=== PATIENT | male | born 1950 ===

== ENCOUNTER 2020-06-26 08:46 | Outpatient (REF) | payer MEDICARE, SELFPAY ==
[2020-06-26 10:31] LABS: Cholesterol 175 mg/dL; HDL Cholesterol 52 mg/dL; LDL Cholesterol Calculated 85 mg/dl; Triglycerides 193 mg/dL
== END 2020-06-26 08:47 | disposition home or self-care (01) ==
LOC: HO.LAB 08:46
PROVIDERS: PCP Family Medicine; Visit Provider Internal Medicine Cardiovascular Disease
DX: I25.10 Atherosclerotic heart disease of native coronary artery without angina pectoris (principal); I10 Essential (primary) hypertension; Z95.1 Presence of aortocoronary bypass graft
CPT/HCPCS: 36415; 80061

== ENCOUNTER 2020-07-20 09:29 | Outpatient (REF) | payer MEDICARE, SELFPAY ==
[2020-07-20 10:54] LABS: MANUAL DIFF FLAG NO
[2020-07-20 10:59] LABS: Basophils Percent Auto 0.5 % (0-2); Eosinophils Absolute Auto 0.3 X10*3/uL (0.0-0.4); Eosinophils Percent Auto 3.9 % (0-4); Hematocrit 46.9 % (42-52); Hemoglobin 15.7 g/dl (14.0-18.0); Imm Gran Abs Auto 0.02 X10*3/uL (0.00-0.03); Imm Gran Pct Auto 0.2 % (0.0-0.4); Lymphocytes Absolute Auto 1.2 X10*3/uL (1.2-4.9); Lymphocytes Percent Auto 14.1 % (20-40); Mean Corpuscular HGB Conc 33.5 g/dl (31.0-36.0); Mean Corpuscular Hemoglobin 29.3 pg (27.0-33.0); Mean Corpuscular Volume 87.7 fL (80-98); Monocytes Absolute Auto 0.6 X10*3/uL (0.1-1.2); Monocytes Percent Auto 7.2 % (2-11); Neutrophils Absolute Auto 6.3 X10*3/uL (2.0-8.3); Neutrophils Percent Auto 74.1 % (45-73); Platelet Count 206 X10*3/uL (160-400); Red Blood Count 5.35 X10*6/uL (4.60-5.80); Red Cell Distribution Width 12.5 % (11.0-16.0); White Blood Count 8.5 X10*3/uL (4.8-10.8)
[2020-07-20 11:03] LABS: Appearance Urine CLEAR; Color Urine YELLOW; Glucose Urine UA >=1000 MG/DL (NEG); Leukocyte Esterase Urine NEG (NEG); Nitrite Urine NEG (NEG); Specific Gravity - Urine 1.025 (1.005-1.025); Urine Blood NEG (NEG); Urine Ketones NEG (NEG); Urine Protein 1+ MG/DL (NEG-TRACE)
[2020-07-20 11:23] LABS: Anion Gap 16 (12-20); Blood Urea Nitrogen 31 mg/dL (9-16); Calcium 9.1 mg/dL (8.4-10.2); Carbon Dioxide 23 mmol/L (22-29); Chloride 104 mmol/L (96-108); Estimated Glomerular Filt Rate 57; Potassium 4.8 mmol/L (3.3-5.1); Sodium 138 mmol/L (135-145)
[2020-07-20 11:25] LABS: Alanine Aminotransferase 17 U/L (0-40); Albumin Level 4.1 g/dL (3.5-5.0); Alkaline Phosphatase 89 U/L (39-117); Anion Gap 13 (12-20); Aspartate Amino Transferase 18 U/L (5-37); Bilirubin Total 0.4 mg/dL (0.0-1.0); Blood Urea Nitrogen 30 mg/dL (9-16); Calcium 8.8 mg/dL (8.4-10.2); Carbon Dioxide 25 mmol/L (22-29); Chloride 104 mmol/L (96-108); Estimated Glomerular Filt Rate 53; Glucose Fasting 169 mg/dL (60-99); Iron 57 mcg/dL (45-160); Percent Iron Saturation 19 % (15-50); Potassium 4.8 mmol/L (3.3-5.1); Sodium 137 mmol/L (135-145); Total Iron Binding Capacity 298 mcg/dL (228-428); Total Protein 7.3 g/dL (6.5-8.0); Unsaturated Iron Binding 241 ug/dL
[2020-07-20 11:30] LABS: Cholesterol 82 mg/dL; HDL Cholesterol 43 mg/dL; LDL Cholesterol Calculated 12 mg/dl; Triglycerides 135 mg/dL
[2020-07-20 11:40] LABS: Mucus Urine TRACE /LPF; RBC Urine 0 /HPF (0); Squamous Epithelial Cell Urine TRACE /LPF; WBC Urine 0 /HPF (0-4)
[2020-07-20 11:42] LABS: Creatinine Urine 158.94 mg/dL; Microalbum/Creatinine Ratio Ur 251.4 ug/mg cr; Protein/Creatinine Ratio, Ur 0.45 (<0.2); Total Protein Urine Random 71 mg/dL (<12)
[2020-07-20 11:48] LABS: Estimated Average Glucose 197 mg/dL; Hemoglobin A1c % 8.5 %
[2020-07-20 11:53] LABS: Ferritin 86 ng/mL (20-250)
[2020-07-20 11:59] LABS: Folate 13.7 ng/mL (> or = 4.0); Vitamin B12 548 pg/mL (200-900)
== END 2020-07-20 09:30 | disposition home or self-care (01) ==
LOC: HO.LAB 09:29
PROVIDERS: Absent Provider Internal Medicine Cardiovascular Disease; PCP Family Medicine; Visit Provider Internal Medicine Nephrology
DX: E11.65 Type 2 diabetes mellitus with hyperglycemia (principal); E78.5 Hyperlipidemia, unspecified; R80.9 Proteinuria, unspecified; I13.0 Hypertensive heart and chronic kidney disease with heart failure and stage 1 through stage 4 chronic kidney disease, or unspecified chronic kidney disease; E11.22 Type 2 diabetes mellitus with diabetic chronic kidney disease; N18.31 Chronic kidney disease, stage 3a; I50.22 Chronic systolic (congestive) heart failure
CPT/HCPCS: 36415; 80051; 80053; 80061; 81001; 81003; 82043; 82306; 82310; 82565; 82607; 82728; 82746; 83036; 83540; 84156; 84520; 85025

== ENCOUNTER 2020-07-24 08:25 | Outpatient (REF) | payer MEDICARE, SELFPAY | END 2020-07-24 08:26 | disposition home or self-care (01) | LOC: HO.LAB 08:25 | PROVIDERS: Visit Provider Internal Medicine | DX: Z20.822 Contact with and (suspected) exposure to COVID-19 (principal) | CPT/HCPCS: 36415; C9803; U0003; U0005 ==

== ENCOUNTER 2020-09-25 11:03 | Outpatient (REF) | payer MEDICARE, SELFPAY | END 2020-09-25 11:04 | disposition home or self-care (01) | LOC: HO.LAB 11:03 | PROVIDERS: Visit Provider Internal Medicine | DX: Z20.822 Contact with and (suspected) exposure to COVID-19 (principal) | CPT/HCPCS: C9803; U0003; U0005 ==

== ENCOUNTER 2020-10-16 09:27 | Outpatient (REF) | payer MEDICARE, SELFPAY | END 2020-10-16 09:28 | disposition home or self-care (01) | LOC: HO.LAB 09:27 | PROVIDERS: Visit Provider Internal Medicine | DX: Z20.822 Contact with and (suspected) exposure to COVID-19 (principal) | CPT/HCPCS: C9803; U0003; U0005 ==

== ENCOUNTER 2020-11-14 09:03 | Emergency (ER) | payer MEDICARE, SELFPAY ==
--- NOTE | ~2020-11-14 | XR_ITS ---
EXAMINATION: XR LUMBOSACRAL SPINE CLINICAL INFORMATION: Fall. Rule out fracture COMPARISON: None TECHNIQUE: Three views of the lumbosacral spine. FINDINGS: Mild straightening of lumbar lordosis. The vertebral heights, alignment and disc heights are normal. There is no visible acute fracture, dislocation or lytic process. The paravertebral soft tissues are normal. XR/XR lumbar spine 2-3V IMPRESSION: Mild straightening of lumbar lordosis likely spasm. No visible acute fracture, dislocation or lytic process seen.
[2020-11-14 09:34] VITALS: BP 186/101; PULSE 78; RESP 18; TEMP 36.6; O2SAT 96; BMI 21.8
--- NOTE | 2020-11-14 11:50 | ED.BACK ---
HPI - Back Pain/Injury General Chief Complaint: Back Pain/Injury Stated Complaint: back pain Time Seen by Provider: 11/14/20 11:20 History of Present Illness HPI Narrative: Patient complains of low back pain after a slip and fall where he hit his back last night, no numbness weakness or tingling no head injury no neck pain no other injury no change to bowel or bladder no incontinence Related Data Previous Rx's Medication Instructions Recorded alirocumab 75 mg/mL subcutaneous 75 mg SUBCUT Q2W 90 Days #7 ml 09/27/20 pen injector atorvastatin 80 mg tablet 80 mg PO BEDTIME #90 tab 09/27/20 acetaminophen 1,000 mg PO Q6H PRN #30 tab 11/14/20 lidocaine 1 patch TOPICAL DAILY #15 ea 11/14/20 oxycodone 5 mg PO Q6H PRN #10 tab 11/14/20 Allergies Allergy/AdvReac Type Severity Reaction Status Date / Time No Known Allergies Allergy Verified 11/15/20 14:47 Review of Systems Review of Systems: Positive for back pain negatives are no fever no chills no dizziness no weakness no numbness weakness or tingling no changes to bowel or bladder no dysuria no frequency no incontinence no radiation of pain no chest pain no neck pain no abdominal pain no rash Yes all other systems are reviewed and are negative PMFSH Past Medical History Source: nursing notes reviewed Social History Social History (System 11/15/20 @ 14:47 by Leslee Gaxiola) Advance Directives: No Advance Directives Information Provided: No Physical Exam Vital Signs: Vital Signs: Last Vital Signs Temp 97.9 F 11/14/20 12:44 Pulse 74 11/14/20 12:44 Resp 16 11/14/20 12:44 BP 167/96 H 11/14/20 12:44 Pulse Ox 99 11/14/20 12:44 Body Mass Index 21.8 General appearance no acute distress Head is normocephalic atraumatic Neck is supple and nontender The chest wall is nontender, lungs are clear to auscultation bilateral The heart no murmur The abdomen is soft nontender The back has lower lumbar tenderness, there is no bruising there was no skin rash the skin is normal there are no wounds, there is diffuse lower lumbar tenderness no focal bony tenderness, no CVA tenderness Extremities full range of motion x4 Neuro no gross motor or sensory deficit Course Course Course Narrative: For patient who sips and fell and developed pain in his back right after the fall did not show any lytic process, no fracture Patient responded well to analgesics and was discharged home feeling better Discharge Plan Discharge Clinical Impression: Strain of lumbar region Patient Disposition: Home, Self-Care Additional Instructions: Use Tylenol as needed You can use lidocaine patch as well If pain is not controlled and if needed you can use oxycodone narcotic Oxycodone nor cottage can cause constipation so use stool softener Colace Follow with primary doctor for physical therapy and further evaluation Return to ER any time for severe pain, fever, changes to bowel and bladder, inability to move her legs normally any worse condition or any concerns Prescriptions: New oxycodone 5 mg tablet 5 mg PO Q6H PRN (Reason: pain) Qty: 10 RF: 0 lidocaine 5 % adhesive patch,medicated 1 patch topical DAILY Qty: 15 RF: 0 acetaminophen 500 mg tablet 1,000 mg PO Q6H PRN (Reason: pain) Qty: 30 RF: 0 No Action atorvastatin 80 mg tablet 80 mg PO BEDTIME Qty: 90 RF: 3 Praluent Pen 75 mg/mL pen injector 75 mg subcut Q2W 90 Days Qty: 7 RF: 3 Interventions: ED Discharge Assessment Last Done: 11/14/20 14:08 Discharge Date/Time: 11/14/20 14:09
[2020-11-14 12:44] VITALS: BP 167/96; PULSE 74; RESP 16; TEMP 36.6; O2SAT 99
--- NOTE | 2020-11-14 12:46 | PC.NURSE ---
ambulatory to bathroom slow/steady
[2020-11-14] MEDS: oxyCODONE HCl Immed Release 5 MG TABLET PO (13:02)
== END 2020-11-14 14:09 | disposition home or self-care (01) ==
PROVIDERS: Emergency Provider Emergency Medicine; PCP Family Medicine
DX: S39.012A Strain of muscle, fascia and tendon of lower back, initial encounter (principal); W18.30XA Fall on same level, unspecified, initial encounter; Y93.9 Activity, unspecified; Y92.9 Unspecified place or not applicable; Y99.9 Unspecified external cause status; Z79.899 Other long term (current) drug therapy
CPT/HCPCS: 72100; 99284

== ENCOUNTER 2021-01-15 00:29 | Emergency (ER) | payer MEDICARE, SELFPAY ==
--- NOTE | 2021-01-15 | ECG_ITS ---
Test Reason : LOWER BACK PAIN Blood Pressure : / mmHG Vent. Rate : 073 BPM Atrial Rate : 073 BPM P-R Int : 178 ms QRS Dur : 108 ms QT Int : 398 ms P-R-T Axes : 036 -03 064 degrees QTc Int : 438 ms Normal sinus rhythm Possible Left atrial enlargement Left ventricular hypertrophy Abnormal ECG When compared with ECG of 03-FEB-2020 21:04, No significant change was found Referred By: Generic ED Physician Electronically Signed By:Javier Lira
--- NOTE | ~2021-01-15 | XR_ITS ---
EXAMINATION: XR CHEST CLINICAL INFORMATION: Cough. Pain. COMPARISON: 06/18/2019 TECHNIQUE: 2 views of the chest were obtained. FINDINGS: Normal symmetric lung volumes. No parenchymal consolidation. No pleural effusion. No pneumothorax. Cardiomediastinal silhouette and pulmonary vascularity are within normal limits. 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 No acute osseous abnormalities. XR/XR chest 2V IMPRESSION: No acute findings.
[2021-01-15 00:42] VITALS: BP 184/108; PULSE 72; RESP 16; TEMP 36.6; O2SAT 97; BMI 22.4
[2021-01-15 01:23] LABS: Basophils Percent Auto 0.3 % (0-2); Eosinophils Absolute Auto 0.3 X10*3/uL (0.0-0.4); Hematocrit 46.2 % (42-52); Hemoglobin 15.5 g/dl (14.0-18.0); Imm Gran Abs Auto 0.03 X10*3/uL (0.00-0.03); Imm Gran Pct Auto 0.3 % (0.0-0.4); Lymphocytes Absolute Auto 1.2 X10*3/uL (1.2-4.9); Lymphocytes Percent Auto 12.7 % (20-40); Mean Corpuscular HGB Conc 33.5 g/dl (31.0-36.0); Mean Corpuscular Hemoglobin 29.2 pg (27.0-33.0); Mean Platelet Volume 10.2 fL (9.4-12.4); Monocytes Absolute Auto 0.8 X10*3/uL (0.1-1.2); Monocytes Percent Auto 7.8 % (2-11); Neutrophils Absolute Auto 7.4 X10*3/uL (2.0-8.3); Neutrophils Percent Auto 75.9 % (45-73); Platelet Count 192 X10*3/uL (160-400); Red Blood Count 5.31 X10*6/uL (4.60-5.80); Red Cell Distribution Width 12.4 % (11.0-16.0); White Blood Count 9.8 X10*3/uL (4.8-10.8)
[2021-01-15 01:24] LABS: MANUAL DIFF FLAG NO
[2021-01-15 01:46] LABS: Troponin-I High Sensitivity 6.2 ng/L (<3.5-35.0)
[2021-01-15 01:48] LABS: Alanine Aminotransferase 11 U/L (0-40); Albumin Level 3.9 g/dL (3.5-5.0); Alkaline Phosphatase 87 U/L (39-117); Anion Gap 15 (12-20); Aspartate Amino Transferase 13 U/L (5-37); Bilirubin Total 0.4 mg/dL (0.0-1.0); Blood Urea Nitrogen 26 mg/dL (9-16); Calcium 9.8 mg/dL (8.4-10.2); Carbon Dioxide 24 mmol/L (22-29); Chloride 102 mmol/L (96-108); Creatinine Clr Calc Pharmacy 45.2; Estimated Glomerular Filt Rate 48; Glucose Random 182 mg/dL (60-115); Potassium 3.8 mmol/L (3.3-5.1); Sodium 137 mmol/L (135-145); Total Protein 7.3 g/dL (6.5-8.0)
[2021-01-15 02:57] VITALS: BP 158/88; PULSE 63; RESP 16; TEMP 36.4; O2SAT 96
[2021-01-15 03:16] LABS: Glucose Urine UA >=1000 MG/DL (NEG); Leukocyte Esterase Urine NEG (NEG); Nitrite Urine NEG (NEG); UACC Culture Trigger NO; Urine Blood NEG (NEG); Urine Ketones NEG (NEG); Urine Protein 2+ MG/DL (NEG-TRACE)
[2021-01-15 03:17] LABS: Appearance Urine CLEAR; Color Urine YELLOW
[2021-01-15 03:25] LABS: Hyaline Casts Urine 0-2 /LPF; RBC Urine 0 /HPF (0); Squamous Epithelial Cell Urine 2+ /LPF; WBC Urine 0-2 /HPF (0-4)
[2021-01-15 03:51] VITALS: BP 133/84; PULSE 63; RESP 15; O2SAT 96
--- NOTE | 2021-01-15 04:41 | ED_ITS ---
HPI - Back Pain/Injury General Chief Complaint: Back Pain/Injury Stated Complaint: lower back pain Time Seen by Provider: 01/15/21 04:30 Source: patient Mode of arrival: ambulatory History of Present Illness HPI Narrative: 70-year-old male who presents with acute onset of right lower back/chest wall pain that started while he was watching television and was not associated with any new cough, shortness of breath although the pain did worsen with deep inspiration as well as movement. In addition, patient denied any dizziness, radiation of the pain, nausea/vomiting and denies symptoms. Related Data Previous Rx's Medication Instructions Recorded alirocumab 75 mg/mL subcutaneous 75 mg SUBCUT Q2W 90 Days #7 ml 09/27/20 pen injector (Praluent Pen) atorvastatin 80 mg tablet 80 mg PO BEDTIME #90 tab 09/27/20 acetaminophen 500 mg tablet 1,000 mg PO Q6H PRN #30 tab 11/14/20 lidocaine 5 % topical patch 1 patch TOPICAL DAILY #15 ea 11/14/20 oxycodone 5 mg tablet 5 mg PO Q6H PRN #10 tab 11/14/20 Allergies Allergy/AdvReac Type Severity Reaction Status Date / Time No Known Allergies Allergy Verified 11/15/20 14:47 Review of Systems Review of Systems: Pertinent positives and negatives as stated in HPI 10 point review of systems is otherwise negative. [facility] Social History Social History (System 11/15/20 @ 14:47 by Leslee Gaxiola) Advance Directives: No Advance Directives Information Provided: No Physical Exam Vital Signs: Vital Signs: Last Vital Signs Temp 97.6 F 01/15/21 02:57 Pulse 63 01/15/21 03:51 Resp 15 01/15/21 03:51 BP 133/84 01/15/21 03:51 Pulse Ox 96 01/15/21 03:51 Body Mass Index 22.4 VITAL SIGNS: Reviewed. GENERAL: Well developed, well nourished, in no acute distress. HEAD: Normocephalic/atraumatic EYES: PERRLA, EOMI OROPHARYNX: no oral lesions noted, posterior pharynx clear LUNGS: Normal breath sounds. No adventitious sounds or accessory muscle use. SpO2<96>, posterior right, lower rib pain CARDIOVASCULAR: Regular rate and rhythm without noted murmurs, no JVD or lower extremity edema. ABDOMEN: Soft, non-tender, non-distended with bowel sounds, no CVA tenderness SKIN: Inspection of the skin reveals no rashes NEUROLOGIC: Alert and oriented x 4. Strength and sensation to light touch were grossly intact x 4. Course Course Course Narrative: 70-year-old male with history and clinical presentation most consistent with musculoskeletal pain in nature and review of all investigations without acute findings. Serial troponins were flat and EKG changes are without acute changes from prior. Low clinical suspicion for pneumonia or PE. All results were discussed with the patient and his at bedside, they were reassured and encouraged to follow up with their primary care provider in the next 2-3 days for re-evaluation. MDM - Back Pain/Injury Lab Data Result diagrams: 01/15/21 01:15 01/15/21 01:15 Labs: Lab Results 01/15/21 01/15/21 01/15/21 Range/Units 01:15 01:15 01:15 WBC 9.8 (4.8-10.8) X10*3/uL RBC 5.31 (4.60-5.80) X10*6/uL Hgb 15.5 (14.0-18.0) g/dl Hct 46.2 (42-52) % MCV 87.0 (80-98) fL MCH 29.2 (27.0-33.0) pg MCHC 33.5 (31.0-36.0) g/dl RDW 12.4 (11.0-16.0) % Plt Count 192 (160-400) X10*3/uL MPV 10.2 (9.4-12.4) fL Immature Gran % (Auto) 0.3 (0.0-0.4) % Neut % (Auto) 75.9 H (45-73) % Lymph % (Auto) 12.7 L (20-40) % [place] % (Auto) 7.8 (2-11) % Eos % (Auto) 3.0 (0-4) % Baso % (Auto) 0.3 (0-2) % Lymph # (Auto) 1.2 (1.2-4.9) X10*3/uL [place] # (Auto) 0.8 (0.1-1.2) X10*3/uL Eos # (Auto) 0.3 (0.0-0.4) X10*3/uL Baso # (Auto) 0.0 (0.0-0.2) X10*3/uL Abs Immat Gran (auto) 0.03 (0.00-0.03) X10*3/uL Absolute Neuts (auto) 7.4 (2.0-8.3) X10*3/uL Absolute Nucleated RBC 0.000 (0.0-0.012) X10*3/uL Nucleated RBC % (auto) 0.0 (0.0-0.2) /100WBC Sodium 137 (135-145) mmol/L Potassium 3.8 D (3.3-5.1) mmol/L Chloride 102 (96-108) mmol/L Carbon Dioxide 24 (22-29) mmol/L Anion Gap 15 (12-20) BUN 26 H (9-16) mg/dL Creatinine 1.46 H (0.5-1.4) mg/dL Estim Creat Clear Calc 45.2 Estimated GFR 48 Random Glucose 182 H (60-115) mg/dL Calcium 9.8 D (8.4-10.2) mg/dL Total Bilirubin 0.4 (0.0-1.0) mg/dL AST 13 (5-37) U/L ALT 11 (0-40) U/L Alkaline Phosphatase 87 (39-117) U/L Troponin I High Sens 6.2 (<3.5-35.0) ng/L Total Protein 7.3 (6.5-8.0) g/dL Albumin 3.9 (3.5-5.0) g/dL Urine Color Urine Appearance Urine pH (5.0-8.0) Ur Specific [place] (1.005-1.025) Urine Protein (NEG-TRACE) MG/DL Urine Glucose (UA) (NEG) MG/DL Urine Ketones (NEG) MG/DL Urine Blood (NEG) Urine Nitrite (NEG) Ur Leukocyte Esterase (NEG) Urine RBC (0) /HPF Urine WBC (0-4) /HPF Ur Squamous Epith Cells /LPF Urine Bacteria /LPF Hyaline Casts /LPF 01/15/21 01/15/21 Range/Units 02:58 04:36 WBC (4.8-10.8) X10*3/uL RBC (4.60-5.80) X10*6/uL Hgb (14.0-18.0) g/dl Hct (42-52) % MCV (80-98) fL MCH (27.0-33.0) pg MCHC (31.0-36.0) g/dl RDW (11.0-16.0) % Plt Count (160-400) X10*3/uL MPV (9.4-12.4) fL Immature Gran % (Auto) (0.0-0.4) % Neut % (Auto) (45-73) % Lymph % (Auto) (20-40) % [place] % (Auto) (2-11) % Eos % (Auto) (0-4) % Baso % (Auto) (0-2) % Lymph # (Auto) (1.2-4.9) X10*3/uL [place] # (Auto) (0.1-1.2) X10*3/uL Eos # (Auto) (0.0-0.4) X10*3/uL Baso # (Auto) (0.0-0.2) X10*3/uL Abs Immat Gran (auto) (0.00-0.03) X10*3/uL Absolute Neuts (auto) (2.0-8.3) X10*3/uL Absolute Nucleated RBC (0.0-0.012) X10*3/uL Nucleated RBC % (auto) (0.0-0.2) /100WBC Sodium (135-145) mmol/L Potassium (3.3-5.1) mmol/L Chloride (96-108) mmol/L Carbon Dioxide (22-29) mmol/L Anion Gap (12-20) BUN (9-16) mg/dL Creatinine (0.5-1.4) mg/dL Estim Creat Clear Calc Estimated GFR Random Glucose (60-115) mg/dL Calcium (8.4-10.2) mg/dL Total Bilirubin (0.0-1.0) mg/dL AST (5-37) U/L ALT (0-40) U/L Alkaline Phosphatase (39-117) U/L Troponin I High Sens 6.2 (<3.5-35.0) ng/L Total Protein (6.5-8.0) g/dL Albumin (3.5-5.0) g/dL Urine Color YELLOW Urine Appearance CLEAR Urine pH 6.0 (5.0-8.0) Ur Specific [place] 1.020 (1.005-1.025) Urine Protein 2+ H (NEG-TRACE) MG/DL Urine Glucose (UA) >=1000 H (NEG) MG/DL Urine Ketones NEG (NEG) MG/DL Urine Blood NEG (NEG) Urine Nitrite NEG (NEG) Ur Leukocyte Esterase NEG (NEG) Urine RBC 0 (0) /HPF Urine WBC 0-2 (0-4) /HPF Ur Squamous Epith Cells 2+ /LPF Urine Bacteria NONE /LPF Hyaline Casts 0-2 /LPF ECG Data Attestation: I personally reviewed and interpreted this ECG as follows: Prior ECG tracings: available for review (02/03/2020 no acute changes on comparison) Interpretation: Normal sinus rhythm, HR -73, no STEMI, NM/QTC are within normal limits and QRS-108 Discharge Plan Discharge Clinical Impression: Right-sided chest wall pain Patient Disposition: Home, Self-Care Instructions: Chest Wall Pain (ED) Additional Instructions: 1. Reanude todos los medicamentos caseros seg?n lo prescrito. 2. Tylenol 1000 mg, por v?a oral, cada 6 horas seg?n sea necesario para controlar el dolor. No exceda los 4000 mg en 24 horas. 3. Recomiende el parche de lidoca?na, est? disponible sin receta y debe aplic arse en el ?maegan de m?xima sensibilidad omi se indica en el empaque exterior. 4. Omid un seguimiento con connors proveedor de atenci?n primaria para angelina reevaluaci?n y un tratamiento ambulatorio adicional. Regrese a la benigno de emergencias si magalys s?ntomas empeoran de manera aguda. Prescriptions: No Action atorvastatin 80 mg tablet 80 mg PO BEDTIME Qty: 90 RF: 3 Praluent Pen 75 mg/mL pen injector 75 mg subcut Q2W 90 Days Qty: 7 RF: 3 oxycodone 5 mg tablet 5 mg PO Q6H PRN (Reason: pain) Qty: 10 RF: 0 lidocaine 5 % adhesive patch,medicated 1 patch topical DAILY Qty: 15 RF: 0 acetaminophen 500 mg tablet 1,000 mg PO Q6H PRN (Reason: pain) Qty: 30 RF: 0 Referrals: Physician,Unknown [Primary Care Provider] - 2 days Print Language: Amharic
[2021-01-15 05:06] LABS: Troponin-I High Sensitivity 6.2 ng/L (<3.5-35.0)
[2021-01-15 06:00] VITALS: BP 156/94; PULSE 68; RESP 16; O2SAT 97
[2021-01-15] MEDS: Lidocaine 4 % Patch ADH..PATCH 1 PATCH TRANSDERMA (06:03)
[2021-01-15] MEDS: Acetaminophen 325 MG TABLET 975 MG PO (06:03)
[2021-01-15] MEDS: Ibuprofen 400 MG TABLET PO (06:04)
== END 2021-01-15 06:06 | disposition home or self-care (01) ==
PROVIDERS: Emergency Provider Student in an Organized Health Care Education/Training Program
DX: R07.89 Other chest pain (principal)
CPT/HCPCS: 36415; 71046; 80053; 81001; 84484; 85025; 93005; 99284

== ENCOUNTER 2021-02-24 09:16 | Outpatient (REF) | payer MEDICARE, SELFPAY ==
[2021-02-24 10:10] LABS: Cholesterol 156 mg/dL; HDL Cholesterol 50 mg/dL; LDL Cholesterol Calculated 68 mg/dl; Triglycerides 194 mg/dL
== END 2021-02-24 09:17 | disposition home or self-care (01) ==
LOC: HO.LAB 09:16
PROVIDERS: PCP Family Medicine; Visit Provider Internal Medicine Cardiovascular Disease
DX: I25.10 Atherosclerotic heart disease of native coronary artery without angina pectoris (principal)
CPT/HCPCS: 36415; 80061

== ENCOUNTER → 2021-03-08 12:08 | Outpatient (BNVA) | payer MEDICARE, SELFPAY | PROVIDERS: PCP Family Medicine; Referring Provider Family Medicine; Visit Provider Internal Medicine Cardiovascular Disease | DX: I25.10 Atherosclerotic heart disease of native coronary artery without angina pectoris (principal); I25.5 Ischemic cardiomyopathy | CPT/HCPCS: 99212 ==

== ENCOUNTER → 2021-04-12 13:20 | Outpatient (REF) | payer MEDICARE, SELFPAY ==
--- NOTE | 2021-04-12 14:13 | CA_ITS ---
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 [id number] LV systolic dysfunction with LVEF of 40-45% with impaired relaxation filling pattern 2. Normal cardiac valvular Doppler 3. Normal RV systolic pressure 4. No pericardial effusion Findings Left Ventricle Normal left ventricular cavity size. There is normal left ventricular wall thickness. The left ventricular systolic function is mild to moderately decreased. The visually estimated ejection fraction is between 40-45%. Spectral Doppler is indicative of an impaired relaxation filling pattern. E/E prime ratio is between 8 and 15 consistent with indeterminate filling pressures. Wall Motion Rest Echo Findings The inferoseptal wall, the basal inferior, mid inferior, and basal inferolateral segments are hypokinetic. All other scored wall segments showed normal motion. Right Ventricle Normal right ventricular cavity size and systolic function. Atria The left atrium is likely dilated. There is a mobile atrial septum noted. There is no evidence of interatrial shunt. The right atrium is normal in size. Aortic Valve There is mild calcification of the aortic valve. There is mild thickening of the aortic valve. There is no aortic valve stenosis. There is no aortic valve regurgitation. Mitral Valve There is mild anterior and posterior mitral leaflet thickening. There is trace mitral valve regurgitation. There is no mitral valve stenosis. Pulmonic Valve The pulmonic valve was not well visualized. Tricuspid Valve Normal tricuspid valve structure. There is mild tricuspid valve regurgitation. The right ventricular systolic pressure is normal. The right ventricular systolic pressure is 19 mmHg. Normal right atrial pressure. There is no evidence of pulmonary hypertension. Great Vessels All visible segments of the aorta are normal in size. The pulmonary artery was not well visualized. Venous The inferior vena cava is normal in size and collapses greater than 50% with inspiration. Pericardium/Pleural There is no evidence of pericardial effusion. Measurements 2D Linear Measurements IVSd: 1.30 0.6-0.9/0.6-1.0 cm LVIDd: 4.47 3.9-5.3/4.2-5.9 cm LVIDd Index: 2.42 2.4-3.2/2.2-3.1 cm/m2 LVIDs: 3.83 2.0-3.6 cm LVPWd: 1.03 0.7-1.1 cm Ao Root: 2.90 2.1-3.5 cm LA Diam: 3.80 2.7-3.8/3.0-4.0 cm LAIDs Index: 2.05 1.5-2.3 cm/m2 LV Mass: 234.12 67-162/88-224 g LV Mass Index: 126.55 43-95/49-115 g/m2 LVOT Diam: 2.20 3.0+(-)1.3 cm 2D Systolic Function EF 4C: 33.90 >55% EF 2C: 41.00 >55% Mitral Valve MV Pk E: 0.37 MV PK A: 0.67 MV Decel Time: 526.00 E/A: 0.60 E'Lateral: 8.92 E'Medial: 4.03 E/E' Med: 9.10 E/E' Lat: 4.10 PHT: 154.00 MVA PHT: 1.43 Decel Owen: 0.70 Aortic Valve AoV Pk Dawson: 1.53 AoV Pk Grad: 9.00 LVOT LVOT Pk Dawson: 0.71 LVOT Mn Dawson: 0.48 LVOT VTI: 0.13 LVOT Pk Grad: 2.00 LVOT Mn Grad: 1.00 LVOT Diam: 2.20 LVOT Area: 3.80 Diastolic Function MV Pk E: 0.37 MV Pk A: 0.67 E/A: 0.60 E'Medial: 4.03 E/E' Med: 9.10 E' Laterial: 8.92 E/E' Lat: 4.10 Right Ventricle TAPSE (mm): 1.39 Tricuspid Valve TR Pk Dawson: 2.01 TR Pk Grad: 16.00 RA Press: 3.00 RVSP: 19.00 Great Vessels Aorta Ao Root-2D: 2.90 2.0-3.7 cm Ao Asc: 3.10 2.1-3.4 cm Updated in Other Vendor System with Status of Final João Interiano MD electronically signed on 04/13/2021 2:00:09 PM with status of Final
== END ==
LOC: HO.CARD 13:20
PROVIDERS: PCP Family Medicine; Visit Provider Internal Medicine Cardiovascular Disease
DX: I25.5 Ischemic cardiomyopathy (principal)
CPT/HCPCS: 93306

== ENCOUNTER → 2021-05-14 09:47 | Outpatient (REF) | payer MEDICARE, SELFPAY | LOC: HO.CARD 09:47 | PROVIDERS: Visit Provider Internal Medicine Cardiovascular Disease | DX: Z13.89 Encounter for screening for other disorder (principal) | CPT/HCPCS: J0280; J2785 ==

== ENCOUNTER 2021-06-13 12:06 | Outpatient (REF) | payer MEDICARE, SELFPAY ==
[2021-06-13 15:34] LABS: COVID-19 Test Negative (Negative); IDNOW Serial# 55D5AD1C
== END 2021-06-13 12:07 | disposition home or self-care (01) ==
LOC: HO.LAB 12:06
PROVIDERS: Visit Provider Internal Medicine
DX: Z20.822 Contact with and (suspected) exposure to COVID-19 (principal)
CPT/HCPCS: 36415; 87635; C9803

== ENCOUNTER 2021-11-26 17:57 | Emergency (ER) | payer OTHER, SELFPAY ==
[2021-11-26 18:03] VITALS: BP 162/110; PULSE 89; RESP 16; TEMP 36.3; O2SAT 96; BMI 22.5
== END 2021-11-26 22:07 | disposition left against medical advice (07) ==
PROVIDERS: Emergency Provider Emergency Medicine; PCP Family Medicine
DX: G43.909 Migraine, unspecified, not intractable, without status migrainosus (principal)
CPT/HCPCS: 99281

== ENCOUNTER → 2022-02-14 08:11 | Outpatient (REF) | payer OTHER, SELFPAY ==
--- NOTE | ~2022-02-14 | NM_ITS ---
Myocardial perfusion study Indication: Ischemic cardiomyopathy to evaluate for myocardial ischemia Technique: The patient was brought in for a Lexiscan perfusion study on 02/14/2022. Patient performed low-level exercise and was injected 0.4 mg of Lexiscan intravenously. Within a minute of injection, 25 mCi of sestamibi was given intravenously. Images were obtained using the SPECT gamma camera interlaced with the gating device. Images were obtained in supine position. Resting perfusion study was performed on 02/15/2022. Patient was administered 25 mCi of sestamibi intravenously at rest. Images were then obtained in supine position. Images obtained with and without CT attenuation. Total DLP 69 mGy-cm. Images were processed with the software and compared side to side in short axis, horizontal long axis and vertical long axis views. Findings: The stress perfusion study showed non attenuated images show mildly to moderately reduced uptake in the septum, inferoseptal and inferior wall of the LV myocardium. Remainder of the LV myocardium is normally perfused. Attenuation corrected images show mildly reduced uptake in the inferoapical wall of the LV myocardium.. The gated study shows normal LV systolic function with calculated LVEF of 55%. LV cavity is mildly dilated size. The gated study shows reduced wall thickening and contraction of inferior segments. Resting study shows nontender images show no significant change in perfusion pattern compared to stress perfusion study. Attenuation corrected images show mildly reduced uptake in the inferior wall of the LV myocardium. Gating at rest reveals inferior wall motion abnormality with ejection fraction at 47%. The findings are consistent with no clear reversible defect suggestive of ischemia. Possible evidence of nontransmural infarct of the inferior wall.. NM/NM demetra perf SPECT rest & str Impression: 1. Myocardial perfusion imaging study shows no ischemia and possible nontransmural infarct of inferior wall 2. Gated LVEF is 55% with stress and 47% with rest 3. Transient ischemic dilatation not present EKG is nondiagnostic for ischemia
--- NOTE | 2022-02-14 08:13 | CA_ITS ---
Acquisition Time: 2022-02-14 08:30:40 Total Exercise Time: 00:02:00 Test Indications: CARDIOMYOPATHY Medications: SEE H Protocol: LEXISCAN Max HR: 100 BPM 67% of Pred: 148 BPM Max BP: 120/080 mmHG Max Work Load: 1.0 METS Pharmacological stress test with Lexiscan injection, while sitting and kicking his legs, without anginal symptoms, with frequent isolated PVCs and ventricular trigeminy and quadrigeminy, with normotensive response to injection, with nondiagnostic EKG for ischemia. Nuclear images pending. Test reviewed with Dr Interiano Referred By: Madison Ellington Overread By: MADISON ELLINGTON
== END ==
LOC: HO.CARD 08:11
PROVIDERS: Visit Provider Nurse Practitioner Family
DX: I25.5 Ischemic cardiomyopathy (principal)
CPT/HCPCS: 78452; 93017; A9500; J0280; J2785

== ENCOUNTER → 2022-03-07 13:35 | Outpatient (BNVA) | payer OTHER, SELFPAY | PROVIDERS: PCP Family Medicine; Referring Provider Family Medicine; Visit Provider Internal Medicine Cardiovascular Disease | DX: I25.10 Atherosclerotic heart disease of native coronary artery without angina pectoris (principal); I25.5 Ischemic cardiomyopathy | CPT/HCPCS: 93005; 99212 ==

== ENCOUNTER 2022-04-05 07:33 | Emergency (ER) | payer OTHER, SELFPAY ==
--- NOTE | ~2022-04-05 | XR_ITS ---
EXAMINATION: XR CHEST CLINICAL INFORMATION: Weakness. COMPARISON: 01/15/2021 chest radiographs. TECHNIQUE: Frontal view of the chest was obtained. FINDINGS: No significant abnormality is noted involving the heart, lungs, mediastinum, bony thorax or soft tissues. Multilevel sternotomy wires are intact. XR/XR chest 1V IMPRESSION: No acute cardiopulmonary process.
--- NOTE | 2022-04-05 07:37 | ED_ITS ---
HPI - Dizziness General Chief Complaint: Dizziness Stated Complaint: dizziness Time Seen by Provider: 04/05/22 07:34 Source: patient, old records reviewed and diplomatic interpreter Mode of arrival: EMS Limitations: no limitations History of Present Illness HPI Narrative: 71 yo male with hx of CAD s/p CABG x 4 in 2017, HTN, DM, HLD, ischemic cardiomyopathy here with c/o dizziness and fevers since last night. C/o runny nose and states he is so weak he cannot stand. Last took tylenol yesterday. Denies sick contacts, thinks he got his COVID shots. MD elicited complaint: lightheadedness, difficulty walking and other (fever) Onset (ago): day(s) (yesterday) Timing: gradual onset and intermittent Severity: moderate Description: lightheadedness and difficulty walking History of similar symptoms: No Exacerbating factors: movement/ambulation Relieving factors: remaining still Associated symptoms: fever, malaise and nasal congestion Related Data Home Medications Medication Instructions Recorded Confirmed amlodipine 10 mg tablet 10 mg PO QPM 03/08/21 03/07/22 aspirin 81 mg tablet,delayed 81 mg PO DAILY 03/08/21 03/07/22 release carvedilol 25 mg tablet 25 mg PO BID 03/08/21 03/07/22 empagliflozin 25 mg tablet 25 mg PO DAILY 03/08/21 03/07/22 (Jardiance) ezetimibe 10 mg tablet 10 mg PO BEDTIME 03/08/21 03/07/22 hydralazine 10 mg tablet 10 mg PO TID 03/08/21 03/07/22 lisinopril 40 mg tablet 40 mg PO DAILY 03/08/21 03/07/22 metformin 1,000 mg tablet 1,000 mg PO BID 03/08/21 03/07/22 mirtazapine 15 mg tablet 7.5 mg PO DAILY 03/08/21 03/07/22 pantoprazole 40 mg tablet,delayed 40 mg PO DAILY 03/08/21 03/07/22 release spironolactone 25 mg tablet 25 mg PO DAILY 03/08/21 03/07/22 dulaglutide 0.75 mg/0.5 mL mg subcut QWEEK 03/07/22 03/07/22 subcutaneous pen injector (Trulicity) Previous Rx's Medication Instructions Recorded acetaminophen 500 mg tablet 1,000 mg PO Q6H PRN pain #30 tabs 11/14/20 lidocaine 5 % topical patch 1 patch topical DAILY Pain #15 ea 11/14/20 atorvastatin 80 mg tablet 80 mg PO BEDTIME #90 tabs 11/05/21 alirocumab 75 mg/mL subcutaneous 75 mg subcut Q2W 90 days #7 mL 11/14/21 pen injector (Praluent Pen) Allergies Allergy/AdvReac Type Severity Reaction Status Date / Time No Known Allergies Allergy Verified 11/26/21 18:03 Review of Systems Review of Systems: Constitutional : pos Fever, No Chills, No Fatigue ENT/Mouth : No sore throat, pos Rhinorrhea, pos ear pain Eyes: No Eye Pain, No Swelling, No Redness Cardiovascular : No Chest Pain, No SOB, No Dyspnea on Exertion Respiratory : No Cough, No Sputum Gastrointestinal : No Nausea, No Vomiting, No Diarrhea, No abdominal Pain Genitourinary : No Dysuria, No Urinary Frequency, No Hematuria, Musculoskeletal : No joint pain, No Myalgias, No Joint Swelling Skin : No Skin Lesions, No rash Neuro : No Weakness, No Numbness, pos Dizziness, no Headache Psych : No Anxiety/Panic, No Depression Heme/Lymph: No Bruising, No Bleeding,No Lymphadenopathy Endocrine : No Polyuria, No Polydipsia All other systems reviewed and are negative [facility] Past Medical History Attestation statement: The following information was validated with the patient. Medical History CAD (coronary artery disease) Diabetes mellitus HTN (hypertension) Hyperlipidemia Ischemic cardiomyopathy Surgical History S/P CABG x 4 Social History Social History Alcohol intake: never Patient Tobacco Use Status: Never used Tobacco Use of substances other than those prescribed or required for medical reasons: No Advance Directives: No Advance Directives Information Provided: Yes Physical Exam Vital Signs: Vital Signs: Last Vital Signs Temp 98.6 F 04/05/22 09:47 Pulse 95 04/05/22 09:47 Resp 12 04/05/22 09:47 BP 111/68 04/05/22 09:47 Pulse Ox 94 04/05/22 09:47 O2 Del Method 04/05/22 09:47 BMI result Body Mass Index 22.4 Appearance: Alert. Oriented X3. No acute distress. Eyes: Pupils equal, round and reactive to light. ENT: Pharynx normal. bilateral TMs normal Neck: Normal inspection. Neck supple. CVS: tachycardic heart rate and rhythm. Pulses normal. Respiratory: No respiratory distress. Breath sounds normal. Abdomen: Soft and non-tender. Skin: Skin warm and dry. Normal skin color. Normal skin turgor. Extremities: No lower extremity edema. No calf ttp Neuro: Oriented X 3. No motor deficit. No sensory deficit. Course Course Course Narrative: + COVID which is not suprising - no hypoxia, no CP/SOB and patient's saturations > 93% 3 moderna vaccines in the past doubt VTE given lack of CP/SOB. given his poorly controlled cholesterol and need for immuno medication to control statin he is not a candidate to hold statin in light of paxlovid - he would also have to stop amlodipine and remeron. will refer for mAb it is the safest option for him. patient feels better stable for DC, wants to check in for test as well. will fill out mab form MDM - Dizziness MDM Narrative Medical decision making narrative: 71 yo male with hx of CAD s/p CABG x 4 in 2017, HTN, DM, HLD, ischemic cardiomyopathy presents with fevers and feeling lightheaded. At this time will need labs, cultures, lactic acid, (high suspicion viral syndrome) COVID/flu, tylenol, gentle fluids, UA - dispo per results and findings. Lab Data Result diagrams: 04/05/22 08:06 04/05/22 08:06 Labs: Lab Results 04/05/22 04/05/22 04/05/22 Range/Units 07:52 08:06 08:06 WBC 8.8 (4.8-10.8) X10*3/uL RBC 4.81 (4.60-5.80) X10*6/uL Hgb 13.6 L (14.0-18.0) g/dl Hct 41.5 L (42.0-52.0) % MCV 86.3 (80.0-98.0) fL MCH 28.3 (27.0-33.0) pg MCHC 32.8 (31.0-36.0) g/dl RDW 13.4 (11.0-16.0) % Plt Count 165 (160-400) X10*3/uL MPV 10.7 (9.4-12.4) fL Immature Gran % (Auto) 0.3 (0.0-0.4) % Neut % (Auto) 83.0 H (45-73) % Lymph % (Auto) 7.1 L (20-40) % [place] % (Auto) 8.4 (2-11) % Eos % (Auto) 1.0 (0-4) % Baso % (Auto) 0.2 (0-2) % Lymph # (Auto) 0.6 L (1.2-4.9) X10*3/uL [place] # (Auto) 0.7 (0.1-1.2) X10*3/uL Eos # (Auto) 0.1 (0.0-0.4) X10*3/uL Baso # (Auto) 0.0 (0.0-0.2) X10*3/uL Abs Immat Gran (auto) 0.03 (0.00-0.03) X10*3/uL Absolute Neuts (auto) 7.3 (2.0-8.3) x10*3/uL Absolute Nucleated RBC 0.000 (0.0-0.012) X10*3/uL Nucleated RBC % (auto) 0.0 (0.0-0.2) /100WBC ESR 40 H (0-15) MM/HR PT (10.0-13.1) SEC INR (0.9-1.1) Sodium (135-145) mmol/L Potassium (3.3-5.1) mmol/L Chloride (96-108) mmol/L Carbon Dioxide (22-29) mmol/L Anion Gap (12-20) BUN (9-16) mg/dL Creatinine (0.5-1.4) mg/dL Estim Creat Clear Calc Estimated GFR POC Glucose 158 H (60-115) mg/dL Random Glucose (60-115) mg/dL Lactic Acid (0.5-2.0) mmol/L Calcium (8.4-10.2) mg/dL Magnesium (1.6-2.6) mg/dL Total Bilirubin (0.0-1.0) mg/dL Direct Bilirubin (0.0-0.5) mg/dL AST (5-37) U/L ALT (0-40) U/L Alkaline Phosphatase (39-117) U/L Troponin I High Sens (<3.5-35.0) ng/L Total Protein (6.5-8.0) g/dL Albumin (3.5-5.0) g/dL COVID-19 (MARCELLUS) (Negative) COVID-19 Clin Com Influenza Type A (TASHA) (Negative) Influenza Type B (TASHA) (Negative) Influenza A & B Note 04/05/22 04/05/22 04/05/22 Range/Units 08:06 08:06 08:06 WBC (4.8-10.8) X10*3/uL RBC (4.60-5.80) X10*6/uL Hgb (14.0-18.0) g/dl Hct (42.0-52.0) % MCV (80.0-98.0) fL MCH (27.0-33.0) pg MCHC (31.0-36.0) g/dl RDW (11.0-16.0) % Plt Count (160-400) X10*3/uL MPV (9.4-12.4) fL Immature Gran % (Auto) (0.0-0.4) % Neut % (Auto) (45-73) % Lymph % (Auto) (20-40) % [place] % (Auto) (2-11) % Eos % (Auto) (0-4) % Baso % (Auto) (0-2) % Lymph # (Auto) (1.2-4.9) X10*3/uL [place] # (Auto) (0.1-1.2) X10*3/uL Eos # (Auto) (0.0-0.4) X10*3/uL Baso # (Auto) (0.0-0.2) X10*3/uL Abs Immat Gran (auto) (0.00-0.03) X10*3/uL Absolute Neuts (auto) (2.0-8.3) x10*3/uL Absolute Nucleated RBC (0.0-0.012) X10*3/uL Nucleated RBC % (auto) (0.0-0.2) /100WBC ESR (0-15) MM/HR PT 13.3 H (10.0-13.1) SEC INR 1.2 H (0.9-1.1) Sodium 137 (135-145) mmol/L Potassium 4.1 (3.3-5.1) mmol/L Chloride 102 (96-108) mmol/L Carbon Dioxide 25 (22-29) mmol/L Anion Gap 14 (12-20) BUN 18 H (9-16) mg/dL Creatinine 1.24 (0.5-1.4) mg/dL Estim Creat Clear Calc 54.0 Estimated GFR 57 POC Glucose (60-115) mg/dL Random Glucose 171 H (60-115) mg/dL Lactic Acid (0.5-2.0) mmol/L Calcium 8.9 D (8.4-10.2) mg/dL Magnesium 1.6 (1.6-2.6) mg/dL Total Bilirubin 0.6 (0.0-1.0) mg/dL Direct Bilirubin 0.2 (0.0-0.5) mg/dL AST 16 (5-37) U/L ALT 10 (0-40) U/L Alkaline Phosphatase 79 (39-117) U/L Troponin I High Sens 9.9 (<3.5-35.0) ng/L Total Protein 7.1 (6.5-8.0) g/dL Albumin 3.7 (3.5-5.0) g/dL COVID-19 (MARCELLUS) (Negative) COVID-19 Clin Com Influenza Type A (TASHA) (Negative) Influenza Type B (TASHA) (Negative) Influenza A & B Note 04/05/22 04/05/22 04/05/22 Range/Units 08:06 08:15 08:15 WBC (4.8-10.8) X10*3/uL RBC (4.60-5.80) X10*6/uL Hgb (14.0-18.0) g/dl Hct (42.0-52.0) % MCV (80.0-98.0) fL MCH (27.0-33.0) pg MCHC (31.0-36.0) g/dl RDW (11.0-16.0) % Plt Count (160-400) X10*3/uL MPV (9.4-12.4) fL Immature Gran % (Auto) (0.0-0.4) % Neut % (Auto) (45-73) % Lymph % (Auto) (20-40) % [place] % (Auto) (2-11) % Eos % (Auto) (0-4) % Baso % (Auto) (0-2) % Lymph # (Auto) (1.2-4.9) X10*3/uL [place] # (Auto) (0.1-1.2) X10*3/uL Eos # (Auto) (0.0-0.4) X10*3/uL Baso # (Auto) (0.0-0.2) X10*3/uL Abs Immat Gran (auto) (0.00-0.03) X10*3/uL Absolute Neuts (auto) (2.0-8.3) x10*3/uL Absolute Nucleated RBC (0.0-0.012) X10*3/uL Nucleated RBC % (auto) (0.0-0.2) /100WBC ESR (0-15) MM/HR PT (10.0-13.1) SEC INR (0.9-1.1) Sodium (135-145) mmol/L Potassium (3.3-5.1) mmol/L Chloride (96-108) mmol/L Carbon Dioxide (22-29) mmol/L Anion Gap (12-20) BUN (9-16) mg/dL Creatinine (0.5-1.4) mg/dL Estim Creat Clear Calc Estimated GFR POC Glucose (60-115) mg/dL Random Glucose (60-115) mg/dL Lactic Acid 0.9 (0.5-2.0) mmol/L Calcium (8.4-10.2) mg/dL Magnesium (1.6-2.6) mg/dL Total Bilirubin (0.0-1.0) mg/dL Direct Bilirubin (0.0-0.5) mg/dL AST (5-37) U/L ALT (0-40) U/L Alkaline Phosphatase (39-117) U/L Troponin I High Sens (<3.5-35.0) ng/L Total Protein (6.5-8.0) g/dL Albumin (3.5-5.0) g/dL COVID-19 (MARCELLUS) Positive A (Negative) COVID-19 Clin Com See Note Influenza Type A (TASHA) Negative (Negative) Influenza Type B (TASHA) Negative (Negative) Influenza A & B Note See Note ECG Data Attestation: I personally reviewed and interpreted this ECG as follows: ECG interpretation date: 04/05/22 ECG interpretation time: 07:58 Interpretation: Rate: 108 Rhythm: sinus tachycardia with PVCs [place]: left Normal P waves. Normal ISA. Normal QRS complex. ST T wave : slight depression I and aVL, no GUSTABO qTC: normal prior studies: slightly more depressed changes in I and aVL The study has been interpreted contemporaneously by me. . Discharge Plan Discharge Clinical Impression: COVID-19 Fever Qualifiers: Fever type: unspecified Qualified Code(s): R50.9 - Fever, unspecified Patient Disposition: Home, Self-Care Instructions: Fever in Adults (ED), COVID-19 (Coronavirus Disease 2019) (ED) Additional Instructions: regrese a la benigno de emergencias si tiene dificultad para respirar o cualquier otra inquietud; si califica para la infusi?n, [facility] lo llamar? a [facility] Prescriptions: No Action atorvastatin 80 mg tablet 80 mg PO BEDTIME Qty: 90 3RF Praluent Pen 75 mg/mL pen injector 75 mg subcut Q2W 90 Days Qty: 7 3RF Rx Instructions: inject into abdomen, thigh, or upper arm (deltoid muscle); rotate sites lidocaine 5 % adhesive patch,medicated 1 patch topical DAILY Qty: 15 0RF Rx Instructions: leave on most painful area for up to 12 hrs acetaminophen 500 mg tablet 1,000 mg PO Q6H PRN (Reason: pain) Qty: 30 0RF amlodipine 10 mg tablet 10 mg PO QPM aspirin 81 mg tablet,delayed release (DR/EC) 81 mg PO DAILY ezetimibe 10 mg tablet 10 mg PO BEDTIME hydralazine 10 mg tablet 10 mg PO TID Jardiance 25 mg tablet 25 mg PO DAILY lisinopril 40 mg tablet 40 mg PO DAILY metformin 1,000 mg tablet 1,000 mg PO BID pantoprazole 40 mg tablet,delayed release (DR/EC) 40 mg PO DAILY mirtazapine 15 mg tablet 7.5 mg PO DAILY spironolactone 25 mg tablet 25 mg PO DAILY carvedilol 25 mg tablet 25 mg PO BID Trulicity 0.75 mg/0.5 mL pen injector subcut QWEEK
--- NOTE | 2022-04-05 07:41 | ECG_ITS ---
Test Reason : dizziness Blood Pressure : / mmHG Vent. Rate : 108 BPM Atrial Rate : 108 BPM P-R Int : 172 ms QRS Dur : 096 ms QT Int : 346 ms P-R-T Axes : 050 -08 069 degrees QTc Int : 463 ms Sinus tachycardia with frequent Premature ventricular complexes Possible Left atrial enlargement Abnormal ECG When compared with ECG of 15-JAN-2021 01:11, Premature ventricular complexes are now Present Heart rate has increased Referred By: Renu William Electronically Signed By:ALMA LOCKE MD
[2022-04-05 07:47] VITALS: BP 150/100; BP 181/95; PULSE 111; PULSE 113; RESP 18; TEMP 38.4; O2SAT 94; O2SAT 97; BMI 22.4
[2022-04-05 08:14] LABS: MANUAL DIFF FLAG NO
[2022-04-05 08:15] LABS: Basophils Percent Auto 0.2 % (0-2); Eosinophils Absolute Auto 0.1 X10*3/uL (0.0-0.4); Hematocrit 41.5 % (42.0-52.0); Hemoglobin 13.6 g/dl (14.0-18.0); Imm Gran Abs Auto 0.03 X10*3/uL (0.00-0.03); Imm Gran Pct Auto 0.3 % (0.0-0.4); Lymphocytes Absolute Auto 0.6 X10*3/uL (1.2-4.9); Lymphocytes Percent Auto 7.1 % (20-40); Mean Corpuscular HGB Conc 32.8 g/dl (31.0-36.0); Mean Corpuscular Hemoglobin 28.3 pg (27.0-33.0); Mean Corpuscular Volume 86.3 fL (80.0-98.0); Mean Platelet Volume 10.7 fL (9.4-12.4); Monocytes Absolute Auto 0.7 X10*3/uL (0.1-1.2); Monocytes Percent Auto 8.4 % (2-11); Neutrophils Absolute Auto 7.3 x10*3/uL (2.0-8.3); Platelet Count 165 X10*3/uL (160-400); Red Blood Count 4.81 X10*6/uL (4.60-5.80); Red Cell Distribution Width 13.4 % (11.0-16.0); White Blood Count 8.8 X10*3/uL (4.8-10.8)
[2022-04-05 08:21] LABS: Glucose, Whole Blood 158 mg/dL (60-115)
[2022-04-05 08:22] LABS: INTERNATIONAL NORM RATIO 1.2 (0.9-1.1); Prothrombin Time 13.3 SEC (10.0-13.1)
[2022-04-05] MEDS: Acetaminophen 325 MG TABLET 650 MG PO (08:23)
[2022-04-05] MEDS: 0.9 % Sodium Chloride 500 ML IV (08:24)
[2022-04-05 08:25] LABS: Lactic Acid 0.9 mmol/L (0.5-2.0)
[2022-04-05 08:31] LABS: Alanine Aminotransferase 10 U/L (0-40); Albumin Level 3.7 g/dL (3.5-5.0); Alkaline Phosphatase 79 U/L (39-117); Anion Gap 14 (12-20); Aspartate Amino Transferase 16 U/L (5-37); Bilirubin Direct 0.2 mg/dL (0.0-0.5); Bilirubin Total 0.6 mg/dL (0.0-1.0); Blood Urea Nitrogen 18 mg/dL (9-16); Calcium 8.9 mg/dL (8.4-10.2); Carbon Dioxide 25 mmol/L (22-29); Chloride 102 mmol/L (96-108); Estimated Glomerular Filt Rate 57; Glucose Random 171 mg/dL (60-115); Magnesium 1.6 mg/dL (1.6-2.6); Potassium 4.1 mmol/L (3.3-5.1); Sodium 137 mmol/L (135-145); Total Protein 7.1 g/dL (6.5-8.0)
[2022-04-05 08:35] LABS: Troponin-I High Sensitivity 9.9 ng/L (<3.5-35.0)
[2022-04-05 08:43] LABS: COVID-19 Test Positive (Negative); IDNOW Serial# 16C4AD1C
[2022-04-05 08:56] LABS: Influenza A Negative (Negative); Influenza B2 Negative (Negative)
[2022-04-05 09:02] LABS: Erythrocyte Sedimentation Rate 40 MM/HR (0-15)
[2022-04-05 09:25] VITALS: BP 128/75; PULSE 101; PULSE 98; RESP 14; TEMP 37.4; O2SAT 95
[2022-04-05 09:27] VITALS: BP 136/76; BP 141/76; PULSE 106; PULSE 99
[2022-04-05 09:47] VITALS: BP 111/68; PULSE 95; RESP 12; TEMP 37; O2SAT 94
[2022-04-05] MEDS: Ibuprofen 400 MG TABLET PO (09:51)
--- NOTE | 2022-04-05 10:08 | PC.NURSE ---
Ambulation trial completed, pt was able to stand without assist and ambulated within the room without SOB, dizziness or any other difficulties. O2 sats 96-98%. made aware
[2022-04-05 10:29] LABS: Appearance Urine Clear; Color Urine Yellow; Glucose Urine UA Negative (Negative); Leukocyte Esterase Urine Negative (Negative); Nitrite Urine Negative (Negative); Specific Gravity - Urine 1.015 (1.005-1.025); UMIC TRIGGER UACC YES; Urine Blood Negative (Negative); Urine Ketones Negative (Negative); Urine Protein 100 (2+) mg/dL (Neg-Trace)
[2022-04-05 10:35] LABS: Bacteria Urine None Seen (None Seen); RBC Urine 0-2 /HPF (0-2); Squamous Epithelial Cell Urine 0-2 /HPF (0-2); WBC Urine 0-5 /HPF (0-5)
== END 2022-04-05 10:25 | disposition home or self-care (01) ==
PROVIDERS: Emergency Provider Emergency Medicine; PCP Family Medicine
DX: U07.1 COVID-19 (principal); R50.9 Fever, unspecified; R42 Dizziness and giddiness; I10 Essential (primary) hypertension; E11.9 Type 2 diabetes mellitus without complications; E78.5 Hyperlipidemia, unspecified; Z79.82 Long term (current) use of aspirin; Z79.84 Long term (current) use of oral hypoglycemic drugs; Z79.899 Other long term (current) drug therapy; Z79.02 Long term (current) use of antithrombotics/antiplatelets
CPT/HCPCS: 71045; 80048; 80076; 81001; 82947; 83605; 83735; 84484; 85025; 85610; 85652; 87040; 87502; 87635; 93005; 96360; 99284; 99285

== ENCOUNTER → 2022-09-11 12:37 | Outpatient (REF) | payer OTHER, SELFPAY ==
--- NOTE | 2022-09-11 12:42 | HM_ITS ---
* Total monitoring time approximately 2 days. * Underlying rhythm is sinus. Average ventricular rate 84/Min. Range 65 to 116/Min. * Frequent premature ventricular contractions. Multiple morphologies. Couplets noted, some triplets, bigeminy and trigeminy. 18 short runs. Longest run about 3 beats. Overall burden 20%. * Rare premature atrial contractions. * No significant pauses or AV blocks. * No patient markers or events in diary. MTDD
== END ==
LOC: HO.CARD 12:37
PROVIDERS: Visit Provider Family Medicine
DX: I49.3 Ventricular premature depolarization (principal)
CPT/HCPCS: 93225

== ENCOUNTER → 2023-02-28 09:41 | Outpatient (REF) | payer OTHER, SELFPAY ==
--- NOTE | 2023-02-28 09:44 | CA_ITS ---
Transthoracic Echocardiogram Patient (Last, First, Middle): Johny Mansfield, Gender: Male Date of : 1950 Age: 72 Procedure Date: 02/28/2023 Procedure Type: Transthoracic Echocardiogram Location: OP Height: 175.26 cm Weight: 69.85 kg BSA: 1.85 m2 Heart Rate: 73 bpm BP: 120 / 80 mmHg Emergency Manager: JOSIE Referring MD: João Interiano MD Symptoms: I25.5 - Ischemic cardiomyopathy Study Quality: Adequate ECG Rhythm: Frequent ventricular premature beats Conclusions: - The left ventricular systolic function is mild to moderately decreased. The visually estimated ejection fraction is between 40-45%. - The mid inferior and mid inferolateral segments are hypokinetic. - The basal inferolateral segment is akinetic. - There is moderate to severely decreased right ventricular systolic function. - There is mild calcification of the aortic valve. - No obvious valvular pathology seen on this study. Findings Left Ventricle Normal left ventricular cavity size. The left ventricular systolic function is mild to moderately decreased. The visually estimated ejection fraction is between 40-45%. There is evidence of regional wall motion abnormalities. There is moderate septal asymmetric hypertrophy. Wall Motion Rest Echo Findings The mid inferior and mid inferolateral segments are hypokinetic. The basal inferolateral segment is akinetic. Right Ventricle Normal right ventricular cavity size. There is moderate to severely decreased right ventricular systolic function. Atria Both atria are normal in size. Aortic Valve There is a normal trileaflet aortic valve. There is mild calcification of the aortic valve. There is no aortic valve stenosis. There is no aortic valve regurgitation. Mitral Valve The mitral valve appears normal. There is mild anterior mitral leaflet thickening. There is trace mitral valve regurgitation. There is no mitral valve stenosis. Pulmonic Valve The pulmonic valve is likely normal. Tricuspid Valve Normal tricuspid valve structure. There is trace tricuspid valve regurgitation. There is no evidence of pulmonary hypertension. Great Vessels The asc aorta is normal in size. Venous The inferior vena cava is normal in size and collapses greater than 50% with inspiration. Pericardium/Pleural There is no evidence of pericardial effusion. Prior Study Comparison No significant change compared to prior study dated: 04/12/2021. Recommendations, Care & Conclusions No obvious valvular pathology seen on this study. Measurements 2D Linear Measurements IVSd: 1.30 0.6-0.9/0.6-1.0 cm LVIDd: 5.00 3.9-5.3/4.2-5.9 cm LVIDd Index: 2.70 2.4-3.2/2.2-3.1 cm/m2 LVIDs: 4.60 2.0-3.6 cm LVPWd: 0.90 0.7-1.1 cm LA Diam: 3.70 2.7-3.8/3.0-4.0 cm LAIDs Index: 2.00 1.5-2.3 cm/m2 LV Mass: 258.18 67-162/88-224 g LV Mass Index: 139.56 43-95/49-115 g/m2 LVOT Diam: 2.00 3.0+(-)1.3 cm 2D Systolic Function EF 4C: 54.70 >55% EF 2C: 50.40 >55% EF BiP: 52.50 >55% Mitral Valve MV Pk E: 0.70 MV PK A: 0.66 MV Decel Time: 168.00 E/A: 1.10 E'Lateral: 11.50 E'Medial: 4.46 E/E' Med: 15.70 E/E' Lat: 6.10 PHT: 49.00 MVA PHT: 4.49 Decel [place]: 4.15 Aortic Valve AoV Pk [place]: 1.55 AoV Mn Dawson: 1.17 AoV VTI: 0.33 AoV Pk Grad: 10.00 Aov Mn Grad: 6.00 WHITNEY Cont.VTI: 1.27 LVOT LVOT Pk [place]: 0.68 LVOT Mn [place]: 0.49 LVOT VTI: 0.13 LVOT Pk Grad: 2.00 LVOT Mn Grad: 1.00 LVOT Diam: 2.00 LVOT Area: 3.14 Diastolic Function MV Pk E: 0.70 MV Pk A: 0.66 E/A: 1.10 E'Medial: 4.46 E/E' Med: 15.70 E' Laterial: 11.50 E/E' Lat: 6.10 Right Ventricle TAPSE (mm): 7.77 TVS' Dawson: 7.22 Tricuspid Valve TR Pk [place]: 1.53 TR Pk Grad: 9.00 RA Press: 3.00 RVSP: 12.00 Great Vessels Aorta Sinus of Valsalva: 3.20 2.0-3.5 cm Ao Asc: 3.40 2.1-3.4 cm Pulmonary Valve PV Pk [place]: 0.98 Peak PV Grad: 4.00 Updated in Other Vendor System with Status of Final Alvaro Arellano MD electronically signed on 03/01/2023 1:25:52 PM with status of Final
== END ==
LOC: HO.CARD 09:41
PROVIDERS: PCP Family Medicine; Visit Provider Internal Medicine Cardiovascular Disease
DX: I25.5 Ischemic cardiomyopathy (principal)
CPT/HCPCS: 93306

== ENCOUNTER → 2023-02-28 09:44 | Outpatient (BNV) | payer OTHER, SELFPAY | PROVIDERS: PCP Family Medicine; Visit Provider Internal Medicine | DX: I25.5 Ischemic cardiomyopathy (principal) | CPT/HCPCS: 93306 ==

== ENCOUNTER 2023-03-13 13:43 | Outpatient (AMB) | payer OTHER, SELFPAY ==
[2023-03-13 14:23] VITALS: BP 144/82; PULSE 71; BMI 22.8
--- NOTE | 2023-03-13 14:23 | A.OFFVIS_ITS ---
Intake Vital Signs 03/13/23 14:23 Height 5 ft 9 in Weight 154 lb 5.177 oz BMI 22.8 BP 144/82 H Blood Pressure Location Rt brachial Position Sitting Pulse 71 Intake Visit Reasons: 1 year follow up and pre-op colonscopy Intake Note: 1 year follow-up with ekg and colonscopy clearance Perfect Binder Feeder Offbearer Required: Yes Perfect Binder Feeder Offbearer Name: Tiara cedeno Senior Cobol Developer: Senior Cobol Developer Present Accompanied by: Spouse Allergies No Known Allergies Allergy (Verified 11/26/21 18:03) Medication List - Last Reconciled 03/13/23 by João Interiano MD acetaminophen 1,000 mg (2 x 500 mg) PO Q6H PRN alirocumab (Praluent Pen) 75 mg subcut Q2W 90 days amlodipine 10 mg PO QPM aspirin 81 mg PO DAILY atorvastatin 80 mg PO BEDTIME carvedilol 25 mg PO BID dulaglutide (Trulicity) mg subcut QWEEK empagliflozin (Jardiance) 25 mg PO DAILY ezetimibe 10 mg PO BEDTIME hydralazine 10 mg PO TID lidocaine 5% 1 patch topical DAILY lisinopril 40 mg PO DAILY metformin 1,000 mg PO BID mirtazapine 7.5 mg PO DAILY pantoprazole 40 mg PO DAILY spironolactone 25 mg PO DAILY HPI HPI Comments History of Present Illness Details Johny comes for follow-up. History was obtained with help of nut picker. Patient says he feels very well. He can walk for 2-3 hours without any symptoms. Denies any exertional chest pain. No shortness of breath, orthopnea, PND. Takes all his medications. Scheduled for colonoscopy in near future. Denies any prolonged palpitations or irregular heartbeat. [facility] Medical History Hyperlipidemia Diabetes mellitus Ischemic cardiomyopathy HTN (hypertension) CAD (coronary artery disease) Surgical History S/P CABG x 4 Social History Alcohol intake: never Patient Tobacco Use Status: Never used Tobacco Review of Systems Const Denies chills, Denies fatigue, Denies fever(s), Denies frequent falls, Denies weakness, Denies weight gain and Denies weight loss ENT Denies dizziness Card Denies chest pain, Denies leg edema, Denies lightheadedness, Denies palpitations, Denies dyspnea, Denies dyspnea on exertion, Denies orthopnea and Denies other (loss of consciousness) Resp Denies cough, Denies dyspnea and Denies dyspnea on exertion GI Denies hematochezia and Denies change in stool character Musc Denies abnormal gait, Denies muscle weakness, Denies numbness, Denies radiating pain into limb and Denies tingling Neuro Denies abnormal gait, Denies dizziness, Denies frequent falls, Denies numbness, Denies tingling and Denies weakness Endo Denies fatigue and Denies palpitations Physical Exam Vital Signs: Last Vital Signs Pulse 71 03/13/23 14:23 BP 144/82 H 03/13/23 14:23 BMI result Body Mass Index 22.8 Const General: cooperative, comfortable, no acute distress, alert and awake Nutritional Appearance: thin Orientation/consciousness: patient oriented x3 Limitations: no limitations Neck Neck: Yes trachea midline, Yes supple and Yes no JVD Carotids: no bruits Resp Effort & Inspection: normal respiratory effort Auscultation: clear to auscultation bilaterally Cardio Jugular venous distension: no JVD Palpation: normal PMI Rate: regular rate Rhythm: abnormal rhythm with ectopic beats Heart sounds: S1 normal heart sound present, S2 normal heart sound present, no click, no gallops, no murmurs and no rubs GI Auscultation: normal bowel sounds Skin General skin exam: no rashes or lesions noted Neuro General: patient oriented x3 and no focal motor deficits Extrem General: Yes no clubbing, cyanosis or edema Psych Appearance: grossly normal Office Procedures EKG Details: EKG shows normal sinus rhythm with PVCs with LVH with repolarization abnormality [id number], Complete Assessment & Plan Assessment & Plan (1) Ischemic cardiomyopathy: Comment: Severe LV systolic dysfunction prior to coronary artery bypass grafting. Post coronary artery bypass grafting normalized LV systolic function along with neurohormonal modulation Code(s): I25.5 - Ischemic cardiomyopathy Plan: Patient [id number] LV systolic dysfunction secondary to ischemic cardiomyopathy. Clinically euvolemic and well compensated with no worsening symptoms. Continue aggressive risk factor modification and neurohormonal modulation with carvedilol, lisinopril as well as currently on Jardiance for diabetes as well as spironolactone therapy. Signs and symptoms of heart failure were discussed. Daily weight monitoring avoidance of salt loading was discussed. Continue to exercise regularly and participate in regular of weight loss program. (2) CAD (coronary artery disease): Code(s): I25.10 - Atherosclerotic heart disease of [place] coronary artery without angina pectoris Plan: CAD status post coronary bypass grafting remotely with myocardial perfusion imaging last year for surveillance showing no ischemia. Continue aggressive risk factor modification. Continue lifelong aspirin therapy. Continue aggressive vascular risk factor modification. LDL is well optimized on PCSK9 inhibitor therapy. Blood pressure is currently well optimized advised to monitor blood pressure at home maintain a log. Goal blood pressure less than 130/84. Continue aggressive diabetes management goal hemoglobin A1c less than 7%. Preoperative cardiovascular (3) Preoperative cardiovascular examination: Code(s): Z01.810 - Encounter for preprocedural cardiovascular examination Plan: Preoperative cardiovascular exam for colonoscopy which is considered low risk procedure. Patient currently not having any symptoms. He is optimized to undergo the procedure with low risk for perioperative cardiovascular morbidity mortality. Will follow up in the clinic in 1 year's time, sooner p.r.n.. Thank you for allowing me to partake in his care Coding Level of Care Code Est Pt Level 4 (80195) Diagnoses Ischemic cardiomyopathy I25.5 CAD (coronary artery disease) I25.10 Preoperative cardiovascular examination Z01.810 CPT Codes EKG - CPT: [id number], Complete ([id number])
== END 2023-03-13 14:55 | disposition home or self-care (01) ==
PROVIDERS: PCP Family Medicine; Visit Provider Internal Medicine Cardiovascular Disease
DX: I25.5 Ischemic cardiomyopathy (principal); I25.10 Atherosclerotic heart disease of native coronary artery without angina pectoris; Z01.810 Encounter for preprocedural cardiovascular examination
CPT/HCPCS: 93010; 99214

== ENCOUNTER → 2023-03-13 13:43 | Outpatient (BNVA) | payer OTHER, SELFPAY | PROVIDERS: PCP Family Medicine; Visit Provider Internal Medicine Cardiovascular Disease | DX: Z01.810 Encounter for preprocedural cardiovascular examination (principal); I25.5 Ischemic cardiomyopathy; I25.10 Atherosclerotic heart disease of native coronary artery without angina pectoris; Z79.899 Other long term (current) drug therapy | CPT/HCPCS: 93005; 99212 ==

== ENCOUNTER 2023-04-28 06:06 | Day surgery (SDC) | payer OTHER, SELFPAY ==
[2023-04-24 14:13] VITALS: BMI 22.7
[2023-04-28 07:25] VITALS: BP 162/105; PULSE 102; RESP 16; TEMP 37.1; O2SAT 95
[2023-04-28 07:30] LABS: Glucose, Whole Blood 143 mg/dL (60-115)
[2023-04-28] MEDS: Lactated Ringers 1,000 ML 50 ML IVCONT (07:33)
--- NOTE | 2023-04-28 08:07 | HO.ANESPROP2 ---
[facility] Active Problems Active Problems: All Active Problems (Updated 04/24/23 @ 14:01 by Yuliet Levy RN) COVID-19 (Acute) Ischemic cardiomyopathy (Acute) Hyperlipidemia (Acute) HTN (hypertension) (Acute) CAD (coronary artery disease) (Acute) Past Medical History Medical History (Updated 04/24/23 @ 14:01 by Yuliet Levy RN) GERD (gastroesophageal reflux disease) Chronic renal insufficiency Hyperlipidemia Diabetes mellitus Ischemic cardiomyopathy HTN (hypertension) CAD (coronary artery disease) Functional capacity: independent ambulation Family History Family history of problems with anesthesia: No Surgical History Surgical History (Updated 04/24/23 @ 14:01 by Yuliet Levy RN) H/O colonoscopy Hx of cholecystectomy S/P CABG x 4 Social History Social History Alcohol intake: never Patient Tobacco Use Status: Never used Tobacco Second Hand Smoke Exposure: No Use of substances other than those prescribed or required for medical reasons: No Are you DNR?: No Advance Directives: No Advance Directives Information Provided: Yes Advance Directives on File: No Meds Allergies Allergy/AdvReac Type Severity Reaction Status Date / Time No Known Allergies Allergy Verified 11/26/21 18:03 Active Medications: Current Medications Lactated Ringer's (Lr) 1,000 mls @ 50 mls/hr IVCONT .Q20H TIAN Last Admin: 04/28/23 07:33 Dose: 50 mls/hr Sodium Biphosphate/Sodium Phosphate (Sodium Phosphate,Douglas-Dibasic 133 Ml Enema) 133 ml KS ONCE PRN PRN Reason: Poor Colonoscopy Prep Results Home Medications Medication Instructions Recorded Confirmed Last Taken Type amlodipine 10 mg tablet 10 mg PO QPM 03/08/21 04/28/23 Unknown History aspirin 81 mg tablet,delayed 81 mg PO DAILY 03/08/21 04/28/23 Unknown History release carvedilol 25 mg tablet 25 mg PO BID 03/08/21 04/28/23 Unknown History empagliflozin 25 mg tablet 25 mg PO DAILY 03/08/21 04/28/23 Unknown History (Jardiance) ezetimibe 10 mg tablet 10 mg PO BEDTIME 03/08/21 04/28/23 Unknown History hydralazine 10 mg tablet 10 mg PO TID 03/08/21 04/28/23 Unknown History lisinopril 40 mg tablet 40 mg PO DAILY 03/08/21 04/28/23 Unknown History metformin 1,000 mg tablet 1,000 mg PO BID 03/08/21 04/28/23 Unknown History mirtazapine 15 mg tablet 7.5 mg PO DAILY 03/08/21 04/28/23 Unknown History pantoprazole 40 mg tablet,delayed 40 mg PO DAILY 03/08/21 04/28/23 Unknown History release spironolactone 25 mg tablet 25 mg PO DAILY 03/08/21 04/28/23 Unknown History dulaglutide 0.75 mg/0.5 mL 0.75 mg subcut QWEEK 03/07/22 04/28/23 Unknown History subcutaneous pen injector (Trulicity) alirocumab 75 mg/mL subcutaneous 75 mg subcut Q14D 04/24/23 04/28/23 Unknown History pen injector (Praluent Pen) Exam Exam Date and Time: April 28, 2023 0807 Height,Weight and Vital Signs: Height 5 ft 9 in Weight 69.853 kg Last Vital Signs Temp 98.8 F 04/28/23 07:25 Pulse 102 H 04/28/23 07:25 Resp 16 04/28/23 07:25 BP 162/105 H 04/28/23 07:25 Pulse Ox 95 04/28/23 07:25 O2 Del Method Room Air 04/28/23 07:25 Pertinent Lab Results Pertinent Lab Results: Laboratory Tests 04/28/23 07:20 POC Glucose 143 H Airway Mallampati Class: II TM Dist: >3cm Neck ROM: Full Heart: RRR Lungs: CTA Assessment and Plan Final Anesthetic Review Family History of Problems with Anesthesia: No ASA Class: II Final Preanesthetic Review: Meds/Allgs Chart Reviewed, Consent Obtained/Reviewed and Anes Risks/Benef Reviewed Patient Risk: Low Procedure Risk: Low Anesthetic Plan Anesthetic Plan: MAC: Disposition: Standard PACU
[2023-04-28 08:35] VITALS: BP 119/69; PULSE 85; RESP 16; TEMP 36.1; O2SAT 97
--- NOTE | 2023-04-28 08:39 | P.BOP_ITS ---
Brief Operative Note Date of Service: 04/28/23 Pre-op diagnosis: Screening Post-op diagnosis: other (Diverticulosis) Procedure: Colonoscopy to the cecum and TI Surgeon: Fausto Little MD Anesthesia: MAC Was an Blueprinting And Photocopy Supervisor used for this Procedure?: No Estimated blood loss (mL): 0 Pathology: none sent Condition: stable Disposition: PACU
[2023-04-28 08:50] VITALS: BP 138/80; PULSE 88; RESP 18; TEMP 36.3; O2SAT 95
--- NOTE | 2023-04-28 09:56 | OP_ITS ---
DATE OF SERVICE: 04/28/2023 SURGEON: Fausto Little MD INDICATIONS: The patient presents for evaluation of colorectal cancer screening. Full consent has been obtained from him for this, including risks of bleeding and perforation. PREOPERATIVE DIAGNOSIS: Colorectal cancer screening. POSTOPERATIVE DIAGNOSIS: PROCEDURE PERFORMED: Colonoscopy to the cecum and terminal ileum. ESTIMATED BLOOD LOSS: COMPLICATIONS: ANESTHESIA: Monitored anesthesia care. ASSISTANTS: SPECIMENS: POSTOPERATIVE DIAGNOSES: Colorectal cancer screening, diverticulosis, and internal hemorrhoids. DESCRIPTION OF PROCEDURE: The patient was placed in the left lateral decubitus position. The digital rectal exam revealed no abnormalities. The Olympus video pediatric colonoscope was entered into the rectum and advanced easily to the cecum. Once in the cecum, I did identify normal-appearing cecal pouch with appendiceal orifice and a normal-appearing ileocecal valve. The terminal ileum was cannulated and appeared normal. The scope was withdrawn back in the colon. Of note, the cecum and colon did require a lot of irrigation and suctioning, but ultimately good visualization was obtained of the cecum. Again it appeared normal without mass or ulceration. The scope was slowly withdrawn assessing all mucosal surfaces carefully. Ultimately, after a lot of irrigation and suctioning, the preparation was good. I did not visualize any sign of polyps, colitis, nor angiodysplasia. There was a mild amount of sigmoid diverticulosis. In the rectum, scope was retroflexed visualizing internal hemorrhoids, but no other pathology. The rectal mucosa appeared normal. The scope was straightened and withdrawn from the patient. He tolerated the procedure well, and was returned to the recovery area in stable condition. IMPRESSION: 1. Diverticulosis. 2. Internal hemorrhoids. PLAN: Given his age and the negative exam, I do not think he wound need any further screening colonoscopies in the future. He will otherwise see me on a p.r.n. basis. He was advised to resume his aspirin today. Fausto Little MD RMPepe/DIONIL / [id number]
--- NOTE | 2023-04-28 12:51 | HO.POSTANES ---
Post Anesthesia Evaluation Post Anesthesia Evaluation Date of Service: 04/28/23 Vital Signs: Vital Signs Temp Pulse Resp BP Pulse Ox O2 Del Method 04/28/23 08:50 97.4 F 88 18 138/80 95 Room Air 04/28/23 08:35 97.0 F 85 16 119/69 97 Room Air 04/28/23 07:25 98.8 F 102 H 16 162/105 H 95 Room Air Anesthesia: Monitored Mental Status: Awake Pain Control: Satisfactory Nausea/Vomiting: None Hydration: Adequate Anesthesia-Related Issues: No Anes. Related Issues
== END 2023-04-28 09:22 | disposition home or self-care (01) ==
PROVIDERS: PCP Family Medicine; Visit Provider Internal Medicine
PROC: 0DJD8ZZ Inspection of Lower Intestinal Tract, Via Natural or Artificial Opening Endoscopic (ICD-10-PCS; CPT 45378; principal; 2023-04-28 08:30)
DX: Z12.11 Encounter for screening for malignant neoplasm of colon (principal); K57.30 Diverticulosis of large intestine without perforation or abscess without bleeding; K64.8 Other hemorrhoids; E11.22 Type 2 diabetes mellitus with diabetic chronic kidney disease; I12.9 Hypertensive chronic kidney disease with stage 1 through stage 4 chronic kidney disease, or unspecified chronic kidney disease; N18.30 Chronic kidney disease, stage 3 unspecified; E78.5 Hyperlipidemia, unspecified; I25.5 Ischemic cardiomyopathy; K21.9 Gastro-esophageal reflux disease without esophagitis; Z79.85 Long-term (current) use of injectable non-insulin antidiabetic drugs; Z79.82 Long term (current) use of aspirin; Z79.899 Other long term (current) drug therapy
CPT/HCPCS: 45378; 82947; J2704

== ENCOUNTER 2023-05-09 12:21 | Inpatient (IN) | payer OTHER, SELFPAY ==
--- NOTE | ~2023-05-09 | XR_ITS ---
EXAMINATION: XR CHEST, 2 VIEWS CLINICAL INFORMATION: Dyspnea since getting flu shot COMPARISON: 04/05/2020 TECHNIQUE: PA and lateral views of the chest were obtained. FINDINGS: Sternal wires, ECG leads, and surgical clips overlie the chest. Small bilateral pleural effusions. Patchy opacities in the medial aspect of both lung bases likely correspond to atelectasis. Consolidation is possible. No separate areas of consolidation. No pneumonia thorax. Cardiac silhouette is borderline enlarged. Pulmonary vasculature appears normal. Mild degenerative spondylosis in the thoracic spine. No acute osseous findings. XR/XR chest 2V IMPRESSION: Small bilateral pleural effusions with associated bibasilar atelectasis. Consolidation in the medial lung bases (this was pneumonia or aspiration) is possible. Borderline cardiomegaly. No pulmonary edema.
--- NOTE | 2023-05-09 12:26 | ECG_ITS ---
Test Reason : CP Blood Pressure : / mmHG Vent. Rate : 102 BPM Atrial Rate : 102 BPM P-R Int : 162 ms QRS Dur : 098 ms QT Int : 386 ms P-R-T Axes : 025 -11 114 degrees QTc Int : 503 ms Sinus tachycardia with frequent Premature ventricular complexes Possible Left atrial enlargement Left ventricular hypertrophy ( R in aVL , Sokolow-Desai , [place] product ) ST & T wave abnormality, consider lateral ischemia Abnormal ECG When compared with ECG of 05-APR-2022 07:55, T wave inversion now evident in Lateral leads Referred By: Maribell Herrera Electronically Signed By:ALMA LOCKE MD
--- NOTE | 2023-05-09 12:37 | ED.GENADULT ---
HPI - General Adult General Chief complaint: Dyspnea Stated complaint: Chest pain Time Seen by Provider: 05/09/23 12:51 Source: patient and old records reviewed Mode of arrival: ambulatory Limitations: no limitations History of Present Illness HPI narrative: 72 yo male wiht PMH of CAD s/p CABG, ischemic cardiomyopathy EF 40%, DM, HTN, HLD, notes 1 week ago received his flu shot and since then dyspnea with wheezing. No fevers, no chest pain states he has never had this before. Notes symptoms are worse at night. This is not like his prior MIs or heart disease. He notes he has DUNN and hears him wheezing at night. MD complaint: shortness of breath Onset (ago): week(s) (1) Location: chest Radiation: non-radiation Severity: moderate Relieving factors: none Exacerbating factors: movement Associated symptoms: other (wheezing, dry cough) Treatments prior to arrival: none Related Data Home Medications Medication Instructions Recorded Confirmed amlodipine 10 mg tablet 10 mg PO QPM 03/08/21 04/28/23 aspirin 81 mg tablet,delayed 81 mg PO DAILY 03/08/21 04/28/23 release carvedilol 25 mg tablet 25 mg PO BID 03/08/21 04/28/23 empagliflozin 25 mg tablet 25 mg PO DAILY 03/08/21 04/28/23 (Jardiance) ezetimibe 10 mg tablet 10 mg PO BEDTIME 03/08/21 04/28/23 hydralazine 10 mg tablet 10 mg PO TID 03/08/21 04/28/23 lisinopril 40 mg tablet 40 mg PO DAILY 03/08/21 04/28/23 metformin 1,000 mg tablet 1,000 mg PO BID 03/08/21 04/28/23 mirtazapine 15 mg tablet 7.5 mg PO DAILY 03/08/21 04/28/23 pantoprazole 40 mg tablet,delayed 40 mg PO DAILY 03/08/21 04/28/23 release spironolactone 25 mg tablet 25 mg PO DAILY 03/08/21 04/28/23 dulaglutide 0.75 mg/0.5 mL 0.75 mg subcut QWEEK 03/07/22 04/28/23 subcutaneous pen injector ([facility]) alirocumab 75 mg/mL subcutaneous 75 mg subcut Q14D 04/24/23 04/28/23 pen injector (Praluent Pen) Previous Rx's Medication Instructions Recorded acetaminophen 500 mg tablet 1,000 mg (2 x 500 mg) PO Q6H PRN 11/14/20 pain #30 tabs lidocaine 5 % topical patch 1 patch topical DAILY Pain #15 ea 11/14/20 atorvastatin 80 mg tablet 80 mg PO BEDTIME #90 tabs 09/23/22 alirocumab 75 mg/mL subcutaneous 75 mg subcut Q2W 90 days #7 mL 11/08/22 pen injector (Praluent Pen) Allergies Allergy/AdvReac Type Severity Reaction Status Date / Time No Known Allergies Allergy Verified 11/26/21 18:03 Review of Systems Review of Systems: Constitutional : No Fever, No Chills ENT/Mouth : No sore throat, No Rhinorrhea, No Swallowing Difficulty Eyes: No Eye Pain, No Swelling, No Redness Cardiovascular : No Chest Pain, positive SOB, pos Orthopnea, no Edema Respiratory : No Cough, No Sputum, pos Wheezing, positive dyspnea Gastrointestinal : No Nausea, No Vomiting, No Diarrhea, No abdominal Pain, No Hematochezia, No Melena Genitourinary : No Dysuria, No Urinary Frequency, No Hematuria Musculoskeletal : No joint pain, No Myalgias Skin : No Skin Lesions, No rash Neuro : No Weakness, No Numbness, No Dizziness, No Headache Psych : No Anxiety/Panic, No Depression Heme/Lymph: No Bruising, No Lymphadenopathy Endocrine : No Polyuria, No Polydipsia All other systems reviewed and are negative PMFSH Past Medical History Attestation statement: The following information was validated with the patient. Source: old records reviewed Medical History GERD (gastroesophageal reflux disease) Chronic renal insufficiency Hyperlipidemia Diabetes mellitus Ischemic cardiomyopathy HTN (hypertension) CAD (coronary artery disease) Surgical History H/O colonoscopy Hx of cholecystectomy S/P CABG x 4 Social History Alcohol intake: former Patient Tobacco Use Status: Never used Tobacco Smoked in Last 30 Days: No Second Hand Smoke Exposure: No Use of substances other than those prescribed or required for medical reasons: No Advance Directives: Yes Advance Directives Information Provided: Yes Advance Directives on File: No Physical Exam ED Vital Signs: Vital Signs - 24 hr 05/09/23 12:38 05/09/23 12:54 05/09/23 14:11 Temperature 97.4 F 98.8 F Pulse Rate 104 H 109 H 85 Respiratory Rate 16 18 14 Blood Pressure 178/115 H 128/84 Pulse Oximetry 97 93 93 Oxygen Delivery Method Room Air Room Air Room Air BMI result Body Mass Index 23.2 Appearance: Alert. Oriented X3. No acute distress. Eyes: Pupils equal, round and reactive to light. ENT: Pharynx normal. Neck: Normal inspection. Neck supple. CVS: Normal heart rate and rhythm. Pulses normal. Respiratory: No respiratory distress. Breath sounds no wheezes but rales at bases Abdomen: Soft and nontender. Skin: Skin warm and dry. Normal skin color. Normal skin turgor. Extremities: No lower extremity edema. No calf ttp Neuro: Oriented X 3. No motor deficit. No sensory deficit. Course Course Course Narrative: This is a rapid medical exam: Additional HPI, ROS, PE not included below will be deferred to primary provider. Patient is a 72-year-old Citizen Of [place] speaking male with history of CAD, HTN, ischemic cardiomyopathy, HLD, chronic renal insufficiency presenting to the emergency department with complaint of shortness of breath after receiving the flu shot 1 week ago. Reports chest tightness, but denies chest pain. States that when he lays down he becomes more short of breath and his can hear wheezing. States did not have these symptoms prior to flu shot. Plan: EKG, labs, CXR Reevaluation(s) Reevaluation #1: 40mg IV lasix ordered given CXR / rales, BNP 1999 Reevaluation #2: age adjusted ddimer 365 - low susp for VTE Reevaluation #3: no WBC count no fevers no URI symptoms doubt pneumonia suspect CHF Medications Administered Discontinued Medications Generic Name Dose Route Start Last Admin Trade Name Freq PRN Reason Stop Dose Admin Furosemide 40 mg 05/09/23 13:54 05/09/23 14:17 Furosemide 40 Mg/4 Ml Vial IVPUSH 05/09/23 13:55 40 mg STAT STA Administration Protocol Medical Decision Making Medical Decision Making MDM Narrative: 72 yo male wiht PMH of CAD s/p CABG, ischemic cardiomyopathy EF 40%, DM, HTN, HLD here with c/o dyspnea, DUNN, orthopnea but no chest pain since flu shot. He is compliant with medications but notes he is having a hard time sleeping and walking. Does not remind him of prior CAD event. At this time labs, BNP, trop x 2, CXR, EKG x 2 has some signs of strain, ddimer. Differential Diagnosis Differential Diagnoses: The differential diagnosis associated with the presentation includes VTE, CHF, pneumonia, atypical ACS Admission/Observation Consideration of admission/observation: Escalation of care including admission/observation considered admit for diuresis Consult Healthcare Provider Management of the patient was discussed with: Hospitalist (will admit) Lab Data MDM Lab Attestation statement: I reviewed the patient's lab results. 05/09/23 13:06 05/09/23 13:06 Labs: Lab Results 05/09/23 05/09/23 05/09/23 Range/Units 13:05 13:06 13:51 WBC 6.2 (4.8-10.8) X10*3/uL RBC 5.51 (4.60-5.80) X10*6/uL Hgb 15.4 (14.0-18.0) g/dl Hct 48.2 (42.0-52.0) % MCV 87.5 (80.0-98.0) fL MCH 27.9 (27.0-33.0) pg MCHC 32.0 (31.0-36.0) g/dl RDW 13.5 (11.0-16.0) % Plt Count 195 (160-400) X10*3/uL MPV 10.9 (9.4-12.4) fL Immature Gran % (Auto) 0.3 (0.0-0.4) % Neut % (Auto) 69.7 (45-73) % Lymph % (Auto) 16.1 L (20-40) % [place] % (Auto) 8.9 (2-11) % Eos % (Auto) 4.5 H (0-4) % Baso % (Auto) 0.5 (0-2) % Lymph # (Auto) 1.0 L (1.2-4.9) X10*3/uL [place] # (Auto) 0.6 (0.1-1.2) X10*3/uL Eos # (Auto) 0.3 (0.0-0.4) X10*3/uL Baso # (Auto) 0.0 (0.0-0.2) X10*3/uL Abs Immat Gran (auto) 0.02 (0.00-0.03) X10*3/uL Absolute Neuts (auto) 4.3 (2.0-8.3) x10*3/uL Absolute Nucleated RBC 0.000 (0.0-0.012) X10*3/uL Nucleated RBC % (auto) 0.0 (0.0-0.2) /100WBC PT 12.4 (11.1-13.3) SEC INR 1.0 (0.9-1.1) D-Dimer High Sensitivty 368 NG/ML Sodium 143 (135-145) mmol/L Potassium 4.0 (3.3-5.1) mmol/L Chloride 107 (96-108) mmol/L Carbon Dioxide 27 (22-29) mmol/L Anion Gap 13 (12-20) BUN 26 H (9-16) mg/dL Creatinine 1.47 H (0.5-1.4) mg/dL Estim Creat Clear Calc 44.7 Estimated GFR 47 Random Glucose 146 H (60-115) mg/dL Calcium 9.6 D (8.4-10.2) mg/dL Total Bilirubin 0.4 (0.0-1.0) mg/dL AST 27 (5-37) U/L ALT 30 (0-40) U/L Alkaline Phosphatase 78 (39-117) U/L Troponin I High Sens 38.8 H (<3.5-35.0) ng/L B-Natriuretic Peptide 2000 H (<100) pg/mL Total Protein 7.5 (6.5-8.0) g/dL Albumin 3.7 (3.5-5.0) g/dL COVID-19 (MARCELLUS) Negative (Negative) COVID-19 Clin Com See Note Influenza Type A (TASHA) Negative (Negative) Influenza Type B (TASHA) Negative (Negative) Influenza A & B Note See Note Independent Interpretation I performed an independent interpretation of an: EKG and Plain X-Ray (CHF) Interpretation: Rate: 102 Rhythm: sinus tachycardia with PVCs [place]: left , LVH with strain Normal P waves. Normal ISA. Normal QRS complex. Poor R wave progression ST T wave : tall T waves V2, no GUSTABO, inverted t waves I and aVL qTC: normal prior studies: new anterior T wave changes The study has been interpreted contemporaneously by me. . Radiology Impression Discussion of test interpretation with radiology: I have reviewed the radiologist's reading. Independent Historian Clinical information obtained from an independent historian. History obtained from or confirmed by: Spouse External Record Review External record reviewed: Inpatient record Discharge Plan Discharge Clinical Impression: Congestive heart failure Qualifiers: Heart failure type: unspecified Heart failure chronicity: acute Qualified Code(s): I50.9 - Heart failure, unspecified Patient Disposition: Admitted As Inpatient Prescriptions: No Action atorvastatin 80 mg tablet 80 mg PO BEDTIME Qty: 90 3RF Praluent Pen 75 mg/mL pen injector 75 mg subcut Q2W 90 Days Qty: 7 3RF Rx Instructions: inject into abdomen, thigh, or upper arm (deltoid muscle); rotate sites lidocaine 5 % adhesive patch,medicated 1 patch topical DAILY Qty: 15 0RF Rx Instructions: leave on most painful area for up to 12 hrs acetaminophen 500 mg tablet 1,000 mg PO Q6H PRN (Reason: pain) Qty: 30 0RF Praluent Pen 75 mg/mL Pen Injector 75 mg SUBCUT Q14D amlodipine 10 mg tablet 10 mg PO QPM aspirin 81 mg tablet,delayed release (DR/EC) 81 mg PO DAILY ezetimibe 10 mg tablet 10 mg PO BEDTIME hydralazine 10 mg tablet 10 mg PO TID Jardiance 25 mg tablet 25 mg PO DAILY lisinopril 40 mg tablet 40 mg PO DAILY metformin 1,000 mg tablet 1,000 mg PO BID pantoprazole 40 mg tablet,delayed release (DR/EC) 40 mg PO DAILY mirtazapine 15 mg tablet 7.5 mg PO DAILY spironolactone 25 mg tablet 25 mg PO DAILY carvedilol 25 mg tablet 25 mg PO BID Trulicity 0.75 mg/0.5 mL pen injector 0.75 mg subcut QWEEK
[2023-05-09 12:38] VITALS: BP 178/115; PULSE 104; RESP 16; TEMP 36.3; O2SAT 97; BMI 23.2
--- NOTE | 2023-05-09 12:39 | ECG_ITS ---
Test Reason : CP REPEAT Blood Pressure : / mmHG Vent. Rate : 102 BPM Atrial Rate : 104 BPM P-R Int : 156 ms QRS Dur : 104 ms QT Int : 362 ms P-R-T Axes : 020 -11 149 degrees QTc Int : 471 ms Sinus tachycardia Voltage criteria for left ventricular hypertrophy ( R in aVL , Sokolow-Desai , [place] product ) ST & T wave abnormality, consider lateral ischemia Abnormal ECG When compared with ECG of 09-MAY-2023 12:35, No significant changes seen Referred By: Maribell Herrera Electronically Signed By:ALMA LOCKE MD
[2023-05-09 12:54] VITALS: PULSE 109; RESP 18; TEMP 37.1; O2SAT 93
--- NOTE | 2023-05-09 13:10 | PC.NURSE ---
Patient reports chest pressure and sob with exertion. Denies chest pain or headache. Lungs with rales at bases. IV placed, lab work obtained per order
[2023-05-09 13:11] LABS: MANUAL DIFF FLAG NO
[2023-05-09 13:14] LABS: Basophils Percent Auto 0.5 % (0-2); Eosinophils Absolute Auto 0.3 X10*3/uL (0.0-0.4); Eosinophils Percent Auto 4.5 % (0-4); Hematocrit 48.2 % (42.0-52.0); Hemoglobin 15.4 g/dl (14.0-18.0); Imm Gran Abs Auto 0.02 X10*3/uL (0.00-0.03); Imm Gran Pct Auto 0.3 % (0.0-0.4); Lymphocytes Percent Auto 16.1 % (20-40); Mean Corpuscular Hemoglobin 27.9 pg (27.0-33.0); Mean Corpuscular Volume 87.5 fL (80.0-98.0); Mean Platelet Volume 10.9 fL (9.4-12.4); Monocytes Absolute Auto 0.6 X10*3/uL (0.1-1.2); Monocytes Percent Auto 8.9 % (2-11); Neutrophils Absolute Auto 4.3 x10*3/uL (2.0-8.3); Neutrophils Percent Auto 69.7 % (45-73); Platelet Count 195 X10*3/uL (160-400); Red Blood Count 5.51 X10*6/uL (4.60-5.80); Red Cell Distribution Width 13.5 % (11.0-16.0); White Blood Count 6.2 X10*3/uL (4.8-10.8)
[2023-05-09 13:22] LABS: Prothrombin Time 12.4 SEC (11.1-13.3)
[2023-05-09 13:24] LABS: D Dimer High Sensitivity 368 NG/ML
[2023-05-09 13:39] LABS: Alanine Aminotransferase 30 U/L (0-40); Albumin Level 3.7 g/dL (3.5-5.0); Alkaline Phosphatase 78 U/L (39-117); Anion Gap 13 (12-20); Aspartate Amino Transferase 27 U/L (5-37); Bilirubin Total 0.4 mg/dL (0.0-1.0); Blood Urea Nitrogen 26 mg/dL (9-16); Calcium 9.6 mg/dL (8.4-10.2); Carbon Dioxide 27 mmol/L (22-29); Chloride 107 mmol/L (96-108); Creatinine Clr Calc Pharmacy 44.7; Estimated Glomerular Filt Rate 47; Glucose Random 146 mg/dL (60-115); Sodium 143 mmol/L (135-145); Total Protein 7.5 g/dL (6.5-8.0)
[2023-05-09 13:46] LABS: B Type Natriuretic Peptide 2000 pg/mL (<100)
[2023-05-09 13:46] LABS: Troponin-I High Sensitivity 38.8 ng/L (<3.5-35.0)
[2023-05-09 14:10] LABS: COVID-19 Test Negative (Negative); IDNOW Serial# BCCEAD1C
[2023-05-09 14:11] VITALS: BP 128/84; PULSE 85; RESP 14; O2SAT 93
[2023-05-09 14:13] LABS: IDNOW Serial# 08D9AD1C; Influenza A Negative (Negative); Influenza B2 Negative (Negative)
[2023-05-09] MEDS: Furosemide 40 MG/4 ML VIAL IVPUSH (14:17)
[2023-05-09 15:26] LABS: Troponin-I High Sensitivity 45.1 ng/L (<3.5-35.0)
[2023-05-09 16:00] VITALS: BP 134/91; PULSE 80; RESP 16; TEMP 36.6; O2SAT 98
--- NOTE | 2023-05-09 16:04 | MHC.EDTECH ---
This pct assumed care of pt at 1500 ,vitals taken ,And pt belongings list done ,pt family members at bed side ,400 ml urine empty from urinal .
--- NOTE | 2023-05-09 16:38 | PM.IMHP ---
History of Present Illness Date of Service: 05/09/23 Attending physician on admission: [facility] Chief Complaint: villalba 72-year-old male with CKD stage 3, [id number] type 2 diabetes, hyperlipidemia, cardiomyopathy, coronary artery disease s/p CABG, hypertension, GERD, heart failure reduced ejection fraction who presents to the ED earlier today for evaluation of dyspnea on exertion, intermittent pleuritic chest pain, and wheezing ongoing for 2 days. He states that he feels like the wheezing actually started about 3 weeks ago after receiving the influenza vaccine. He also acknowledges associated orthopnea and PND. Intermittent dry cough. Denies any recent illness. No fevers, chills, abdominal pain, nausea, vomiting, diarrhea, lightheadedness, syncope, shortness of breath at rest, palpitations, retrosternal chest pressure. On arrival, vital signs stable. Hematology studies unremarkable. Renal function baseline, electrolyte levels normal. Initial troponin 38.8, repeat 45.1. BNP 2000. Negative for COVID-19, influenza, RSV. Chest x-ray shows small bilateral pleural effusions with associated bibasilar atelectasis. There is also possible consolidation in the medial lung bases that is possible. In the ED has received 40 mg IV Lasix. Seen with Arabic interpretor Review of Systems Review of Systems: General: No fevers, malaise, unintentional weight loss HEENT: No blurred vision, diplopia. No sore throat, nasal congestion, rhinorrhea, sinus pain, ear pain Cardiovascular: No chest pressure, palpitations, or leg edema Respiratory: +villalba, +wheezing, +orthopnea, +PND. No shortness of breath at rest, productive cough GI: No abdominal pain, nausea, vomiting, diarrhea, constipation, melena, hematochezia : No dysuria, hematuria, increased urinary frequency, decreased urinary output MSK: No myalgia, back pain. +pleuritic chest pain Neuro: No headaches, weakness, paresthesias Skin: No rashes or lesions [facility] Medical History GERD (gastroesophageal reflux disease) Chronic renal insufficiency Hyperlipidemia Diabetes mellitus Ischemic cardiomyopathy HTN (hypertension) CAD (coronary artery disease) Surgical History H/O colonoscopy Hx of cholecystectomy S/P CABG x 4 Household Members: Other Housing: Apartment Alcohol intake: former Patient Tobacco Use Status: Never used Tobacco Smoked in Last 30 Days: No Second Hand Smoke Exposure: No Use of substances other than those prescribed or required for medical reasons: No Currently Displaying Signs/Symptoms of Drug Intoxication Withdrawal: No Any prior treatment program specific to substance use: No Have you been hit, kicked, punched, or otherwise hurt by someone within the past year? If so, by whom?: No Do you feel safe in your current relationship?: No Current Relationship Is there a partner from a previous relationship who is making you feel unsafe now?: No Are you made to feel afraid or neglected: No Advance Directives: Yes Advance Directives Information Provided: Yes Advance Directives on File: No Advance Directives Date on File: 05/09/23 Do you have thoughts of harming others: None Do you have a plan to hurt others: No Plan Nutrition Risks: No Nutritional Risk Meds Allergies Allergy/AdvReac Type Severity Reaction Status Date / Time No Known Allergies Allergy Verified 11/26/21 18:03 Home Medications Medication Instructions Recorded Confirmed Last Taken Type amlodipine 10 mg tablet 10 mg PO BEDTIME 03/08/21 05/09/23 Unknown History aspirin 81 mg tablet,delayed 81 mg PO DAILY 03/08/21 05/09/23 Unknown History release carvedilol 25 mg tablet 25 mg PO BID 03/08/21 05/09/23 Unknown History empagliflozin 25 mg tablet 25 mg PO DAILY 03/08/21 05/09/23 Unknown History (Jardiance) ezetimibe 10 mg tablet 10 mg PO BEDTIME 03/08/21 05/09/23 Unknown History hydralazine 10 mg tablet 10 mg PO TID 03/08/21 05/09/23 Unknown History lisinopril 40 mg tablet 40 mg PO DAILY 03/08/21 05/09/23 Unknown History metformin 1,000 mg tablet 1,000 mg PO BIDWM 03/08/21 05/09/23 Unknown History mirtazapine 15 mg tablet 7.5 mg PO BEDTIME 03/08/21 05/09/23 Unknown History pantoprazole 40 mg tablet,delayed 40 mg PO DAILY@0630 03/08/21 05/09/23 Unknown History release spironolactone 25 mg tablet 25 mg PO DAILY 03/08/21 05/09/23 Unknown History dulaglutide 0.75 mg/0.5 mL 0.75 mg subcut WE 03/07/22 05/09/23 05/07/23 History subcutaneous pen injector (Trulicity) alirocumab 75 mg/mL subcutaneous 75 mg subcut Q14D 04/24/23 05/09/23 05/02/23 History pen injector (Praluent Pen) trazodone 50 mg tablet 25 mg PO BEDTIME PRN insomnia 05/09/23 05/09/23 Unknown History Physical Exam Vital Signs and Narrative: Vital Signs: Last Vital Signs Temp 97.9 F 05/09/23 16:00 Pulse 80 05/09/23 16:00 Resp 16 05/09/23 16:00 BP 134/91 H 05/09/23 16:00 Pulse Ox 98 05/09/23 16:00 O2 Del Method Room Air 05/09/23 16:00 BMI result Body Mass Index 23.2 Constitutional - Awake and Alert, No apparent distress Eyes - PERRLA, EOMI Cardiovascular - S1S2, RRR, No edema Respiratory - Normal lung expansion, Normal respiratory effort, No respiratory distress, bibasilar crackles Gastrointestinal - NT / ND; +BS; No rebound or guarding Extremities - no calf tenderness bilaterally, no swelling Skin - Warm/Dry Neurological - Alert & oriented x3 Psychological - Appropriate affect Results Labs 05/10/23 05:01 05/10/23 05:01 Labs: Laboratory Results - last 24 hr 05/09/23 05/09/23 05/09/23 13:05 13:06 13:51 MCV 87.5 MCH 27.9 MCHC 32.0 RDW 13.5 Plt Count 195 MPV 10.9 Immature Gran % (Auto) 0.3 Neut % (Auto) 69.7 Lymph % (Auto) 16.1 L [place] % (Auto) 8.9 Eos % (Auto) 4.5 H Baso % (Auto) 0.5 Lymph # (Auto) 1.0 L [place] # (Auto) 0.6 Eos # (Auto) 0.3 Baso # (Auto) 0.0 Abs Immat Gran (auto) 0.02 Absolute Neuts (auto) 4.3 Absolute Nucleated RBC 0.000 Nucleated RBC % (auto) 0.0 PT 12.4 INR 1.0 D-Dimer High Sensitivty 368 Anion Gap 13 Estim Creat Clear Calc 44.7 Estimated GFR 47 Random Glucose 146 H Calcium 9.6 D Total Bilirubin 0.4 AST 27 ALT 30 Alkaline Phosphatase 78 B-Natriuretic Peptide 2000 H Total Protein 7.5 Albumin 3.7 COVID-19 (MARCELLUS) Negative COVID-19 Clin Com See Note Influenza Type A (TASHA) Negative Influenza Type B (TSAHA) Negative Influenza A & B Note See Note Imaging Radiologist's Impressions: Impressions Chest X-Ray 05/09/23 13:15 IMPRESSION: Small bilateral pleural effusions with associated bibasilar atelectasis. Consolidation in the medial lung bases (this was pneumonia or aspiration) is possible. Borderline cardiomegaly. No pulmonary edema. Assessment and Plan (1) CHF exacerbation: Status: Acute Plan 72-year-old male with CKD stage 3, [id number] type 2 diabetes, hyperlipidemia, cardiomyopathy, coronary artery disease s/p CABG, hypertension, GERD, heart failure reduced ejection fraction admitted for acute CHF exacerbation. #Acute CHF exacerbation -BNP 1999, CXR with bilateral pleural effusions, no edema -Last echo 02/2023 showed reduced LV systolic function with EF 40-45% -40 mg IV Lasix daily -strict I&O -cardiac diet -follow BMP, BNP -continue spironolactone, jardiance #Elevated troponins- likely demand 2/2 volume overload -Initial 35, repeat 40 -EKG without acute ischemic changes, no anginal chest pain #CAD/ischemic cardiomyopathy/hld -Continue Jardiance, Zetia, carvedilol, statin, aspirin # hypertension -blood pressure reasonably controlled -continue amlodipine, carvedilol, hydralazine, lisinopril, spironolactone # wad-soltwdm-anzzewcyu type 2 diabetes -POC glucose -diabetic diet -Humalog on sliding scale # CKD stage 3 -creat slightly elevated due to above, no true sheri -follow bmp #GERD -continue ppi DVT prophylaxis-Lovenox Full code Patient requires inpatient stay at least 2 midnights for management of acute CHF exacerbation requiring IV diuresis, close monitoring of volume status, and close monitoring of renal function electrolyte levels to prevent cardiopulmonary decompensation Quality Stroke Does the patient have a stroke diagnosis?: No VTE Prior VTE?: No VTE Risk Level:: Medical - moderate - high VTE Device Contraindication: Treatment Not Indicated VTE Drug Contraindication: N/A - Med Ordered
--- NOTE | 2023-05-09 17:19 | PHA.MEDREC ---
Pharmacy Consult ? Medication Reconciliation Pharmacy has completed the medication reconciliation.PT AND FAMILY AT BEDSIDE WERE UNABLE TO CONFIRM ANY MEDICATIONS BUT STATES THAT HE USES [facility] AND ONLY TAKES WHAT THEY GIVE HIM. CONFIRMED DATE OF LAST INJECTION ON PRALUENT AND TRULICITY.
[2023-05-09] MEDS: Enoxaparin Sodium 40 MG/0.4 ML SYRINGE SUBCUT (18:11)
--- NOTE | 2023-05-09 18:12 | PC.NURSE ---
Denies pain, ate well for dinner, reports feeling better
--- NOTE | 2023-05-09 19:51 | PC.NURSE ---
this rn assumed care of pt. pt resting in stretcher comfortably. no acute distress. report given to S3 nurse. no questions at this time.
[2023-05-09 20:15] LABS: Glucose, Whole Blood 166 mg/dL (60-115)
[2023-05-09 20:35] VITALS: BMI 24.1
[2023-05-09] MEDS: Insulin Lispro 100 UNIT/ML 3 ML VIAL SUBCUT (21:39)
[2023-05-09] MEDS: 0.9 % Sodium Chloride Flush 3 ML SYRINGE IVFLUSH (21:40)
[2023-05-10 03:41] VITALS: BP 140/90; PULSE 84; RESP 18; TEMP 36.7; O2SAT 95
[2023-05-10 05:29] LABS: MANUAL DIFF FLAG NO
[2023-05-10 05:37] LABS: Basophils Absolute Auto 0.1 X10*3/uL (0.0-0.2); Basophils Percent Auto 0.7 % (0-2); Eosinophils Absolute Auto 0.4 X10*3/uL (0.0-0.4); Eosinophils Percent Auto 6.1 % (0-4); Hematocrit 40.9 % (42.0-52.0); Hemoglobin 13.2 g/dl (14.0-18.0); Imm Gran Abs Auto 0.03 X10*3/uL (0.00-0.03); Imm Gran Pct Auto 0.4 % (0.0-0.4); Lymphocytes Absolute Auto 1.2 X10*3/uL (1.2-4.9); Lymphocytes Percent Auto 17.4 % (20-40); Mean Corpuscular HGB Conc 32.3 g/dl (31.0-36.0); Mean Corpuscular Hemoglobin 28.5 pg (27.0-33.0); Mean Corpuscular Volume 88.3 fL (80.0-98.0); Mean Platelet Volume 11.2 fL (9.4-12.4); Monocytes Absolute Auto 0.6 X10*3/uL (0.1-1.2); Monocytes Percent Auto 8.1 % (2-11); Neutrophils Absolute Auto 4.6 x10*3/uL (2.0-8.3); Neutrophils Percent Auto 67.3 % (45-73); Platelet Count 195 X10*3/uL (160-400); Red Blood Count 4.63 X10*6/uL (4.60-5.80); Red Cell Distribution Width 13.6 % (11.0-16.0); White Blood Count 6.8 X10*3/uL (4.8-10.8)
[2023-05-10 05:55] LABS: B Type Natriuretic Peptide 2270 pg/mL (<100)
[2023-05-10 06:00] LABS: Anion Gap 12 (12-20); Blood Urea Nitrogen 30 mg/dL (9-16); Carbon Dioxide 26 mmol/L (22-29); Chloride 107 mmol/L (96-108); Creatinine Clr Calc Pharmacy 37.3; Estimated Glomerular Filt Rate 38; Glucose Random 83 mg/dL (60-115); Potassium 3.4 mmol/L (3.3-5.1); Sodium 142 mmol/L (135-145)
[2023-05-10 07:20] VITALS: BP 131/90; PULSE 82; RESP 17; TEMP 36.2; O2SAT 93
[2023-05-10 07:38] LABS: Glucose, Whole Blood 92 mg/dL (60-115)
--- NOTE | 2023-05-10 07:54 | HO.PM.IMPN ---
Subjective Subjective Date of Service: 05/10/23 Interval History: f/u on heart failure he feels better, Cr is slightly up Physical Exam Vital Signs: Vital Signs: Last Vital Signs Temp 97.1 F 05/10/23 07:20 Pulse 82 05/10/23 07:20 Resp 17 05/10/23 07:20 BP 131/90 H 05/10/23 07:20 Pulse Ox 93 05/10/23 07:20 O2 Del Method Room Air 05/10/23 07:20 BMI result Body Mass Index 24.1 Const: Other: Constitutional - Awake and Alert, No apparent distress Eyes - PERRLA, EOMI Cardiovascular - S1S2, RRR, No edema Respiratory - Normal lung expansion, Normal respiratory effort, No respiratory distress, no rales Gastrointestinal - NT / ND; +BS; No rebound or guarding Extremities - no calf tenderness bilaterally, no swelling Skin - Warm/Dry Neurological - Alert & oriented x3 Psychological - Appropriate affect Objective Data Active Medications Acetaminophen (Acetaminophen 325 Mg Tablet) 650 mg PO Q6H PRN PRN Reason: Pain, Mild (Pain Scale 1-3) Dextrose (Dextrose 50 % 25 Gm/50 Ml Syringe) 25 gm IVPUSH Q15M PRN; Protocol PRN Reason: per Hypoglycemia Standing Ord. Docusate Sodium (Docusate Sodium 100 Mg Capsule) 100 mg PO DAILY PRN PRN Reason: Constipation Enoxaparin Sodium (Enoxaparin Sodium 40 Mg/0.4 Ml Syringe) 40 mg SUBCUT Q24H [facility] Last Admin: 05/09/23 18:11 Dose: 40 mg Documented By: GIUSEPPE Furosemide (Furosemide 40 Mg/4 Ml Vial) 40 mg IVPUSH DAILY [facility]; Protocol Glucose (Glucose Gel 15 Gm Gel..Gram.) 15 gm PO Q15M PRN; Protocol PRN Reason: per Hypoglycemia Standing Ord. Insulin Human Lispro (Insulin Lispro 100 Unit/Ml 3 Ml Vial) 0 unit SUBCUT QIDACHS [facility]; Protocol Last Admin: 05/10/23 07:41 Dose: Not Given Documented By: MAJO Non-Admin Reason: No Insulin Coverage Ondansetron HCl (Ondansetron Hcl 4 Mg/2 Ml Vial) 4 mg IVPUSH Q8H PRN PRN Reason: Nausea and Vomiting Sodium Chloride (0.9 % Sodium Chloride Flush 3 Ml Syringe) 3 ml IVFLUSH QSHIFT [facility] Last Admin: 05/09/23 21:40 Dose: 3 ml Documented By: VEENA Labs 05/10/23 05:01 05/10/23 05:01 Labs: Laboratory Results - last 24 hr 05/09/23 05/09/23 05/09/23 13:05 13:06 13:51 MCV 87.5 MCH 27.9 MCHC 32.0 RDW 13.5 Plt Count 195 MPV 10.9 Immature Gran % (Auto) 0.3 Neut % (Auto) 69.7 Lymph % (Auto) 16.1 L [place] % (Auto) 8.9 Eos % (Auto) 4.5 H Baso % (Auto) 0.5 Lymph # (Auto) 1.0 L [place] # (Auto) 0.6 Eos # (Auto) 0.3 Baso # (Auto) 0.0 Abs Immat Gran (auto) 0.02 Absolute Neuts (auto) 4.3 Absolute Nucleated RBC 0.000 Nucleated RBC % (auto) 0.0 PT 12.4 INR 1.0 D-Dimer High Sensitivty 368 Anion Gap 13 Estim Creat Clear Calc 44.7 Estimated GFR 47 POC Glucose Random Glucose 146 H Calcium 9.6 D Total Bilirubin 0.4 AST 27 ALT 30 Alkaline Phosphatase 78 B-Natriuretic Peptide 2000 H Total Protein 7.5 Albumin 3.7 COVID-19 (MARCELLUS) Negative COVID-19 Clin Com See Note Influenza Type A (TASHA) Negative Influenza Type B (TASHA) Negative Influenza A & B Note See Note 05/09/23 05/10/23 05/10/23 20:11 05:01 07:22 MCV 88.3 MCH 28.5 MCHC 32.3 RDW 13.6 Plt Count 195 MPV 11.2 Immature Gran % (Auto) 0.4 Neut % (Auto) 67.3 Lymph % (Auto) 17.4 L [place] % (Auto) 8.1 Eos % (Auto) 6.1 H Baso % (Auto) 0.7 Lymph # (Auto) 1.2 [place] # (Auto) 0.6 Eos # (Auto) 0.4 Baso # (Auto) 0.1 Abs Immat Gran (auto) 0.03 Absolute Neuts (auto) 4.6 Absolute Nucleated RBC 0.000 Nucleated RBC % (auto) 0.0 PT INR D-Dimer High Sensitivty Anion Gap 12 Estim Creat Clear Calc 37.3 Estimated GFR 38 POC Glucose 166 H 92 Random Glucose 83 Calcium 9.0 D Total Bilirubin AST ALT Alkaline Phosphatase B-Natriuretic Peptide 2270 H Total Protein Albumin COVID-19 (MARCELLUS) COVID-19 Clin Com Influenza Type A (TASHA) Influenza Type B (TASHA) Influenza A & B Note Assessment and Plan (1) CHF exacerbation: Status: Acute (2) Congestive heart failure: Status: Acute Plan 72-year-old male with CKD stage 3, [id number] type 2 diabetes, hyperlipidemia, cardiomyopathy, coronary artery disease s/p CABG, hypertension, GERD, heart failure reduced ejection fraction admitted for acute CHF exacerbation. #Acute Systolic CHF exacerbation, with EF 40-45% -DC IV Lasi, monitor I/O, weight and monitor BMP -continue spironolactone, jardiance #Elevated troponins- likely demand 2/2 volume overload -Initial 35, repeat 40 -EKG without acute ischemic changes, no anginal chest pain #CAD/ischemic cardiomyopathy/hld -Continue Jardiance, Zetia, carvedilol, statin, aspirin # hypertension -blood pressure reasonably controlled -continue amlodipine, carvedilol, hold hydralazine 10 tid, lisinopril 40, # qfc-uxcqkgi-tswcfvrwe type 2 diabetes -POC glucose -diabetic diet -Humalog on sliding scale -stop Metformin d/t priti/ckd # CKD stage 3, Cr slightly higher, monitor #GERD -continue ppi DVT prophylaxis-Lovenox Full code need for inpt: IV diuretic for chf and monitoring of PRITI, Quality Stroke Does the patient have a stroke diagnosis?: No VTE Prior VTE?: No VTE Risk Level:: Medical - moderate - high VTE Device Contraindication: Treatment Not Indicated VTE Drug Contraindication: N/A - Med Ordered
[2023-05-10] MEDS: Furosemide 40 MG/4 ML VIAL IVPUSH (07:58)
[2023-05-10] MEDS: 0.9 % Sodium Chloride Flush 3 ML SYRINGE IVFLUSH ×3 (07:59→21:06)
[2023-05-10] MEDS: Empagliflozin 25 MG TABLET PO (09:11)
[2023-05-10] MEDS: Aspirin Enteric Coated 81 MG TABLET.DR PO (09:11)
[2023-05-10] MEDS: carvediloL 25 MG TABLET PO ×2 (09:11→21:05)
[2023-05-10] MEDS: Spironolactone 25 MG TABLET PO (09:11)
[2023-05-10 11:20] LABS: Glucose, Whole Blood 117 mg/dL (60-115)
[2023-05-10 15:34] VITALS: BP 135/85; PULSE 79; RESP 17; TEMP 36.6; O2SAT 95
--- NOTE | 2023-05-10 15:53 | MHC.CM.PN ---
CM CALLED [facility] X 3 FOR ASSISTANCE MEETING WITH THIS PT CALLS WENT DIRECTLY TO MESSAGE LEFT X 1
[2023-05-10 16:28] LABS: Glucose, Whole Blood 179 mg/dL (60-115)
[2023-05-10] MEDS: Insulin Lispro 100 UNIT/ML 3 ML VIAL SUBCUT (17:01)
[2023-05-10] MEDS: Enoxaparin Sodium 40 MG/0.4 ML SYRINGE SUBCUT (17:01)
[2023-05-10 20:00] VITALS: BP 137/88; PULSE 80; RESP 18; TEMP 36.5; O2SAT 97
[2023-05-10 20:43] LABS: Glucose, Whole Blood 102 mg/dL (60-115)
[2023-05-10] MEDS: amLODIPine Besylate 10 MG TABLET PO (21:05)
[2023-05-10] MEDS: Ezetimibe 10 MG TABLET PO (21:05)
[2023-05-10] MEDS: Mirtazapine 7.5 MG TABLET PO (21:05)
[2023-05-10] MEDS: Atorvastatin Calcium 80 MG TABLET PO (21:06)
[2023-05-11 03:44] VITALS: BP 134/77; PULSE 75; RESP 18; TEMP 36.1; O2SAT 93
[2023-05-11] MEDS: Omeprazole 20 MG CAPSULE.DR PO (05:39)
[2023-05-11 05:57] LABS: Anion Gap 12 (12-20); Blood Urea Nitrogen 34 mg/dL (9-16); Calcium 8.9 mg/dL (8.4-10.2); Carbon Dioxide 27 mmol/L (22-29); Chloride 105 mmol/L (96-108); Creatinine Clr Calc Pharmacy 35.7; Estimated Glomerular Filt Rate 36; Glucose Random 103 mg/dL (60-115); Potassium 3.2 mmol/L (3.3-5.1); Sodium 141 mmol/L (135-145)
[2023-05-11 07:45] LABS: Glucose, Whole Blood 104 mg/dL (60-115)
[2023-05-11 07:48] VITALS: BP 139/94; PULSE 82; RESP 16; TEMP 36.6; O2SAT 96
[2023-05-11] MEDS: Empagliflozin 25 MG TABLET PO (08:06)
[2023-05-11] MEDS: carvediloL 25 MG TABLET PO (08:06)
[2023-05-11] MEDS: Spironolactone 25 MG TABLET PO (08:06)
[2023-05-11] MEDS: Aspirin Enteric Coated 81 MG TABLET.DR PO (08:06)
--- NOTE | 2023-05-11 08:07 | MHC.CM.PN ---
Addendum entered by Gloria Huitron 05/11/23 11:42: PT DISCHARGED HOME TODAY WITH NO SERVICES VIA PRIVATE TRANSPORT Original Note: Interview conducted w/Jordana (contact listed on file), and her friend Chidi who assisted her w/[employer] (spray gun repairer helper services did not come to the phone). Pt lives w/ at home. He has a shower chair and his drives him to get to his appointments. His PCP is at [facility]. His in-home services are provided through his insurance company; Jordana reports that he gets 24 hours per week. She indicates he has been functionally declining in his home recently; he may benefit from a PT eval for in-home PT. Please note: she was not however, able to confirm either way if he is in fact already on service w/a VNA forpreviously referenced in-home PT. At this time, D/C plan is return home via transport w/return to service through [facility] in-home services and potentially in-home PT. CM to follow.
[2023-05-11] MEDS: 0.9 % Sodium Chloride Flush 3 ML SYRINGE IVFLUSH (08:08)
--- NOTE | 2023-05-11 08:50 | PM.DS ---
DS: Providers Provider Date of Service: 05/11/23 Date of admission: 05/09/23 16:31 Primary care physician: Michelle Zhang MD DS: Diagnosis Discharge Diagnosis (1) CHF exacerbation: Status: Acute (2) Congestive heart failure: Status: Acute DS: Summary Time Attestation Discharge coordination time: Greater than 30 minutes Quality: Safe Use of Opioids Does Pt have an Active Cancer Diagnosis on the Problem List?: No Quality: Stroke Does the patient have a stroke diagnosis?: No Physical Exam Vital Signs: Vital Signs: Last Vital Signs Temp 97.9 F 05/11/23 07:48 Pulse 82 05/11/23 07:48 Resp 16 05/11/23 07:48 BP 139/94 H 05/11/23 07:48 Pulse Ox 96 05/11/23 07:48 O2 Del Method Room Air 05/11/23 07:48 BMI result Body Mass Index 24.1 DS: Data Data Completed and Pending Labs on day of discharge: Laboratory Results - last 24 hr 05/10/23 05/10/23 05/10/23 11:13 16:21 20:14 Hold Purple Top Sodium Potassium Chloride Carbon Dioxide Anion Gap BUN Creatinine Estim Creat Clear Calc Estimated GFR POC Glucose 117 H 179 H 102 Random Glucose Calcium 05/11/23 05/11/23 05:21 07:39 Hold Purple Top SEE NOTE Sodium 141 Potassium 3.2 L Chloride 105 Carbon Dioxide 27 Anion Gap 12 BUN 34 H Creatinine 1.84 H Estim Creat Clear Calc 35.7 Estimated GFR 36 POC Glucose 104 Random Glucose 103 Calcium 8.9 Discharge Plan Discharge Anticipated Discharge Date/Time: 05/11/23 08:51 Patient Disposition: Home, Self-Care Discharge Diagnosis: CHF exacerbation Referrals: Michelle Zhang MD [Primary Care Provider] - 1 Week Discharge Medications: Continued atorvastatin 80 mg tablet 80 mg PO BEDTIME Qty: 90 3RF acetaminophen 500 mg tablet 1,000 mg PO Q6H PRN (Reason: pain) Qty: 30 0RF Praluent Pen 75 mg/mL Pen Injector 75 mg SUBCUT Q14D trazodone 50 mg tablet 25 mg PO BEDTIME PRN (Reason: insomnia) amlodipine 10 mg tablet 10 mg PO BEDTIME aspirin 81 mg tablet,delayed release (DR/EC) 81 mg PO DAILY ezetimibe 10 mg tablet 10 mg PO BEDTIME Jardiance 25 mg tablet 25 mg PO DAILY pantoprazole 40 mg tablet,delayed release (DR/EC) 40 mg PO DAILY@0630 mirtazapine 15 mg tablet 7.5 mg PO BEDTIME spironolactone 25 mg tablet 25 mg PO DAILY carvedilol 25 mg tablet 25 mg PO BID Trulicity 0.75 mg/0.5 mL pen injector 0.75 mg subcut WE Discontinued hydralazine 10 mg tablet 10 mg PO TID lisinopril 40 mg tablet 40 mg PO DAILY metformin 1,000 mg tablet 1,000 mg PO BIDWM Diet: Advance to usual diet Activity on Discharge: As tolerated Stand Alone Forms: Patient Portal Discharge page Care Plan Goals: recovery from heart failure Health Concerns: chronic heart failure Plan of Treatment: continue usual medication hold Lisinopril due to renal failure and blood pressuer on lower side hold Metformin due to renal failure Assessment: see above
[2023-05-11 10:34] VITALS: BP 125/80; PULSE 77; RESP 16; TEMP 36.8; O2SAT 93
[2023-05-11] MEDS: hydrALAZINE HCl 10 MG TABLET PO (10:42)
[2023-05-11] MEDS: Potassium Chloride Packet 20 MEQ PACKET 40 MEQ PO (10:42)
[2023-05-11 11:14] LABS: Glucose, Whole Blood 165 mg/dL (60-115)
[2023-05-11] MEDS: Insulin Lispro 100 UNIT/ML 3 ML VIAL SUBCUT (11:36)
--- NOTE | 2023-05-11 12:11 | W.MHC.F2F ---
Service Date Service Date: 05/11/23 Encounter Date of encounter: 05/11/23 Reasons for Services Signs and symptoms assessed: heart failure , hortness of breath Reason for assisted: medication management and teach disease management Homebound: Leaving the home is medically contraindicated at this time without the asist of a device and/or another person due th the listed conditions above and below. Reason homebound: weakness related to hospital stay Homebound supporting statement: homebound due to weakness related to hospitalization and thefore needs the assistance of another person Certification: Based on the above findings, I certify that this patient is confined to the home and needs intermittent assisted care, physical therapy and/or speech therapy, or continues to need occupational therapy. The patient is under my care, and I have initiated the establishment of the plan of care. The patient will be followed by a physician who will periodically review the plan of care. Time Spent With Patient Time: Total time managing care of this patient today ____ minutes.
== END 2023-05-11 13:20 | disposition home health service (06) | DRG 291 ==
LOC: HO.ED 15:01 → HO.EDOVER 16:44 → HO.S3 19:16
PROVIDERS: Registered Nurse Emergency; Admitting Provider Physician Assistant; Emergency Provider Emergency Medicine; PCP Family Medicine; Visit Provider Internal Medicine
DX: I13.0 Hypertensive heart and chronic kidney disease with heart failure and stage 1 through stage 4 chronic kidney disease, or unspecified chronic kidney disease (principal); I50.23 Acute on chronic systolic (congestive) heart failure; E11.22 Type 2 diabetes mellitus with diabetic chronic kidney disease; N18.30 Chronic kidney disease, stage 3 unspecified; K21.9 Gastro-esophageal reflux disease without esophagitis; E78.5 Hyperlipidemia, unspecified; I25.5 Ischemic cardiomyopathy; I25.10 Atherosclerotic heart disease of native coronary artery without angina pectoris; Z20.822 Contact with and (suspected) exposure to COVID-19; Z95.1 Presence of aortocoronary bypass graft; Z79.4 Long term (current) use of insulin; Z79.899 Other long term (current) drug therapy
CPT/HCPCS: 36415; 71046; 80048; 80053; 82947; 83880; 84484; 85025; 85379; 85610; 87502; 87635; 93005; 99285; J1650; J1940

== ENCOUNTER → 2023-05-09 16:31 | Outpatient (BNV) | payer OTHER, SELFPAY | PROVIDERS: Admitting Provider Physician Assistant; Emergency Provider Emergency Medicine; PCP Family Medicine; Visit Provider Physician Assistant | DX: I50.21 Acute systolic (congestive) heart failure (principal) | CPT/HCPCS: 99223; 99232; 99239; G0180 ==

== ENCOUNTER 2023-05-16 22:08 | Emergency (ER) | payer OTHER, SELFPAY ==
--- NOTE | ~2023-05-16 | XR_ITS ---
EXAMINATION: XR CHEST CLINICAL INFORMATION: Shortness of breath COMPARISON: 05/09/2023 TECHNIQUE: Frontal view of the chest was obtained. FINDINGS: The lungs are mildly hypoinflated. Interval improvement in right basilar aeration compared to prior. No new focal consolidation is seen. Trace pleural effusions cannot be excluded. No evidence of pneumothorax or overt pulmonary edema. Cardiac silhouette appears near the upper limits of normal in size. Sternal wires are present. No acute osseous findings are seen. XR/XR chest 1V IMPRESSION: Interval improvement in right basilar aeration compared to prior. No new consolidation.
[2023-05-16 22:49] VITALS: BP 134/83; PULSE 93; RESP 18; TEMP 37.5; O2SAT 92; BMI 22.3
[2023-05-16 23:04] LABS: Hematocrit 42.6 % (42.0-52.0); Hemoglobin 13.9 g/dl (14.0-18.0); Mean Corpuscular HGB Conc 32.6 g/dl (31.0-36.0); Mean Corpuscular Hemoglobin 28.1 pg (27.0-33.0); Mean Corpuscular Volume 86.1 fL (80.0-98.0); Mean Platelet Volume 11.3 fL (9.4-12.4); Platelet Count 175 X10*3/uL (160-400); Red Blood Count 4.95 X10*6/uL (4.60-5.80); Red Cell Distribution Width 13.8 % (11.0-16.0); White Blood Count 7.6 X10*3/uL (4.8-10.8)
[2023-05-16 23:18] LABS: Alanine Aminotransferase 34 U/L (0-40); Albumin Level 3.6 g/dL (3.5-5.0); Alkaline Phosphatase 87 U/L (39-117); Anion Gap 12 (12-20); Aspartate Amino Transferase 31 U/L (5-37); Bilirubin Total 0.4 mg/dL (0.0-1.0); Blood Urea Nitrogen 40 mg/dL (9-16); Calcium 8.7 mg/dL (8.4-10.2); Carbon Dioxide 23 mmol/L (22-29); Chloride 108 mmol/L (96-108); Creatinine Clr Calc Pharmacy 37.2; Estimated Glomerular Filt Rate 39; Glucose Random 146 mg/dL (60-115); Potassium 4.2 mmol/L (3.3-5.1); Sodium 139 mmol/L (135-145)
[2023-05-16 23:40] LABS: Influenza A PCR NEGATIVE (Negative); Influenza B PCR NEGATIVE (Negative); Resp Syncy Virus RNA Qual PCR NEGATIVE (Negative); SARS COV2 PCR INHOUSE POSITIVE (Negative)
[2023-05-17 02:12] VITALS: BP 147/93; PULSE 94; RESP 15; O2SAT 97
--- NOTE | 2023-05-17 02:47 | ED.GENADULT ---
HPI - General Adult General Chief complaint: General Medical Stated complaint: knee pain bilateral Time Seen by Provider: 05/17/23 02:37 Source: patient and family Limitations: no limitations History of Present Illness HPI narrative: Patient is 72 years old with history of CKD diabetes hyperlipidemia cardiomyopathy coronary disease hypertension heart failure with reduced ejection fraction admitted here on 05/09 discharged 05/11 for CHF exacerbation, patient was doing much better the last 2 days and started coughing and feeling more short of breath. Patient's was positive for COVID 4 days ago no fever no chills patient has diffuse body aches and feels short of breath when he ambulates but saturating 99% at room air when resting no chest pain or palpitation no increased leg swelling Related Data Home Medications Medication Instructions Recorded Confirmed amlodipine 10 mg tablet 10 mg PO BEDTIME 03/08/21 05/09/23 aspirin 81 mg tablet,delayed 81 mg PO DAILY 03/08/21 05/09/23 release carvedilol 25 mg tablet 25 mg PO BID 03/08/21 05/09/23 empagliflozin 25 mg tablet 25 mg PO DAILY 03/08/21 05/09/23 (Jardiance) ezetimibe 10 mg tablet 10 mg PO BEDTIME 03/08/21 05/09/23 hydralazine 10 mg tablet 10 mg PO TID 03/08/21 05/09/23 mirtazapine 15 mg tablet 7.5 mg PO BEDTIME 03/08/21 05/09/23 pantoprazole 40 mg tablet,delayed 40 mg PO DAILY@0630 03/08/21 05/09/23 release spironolactone 25 mg tablet 25 mg PO DAILY 03/08/21 05/09/23 dulaglutide 0.75 mg/0.5 mL 0.75 mg subcut WE 03/07/22 05/09/23 subcutaneous pen injector (Trulicity) alirocumab 75 mg/mL subcutaneous 75 mg subcut Q14D 04/24/23 05/09/23 pen injector (Praluent Pen) trazodone 50 mg tablet 25 mg PO BEDTIME PRN insomnia 05/09/23 05/09/23 Previous Rx's Medication Instructions Recorded acetaminophen 500 mg tablet 1,000 mg (2 x 500 mg) PO Q6H PRN 11/14/20 pain #30 tabs atorvastatin 80 mg tablet 80 mg PO BEDTIME #90 tabs 09/23/22 furosemide 20 mg tablet (Lasix) 20 mg PO MOWEFR #30 tabs 05/11/23 insulin lispro 100 unit/mL 0 sliding scale dose subcut 05/11/23 subcutaneous pen (Humalog Yolanda MARSCHS #15 mL (U-100) Insulin) pen needle, diabetic 32 gauge x #100 ea 05/11/23 1/4 benzonatate 200 mg capsule 200 mg PO TID PRN cough #30 caps 05/17/23 Allergies Allergy/AdvReac Type Severity Reaction Status Date / Time No Known Allergies Allergy Verified 11/26/21 18:03 Review of Systems Review of Systems: Yes all other systems are reviewed and are negative [facility] Past Medical History Medical History Renal failure GERD (gastroesophageal reflux disease) Chronic renal insufficiency Hyperlipidemia Diabetes mellitus Ischemic cardiomyopathy HTN (hypertension) CAD (coronary artery disease) Surgical History H/O colonoscopy Hx of cholecystectomy S/P CABG x 4 Social History Social History Household Members: Other Housing: Apartment Alcohol intake: former Patient Tobacco Use Status: Never used Tobacco Second Hand Smoke Exposure: No Advance Directives: Yes Advance Directives on File: Yes Advance Directives Date on File: 05/09/23 service: No Physical Exam ED Vital Signs: Vital Signs - 24 hr 05/16/23 22:49 05/17/23 02:12 05/17/23 04:08 Temperature 99.5 F 99.1 F Pulse Rate 93 94 92 Respiratory Rate 18 15 20 Blood Pressure 134/83 147/93 H 133/81 Pulse Oximetry 92 97 97 Oxygen Delivery Method Room Air Room Air Room Air 05/17/23 06:01 Temperature 98.9 F Pulse Rate 95 Respiratory Rate 20 Blood Pressure 144/94 H Pulse Oximetry 95 Oxygen Delivery Method Room Air BMI result Body Mass Index 22.3 Appearance: Alert. Oriented X3. No acute distress. Eyes: PERRLA, No Nystagmus ENT: Pharynx normal. Oral Mucosa moist Neck: Normal inspection. Neck supple. CVS: Normal heart rate and rhythm. Pulses normal. Respiratory: No respiratory distress. Equal air entry bilateral, b/l basal fine rales no wheezing/rhonchi Abdomen: Soft and nontender. Bowel sounds are present, no mass palpable, no CVA tenderness Skin: Skin warm and dry. Normal skin color. Normal skin turgor. Extremities: No lower extremity edema. No calf tenderness Neuro: Oriented X 3. No motor deficit. Medications Administered Discontinued Medications Generic Name Dose Route Start Last Admin Trade Name Freq PRN Reason Stop Dose Admin Guaifenesin/Codeine Phosphate 10 ml 05/17/23 05:43 05/17/23 06:43 Guaifen/Codeine Sf 200/20/10ml 10 Ml Liquid PO 05/17/23 05:44 10 ml ONCE ONE Administration Medical Decision Making Medical Decision Making [facility] Narrative: Patient workup showed COVID infection likely the cause for body aches and cough chest x-ray without any new infiltrate labs are stable saturating 99% discharge patient home on cough drops Differential Diagnosis Differential Diagnoses: The differential diagnosis associated with the presentation includes Pneumonia/CHF/COVID Admission/Observation Consideration of admission/observation: Escalation of care including admission/observation considered Lab Data [facility] Lab Attestation statement: I reviewed the patient's lab results. 05/16/23 22:59 05/16/23 22:59 Labs: Lab Results 05/16/23 Range/Units 22:59 WBC 7.6 (4.8-10.8) X10*3/uL RBC 4.95 (4.60-5.80) X10*6/uL Hgb 13.9 L (14.0-18.0) g/dl Hct 42.6 (42.0-52.0) % MCV 86.1 (80.0-98.0) fL MCH 28.1 (27.0-33.0) pg MCHC 32.6 (31.0-36.0) g/dl RDW 13.8 (11.0-16.0) % Plt Count 175 (160-400) X10*3/uL MPV 11.3 (9.4-12.4) fL Absolute Nucleated RBC 0.000 (0.0-0.012) X10*3/uL Nucleated RBC % (auto) 0.0 (0.0-0.2) /100WBC Sodium 139 (135-145) mmol/L Potassium 4.2 D (3.3-5.1) mmol/L Chloride 108 (96-108) mmol/L Carbon Dioxide 23 (22-29) mmol/L Anion Gap 12 (12-20) BUN 40 H (9-16) mg/dL Creatinine 1.71 H (0.5-1.4) mg/dL Estim Creat Clear Calc 37.2 Estimated GFR 39 Random Glucose 146 H (60-115) mg/dL Calcium 8.7 (8.4-10.2) mg/dL Total Bilirubin 0.4 (0.0-1.0) mg/dL AST 31 (5-37) U/L ALT 34 (0-40) U/L Alkaline Phosphatase 87 (39-117) U/L Troponin I High Sens 26.6 (<3.5-35.0) ng/L B-Natriuretic Peptide 1214 H (<100) pg/mL Total Protein 7.0 (6.5-8.0) g/dL Albumin 3.6 (3.5-5.0) g/dL Influenza Type A (PCR) NEGATIVE (Negative) Influenza Type B (PCR) NEGATIVE (Negative) RSV RNA Qual (PCR) NEGATIVE (Negative) SARS-CoV-2 RNA (RT-PCR) POSITIVE A (Negative) Independent Interpretation I performed an independent interpretation of an: Plain X-Ray Radiology Impression Discussion of test interpretation with radiology: I have reviewed the radiologist's reading. Discharge Plan Discharge Clinical Impression: COVID-19 Patient Disposition: Home, Self-Care Instructions: COVID-19 (Coronavirus Disease 2019) (ED) Additional Instructions: Drink plenty of fluids Cough drops as prescribed Report to ER if increased shortness of breath Check your oxygen level at home should be more than 92% at room air Beber mucho l?quido [place] para la tos seg?n lo prescrito Informe a urgencias si aumenta la dificultad para respirar. Verifique que connors nivel de ox?jo en casa debe ser superior al 92% al aire ambiente. Prescriptions: New benzonatate 200 mg capsule 200 mg PO TID PRN (Reason: cough) Qty: 30 0RF No Action atorvastatin 80 mg tablet 80 mg PO BEDTIME Qty: 90 3RF acetaminophen 500 mg tablet 1,000 mg PO Q6H PRN (Reason: pain) Qty: 30 0RF Praluent Pen 75 mg/mL Pen Injector 75 mg SUBCUT Q14D trazodone 50 mg tablet 25 mg PO BEDTIME PRN (Reason: insomnia) furosemide [Lasix] 20 mg tablet 20 mg PO MOWEFR Qty: 30 0RF insulin lispro [Humalog KwikPen Insulin] 100 unit/mL insulin pen 0 sliding scale dose SUBCUT QIDACHS Qty: 15 0RF Rx Instructions: Blood Sugar: <150 - 0 units 151-200 - 2 units 201-250 - 4 units 251-300 - 6 units 301-350 - 8 units >350 - 10 units (DME) pen needle, diabetic 32 gauge x 1/4 needle Qty: 100 0RF Rx Instructions: Use four times a day or as directed. amlodipine 10 mg tablet 10 mg PO BEDTIME aspirin 81 mg tablet,delayed release (DR/EC) 81 mg PO DAILY ezetimibe 10 mg tablet 10 mg PO BEDTIME hydralazine 10 mg tablet 10 mg PO TID Jardiance 25 mg tablet 25 mg PO DAILY pantoprazole 40 mg tablet,delayed release (DR/EC) 40 mg PO DAILY@0630 mirtazapine 15 mg tablet 7.5 mg PO BEDTIME spironolactone 25 mg tablet 25 mg PO DAILY carvedilol 25 mg tablet 25 mg PO BID Trulicity 0.75 mg/0.5 mL pen injector 0.75 mg subcut WE Interventions: ED Discharge Assessment Last Done: 05/17/23 06:47 Discharge Date/Time: 05/17/23 06:48
--- NOTE | 2023-05-17 02:51 | ECG_ITS ---
Test Reason : SOB Blood Pressure : / mmHG Vent. Rate : 088 BPM Atrial Rate : 088 BPM P-R Int : 172 ms QRS Dur : 108 ms QT Int : 376 ms P-R-T Axes : 019 -16 143 degrees QTc Int : 454 ms Normal sinus rhythm Possible Left atrial enlargement Left ventricular hypertrophy ( R in aVL , Sokolow-Desai , Venus product ) ST & T wave abnormality, consider lateral ischemia Abnormal ECG When compared with ECG of 09-MAY-2023 12:47, Previous ECG has undetermined rhythm, needs review Referred By: Dae Bishop Electronically Signed By:CATHLEEN BREWSTER MD
[2023-05-17 03:15] LABS: Troponin-I High Sensitivity 26.6 ng/L (<3.5-35.0)
[2023-05-17 03:20] LABS: B Type Natriuretic Peptide 1214 pg/mL (<100)
[2023-05-17 04:08] VITALS: BP 133/81; PULSE 92; RESP 20; TEMP 37.3; O2SAT 97
--- NOTE | 2023-05-17 04:09 | MHC.EDTECH ---
This tech assumed care of patient at 0300AM, EKG done per order and hourly rounds and vitals completed.
[2023-05-17 06:01] VITALS: BP 144/94; PULSE 95; RESP 20; TEMP 37.2; O2SAT 95
[2023-05-17] MEDS: guaiFEN/Codeine SF 200/20/10ML 10 ML LIQUID PO (06:43)
== END 2023-05-17 06:48 | disposition home or self-care (01) ==
PROVIDERS: Emergency Provider Internal Medicine
DX: U07.1 COVID-19 (principal); R06.02 Shortness of breath; E11.22 Type 2 diabetes mellitus with diabetic chronic kidney disease; I13.0 Hypertensive heart and chronic kidney disease with heart failure and stage 1 through stage 4 chronic kidney disease, or unspecified chronic kidney disease; N18.9 Chronic kidney disease, unspecified; I50.9 Heart failure, unspecified; Z79.82 Long term (current) use of aspirin; Z79.85 Long-term (current) use of injectable non-insulin antidiabetic drugs; Z79.899 Other long term (current) drug therapy; Z79.02 Long term (current) use of antithrombotics/antiplatelets
CPT/HCPCS: 0241U; 36415; 71045; 80053; 83880; 84484; 85027; 93005; 99283; 99284

== ENCOUNTER → 2023-05-17 02:51 | Outpatient (BNV) | payer OTHER, SELFPAY | PROVIDERS: Emergency Provider Internal Medicine; Visit Provider Internal Medicine Cardiovascular Disease | DX: I25.5 Ischemic cardiomyopathy (principal); R94.31 Abnormal electrocardiogram [ECG] [EKG] | CPT/HCPCS: 93010 ==

== ENCOUNTER 2023-05-28 10:11 | Outpatient (REF) | payer OTHER, SELFPAY ==
[2023-05-28 12:06] LABS: Anion Gap 10 (12-20); Blood Urea Nitrogen 31 mg/dL (9-16); Calcium 9.8 mg/dL (8.4-10.2); Carbon Dioxide 29 mmol/L (22-29); Chloride 103 mmol/L (96-108); Estimated Glomerular Filt Rate 51; Glucose Random 142 mg/dL (60-115); Potassium 4.4 mmol/L (3.3-5.1); Sodium 138 mmol/L (135-145)
== END 2023-05-28 10:12 | disposition home or self-care (01) ==
LOC: HO.HHCL 10:11
PROVIDERS: Internal Medicine; Visit Provider Family Medicine
DX: N19 Unspecified kidney failure (principal)
CPT/HCPCS: 36415; 80048

== ENCOUNTER 2023-06-02 08:44 | Outpatient (AMB) | payer OTHER, SELFPAY ==
[2023-06-02 09:01] VITALS: BP 120/62; PULSE 77; BMI 23.0
--- NOTE | 2023-06-02 09:01 | MHC.OFFVIS ---
Intake Vital Signs 06/02/23 09:01 Height 5 ft 9 in Weight 155 lb 10.342 oz BMI 23.0 BP 120/62 Blood Pressure Location Rt brachial Position Sitting Pulse 77 Pulse Source Pulse Oximeter Intake Visit Reasons: [facility] discharge f/u Faculty Head Required: Yes Faculty Head Language: Body Straightener Name: wilian zafar [id number] Allergies No Known Allergies Allergy (Verified 06/02/23 09:04) Medication List - Last Reconciled 06/02/23 by CIRO Zhang acetaminophen 1,000 mg (2 x 500 mg) PO Q6H PRN alirocumab (Praluent Pen) 75 mg subcut Q14D amlodipine 10 mg PO BEDTIME aspirin 81 mg PO DAILY atorvastatin 80 mg PO BEDTIME benzonatate 200 mg PO TID PRN carvedilol 25 mg PO BID dulaglutide (Trulicity) 0.75 mg subcut WE empagliflozin (Jardiance) 25 mg PO DAILY ezetimibe 10 mg PO BEDTIME furosemide (Lasix) 20 mg PO MOWEFR hydralazine 10 mg PO TID insulin lispro (Humalog KwikPen (U-100) Insulin) Blood Sugar: <150 - 0 units 151-200 - 2 units 201-250 - 4 units 251-300 - 6 units 301-350 - 8 units >350 - 10 units mirtazapine 7.5 mg PO BEDTIME pantoprazole 40 mg PO DAILY@0630 pen needle, diabetic Use four times a day or as directed. trazodone 25 mg PO BEDTIME PRN HPI [facility] discharge f/u HPI Meagan Mcclain is a 72-year-old male with past medical history of hypertension, hyperlipidemia, diabetes, CAD, coronary artery bypass grafting, ischemic cardiomyopathy who was recently admitted to [facility] with increased shortness of breath and treated for Congestive heart failure exacerbation. He was diuresed with IV Lasix. A few days after discharge he presented to the emergency room with cough and shortness of breath. He was found to have COVID and was treated conservatively as oxygen saturations 99%. He then went to [facility] for further treatment and was admitted for 3 days with COVID, Congestive heart failure, PRITI. Upon discharge lisinopril and Aldactone were discontinued. Today he reports that he is doing much better since his last hospital discharge. His breathing is back to normal. He denies any shortness of breath, PND, orthopnea or edema. No chest discomfort at rest or with activity. No heart palpitations, dizziness, presyncope, syncope, falls. Taking all meds as directed. is present. She expresses much concern that when he came to [facility] with COVID they just discharged him. He then required the [facility] admission where they treated him well. She is going to make a complaint. Certified infirmary attendant used. [facility] Medical History Renal failure GERD (gastroesophageal reflux disease) Chronic renal insufficiency Hyperlipidemia Diabetes mellitus Ischemic cardiomyopathy HTN (hypertension) CAD (coronary artery disease) Surgical History H/O colonoscopy Hx of cholecystectomy S/P CABG x 4 Social History Household Members: Other Housing: Apartment Alcohol intake: former Patient Tobacco Use Status: Never used Tobacco Second Hand Smoke Exposure: No Advance Directives Date on File: 05/09/23 service: No Review of Systems Const Details: As above All systems reviewed & are unremarkable except as noted in HPI and below ENT Denies dizziness Card Denies chest pain, Denies chest pain at rest, Denies chest pain with activity, Denies rapid heart rate, Denies pedal edema, Denies edema, Denies leg edema, Denies lightheadedness, Denies palpitations, Denies dyspnea, Denies dyspnea on exertion and Denies orthopnea Resp Denies cough, Denies dyspnea and Denies dyspnea on exertion GI Denies hematochezia and Denies change in stool character Musc Denies abnormal gait, Denies limited range of motion, Denies muscle cramps, Denies muscle weakness, Denies numbness, Denies radiating pain into limb, Denies stiffness and Denies tingling Neuro Denies abnormal gait, Denies dizziness, Denies numbness and Denies tingling Endo Denies palpitations Physical Exam Vital Signs: Last Vital Signs Pulse 77 06/02/23 09:01 BP 120/62 06/02/23 09:01 BMI result Body Mass Index 23.0 Const General: cooperative, healthy appearing, comfortable and no acute distress Orientation/consciousness: patient oriented x3 Neck Neck: Yes normal visual inspection and Yes no JVD Resp Effort & Inspection: normal respiratory effort Auscultation: clear to auscultation bilaterally, no crackles, no rales, no rhonchi and no wheezes Cardio Jugular venous distension: no JVD Rate: regular rate Rhythm: regular rhythm Heart sounds: S1 normal heart sound present, S2 normal heart sound present, no murmurs and no rubs Neuro General: patient oriented x3 Extrem General: Yes normal to inspection, No no pedal edema and No calf tenderness Psych Appearance: grossly normal Mental Status: mental status grossly normal Speech and movement: Normal speech and movement present Assessment & Plan Assessment & Plan (1) Ischemic cardiomyopathy: Comment: Severe LV systolic dysfunction prior to coronary artery bypass grafting. Post coronary artery bypass grafting normalized LV systolic function along with neurohormonal modulation Code(s): I25.5 - Ischemic cardiomyopathy Plan: History of ischemic cardiomyopathy. EF 40-45% 03/2021. He had been on neurohormonal modulation with carvedilol and lisinopril. Also on Aldactone, Jardiance. Echocardiogram done 02/28/2023 showed EF 40-45%, mid inferior, mid inferior lateral hypokinesis, basal inferior akinesis. No significant change from prior. He then had influenza vaccine and states he started with coughing and shortness of breath. A few weeks later he was admitted to [facility] with Congestive heart failure exacerbation. He believes flu vaccine started his decline in condition. BNP up to 2270. Diuresed with IV Lasix. Then readmitted to [facility] days later for COVID, Congestive heart failure, PRITI. On discharge his Aldactone and lisinopril were stopped. Currently on Lasix 20 mg Friday, Friday and Friday. Today he reports that his breathing is back to normal. He has no PND, orthopnea or edema. Fully recovered from COVID. No clinical signs of heart failure on examination. Continue current Lasix. Labs done 05/28/2023 shows potassium 4.4, creatinine 1.38. Creatinine had been as high as 2.0 at [facility]. Can stay off lisinopril at present. Will restart Aldactone to help prevent recurrent heart failure. Will check BMP in 1 week. Continue carvedilol, Jardiance. Signs and symptoms of heart failure reviewed. Cardiology follow-up in 4 months to reassess for heart failure. (2) CAD (coronary artery disease): Code(s): I25.10 - Atherosclerotic heart disease of [place] coronary artery without angina pectoris Plan: History of CAD with coronary artery bypass grafting in 2006. No reports of anginal sounding symptoms. Continue aspirin indefinitely. Continue high-dose atorvastatin and Zetia for good blood pressure control. Continue carvedilol for heart rate and blood pressure control. (3) HTN (hypertension): Code(s): I10 - Essential (primary) hypertension Plan: History of hypertension. Currently well controlled. Continue current meds without change. (4) CHF exacerbation: Code(s): I50.9 - Heart failure, unspecified Plan: As above (5) Hyperlipidemia: Code(s): E78.5 - Hyperlipidemia, unspecified Plan: [place] LDL goal less than 70 in patient with CAD. Last cholesterol in our system done 02/24/2021 showed LDL 68. Labs are followed by his PCP at [facility]. He continues on Zetia and high-dose atorvastatin. (6) Hospital discharge follow-up: Code(s): Z09 - Encounter for follow-up examination after completed treatment for conditions other than malignant neoplasm Plan: As above Plan Time spent on chart review, documentation, interview and assessment Orders: Orders Basic Metabolic Panel Today I25.5 - Ischemic cardiomyopathy B Type Natriuretic Peptide Today I25.5 - Ischemic cardiomyopathy Medications: New spironolactone (Aldactone) 25 mg PO DAILY 30 tabs 5RF Changed From furosemide (Lasix) 20 mg PO MOWEFR 30 tabs 0RF To furosemide (Lasix) Take 1 tablet 3 times weekly. Extra tablet if needed for increased shortness of breath or leg swelling 20 mg PO MOWEFR 18 tabs 5RF Coding Level of Care Code Est Pt Level 4 (06479) Diagnoses Ischemic cardiomyopathy I25.5 CAD (coronary artery disease) I25.10 HTN (hypertension) I10 CHF exacerbation I50.9 Hyperlipidemia E78.5 Hospital discharge follow-up Z09 Time Spent (min) 30
== END 2023-06-02 09:54 | disposition home or self-care (01) ==
PROVIDERS: Visit Provider Nurse Practitioner Family
DX: I25.5 Ischemic cardiomyopathy (principal); I25.10 Atherosclerotic heart disease of native coronary artery without angina pectoris; I10 Essential (primary) hypertension; I50.9 Heart failure, unspecified; E78.5 Hyperlipidemia, unspecified; Z09 Encounter for follow-up examination after completed treatment for conditions other than malignant neoplasm
CPT/HCPCS: 99214

== ENCOUNTER → 2023-06-02 08:44 | Outpatient (BNVA) | payer OTHER, SELFPAY | PROVIDERS: Visit Provider Nurse Practitioner Family | DX: Z09 Encounter for follow-up examination after completed treatment for conditions other than malignant neoplasm (principal); I25.5 Ischemic cardiomyopathy; I25.10 Atherosclerotic heart disease of native coronary artery without angina pectoris; I11.0 Hypertensive heart disease with heart failure; I50.9 Heart failure, unspecified; E78.5 Hyperlipidemia, unspecified | CPT/HCPCS: 99212 ==

== ENCOUNTER 2023-06-11 09:56 | Outpatient (REF) | payer OTHER, SELFPAY ==
[2023-06-11 11:42] LABS: B Type Natriuretic Peptide 1695 pg/mL (<100)
[2023-06-11 11:48] LABS: Anion Gap 11 (12-20); Blood Urea Nitrogen 25 mg/dL (9-16); Calcium 9.1 mg/dL (8.4-10.2); Carbon Dioxide 30 mmol/L (22-29); Chloride 105 mmol/L (96-108); Estimated Glomerular Filt Rate 48; Glucose Random 136 mg/dL (60-115); Potassium 3.8 mmol/L (3.3-5.1); Sodium 142 mmol/L (135-145)
== END 2023-06-11 09:57 | disposition home or self-care (01) ==
LOC: HO.LAB 09:56
PROVIDERS: Absent Provider Internal Medicine; PCP Family Medicine; Visit Provider Nurse Practitioner Family
DX: I25.5 Ischemic cardiomyopathy (principal); E11.21 Type 2 diabetes mellitus with diabetic nephropathy
CPT/HCPCS: 36415; 80048; 83880

== ENCOUNTER 2023-07-16 09:03 | Outpatient (REF) | payer OTHER, SELFPAY ==
[2023-07-16 11:08] LABS: Anion Gap 13 (12-20); Blood Urea Nitrogen 24 mg/dL (9-16); Calcium 9.7 mg/dL (8.4-10.2); Carbon Dioxide 27 mmol/L (22-29); Chloride 105 mmol/L (96-108); Estimated Glomerular Filt Rate 49; Glucose Random 218 mg/dL (60-115); Potassium 3.9 mmol/L (3.3-5.1); Sodium 141 mmol/L (135-145)
[2023-07-16 11:09] LABS: B Type Natriuretic Peptide 1964 pg/mL (<100)
== END 2023-07-16 09:04 | disposition home or self-care (01) ==
LOC: HO.LAB 09:03
PROVIDERS: PCP Family Medicine; Visit Provider Nurse Practitioner Family
DX: I25.5 Ischemic cardiomyopathy (principal)
CPT/HCPCS: 36415; 80048; 83880

== ENCOUNTER 2023-07-24 05:48 | Emergency (ER) | payer OTHER, SELFPAY ==
--- NOTE | ~2023-07-24 | XR_ITS ---
EXAMINATION: XR LUMBOSACRAL SPINE CLINICAL INFORMATION: Low back pain COMPARISON: Lumbar spine radiograph from 11/14/2020 TECHNIQUE: Three views of the lumbosacral spine. FINDINGS: 5 nonrib-bearing lumbar-type vertebral bodies no acute visible fracture or dislocation. Mild multilevel degenerative changes with disc space narrowing, osteophyte formation, and facet arthropathy. Vertebral body heights and disc spaces are maintained. Posterior elements are intact. Paraspinal soft tissues are unremarkable. Surgical clips right upper abdomen and pelvis. Bowel gas is unremarkable. XR/XR lumbar spine 2-3V IMPRESSION: 1. No acute visible fracture or dislocation. 2. Mild multilevel degenerative changes.
--- NOTE | ~2023-07-24 | XR_ITS ---
EXAMINATION: XR CHEST CLINICAL INFORMATION: Cough with pain COMPARISON: May 17, 2023 and May 09, 2023. TECHNIQUE: 2 views of the chest were obtained. FINDINGS: Patient has developed bilateral small pleural effusions with basilar disease. Left pleural effusion is larger than right. On prior study of May 09, 2023 a small pleural effusion was present. Patient status post median sternotomy and CABG. There is chronic elevation of the right hemidiaphragm. No evidence of pulmonary edema. No pneumothorax. Heart mildly enlarged. XR/XR chest 2V IMPRESSION: Small bilateral pleural effusions with some basilar opacification. No evidence of pulmonary edema.
[2023-07-24 05:53] VITALS: BP 163/119; PULSE 89; RESP 14; TEMP 36.4; O2SAT 97; BMI 22.6
--- NOTE | 2023-07-24 06:48 | ED_ITS ---
HPI - General Adult General Chief complaint: Dyspnea Stated complaint: gen med Time Seen by Provider: 07/24/23 06:48 Source: patient and foreign language interpreter Mode of arrival: ambulatory Limitations: language barrier History of Present Illness HPI narrative: Patient is a 72 year old assigned male at with a history of CABG, DM, HTN, and CAD presenting to the emergency department today with intermittent dyspnea, weakness, low back pain, and bilateral leg pain. Patient states that over the last 2 days he has been using his heater at home and when he turns it on, he is having some difficulty breathing. Patient states that he is also having generalized weakness, bilateral knee pain, and right sided low back pain. Patient denies any dizziness, lightheadedness, abdominal pain, nausea, vomiting, fever, chills, blurry vision, double vision, loss of vision, chest pain, night sweats, pain with urination, increased urinary frequency, increased urinary urgency, blood in his urine or stool, syncope or a near syncopal episode, recent trauma or falls, bowel incontinence, bladder incontinence, bowel retention, bladder retention, or any other complaints at this time. Onset (ago): day(s) (2) Severity: mild Severity scale (1-10): 3 Relieving factors: none Exacerbating factors: none Associated symptoms: shortness of breath (intermittently) Treatments prior to arrival: none Related Data Home Medications Medication Instructions Recorded Confirmed amlodipine 10 mg tablet 10 mg PO BEDTIME 03/08/21 06/02/23 aspirin 81 mg tablet,delayed 81 mg PO DAILY 03/08/21 06/02/23 release carvedilol 25 mg tablet 25 mg PO BID 03/08/21 06/02/23 empagliflozin 25 mg tablet 25 mg PO DAILY 03/08/21 06/02/23 (Jardiance) ezetimibe 10 mg tablet 10 mg PO BEDTIME 03/08/21 06/02/23 hydralazine 10 mg tablet 10 mg PO TID 03/08/21 06/02/23 mirtazapine 15 mg tablet 7.5 mg PO BEDTIME 03/08/21 06/02/23 pantoprazole 40 mg tablet,delayed 40 mg PO DAILY@0630 03/08/21 06/02/23 release dulaglutide 0.75 mg/0.5 mL 0.75 mg subcut WE 03/07/22 06/02/23 subcutaneous pen injector (Trulicity) alirocumab 75 mg/mL subcutaneous 75 mg subcut Q14D 04/24/23 06/02/23 pen injector (Praluent Pen) trazodone 50 mg tablet 25 mg PO BEDTIME PRN insomnia 05/09/23 06/02/23 Previous Rx's Medication Instructions Recorded acetaminophen 500 mg tablet 1,000 mg (2 x 500 mg) PO Q6H PRN 11/14/20 pain #30 tabs atorvastatin 80 mg tablet 80 mg PO BEDTIME #90 tabs 09/23/22 insulin lispro 100 unit/mL 0 sliding scale dose subcut 05/11/23 subcutaneous pen (Humalog KwikPen QIDACHS #15 mL (U-100) Insulin) pen needle, diabetic 32 gauge x #100 ea 05/11/23 1/ benzonatate 200 mg capsule 200 mg PO TID PRN cough #30 caps 05/17/23 spironolactone 25 mg tablet 25 mg PO DAILY #30 tabs 06/02/23 (Aldactone) furosemide 20 mg tablet (Lasix) 20 mg PO MOWEFR #25 tabs 06/17/23 Allergies Allergy/AdvReac Type Severity Reaction Status Date / Time No Known Allergies Allergy Verified 07/24/23 05:53 Review of Systems 2 Constitutional: Constitutional: Reports no additional constitutional complaints, Denies chills, Denies fever(s), Denies night sweats and Reports weakness Eyes: Eyes: Reports no additional eye complaints, Denies blurry vision, Denies change in vision, Denies diplopia, Denies eye discharge, Denies loss of vision and Denies eye pain ENT: Denies dizziness Cardiovascular: Cardiovascular: Reports no additional cardiovascular complaints, Denies chest pain, Denies lightheadedness, Denies Loss of Consciousness and Reports dyspnea (intermittent) Respiratory: Respiratory: Reports no additional respiratory complaints and Reports dyspnea (intermittent) Gastrointestinal: Gastrointestinal: Reports no additional gastrointestinal complaints, Denies abdominal pain, Denies melena, Denies hematochezia, Denies change in bowel habits and Denies change in stool character Genitourinary: Genitourinary: Reports no additional male genitourinary complaints, Denies hematuria, Denies oliguria, Denies difficulty urinating, Denies dysuria, Denies urinary frequency, Denies urinary hesitancy, Denies urinary incontinence and Denies urinary urgency Musculoskeletal: Musculoskeletal: Reports no additional musculoskeletal complaints, Reports back pain (right sided), Denies numbness and Denies tingling Comments: bilateral leg pain Neurologic: Denies dizziness, Denies loss of vision, Denies numbness, Denies tingling and Reports weakness Psychiatric: Psychiatric: Reports no additional psychiatric complaints Endocrine: Endocrine: Reports no additional endocrine complaints Hematologic/Lymphatic: Hematologic/Lymphatic: Reports no additional hematologic/lymphatic complaints Allergic/Immunologic: Allergic/Immunologic: Reports no additional allergic/immunologic complaints PMFSH Past Medical History Attestation statement: The following information was validated with the patient. Source: old records reviewed and nursing notes reviewed Medical History Renal failure GERD (gastroesophageal reflux disease) Chronic renal insufficiency Hyperlipidemia Diabetes mellitus Ischemic cardiomyopathy HTN (hypertension) CAD (coronary artery disease) Surgical History H/O colonoscopy Hx of cholecystectomy S/P CABG x 4 Social History Social History Household Members: Other Housing: Apartment Alcohol intake: former Patient Tobacco Use Status: Never used Tobacco Smoked in Last 30 Days: No Second Hand Smoke Exposure: No Use of substances other than those prescribed or required for medical reasons: No Advance Directives: No Advance Directives Information Provided: Yes Advance Directives Date on File: 05/09/23 service: No Physical Exam ED Vital Signs: Vital Signs - 24 hr 07/24/23 05:53 07/24/23 08:06 Temperature 97.5 F Pulse Rate 89 75 Respiratory Rate 14 16 Blood Pressure 163/119 H 111/75 Pulse Oximetry 97 95 Oxygen Delivery Method Room Air Room Air BMI result Body Mass Index 22.6 Const General: cooperative, no acute distress, alert and awake Nutritional Appearance: well nourished Orientation/consciousness: patient oriented x3 Limitations: no limitations HENMT Head: Yes normal to inspection and Yes atraumatic Ears: hearing grossly normal bilaterally and external ears normal General nose exam: Normal external nose present, no nasal discharge noted and no epistaxis Face and sinus: Yes normal facial exam, No abrasion and No laceration Mouth: Normal oral and palatal mucosa present, no drooling and no muffled voice Eyes General: appearance normal, both eyes and all related structures Periorbital: periorbital findings normal Eyelids: Yes eyelids normal Conjunctivae: conjunctivae normal Pupils: Equal, round and reactive pupils present EOM: EOMs intact bilaterally Neck Neck: Yes normal visual inspection, Yes full ROM and Yes no lymphadenopathy Chest Chest palpation & inspection: normal inspection of the chest Resp Effort & Inspection: normal respiratory effort and able to speak in complete sentences Auscultation: clear to auscultation bilaterally Cardio Rate: regular rate Rhythm: regular rhythm GI Inspection: Yes normal to inspection Neuro General: patient oriented x3 and moves all extremities Cranial nerves: Yes Equal, round and reactive pupils present Cognition (Neuro): normal cognition Motor exam (neuro): 5/5 motor strength present throughout Sensory Exam: Normal double simultaneous stimulation for sensation Coordination: [id number] test normal Extrem General: Yes normal to inspection, Yes full ROM and Yes capillary refill normal Psych Appearance: grossly normal Mental Status: mental status grossly normal Affect: normal affect Attitude: cooperative Thought process: Normal thought process present Thought content: Normal thought content present Insight: Good insight present (Psych) Medications Administered Discontinued Medications Generic Name Dose Route Start Last Admin Trade Name Freq PRN Reason Stop Dose Admin Sodium Chloride 1,000 mls @ 999 mls/hr 07/24/23 08:30 07/24/23 10:30 Ns IV 07/24/23 09:30 Infused .Q1H1M TIAN Infusion Ketorolac Tromethamine 15 mg 07/24/23 06:59 07/24/23 08:10 Ketorolac Tromethamine 15 Mg/Ml Vial IM 07/24/23 07:00 15 mg ONCE ONE Administration Medical Decision Making Medical Decision Making [facility] Narrative: Patient is a 72 year old assigned male at with a history of CABG, DM, HTN, and CAD presenting to the emergency department today with intermittent dyspnea, right sided back pain, weakness, and bilateral leg pain. Patient's physical exam was unremarkable. Patient's blood work was unremarkable. Patient's EKG was unremarkable. Patient's chest x-ray and lumbar spine x-ray showed no acute process. I explained my physical exam findings as well as all test results to the patient. I answered all questions asked by the patient. I stressed the importance of the patient taking his medication as prescribed. I stressed the importance of the patient having his HVAC system examined. I stressed the importance of the patient following up with his primary care provider. I stressed the importance of the patient returning to the emergency department immediately if his symptoms were to worsen or if he were to develop any dizziness, shortness of breath, difficulty breathing, chest pain, blurry vision, loss of vision, nausea, vomiting, abdominal pain, fever, chills, back pain, or any other complaints. Patient verbalized agreement and understanding with this treatment plan and discharge. Differential Diagnosis Differential Diagnoses: The differential diagnosis associated with the presentation includes Arthritis Allergies Intermittent dyspnea NSTEMI STEMI Admission/Observation Consideration of admission/observation: Escalation of care including admission/observation considered Patient would have been admitted to the hospital had his work up had any findings where hospital admission was appropriate and his clinical presentation warranted hospital admission. Lab Data [facility] Lab Attestation statement: I reviewed the patient's lab results. My interpretation of these results are in the [facility] Rationale portion of this note. 07/24/23 07:52 07/24/23 07:52 Labs: Lab Results 07/24/23 07/24/23 07/24/23 Range/Units 07:52 08:01 10:06 WBC 6.7 (4.8-10.8) X10*3/uL RBC 5.47 (4.60-5.80) X10*6/uL Hgb 14.9 (14.0-18.0) g/dl Hct 47.3 (42.0-52.0) % MCV 86.5 (80.0-98.0) fL MCH 27.2 (27.0-33.0) pg MCHC 31.5 (31.0-36.0) g/dl RDW 14.9 (11.0-16.0) % Plt Count 165 (160-400) X10*3/uL MPV 11.5 (9.4-12.4) fL Immature Gran % (Auto) 0.3 (0.0-0.4) % Neut % (Auto) 75.6 H (45-73) % Lymph % (Auto) 12.9 L (20-40) % [place] % (Auto) 7.4 (2-11) % Eos % (Auto) 3.4 (0-4) % Baso % (Auto) 0.4 (0-2) % Lymph # (Auto) 0.9 L (1.2-4.9) X10*3/uL [place] # (Auto) 0.5 (0.1-1.2) X10*3/uL Eos # (Auto) 0.2 (0.0-0.4) X10*3/uL Baso # (Auto) 0.0 (0.0-0.2) X10*3/uL Abs Immat Gran (auto) 0.02 (0.00-0.03) X10*3/uL Absolute Neuts (auto) 5.1 (2.0-8.3) x10*3/uL Absolute Nucleated RBC 0.000 (0.0-0.012) X10*3/uL Nucleated RBC % (auto) 0.0 (0.0-0.2) /100WBC Carboxyhemoglobin % 0.5 % Sodium 139 (135-145) mmol/L Potassium 4.2 (3.3-5.1) mmol/L Chloride 105 (96-108) mmol/L Carbon Dioxide 27 (22-29) mmol/L Anion Gap 11 L (12-20) BUN 27 H (9-16) mg/dL Creatinine 1.53 H (0.5-1.4) mg/dL Estim Creat Clear Calc 42.2 Estimated GFR 45 Random Glucose 141 H (60-115) mg/dL Calcium 9.0 D (8.4-10.2) mg/dL Total Bilirubin 0.5 (0.0-1.0) mg/dL AST 29 (5-37) U/L ALT 46 H (0-40) U/L Alkaline Phosphatase 86 (39-117) U/L Troponin I High Sens 24.0 22.7 (<3.5-35.0) ng/L Total Protein 6.7 (6.5-8.0) g/dL Albumin 3.5 (3.5-5.0) g/dL COVID-19 (MARCELLUS) Negative (Negative) COVID-19 Clin Com See Note Influenza Type A (TASHA) Negative (Negative) Influenza Type B (TASHA) Negative (Negative) Influenza A & B Note See Note Independent Interpretation I performed an independent interpretation of an: EKG and Plain X-Ray Interpretation: My interpretation is in agreement with the radiologist's impression of these imaging studies. - EXAMINATION: XR LUMBOSACRAL SPINE CLINICAL INFORMATION: Low back pain COMPARISON: Lumbar spine radiograph from 11/14/2020 TECHNIQUE: Three views of the lumbosacral spine. FINDINGS: 5 nonrib-bearing lumbar-type vertebral bodies no acute visible fracture or dislocation. Mild multilevel degenerative changes with disc space narrowing, osteophyte formation, and facet arthropathy. Vertebral body heights and disc spaces are maintained. Posterior elements are intact. Paraspinal soft tissues are unremarkable. Surgical clips right upper abdomen and pelvis. Bowel gas is unremarkable. XR/XR lumbar spine 2-3V IMPRESSION: 1. No acute visible fracture or dislocation. 2. Mild multilevel degenerative changes. Dictated By: Elías Arevalo MD Signed By: Electronically signed by Elías Arevalo MD 07/24/23 0849 - EXAMINATION: XR CHEST CLINICAL INFORMATION: Cough with pain COMPARISON: May 17, 2023 and May 09, 2023. TECHNIQUE: 2 views of the chest were obtained. FINDINGS: Patient has developed bilateral small pleural effusions with basilar disease. Left pleural effusion is larger than right. On prior study of May 09, 2023 a small pleural effusion was present. Patient status post median sternotomy and CABG. There is chronic elevation of the right hemidiaphragm. No evidence of pulmonary edema. No pneumothorax. Heart mildly enlarged. XR/XR chest 2V IMPRESSION: Small bilateral pleural effusions with some basilar opacification. No evidence of pulmonary edema. Dictated By: David Reardon MD Signed By: Electronically signed by David Reardon MD 07/24/23 0846 - Vent. Rate: 074 BPM Atrial Rate: 074 BPM P-R Int: 212 ms QRS Dur: 102 ms QT Int: 442 ms P-R-T Axes: 044 -12 221 degrees QTc Int: 490 ms Sinus rhythm with 1st degree A-V block Incomplete right bundle branch block Moderate voltage criteria for LVH, may be normal variant (Sokolow-Desai, Catherine product) Septal infarct , age undetermined ST & T wave abnormality, consider anterolateral ischemia Abnormal ECG When compared with ECG of 17-MAY-2023 04:04, ID interval has increased ST now depressed in Anterior leads T wave inversion more evident in Anterior leads Electronically Signed By:ALVARO KAISER Dictated By: Alvaro Kaiser MD Signed By: Electronically signed by Alvaro Kaiser MD 07/24/23 1312 Radiology Impression Discussion of test interpretation with radiology: I have reviewed the radiologist's reading. Discharge Plan Discharge Clinical Impression: Arthritis Patient Disposition: Home, Self-Care Instructions: Osteoarthritis (DC) Additional Instructions: Follow up with your primary care provider. Return to the emergency department immediately if your symptoms worsen or if you develop any dizziness, shortness of breath, difficulty breathing, chest pain, blurry vision, loss of vision, nausea, vomiting, abdominal pain, fever, chills, back pain, or any other complaints. Omid un seguimiento con connors proveedor de atenci?n primaria. Regrese al departamento de emergencias inmediatamente si magalys s?ntomas empeoran o si presenta mareos, dificultad para respirar, dificultad para respirar, dolor en el pecho, visi?n borrosa, p?rdida de la visi?n, n?useas, v?mitos, dolor abdominal, fiebre, escalofr?os, dolor de espalda o cualquier otras quejas. Prescriptions: No Action atorvastatin 80 mg tablet 80 mg PO BEDTIME Qty: 90 3RF furosemide [Lasix] 20 mg tablet 20 mg PO MOWEFR Qty: 25 5RF Rx Instructions: Take 1 tablet 3 times weekly. Extra tablet as directed if needed for increased shortness of breath or leg swelling acetaminophen 500 mg tablet 1,000 mg PO Q6H PRN (Reason: pain) Qty: 30 0RF Praluent Pen 75 mg/mL Pen Injector 75 mg SUBCUT Q14D benzonatate 200 mg capsule 200 mg PO TID PRN (Reason: cough) Qty: 30 0RF trazodone 50 mg tablet 25 mg PO BEDTIME PRN (Reason: insomnia) insulin lispro [Humalog KwikPen Insulin] 100 unit/mL insulin pen 0 sliding scale dose SUBCUT QIDACHS Qty: 15 0RF Rx Instructions: Blood Sugar: <150 - 0 units 151-200 - 2 units 201-250 - 4 units 251-300 - 6 units 301-350 - 8 units >350 - 10 units (DME) pen needle, diabetic 32 gauge x 1/4 needle Qty: 100 0RF Rx Instructions: Use four times a day or as directed. amlodipine 10 mg tablet 10 mg PO BEDTIME aspirin 81 mg tablet,delayed release (DR/EC) 81 mg PO DAILY ezetimibe 10 mg tablet 10 mg PO BEDTIME hydralazine 10 mg tablet 10 mg PO TID Jardiance 25 mg tablet 25 mg PO DAILY pantoprazole 40 mg tablet,delayed release (DR/EC) 40 mg PO DAILY@0630 mirtazapine 15 mg tablet 7.5 mg PO BEDTIME carvedilol 25 mg tablet 25 mg PO BID Trulicity 0.75 mg/0.5 mL pen injector 0.75 mg subcut WE spironolactone [Aldactone] 25 mg tablet 25 mg PO DAILY Qty: 30 5RF Referrals: Michelle Zhang MD [Primary Care Provider] - Interventions: ED Discharge Assessment Last Done: 07/24/23 11:17 Discharge Date/Time: 07/24/23 11:19 Print Language: Luxembourger
--- NOTE | 2023-07-24 06:57 | ECG_ITS ---
Test Reason : WEAKNESS Blood Pressure : / mmHG Vent. Rate : 074 BPM Atrial Rate : 074 BPM P-R Int : 212 ms QRS Dur : 102 ms QT Int : 442 ms P-R-T Axes : 044 -12 221 degrees QTc Int : 490 ms Sinus rhythm with 1st degree A-V block Incomplete right bundle branch block Moderate voltage criteria for LVH, may be normal variant ( Sokolow-Desai , Reuben product ) Septal infarct , age undetermined ST & T wave abnormality, consider anterolateral ischemia Abnormal ECG When compared with ECG of 17-MAY-2023 04:04, MO interval has increased ST now depressed in Anterior leads T wave inversion more evident in Anterior leads Referred By: Macy Butler Electronically Signed By:LORRAINE KAISER
[2023-07-24 07:58] LABS: MANUAL DIFF FLAG NO
[2023-07-24 08:03] LABS: Basophils Percent Auto 0.4 % (0-2); Eosinophils Absolute Auto 0.2 X10*3/uL (0.0-0.4); Eosinophils Percent Auto 3.4 % (0-4); Hematocrit 47.3 % (42.0-52.0); Hemoglobin 14.9 g/dl (14.0-18.0); Imm Gran Abs Auto 0.02 X10*3/uL (0.00-0.03); Imm Gran Pct Auto 0.3 % (0.0-0.4); Lymphocytes Absolute Auto 0.9 X10*3/uL (1.2-4.9); Lymphocytes Percent Auto 12.9 % (20-40); Mean Corpuscular HGB Conc 31.5 g/dl (31.0-36.0); Mean Corpuscular Hemoglobin 27.2 pg (27.0-33.0); Mean Corpuscular Volume 86.5 fL (80.0-98.0); Mean Platelet Volume 11.5 fL (9.4-12.4); Monocytes Absolute Auto 0.5 X10*3/uL (0.1-1.2); Monocytes Percent Auto 7.4 % (2-11); Neutrophils Absolute Auto 5.1 x10*3/uL (2.0-8.3); Neutrophils Percent Auto 75.6 % (45-73); Platelet Count 165 X10*3/uL (160-400); Red Blood Count 5.47 X10*6/uL (4.60-5.80); Red Cell Distribution Width 14.9 % (11.0-16.0); White Blood Count 6.7 X10*3/uL (4.8-10.8)
[2023-07-24 08:05] LABS: Carbon Monoxide Refer to POC result
[2023-07-24 08:06] VITALS: BP 111/75; PULSE 75; RESP 16; O2SAT 95
[2023-07-24 08:06] LABS: Carbon Monoxide POC 0.5 %
[2023-07-24] MEDS: Ketorolac Tromethamine 15 MG/ML VIAL IM (08:10)
[2023-07-24 08:14] LABS: Alanine Aminotransferase 46 U/L (0-40); Albumin Level 3.5 g/dL (3.5-5.0); Alkaline Phosphatase 86 U/L (39-117); Anion Gap 11 (12-20); Aspartate Amino Transferase 29 U/L (5-37); Bilirubin Total 0.5 mg/dL (0.0-1.0); Blood Urea Nitrogen 27 mg/dL (9-16); Carbon Dioxide 27 mmol/L (22-29); Chloride 105 mmol/L (96-108); Creatinine Clr Calc Pharmacy 42.2; Estimated Glomerular Filt Rate 45; Glucose Random 141 mg/dL (60-115); Potassium 4.2 mmol/L (3.3-5.1); Sodium 139 mmol/L (135-145); Total Protein 6.7 g/dL (6.5-8.0)
[2023-07-24 08:17] LABS: COVID-19 Test Negative (Negative); IDNOW Serial# 08D9AD1C; IDNOW Serial# 152EDE1D
[2023-07-24 08:18] LABS: Influenza A Negative (Negative); Influenza B2 Negative (Negative)
[2023-07-24] MEDS: 0.9 % Sodium Chloride 1,000 ML 999 ML IV (08:53)
[2023-07-24 10:38] LABS: Troponin-I High Sensitivity 22.7 ng/L (<3.5-35.0)
== END 2023-07-24 11:19 | disposition home or self-care (01) ==
PROVIDERS: Physician Assistant Medical; Emergency Provider Emergency Medicine; PCP Family Medicine
DX: M47.816 Spondylosis without myelopathy or radiculopathy, lumbar region (principal); R06.02 Shortness of breath; R05.9 Cough, unspecified; M54.50 Low back pain, unspecified; M79.605 Pain in left leg; M79.604 Pain in right leg; R30.0 Dysuria; I45.10 Unspecified right bundle-branch block; I25.10 Atherosclerotic heart disease of native coronary artery without angina pectoris; I10 Essential (primary) hypertension; Z11.52 Encounter for screening for COVID-19; Z79.899 Other long term (current) drug therapy
CPT/HCPCS: 36415; 71046; 72100; 80053; 82375; 84484; 85025; 87502; 87635; 93005; 96360; 96361; 96372; 99284; 99285; J1885

== ENCOUNTER → 2023-07-24 06:57 | Outpatient (BNV) | payer OTHER, SELFPAY | PROVIDERS: Emergency Provider Emergency Medicine; PCP Family Medicine; Visit Provider Internal Medicine | DX: I44.0 Atrioventricular block, first degree (principal); I45.10 Unspecified right bundle-branch block | CPT/HCPCS: 93010 ==

== ENCOUNTER 2023-08-16 18:25 | Inpatient (IN) | payer OTHER, SELFPAY ==
--- NOTE | ~2023-08-16 | XR_ITS ---
EXAMINATION: XR ABDOMEN KUB CLINICAL INDICATION: Small bowel obstruction. COMPARISON: Chest of August 17, 2023. CT abdomen and pelvis of August 16, 2023. TECHNIQUE: 2 AP views of the abdomen. FINDINGS: Median sternotomy wires and mediastinal clips imaged. Surgical clips in the right upper quadrant. Degenerative changes in the imaged spine and bilateral hips. Moderate amount of stool in the colon. Small amount of gas is seen in the colon, particularly in the descending colon. Prominent distended loops of small bowel with possible thickening primarily in the central and left upper quadrant of the abdomen. XR/XR KUB IMPRESSION: Prominent distended loops of small bowel with possible thickening primarily in the central and left upper quadrant of the abdomen. Small amount of gas in the descending colon. This study was presented today August 19, 2023 for interpretation. STAT results provided at this time as requested by referring provider.
--- NOTE | ~2023-08-16 | CT_ITS ---
EXAMINATION: CT ABDOMEN AND PELVIS WITHOUT CONTRAST CLINICAL INFORMATION: Left lower quadrant abdominal pain and vomiting, fever. COMPARISON: Ultrasound abdomen screening 02/28/2017 TECHNIQUE: Multidetector volumetric imaging was performed from the superior aspect of the liver through the pubic symphysis. Sagittal and coronal reformatted images were obtained on the technologist's workstation. This CT examination was performed using dose optimization techniques as appropriate, variously including the following: *Automated exposure control *Adjustment of mA and/or kV according to patient size (this includes techniques or standardized protocols for targeted exams where dose is matched to indication/reason for exam; i.e. extremities or head) *Use of iterative reconstruction technique DLP: 510 mGy-cm FINDINGS: LUNG BASES: The heart size enlarged. There is no pericardial effusion. There is moderate coronary artery calcifications. There small hiatal hernia is noted. LIVER, GALLBLADDER, AND BILIARY TREE: The liver is normal in size, shape, and attenuation. No focal hepatic lesion or biliary ductal dilatation is present. The gallbladder has been surgically removed. PANCREAS: Unremarkable. SPLEEN: Unremarkable. ADRENAL GLANDS: Unremarkable. KIDNEYS AND URETERS: The kidneys are normal in size, shape, and attenuation. No hydronephrosis, hydroureter, or calculi seen. No perinephric stranding. There is a 1.7 cm exophytic cyst lower pole right kidney. There are 9 mm hypodense lesion upper pole right kidney most likely simple cysts. No workup is needed. BLADDER: Unremarkable. GASTROINTESTINAL TRACT: There is scattered stool and gas seen throughout the colon without significant distention. There are multiple prominent small bowel loops with air-fluid levels with no transitional zone seen. No free air or free fluid. ABDOMINAL WALL: No significant hernia is appreciated. LYMPH NODES: No abnormal lymph nodes seen. VASCULAR: Unremarkable. PELVIC VISCERA: There is mild prostate enlargement with central gland calcification. No abnormal pelvic or inguinal lymph nodes seen. OSSEOUS STRUCTURES: No aggressive lytic or sclerotic process seen. There is mild ventral spondylosis and median sternotomy sutures from previous intervention CT/CT abdomen pelvis wo IV con IMPRESSION: 1. Multiple prominent small bowel loops with air-fluid levels with no transitional zone seen. No free air or free fluid. 2. Mild constipation. 3. Mild prostate enlargement with central gland calcification. 4. There are 9 mm hypodense lesion upper pole right kidney most likely simple cysts. Fleischner guidelines were followed.
--- NOTE | ~2023-08-16 | XR_ITS ---
EXAMINATION: XR CHEST CLINICAL INFORMATION: NG tube placement COMPARISON: 07/24/2023 TECHNIQUE: Frontal view of the chest was obtained. FINDINGS: Enteric tube courses into the stomach. Redemonstrated sternal wires. There is slight elevation of the right hemidiaphragm. No focal consolidation is seen bilaterally. No evidence of pneumothorax. Trace right pleural effusion is better demonstrated on recent CT 08/16/2023. The cardiomediastinal contour is unremarkable. No acute osseous findings are seen. XR/XR chest 1V IMPRESSION: Enteric tube courses into the stomach. Trace right pleural effusion.
[2023-08-16 18:40] VITALS: BP 150/90; PULSE 82; O2SAT 94
[2023-08-16 19:30] VITALS: BP 164/91; PULSE 87; RESP 14; TEMP 36.8; O2SAT 96; BMI 24.2
[2023-08-16 19:54] LABS: MANUAL DIFF FLAG NO
[2023-08-16 19:57] LABS: Basophils Absolute Auto 0.1 X10*3/uL (0.0-0.2); Basophils Percent Auto 0.3 % (0-2); Eosinophils Absolute Auto 0.3 X10*3/uL (0.0-0.4); Eosinophils Percent Auto 1.6 % (0-4); Hematocrit 47.3 % (42.0-52.0); Imm Gran Abs Auto 0.06 X10*3/uL (0.00-0.03); Imm Gran Pct Auto 0.4 % (0.0-0.4); Lymphocytes Absolute Auto 0.9 X10*3/uL (1.2-4.9); Lymphocytes Percent Auto 5.5 % (20-40); Mean Corpuscular HGB Conc 31.7 g/dl (31.0-36.0); Mean Corpuscular Hemoglobin 26.9 pg (27.0-33.0); Mean Corpuscular Volume 84.9 fL (80.0-98.0); Mean Platelet Volume 10.6 fL (9.4-12.4); Monocytes Absolute Auto 0.9 X10*3/uL (0.1-1.2); Monocytes Percent Auto 5.8 % (2-11); Neutrophils Absolute Auto 13.8 x10*3/uL (2.0-8.3); Neutrophils Percent Auto 86.4 % (45-73); Platelet Count 189 X10*3/uL (160-400); Red Blood Count 5.57 X10*6/uL (4.60-5.80); Red Cell Distribution Width 14.6 % (11.0-16.0)
[2023-08-16 20:08] LABS: Appearance Urine Clear; Color Urine Yellow; Glucose Urine UA >=1000 mg/dL (Negative); Leukocyte Esterase Urine Negative (Negative); Nitrite Urine Negative (Negative); UMIC TRIGGER UACC YES; Urine Blood Negative (Negative); Urine Ketones Trace mg/dL (Negative); Urine Protein 30 (1+) mg/dL (Neg-Trace)
[2023-08-16 20:12] LABS: Alanine Aminotransferase 47 U/L (0-40); Alkaline Phosphatase 100 U/L (39-117); Anion Gap 15 (12-20); Aspartate Amino Transferase 33 U/L (5-37); Bilirubin Total 0.5 mg/dL (0.0-1.0); Blood Urea Nitrogen 29 mg/dL (9-16); Calcium 10.5 mg/dL (8.4-10.2); Carbon Dioxide 29 mmol/L (22-29); Chloride 104 mmol/L (96-108); Creatinine Clr Calc Pharmacy 45.6; Estimated Glomerular Filt Rate 54; Glucose Random 145 mg/dL (60-115); Lipase 53 U/L (8-78); Potassium 3.9 mmol/L (3.3-5.1); Sodium 144 mmol/L (135-145); Total Protein 7.7 g/dL (6.5-8.0)
[2023-08-16 20:13] LABS: Bacteria Urine None Seen (None Seen); Hyaline Casts Urine 0-2 /LPF (0-2); RBC Urine 0-2 /HPF (0-2); Squamous Epithelial Cell Urine 0-2 /HPF (0-2); WBC Urine 0-5 /HPF (0-5)
--- NOTE | 2023-08-16 20:18 | ED_ITS ---
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 Last bowel movement was 3 days ago patient normally go every 3-4 days which he felt not abnormal for him. No history of intra-abdominal surgery in the past. stated that the patient had chills earlier today. Related Data Home Medications Medication Instructions Recorded Confirmed amlodipine 10 mg tablet 10 mg PO BEDTIME 03/08/21 06/02/23 aspirin 81 mg tablet,delayed 81 mg PO DAILY 03/08/21 06/02/23 release carvedilol 25 mg tablet 25 mg PO BID 03/08/21 06/02/23 empagliflozin 25 mg tablet 25 mg PO DAILY 03/08/21 06/02/23 (Jardiance) ezetimibe 10 mg tablet 10 mg PO BEDTIME 03/08/21 06/02/23 hydralazine 10 mg tablet 10 mg PO TID 03/08/21 06/02/23 mirtazapine 15 mg tablet 7.5 mg PO BEDTIME 03/08/21 06/02/23 pantoprazole 40 mg tablet,delayed 40 mg PO DAILY@0630 03/08/21 06/02/23 release dulaglutide 0.75 mg/0.5 mL 0.75 mg subcut WE 03/07/22 06/02/23 subcutaneous pen injector (Trulicity) alirocumab 75 mg/mL subcutaneous 75 mg subcut Q14D 04/24/23 06/02/23 pen injector (Praluent Pen) trazodone 50 mg tablet 25 mg PO BEDTIME PRN insomnia 05/09/23 06/02/23 Previous Rx's Medication Instructions Recorded acetaminophen 500 mg tablet 1,000 mg (2 x 500 mg) PO Q6H PRN 11/14/20 pain #30 tabs atorvastatin 80 mg tablet 80 mg PO BEDTIME #90 tabs 09/23/22 insulin lispro 100 unit/mL 0 sliding scale dose subcut 05/11/23 subcutaneous pen (Humalog MorenaPen QIDACHS #15 mL (U-100) Insulin) pen needle, diabetic 32 gauge x #100 ea 05/11/2306/19 benzonatate 200 mg capsule 200 mg PO TID PRN cough #30 caps 05/17/23 spironolactone 25 mg tablet 25 mg PO DAILY #30 tabs 06/02/23 (Aldactone) furosemide 20 mg tablet (Lasix) 20 mg PO MOWEFR #25 tabs 06/17/23 Allergies Allergy/AdvReac Type Severity Reaction Status Date / Time No Known Allergies Allergy Verified 08/16/23 19:30 Review of Systems Review of Systems All other systems are reviewed and are negative Constitutional: Reports as per HPI and Reports no additional constitutional complaints Eyes: Reports as per HPI and Reports no additional eye complaints Reports system reviewed and no additional complaints, except as documented Cardiovascular: Reports as per HPI and Reports no additional cardiovascular complaints Respiratory: Reports as per HPI and Reports no additional respiratory complaints Gastrointestinal: Reports as per HPI and Reports no additional gastrointestinal complaints Genitourinary: Reports no additional female genitourinary complaints Musculoskeletal: Reports no additional musculoskeletal complaints Skin/Breast: Reports system reviewed and no additional complaints, except as docu Psychiatric: Reports no additional psychiatric complaints Endocrine: Reports no additional endocrine complaints Hematologic/Lymphatic: Reports no additional hematologic/lymphatic complaints Allergic/Immunologic: Reports no additional allergic/immunologic complaints Reports system reviewed and no additional complaints, except as documented and Reports Abnormal speech present [facility] Past Medical History Medical History Renal failure GERD (gastroesophageal reflux disease) Chronic renal insufficiency Hyperlipidemia Diabetes mellitus Ischemic cardiomyopathy HTN (hypertension) CAD (coronary artery disease) Surgical History H/O colonoscopy Hx of cholecystectomy S/P CABG x 4 Social History Social History Household Members: Other Housing: Apartment Alcohol intake: former Patient Tobacco Use Status: Never used Tobacco Smoked in Last 30 Days: No Second Hand Smoke Exposure: No Use of substances other than those prescribed or required for medical reasons: No Advance Directives: No Advance Directives Information Provided: No Advance Directives Date on File: 05/09/23 service: No Physical Exam ED Vital Signs: Vital Signs - 24 hr 08/16/23 19:30 08/16/23 22:55 Temperature 98.3 F 97.8 F Pulse Rate 87 90 Respiratory Rate 14 18 Blood Pressure 164/91 H 119/62 Pulse Oximetry 96 94 Oxygen Delivery Method Room Air Room Air BMI result Body Mass Index 24.2 Vital signs have been reviewed and appear to be correct. Blood pressure elevated. Heart rate normal. Respiratory rate normal. Temperature normal. Oxygen saturation normal. Appearance: Alert. Oriented X3. No acute distress. Head: Normal external exam. Normocephalic. Atraumatic. No Call signs noted. No raccoon eyes noted Eyes: PERRLA. EOMI. Conjunctiva and sclera normal. Eyelids normal. ENT: TM's Normal. Pharynx normal. Uvula midline. Moist mucous membranes. No trismus noted. No drooling noted. No muffled voice noted. Neck: Normal inspection. Neck supple. FROM. No adenopathy. Thyroid Normal. No meningeal signs. No neck mass noted. CVS: Normal heart rate and rhythm. Heart sound normal. No murmurs noted. Pulses normal throughout. Respiratory: No respiratory distress. Painless inspiration. Breath sounds normal. No wheezes/rales/rhonchi noted. Chest nontender. No accessory muscle usage noted or decreased air movement noted. Abdomen: Left lower quadrant abdominal tenderness, no rebound tenderness, no guarding. Bowel sounds normal in all 4 quadrants. No distention noted. No organomegaly noted. No visible injury noted. Back: No CVA tenderness. Full range of motion noted. Skin: Skin warm and dry. Normal skin color. Normal skin turgor. No rashes/lesions/lacerations noted. Extremities: No lower extremity edema. Extremities exhibit normal range of motion. Extremities nontender. Neuro: Oriented X 3. Cranial nerve exam: II-XII are grossly intact No motor deficit. No sensory deficit. Reflexes normal. Course Reevaluation(s) Reevaluation #1: Abdominal pain, nausea and vomiting has improved after given morphine and Zofran in the ED. CT is questioning ileus versus small-bowel obstruction the case was discussed with Dr. Davis in light of leukocytosis of 16 and no bowel movement for the past 3 days and multiple other medical problems was recommended by Dr. Davis to admit to medical service for observation and further evaluation with serial abdominal exam. Time: 00:10 Medical Decision Making Differential Diagnosis Differential Diagnoses: The differential diagnosis associated with the presentation includes (Small-bowel obstruction, ileus, constipation, colitis, diverticulitis, pancreatitis, acute cholecystitis, electrolyte derangement, severe anemia.) Admission/Observation Consideration of admission/observation: Escalation of care including admission/observation considered Consult Healthcare Provider Management of the patient was discussed with: Hospitalist (Dr. Jules) and Fitness Assistant (Dr. Davis) Lab Data MDM Lab Attestation statement: I reviewed the patient's lab results. 08/16/23 19:49 08/16/23 19:49 Labs: Lab Results 08/16/23 08/16/23 08/16/23 Range/Units 19:49 20:02 20:59 WBC 16.0 H (4.8-10.8) X10*3/uL RBC 5.57 (4.60-5.80) X10*6/uL Hgb 15.0 (14.0-18.0) g/dl Hct 47.3 (42.0-52.0) % MCV 84.9 (80.0-98.0) fL MCH 26.9 L (27.0-33.0) pg MCHC 31.7 (31.0-36.0) g/dl RDW 14.6 (11.0-16.0) % Plt Count 189 (160-400) X10*3/uL MPV 10.6 (9.4-12.4) fL Immature Gran % (Auto) 0.4 (0.0-0.4) % Neut % (Auto) 86.4 H (45-73) % Lymph % (Auto) 5.5 L (20-40) % [place] % (Auto) 5.8 (2-11) % Eos % (Auto) 1.6 (0-4) % Baso % (Auto) 0.3 (0-2) % Lymph # (Auto) 0.9 L (1.2-4.9) X10*3/uL [place] # (Auto) 0.9 (0.1-1.2) X10*3/uL Eos # (Auto) 0.3 (0.0-0.4) X10*3/uL Baso # (Auto) 0.1 (0.0-0.2) X10*3/uL Abs Immat Gran (auto) 0.06 H (0.00-0.03) X10*3/uL Absolute Neuts (auto) 13.8 H (2.0-8.3) x10*3/uL Absolute Nucleated RBC 0.000 (0.0-0.012) X10*3/uL Nucleated RBC % (auto) 0.0 (0.0-0.2) /100WBC Sodium 144 (135-145) mmol/L Potassium 3.9 (3.3-5.1) mmol/L Chloride 104 (96-108) mmol/L Carbon Dioxide 29 (22-29) mmol/L Anion Gap 15 (12-20) BUN 29 H (9-16) mg/dL Creatinine 1.30 (0.5-1.4) mg/dL Estim Creat Clear Calc 45.6 Estimated GFR 54 Random Glucose 145 H (60-115) mg/dL Lactic Acid 1.1 (0.5-2.0) mmol/L Calcium 10.5 H D (8.4-10.2) mg/dL Total Bilirubin 0.5 (0.0-1.0) mg/dL AST 33 (5-37) U/L ALT 47 H (0-40) U/L Alkaline Phosphatase 100 (39-117) U/L Total Protein 7.7 (6.5-8.0) g/dL Albumin 4.0 (3.5-5.0) g/dL Lipase 53 (8-78) U/L Urine Color Yellow Urine Appearance Clear Urine pH 6.0 (5.0-9.0) Ur Specific [place] 1.020 (1.005-1.025) Urine Protein 30 (1+) H (Neg-Trace) mg/dL Urine Glucose (UA) >=1000 H (Negative) mg/dL Urine Ketones Trace (Negative) mg/dL Urine Blood Negative (Negative) Urine Nitrite Negative (Negative) Ur Leukocyte Esterase Negative (Negative) Urine RBC 0-2 (0-2) /HPF Urine WBC 0-5 (0-5) /HPF Ur Squamous Epith Cells 0-2 (0-2) /HPF Urine Bacteria None Seen (None Seen) Hyaline Casts 0-2 (0-2) /LPF Independent Interpretation I performed an independent interpretation of an: CT Scan (Abdomen and pelvis:1. Multiple prominent small bowel loops with air-fluid levels with no transitional zone seen. No free air or free fluid. 2. Mild constipation. 3. Mild prostate enlargement with central gland calcification. 4. There are 9 mm hypodense lesion upper pole right kidney most likely ) Radiology Impression Discussion of test interpretation with radiology: I have reviewed the radiologist's reading. Medications Administered Discontinued Medications Generic Name Dose Route Start Last Admin Trade Name Freq PRN Reason Stop Dose Admin Sodium Chloride 1,000 mls @ 999 mls/hr 08/16/23 20:16 08/16/23 22:46 Ns IV 08/16/23 21:16 Infused .Q1H1M ONE Infusion Magnesium Hydroxide 30 ml 08/16/23 23:06 08/16/23 23:15 Milk Of Magnesia 30 Ml Oral.Susp PO 08/16/23 23:07 30 ml ONCE ONE Administration Morphine Sulfate 1 mg 08/16/23 20:16 08/16/23 20:59 Morphine Sulfate 2 Mg/Ml Cartridge IVPUSH 08/16/23 20:17 1 mg ONCE ONE Administration Protocol Ondansetron HCl 4 mg 08/16/23 20:16 08/16/23 20:59 Ondansetron Hcl 4 Mg/2 Ml Vial IVPUSH 08/16/23 20:17 4 mg ONCE ONE Administration Critical Care Time Critical Care Time Critical Care Time: Yes Total Critical Care Time: 45 Attestation: I spent 45 minutes providing critical care service to the patient, this including time spent at the bedside to evaluate the patient, reassess the patient, monitoring vital signs, review labs, and radiographic studies, counseling the patient/family, discussing the case with consultants, disposition the patient. Discharge Plan Discharge Clinical Impression: Abdominal pain, Small bowel obstruction, Ileus Patient Disposition: Admitted As Inpatient
[2023-08-16] MEDS: 0.9 % Sodium Chloride 1,000 ML 999 ML IV (20:58)
[2023-08-16] MEDS: ondansetron HCL 4 MG/2 ML VIAL IVPUSH (20:59)
[2023-08-16] MEDS: Morphine Sulfate 2 MG/ML CARTRIDGE 1 MG IVPUSH (20:59)
[2023-08-16 21:17] LABS: Lactic Acid 1.1 mmol/L (0.5-2.0)
[2023-08-16 22:55] VITALS: BP 119/62; PULSE 90; RESP 18; TEMP 36.6; O2SAT 94
[2023-08-16] MEDS: Milk of Magnesia 30 ML ORAL.SUSP PO (23:15)
--- NOTE | 2023-08-17 00:39 | PM.IMHP ---
History of Present Illness Date of Service: 08/17/23 Chief Complaint: Abdominal Pain This is a 72-year-old male with pertinent history of CAD status post CABG, essential hypertension, mood disorder, insulin-dependent diabetes mellitus, congestive heart failure with reduced ejection fraction, gastroesophageal reflux disease who presents to the emergency department for evaluation of abdominal discomfort. He is Mongolian-speaking and history was obtained with the help of pluck separator. Patient states he started having lower abdominal discomfort that started on the day of presentation. It was constant, progressive, nonradiating and without any relieving factors. It was associated with nausea and nonbloody emesis. Patient states he had about 15 episodes of vomiting on the day of presentation. No history of similar complaints in the past. He denies fever or chills. States his last bowel movement was 3 days prior to presentation. This is unusual for him and he usually has a bowel movement every day. No chest discomfort, palpitations, shortness of breath, changes in urinary habits. In the emergency department, Imaging with multiple prominent small bowel loops with air-fluid levels. General surgery was consulted who requested admission with hospital medicine team for possible SBO versus ileus. Review of Systems Constitutional: Constitutional: Reports no additional constitutional complaints Cardiovascular: Cardiovascular: Reports no additional cardiovascular complaints Respiratory: Respiratory: Reports no additional respiratory complaints Gastrointestinal: Gastrointestinal: Reports abdominal pain, Reports nausea and Reports vomiting Genitourinary: Genitourinary: Reports no additional male genitourinary complaints [facility] Medical History Renal failure GERD (gastroesophageal reflux disease) Chronic renal insufficiency Hyperlipidemia Diabetes mellitus Ischemic cardiomyopathy HTN (hypertension) CAD (coronary artery disease) Pertinent family history: No family history of early CAD Surgical History H/O colonoscopy Hx of cholecystectomy S/P CABG x 4 Social History Household Members: Other Housing: Apartment Alcohol intake: former Patient Tobacco Use Status: Never used Tobacco Smoked in Last 30 Days: No Second Hand Smoke Exposure: No Use of substances other than those prescribed or required for medical reasons: No Advance Directives: No Advance Directives Information Provided: No Advance Directives Date on File: 05/09/23 service: No Meds Allergies Allergy/AdvReac Type Severity Reaction Status Date / Time No Known Allergies Allergy Verified 08/16/23 19:30 Home Medications Medication Instructions Recorded Confirmed Last Taken Type amlodipine 10 mg tablet 10 mg PO BEDTIME 03/08/21 06/02/23 Unknown History aspirin 81 mg tablet,delayed 81 mg PO DAILY 03/08/21 06/02/23 Unknown History release carvedilol 25 mg tablet 25 mg PO BID 03/08/21 06/02/23 Unknown History empagliflozin 25 mg tablet 25 mg PO DAILY 03/08/21 06/02/23 Unknown History (Jardiance) ezetimibe 10 mg tablet 10 mg PO BEDTIME 03/08/21 06/02/23 Unknown History hydralazine 10 mg tablet 10 mg PO TID 03/08/21 06/02/23 Unknown History mirtazapine 15 mg tablet 7.5 mg PO BEDTIME 03/08/21 06/02/23 Unknown History pantoprazole 40 mg tablet,delayed 40 mg PO DAILY@0630 03/08/21 06/02/23 Unknown History release dulaglutide 0.75 mg/0.5 mL 0.75 mg subcut WE 03/07/22 06/02/23 05/07/23 History subcutaneous pen injector (Trulicity) alirocumab 75 mg/mL subcutaneous 75 mg subcut Q14D 04/24/23 06/02/23 05/02/23 History pen injector (Praluent Pen) trazodone 50 mg tablet 25 mg PO BEDTIME PRN insomnia 05/09/23 06/02/23 Unknown History Physical Exam Vital Signs and Narrative: Vital Signs: Last Vital Signs Temp 97.8 F 08/16/23 22:55 Pulse 90 08/16/23 22:55 Resp 18 08/16/23 22:55 BP 119/62 08/16/23 22:55 Pulse Ox 94 08/16/23 22:55 O2 Del Method Room Air 08/16/23 22:55 BMI result Body Mass Index 24.2 Elderly male lying in bed in no distress Neck supple, no JVD Regular rate and rhythm, S1-S2 heard Regular breath sounds bilaterally, no wheezing or crackles appreciated Abdomen with generalized lower abdomen tenderness to palpation, no rigidity, no rebound tenderness Patient is awake, alert and oriented to self, place, time and person ; no focal motor deficit Psych: Normal mood No pedal edema Results Labs 08/16/23 19:49 08/16/23 19:49 Labs: Laboratory Results - last 24 hr 08/16/23 08/16/23 08/16/23 19:49 20:02 20:59 MCV 84.9 MCH 26.9 L MCHC 31.7 RDW 14.6 Plt Count 189 MPV 10.6 Immature Gran % (Auto) 0.4 Neut % (Auto) 86.4 H Lymph % (Auto) 5.5 L [place] % (Auto) 5.8 Eos % (Auto) 1.6 Baso % (Auto) 0.3 Lymph # (Auto) 0.9 L [place] # (Auto) 0.9 Eos # (Auto) 0.3 Baso # (Auto) 0.1 Abs Immat Gran (auto) 0.06 H Absolute Neuts (auto) 13.8 H Absolute Nucleated RBC 0.000 Nucleated RBC % (auto) 0.0 Anion Gap 15 Estim Creat Clear Calc 45.6 Estimated GFR 54 Random Glucose 145 H Lactic Acid 1.1 Calcium 10.5 H D Total Bilirubin 0.5 AST 33 ALT 47 H Alkaline Phosphatase 100 Total Protein 7.7 Albumin 4.0 Lipase 53 Urine Color Yellow Urine Appearance Clear Urine pH 6.0 Ur Specific [place] 1.020 Urine Protein 30 (1+) H Urine Glucose (UA) >=1000 H Urine Ketones Trace Urine Blood Negative Urine Nitrite Negative Ur Leukocyte Esterase Negative Urine RBC 0-2 Urine WBC 0-5 Ur Squamous Epith Cells 0-2 Urine Bacteria None Seen Hyaline Casts 0-2 Imaging Radiologist's Impressions: Impressions Abdomen/Pelvis CT 08/16/23 20:50 IMPRESSION: 1. Multiple prominent small bowel loops with air-fluid levels with no transitional zone seen. No free air or free fluid. 2. Mild constipation. 3. Mild prostate enlargement with central gland calcification. 4. There are 9 mm hypodense lesion upper pole right kidney most likely simple cysts. Fleischner guidelines were followed. Assessment and Plan (1) Abdominal pain: Status: Acute (2) Nausea and vomiting: Status: Acute Plan This is a 72-year-old male with pertinent history of CAD status post CABG, essential hypertension, mood disorder, insulin-dependent diabetes mellitus, congestive heart failure with reduced ejection fraction, gastroesophageal reflux disease who presents to the emergency department for evaluation of abdominal discomfort. #. Abdominal pain with intractable nausea and vomiting: Imaging with multiple small bowel loops with air-fluid levels, concerning for SBO versus ileus. General surgery was consulted from the ER, appreciate assistance. Will keep patient NPO for bowel rest. NG tube for gastrointestinal decompression. #. Insulin-dependent diabetes mellitus: Initiating Accu-Cheks with sliding scale insulin every 6 hours #. CAD status post CABG / essential hypertension: Resume p.o. medications once able to take p.o. #. Systolic congestive heart failure: No decompensation5 during admission #. Mood disorder: Resume home mood stabilizers once able to take p.o. #. Reactive leukocytosis Med rec pending DVT prophylaxis: SCDs Full code Admit as inpatient and will require two night minimum hospital stay for management of possible SBO versus ileus in a patient with intractable vomiting (as above), which is not possible in a lesser acute setting. Specialist consult pending Quality Stroke Does the patient have a stroke diagnosis?: No VTE Prior VTE?: No VTE Risk Level:: Medical - moderate - high VTE Device Contraindication: Treatment Not Indicated VTE Drug Contraindication: N/A - Med Ordered
[2023-08-17 02:01] VITALS: BP 118/67; PULSE 85; RESP 14; TEMP 36.8; O2SAT 98
[2023-08-17 02:03] LABS: Glucose, Whole Blood 133 mg/dL (60-115)
--- NOTE | 2023-08-17 03:10 | PC.NURSE ---
Nasogatric tube inserted into the right nare with intermittent suction. Placement confirmed by auscultation. Brown/green content in collection container. x-ray ordered for placement confirmation. Pt tolerated well.
[2023-08-17 05:18] LABS: MANUAL DIFF FLAG NO
[2023-08-17 05:21] LABS: Basophils Percent Auto 0.3 % (0-2); Eosinophils Percent Auto 0.2 % (0-4); Hematocrit 41.4 % (42.0-52.0); Hemoglobin 13.3 g/dl (14.0-18.0); Imm Gran Abs Auto 0.05 X10*3/uL (0.00-0.03); Imm Gran Pct Auto 0.4 % (0.0-0.4); Lymphocytes Absolute Auto 0.9 X10*3/uL (1.2-4.9); Lymphocytes Percent Auto 7.4 % (20-40); Mean Corpuscular HGB Conc 32.1 g/dl (31.0-36.0); Mean Corpuscular Hemoglobin 27.4 pg (27.0-33.0); Mean Corpuscular Volume 85.4 fL (80.0-98.0); Mean Platelet Volume 11.2 fL (9.4-12.4); Monocytes Absolute Auto 0.8 X10*3/uL (0.1-1.2); Monocytes Percent Auto 6.7 % (2-11); Neutrophils Absolute Auto 10.4 x10*3/uL (2.0-8.3); Platelet Count 169 X10*3/uL (160-400); Red Blood Count 4.85 X10*6/uL (4.60-5.80); Red Cell Distribution Width 14.6 % (11.0-16.0); White Blood Count 12.2 X10*3/uL (4.8-10.8)
[2023-08-17 05:36] LABS: Anion Gap 13 (12-20); Blood Urea Nitrogen 26 mg/dL (9-16); Calcium 9.1 mg/dL (8.4-10.2); Carbon Dioxide 28 mmol/L (22-29); Chloride 104 mmol/L (96-108); Creatinine Clr Calc Pharmacy 49.4; Estimated Glomerular Filt Rate 59; Glucose Random 133 mg/dL (60-115); Potassium 3.2 mmol/L (3.3-5.1); Sodium 142 mmol/L (135-145)
[2023-08-17 06:10] VITALS: BP 122/65; PULSE 78; RESP 12; TEMP 36.9; O2SAT 95
--- NOTE | 2023-08-17 07:47 | PM.EVENT ---
Event Note Date of Service: 08/17/23 Event Note: This is a 72-year-old male with pertinent history of CAD status post CABG, essential hypertension, mood disorder, insulin-dependent diabetes mellitus, congestive heart failure with reduced ejection fraction, gastroesophageal reflux disease who presents to the emergency department for evaluation of abdominal discomfort. Abdominal pain with intractable nausea and vomiting Imaging with multiple small bowel loops with air-fluid levels, concerning for SBO versus ileus. General surgery following NPO for bowel rest. NG tube for gastrointestinal decompression. Hypokalemia IV potassium Insulin-dependent diabetes mellitus Initiating Accu-Cheks with sliding scale insulin every 6 hours CAD status post CABG / essential hypertension Resume p.o. medications once able to take p.o. Systolic congestive heart failure No decompensation during admission Mood disorder Resume home mood stabilizers once able to take p.o. Reactive leukocytosis DVT prophylaxis: SCDs Attending Dr. Alcantar Full code Admit as inpatient and will require two night minimum hospital stay for management of possible SBO versus ileus in a patient with intractable vomiting (as above), which is not possible in a lesser acute setting. Specialist consult pending Time Spent With Patient Time: Total time managing care of this patient today ____ minutes.
[2023-08-17 08:10] LABS: Glucose, Whole Blood 102 mg/dL (60-115)
--- NOTE | 2023-08-17 08:30 | PC.NURSE ---
PT IS A/O X 4 (PHD INTERN). NO SOB/MARINA NOTED SPEAKS IN FULL SENTENCES. PT/SIGNIFICANT OTHER AWARE OF PLAN OF CARE. PT HAS AN NG TUBE TO R NARES WHICH WAS PLACED BY WASHERY BOSS RN. OUTPUT IN CANISTER IS BROWN AND AT 300ML. WILL CONTINUE MONITOR.
[2023-08-17] MEDS: Potassium Chloride/H20 10 MEQ/100 ML PIGGYBACK 100 MEQ IV ×2 (08:46→12:41)
[2023-08-17] MEDS: 0.9 % Sodium Chloride Flush 3 ML SYRINGE IVFLUSH ×2 (08:47→17:47)
--- NOTE | 2023-08-17 09:09 | P.CONGS_ITS ---
History of Present Illness Consult details Consult date: 08/17/23 Narrative: 72-year-old male patient presenting with a 3 day history of abdominal pain in the lower abdomen associated with nausea and vomiting x5. He denies a previous history of constipation, nausea or vomiting. He denies any sick contacts. The pain was felt equally in both the lower left and right quadrants. He previously underwent colonoscopy on 04/28/[address] Little. This revealed diverticulosis with no evidence of diverticulitis or polyps. Workup in the emergency department revealed an elevated WBC of 16.0. Subsequent CT abdomen and pelvis revealed diffusely dilated small bowel with stool in the colon, air-fluid level, with no apparent transition point. This was felt to be either a partial small- bowel obstruction or ileus. Nasogastric tube was inserted in the emergency department. This morning the patient does feel improved with decreased abdominal pain and no further nausea or vomiting. He denies a bowel movement since admission. Review of Systems 2 Review of Systems: Yes all other systems are reviewed and are negative PMFSH Past Medical History Medical History Renal failure GERD (gastroesophageal reflux disease) Chronic renal insufficiency Hyperlipidemia Diabetes mellitus Ischemic cardiomyopathy HTN (hypertension) CAD (coronary artery disease) Surgical History Surgical History H/O colonoscopy Hx of cholecystectomy S/P CABG x 4 Social History Social History Household Members: Other Housing: Apartment Alcohol intake: former Patient Tobacco Use Status: Never used Tobacco Smoked in Last 30 Days: No Second Hand Smoke Exposure: No Use of substances other than those prescribed or required for medical reasons: No Advance Directives: No Advance Directives Information Provided: No Advance Directives Date on File: 05/09/23 Nutrition Risks: No Nutritional Risk service: No Meds Allergies Allergy/AdvReac Type Severity Reaction Status Date / Time No Known Allergies Allergy Verified 08/16/23 19:30 Active Medications: Current Medications Acetaminophen (Acetaminophen 325 Mg Tablet) 650 mg PO Q6H PRN PRN Reason: Pain, Mild (Pain Scale 1-3) Dextrose (Dextrose 50 % 25 Gm/50 Ml Syringe) 25 gm IVPUSH Q15M PRN; Protocol PRN Reason: per Hypoglycemia Standing Ord. Glucose (Glucose Gel 15 Gm Gel..Gram.) 15 gm PO Q15M PRN; Protocol PRN Reason: per Hypoglycemia Standing Ord. Potassium Chloride (Potassium Chloride/H20) 10 meq in 100 mls @ 100 mls/hr IV Q1H [facility] Stop: 08/17/23 09:59 Last Admin: 08/17/23 08:46 Dose: 100 mls/hr Insulin Human Lispro (Insulin Lispro 100 Unit/Ml 3 Ml Vial) 0 unit SUBCUT Q6H [facility]; Protocol Last Admin: 08/17/23 04:22 Dose: Not Given Melatonin (Melatonin 3 Mg Tablet) 6 mg PO BEDTIME PRN PRN Reason: Insomnia Ondansetron HCl (Ondansetron Hcl 4 Mg/2 Ml Vial) 4 mg IVPUSH Q8H PRN PRN Reason: Nausea and Vomiting Sodium Chloride (0.9 % Sodium Chloride Flush 3 Ml Syringe) 3 ml IVFLUSH QSHIFT [facility] Last Admin: 08/17/23 08:47 Dose: 3 ml Home Medications Medication Instructions Recorded Confirmed Last Taken Type amlodipine 10 mg tablet 10 mg PO BEDTIME 03/08/21 08/17/23 Unknown History aspirin 81 mg tablet,delayed 81 mg PO DAILY 03/08/21 08/17/23 Unknown History release carvedilol 25 mg tablet 25 mg PO BID 03/08/21 08/17/23 Unknown History empagliflozin 25 mg tablet 25 mg PO DAILY 03/08/21 08/17/23 Unknown History (Jardiance) ezetimibe 10 mg tablet 10 mg PO BEDTIME 03/08/21 08/17/23 Unknown History hydralazine 10 mg tablet 10 mg PO TID 03/08/21 08/17/23 Unknown History mirtazapine 15 mg tablet 7.5 mg PO BEDTIME 03/08/21 08/17/23 Unknown History pantoprazole 40 mg tablet,delayed 40 mg PO DAILY@0630 03/08/21 08/17/23 Unknown History release dulaglutide 0.75 mg/0.5 mL 0.75 mg subcut WE 03/07/22 08/17/23 05/07/23 History subcutaneous pen injector (Trulicity) alirocumab 75 mg/mL subcutaneous 75 mg subcut Q14D 04/24/23 08/17/23 05/02/23 History pen injector (Praluent Pen) trazodone 50 mg tablet 50 mg PO BEDTIME PRN insomnia 05/09/23 08/17/23 Unknown History Physical Exam 2 Vital Signs: Vital Signs: Last Vital Signs Temp 98.5 F 08/17/23 06:10 Pulse 78 08/17/23 06:10 Resp 12 08/17/23 06:10 BP 122/65 08/17/23 06:10 Pulse Ox 95 08/17/23 06:10 O2 Del Method Room Air 08/17/23 06:10 BMI result Body Mass Index 24.2 Const: General: cooperative and no acute distress Nutritional Appearance: w ell nourished Orientation/consciousness: patient oriented x3 Limitations: no limitations HEENT: Head: Yes normocephalic and Yes atraumatic Ears: hearing grossly normal bilaterally Resp: Effort & Inspection: normal respiratory effort, no audible wheezes, no cough and no respiratory distress Cardio: Jugular venous distension: no JVD GI: Inspection: Yes normal to inspection Palpation (GI): Soft to palpation, nontender, no guarding and not rigid Percussion: Yes normal to percussion Auscultation: normal bowel sounds Skin: Other: Warm, dry, no rash Neuro: General: patient oriented x3 Extrem: General: Yes no clubbing, cyanosis or edema Results Labs 08/17/23 04:46 08/17/23 04:47 Labs: Abnormal lab results 08/16/23 08/16/23 08/17/23 Range/Units 19:49 20:02 01:58 WBC 16.0 H (4.8-10.8) X10*3/uL Hgb (14.0-18.0) g/dl Hct (42.0-52.0) % MCH 26.9 L (27.0-33.0) pg Neut % (Auto) 86.4 H (45-73) % Lymph % (Auto) 5.5 L (20-40) % Lymph # (Auto) 0.9 L (1.2-4.9) X10*3/uL Abs Immat Gran (auto) 0.06 H (0.00-0.03) X10*3/uL Absolute Neuts (auto) 13.8 H (2.0-8.3) x10*3/uL Potassium (3.3-5.1) mmol/L BUN 29 H (9-16) mg/dL POC Glucose 133 H (60-115) mg/dL Random Glucose 145 H (60-115) mg/dL Calcium 10.5 H D (8.4-10.2) mg/dL ALT 47 H (0-40) U/L Urine Protein 30 (1+) H (Neg-Trace) mg/dL Urine Glucose (UA) >=1000 H (Negative) mg/dL 08/17/23 08/17/23 Range/Units 04:46 04:47 WBC 12.2 H (4.8-10.8) X10*3/uL Hgb 13.3 L (14.0-18.0) g/dl Hct 41.4 L (42.0-52.0) % MCH (27.0-33.0) pg Neut % (Auto) 85.0 H (45-73) % Lymph % (Auto) 7.4 L (20-40) % Lymph # (Auto) 0.9 L (1.2-4.9) X10*3/uL Abs Immat Gran (auto) 0.05 H (0.00-0.03) X10*3/uL Absolute Neuts (auto) 10.4 H (2.0-8.3) x10*3/uL Potassium 3.2 L (3.3-5.1) mmol/L BUN 26 H (9-16) mg/dL POC Glucose (60-115) mg/dL Random Glucose 133 H (60-115) mg/dL Calcium (8.4-10.2) mg/dL ALT (0-40) U/L Urine Protein (Neg-Trace) mg/dL Urine Glucose (UA) (Negative) mg/dL Short CBC 08/16/23 08/17/23 Range/Units 19:49 04:46 WBC 16.0 H 12.2 H (4.8-10.8) X10*3/uL Hgb 15.0 13.3 L (14.0-18.0) g/dl Hct 47.3 41.4 L (42.0-52.0) % Plt Count 189 169 (160-400) X10*3/uL BMP 08/16/23 08/17/23 19:49 04:47 Sodium 144 142 Potassium 3.9 3.2 L Chloride 104 104 Carbon Dioxide 29 28 BUN 29 H 26 H Creatinine 1.30 1.20 Calcium 10.5 H D 9.1 D Liver Function 08/16/23 Range/Units 19:49 Total Bilirubin 0.5 (0.0-1.0) mg/dL AST 33 (5-37) U/L ALT 47 H (0-40) U/L Alkaline Phosphatase 100 (39-117) U/L Albumin 4.0 (3.5-5.0) g/dL Urine 08/16/23 Range/Units 20:02 Urine Color Yellow Urine Appearance Clear Urine pH 6.0 (5.0-9.0) Ur Specific Bivins 1.020 (1.005-1.025) Urine Protein 30 (1+) H (Neg-Trace) mg/dL Urine Glucose (UA) >=1000 H (Negative) mg/dL All other labs normal. Assessment and Plan (1) Ileus: Status: Acute (2) Nausea and vomiting: Qualifiers: Vomiting type: bilious vomiting Qualified Code(s): R11.14 - Bilious vomiting Status: Acute Plan 72-year-old male patient with multiple medical problems presenting with a recent onset of abdominal pain, nausea and vomiting. Workup revealed an elevated WBC and dilated loops of small bowel by CT with air-fluid levels. This morning the patient does feel much improved with no further nausea or vomiting. Recommended nasogastric tube clamping trial. If gastric residual is less than 100 mL patient is without abdominal pain or distention after 4 hours, would remove NG tube and start clear liquids. If however the patient's abdominal pain or nausea returns, reconnect to low intermittent suction and repeat CT abdomen and pelvis with oral contrast. Discussed with Concha Castellanos NP. Will continue to follow during this hospitalization. Procedures Date of Service Date of Service: 08/17/23
[2023-08-17 14:08] LABS: Glucose, Whole Blood 100 mg/dL (60-115)
[2023-08-17 16:52] VITALS: BP 136/77; PULSE 81; RESP 16; TEMP 36.5; O2SAT 94
--- NOTE | 2023-08-17 17:02 | PC.NURSE ---
Assumed care of this patient at 1100, R night NG tube to LIS, OP since noon ~ 300 greenish brown, patient denies N/abd pain. BS hypoactive x 4, patient endorses he is passing gas. Waiting bed assignment at this time
[2023-08-17 19:51] VITALS: BP 139/71; PULSE 77; RESP 16; TEMP 36.7; O2SAT 94
[2023-08-17 20:01] LABS: Glucose, Whole Blood 91 mg/dL (60-115)
--- NOTE | 2023-08-17 20:33 | PC.NURSE ---
Patient requesting to eat, explained to patient that because his NG tube is still draining, patient cannot eat yet. Patient and family member verbalized understanding. Patient denies pain, continues to pass gas, resting comfortably on stretcher.
--- NOTE | 2023-08-17 21:53 | PC.NURSE ---
admission report written, admitting rn notified via tiger text by Ariane Carvalho, transport notified patient is okay to go upstairs.
[2023-08-17 22:07] VITALS: BMI 25.0
[2023-08-18] MEDS: 0.9 % Sodium Chloride Flush 3 ML SYRINGE IVFLUSH ×2 (00:48→17:27)
[2023-08-18 00:57] LABS: Glucose, Whole Blood 92 mg/dL (60-115)
[2023-08-18 04:00] VITALS: BP 143/72; PULSE 60; RESP 16; TEMP 36.1; O2SAT 95
[2023-08-18 07:06] LABS: Glucose, Whole Blood 83 mg/dL (60-115)
[2023-08-18 07:16] VITALS: BP 139/77; PULSE 71; RESP 16; TEMP 36; O2SAT 95
--- NOTE | 2023-08-18 08:21 | P.PNIM_ITS ---
Subjective Subjective Date of Service: 08/18/23 Interval History: Follow up SBO Feeling better, no pain NGT clamped passing flatus Physical Exam 2 Vital Signs: Vital Signs: Last Vital Signs Temp 96.8 F 08/18/23 07:16 Pulse 71 08/18/23 07:16 Resp 16 08/18/23 07:16 BP 139/77 08/18/23 07:16 Pulse Ox 95 08/18/23 07:16 O2 Del Method Room Air 08/18/23 07:16 BMI result Body Mass Index 25.0 Appearing in no acute distress lung sounds are clear to auscultation heart regular rate rhythm, clear S1, S2 positive bowel sounds, abdomen is soft, nontender neuro patient is alert x3, no focal deficits Objective Data Active Medications Acetaminophen (Acetaminophen 325 Mg Tablet) 650 mg PO Q6H PRN PRN Reason: Pain, Mild (Pain Scale 1-3) Dextrose (Dextrose 50 % 25 Gm/50 Ml Syringe) 25 gm IVPUSH Q15M PRN; Protocol PRN Reason: per Hypoglycemia Standing Ord. Glucose (Glucose Gel 15 Gm Gel..Gram.) 15 gm PO Q15M PRN; Protocol PRN Reason: per Hypoglycemia Standing Ord. Insulin Human Lispro (Insulin Lispro 100 Unit/Ml 3 Ml Vial) 0 unit SUBCUT Q6H [facility]; Protocol Last Admin: 08/18/23 07:11 Dose: Not Given Documented By: GHADA Non-Admin Reason: poc 83 Comments: no Insulin as per scale Melatonin (Melatonin 3 Mg Tablet) 6 mg PO BEDTIME PRN PRN Reason: Insomnia Ondansetron HCl (Ondansetron Hcl 4 Mg/2 Ml Vial) 4 mg IVPUSH Q8H PRN PRN Reason: Nausea and Vomiting Sodium Chloride (0.9 % Sodium Chloride Flush 3 Ml Syringe) 3 ml IVFLUSH QSHIFT [facility] Last Admin: 08/18/23 00:48 Dose: 3 ml Documented By: GHADA Labs 08/17/23 04:46 08/18/23 08:00 Labs: Laboratory Results - last 24 hr 08/17/23 08/17/23 08/18/23 14:05 19:49 00:52 POC Glucose 100 91 92 08/18/23 07:01 POC Glucose 83 Microbiology Microbiology Results: Microbiology 08/16/23 21:26 Blood Culture - Preliminary Blood - Venous No growth after 24 hours. 08/16/23 20:59 Blood Culture - Preliminary Blood - Venous No growth after 24 hours. Assessment and Plan (1) Nausea and vomiting: Status: Acute (2) Ileus: Status: Acute Plan This is a 72-year-old male with pertinent history of CAD status post CABG, essential hypertension, mood disorder, insulin-dependent diabetes mellitus, congestive heart failure with reduced ejection fraction, gastroesophageal reflux disease who presents to the emergency department for evaluation of abdominal discomfort. Abdominal pain with intractable nausea and vomiting Imaging with multiple small bowel loops with air-fluid levels, concerning for SBO versus ileus. General surgery following>rec removing NGT after 4 hours of clamp start clear liquid diet Hypokalemia IV potassium Insulin-dependent diabetes mellitus Initiating Accu-Cheks with sliding scale insulin every 6 hours CAD status post CABG / essential hypertension Resume p.o. medications once able to take p.o. Systolic congestive heart failure No decompensation during admission Mood disorder Resume home mood stabilizers once able to take p.o. Reactive leukocytosis DVT prophylaxis: SCDs Attending Dr. Chi Full code continue hospital stay for management of possible SBO versus ileus in a patient with intractable vomiting (as above), which is not possible in a lesser acute setting. Specialist consult pending Quality Stroke Does the patient have a stroke diagnosis?: No VTE Prior VTE?: No VTE Risk Level:: Medical - moderate - high VTE Device Contraindication: Treatment Not Indicated VTE Drug Contraindication: N/A - Med Ordered
[2023-08-18 09:33] LABS: Anion Gap 13 (12-20); Blood Urea Nitrogen 24 mg/dL (9-16); Calcium 8.9 mg/dL (8.4-10.2); Carbon Dioxide 29 mmol/L (22-29); Chloride 106 mmol/L (96-108); Creatinine Clr Calc Pharmacy 50.3; Estimated Glomerular Filt Rate > 60; Glucose Random 79 mg/dL (60-115); Potassium 3.3 mmol/L (3.3-5.1); Sodium 145 mmol/L (135-145)
--- NOTE | 2023-08-18 09:43 | MHC.CM.PN ---
IMM DELIVERED. PATIENT IS FROM HOME W/ FRIEND/HCP RUBI. REPORTS HE IS INDEPENDENT W/ ADL'S AND AMBULATES W/ A CANE PRN. HAS A SERVICE PORTER THROUGH [facility] 24 HRS/WK, ASSISTS W/ HOMEMAKING AND ERRANDS. PCP AT [facility]. PT COMPLETED HCP NAMING FRIEND RUBI AGENT. DP: GOAL IS HOME RESUME SERVICE PORTER SERVICES, FRIEND TO TRANSPORT. CM WILL CONTINUE TO FOLLOW.
--- NOTE | 2023-08-18 10:48 | P.PNGS_ITS ---
Subjective Subjective Date of Service: 08/18/23 Interval history: Denies any abdominal pain, nausea or vomiting. Passing flatus. Physical Exam 2 Vital Signs: Vital Signs: Last Vital Signs Temp 96.8 F 08/18/23 07:16 Pulse 71 08/18/23 07:16 Resp 16 08/18/23 07:16 BP 139/77 08/18/23 07:16 Pulse Ox 95 08/18/23 07:16 O2 Del Method Room Air 08/18/23 07:16 BMI result Body Mass Index 25.0 Const: General: comfortable, no acute distress and alert O rientation/consciousness: patient oriented x3 Resp: Effort & Inspection: normal respiratory effort GI: Inspection: No distended Palpation (GI): Soft to palpation, nontender, no guarding and not rigid Skin: General skin exam: no rashes or lesions noted Neuro: General: patient oriented x3 and moves all extremities Objective Data Active Medications Acetaminophen (Acetaminophen 325 Mg Tablet) 650 mg PO Q6H PRN PRN Reason: Pain, Mild (Pain Scale 1-3) Dextrose (Dextrose 50 % 25 Gm/50 Ml Syringe) 25 gm IVPUSH Q15M PRN; Protocol PRN Reason: per Hypoglycemia Standing Ord. Glucose (Glucose Gel 15 Gm Gel..Gram.) 15 gm PO Q15M PRN; Protocol PRN Reason: per Hypoglycemia Standing Ord. Insulin Human Lispro (Insulin Lispro 100 Unit/Ml 3 Ml Vial) 0 unit SUBCUT Q6H [facility]; Protocol Last Admin: 08/18/23 07:11 Dose: Not Given Documented By: GHADA Non-Admin Reason: poc 83 Comments: no Insulin as per scale Melatonin (Melatonin 3 Mg Tablet) 6 mg PO BEDTIME PRN PRN Reason: Insomnia Ondansetron HCl (Ondansetron Hcl 4 Mg/2 Ml Vial) 4 mg IVPUSH Q8H PRN PRN Reason: Nausea and Vomiting Sodium Chloride (0.9 % Sodium Chloride Flush 3 Ml Syringe) 3 ml IVFLUSH QSHIFT [facility] Last Admin: 08/18/23 09:11 Dose: Not Given Documented By: QUEENIE Non-Admin Reason: Previously Administered Labs 08/17/23 04:46 08/18/23 08:00 Labs: Laboratory Results - last 24 hr 08/17/23 08/17/23 08/18/23 14:05 19:49 00:52 Anion Gap Estim Creat Clear Calc Estimated GFR POC Glucose 100 91 92 Random Glucose Calcium 08/18/23 08/18/23 07:01 08:00 Anion Gap 13 Estim Creat Clear Calc 50.3 Estimated GFR > 60 POC Glucose 83 Random Glucose 79 Calcium 8.9 Microbiology Microbiology Results: Microbiology 08/16/23 21:26 Blood Culture - Preliminary Blood - Venous No growth after 24 hours. 08/16/23 20:59 Blood Culture - Preliminary Blood - Venous No growth after 24 hours. Procedures Date of Service Date of Service: 08/18/23 Progress Note: A&P Assessment and plan (1) Small bowel obstruction: Status: Acute Plan Improved symptomatically with evidence of return of GI function. Only had around 125cc of output overnight. NGT is currently clamped. Can dc NGT, begin clear liquids and advance further as tolerated. Encouraged OOB/ambulation to promote GI function. Time Spent With Patient Time: Total time managing care of this patient today ____ minutes. Quality Stroke Does the patient have a stroke diagnosis?: No VTE Prior VTE?: No VTE Risk Level:: Medical - moderate - high VTE Device Contraindication: Treatment Not Indicated VTE Drug Contraindication: N/A - Med Ordered
[2023-08-18 11:14] LABS: Glucose, Whole Blood 84 mg/dL (60-115)
[2023-08-18 15:14] VITALS: BP 138/80; PULSE 78; RESP 18; TEMP 36.4; O2SAT 97
[2023-08-18 16:38] LABS: Glucose, Whole Blood 159 mg/dL (60-115)
[2023-08-18 20:00] VITALS: BP 135/93; PULSE 77; RESP 16; TEMP 36.4; O2SAT 97
[2023-08-19 00:18] LABS: Glucose, Whole Blood 92 mg/dL (60-115)
[2023-08-19] MEDS: 0.9 % Sodium Chloride Flush 3 ML SYRINGE IVFLUSH ×3 (01:00→17:36)
[2023-08-19 04:00] VITALS: BP 146/83; PULSE 74; RESP 16; TEMP 36.1; O2SAT 96
[2023-08-19 06:37] LABS: Glucose, Whole Blood 103 mg/dL (60-115)
[2023-08-19 07:53] VITALS: BP 141/79; PULSE 78; RESP 18; TEMP 36.7; O2SAT 97
--- NOTE | 2023-08-19 11:37 | HO.PM.IMPN ---
Subjective Subjective Date of Service: 08/19/23 Interval History: Follow up SBO Feeling better, no pain, ambulating in hallway NGT clamped passing flatus, no BM yet Physical Exam Vital Signs: Vital Signs: Last Vital Signs Temp 98.1 F 08/19/23 07:53 Pulse 78 08/19/23 07:53 Resp 18 08/19/23 07:53 BP 141/79 H 08/19/23 07:53 Pulse Ox 97 08/19/23 07:53 O2 Del Method Room Air 08/19/23 07:53 BMI result Body Mass Index 25.0 Appearing in no acute distress lung sounds are clear to auscultation heart regular rate rhythm, clear S1, S2 positive bowel sounds, abdomen is soft, nontender neuro patient is alert x3, no focal deficits Objective Data Active Medications Acetaminophen (Acetaminophen 325 Mg Tablet) 650 mg PO Q6H PRN PRN Reason: Pain, Mild (Pain Scale 1-3) Dextrose (Dextrose 50 % 25 Gm/50 Ml Syringe) 25 gm IVPUSH Q15M PRN; Protocol PRN Reason: per Hypoglycemia Standing Ord. Glucose (Glucose Gel 15 Gm Gel..Gram.) 15 gm PO Q15M PRN; Protocol PRN Reason: per Hypoglycemia Standing Ord. Insulin Human Lispro (Insulin Lispro 100 Unit/Ml 3 Ml Vial) 0 unit SUBCUT Q6H [facility]; Protocol Last Admin: 08/19/23 06:34 Dose: Not Given Documented By: GHADA Non-Admin Reason: poc 103 Melatonin (Melatonin 3 Mg Tablet) 6 mg PO BEDTIME PRN PRN Reason: Insomnia Ondansetron HCl (Ondansetron Hcl 4 Mg/2 Ml Vial) 4 mg IVPUSH Q8H PRN PRN Reason: Nausea and Vomiting Sodium Chloride (0.9 % Sodium Chloride Flush 3 Ml Syringe) [facility] Last Admin: 08/19/23 09:04 Dose: 3 ml Documented By: MONICA Labs 08/17/23 04:46 08/18/23 08:00 Labs: Laboratory Results - last 24 hr 08/18/23 08/19/23 08/19/23 16:30 00:12 06:32 POC Glucose 159 H 92 103 Microbiology Microbiology Results: Microbiology 08/16/23 21:26 Blood Culture - Preliminary Blood - Venous No growth after 48 hours. 08/16/23 20:59 Blood Culture - Preliminary Blood - Venous No growth after 48 hours. Assessment and Plan (1) Nausea and vomiting: Status: Acute (2) Ileus: Status: Acute Plan This is a 72-year-old male with pertinent history of CAD status post CABG, essential hypertension, mood disorder, insulin-dependent diabetes mellitus, congestive heart failure with reduced ejection fraction, gastroesophageal reflux disease who presents to the emergency department for evaluation of abdominal discomfort. Abdominal pain with intractable nausea and vomiting secondary to SBO. Resolved Imaging with multiple small bowel loops with air-fluid levels, concerning for SBO versus ileus. NGT removed 08/18/23 General surgery following advance diet Hypokalemia. Resolved IV potassium Insulin-dependent diabetes mellitus sliding scale CAD status post CABG / essential hypertension Resume p.o. medications once able to take p.o. Systolic congestive heart failure No decompensation during admission Mood disorder Resume home mood stabilizers once able to take p.o. Reactive leukocytosis DVT prophylaxis: SCDs Attending Dr. Chi Full code continue hospital stay for management of possible SBO versus ileus in a patient with intractable vomiting (as above), which is not possible in a lesser acute setting. Specialist consult pending Quality Stroke Does the patient have a stroke diagnosis?: No VTE Prior VTE?: No VTE Risk Level:: Medical - moderate - high VTE Device Contraindication: Treatment Not Indicated VTE Drug Contraindication: N/A - Med Ordered
[2023-08-19 12:14] LABS: Glucose, Whole Blood 142 mg/dL (60-115)
[2023-08-19 15:15] VITALS: BP 135/81; PULSE 73; RESP 18; TEMP 36.2; O2SAT 99
[2023-08-19 16:11] LABS: Glucose, Whole Blood 197 mg/dL (60-115)
[2023-08-19] MEDS: Insulin Lispro 100 UNIT/ML 3 ML VIAL SUBCUT ×2 (17:37→20:45)
[2023-08-19 19:23] VITALS: BP 140/82; PULSE 77; RESP 18; TEMP 36.6; O2SAT 98
[2023-08-19 20:24] LABS: Glucose, Whole Blood 219 mg/dL (60-115)
[2023-08-20] MEDS: Acetaminophen 325 MG TABLET 650 MG PO ×2 (00:46→13:56)
[2023-08-20] MEDS: 0.9 % Sodium Chloride Flush 3 ML SYRINGE IVFLUSH ×2 (00:48→07:55)
[2023-08-20 04:00] VITALS: BP 127/71; PULSE 81; RESP 16; TEMP 36.1; O2SAT 97
[2023-08-20 07:29] VITALS: BP 137/86; PULSE 76; RESP 18; TEMP 36.7; O2SAT 96
[2023-08-20 08:08] LABS: Glucose, Whole Blood 89 mg/dL (60-115)
[2023-08-20 11:49] LABS: Glucose, Whole Blood 179 mg/dL (60-115)
[2023-08-20] MEDS: Insulin Lispro 100 UNIT/ML 3 ML VIAL SUBCUT (12:29)
--- NOTE | 2023-08-20 13:50 | P.DS_ITS ---
DS: Providers Provider Date of Service: 08/20/23 Date of admission: 08/17/23 00:37 Primary care physician: Michelle Zhang MD Consults: 08/17/23 00:38 Consult to General Surgery Routine Consulting Provider[place] [facility] [place] Reason for consultation: SBO vs ileus DS: Diagnosis Discharge Diagnosis (1) Nausea and vomiting: Status: Acute (2) Ileus: Status: Acute DS: Summary Hospital Course Hospital Course: History and physical as per admitting provider. This is a 72-year-old male with pertinent history of CAD status post CABG, essential hypertension, mood disorder, insulin-dependent diabetes mellitus, congestive heart failure with reduced ejection fraction, gastroesophageal reflux disease who presents to the emergency department for evaluation of abdominal discomfort. He is Armenian- speaking and history was obtained with the help of placement specialist. Patient states he started having lower abdominal discomfort that started on the day of presentation. It was constant, progressive, nonradiating and without any relieving factors. It was associated with nausea and nonbloody emesis. Patient states he had about 15 episodes of vomiting on the day of presentation. No history of similar complaints in the past. He denies fever or chills. States his last bowel movement was 3 days prior to presentation. This is unusual for him and he usually has a bowel movement every day. No chest discomfort, palpitations, shortness of breath, changes in urinary habits. In the emergency department, Imaging with multiple prominent small bowel loops with air-fluid levels. General surgery was consulted who requested admission with hospital medicine team for possible SBO versus ileus. 72-year-old man treated for small-bowel obstruction. Initially had nausea and vomiting. Remained NPO for 24 hours then advanced to clear liquid diet. Patient did initially have an NG tube for gastrointestinal deep compression for 24 hours. Overnight he had multiple bowel movements. Diet was advanced to regular. Patient did well without any nausea vomiting or abdominal pain. Plan to discharge patient home to continue all of his regular medications. Diabetes mellitus. Continue home medications History of coronary artery disease and hypertension. Continue amlodipine, aspirin, statin, carvedilol, hydralazine Mental health. Continue trazodone, Remeron History of systolic congestive heart failure no decompensation during hospitalization. Time Attestation Discharge Coordination Time: 32 minutes Quality: Safe Use of Opioids Does Pt have an Active Cancer Diagnosis on the Problem List?: No Quality: Stroke Does the patient have a stroke diagnosis?: No Physical Exam Vital Signs: Vital Signs: Last Vital Signs Temp 98.1 F 08/20/23 07:29 Pulse 76 08/20/23 07:29 Resp 18 08/20/23 07:29 BP 137/86 08/20/23 07:29 Pulse Ox 96 08/20/23 07:29 O2 Del Method Room Air 08/20/23 07:29 BMI result Body Mass Index 25.0 Appearing in no acute distress head is normocephalic atraumatic eyes pupils are PERRLA sclera is anicteric mouth throat mucous membranes are intact and moist neck is supple no lymphadenopathy, no JVD noted lung sounds are clear to auscultation heart regular rate rhythm, clear S1, S2 positive bowel sounds, abdomen is soft, nontender neuro patient is alert x3, no focal deficits DS: Data Data Completed and Pending Labs on day of discharge: Laboratory Results - last 24 hr 08/19/23 08/19/23 08/20/23 16:01 19:32 07:27 POC Glucose 197 H 219 H 89 08/20/23 11:29 POC Glucose 179 H Preliminary micro results at discharge 08/16/23 21:26 Blood Culture - Preliminary Blood - Venous No growth after 48 hours. 08/16/23 20:59 Blood Culture - Preliminary Blood - Venous No growth after 48 hours. Discharge Plan Discharge Anticipated Discharge Date/Time: 08/20/23 14:00 Patient Disposition: Home, Self-Care Discharge Diagnosis: Small bowel obstruction Discharge Medications: Continued atorvastatin 80 mg tablet 80 mg PO BEDTIME Qty: 90 3RF furosemide [Lasix] 20 mg tablet 20 mg PO MOWEFR Qty: 25 5RF Rx Instructions: Take 1 tablet 3 times weekly. Extra tablet as directed if needed for increased shortness of breath or leg swelling Praluent Pen 75 mg/mL Pen Injector 75 mg SUBCUT Q14D trazodone 50 mg tablet 50 mg PO BEDTIME PRN (Reason: insomnia) (DME) pen needle, diabetic 32 gauge x 1/4 needle Qty: 100 0RF Rx Instructions: Use four times a day or as directed. amlodipine 10 mg tablet 10 mg PO BEDTIME aspirin 81 mg tablet,delayed release (DR/EC) 81 mg PO DAILY ezetimibe 10 mg tablet 10 mg PO BEDTIME hydralazine 10 mg tablet 10 mg PO TID Jardiance 25 mg tablet 25 mg PO DAILY pantoprazole 40 mg tablet,delayed release (DR/EC) 40 mg PO DAILY@0630 mirtazapine 15 mg tablet 7.5 mg PO BEDTIME carvedilol 25 mg tablet 25 mg PO BID Trulicity 0.75 mg/0.5 mL pen injector 0.75 mg subcut WE Discharge Orders: Discharge Order (Routine); Ordered 08/20/23 Ordered By: Concha Castellanos Diet: Advance to usual diet Activity on Discharge: As tolerated Stand Alone Forms: Patient Portal Discharge page Care Plan Goals: Follow bland diet for a few days Health Concerns: Small bowel obstruction nausea and vomiting Plan of Treatment: Follow-up with primary care provider as needed Take all medications as prescribed Assessment: See discharge summary
--- NOTE | 2023-08-20 14:07 | P.PNGS_ITS ---
Subjective Subjective Date of Service: 08/20/23 Patient reports: feels better and bowel movement Physical Exam 2 Vital Signs: Vital Signs: Last Vital Signs Temp 98.1 F 08/20/23 07:29 Pulse 76 08/20/23 07:29 Resp 18 08/20/23 07:29 BP 137/86 08/20/23 07:29 Pulse Ox 96 08/20/23 07:29 O2 Del Method Room Air 08/20/23 07:29 BMI result Body Mass Index 25.0 Const: General: no acute distress Resp: Effort & Inspection: normal respiratory effort, no audible wheezes, no cough and no respiratory distress GI: Palpation (GI): Soft to palpation, nontender, no guarding and not rigid Extrem: General: Yes normal to inspection Objective Data Active Medications Acetaminophen (Acetaminophen 325 Mg Tablet) 650 mg PO Q6H PRN PRN Reason: Pain, Mild (Pain Scale 1-3) Last Admin: 08/20/23 13:56 Dose: 650 mg Documented By: ZAFAR Dextrose (Dextrose 50 % 25 Gm/50 Ml Syringe) 25 gm IVPUSH Q15M PRN; Protocol PRN Reason: per Hypoglycemia Standing Ord. Glucose (Glucose Gel 15 Gm Gel..Gram.) 15 gm PO Q15M PRN; Protocol PRN Reason: per Hypoglycemia Standing Ord. Insulin Human Lispro (Insulin Lispro 100 Unit/Ml 3 Ml Vial) 0 unit SUBCUT [facility]; Protocol Last Admin: 08/20/23 12:29 Dose: 2 unit Documented By: ZAFAR Melatonin (Melatonin 3 Mg Tablet) 6 mg PO BEDTIME PRN PRN Reason: Insomnia Ondansetron HCl (Ondansetron Hcl 4 Mg/2 Ml Vial) 4 mg IVPUSH Q8H PRN PRN Reason: Nausea and Vomiting Sodium Chloride (0.9 % Sodium Chloride Flush 3 Ml Syringe) 3 ml [facility] [place] Last Admin: 08/20/23 07:55 Dose: 3 ml Documented By: ZAFAR Labs 08/17/23 04:46 08/18/23 08:00 Labs: Laboratory Results - last 24 hr 08/19/23 08/19/23 08/20/23 16:01 19:32 07:27 POC Glucose 197 H 219 H 89 08/20/23 11:29 POC Glucose 179 H Procedures Date of Service Date of Service: 08/20/23 Progress Note: A&P Assessment and plan (1) Ileus: Status: Acute (2) Nausea and vomiting: Status: Acute Plan Patient with probable ileus now much improved, moving bowels, abdomen less distended; agree with advancing diet. No surgery anticipated. Time Spent With Patient Time: Total time managing care of this patient today ____ minutes. Quality Stroke Does the patient have a stroke diagnosis?: No VTE Prior VTE?: No VTE Risk Level:: Medical - moderate - high VTE Device Contraindication: Treatment Not Indicated VTE Drug Contraindication: N/A - Med Ordered
--- NOTE | 2023-08-20 14:58 | MHC.CM.PN ---
IMM 3/4 Patient is discharged to home with resumption of LOCAL HAZMAT DRIVER services. Patient has arranged for family to provide transport home.
== END 2023-08-20 15:08 | disposition home or self-care (01) | DRG 389 ==
LOC: HO.ED 08-17 00:09 → HO.EDOVER 08-17 00:59 → HO.S3 08-17 21:02
PROVIDERS: Admitting Provider Student in an Organized Health Care Education/Training Program; Emergency Provider Emergency Medicine; PCP Family Medicine; Visit Provider Nurse Practitioner Acute Care
DX: K56.7 Ileus, unspecified (principal); I50.22 Chronic systolic (congestive) heart failure; I11.0 Hypertensive heart disease with heart failure; K56.600 Partial intestinal obstruction, unspecified as to cause; E11.9 Type 2 diabetes mellitus without complications; E87.6 Hypokalemia; I25.10 Atherosclerotic heart disease of native coronary artery without angina pectoris; F39 Unspecified mood [affective] disorder; Z95.1 Presence of aortocoronary bypass graft; Z79.82 Long term (current) use of aspirin; Z79.85 Long-term (current) use of injectable non-insulin antidiabetic drugs; Z79.899 Other long term (current) drug therapy
CPT/HCPCS: 36415; 71045; 74018; 74176; 80048; 80053; 81001; 82947; 83605; 83690; 85025; 87040; 99285; J2270; J2405; J3480

== ENCOUNTER → 2023-08-16 20:14 | Outpatient (BNV) | payer OTHER, SELFPAY | PROVIDERS: Emergency Provider Emergency Medicine; Visit Provider Student in an Organized Health Care Education/Training Program | DX: R11.14 Bilious vomiting (principal); K56.7 Ileus, unspecified; I50.20 Unspecified systolic (congestive) heart failure | CPT/HCPCS: 99222; 99232; 99239; 99499 ==

== ENCOUNTER → 2023-08-17 00:37 | Outpatient (BNV) | payer OTHER, SELFPAY | PROVIDERS: Admitting Provider Student in an Organized Health Care Education/Training Program; Emergency Provider Emergency Medicine; Visit Provider Surgery | DX: K56.7 Ileus, unspecified (principal); R11.14 Bilious vomiting | CPT/HCPCS: 99222; 99232 ==

== ENCOUNTER 2023-09-10 12:43 | Outpatient (REF) | payer OTHER, SELFPAY ==
[2023-09-10 14:12] LABS: Creatinine Urine 108.79 mg/dL; Microalbum/Creatinine Ratio Ur 319.8 ug/mg cr (<30)
[2023-09-10 14:13] LABS: Alanine Aminotransferase 25 U/L (0-40); Albumin Level 3.6 g/dL (3.5-5.0); Alkaline Phosphatase 95 U/L (39-117); Anion Gap 10 (12-20); Aspartate Amino Transferase 26 U/L (5-37); Bilirubin Total 0.4 mg/dL (0.0-1.0); Blood Urea Nitrogen 20 mg/dL (9-16); Calcium 8.8 mg/dL (8.4-10.2); Carbon Dioxide 31 mmol/L (22-29); Chloride 105 mmol/L (96-108); Cholesterol 69 mg/dL (<200); Estimated Glomerular Filt Rate 45; Glucose Random 135 mg/dL (60-115); HDL Cholesterol 40 mg/dL (>40); LDL Cholesterol Calculated 10 mg/dL (<100); Potassium 3.8 mmol/L (3.3-5.1); Sodium 142 mmol/L (135-145); Total Protein 7.1 g/dL (6.5-8.0); Triglycerides 95 mg/dL (<150)
[2023-09-10 15:03] LABS: Reflex LDLD? No
== END 2023-09-10 12:44 | disposition home or self-care (01) ==
LOC: HO.HHCL 12:43
PROVIDERS: Visit Provider Family Medicine
DX: E11.22 Type 2 diabetes mellitus with diabetic chronic kidney disease (principal); E78.5 Hyperlipidemia, unspecified; I12.9 Hypertensive chronic kidney disease with stage 1 through stage 4 chronic kidney disease, or unspecified chronic kidney disease; N18.31 Chronic kidney disease, stage 3a
CPT/HCPCS: 36415; 80053; 80061; 82043; 82570

== ENCOUNTER 2023-09-30 10:15 | Outpatient (AMB) | payer OTHER, SELFPAY ==
[2023-09-30 10:19] VITALS: BP 118/74; PULSE 68; BMI 24.5
--- NOTE | 2023-09-30 10:19 | A.OFFVIS_ITS ---
Intake Vital Signs 09/30/23 10:19 Height 5 ft 6 in Weight 152 lb 1.903 oz BMI 24.5 BP 118/74 Blood Pressure Location Lt brachial Position Sitting Pulse 68 Intake Visit Reasons: 4 month follow up Intake Note: 4 month follow-up feeling good Recording Studio Set Up Worker Required: Yes Recording Studio Set Up Worker Name: Arti cedeno Space Operations: Space Operations Present Accompanied by: Spouse Allergies No Known Allergies Allergy (Verified 08/16/23 19:30) Medication List - Last Reconciled 09/30/23 by João Interiano MD alirocumab (Praluent Pen) 75 mg subcut Q14D 90 days amlodipine 10 mg PO BEDTIME aspirin 81 mg PO DAILY atorvastatin 80 mg PO BEDTIME carvedilol 25 mg PO BID dulaglutide (Trulicity) 0.75 mg subcut WE empagliflozin (Jardiance) 25 mg PO DAILY ezetimibe 10 mg PO BEDTIME furosemide (Lasix) 20 mg PO MOWEFR PRN hydralazine 10 mg PO TID mirtazapine 7.5 mg PO BEDTIME pantoprazole 40 mg PO DAILY@0630 pen needle, diabetic Use four times a day or as directed. HPI HPI Comments History of Present Illness Details Johny comes for follow-up after recent hospitalization. He has been doing well. He is accompanied by his . History was obtained with help of ict business development manager over the telephone. Patient says he has been feeling very well. Denies any symptoms of shortness of breath, orthopnea or PND and is very active in his day-to-day life. Denies any chest pain. Denies any prolonged palpitations or fluttering in his chest. No lightheadedness, syncope. Takes all his medications. He is currently taking Lasix as need be which is appropriate at this point in time. [facility] Medical History Renal failure GERD (gastroesophageal reflux disease) Chronic renal insufficiency Hyperlipidemia Diabetes mellitus Ischemic cardiomyopathy HTN (hypertension) CAD (coronary artery disease) Surgical History (Updated 09/30/23 @ 10:49 by João Interiano MD) S/P CABG x 4 H/O colonoscopy Hx of cholecystectomy Social History Household Members: Spouse Housing: Apartment Do you presently have visiting nurse or other home services: Yes Alcohol intake: former Patient Tobacco Use Status: Never used Tobacco Second Hand Smoke Exposure: No Advance Directives Date on File: 05/09/23 service: No Review of Systems Const Denies chills, Denies fatigue, Denies fever(s), Denies frequent falls, Denies weakness, Denies weight gain and Denies weight loss ENT Denies dizziness Card Denies chest pain, Denies leg edema, Denies lightheadedness, Denies palpitations, Denies dyspnea, Denies dyspnea on exertion, Denies orthopnea and Denies other (loss of consciousness) Resp Denies cough, Denies dyspnea and Denies dyspnea on exertion GI Denies hematochezia and Denies change in stool character Musc Denies abnormal gait, Denies muscle weakness, Denies numbness, Denies radiating pain into limb and Denies tingling Neuro Denies abnormal gait, Denies dizziness, Denies frequent falls, Denies numbness, Denies tingling and Denies weakness Endo Denies fatigue and Denies palpitations Physical Exam Vital Signs: Last Vital Signs Pulse 68 09/30/23 10:19 BP 118/74 09/30/23 10:19 BMI result Body Mass Index 24.5 Const General: cooperative, comfortable, no acute distress, alert and awake Nutritional Appearance: thin Orientation/consciousness: patient oriented x3 Limitations: no limitations Neck Neck: Yes trachea midline, Yes supple and Yes no JVD Carotids: no bruits Resp Effort & Inspection: normal respiratory effort Auscultation: clear to auscultation bilaterally Cardio Jugular venous distension: no JVD Palpation: normal PMI Rate: regular rate Rhythm: abnormal rhythm with ectopic beats Heart sounds: S1 normal heart sound present, S2 normal heart sound present, no click, no gallops, no murmurs and no rubs GI Auscultation: normal bowel sounds Skin General skin exam: no rashes or lesions noted Neuro General: patient oriented x3 and no focal motor deficits Extrem General: Yes no clubbing, cyanosis or edema Psych Appearance: grossly normal Assessment & Plan Assessment & Plan (1) CAD (coronary artery disease): Code(s): I25.10 - Atherosclerotic heart disease of [place] coronary artery without angina pectoris Plan: Coronary artery disease with quadruple coronary artery bypass grafting 2016 with no current symptoms suggestive angina. Continue aggressive risk factor modification. Continue low-dose aspirin therapy. Continue high-intensity statin therapy along with ezetimibe and Praluent. Target goal LDL closer to 50 mg/dL. Check lipid panel in a week's time. Continue aggressive management of blood pressure which is currently well optimized continue diabetes management as per you with goal hemoglobin A1c less than 7%. (2) Ischemic cardiomyopathy: Comment: Severe LV systolic dysfunction prior to coronary artery bypass grafting. Post coronary artery bypass grafting normalized LV systolic function along with neurohormonal modulation Code(s): I25.5 - Ischemic cardiomyopathy Plan: Ischemic cardiomyopathy without any evidence of congestive heart failure at this point in time. Continue current neurohormonal modulation with carvedilol as well as Jardiance and spironolactone therapy. Given his renal function stabilized I would also suggest to add valsartan 40 mg daily to his regimen. Follow-up renal panel in 1 weeks time. Continue take Lasix as need be. Daily weight monitoring avoidance of salt loading was discussed. Will follow up in the clinic in 6 months time after an echocardiogram. Thank you for allowing me to partake in his care Medications: Changed From furosemide (Lasix) Take 1 tablet 3 times weekly. Extra tablet as directed if needed for increased shortness of breath or leg swelling 20 mg PO MOWEFR 25 tabs 5RF To furosemide (Lasix) Take 1 tablet 3 times weekly. Extra tablet as directed if needed for increased shortness of breath or leg swelling 20 mg PO MOWEFR PRN Coding Level of Care Code Est Pt Level 4 (81881) Diagnoses CAD (coronary artery disease) I25.10 Ischemic cardiomyopathy I25.5
== END 2023-09-30 10:44 | disposition home or self-care (01) ==
PROVIDERS: Visit Provider Internal Medicine Cardiovascular Disease
DX: I25.10 Atherosclerotic heart disease of native coronary artery without angina pectoris (principal); I25.5 Ischemic cardiomyopathy
CPT/HCPCS: 99214

== ENCOUNTER → 2023-09-30 10:15 | Outpatient (BNVA) | payer OTHER, SELFPAY | PROVIDERS: Visit Provider Internal Medicine Cardiovascular Disease | DX: I25.10 Atherosclerotic heart disease of native coronary artery without angina pectoris (principal); I25.5 Ischemic cardiomyopathy | CPT/HCPCS: 99212 ==

== ENCOUNTER 2023-10-19 09:51 | Inpatient (IN) | payer OTHER, SELFPAY ==
[2023-10-19] VITALS (11 sets, daily range): BP systolic 135–170; BP diastolic 71–100; PULSE 72–91; RESP 14–18; TEMP 36.2–37.1; O2SAT 95–98; BMI 22.7
--- NOTE | ~2023-10-19 | CT_ITS ---
EXAMINATION: CT ABDOMEN AND PELVIS WITHOUT CONTRAST CLINICAL INFORMATION: Abdominal pain. History of small bowel obstruction. COMPARISON: None available. TECHNIQUE: Multidetector volumetric imaging was performed from the superior aspect of the liver through the pubic symphysis. Sagittal and coronal reformatted images were obtained on the technologist's workstation. This CT examination was performed using dose optimization techniques as appropriate, variously including the following: *Automated exposure control *Adjustment of mA and/or kV according to patient size (this includes techniques or standardized protocols for targeted exams where dose is matched to indication/reason for exam; i.e. extremities or head) *Use of iterative reconstruction technique DLP: 474 mGy-cm FINDINGS: LUNG BASES: The visualized lung bases are clear. There are small bilateral pleural effusions, right greater than left. The heart is enlarged. There is a right cardiophrenic angle or anterior diaphragmatic lymph node unchanged. LIVER, GALLBLADDER, AND BILIARY TREE: The liver is normal in size, shape, and attenuation. No focal hepatic lesion or biliary ductal dilatation is present. The gallbladder has been removed. There is trace ascites or loculated small fluid collection and fat stranding seen adjacent to the inferior right lobe of the liver, diaphragmatic and peritoneal reflection and upper pole of the right kidney. This is unchanged from prior exams going back to December 2012. PANCREAS: Unremarkable. SPLEEN: Unremarkable. ADRENAL GLANDS: Unremarkable. KIDNEYS AND URETERS: The kidneys are normal in size, shape, and attenuation. No hydronephrosis, hydroureter, or calculi seen. Right renal cyst. No imaging follow-up recommended. No perinephric stranding. BLADDER: The prostate gland is slightly enlarged and protrudes into the base of the bladder. Bladder unremarkable. GASTROINTESTINAL TRACT: There are fluid-filled loops of small bowel. No dilated loops of small bowel to suggest obstruction seen. Stool throughout the colon. There may be a small duodenal diverticulum adjacent to the head of the pancreas. The appendix is normal. ABDOMINAL WALL: No significant hernia is appreciated. LYMPH NODES: Normal. VASCULAR: Unremarkable. PELVIC VISCERA: Enlarged prostate gland that protrudes into the base of the bladder. OSSEOUS STRUCTURES: Degenerative changes of the spine. CT/CT abdomen pelvis wo IV con IMPRESSION: Fluid-filled nondilated loops of small bowel. This probably represents an ileus. No evidence of small bowel obstruction. Small amount of loculated fluid and inflammatory change inferior to the posterior segment of the right lobe of the liver, adjacent to the posterior peritoneal and diaphragmatic reflection and abutting the upper pole of the right kidney. This is chronic appearing unchanged from old abdominal and pelvic CT scan going back to 2013. Small bilateral pleural effusions, right greater than left. Slightly enlarged prostate gland protrudes into the base of the bladder. Fleischner guidelines were followed.
--- NOTE | ~2023-10-19 | CT_ITS ---
EXAMINATION: CT ANGIOGRAM OF THE CHEST WITH AND WITHOUT CONTRAST (CT PULMONARY ANGIOGRAM FOR PE) CLINICAL INFORMATION: Reason for Exam R sided pleuritic pain COMPARISON: Previous chest x-ray most recent from earlier the same day TECHNIQUE: Prior to contrast administration, noncontrast localization images were obtained. Subsequently, multidetector volumetric imaging was performed from the thoracic inlet to below the diaphragms following the administration of 65 mL Omnipaque 350 intravenous contrast. No contrast reaction reported Sagittal, coronal, and MIP oblique sagittal reformatted images were obtained on the CT workstation, uploaded to PACS, and reviewed. This CT examination was performed using dose optimization techniques as appropriate, variously including the following: *Automated exposure control *Adjustment of mA and/or kV according to patient size (this includes techniques or standardized protocols for targeted exams where dose is matched to indication/reason for exam; i.e. extremities or head) *Use of iterative reconstruction technique Total exam dose-length product 280 mGy-cm FINDINGS: QUALITY OF STUDY/CONTRAST BOLUS: Satisfactory. PULMONARY ARTERIES: No pulmonary emboli. THORACIC AORTA: No aneurysm. LUNG: No focal consolidation, nodules or masses. Slight increased central attenuation in the lungs. Appearance questionable for mild coronary edema. Mild bronchial wall thickening in both lower lobes, right greater than left. There is subsegmental atelectasis at the right lung base and elevation of the right hemidiaphragm. There are several small lung cysts. PLEURA: Small to moderate right and small left pleural effusions. These may be partially loculated. No pneumothorax. MEDIASTINUM: Enlarged heart. Post-CABG changes. No pericardial effusion. No hilar or mediastinal lymphadenopathy. No evidence of septal bowing or right heart strain. CORONARY ARTERY CALCIFICATION: Resident. Post-CABG changes.. CHEST WALL/AXILLA: No axillary or internal mammary lymphadenopathy. OSSEOUS STRUCTURES: Median sternotomy. Degenerative changes of the thoracic spine. UPPER ABDOMEN: Unremarkable. No reflux of contrast into the hepatic veins to suggest elevated right heart pressures. CT/CT angio chest PE protocol IMPRESSION: No evidence of pulmonary embolism. Enlarged heart. Post-CABG changes. Small to moderate right and small left pleural effusions. These may be partially loculated. Slight increased central attenuation in the lungs questionable for mild pulmonary edema. Mild bilateral lower lobe bronchial wall thickening, right greater than left. Elevated right hemidiaphragm and subsegmental atelectasis at the right lung base. VTE: negative.
--- NOTE | ~2023-10-19 | XR_ITS ---
EXAMINATION: XR CHEST CLINICAL INFORMATION: Cough COMPARISON: Chest x-ray August 17, 2023 TECHNIQUE: Frontal view of the chest was obtained. FINDINGS: Stable cardiac silhouette. Patient is status post median sternotomy. No lobar consolidation. No significant pleural effusion. No pneumothorax. Interval removal of enteric tube. XR/XR chest 1V IMPRESSION: No acute pulmonary pathology.
--- NOTE | 2023-10-19 09:56 | ED.ABDPAIN ---
HPI - Abdominal Pain General Chief Complaint: General Medical Stated Complaint: Sharp Flank Pain Time Seen by Provider: 10/19/23 09:55 Source: patient, old records reviewed and interpreter and translator Mode of arrival: ambulatory Limitations: no limitations History of Present Illness HPI narrative: 72 yo male with PMH of GERD, IDDM, CAD s/p CABG, HTN, mood disorder, CHF - EF 40 to 45% , SBO here with c/o cough with brown sputum no blood noted and R low back pain associated with the cough and feels short of breath and winded. He also feels some chest tightness and chest wall pain with the cough has been happening for 3 days. No travel or sick contacts. He has no GI or symptoms MD elicited complaint: other (URI and low back/flank pain with cough) Onset (ago): day(s) (3) Pain Consistency: intermittent Location: R flank Severity: moderate Quality: aching Radiation: none Migration to: no migration Exacerbating factors: other (coughing) Relieving factors: nothing Context: other (associated with cough) Associated symptoms: chills Related Data Home Medications ?Medication ?Instructions ?Recorded ?Confirmed amlodipine 10 mg tablet 10 mg PO BEDTIME 03/08/21 09/30/23 aspirin 81 mg tablet,delayed 81 mg PO DAILY 03/08/21 09/30/23 release carvedilol 25 mg tablet 25 mg PO BID 03/08/21 09/30/23 empagliflozin 25 mg tablet 25 mg PO DAILY 03/08/21 09/30/23 (Jardiance) ezetimibe 10 mg tablet 10 mg PO BEDTIME 03/08/21 09/30/23 mirtazapine 15 mg tablet 7.5 mg PO BEDTIME 03/08/21 09/30/23 pantoprazole 40 mg tablet,delayed 40 mg PO DAILY@0630 03/08/21 09/30/23 release dulaglutide 0.75 mg/0.5 mL 0.75 mg subcut WE 03/07/22 09/30/23 subcutaneous pen injector (Trulicity) furosemide 20 mg tablet (Lasix) 20 mg PO MOWEFR PRN 09/30/23 09/30/23 Previous Rx's ?Medication ?Instructions ?Recorded pen needle, diabetic 32 gauge x #100 ea 05/11/2306/19 atorvastatin 80 mg tablet 80 mg PO BEDTIME #90 tabs 03/21/24 alirocumab 75 mg/mL subcutaneous 75 mg subcut Q14D 90 days #7 mL 09/30/23 pen injector (Praluent Pen) valsartan 40 mg tablet 40 mg PO DAILY #30 tabs 09/30/23 Allergies Allergy/AdvReac Type Severity Reaction Status Date / Time No Known Allergies Allergy Verified 10/19/23 10:05 Review of Systems Review of Systems Constitutional : No Fever, pos Chills ENT/Mouth : No Hoarseness, No sore throat, No Rhinorrhea Eyes: No Redness, No Discharge, No Vision Changes Cardiovascular : No Chest Pain, positive SOB, no Dyspnea on Exertion, No Edema Respiratory : positive Cough, pos Sputum, no Wheezing, Gastrointestinal : No Nausea, No Vomiting, No Diarrhea, No abdominal Pain Genitourinary : No Dysuria, No Hematuria Musculoskeletal : No joint pain, No Myalgias Skin : No rash Neuro : No Weakness, No Numbness, No Headache Psych : No anxiety, depression All other systems reviewed and are negative COUNTS INCLUDE 234 BEDS AT THE [facility] Past Medical History Attestation statement: The following information was validated with the patient. Source: old records reviewed Medical History Renal failure GERD (gastroesophageal reflux disease) Chronic renal insufficiency Hyperlipidemia Diabetes mellitus Ischemic cardiomyopathy HTN (hypertension) CAD (coronary artery disease) Surgical History S/P CABG x 4 H/O colonoscopy Hx of cholecystectomy Social History Social History Household Members: Spouse Housing: Apartment Do you presently have visiting nurse or other home services: Yes Alcohol intake: former Patient Tobacco Use Status: Never used Tobacco Smoked in Last 30 Days: No Second Hand Smoke Exposure: No Use of substances other than those prescribed or required for medical reasons: No Advance Directives: Yes Advance Directives on File: Yes Advance Directives Date on File: 05/09/23 Do you have a plan to hurt others: No Plan service: No Physical Exam ED Vital Signs: Vital Signs - 24 hr 10/19/23 09:57 10/19/23 10:46 10/19/23 13:12 Temperature 97.4 F 98.7 F 98.0 F Pulse Rate 88 88 73 Respiratory Rate 16 18 18 Blood Pressure 152/92 H 160/90 H 135/71 Pulse Oximetry 97 98 96 Oxygen Delivery Method Room Air Room Air Room Air BMI result Body Mass Index 22.7 Appearance: Alert. Oriented X3. No acute distress. Eyes: Pupils equal, round and reactive to light. ENT: Pharynx normal. Neck: Normal inspection. Neck supple. CVS: Normal heart rate and rhythm. Pulses normal. Respiratory: No respiratory distress. Breath sounds bases diminished no wheezes heard Abdomen: Soft and nontender. R flank mild ttp no CVA Skin: Skin warm and dry. Normal skin color. Normal skin turgor. Extremities: No lower extremity edema. No calf ttp Neuro: Oriented X 3. No motor deficit. No sensory deficit. Medical Decision Making Medical Decision Making [facility] Narrative: 72 yo male with PMH of GERD, IDDM, CAD s/p CABG, HTN, mood disorder, CHF - EF 40 to 45% , SBO here with c/o R back and flank pain with coughing - he also has cough and sputum production x 3 days denies fevers. At this time will need labs, EKG, trop x 1, CXR for pathology/effusion, CT scan for occult fracture or stone vs possible PE given the pleuritic nature. He is not a very good historian. Differential Diagnosis Differential Diagnoses: The differential diagnosis associated with the presentation includes bronchitis viral syndrome effusion weakness Admission/Observation Consideration of admission/observation: Escalation of care including admission/observation considered will admit for CHF BNP high moderate effusion no flulids given IV lasix ordered admit for CHF no PE Consult Healthcare Provider Management of the patient was discussed with: Hospitalist (will admit) Lab Data [facility] Lab Attestation statement: I reviewed the patient's lab results. 10/19/23 10:22 10/19/23 10:22 Labs: Lab Results 10/19/23 10/19/23 10/19/23 Range/Units 10:22 11:18 11:22 WBC 10.2 (4.8-10.8) X10*3/uL RBC 5.18 (4.60-5.80) X10*6/uL Hgb 14.0 (14.0-18.0) g/dl Hct 43.9 (42.0-52.0) % MCV 84.7 (80.0-98.0) fL MCH 27.0 (27.0-33.0) pg MCHC 31.9 (31.0-36.0) g/dl RDW 15.1 (11.0-16.0) % Plt Count 163 (160-400) X10*3/uL MPV 10.6 (9.4-12.4) fL Immature Gran % (Auto) 0.5 H (0.0-0.4) % Neut % (Auto) 81.3 H (45-73) % Lymph % (Auto) 7.6 L (20-40) % [place] % (Auto) 7.9 (2-11) % Eos % (Auto) 2.4 (0-4) % Baso % (Auto) 0.3 (0-2) % Lymph # (Auto) 0.8 L (1.2-4.9) X10*3/uL [place] # (Auto) 0.8 (0.1-1.2) X10*3/uL Eos # (Auto) 0.2 (0.0-0.4) X10*3/uL Baso # (Auto) 0.0 (0.0-0.2) X10*3/uL Abs Immat Gran (auto) 0.05 H (0.00-0.03) X10*3/uL Absolute Neuts (auto) 8.3 (2.0-8.3) x10*3/uL Absolute Nucleated RBC 0.000 (0.0-0.012) X10*3/uL Nucleated RBC % (auto) 0.0 (0.0-0.2) /100WBC Sodium 137 (135-145) mmol/L Potassium 4.0 (3.3-5.1) mmol/L Chloride 104 (96-108) mmol/L Carbon Dioxide 21 L (22-29) mmol/L Anion Gap 16 (12-20) BUN 23 H (9-16) mg/dL Creatinine 1.31 (0.5-1.4) mg/dL Estim Creat Clear Calc 50.2 Estimated GFR 54 Random Glucose 179 H (60-115) mg/dL Calcium 9.3 (8.4-10.2) mg/dL Magnesium 1.8 (1.6-2.6) mg/dL Total Bilirubin 0.5 (0.0-1.0) mg/dL Direct Bilirubin 0.2 (0.0-0.5) mg/dL AST 13 (5-37) U/L ALT 15 (0-40) U/L Alkaline Phosphatase 96 (39-117) U/L Troponin I High Sens 10.2 D (<3.5-35.0) ng/L B-Natriuretic Peptide 2442 H (<100) pg/mL Total Protein 7.2 (6.5-8.0) g/dL Albumin 3.6 (3.5-5.0) g/dL Lipase 33 (8-78) U/L Urine Color Yellow Urine Appearance Clear Urine pH 6.0 (5.0-9.0) Ur Specific [place] >= 1.030 H (1.005-1.025) Urine Protein 100 (2+) H (Neg-Trace) mg/dL Urine Glucose (UA) >=1000 H (Negative) mg/dL Urine Ketones Negative (Negative) mg/dL Urine Blood Negative (Negative) Urine Nitrite Negative (Negative) Ur Leukocyte Esterase Negative (Negative) Urine RBC 0-2 (0-2) /HPF Urine WBC 0-5 (0-5) /HPF Ur Squamous Epith Cells 0-2 (0-2) /HPF Urine Bacteria None Seen (None Seen) Hyaline Casts 0-2 (0-2) /LPF Influenza Type A (PCR) NEGATIVE (Negative) Influenza Type B (PCR) NEGATIVE (Negative) RSV RNA Qual (PCR) NEGATIVE (Negative) SARS-CoV-2 RNA (RT-PCR) NEGATIVE (Negative) Independent Interpretation I performed an independent interpretation of an: EKG, Plain X-Ray and CT Scan (no PE, effusions, CHF) Interpretation: Rate: 90 Rhythm: NSR with PVCs [place]: left, LVH Normal P waves. Normal ISA. Normal QRS complex. ST T wave : no GUSTABO, inverted t waves in I and aVL, slight ST depressions in V4-V6 qTC: 455 prior studies: no acute change The study has been interpreted contemporaneously by me. . Radiology Impression Discussion of test interpretation with radiology: I have reviewed the radiologist's reading. External Record Review External record reviewed: Inpatient record Medications Administered Discontinued Medications Generic Name Dose Route Start Last Admin Trade Name Freq PRN Reason Stop Dose Admin Sodium Chloride 250 mls @ 250 mls/hr 10/19/23 12:02 10/19/23 13:13 Ns IV 10/19/23 13:01 Infused .Q1H ONE Infusion Iohexol 100 ml 10/19/23 11:31 10/19/23 11:31 Iohexol 350 Mg/Ml 100 Ml Infus..Btl IV 10/19/23 11:32 65 ml ONCE ONE Administration Iohexol 100 ml 10/19/23 12:00 10/19/23 12:00 Iohexol 350 Mg/Ml 100 Ml Infus..Btl IV 10/19/23 12:01 65 ml ONCE ONE Administration Discharge Plan Discharge Clinical Impression: Pleural effusion Cough Qualifiers: Cough type: acute Qualified Code(s): R05.1 - Acute cough Acute CHF Qualifiers: Heart failure type: unspecified Qualified Code(s): I50.9 - Heart failure, unspecified Patient Disposition: Admitted As Inpatient Print Language: Portuguese
--- NOTE | 2023-10-19 09:57 | ECG_ITS ---
Test Reason : SOB Blood Pressure : / mmHG Vent. Rate : 090 BPM Atrial Rate : 090 BPM P-R Int : 194 ms QRS Dur : 102 ms QT Int : 372 ms P-R-T Axes : 049 -17 129 degrees QTc Int : 455 ms Sinus rhythm with occasional Premature ventricular complexes Possible Left atrial enlargement Left ventricular hypertrophy with repolarization abnormality ( R in aVL , [place] , [place] product ) Abnormal ECG When compared with ECG of 24-JUL-2023 07:12, Premature ventricular complexes are now Present ST no longer depressed in Anterior leads T wave inversion no longer evident in Inferior leads T wave inversion no longer evident in Anterior leads Referred By: Renu William Electronically Signed By:Javier Lira
[2023-10-19 10:28] LABS: MANUAL DIFF FLAG NO
[2023-10-19 10:39] LABS: Basophils Percent Auto 0.3 % (0-2); Eosinophils Absolute Auto 0.2 X10*3/uL (0.0-0.4); Eosinophils Percent Auto 2.4 % (0-4); Hematocrit 43.9 % (42.0-52.0); Imm Gran Abs Auto 0.05 X10*3/uL (0.00-0.03); Imm Gran Pct Auto 0.5 % (0.0-0.4); Lymphocytes Absolute Auto 0.8 X10*3/uL (1.2-4.9); Lymphocytes Percent Auto 7.6 % (20-40); Mean Corpuscular HGB Conc 31.9 g/dl (31.0-36.0); Mean Corpuscular Volume 84.7 fL (80.0-98.0); Mean Platelet Volume 10.6 fL (9.4-12.4); Monocytes Absolute Auto 0.8 X10*3/uL (0.1-1.2); Monocytes Percent Auto 7.9 % (2-11); Neutrophils Absolute Auto 8.3 x10*3/uL (2.0-8.3); Neutrophils Percent Auto 81.3 % (45-73); Platelet Count 163 X10*3/uL (160-400); Red Blood Count 5.18 X10*6/uL (4.60-5.80); Red Cell Distribution Width 15.1 % (11.0-16.0); White Blood Count 10.2 X10*3/uL (4.8-10.8)
--- NOTE | 2023-10-19 10:47 | PC.NURSE ---
Pt presents to ED from home, [place]i speaking only, certified medical assistant utilized. Reports 3 days of cough, brown phlegm, congestion and right sided pain. Pt denies any CP, SOB, fevers, trouble urinating. Pt reports pain on right side worsens with movement and breathing, 5/10, hard for pt to describe. Pt is alert and oriented, breathing even and unlabored, skin WNL. VSS.
[2023-10-19 11:09] LABS: Alanine Aminotransferase 15 U/L (0-40); Albumin Level 3.6 g/dL (3.5-5.0); Alkaline Phosphatase 96 U/L (39-117); Anion Gap 16 (12-20); Aspartate Amino Transferase 13 U/L (5-37); Bilirubin Direct 0.2 mg/dL (0.0-0.5); Bilirubin Total 0.5 mg/dL (0.0-1.0); Blood Urea Nitrogen 23 mg/dL (9-16); Calcium 9.3 mg/dL (8.4-10.2); Carbon Dioxide 21 mmol/L (22-29); Chloride 104 mmol/L (96-108); Creatinine Clr Calc Pharmacy 50.2; Estimated Glomerular Filt Rate 54; Glucose Random 179 mg/dL (60-115); Lipase 33 U/L (8-78); Magnesium 1.8 mg/dL (1.6-2.6); Sodium 137 mmol/L (135-145); Total Protein 7.2 g/dL (6.5-8.0)
[2023-10-19 11:16] LABS: Troponin-I High Sensitivity 10.2 ng/L (<3.5-35.0)
[2023-10-19 11:26] LABS: Appearance Urine Clear; Color Urine Yellow; Glucose Urine UA >=1000 mg/dL (Negative); Leukocyte Esterase Urine Negative (Negative); Nitrite Urine Negative (Negative); Specific Gravity - Urine >= 1.030 (1.005-1.025); UMIC TRIGGER UACC YES; Urine Blood Negative (Negative); Urine Ketones Negative (Negative); Urine Protein 100 (2+) mg/dL (Neg-Trace)
[2023-10-19 11:31] LABS: Bacteria Urine None Seen (None Seen); Hyaline Casts Urine 0-2 /LPF (0-2); RBC Urine 0-2 /HPF (0-2); Squamous Epithelial Cell Urine 0-2 /HPF (0-2); WBC Urine 0-5 /HPF (0-5)
[2023-10-19] MEDS: iohexoL 350 MG/ML 100 ML INFUS..BTL IV ×2 (11:31→12:00)
[2023-10-19 11:33] LABS: Influenza A PCR NEGATIVE (Negative); Influenza B PCR NEGATIVE (Negative); Resp Syncy Virus RNA Qual PCR NEGATIVE (Negative); SARS COV2 PCR INHOUSE NEGATIVE (Negative)
[2023-10-19 11:48] LABS: B Type Natriuretic Peptide 2442 pg/mL (<100)
[2023-10-19] MEDS: 0.9 % Sodium Chloride 250 ML IV (12:14)
[2023-10-19] MEDS: Furosemide 40 MG/4 ML VIAL IVPUSH (13:43)
--- NOTE | 2023-10-19 13:50 | PHA.MEDREC ---
Pharmacy Consult ? Medication Reconciliation Pharmacy has completed the medication reconciliation. Utilized pot filler services. Pt's had med list and confirmed all meds.
--- NOTE | 2023-10-19 14:27 | P.HPHOSP_ITS ---
<Statement entered by Adrian Robbins MD - 10/19/23 18:24> the patient was seen and evaluated with DELFINA Villalobos. I agree with his note, assessment and plan with the following. 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 Found to have evidence of heart failure on chest images. Admitted for further eval and treatment # Acute systolic CHF exacerbation Elevated BNP Bilateral Pleural effusions and pulmonary edema on CTA Start IV Lasix I/O, Low-salt diet Continue Spironolactone Rest of evaluations by DELFINA note. History of Present Illness Date of Service: 10/19/23 Attending physician on admission: Adrian Robbins Chief Complaint: Cough Pt is a 72-year-old [place]-speaking male with a PMH significant for? CADs/p CABG, HFrEF w/ LVEF 40-45%, cardiomyopathy, HTN, [id number] 2 diabetes, and GERD who presents to the ED for evaluation of cough and right- sided flank pain x3 days. Patient states he developed a ?strong? cough 3 days ago productive of brown and whitish sputum. Has had right-sided flank pain and chest discomfort associated with cough. Reports SOB and DUNN around baseline. Denies any lower leg edema. Also states he has been having some constipation. Last bowel movement yesterday, but notes it was hard. Previous bowel movement 2 days prior on . Denies fever, chills, nausea, vomiting, abdominal pain. No orthopnea. States cough has been so bad he has had difficulty sleeping the past 3 days. In the ED pt was hypertensive up to 160/90, vitals otherwise WNL. Labs were significant for BNP 2442 (elevated from all previous readings), otherwise grossly unremarkable and largely at baseline for patient. No leukocytosis. Stable H&H. No significant electrolyte abnormalities. Renal function around baseline. Hepatic function WNL. UA negative for UTI. Tested negative for flu, COVID, and RSV. CXR showed no acute pulmonary pathology. CTA of chest found no evidence of pulmonary embolism, but showed enlarged, small to moderate right and small left pleural effusions and possible mild pulmonary edema. CT of abd/pelvis found fluid-filled nondilated loops of small bowel likely representing ileus. No evidence of SBO. EKG demonstrated occasional PVCs but no evidence of significant ST elevations or depressions. Pt was treated with IVF and Lasix IV. Pt will be admitted to the hospital for treatment and further evaluation of acute CHF exacerbation. Review of Systems 2 Review of Systems: Cough Right flank pain and chest discomfort associated with cough Constipation SOB, DUNN baseline Denies lower leg edema No fever, chills, nausea, vomiting, abdominal pain PMFSH Medical History Renal failure GERD (gastroesophageal reflux disease) Chronic renal insufficiency Hyperlipidemia Diabetes mellitus Ischemic cardiomyopathy HTN (hypertension) CAD (coronary artery disease) Surgical History S/P CABG x 4 H/O colonoscopy Hx of cholecystectomy Social History Household Members: Spouse Housing: Apartment Do you presently have visiting nurse or other home services: Yes Alcohol intake: former Patient Tobacco Use Status: Never used Tobacco Smoked in Last 30 Days: No Second Hand Smoke Exposure: No Use of substances other than those prescribed or required for medical reasons: No Advance Directives: Yes Advance Directives on File: Yes Advance Directives Date on File: 05/09/23 Do you have a plan to hurt others: No Plan service: No Meds Allergies Allergy/AdvReac Type Severity Reaction Status Date / Time No Known Allergies Allergy Verified 10/19/23 10:05 Home Medications ?Medication ?Instructions ?Recorded ?Confirmed ?Last Taken ?Type aspirin 81 mg tablet,delayed 81 mg PO DAILY 03/08/21 10/19/23 10/19/23 09:00 History release carvedilol 25 mg tablet 25 mg PO BID 03/08/21 10/19/23 10/19/23 09:00 History empagliflozin 25 mg tablet 25 mg PO DAILY 03/08/21 10/19/23 10/19/23 09:00 History (Jardiance) ezetimibe 10 mg tablet 10 mg PO BEDTIME 03/08/21 10/19/23 Unknown History mirtazapine 15 mg tablet 7.5 mg PO BEDTIME 03/08/21 10/19/23 Unknown History pantoprazole 40 mg tablet,delayed 40 mg PO DAILY@0630 03/08/21 10/19/23 10/19/23 07:00 History release dulaglutide 0.75 mg/0.5 mL 0.75 mg subcut TH@0900 03/07/22 10/19/23 05/07/23 History subcutaneous pen injector (Trulicity) furosemide 20 mg tablet (Lasix) 20 mg PO DAILY PRN Weight Gain 09/30/23 10/19/23 Unknown History amlodipine 5 mg tablet 5 mg PO DAILY@1200 10/19/23 10/19/23 10/19/23 09:00 History docusate sodium 100 mg capsule 100 mg PO BID PRN Constipation 10/19/23 10/19/23 Unknown History spironolactone 25 mg tablet 25 mg PO BEDTIME 10/19/23 10/19/23 Unknown History trazodone 50 mg tablet 50 mg PO BEDTIME PRN insomnia 10/19/23 10/19/23 Unknown History Physical Exam 2 Vital Signs and Narrative: Vital Signs: Last Vital Signs Temp 98.0 F 10/19/23 13:12 Pulse 73 10/19/23 13:12 Resp 18 10/19/23 13:12 BP 140/87 H 10/19/23 13:43 Pulse Ox 96 10/19/23 13:12 O2 Del Method Room Air 10/19/23 13:12 BMI result Body Mass Index 22.7 General: AOx3, no acute distress Resp: Bibasilar crackles CVS: S1, S2, RRR GI: +BS, NT, no distention Skin: Warm, dry Neuro: Cranial nerves II-XII grossly intact bilaterally. Motor grossly intact bilaterally Extremities: No edema Psych: Appropriate affect Results Labs 10/19/23 10:22 10/19/23 10:22 Labs: Laboratory Results - last 24 hr 10/19/23 10/19/23 10/19/23 10:22 11:18 11:22 MCV 84.7 MCH 27.0 MCHC 31.9 RDW 15.1 Plt Count 163 MPV 10.6 Immature Gran % (Auto) 0.5 H Neut % (Auto) 81.3 H Lymph % (Auto) 7.6 L [place] % (Auto) 7.9 Eos % (Auto) 2.4 Baso % (Auto) 0.3 Lymph # (Auto) 0.8 L [place] # (Auto) 0.8 Eos # (Auto) 0.2 Baso # (Auto) 0.0 Abs Immat Gran (auto) 0.05 H Absolute Neuts (auto) 8.3 Absolute Nucleated RBC 0.000 Nucleated RBC % (auto) 0.0 Anion Gap 16 Estim Creat Clear Calc 50.2 Estimated GFR 54 Random Glucose 179 H Calcium 9.3 Magnesium 1.8 Total Bilirubin 0.5 Direct Bilirubin 0.2 AST 13 ALT 15 Alkaline Phosphatase 96 Troponin I High Sens 10.2 D B-Natriuretic Peptide 2442 H Total Protein 7.2 Albumin 3.6 Lipase 33 Urine Color Yellow Urine Appearance Clear Urine pH 6.0 Ur Specific [place] >= 1.030 H Urine Protein 100 (2+) H Urine Glucose (UA) >=1000 H Urine Ketones Negative Urine Blood Negative Urine Nitrite Negative Ur Leukocyte Esterase Negative Urine RBC 0-2 Urine WBC 0-5 Ur Squamous Epith Cells 0-2 Urine Bacteria None Seen Hyaline Casts 0-2 Influenza Type A (PCR) NEGATIVE Influenza Type B (PCR) NEGATIVE RSV RNA Qual (PCR) NEGATIVE SARS-CoV-2 RNA (RT-PCR) NEGATIVE Imaging Radiologist's Impressions: Impressions Abdomen/Pelvis CT 10/19/23 10:25 IMPRESSION: Fluid-filled nondilated loops of small bowel. This probably represents an ileus. No evidence of small bowel obstruction. Small amount of loculated fluid and inflammatory change inferior to the posterior segment of the right lobe of the liver, adjacent to the posterior peritoneal and diaphragmatic reflection and abutting the upper pole of the right kidney. This is chronic appearing unchanged from old abdominal and pelvic CT scan going back to 2012. Small bilateral pleural effusions, right greater than left. Slightly enlarged prostate gland protrudes into the base of the bladder. Fleischner guidelines were followed. Chest X-Ray 10/19/23 10:26 IMPRESSION: No acute pulmonary pathology. Chest CTA 10/19/23 11:58 IMPRESSION: No evidence of pulmonary embolism. Enlarged heart. Post-CABG changes. Small to moderate right and small left pleural effusions. These may be partially loculated. Slight increased central attenuation in the lungs questionable for mild pulmonary edema. Mild bilateral lower lobe bronchial wall thickening, right greater than left. Elevated right hemidiaphragm and subsegmental atelectasis at the right lung base. VTE: negative. Assessment and Plan (1) Acute CHF: Qualifiers: Heart failure type: unspecified Qualified Code(s): I50.9 - Heart failure, unspecified Status: Acute Plan Pt is a 72-year-old [place]-speaking male with a PMH significant for? CADs/p CABG, HFrEF w/ LVEF 40-45%, cardiomyopathy, HTN, [id number] 2 diabetes, and GERD who presents to the ED for evaluation of cough and right- sided flank pain x3 days. Pt was treated with IVF and Lasix IV. Pt will be admitted to the hospital for treatment and further evaluation of acute CHF exacerbation. Acute HFrEF exacerbation Patient with cough, pleural effusions and pulmonary edema on CTA, elevated BNP above baseline Furosemide 20 mg IV b.i.d. Follow lytes, mg, I/O Low-salt diet Continue home spironolactone Abnormal CT findings CT of abd/pelvis found fluid-filled nondilated loops of small bowel suggestive of an ileus, no evidence of SBO Also found stool throughout the colon Patient endorses constipation this past week Denies nausea, vomiting, abdominal pain Will treat with docusate mirela x2 days, MiraLax x1 dose CAD/HLD Continue aspirin, statin ezetimibe HTN Continue amlodipine, carvedilol, valsartan Mood disorder Continue mirtazapine GERD PPI Insomnia Trazodone p.r.n. Full Code Attending:?Dr. Robbins DVT Prophylaxis: Lovenox Pt will require a hospitalization of at least two nights for treatment of acute CHF exacerbation. Patient required hospitalization for administration of IV diuretics and close monitoring of labs. Quality Stroke Does the patient have a stroke diagnosis?: No VTE Prior VTE?: No VTE Risk Level:: Medical - moderate - high VTE Device Contraindication: Treatment Not Indicated VTE Drug Contraindication: N/A - Med Ordered
[2023-10-19] MEDS: 0.9 % Sodium Chloride Flush 3 ML SYRINGE IVFLUSH (16:22)
[2023-10-19] MEDS: Lactulose 20 GM/30 ML SOLUTION PO (16:22)
[2023-10-19] MEDS: Enoxaparin Sodium 40 MG/0.4 ML SYRINGE SUBCUT (17:59)
--- NOTE | 2023-10-19 19:22 | PC.NURSE ---
Assumed care of pt. Via Probation Worker, reassessed pt. Pt denies acute distress at this time, pending admission bed availability. VSS as charted.
[2023-10-19] MEDS: Atorvastatin Calcium 80 MG TABLET PO (21:55)
[2023-10-19] MEDS: carvediloL 25 MG TABLET PO (21:56)
[2023-10-19] MEDS: Mirtazapine 7.5 MG TABLET PO (21:57)
[2023-10-19] MEDS: Ezetimibe 10 MG TABLET PO (21:58)
[2023-10-19] MEDS: Spironolactone 25 MG TABLET PO (22:00)
[2023-10-19] MEDS: traZODone HCL 50 MG TABLET PO (22:10)
[2023-10-19] MEDS: guaiFENesin DM 200/20/10 ML 10 ML SYRUP PO (22:10)
[2023-10-20] VITALS (14 sets, daily range): BP systolic 119–153; BP diastolic 69–83; PULSE 70–86; RESP 16–18; TEMP 36.5–36.9; O2SAT 93–98
[2023-10-20] MEDS: Omeprazole 20 MG CAPSULE.DR PO (05:57)
[2023-10-20 06:38] LABS: Anion Gap 15 (12-20); Blood Urea Nitrogen 23 mg/dL (9-16); Calcium 8.7 mg/dL (8.4-10.2); Carbon Dioxide 24 mmol/L (22-29); Chloride 105 mmol/L (96-108); Creatinine Clr Calc Pharmacy 49.8; Estimated Glomerular Filt Rate 53; Glucose Random 119 mg/dL (60-115); Magnesium 1.8 mg/dL (1.6-2.6); Potassium 3.4 mmol/L (3.3-5.1); Sodium 141 mmol/L (135-145)
[2023-10-20 07:29] LABS: Glucose, Whole Blood 112 mg/dL (60-115)
[2023-10-20] MEDS: Empagliflozin 25 MG TABLET PO (09:11)
[2023-10-20] MEDS: Valsartan 40 MG TABLET PO (09:11)
[2023-10-20] MEDS: guaiFENesin DM 200/20/10 ML 10 ML SYRUP PO (09:11)
[2023-10-20] MEDS: Aspirin Enteric Coated 81 MG TABLET.DR PO (09:11)
[2023-10-20] MEDS: Lactulose 20 GM/30 ML SOLUTION PO (09:11)
[2023-10-20] MEDS: 0.9 % Sodium Chloride Flush 3 ML SYRINGE IVFLUSH ×3 (09:11→21:35)
[2023-10-20] MEDS: carvediloL 25 MG TABLET PO ×2 (09:12→21:33)
[2023-10-20] MEDS: Furosemide 20 MG/2 ML VIAL IVPUSH ×2 (09:38→16:46)
--- NOTE | 2023-10-20 10:09 | P.PNIM_ITS ---
Subjective Subjective Date of Service: 10/20/23 Interval History: Seen and evaluated this morning Feels better but still reporting orthopnea and PND cough improved a little only Review of Systems Review of Systems: Yes all other systems are reviewed and are negative Physical Exam 2 Vital Signs: Vital Signs: Last Vital Signs Temp 98.4 F 10/20/23 07:52 Pulse 75 10/20/23 09:12 Resp 18 10/20/23 07:52 BP 124/69 10/20/23 09:38 Pulse Ox 95 10/20/23 07:52 O2 Del Method Room Air 10/20/23 07:52 BMI result Body Mass Index 22.7 Const: Other: Constitutional : Awake, interactive, not in distress Neck : Normal inspection, Supple Cardiovascular : RRR, no JVP, no lower extremity edema Respiratory : fair bilateral air entry, basal fine crackles, decrease air entry to the basis of lungs, more on right Gastrointestinal: soft, lax, Normal bowel sounds, Non tender Skin : Warm, Dry Neurological : Alert & oriented x3, No focal deficit Objective Data Active Medications Acetaminophen (Acetaminophen 325 Mg Tablet) 650 mg PO Q6H PRN PRN Reason: Pain, Mild (Pain Scale 1-3) Amlodipine Besylate (Amlodipine Besylate 5 Mg Tablet) 5 mg PO DAILY@1200 [facility]; Protocol Aspirin (Aspirin Enteric Coated 81 Mg Tablet.) 81 mg PO DAILY [facility] Last Admin: 10/20/23 09:11 Dose: 81 mg Documented By: RICKEY Atorvastatin Calcium (Atorvastatin Calcium 80 Mg Tablet) 80 mg PO BEDTIME [facility] Last Admin: 10/19/23 21:55 Dose: 80 mg Documented By: SHERRI Carvedilol (Carvedilol 25 Mg Tablet) 25 mg PO BID [facility]; Protocol Last Admin: 10/20/23 09:12 Dose: 25 mg Documented By: RICKEY Ezetimibe (Ezetimibe 10 Mg Tablet) 10 mg PO BEDTIME [facility] Last Admin: 10/19/23 21:58 Dose: 10 mg Documented By: SHERRI Empagliflozin (Empagliflozin 25 Mg Tablet) 25 mg PO DAILY [facility] Last Admin: 10/20/23 09:11 Dose: 25 mg Documented By: RICKEY Enoxaparin Sodium (Enoxaparin Sodium 40 Mg/0.4 Ml Syringe) 40 mg SUBCUT Q24H [facility] Last Admin: 10/19/23 17:59 Dose: 40 mg Documented By: GEORGINA Furosemide (Furosemide 20 Mg/2 Ml Vial) 20 mg IVPUSH BID@0900,1800 [facility]; Protocol Last Admin: 10/20/23 09:38 Dose: 20 mg Documented By: RICKEY Guaifenesin/Dextromethorphan (Guaifenesin Dm 200/20/10 Ml 10 Ml Syrup) 10 ml PO Q4H PRN PRN Reason: Cough Last Admin: 10/20/23 09:11 Dose: 10 ml Documented By: RICKEY Insulin Human Lispro (Insulin Lispro 100 Unit/Ml 3 Ml Vial) 0 unit SUBCUT QIDACHS [facility]; Protocol Mirtazapine (Mirtazapine 7.5 Mg Tablet) 7.5 mg PO BEDTIME [facility] Last Admin: 10/19/23 21:57 Dose: 7.5 mg Documented By: SHERRI Omeprazole (Omeprazole 20 Mg Capsule.Dr) 20 mg PO DAILY@0630 [facility] Last Admin: 10/20/23 05:57 Dose: 20 mg Documented By: SHERRI Ondansetron HCl (Ondansetron Hcl 4 Mg/2 Ml Vial) 4 mg IVPUSH Q8H PRN PRN Reason: Nausea and Vomiting Sodium Chloride (0.9 % Sodium Chloride Flush 3 Ml Syringe) 3 ml IVFLUSH QSHIFT [facility] Last Admin: 10/20/23 09:11 Dose: 3 ml Documented By: RICKEY Spironolactone (Spironolactone 25 Mg Tablet) 25 mg PO BEDTIME [facility]; Protocol Last Admin: 10/19/23 22:00 Dose: 25 mg Documented By: SHERRI Trazodone HCl (Trazodone Hcl 50 Mg Tablet) 50 mg PO BEDTIME PRN PRN Reason: Insomnia Last Admin: 10/19/23 22:10 Dose: 50 mg Documented By: SHERRI Valsartan (Valsartan 40 Mg Tablet) 40 mg PO DAILY [facility]; Protocol Last Admin: 10/20/23 09:11 Dose: 40 mg Documented By: RICKEY Labs 10/19/23 10:22 10/20/23 05:53 Labs: Laboratory Results - last 24 hr 10/19/23 10/19/2310/18/24 10:22 11:18 11:22 MCV 84.7 MCH 27.0 MCHC 31.9 RDW 15.1 Plt Count 163 MPV 10.6 Immature Gran % (Auto) 0.5 H Neut % (Auto) 81.3 H Lymph % (Auto) 7.6 L [place] % (Auto) 7.9 Eos % (Auto) 2.4 Baso % (Auto) 0.3 Lymph # (Auto) 0.8 L [place] # (Auto) 0.8 Eos # (Auto) 0.2 Baso # (Auto) 0.0 Abs Immat Gran (auto) 0.05 H Absolute Neuts (auto) 8.3 Absolute Nucleated RBC 0.000 Nucleated RBC % (auto) 0.0 Anion Gap 16 Estim Creat Clear Calc 50.2 Estimated GFR 54 POC Glucose Random Glucose 179 H Calcium 9.3 Magnesium 1.8 Total Bilirubin 0.5 Direct Bilirubin 0.2 AST 13 ALT 15 Alkaline Phosphatase 96 Troponin I High Sens 10.2 D B-Natriuretic Peptide 2442 H Total Protein 7.2 Albumin 3.6 Lipase 33 Urine Color Yellow Urine Appearance Clear Urine pH 6.0 Ur Specific [place] >= 1.030 H Urine Protein 100 (2+) H Urine Glucose (UA) >=1000 H Urine Ketones Negative Urine Blood Negative Urine Nitrite Negative Ur Leukocyte Esterase Negative Urine RBC 0-2 Urine WBC 0-5 Ur Squamous Epith Cells 0-2 Urine Bacteria None Seen Hyaline Casts 0-2 Influenza Type A (PCR) NEGATIVE Influenza Type B (PCR) NEGATIVE RSV RNA Qual (PCR) NEGATIVE SARS-CoV-2 RNA (RT-PCR) NEGATIVE 10/20/23 10/20/23 05:53 07:26 MCV MCH MCHC RDW Plt Count MPV Immature Gran % (Auto) Neut % (Auto) Lymph % (Auto) [place] % (Auto) Eos % (Auto) Baso % (Auto) Lymph # (Auto) [place] # (Auto) Eos # (Auto) Baso # (Auto) Abs Immat Gran (auto) Absolute Neuts (auto) Absolute Nucleated RBC Nucleated RBC % (auto) Anion Gap 15 Estim Creat Clear Calc 49.8 Estimated GFR 53 POC Glucose 112 Random Glucose 119 H Calcium 8.7 D Magnesium 1.8 Total Bilirubin Direct Bilirubin AST ALT Alkaline Phosphatase Troponin I High Sens B-Natriuretic Peptide Total Protein Albumin Lipase Urine Color Urine Appearance Urine pH Ur Specific [place] Urine Protein Urine Glucose (UA) Urine Ketones Urine Blood Urine Nitrite Ur Leukocyte Esterase Urine RBC Urine WBC Ur Squamous Epith Cells Urine Bacteria Hyaline Casts Influenza Type A (PCR) Influenza Type B (PCR) RSV RNA Qual (PCR) SARS-CoV-2 RNA (RT-PCR) Assessment and Plan (1) Pleural effusion: Status: Acute (2) Acute CHF: Status: Acute Plan Pt is a 72-year-old Canadian-speaking male with a PMH significant for? CADs/p CABG, HFrEF w/ LVEF 40-45%, cardiomyopathy, HTN, [id number] 2 diabetes, and GERD who presents to the ED for evaluation of cough and right- sided flank pain x3 days. Pt was treated with IVF and Lasix IV. Pt will be admitted to the hospital for treatment and further evaluation of acute CHF exacerbation. Acute HFrEF exacerbation still reporting orthopnea and PND overnight Furosemide 20 mg IV b.i.d. Follow lytes, mg, I/O Low-salt diet Continue home spironolactone Abnormal CT findings CT of abd/pelvis found fluid-filled nondilated loops of small bowel suggestive of an ileus, no evidence of SBO continue Lactulose, Colace and Miralax CAD/HLD Continue aspirin, statin ezetimibe HTN Continue amlodipine, carvedilol, valsartan Mood disorder Continue mirtazapine GERD PPI Insomnia Trazodone p.r.n. Full Code DVT Prophylaxis: Lovenox Pt will require a hospitalization overnight for treatment of acute CHF exacerbation. Patient required hospitalization for administration of IV diuretics and close monitoring of labs. Quality Stroke Does the patient have a stroke diagnosis?: No VTE Prior VTE?: No VTE Risk Level:: Medical - moderate - high VTE Device Contraindication: Treatment Not Indicated VTE Drug Contraindication: N/A - Med Ordered
--- NOTE | 2023-10-20 11:07 | MHC.CM.PN ---
This typewriter repairer met with patient and assistance of interpreter deaf. Patient reports living @ home w/ friend Jordana. No services, except [employer] RN. Uses cane occasionally in the home. IMM delivered. DCP: home no services, friend to transport.
[2023-10-20] MEDS: amLODIPine Besylate 5 MG TABLET PO (11:39)
[2023-10-20] MEDS: Insulin Lispro 100 UNIT/ML 3 ML VIAL SUBCUT ×3 (11:40→21:35)
[2023-10-20 11:43] LABS: Glucose, Whole Blood 152 mg/dL (60-115)
[2023-10-20 16:41] LABS: Glucose, Whole Blood 165 mg/dL (60-115)
[2023-10-20] MEDS: Enoxaparin Sodium 40 MG/0.4 ML SYRINGE SUBCUT (16:46)
[2023-10-20 20:11] LABS: Glucose, Whole Blood 171 mg/dL (60-115)
[2023-10-20] MEDS: traZODone HCL 50 MG TABLET PO (21:33)
[2023-10-20] MEDS: Atorvastatin Calcium 80 MG TABLET PO (21:33)
[2023-10-20] MEDS: Spironolactone 25 MG TABLET PO (21:34)
[2023-10-20] MEDS: Ezetimibe 10 MG TABLET PO (21:34)
[2023-10-21] VITALS (9 sets, daily range): BP systolic 105–135; BP diastolic 64–80; PULSE 75–86; RESP 16–18; TEMP 36.8–37.3; O2SAT 95
[2023-10-21] MEDS: Omeprazole 20 MG CAPSULE.DR PO (06:04)
[2023-10-21 06:42] LABS: Anion Gap 13 (12-20); Blood Urea Nitrogen 26 mg/dL (9-16); Calcium 8.6 mg/dL (8.4-10.2); Carbon Dioxide 26 mmol/L (22-29); Chloride 102 mmol/L (96-108); Creatinine Clr Calc Pharmacy 42.7; Estimated Glomerular Filt Rate 45; Glucose Random 140 mg/dL (60-115); Magnesium 1.7 mg/dL (1.6-2.6); Potassium 3.3 mmol/L (3.3-5.1); Sodium 138 mmol/L (135-145)
[2023-10-21 06:45] LABS: B Type Natriuretic Peptide 1248 pg/mL (<100)
[2023-10-21 07:00] LABS: Glucose, Whole Blood 133 mg/dL (60-115)
[2023-10-21] MEDS: Valsartan 40 MG TABLET PO (07:21)
[2023-10-21] MEDS: carvediloL 25 MG TABLET PO (07:21)
[2023-10-21] MEDS: Empagliflozin 25 MG TABLET PO (07:21)
[2023-10-21] MEDS: Aspirin Enteric Coated 81 MG TABLET.DR PO (07:22)
[2023-10-21] MEDS: Furosemide 20 MG/2 ML VIAL IVPUSH (07:22)
[2023-10-21] MEDS: 0.9 % Sodium Chloride Flush 3 ML SYRINGE IVFLUSH (07:22)
[2023-10-21 10:51] LABS: Glucose, Whole Blood 149 mg/dL (60-115)
[2023-10-21] MEDS: amLODIPine Besylate 5 MG TABLET PO (11:22)
--- NOTE | 2023-10-21 11:50 | PM.DS ---
DS: Providers Provider Date of Service: 10/21/23 Date of admission: 10/19/23 15:12 Primary care physician: [facility] DS: Diagnosis Discharge Diagnosis (1) Pleural effusion: Status: Acute (2) Acute CHF: Status: Acute DS: Summary Hospital Course Hospital Course: Admission note Pt is a 72-year-old Macedonian-speaking male with a PMH significant for? CADs/p CABG, HFrEF w/ LVEF 40-45%, cardiomyopathy, HTN, [id number] 2 diabetes, and GERD who presents to the ED for evaluation of cough and right-sided flank pain x3 days. Patient states he developed a ?strong? cough 3 days ago productive of brown and whitish sputum. Has had right-sided flank pain and chest discomfort associated with cough. Reports SOB and DUNN around baseline. Denies any lower leg edema. Also states he has been having some constipation. Last bowel movement yesterday, but notes it was hard. Previous bowel movement 2 days prior on . Denies fever, chills, nausea, vomiting, abdominal pain. No orthopnea. States cough has been so bad he has had difficulty sleeping the past 3 days. In the ED pt was hypertensive up to 160/90, vitals otherwise WNL. Labs were significant for BNP 2442 (elevated from all previous readings), otherwise grossly unremarkable and largely at baseline for patient. No leukocytosis. Stable H&H. No significant electrolyte abnormalities. Renal function around baseline. Hepatic function WNL. UA negative for UTI. Tested negative for flu, COVID, and RSV. CXR showed no acute pulmonary pathology. CTA of chest found no evidence of pulmonary embolism, but showed enlarged, small to moderate right and small left pleural effusions and possible mild pulmonary edema. CT of abd/pelvis found fluid-filled nondilated loops of small bowel likely representing ileus. No evidence of SBO. EKG demonstrated occasional PVCs but no evidence of significant ST elevations or depressions. Pt was treated with IVF and Lasix IV. Pt will be admitted to the hospital for treatment and further evaluation of acute CHF exacerbation. Hospital course # Acute HFrEF exacerbation The patient was admitted for increase cough and reporting orthopnea and PND. CXR showed bilateral effusions with mild pulm edema. responded well to Furosemide 20 mg IV b.i.d. as he made >2L negative balance and BNP went down from over 2000 to almost 1000. To be discharged home on daily dose of Lasix 20 mg daily and to follow BMP in 1 week. To follow with PCP for further alteration of medications if needed. # Abnormal CT findings suggestive of Ileus as CT of abd/pelvis found fluid-filled nondilated loops of small bowel suggestive of an ileus, no evidence of SBO. The patient had no complaints of nausea or vomiting. was able to tolerate diet and had bowel movement while on Lactulose, Colace and Miralax. Discharge Plan Weight yourself once you get home and consider this as your dry weight Start Lasix 20 mg daily To repeat kidney function test next week record 1 week readings of blood pressure Follow with PCP for further adjustment of home medications Time Attestation Discharge Coordination Time (in mins): 38 Quality: Safe Use of Opioids Does Pt have an Active Cancer Diagnosis on the Problem List?: No Quality: Stroke Does the patient have a stroke diagnosis?: No Physical Exam Vital Signs: Vital Signs: Last Vital Signs Temp 98.5 F 10/21/23 10:56 Pulse 75 10/21/23 10:56 Resp 18 10/21/23 10:56 BP 133/80 10/21/23 11:22 Pulse Ox 95 10/21/23 10:56 O2 Del Method Room Air 10/21/23 10:56 BMI result Body Mass Index 22.7 Const: Other: Constitutional : Awake, interactive, not in distress Neck : Normal inspection, Supple Cardiovascular : RRR, no JVP, no lower extremity edema Respiratory : good bilateral air entry, no crackles, improved air entry to the basis of lungs Gastrointestinal: soft, lax, Normal bowel sounds, Non tender Skin : Warm, Dry Neurological : Alert & oriented x3, No focal deficit DS: Data Data Completed and Pending Labs on day of discharge: Laboratory Results - last 24 hr 10/20/23 10/20/23 10/21/23 16:38 20:03 06:02 Sodium 138 Potassium 3.3 Chloride 102 Carbon Dioxide 26 Anion Gap 13 BUN 26 H Creatinine 1.54 H Estim Creat Clear Calc 42.7 Estimated GFR 45 POC Glucose 165 H 171 H Random Glucose 140 H Calcium 8.6 Magnesium 1.7 B-Natriuretic Peptide 1248 H 10/21/23 10/21/23 06:53 10:45 Sodium Potassium Chloride Carbon Dioxide Anion Gap BUN Creatinine Estim Creat Clear Calc Estimated GFR POC Glucose 133 H 149 H Random Glucose Calcium Magnesium B-Natriuretic Peptide Imaging Chest x-ray: Radiologist's impression: ITS Impressions Abdomen/Pelvis CT 10/19/23 10:25 IMPRESSION: Fluid-filled nondilated loops of small bowel. This probably represents an ileus. No evidence of small bowel obstruction. Small amount of loculated fluid and inflammatory change inferior to the posterior segment of the right lobe of the liver, adjacent to the posterior peritoneal and diaphragmatic reflection and abutting the upper pole of the right kidney. This is chronic appearing unchanged from old abdominal and pelvic CT scan going back to 2012. Small bilateral pleural effusions, right greater than left. Slightly enlarged prostate gland protrudes into the base of the bladder. Fleischner guidelines were followed. Chest X-Ray 10/19/23 10:26 IMPRESSION: No acute pulmonary pathology. Chest CTA 10/19/23 11:58 IMPRESSION: No evidence of pulmonary embolism. Enlarged heart. Post-CABG changes. Small to moderate right and small left pleural effusions. These may be partially loculated. Slight increased central attenuation in the lungs questionable for mild pulmonary edema. Mild bilateral lower lobe bronchial wall thickening, right greater than left. Elevated right hemidiaphragm and subsegmental atelectasis at the right lung base. VTE: negative. Discharge Plan Discharge Anticipated Discharge Date/Time: 10/21/23 11:47 Patient Disposition: Home, Self-Care Discharge Diagnosis: Heart failure exacerbation Referrals: [place] [Primary Care Provider] - 1 Week Discharge Medications: Continued atorvastatin 80 mg tablet 80 mg PO BEDTIME Qty: 90 3RF trazodone 50 mg tablet 50 mg PO BEDTIME PRN (Reason: insomnia) amlodipine 5 mg tablet 5 mg PO DAILY@1200 spironolactone 25 mg tablet 25 mg PO BEDTIME docusate sodium 100 mg capsule 100 mg PO BID PRN (Reason: Constipation) (DME) pen needle, diabetic 32 gauge x 1/4 needle Qty: 100 0RF Rx Instructions: Use four times a day or as directed. aspirin 81 mg tablet,delayed release (DR/EC) 81 mg PO DAILY ezetimibe 10 mg tablet 10 mg PO BEDTIME Jardiance 25 mg tablet 25 mg PO DAILY pantoprazole 40 mg tablet,delayed release (DR/EC) 40 mg PO DAILY@0630 mirtazapine 15 mg tablet 7.5 mg PO BEDTIME carvedilol 25 mg tablet 25 mg PO BID Trulicity 0.75 mg/0.5 mL pen injector 0.75 mg subcut TH@0900 valsartan 40 mg tablet 40 mg PO DAILY Qty: 30 5RF Praluent Pen 75 mg/mL pen injector 75 mg SUBCUT Q14D 90 Days Qty: 7 3RF Changed furosemide [Lasix] 20 mg tablet 20 mg PO DAILY Qty: 90 0RF Rx Instructions: Take 1 tablet 3 times weekly. Extra tablet as directed if needed for increased shortness of breath or leg swelling Discharge Orders: Discharge Order (Routine); Ordered 10/21/23 Ordered By: Adrian Robbins Diet: Low salt diet Activity on Discharge: As tolerated Stand Alone Forms: Patient Portal Discharge page Print Language: Macedonian Other Ambulatory Orders: Basic Metabolic Panel (Routine) Timeframe: 1 Week Facility: [facility] - Location: Laboratory Ordered By: Adrian Robbins Care Plan Goals: Read below Health Concerns: Read below Plan of Treatment: Read below Assessment: Weight yourself once you get home and consider this as your dry weight Start Lasix 20 mg daily To repeat kidney function test next week record 1 week readings of blood pressure Follow with PCP for further adjustment of home medications
--- NOTE | 2023-10-21 14:29 | MHC.CM.PN ---
Pt has been medically cleared for DC, DC plan is home, self care, family to transport.
== END 2023-10-21 13:16 | disposition home or self-care (01) | DRG 291 ==
LOC: HO.ED 13:16 → HO.EDOVER 15:27 → HO.IMC 19:51
PROVIDERS: Admitting Provider Student in an Organized Health Care Education/Training Program; Emergency Provider Emergency Medicine; PCP Family Medicine; Visit Provider Student in an Organized Health Care Education/Training Program
DX: I11.0 Hypertensive heart disease with heart failure (principal); I50.23 Acute on chronic systolic (congestive) heart failure; K56.7 Ileus, unspecified; I25.10 Atherosclerotic heart disease of native coronary artery without angina pectoris; K21.9 Gastro-esophageal reflux disease without esophagitis; F39 Unspecified mood [affective] disorder; G47.00 Insomnia, unspecified; E78.5 Hyperlipidemia, unspecified; E11.9 Type 2 diabetes mellitus without complications; Z20.822 Contact with and (suspected) exposure to COVID-19; Z95.1 Presence of aortocoronary bypass graft; Z79.85 Long-term (current) use of injectable non-insulin antidiabetic drugs; Z79.82 Long term (current) use of aspirin; Z79.899 Other long term (current) drug therapy
CPT/HCPCS: 0241U; 36415; 71045; 71275; 74176; 80048; 80076; 81001; 82947; 83690; 83735; 83880; 84484; 85025; 93005; 97161; 99285; J1650; J1940; Q9967

== ENCOUNTER → 2023-10-19 09:57 | Outpatient (BNV) | payer OTHER, SELFPAY | PROVIDERS: Admitting Provider Student in an Organized Health Care Education/Training Program; Emergency Provider Emergency Medicine; Visit Provider Internal Medicine Cardiovascular Disease | DX: R06.02 Shortness of breath (principal); I49.3 Ventricular premature depolarization | CPT/HCPCS: 93010 ==

== ENCOUNTER → 2023-10-19 15:12 | Outpatient (BNV) | payer OTHER, SELFPAY | PROVIDERS: Admitting Provider Student in an Organized Health Care Education/Training Program; Emergency Provider Emergency Medicine; Visit Provider Student in an Organized Health Care Education/Training Program | DX: J90 Pleural effusion, not elsewhere classified (principal); I50.9 Heart failure, unspecified | CPT/HCPCS: 99223; 99232; 99239 ==

== ENCOUNTER 2023-11-05 07:46 | Outpatient (REF) | payer OTHER, SELFPAY ==
[2023-11-05 08:47] LABS: Anion Gap 13 (12-20); Blood Urea Nitrogen 27 mg/dL (9-16); Calcium 9.2 mg/dL (8.4-10.2); Carbon Dioxide 26 mmol/L (22-29); Chloride 104 mmol/L (96-108); Cholesterol 109 mg/dL (<200); Estimated Glomerular Filt Rate 41; Glucose Random 130 mg/dL (60-115); HDL Cholesterol 37 mg/dL (>40); LDL Cholesterol Calculated 52 mg/dL (<100); Potassium 3.9 mmol/L (3.3-5.1); Sodium 139 mmol/L (135-145); Triglycerides 103 mg/dL (<150)
== END 2023-11-05 07:47 | disposition home or self-care (01) ==
LOC: HO.LAB 07:46
PROVIDERS: Student in an Organized Health Care Education/Training Program; PCP Family Medicine; Visit Provider Internal Medicine Cardiovascular Disease
DX: I25.10 Atherosclerotic heart disease of native coronary artery without angina pectoris (principal); I50.9 Heart failure, unspecified
CPT/HCPCS: 36415; 80048; 80061

== ENCOUNTER 2023-11-20 10:21 | Outpatient (REF) | payer OTHER, SELFPAY ==
[2023-11-20 12:01] LABS: TSH reflex Free T4 0.64 uIU/mL (0.32-4.0)
== END 2023-11-20 10:22 | disposition home or self-care (01) ==
LOC: HO.HHCL 10:21
PROVIDERS: Visit Provider Family Medicine
DX: R00.1 Bradycardia, unspecified (principal)
CPT/HCPCS: 36415; 84443

== ENCOUNTER 2023-11-26 09:43 | Outpatient (REF) | payer OTHER, SELFPAY ==
--- NOTE | ~2023-11-26 | XR_ITS ---
EXAMINATION: XR CHEST CLINICAL INFORMATION: Acute cough. COMPARISON: CT chest dated 10/19/2023 and plain film dated 10/19/2023 TECHNIQUE: 2 views of the chest were obtained. FINDINGS: The lungs are grossly clear. No consolidations or pleural effusions. Heart and pulmonary vessels are normal. Sternal wires and mediastinal clips present. XR/XR chest 2V IMPRESSION: No active disease.
[2023-11-26 11:19] LABS: MANUAL DIFF FLAG NO
[2023-11-26 11:40] LABS: Basophils Absolute Auto 0.1 X10*3/uL (0.0-0.2); Basophils Percent Auto 0.6 % (0-2); Eosinophils Absolute Auto 0.8 X10*3/uL (0.0-0.4); Eosinophils Percent Auto 9.5 % (0-4); Hematocrit 46.7 % (42.0-52.0); Imm Gran Abs Auto 0.04 X10*3/uL (0.00-0.03); Imm Gran Pct Auto 0.5 % (0.0-0.4); Lymphocytes Absolute Auto 0.8 X10*3/uL (1.2-4.9); Lymphocytes Percent Auto 9.4 % (20-40); Mean Corpuscular HGB Conc 32.1 g/dl (31.0-36.0); Mean Corpuscular Hemoglobin 26.8 pg (27.0-33.0); Mean Corpuscular Volume 83.4 fL (80.0-98.0); Mean Platelet Volume 10.8 fL (9.4-12.4); Monocytes Absolute Auto 0.7 X10*3/uL (0.1-1.2); Monocytes Percent Auto 8.1 % (2-11); Neutrophils Percent Auto 71.9 % (45-73); Platelet Count 172 X10*3/uL (160-400); Red Cell Distribution Width 16.2 % (11.0-16.0); White Blood Count 8.3 X10*3/uL (4.8-10.8)
[2023-11-26 11:53] LABS: Anion Gap 10 (12-20); Blood Urea Nitrogen 26 mg/dL (9-16); Calcium 9.5 mg/dL (8.4-10.2); Carbon Dioxide 33 mmol/L (22-29); Chloride 100 mmol/L (96-108); Estimated Glomerular Filt Rate 41; Glucose Random 151 mg/dL (60-115); Potassium 3.7 mmol/L (3.3-5.1); Sodium 139 mmol/L (135-145)
[2023-11-26 12:14] LABS: B Type Natriuretic Peptide 881 pg/mL (<100)
== END 2023-11-26 09:44 | disposition home or self-care (01) ==
LOC: HO.HHCL 09:43
PROVIDERS: Visit Provider General Practice
DX: R05.1 Acute cough (principal)
CPT/HCPCS: 36415; 71046; 80048; 83880; 85025

== ENCOUNTER → 2023-12-01 12:21 | Outpatient (REF) | payer OTHER, SELFPAY ==
--- NOTE | 2023-12-01 12:26 | HM_ITS ---
Conclusion: 1. Patient was monitored for total period of 1 day and 23 hours 2. Baseline was normal sinus rhythm with average heart of 82 beats per minute 3. Frequent PVCs noted with total burden of 10.5% 4. Frequent episodes of nonsustained ventricular tachycardia, longest lasting 19 beats at 149 beats per minute 5. No significant pauses noted 6. No patient reported events MTDD
== END ==
LOC: HO.CARD 12:21
PROVIDERS: PCP Family Medicine; Visit Provider Family Medicine
DX: R00.1 Bradycardia, unspecified (principal)
CPT/HCPCS: 93225

== ENCOUNTER → 2023-12-01 12:26 | Outpatient (BNV) | payer OTHER, SELFPAY | PROVIDERS: PCP Family Medicine; Visit Provider Internal Medicine Cardiovascular Disease | DX: I47.29 Other ventricular tachycardia (principal); I49.3 Ventricular premature depolarization | CPT/HCPCS: 93227 ==

== ENCOUNTER 2023-12-25 12:05 | Outpatient (REF) | payer OTHER, SELFPAY ==
--- NOTE | ~2023-12-25 | XR_ITS ---
EXAMINATION: XR HIP, RIGHT CLINICAL INFORMATION: Pain for one week in right hip after lifting furniture. COMPARISON: None available. TECHNIQUE: 2 views of the right hip. FINDINGS: Diffuse demineralization. Surgical clip in the pelvis. Alignment preserved. Moderate degenerative changes in the right hip with superolateral joint space narrowing and hypertrophic change. XR/XR hip RT min 2V IMPRESSION: 1. Moderate degenerative changes in the right hip. 2. Additional imaging with CT scan or MRI should be considered for better visualization as these modalities are much more sensitive for detection of fracture or other underlying pathology.
== END 2023-12-25 12:06 | disposition home or self-care (01) ==
LOC: HO.HHCX 12:05
PROVIDERS: Visit Provider Student in an Organized Health Care Education/Training Program
DX: M25.551 Pain in right hip (principal)
CPT/HCPCS: 73502

== ENCOUNTER 2024-01-30 11:26 | Outpatient (AMB) | payer OTHER, SELFPAY ==
--- NOTE | 2024-01-30 11:46 | A.OFFVIS_ITS ---
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 Patient reports worsening right hip apin that initiated while lifting furniture. 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 pain. He describes pain radiating from his buttock down his lateral thigh into his randle. He denies groin pain. [facility] Medical History Renal failure GERD (gastroesophageal reflux disease) Chronic renal insufficiency Hyperlipidemia Diabetes mellitus Ischemic cardiomyopathy HTN (hypertension) CAD (coronary artery disease) Surgical History S/P CABG x 4 H/O colonoscopy Hx of cholecystectomy Social History Household Members: Spouse Housing: Apartment Do you presently have visiting nurse or other home services: Yes ([facility] 1/month.) Alcohol intake: former Comment: at bedside Patient Tobacco Use Status: Never used Tobacco Second Hand Smoke Exposure: No Advance Directives Date on File: 05/09/23 service: No Physical Exam Extrem Other: No pain with hip range of motion Results Reviewed Results Reviewed: I personally reviewed relevant radiographs. Mild right hip osteoarthritis Assessment & Plan Assessment & Plan (1) Lumbar radiculopathy: Code(s): M54.16 - Radiculopathy, lumbar region Category: Medical Plan: Lumbar radiculopathy. Classic symptoms. They are improving and have been present for one month. I reviewed this with him and the treatment options. He will ocontinue with basic activiuty modification and exercises. If it worsens he will contact me and I will refer him to Pain Management. Coding Level of Care Code New Pt Level 4 (70798) Diagnoses Lumbar radiculopathy M54.16
== END 2024-01-30 12:35 | disposition home or self-care (01) ==
PROVIDERS: PCP Family Medicine; Visit Provider Orthopaedic Surgery
DX: M54.16 Radiculopathy, lumbar region (principal)
CPT/HCPCS: 99203

== ENCOUNTER → 2024-01-30 11:26 | Outpatient (BNVA) | payer OTHER, SELFPAY | PROVIDERS: PCP Family Medicine; Visit Provider Orthopaedic Surgery | DX: M54.16 Radiculopathy, lumbar region (principal) | CPT/HCPCS: 99202 ==

== ENCOUNTER → 2024-02-20 12:28 | Outpatient (REF) | payer OTHER, SELFPAY ==
--- NOTE | 2024-02-20 12:35 | CA_ITS ---
Transthoracic Echocardiogram Patient (Last, First, Middle): Johny Mansfield, Gender: Male Date of : 1950 Age: 73 Procedure Date: 02/20/2024 Procedure Type: Transthoracic Echocardiogram Location: OP Height: 175.26 cm Weight: 68.04 kg BSA: 1.83 m2 Heart Rate: 59 bpm BP: 120 / 60 mmHg Bush Regenerator: HAILE Referring MD: João Interiano MD Symptoms: I25.5 - Ischemic cardiomyopathy Study Quality: Adequate ECG Rhythm: Bradycardia w frequent PVC Conclusions: - The left ventricular systolic function is moderately decreased. The calculated ejection fraction is 37% by biplane method. - The basal inferior, mid inferior, and basal inferolateral segments are akinetic. - No obvious valvular pathology seen on this study. Findings Left Ventricle Normal left ventricular cavity size. The left ventricular systolic function is moderately decreased. The calculated ejection fraction is 37% by biplane method. There is evidence of regional wall motion abnormalities. Evidence suggests grade I (mild) diastolic dysfunction. There is mild septal asymmetric hypertrophy. Wall Motion Rest Echo Findings The basal inferior, mid inferior, and basal inferolateral segments are akinetic. Right Ventricle Normal right ventricular cavity size. There is severely decreased right ventricular systolic function. Atria Both atria are normal in size. Aortic Valve There is a normal trileaflet aortic valve. There is no aortic valve stenosis. There is no aortic valve regurgitation. Mitral Valve The mitral valve appears normal. There is trace mitral valve regurgitation. There is no mitral valve stenosis. Pulmonic Valve The pulmonic valve is likely normal. Tricuspid Valve Normal tricuspid valve structure. There is trace tricuspid valve regurgitation. There is no evidence of pulmonary hypertension. Great Vessels The asc aorta is normal in size. Venous The inferior vena cava was not well visualized. Pericardium/Pleural There is no evidence of pericardial effusion. Prior Study Comparison No significant change compared to prior study dated: 02/28/2023. Recommendations, Care & Conclusions No obvious valvular pathology seen on this study. Measurements 2D Linear Measurements IVSd: 1.15 0.6-0.9/0.6-1.0 cm LVIDd: 5.74 3.9-5.3/4.2-5.9 cm LVIDd Index: 3.14 2.4-3.2/2.2-3.1 cm/m2 LVIDs: 4.47 2.0-3.6 cm LVPWd: 0.67 0.7-1.1 cm LA Diam: 4.30 2.7-3.8/3.0-4.0 cm LAIDs Index: 2.35 1.5-2.3 cm/m2 LV Mass: 252.15 67-162/88-224 g LV Mass Index: 137.78 43-95/49-115 g/m2 LVOT Diam: 2.20 3.0+(-)1.3 cm 2D Systolic Function EF 4C: 34.20 >55% EF 2C: 38.80 >55% EF BiP: 36.90 >55% Mitral Valve MV Pk E: 0.41 MV PK A: 0.65 MV Decel Time: 300.00 E/A: 0.60 E'Lateral: 5.87 E'Medial: 3.05 E/E' Med: 13.50 E/E' Lat: 7.00 PHT: 88.00 MVA PHT: 2.50 Decel Lassen: 1.37 Aortic Valve AoV Pk Dawson: 1.74 AoV Mn Dawson: 1.24 AoV VTI: 0.33 AoV Pk Grad: 12.00 Aov Mn Grad: 7.00 WHITNEY Cont.VTI: 1.58 LVOT LVOT Pk Dawson: 0.72 LVOT Mn Dawson: 0.50 LVOT VTI: 0.14 LVOT Pk Grad: 2.00 LVOT Mn Grad: 1.00 LVOT Diam: 2.20 LVOT Area: 3.80 Diastolic Function MV Pk E: 0.41 MV Pk A: 0.65 E/A: 0.60 E'Medial: 3.05 E/E' Med: 13.50 E' Laterial: 5.87 E/E' Lat: 7.00 Right Ventricle TAPSE (mm): 7.30 TVS' Dawson: 5.66 Tricuspid Valve TR Pk Dawson: 1.95 TR Pk Grad: 15.00 RA Press: 3.00 RVSP: 18.00 Great Vessels Aorta Sinus of Valsalva: 2.80 2.0-3.5 cm Ao Asc: 3.40 2.1-3.4 cm Pulmonary Valve PV Pk Dawson: 0.76 Peak PV Grad: 2.00 Updated in Other Vendor System with Status of Final Alvaro Arellano MD electronically signed on 02/22/2024 10:45:10 AM with status of Final
== END ==
LOC: HO.CARD 12:28
PROVIDERS: PCP Family Medicine; Visit Provider Internal Medicine Cardiovascular Disease
DX: I25.5 Ischemic cardiomyopathy (principal)
CPT/HCPCS: 93306

== ENCOUNTER → 2024-02-20 12:35 | Outpatient (BNV) | payer OTHER, SELFPAY | PROVIDERS: PCP Family Medicine; Visit Provider Internal Medicine | DX: I42.2 Other hypertrophic cardiomyopathy (principal); I51.89 Other ill-defined heart diseases | CPT/HCPCS: 93306 ==

== ENCOUNTER 2024-03-11 13:33 | Outpatient (AMB) | payer OTHER, SELFPAY ==
--- NOTE | 2024-03-11 13:36 | A.OFFVIS_ITS ---
Vital Signs 03/11/24 13:37 Height 5 ft 6 in Weight 154 lb 5.177 oz BMI 24.9 BP 130/80 Blood Pressure Location Lt brachial Position Sitting Pulse 79 Intake Visit Reasons: follow-up after echo Intake Note: Follow-up after echo feeling good Psychiatric Aide Instructor Required: Yes Psychiatric Aide Instructor Name: wilian Reddy Allergies No Known Allergies Allergy (Verified 01/30/24 11:54) Medication List - Last Reconciled 03/11/24 by João Interiano MD alirocumab (Praluent Pen) 75 mg subcut Q14D 90 days amlodipine 5 mg PO DAILY@1200 aspirin 81 mg PO DAILY atorvastatin 80 mg PO BEDTIME carvedilol 25 mg PO BID docusate sodium 100 mg PO BID PRN dulaglutide (Trulicity) 0.75 mg subcut TH@0900 empagliflozin (Jardiance) 25 mg PO DAILY ezetimibe 10 mg PO BEDTIME furosemide 20 mg See Protocol PO DAILY mirtazapine 7.5 mg PO BEDTIME pantoprazole 40 mg PO DAILY@0630 pen needle, diabetic Use four times a day or as directed. spironolactone 25 mg PO BEDTIME trazodone 50 mg PO BEDTIME PRN valsartan 40 mg PO DAILY 90 days HPI Comments Details: Johny comes for follow-up. History was obtained with help of actuarial intern over the telephone. Patient was admitted in October with noncardiac symptoms of flank pain but subsequently was diagnose with heart failure BNP in the 2000 range with symptoms of cough and orthopnea. He was then diuresed. Subsequently BNP had improved to in the 1000 range. He was then discharged home with medical therapy. No cardiology consult was sought at that point time. Patient since then now he says he is extremely functional. He walks for 2 hours and also does biking at home without any symptoms. Denies any exertional chest pain or shortness of breath. Echocardiogram done recently follow-up from hospitalization showed further reduction LV ejection fraction to 37% with wall motion abnormality consistent with ischemic cardiomyopathy. Patient takes all his medications. Denies any orthopnea, PND, leg edema. No weight gain. No lightheadedness, syncope. [facility] Medical History (Updated 03/11/24 @ 14:10 by João Interiano MD) Hospital discharge follow-up Heart failure with reduced ejection fraction Renal failure GERD (gastroesophageal reflux disease) Chronic renal insufficiency Hyperlipidemia Diabetes mellitus Ischemic cardiomyopathy HTN (hypertension) CAD (coronary artery disease) Surgical History S/P CABG x 4 H/O colonoscopy Hx of cholecystectomy Social History Household Members: Spouse Housing: Apartment Do you presently have visiting nurse or other home services: Yes ([facility] 1/month.) Alcohol intake: former Comment: at bedside Patient Tobacco Use Status: Never used Tobacco Second Hand Smoke Exposure: No Advance Directives Date on File: 05/09/23 service: No Review of Systems Const Denies chills, Denies fatigue, Denies fever(s), Denies frequent falls, Denies weakness, Denies weight gain and Denies weight loss ENT Denies dizziness Card Denies chest pain, Denies leg edema, Denies lightheadedness, Denies palpitations, Denies dyspnea, Denies dyspnea on exertion, Denies orthopnea and Denies other (loss of consciousness) Resp Denies cough, Denies dyspnea and Denies dyspnea on exertion GI Denies hematochezia and Denies change in stool character Musc Denies abnormal gait, Denies muscle weakness, Denies numbness, Denies radiating pain into limb and Denies tingling Neuro Denies abnormal gait, Denies dizziness, Denies frequent falls, Denies numbness, Denies tingling and Denies weakness Endo Denies fatigue and Denies palpitations Physical Exam Vital Signs: Last Vital Signs Pulse 79 03/11/24 13:37 BP 130/80 03/11/24 13:37 BMI result Body Mass Index 24.9 Const General: cooperative, comfortable, no acute distress, alert, awake and well groomed Nutritional Appearance: average body habitus and thin Orientation/consciousness: patient oriented x3 Limitations: no limitations Neck Neck: Yes trachea midline, Yes supple and Yes no JVD Carotids: no bruits Resp Effort & Inspection: normal respiratory effort Auscultation: clear to auscultation bilaterally Cardio Jugular venous distension: no JVD Palpation: normal PMI Rate: regular rate Rhythm: abnormal rhythm with ectopic beats Heart sounds: S1 normal heart sound present, S2 normal heart sound present, no click, no gallops, no murmurs and no rubs GI Auscultation: normal bowel sounds Skin General skin exam: no rashes or lesions noted Neuro General: patient oriented x3 and no focal motor deficits Extrem General: Yes no clubbing, cyanosis or edema Psych Appearance: grossly normal Office Procedures EKG Details: EKG shows normal sinus rhythm with LVH with repolarization abnormality or diffuse ST T wave changes which could represent ischemia. [id number], Complete Assessment & Plan Assessment & Plan (1) Heart failure with reduced ejection fraction: Code(s): I50.20 - Unspecified systolic (congestive) heart failure Category: Medical Plan: Heart failure with reduced ejection fraction with further worsening of LV ejection fraction 37% with hospitalization with decompensated congestive heart failure in October. This is concerning. Myocardial ischemia and graft failure needs to be evaluated for. Currently on neurohormonal modulation with carvedilol, Jardiance as well as spironolactone therapy. He is also on valsartan therapy. He has remained blood pressure why stable. I would suggest to switch his valsartan to Entresto therapy for better outcomes. Follow-up blood pressure check and blood work in 1 weeks time. Will further uptitrate med ications as tolerated. Management of heart failure was discussed. Continue current diuretic regimen. Daily weight monitoring avoidance of salt loading was discussed. He understands management well. Continue maintain activity level as tolerated. Advised to call me with worsening symptoms. (2) CAD (coronary artery disease): Code(s): I25.10 - Atherosclerotic heart disease of [place] coronary artery without angina pectoris Category: Medical Plan: CAD status post coronary artery bypass grafting with recent reduction LV ejection fraction is concerning for possible graft closure. Will suggest exercise myocardial perfusion imaging to further assess for the same. Meanwhile continue low-dose aspirin therapy for life. Continue aggressive risk factor modification, currently on high-intensity statin therapy as well as Praluent therapy. Target goal LDL closer to 50 mg/dL. Continue aggressive diabetes management goal hemoglobin A1c less than 7%. Further treatment based on the findings of stress test. Will follow up in the clinic in 2 months time, sooner p.r.n.. Thank you for allowing me to partake in his care Orders: Orders NM cardiolite stress test 2 Weeks I25.5 - Ischemic cardiomyopathy Basic Metabolic Panel 1 Week I25.5 - Ischemic cardiomyopathy CA stress test Today I25.5 - Ischemic cardiomyopathy B Type Natriuretic Peptide 1 Week I25.5 - Ischemic cardiomyopathy Medications: New sacubitril-valsartan 24-26 mg (Entresto) 1 tab PO BID 60 tabs 3RF Discontinued valsartan Discontinued Reason: Doctor's Order 40 mg PO DAILY 90 days 90 tabs 3RF I25.10 - Atherosclerotic heart disease of [place] coronary artery without angina pectoris Coding Level of Care Code Est Pt Level 4 (59792) Diagnoses Heart failure with reduced ejection fraction I50.20 CAD (coronary artery disease) I25.10 CPT Codes EKG - CPT: 03601-[id number], Complete ([id number])
[2024-03-11 13:37] VITALS: BP 130/80; PULSE 79; BMI 24.9
== END 2024-03-11 14:04 | disposition home or self-care (01) ==
PROVIDERS: PCP Family Medicine; Visit Provider Internal Medicine Cardiovascular Disease
DX: I50.20 Unspecified systolic (congestive) heart failure (principal); I25.10 Atherosclerotic heart disease of native coronary artery without angina pectoris
CPT/HCPCS: 93010; 99214

== ENCOUNTER → 2024-03-11 13:33 | Outpatient (BNVA) | payer OTHER, SELFPAY | PROVIDERS: PCP Family Medicine; Visit Provider Internal Medicine Cardiovascular Disease | DX: I50.20 Unspecified systolic (congestive) heart failure (principal); I25.10 Atherosclerotic heart disease of native coronary artery without angina pectoris; I25.5 Ischemic cardiomyopathy | CPT/HCPCS: 93005; 99212 ==

== ENCOUNTER → 2024-03-18 09:43 | Outpatient (BNVA) | payer OTHER, SELFPAY | PROVIDERS: PCP Family Medicine; Visit Provider Internal Medicine Cardiovascular Disease ==

== ENCOUNTER 2024-04-02 09:23 | Outpatient (REF) | payer OTHER, SELFPAY ==
--- NOTE | 2024-04-02 | EMG_ITS ---
Chief complaint: Bilateral leg pain and feet numbness, history of diabetes and CKD Reason for referral: Evaluate for neuropathy Referred by: Dr. Zhang Procedure done: Bilateral lower extremity NCS/EMG Precautions and/or limitations: None The limb temperature was monitored continuously and remained between 32-36 degrees C during the performance of the NCS. Nerve Conduction Studies Anti Sensory Summary Table ?Stim Site NR Onset (ms) Norm Onset (ms) Peak (ms) Norm Peak (ms) O-P Amp (?V) Norm O-P Amp Site1 Site2 Delta-0 (ms) Dist (cm) Dawson (m/s) Norm Dawson (m/s) Left Sural Anti Sensory (Lat Mall) Calf NR <4.0 >5.0 Calf Lat Mall 14.0 Right Sural Anti Sensory (Lat Mall) Calf NR <4.0 >5.0 Calf Lat Mall 14.0 Motor Summary Table ?Stim Site NR Onset (ms) Norm Onset (ms) O-P Amp (mV) Norm O-P Amp iAmp (mV) Amp (1st) (%) Site1 Site2 Delta-0 (ms) Dist (cm) Dawson (m/s) Norm Dawson (m/s) Right Peroneal Motor (Ext Dig Brev) Ankle ? 6.3 <4.0 1.9 >2.5 1.9 100.0 Ankle Ext Dig Brev 6.3 0.0 B Fib ? 15.2 1.2 1.4 63.2 B Fib Ankle 8.9 31.5 35 >40 Poplt ? 16.6 1.5 1.6 78.9 Poplt B Fib 1.4 7.0 50 >40 Left Tibial Motor (Abd Mcfadden Brev) Ankle ? 4.0 <5 13.0 >2.5 18.6 100.0 Ankle Abd Mcfadden Brev 4.0 0.0 Knee ? 17.5 8.9 12.3 68.5 Knee Ankle 13.5 41.0 30 >40 Right Tibial Motor (Abd Mcfadden Brev) Ankle ? 4.1 <5 13.1 >2.5 18.5 100.0 Ankle Abd Mcfadden Brev 4.1 0.0 Knee ? 15.2 6.2 8.3 47.3 Knee Ankle 11.1 43.0 39 >40 EMG ?Side Muscle Nerve Root Ins Act Fibs Psw Amp Dur Poly Recrt Int Pat Comment Right AbdHallucis MedPlantar S1-2 Nml Nml Nml Nml Nml 0 Nml Complete Right AntTibialis Dp Br Peron L4-5 Nml Nml Nml Nml Nml 0 Nml Complete Right PostTibialis Tibial L5, S1 Nml Nml Nml Nml Nml 0 Nml Complete Right MedGastroc Tibial S1-2 Nml Nml Nml Nml Nml 0 Nml Complete Right VastusMed Femoral L2-4 Nml Nml Nml Nml Nml 0 Nml Complete Left AbdHallucis MedPlantar S1-2 Nml Nml Nml Nml Nml 0 Nml Complete Left AntTibialis Dp Br Peron L4-5 Nml Nml Nml Nml Nml 0 Nml Complete Left PostTibialis Tibial L5, S1 Nml Nml Nml Nml Nml 0 Nml Complete Left MedGastroc Tibial S1-2 Nml Nml Nml Nml Nml 0 Nml Complete Left VastusMed Femoral L2-4 Nml Nml Nml Nml Nml 0 Nml Complete FINDINGS: Right peroneal nerve showed prolonged distal latency, small amplitude and slow conduction velocity distally. No conduction block across fibular neck. Bilateral tibial nerves showed normal distal latency, normal amplitude and slow conduction velocity. Bilateral sural nerves showed no response. Concentric needle EMG was performed in selected muscles of the bilateral lower extremity. Study did not reveal signs of electric abnormalities as shown in the table above. IMPRESSION: 1. This is an abnormal study. 2. 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 3. There is no electrodiagnostic evidence for lumbosacral plexopathy or lumbar radiculopathy. Thank you for your kind referral. Irina Pascal MD, GEORGE Board Certified, [place] Board [employer] Physical Medicine and Rehabilitation (ABPMR) Board Certified, [place] Board of Electrodiagnostic Medicine (ABEM) CODIN 55903 x 2 MTDD
== END 2024-04-02 09:24 | disposition home or self-care (01) ==
LOC: HO.NEURO 09:23
PROVIDERS: PCP Family Medicine; Visit Provider Family Medicine
DX: M79.604 Pain in right leg (principal); M79.605 Pain in left leg
CPT/HCPCS: 95886; 95909

== ENCOUNTER → 2024-04-02 09:30 | Outpatient (BNV) | payer OTHER, SELFPAY | PROVIDERS: PCP Family Medicine; Visit Provider Physical Medicine & Rehabilitation | DX: G62.89 Other specified polyneuropathies (principal) | CPT/HCPCS: 95886; 95909 ==

== ENCOUNTER 2024-06-10 13:16 | Outpatient (REF) | payer OTHER, SELFPAY | END 2024-06-10 13:17 | disposition home or self-care (01) | LOC: HO.US 13:16 | PROVIDERS: PCP Family Medicine; Visit Provider Family Medicine | DX: I73.9 Peripheral vascular disease, unspecified (principal); M79.604 Pain in right leg; M79.605 Pain in left leg | CPT/HCPCS: 93925 ==

== ENCOUNTER 2024-07-29 09:48 | Outpatient (AMB) | payer OTHER, SELFPAY ==
--- NOTE | 2024-07-29 09:48 | A.OFFVIS_ITS ---
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 No complaints. 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 Reports that his original complaint began when we walking in on the balls of his feet. On a regular day he remains quite active and can walk several blocks with no difficulty. He is a nonsmoker. He does have a longstanding history of diabetes that started near the age of 56 it has been going on for nearly 24 years. He does have a prior history of CABG as well. He is being maintained on aspirin and high-dose statin. He now presents for vascular follow-up. Of note he did have noninvasive testing by his primary care team. PENDING SALE TO [facility] Medical History Hospital discharge follow-up Heart failure with reduced ejection fraction Renal failure GERD (gastroesophageal reflux disease) Chronic renal insufficiency Hyperlipidemia Diabetes mellitus Ischemic cardiomyopathy HTN (hypertension) CAD (coronary artery disease) Surgical History S/P CABG x 4 H/O colonoscopy Hx of cholecystectomy Social History Household Members: Spouse Housing: Apartment Do you presently have visiting nurse or other home services: Yes ([facility] 1/month.) Alcohol intake: former Comment: at bedside Patient Tobacco Use Status: Never used Tobacco Second Hand Smoke Exposure: No Advance Directives Date on File: 05/09/23 service: No Review of Systems Const All systems reviewed & are unremarkable except as noted in HPI and below Reports no additional complaints ENT Reports Normal hearing present Card Denies chest pain, Denies chest pain at rest, Denies chest pain with activity and Denies pedal edema Resp Denies cough GI Denies abdominal pain Musc Denies abnormal gait, Denies muscle cramps and Denies radiating pain into limb Skin/Breast Denies skin ulcer and Denies wounds Neuro Reports Normal hearing present and Denies abnormal gait Psych Reports no additional complaints Physical Exam Const General: cooperative, healthy appearing and comfortable Orientation/consciousness: oriented to person, oriented to place and oriented to time HEENT Head: Yes normal to inspection Neck Neck: Yes normal visual inspection Carotids: no bruits Chest Chest palpation & inspection: normal inspection of the chest Resp Effort & Inspection: normal respiratory effort and able to speak in complete sentences Auscultation: clear to auscultation bilaterally, no crackles, no rales, no rhonchi and no wheezes Cardio Rate: regular rate Rhythm: regular rhythm Heart sounds: S1 normal heart sound present and S2 normal heart sound present Bruits: no carotid bruits Peripheral pulses: Peripheral pulses 2+ throughout GI Inspection: Yes normal to inspection Skin Wounds: no wounds Hair: normal Neuro General: oriented to person, oriented to place and oriented to time Cranial nerves: Yes CN's II-XII intact bilaterally and Yes Normal hearing present Cognition (Neuro): normal cognition Motor exam (neuro): 5/5 motor strength present throughout Extrem Other: venous exam: No significant superficial varicosities or spider telangiectasias, minimal edema General: No clubbing, No cyanosis and No edema Psych Appearance: grossly normal Mental Status: mental status grossly normal Speech and movement: Normal speech and movement present Results Reviewed Results Reviewed: Noninvasive arterial testing dated 06/10/2024 demonstrates good waveforms down bilateral lower extremities. There is concern of some mild SFA disease bilaterally. Written report and images were reviewed. Assessment & Plan Assessment & Plan (1) PAD (peripheral artery disease): Code(s): I73.9 - Peripheral vascular disease, unspecified Category: Medical Plan: In short patient has stable claudication. I do believe some of his pain and discomfort may be more neuropathic in nature along with musculoskeletal as it is on the plantar surface of his foot. I did review the pathophysiology of peripheral vascular disease with the patient. In addition we did discuss routine conservative measures including a healthy diet and the importance of exercise and ambulation. We did discuss risk factor modification. The patient will continue to to follow-up with surveillance follow-up in approximately 1 year. Thank you for allowing us to participate in this patient's care. If there are any questions or concerns please do not hesitate to contact us. Orders: Orders US arterial duplex LE BI 1 Year I73.9 - Peripheral vascular disease, unspecified Coding Level of Care Code New Pt Level 4 (13317) Complex EM visit Add On G2211 Diagnoses PAD (peripheral artery disease) I73.9
--- OUTSIDE RECORDS SUMMARY | 2024-07-29 10:18 | XMS_ITS | Clinical Summary ---
Author Organization [facility], Address [address] [place] [address] [place] [address] Phone Care Team Providers Care Day Camp Unit Leader Name Role Phone Michelle Zhang MD Primary Care Provider [phone] Allergies No known active allergies Medications aspirin 81 MG tablet Take 81 mg by mouth 1 (one) time each day Active atorvastatin (LIPITOR) 80 MG tablet Take 80 mg by mouth 1 (one) time each day Active ezetimibe (ZETIA) 10 MG tablet Take 10 mg by mouth 1 (one) time each day Active HYDROcodone-pam atropine (HYCODAN) 5-1.5 MG/5ML syrup Take 5 mL by mouth every 6 (six) hours if needed Active metFORMIN (GLUCOPHAGE) 1000 MG tablet Take 1,000 mg by mouth 2 (two) times a day with meals Active mirtazapine (REMERON) 15 MG tablet Take 7.5 mg by mouth every night Active pantoprazole (PROTONIX) 40 MG EC tablet Take 40 mg by mouth 1 (one) time each day Active Nutritional Supplements (GLUCERNA PO) Drink 2-3 cans daily Active Empagliflozin 25 MG tablet Take 25 mg by mouth 1 (one) time each day Active Dulaglutide 1.5 MG/0.5ML solution pen-injector Inject 1.5 mg under the skin per week Active spironolactone (ALDACTONE) 25 MG tablet Take 1 tablet (25 mg total) by mouth at bed time 90 tablet 3 07/03/19 24 Active carvedilol (COREG) 25 MG tablet Take 1 tablet (25 mg total) by mouth every morning and evening 180 tablet 3 10/06/19 24 Active Praluent 75 MG/ML solution auto-injector INJECT 75 MG SUBCUTANEOUSLY EVERY 14 DAYS Active amLODIPine (NORVASC) 10 MG tablet Take 0.5 tablets (5 mg total) by mouth 1 (one) time each day 12/24/19 24 Active furosemide (LASIX) 20 MG tablet Take 20 mg by mouth 1 (one) time each day Active valsartan (DIOVAN) 40 MG tablet Take 40 mg by mouth 1 (one) time each day Active tamsulosin (FLOMAX) 0.4 MG 24 hr capsuleIndicati ons:Stage 3a chronic kidney disease (HCC),Chronic systolic congestive heart failure (HCC),Type 2 diabetes mellitus with diabetic nephropathy (HCC) Take 1 capsule (0.4 mg total) by mouth 1 (one) time each day 90 capsule 3 12/24/19 24 025 Active Active Problems Problem Noted Date Diagnosed Date Benign prostatic hyperplasia 12/24/2023 Stage 3a chronic kidney disease 07/14/2019 Essential hypertension 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 Proteinuria Hyperlipidemia Dyslipidemia Acute tubular necrosis Overview (07/14/2019): ischemic Systolic congestive heart failure Immunizations Name Administration Dates Next Due Influenza, MDCK, PF, Quadrivalent 03/08/2020 Influenza, MDCK, Quadrivalent, with preservative 04/01/2017 Pneumococcal Conjugate 13-Valent 12/08/2014 Zoster 05/31/2019,03/10/2019 Social History Tobacco Use Types Packs/Day Years Used Date Smoking Tobacco: Former Comments:Smoking History Inf o:Unknown Alcohol Use Standard Drinks/Week Comments No 0 (1 standard drink = 0.6 oz pur e alcohol) Sex and Gender Information Value Date Recorded Sex Assigned at Not on file Legal Sex Male 4:36 PM EST Gender Identity Not on file Sexual Orientation Not on file Last Filed Vital Signs Vital Sign Reading Time Taken Comments Blood Pressure 128/74 12/24/2023 2:17 PM EDT Pulse 70 12/24/2023 2:17 PM EDT Temperature - - Respiratory Rate - - Oxygen Saturation - - Inhaled Oxygen Concentration - - Weight 65.8 kg (145 lb) 12/24/2023 2:17 PM EDT Height 170.2 cm (5' 7 ) 01/13/2019 12:00 PM EDT Body Mass Index 22.71 01/13/2019 12:00 PM EDT Plan of Treatment Upcoming Encounters Date Type Department Care Team (Late st Contact Info) Description 12/22/2024 2:30 PM EDT Office Visit [facility], [address] [place] [address] Abel Ji DO [address] [place] [id number] Health Maintenance Due Date Last Done Comments Colorectal Cancer Screening: Annual FOBT 1998 Colorectal Cancer Screening: Colonoscopy 1998 Colorectal Cancer Screening: Sigmoidoscopy 1998 Diabetes: Ophthalmology Exam 07/14/2019 Diabetes: Pedal Pulse Checked 07/14/2019 Diabetes: Sensory Foot Exam 07/14/2019 Diabetes: Visual Foot Exam 07/14/2019 Influenza Vaccine (#1) 2024 , 03/08/2020, 03/22/2019, Additional history exists Diabetes: Hemoglobin A1C 02/18/2024 024, 06/05/2023, 02/03/2023, Additional history exists Hepatitis B Vaccine Aged Out 06/15/2015, 05/03/2014, 09/27/2013 No longer eligible based on patient's age to complete this topic Pneumococcal Vaccine: 65+ Years Completed 03/03/2018, 12/08/2014, 08/17/2012 Procedures Procedure Name Priority Date/Time Associated Diagnosis Comments HEMOGLOBIN A1C Routine 08/15/2022 2:13 PM EST Stage 3a chronic kidney disease (HCC) Chronic systolic congestive heart failure (HCC) Essential hypertension from Last 3 Months or Most Recently Relevant to Health Maintenance Results * (ABNORMAL) Hemoglobin A1c (08/15/2022 2:13 PM EST) Hemoglobin A1C 7.1(H) (4.0-5.6) % [facility] Comment: MONITORING: In known diabetic patients, hemoglobin A1c targets should be discussed with health care provider. DIAGNOSTIC USE: ??The [place] Diabetes Association (ADA) and the World Health Organization (WHO) recommend the use of HbA1c to diagnose diabetes using a threshold of 6.5%. Patients who have an HbA1c between 5.7% and 6.4% are considered at increased risk for developing diabetes in the future. CAUTION: Falsely low HbA1c results may be observed in patients with hemolytic anemia, homozygous forms of abnormal hemoglobin (e.g. SS, CC, SC), , recent blood loss or hemoglobin F greater than 7%. Fructosamine may be used as an alternate test in these cases. REFERENCE: ADA: Standards of Medical Care in Diabetes 2020, The Journal of Clinical and Applied Research and Education Volume 43, Supplement 1 Testing performed or reported by [facility], a Service of [facility], [address] [place] [address] Guerita Jorge MD, Grizzly Worker [facility]# [id number] Blood (Blood, Venous) 08/15/2022 2:13 PM EST 08/15/2022 2:17 PM EST us Abel Ji DO LAB BLOOD ORDERABLES Final Resu lt [facility] from Last 3 Months or Most Recently Relevant to Health Maintenance Insurance [facility] ONE [employer] DUAL SNP ([id number]) [place] [id number] Care Teams Day Camp Unit Leader Relationship Specialty Start Date End Date Michelle Zhang MD PCP - General 04/20/19
--- OUTSIDE RECORDS SUMMARY | 2024-07-29 10:18 | XMS_ITS | Encounter Summary ---
Author Organization [facility], Address [address] [place] [address] Phone Care Team Providers Care Crm Solution Architect Name Role Phone Michelle Zhang MD Primary Care Provider [phone] Encounter Details Date Type Department Care Team (Late st Contact Info) Description 02/03/2023 Documentation Only [facility] [address] [place] [address] Abel Ji DO [address] [place] [address] Social History Tobacco Use Types Packs/Day Years Used Date Smoking Tobacco: Former Comments:Smoking History Inf o:Unknown Alcohol Use Standard Drinks/Week Comments No 0 (1 standard drink = 0.6 oz pur e alcohol) Sex and Gender Information Value Date Recorded Sex Assigned at Not on file Legal Sex Male 4:36 PM EST Gender Identity Not on file Sexual Orientation Not on file documented as of this encounter Plan of Treatment Upcoming Encounters Date Type Department Care Team (Late st Contact Info) Description 12/22/2024 2:30 PM EDT Office Visit [facility] [address] [place] [address] Abel Ji DO [address] [place] [address] documented as of this encounter Visit Diagnoses Not on filedocumented in this encounter Care Teams Crm Solution Architect Relationship Specialty Start Date End Date Michelle Zhang MD PCP - General 04/20/19 documented as of this encounter
--- OUTSIDE RECORDS SUMMARY | 2024-07-29 10:18 | XMS_ITS | Encounter Summary ---
Author Organization [facility] Address [address] [place] [address] Phone Care Team Providers Care Mate Fourth Name Role Phone Michelle Zhagn MD Primary Care Provider [phone] Encounter Details Date Type Department Care Team (Late Contact Info) Description 12/24/2023 Documentation Only [facility] [address] [place] [address] Zahira Cazares [address] [place] [address] Social History Tobacco Use Types Packs/Day Years [...] Visit [facility] [address] [place] [address] Abel Ji DO [address] [place] [address] [place] [address] documented as of this encounter Visit Diagnoses Not on filedocumented in this encounter Care Teams Mate Fourth Relationship Specialty Start Date End Date Michelle Zhang MD PCP - General 04/20/19 documented as of this encounter
--- OUTSIDE RECORDS SUMMARY | 2024-07-29 10:19 | XMS_ITS | Encounter Summary ---
Author Organization [facility], Address [address] [place] [address] Phone Care Team Providers Care Police Detective Name Role Phone Michelle Zhang MD Primary Care Provider [phone] Encounter Details Date Type Department Care Team (Late st Contact Info) Description 02/03/2023 Documentation Only [facility] [address] [place] [address] Abel Ji DO [address] [place] [address] Social History Tobacco Use Types [...] Visit [facility] [address] [place] [address] Abel Ji DO [address] [place] [address] documented as of this encounter Visit Diagnoses Not on filedocumented in this encounter Care Teams Police Detective Relationship Specialty Start Date End Date Michelle Zhang MD PCP - General 04/20/19 documented as of this encounter
--- OUTSIDE RECORDS SUMMARY | 2024-07-29 10:19 | XMS_ITS | Encounter Summary ---
Author Organization [facility], Address [address] [place] [address] Phone Care Team Providers Care Customer Program Manager Name Role Phone Michelle Zhang MD Primary Care Provider [phone] Reason for Visit * Reason Comments Med Refill Encounter Details Date Type Department Care Team (Late Contact Info) Description 10/28/2022 Refill [facility] [address] [place] [id number] Abel Ji DO [address] [place] [address] Social History Tobacco Use Types [...] Encounters Date Type Department Care Team (Late Contact Info) Description 12/22/2024 2:30 PM EDT Office Visit [facility], [address] [place] [address] Abel Ji DO [address] [facility] [address] [place] [address] documented as of this encounter Visit Diagnoses Not on filedocumented in this encounter Care Teams Customer Program Manager Relationship Specialty Start Date End Date Michelle Zhang MD PCP - General 04/20/19 documented as of this encounter
== END 2024-07-29 10:32 | disposition home or self-care (01) ==
PROVIDERS: PCP Family Medicine; Visit Provider Surgery Vascular Surgery
DX: I73.9 Peripheral vascular disease, unspecified (principal)
CPT/HCPCS: 99204; G2211

== ENCOUNTER → 2024-07-29 09:48 | Outpatient (BNVA) | payer OTHER, SELFPAY | PROVIDERS: PCP Family Medicine; Visit Provider Surgery Vascular Surgery | DX: I73.9 Peripheral vascular disease, unspecified (principal) | CPT/HCPCS: 99202 ==

== ENCOUNTER 2024-08-13 14:14 | Emergency (ER) | payer OTHER, SELFPAY ==
--- NOTE | ~2024-08-13 | XR_ITS ---
EXAMINATION: XR KNEE, RIGHT CLINICAL INFORMATION: fall COMPARISON: None available. TECHNIQUE: Four views of the right knee. FINDINGS: No fracture, dislocation, or suspicious bone lesion. Normal bone mineralization. Normal alignment. Joint spaces are preserved. No significant arthropathy. Tiny suprapatellar joint effusion suspected. Soft tissues appear normal. There are surgical clips in the medial posterior upper knee. XR/XR knee RT 3V IMPRESSION: No acute findings right knee. Electronically signed by: Ga Hurt MD 08/13/2024 03:35 PM [facility]
--- NOTE | ~2024-08-13 | XR_ITS ---
EXAMINATION: XR HAND/WRIST, LEFT CLINICAL INFORMATION: fall COMPARISON: None available. TECHNIQUE: PA, lateral, oblique, and scaphoid views of the left hand and wrist. FINDINGS: No fracture, dislocation, or suspicious bone lesion. Normal bone mineralization. Normal alignment. Joint spaces are preserved. No significant arthropathy. No significant joint effusion. Soft tissue laceration to the distal aspect of the second digit. No radiopaque foreign body. Soft tissues otherwise normal. Surgical clips abutting the volar medial distal radius. XR/XR hand wrist LT IMPRESSION: 1. No acute bony findings of the hand and wrist. 2. Soft tissue laceration to the distal second digit. Electronically signed by: Ga Hurt MD 08/13/2024 03:38 PM [facility]
[2024-08-13 14:39] VITALS: BP 144/95; PULSE 77; RESP 20; TEMP 36.6; O2SAT 94; BMI 22.0
--- NOTE | 2024-08-13 14:40 | ED_ITS ---
HPI - Fall General Chief Complaint: Fall Stated Complaint: finger lacerations from fall Related Data Home Medications ?Medication ?Instructions ?Recorded ?Confirmed aspirin 81 mg tablet,delayed 81 mg PO DAILY 03/08/21 03/11/24 release carvedilol 25 mg tablet 25 mg PO BID 03/08/21 03/11/24 empagliflozin 25 mg tablet 25 mg PO DAILY 03/08/21 03/11/24 (Jardiance) ezetimibe 10 mg tablet 10 mg PO BEDTIME 03/08/21 03/11/24 mirtazapine 15 mg tablet 7.5 mg PO BEDTIME 03/08/21 03/11/24 pantoprazole 40 mg tablet,delayed 40 mg PO DAILY@0630 03/08/21 03/11/24 release dulaglutide 0.75 mg/0.5 mL 0.75 mg subcut TH@0903/07/22 03/11/24 subcutaneous pen injector (Trulicity) amlodipine 5 mg tablet 5 mg PO DAILY@1200 10/19/23 03/11/24 docusate sodium 100 mg capsule 100 mg PO BID PRN Constipation 10/19/23 03/11/24 spironolactone 25 mg tablet 25 mg PO BEDTIME 10/19/23 03/11/24 trazodone 50 mg tablet 50 mg PO BEDTIME PRN insomnia 10/19/23 03/11/24 tamsulosin 0.4 mg capsule mg PO DAILY 03/18/24 Previous Rx's ?Medication ?Instructions ?Recorded pen needle, diabetic 32 gauge x #100 ea 05/11/2306/19 alirocumab 75 mg/mL subcutaneous 75 mg subcut Q14D 90 days #7 mL 09/30/23 pen injector (Praluent Pen) furosemide 20 mg tablet 20 mg PO DAILY #90 tabs 10/21/23 sacubitril 24 mg-valsartan 26 mg 1 tab PO BID 90 days #180 tabs 06/11/24 tablet (Entresto) atorvastatin 80 mg tablet 80 mg PO BEDTIME #90 tabs 08/11/24 Allergies Allergy/AdvReac Type Severity Reaction Status Date / Time No Known Allergies Allergy Verified 08/13/24 14:44 PENDING SALE TO [facility] Past Medical History Medical History Hospital discharge follow-up Heart failure with reduced ejection fraction Renal failure GERD (gastroesophageal reflux disease) Chronic renal insufficiency Hyperlipidemia Diabetes mellitus Ischemic cardiomyopathy HTN (hypertension) CAD (coronary artery disease) Surgical History S/P CABG x 4 H/O colonoscopy Hx of cholecystectomy Social History Social History Household Members: Spouse Housing: Apartment Do you presently have visiting nurse or other home services: Yes ([facility] 1/month.) Alcohol intake: former Comment: at bedside Patient Tobacco Use Status: Never used Tobacco Second Hand Smoke Exposure: No Advance Directives: Yes Advance Directives on File: Yes Advance Directives Date on File: 05/09/23 Do you have a plan to hurt others: No Plan service: No Physical Exam Vital Signs: Vital Signs: Last Vital Signs Temp 97.9 F 08/13/24 14:39 Pulse 77 08/13/24 14:39 Resp 20 08/13/24 14:39 BP 144/95 H 08/13/24 14:39 Pulse Ox 94 08/13/24 14:39 O2 Del Method Room Air 08/13/24 14:39 BMI result Body Mass Index 22.0 Course Course Course Narrative: This is a Rapid Medical Exam performed in triage by Zuleyma Ann PA-C. Full HPI, ROS and PE to be performed by primary ED provider. 73o M with a past medical history PAD, CHF, ischemic cardiomyopathy, HLD, HTN, CAD presenting to the ED c/o R knee & L hand pain slip & fall outside [employer], while trying to get on the bus. denies head strike or LOC. on ASA PE: +superficial lacerations to L 2nd & 4th digits, abrasion to R knee Plan: XR, wound repair Discharge Plan Discharge Clinical Impression: Finger laceration Patient Disposition: Left W/O Completing Treatment Prescriptions: No Action Entresto 24-26 mg tablet 1 tab PO BID 90 Days Qty: 180 3RF atorvastatin 80 mg tablet 80 mg PO BEDTIME Qty: 90 3RF trazodone 50 mg tablet 50 mg PO BEDTIME PRN (Reason: insomnia) amlodipine 5 mg tablet 5 mg PO DAILY@1200 spironolactone 25 mg tablet 25 mg PO BEDTIME docusate sodium 100 mg capsule 100 mg PO BID PRN (Reason: Constipation) furosemide 20 mg Tablet 20 mg PO DAILY Qty: 90 0RF Protocol: Hold for SBP< HOLD for SBP < : 90 (DME) pen needle, diabetic 32 gauge x 1/4 needle Qty: 100 0RF Rx Instructions: Use four times a day or as directed. aspirin 81 mg tablet,delayed release (DR/EC) 81 mg PO DAILY ezetimibe 10 mg tablet 10 mg PO BEDTIME Jardiance 25 mg tablet 25 mg PO DAILY pantoprazole 40 mg tablet,delayed release (DR/EC) 40 mg PO DAILY@0630 mirtazapine 15 mg tablet 7.5 mg PO BEDTIME carvedilol 25 mg tablet 25 mg PO BID Trulicity 0.75 mg/0.5 mL pen injector 0.75 mg subcut TH@0900 Praluent Pen 75 mg/mL pen injector 75 mg SUBCUT Q14D 90 Days Qty: 7 3RF tamsulosin 0.4 mg capsule PO DAILY Discharge Date/Time: 08/13/24 20:02
--- NOTE | 2024-08-13 19:53 | PC.NURSE ---
no answer from WR at 194
--- OUTSIDE RECORDS SUMMARY | 2024-08-13 20:02 | XMS_ITS | Encounter Summary ---
Author Organization [employer] Address [address] [place] [address] 7[address] [place] [address] Care Team Providers Care Property Utilization Officer Name Role Phone Michelle Zhang MD Primary Care Provider [phone] Duke Betancourt PharmD Unavailable [phone] Reason for Visit * Reason Onset Date Comments glucose meter 11/18/2022 Encounter Details Date Type Department Care Team (Late st Contact Info) Description 11/18/2022 Telephone [facility] MEDICINE [address] [place], [place] [phone] Michelle Zhang MD [address] [place], [place] [phone] glucose meter Social History Tobacco Use Types Packs/Day Years Used Date Smoking Tobacco: Never Passive Smoke Exposure: Never Smokeless Tobacco: Never Depression Answer Date Recorded Patient Health Questionnaire-9 Score 0 09/09/2022 Depression Answer Date Recorded Patient Health Questionnaire-2 Score 0 09/09/2022 Sex and Gender Information Value Date Recorded Sex Assigned at Male 04/15/2022 10:14 AM EDT Legal Sex Male 10:14 AM EDT Gender Identity Male 04/15/2022 10:14 AM EDT Sexual Orientation Straight 04/15/2022 10 :14 AM EDT COVID-19 Exposure Response Date Recorded In the last 10 days, have yo u been in contact with someone who was confirmed or suspected to have Coronavirus/COVID-19? No / Unsure 11/12/2022 9:39 AM EDT documented as of this encounter Miscellaneous Notes * Telephone Encounter - Shelbie Rankin - 11/18/2022 2:08 PM EDT Tc from [facility] requesting a new glucose meter due to old one not working . documented in this encounter Plan of Treatment Upcoming Encounters Date Type Department Care Team (Late st Contact Info) Description 10/14/2024 11:00 AM EDT Office Visit [facility] MEDICINE [address] [place] [address] Michelle Zhang MD [address] [place] [address] documented as of this encounter Goals Goal Patient Goal Type Associated Problems Recent Progress Patient-Stated? Author Blood Pressure < 140/90 Blood Pressure 154/90( 025 11:06 AM EST) No Duke Betancourt, Wolf documented as of this encounter Visit Diagnoses Diagnosis Type 2 diabetes mellitus with microalbuminuria, without long-term current use of insulin ([facility]) documented in this encounter Additional Health Concerns Assessment Noted Time PHQ-9 Depression Total Score: 0 09/10/19 10:48 AM EDT documented as of this encounter Care Teams Property Utilization Officer Relationship Specialty Start Date End Date Michelle Zahng MD [address] [place] [address] PCP - General Family Medicine 04/15/12 Duke Betancourt, PharmD [address] [place] [phone] Pharmacist Internal Medicine 08/26/22 documented as of this encounter
--- OUTSIDE RECORDS SUMMARY | 2024-08-13 20:02 | XMS_ITS | Encounter Summary ---
Author Organization [facility], Address [address] [place] [address] Phone Care Team Providers Care Glove Cleaner Name Role Phone Michelle Zhang MD Primary Care Provider [phone] Encounter Details Date Type Department Care Team (Late st Contact Info) Description 02/03/2023 Documentation Only [facility] [address] [place] [address] Abel Ji DO [address] [place] [address] Social History Tobacco Use Types [...] Visit [facility] [address] [address] Abel Ji DO [address] [place] [address] documented as of this encounter Visit Diagnoses Not on filedocumented in this encounter Care Teams Glove Cleaner Relationship Specialty Start Date End Date Michelle Zhang MD PCP - General 04/20/19 documented as of this encounter
--- OUTSIDE RECORDS SUMMARY | 2024-08-13 20:02 | XMS_ITS | Encounter Summary ---
Author Organization [employer] Address [address] [place] [address] 7t [place] [address] Care Team Providers Care Shank Threader Name Role Phone Michelle Zhang MD Primary Care Provider [phone] Duke Betancourt PharmD Unavailable [phone] Reason for Referral * Medications - Closed Specialty Diagnoses / Procedures Referred By Contac t Referred To Contact Michelle Zhang MD [address] [place] [address] Phone: tel: fax: Referral ID Status Reason Start Date Expiration Date Visits Re quested Visits Authorized [id number] Closed 1 1 Encounter Details Date Type Department Care Team (Late st Contact Info) Description 10/03/2023 Orders Only [facility] MEDICINE [address] [place], [place] [phone] Michelle Zhang MD [address] [place], [place] [phone] Social History Tobacco Use Types Packs/Day Years Used Date Smoking Tobacco: Never Passive Smoke Exposure: Never Smokeless Tobacco: Never Alcohol Use Standard Drinks/Week Comments Never 0 (1 standard drink = 0.6 oz pur e alcohol) Depression Answer Date Recorded Patient Health Questionnaire-9 Score 0 09/09/2022 Housing Stability Answer Date Recorded What is your housing situation today? I have rola briscoe 04/01/[address] you li ve. Do you have problems with any of the following? None of the above 04/01/2023 Food Insecurity Answer Date Recorded Within the past 12 months, y ou worried that your food would run out before you got money to buy more: Never True 04/01/2023 Within the past 12 months,th e food you bought just didn't last and you didn't have enough money to get more: Never True Transportation Answer Date Recorded In the past 12 months, has l ack of transportation kept you from medical appts, meetings, work or from getting things needed for daily living? No 04/01/2023 Utilities Answer Date Recorded In the past 12 months, has t he electric, gas, oil or water company threatened to shut off services in your home? No 04/01/2023 Depression Answer Date Recorded Patient Health Questionnaire-2 Score 0 09/09/2022 Sex and Gender Information Value Date Recorded Sex Assigned at Male 04/15/2022 10:14 AM EDT Legal Sex Male 10:14 AM EDT Gender Identity Male 04/15/2022 10:14 AM EDT Sexual Orientation Straight 04/15/2022 10 :14 AM EDT documented as of this encounter Plan of Treatment Upcoming Encounters Date Type Department Care Team (Late st Contact Info) Description 10/14/2024 11:00 AM EDT Office Visit [facility] MEDICINE [address] [place] [phone] Michelle Zhang MD [address] [place] [address] documented as of this encounter Goals Goal Patient Goal Type Associated Problems Recent Progress Patient-Stated? Author Blood Pressure < 140/90 Blood Pressure 154/90( 025 11:06 AM EST) No Duke Betancourt, Wolf documented as of this encounter Visit Diagnoses Not on filedocumented in this encounter Additional Health Concerns Assessment Noted Time PHQ-9 Depression Total Score: 0 09/10/19 23 10:48 AM EDT documented as of this encounter Care Teams Shank Threader Relationship Specialty Start Date End Date Michelle Zhang MD [address] [place] [address] PCP - General Family Medicine 04/15/12 Duke Betancourt PharmD [address] [place] [phone] Pharmacist Internal Medicine 08/26/22 documented as of this encounter
--- OUTSIDE RECORDS SUMMARY | 2024-08-13 20:02 | XMS_ITS | Encounter Summary ---
Author Organization [employer] Address [address] 7t [place] [address] Care Team Providers Care Prefitter Doors Name Role Phone Michelle Zhang MD Primary Care Provider [phone] Duke Betancourt PharmD Unavailable [phone] Reason for Visit * Reason Comments Med Refill Encounter Details Date Type Department Care Team ([facility] st Contact Info) Description 08/10/2024 Refill [facility] MEDICINE [address] [place], [place] [phone] Michelle Zhang MD [address] [place], [place] [phone] Primary hypertension Social History Tobacco Use Types Packs/Day Years Used Date Smoking Tobacco: Never Passive Smoke Exposure: Never Smokeless Tobacco: Never Alcohol Use Standard Drinks/Week Comments Never 0 (1 standard drink = 0.6 oz pur e alcohol) Depression Answer Date Recorded Patient Health Questionnaire-9 Score 0 03/01/2024 Patient Health Questionnaire-9 Score 0 03/01/2024 Last PHQ-9: Questionnaire Data Not on file 0 03/01/2024 Housing Stability Answer Date Recorded What is [...] enough money to get more: Never True 10/ Transportation Answer Date Recorded In the past [...] Date Recorded Patient Health Questionnaire-2 Score 0 03/01/2024 Sex and Gender Information Value Date Recorded Sex Assigned at Male 04/15/2022 10:14 AM EDT Legal Sex Male 10:14 AM EDT Gender Identity Male 04/15/2022 10:14 AM EDT Sexual Orientation Straight 04/15/2022 10 :14 AM EDT documented as of this encounter Plan of Treatment Upcoming Encounters Date Type Department Care Team (Late st Contact Info) Description 10/14/2024 11:00 AM EDT Office Visit [facility] MEDICINE [address] [place] [address] Michelle Zhang MD [address] [place] [address] documented as of this encounter Goals Goal Patient Goal Type Associated Problems Recent Progress Patient-Stated? Author Blood Pressure < 140/90 Blood Pressure 154/90( 025 11:06 AM EST) Duke Muir, Wolf documented as of this encounter Visit Diagnoses Diagnosis Primary hypertension Unspecified essential hypertension documented in this encounter Additional Health Concerns Assessment Noted Time PHQ-9 Depression Total Score: 0 03/01/20 24 10:05 AM EDT documented as of this encounter Care Teams Prefitter Doors Relationship Specialty Start Date End Date Michelle Zhang MD [address] [place] [address] PCP - General Family Medicine 04/15/12 Duke Betancourt PharmD [address] [place] [address] Pharmacist Internal Medicine 08/26/22 documented as of this encounter
--- OUTSIDE RECORDS SUMMARY | 2024-08-13 20:02 | XMS_ITS ---
Author Organization [facility] Address [address] [place] [address] Care Team Providers Care Baseball Inspector And Repairer Name Role Phone Leatha SUBRAMANIAN, Michelle Primary Care Provider Fausto Knight [phone] REASON FOR VISIT screening PROBLEMS Problem Type ICD Code Onset Dates Problem Status W/U Status Risk SNOMED Code Notes Problem Diverticulosis of large intestine without perforation or abscess without bleeding (K57.30) Active confirmed Diverticul ar disease of colon (676135650) Encounters Encounter Location Date Provider Diagnosis [facility] [address] [place] [phone] 04/28/2023 Fausto Little Encounter for scre ening colonoscopy Z12.11 ; Diverticulosis of large intestine without perforation or abscess without bleeding K57.30 and Other hemorrhoids K64.8 ASSESSMENTS Encounter Date Diagnosis Assessment Notes Treatment Notes Treatment Clinical Notes 04/28/2023 Encounter for screening colonoscopy (ICD-10 - Z12.11) 04/28/2023 Diverticulosis of large intestine without perforation or abscess without bleeding (ICD-10 - K57.30) 04/28/2023 Other hemorrhoids (ICD-10 - K64.8) PLAN OF TREATMENT No Information
--- OUTSIDE RECORDS SUMMARY | 2024-08-13 20:02 | XMS_ITS | Encounter Summary ---
Author Organization [employer] Address [address] [facility] 7t [place] [address] Care Team Providers Care Bird Trapper Name Role Phone Michelle Zhang MD Primary Care Provider [phone] Duke Betancourt PharmD Unavailable [phone] Encounter Details Date Type Department Care Team ([facility] st Contact Info) Description 11/21/2023 Orders Only [facility] MEDICINE [address] [place], [place] [phone] Michelle Zhang MD [address] [place], [place] [phone] Bradycardia (Primary Dx) Social History Tobacco Use Types Packs/Day Years [...] Description 10/14/2024 11:00 AM EDT Office Visit [facility] MEDICINE [address] [place], [place] [phone] Michelle Zhang MD [address] [place] [address] documented as of this encounter Goals Goal Patient Goal Type Associated Problems Recent Progress Patient-Stated? Author Blood Pressure < 140/90 Blood Pressure 154/90( 025 11:06 AM EST) No Duke Betancourt, Wolf documented as of this encounter Visit Diagnoses Diagnosis Bradycardia- Primary Other specified cardiac dysrhythmias documented in this encounter Additional Health Concerns Assessment Noted Time PHQ-9 Depression Total Score: 0 09/10/19 23 10:48 AM EDT documented as of this encounter Care Teams Bird Trapper Relationship Specialty Start Date End Date Michelle Zhang MD [address] [place] [address] PCP - General Family Medicine 04/15/12 Duke Betancourt, PharmD [address] [place], [place] [phone] Pharmacist Internal Medicine 08/26/22 documented as of this encounter
--- OUTSIDE RECORDS SUMMARY | 2024-08-13 20:02 | XMS_ITS | Encounter Summary ---
Author Organization [facility] Address [address] [place] [address] Phone Care Team Providers Care Landscape Contractor Name Role Phone Michelle Zhang MD Primary Care Provider [phone] Encounter Details Date Type Department Care Team (Late Contact Info) Description 12/24/2023 Documentation Only [facility] [address] [place] [address] Zahira Cazares [address] [place] [address] Social History Tobacco Use Types [...] Visit [facility] [address] [place] [address] Abel Ji DO [address] [place] [address] [place] [address] documented as of this encounter Visit Diagnoses Not on filedocumented in this encounter Care Teams Landscape Contractor Relationship Specialty Start Date End Date Michelle Zhang MD PCP - General 04/20/19 documented as of this encounter
--- OUTSIDE RECORDS SUMMARY | 2024-08-13 20:02 | XMS_ITS | Clinical Summary ---
Author Organization [employer] Address [address] [place] [address] [address] [place] [address] Care Team Providers Care Calculator Operator Name Role Phone Michelle Davis MD Primary Care Provider [phone] Duke Betancourt PharmD Unavailable [phone] Allergies No known active allergies Medications Nutritional Supplements (Glucerna Shake) liquid Drink 2-3 cans daily 021 Active atorvastatin (Lipitor) 80 MG tablet Take 1 tablet by mouth at bedtime. 020 Active carvedilol (Coreg) 25 MG tablet TAKE 1 TABLET BY MOUTH TWICE DAILY IN THE MORNING AND IN THE EVENING 023 Active mirtazapine (Remeron) 15 MG tablet TAKE 1/2 TABLET BY MOUTH AT BEDTIME 023 Active traZODone (Desyrel) 50 MG tablet Take 1 tablet by mouth as needed for sleep 022 Active Blood Glucose Monitoring Suppl (FreeStyle Lite) w/Device kitIndications: Type 2 diabetes mellitus with microalbuminuri a, without long-term current use of insulin ([facility]) 1 kit 3 times daily. Check blood sugar three times daily 1 kit 023 Active Blood Pressure Monitor kit Check blood pressure once daily and as needed 1 kit 023 Active Easy Touch Pen [place] 31G X 8 MM misc USE FOUR TIMES DAILY OR DIRECTED 100 each 023 Active alirocumab (Praluent) 75 MG/ML injection Inject 1 mL (75 mg) under the skin every 14 (fourteen) days. 2.24 mL 11 024 Active spironolactone (Aldactone) 25 MG tablet Take 1 tablet (25 mg) by mouth at bedtime. 90 tablet 3 024 Active docusate sodium (Colace) 100 MG capsuleIndicati ons:Constipatio n, unspecified constipation type TAKE 1 CAPSULE BY MOUTH TWICE DAILY IN THE MORNING AND IN THE EVENING NEEDED 180 capsule Active dulaglutide (Trulicity) 0.75 MG/0.5ML solution pen-injector INJECT ONE PEN (=0.75MG) SUBCUTANEOUSLY ONCE A WEEK DIRECTED 2 mL 11 024 Active Multiple Vitamin (multivitamin) tablet Take 1 tablet by mouth Once per day. 90 tablet 3 024 Active furosemide (Lasix) 20 MG tablet Take 20 mg by mouth Once per day. Active lidocaine (Lidoderm) 5 % patchIndication s:Pain of right hip Apply 1 patch topically Once per day. Remove & discard patch within 12 hours or as directed by MD. 30 patch 1 Active Diclofenac Sodium 1 % gelIndications: Pain of right hip Apply 1 Application topically if needed each day (hip pain). 50 g 024 Active FREESTYLE LITE test stripIndication s:Type 2 diabetes mellitus with stage 3a chronic kidney disease, without long-term current use of insulin ([facility]) TEST BLOOD SUGAR 4-6 TIMES PER DAY 150 strip 11 024 Active ezetimibe (Zetia) 10 MG tablet TAKE 1 TABLET BY MOUTH AT BEDTIME 90 tablet 3 024 Active Jardiance 25 MGIndications:T ype 2 diabetes mellitus with other specified complication, unspecified whether chcf insulin use ([facility]) TAKE 1 TABLET BY MOUTH EVERY MORNING 90 tablet 3 024 Active pantoprazole (ProtoNix) 40 MG EC tabletIndicatio ns:Chronic GERD TAKE 1 TABLET BY MOUTH EVERY MORNING 90 tablet 3 024 Active Aspirin Low Dose 81 MG EC tabletIndicatio ns:Ischemic heart disease TAKE 1 TABLET BY MOUTH EVERY MORNING 90 tablet 3 024 Active aspirin (Aspirin Adult Low Strength) 81 MG EC tabletIndicatio ns:Ischemic heart disease Take 1 tablet (81 mg) by mouth in the morning. 90 tablet 3 024 Active TRUEplus Lancets 33G misc TEST BLOOD SUGAR THREE TIMES DAILY 100 each 11 Active Entresto 24-26 MG tablet TAKE 1 TABLET BY MOUTH TWICE DAILY IN THE MORNING AND IN THE EVENING Active tamsulosin (Flomax) 0.4 MG 24 hr capsule Take 1 capsule (0.4 mg) by mouth at bedtime. 90 capsule 3 Active ammonium lactate (Lac-Hydrin) 12 % lotion Apply topically if needed for dry skin. 225 g 3 Active amLODIPine (Norvasc) 5 MG tabletIndicatio ns:Primary hypertension TAKE 1 TABLET BY MOUTH EVERY EVENING 90 tablet 3 025 Active amLODIPine (Norvasc) 5 MG tabletIndicatio ns:Primary hypertension Take 1 tablet (5 mg) by mouth at bedtime. 90 tablet 3 024 2024 Discontinued Active Problems Problem Noted Date Diagnosed Date Pain in both lower extremities 03/07/2024 Assessment & Plan (03/07/2024 7:47 AM EDT): Right > left Worse with standing and walking DDx: claudication / PAD or neuropathy, venous insufficiency, or musculoskeletal etiology Evaluate with arterial doppler Frequent PVCs 02/27/2024 Assessment & Plan (07/11/2024 1:06 PM EST): - Holter monitor on 12/07/23 showed frequent PVCs. Total burden 10.5%. Frequent episodes of nonsustained ventricular tachycardia, longest lasting 19 beats at 149 beats. Assessment & Plan (02/27/2024 6:39 PM EDT): - Holter monitor on 12/07/23 showed frequent PVCs. Total burden 10.5%. Frequent episodes of nonsustained ventricular tachycardia, longest lasting 19 beats at 149 beats. History of COVID-19 02/27/2024 Assessment & Plan (02/27/2024 6:42 PM EDT): - Mar 2022 and May 2023 Right hip pain 12/25/2023 Assessment & Plan (12/25/2023 5:21 PM EDT): Pt w pain in right hip on exam after lifting a furniture, on exam no findings for dislocation or fractures w no deformities nor bruises Gait affected due to pain -lidoderm patch -diclofenac topical -warm compresses advised -tylenol PRN -XR right hip ordered today --will call pt w result -will decide w result of image if need to refer to PT or orthopedic -advice to use his cane to ambulate to avoid falls Bradycardia 11/18/2023 Assessment & Plan (11/18/2023 12:34 PM EDT): - will request logistics project manager for Holter monitor - patient seems to have bradycardia with heart rate in 40s at home Ingrown toenail of both feet 09/05/2023 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 09/05/2023 Assessment & Plan (09/05/2023 9:59 AM EDT): - will prescribe diabetic footwear - will refer to political advisor for further evaluation of ingrown toenails Constipation 09/04/2023 Assessment & Plan (09/04/2023 10:02 PM EDT): - Continue Colace 100 mg prn. Periodontal disease 08/21/2023 Osteoarthritis of multiple joints 08/18/2023 Long-term use of aspirin therapy 04/04/2023 04/04/2023 Heart failure with reduced ejection fraction Assessment & Plan (07/11/2024 1:06 PM EST): -quadruple CABG for 3-vessel CAD by Dr. Uriarte on 01/06/17. - completed cardiac rehabilitation - TTE: 05/19/23 mild to moderate LVH. Severely dilated LV. EF 35%. Severe global hypokinesis without regional wall motion abnormality. Grade III diastolic dysfunction. Moderately dilated RV and systolic function is severely reduced. Severely dilated LA. Moderate mitral and mild tricuspid regurgitation. - Most recent transthoracic echocardiogram on 02/20/24 LVEF 37%. Basal inferior, mid inferior, and basal inferolateral segments are akinetic. - Continue carvedilol, furosemide, spironolactone, sacubitril / valsartan - Continue ASA. - Continue intensive statin management with statin, ezetimibe, and Praluent - Continue Jardiance for diabetes mellitus - Treatment Hx: lisinopril was discontinued due to PRITI in May 2023 - Continue working on lifestyle modifications - Follow up with logistics project manager as scheduled - Continue working on risk factor management Assessment & Plan (03/01/2024 10:46 AM EDT): -quadruple CABG for 3-vessel CAD by Dr. Uriarte on 01/06/17. - completed cardiac rehabilitation - TTE: 05/19/23 mild to moderate LVH. Severely dilated LV. EF 35%. Severe global hypokinesis without regional wall motion abnormality. Grade III diastolic dysfunction. Moderately dilated RV and systolic function is severely reduced. Severely dilated LA. Moderate mitral and mild tricuspid regurgitation. - Most recent transthoracic echocardiogram on 02/20/24 LVEF 37%. Basal inferior, mid inferior, and basal inferolateral segments are akinetic. - Continue carvedilol, furosemide, spironolactone, valsartan - Continue ASA. - Continue intensive statin management with statin, ezetimibe, and Praluent - Continue Jardiance for diabetes mellitus - Treatment Hx: lisinopril was discontinued due to PRITI in May 2023 - Continue working on lifestyle modifications - Follow up with logistics project manager as scheduled - Continue working on risk factor management Assessment & Plan (11/18/2023 12:32 PM EDT): -quadruple CABG for 3-vessel CAD by Dr. Uriarte on 01/06/17. - completed cardiac rehabilitation - TTE: 05/19/23 mild to moderate LVH. Severely dilated LV. EF 35%. Severe global hypokinesis without regional wall motion abnormality. Grade III diastolic dysfunction. Moderately dilated RV and systolic function is severely reduced. Severely dilated LA. Moderate mitral and mild tricuspid regurgitation. - Continue carvedilol, furosemide, spironolactone, valsartan - Continue ASA. - Continue intensive statin management with statin, ezetimibe, and Praluent - Continue Jardiance for diabetes mellitus - Treatment Hx: lisinopril was discontinued due to PRITI in Nov/May 2023 - Continue working on lifestyle modifications - Follow up with logistics project manager as scheduled - Continue working on risk factor management Assessment & Plan (09/05/2023 9:51 AM EDT): -quadruple CABG for 3-vessel CAD by Dr. Uriarte on 01/06/17. - completed cardiac rehabilitation - TTE: 05/19/23 mild to moderate LVH. Severely dilated LV. EF 35%. Severe global hypokinesis without regional wall motion abnormality. Grade III diastolic dysfunction. Moderately dilated RV and systolic function is severely reduced. Severely dilated LA. Moderate mitral and mild tricuspid regurgitation. - Continue carvedilol, furosemide, spironolactone. - Continue ASA. - Continue intensive statin management with statin, ezetimibe, and Praluent - Continue Jardiance for diabetes mellitus - Treatment Hx: lisinopril was discontinued due to PRITI in May 2023 - Continue working on lifestyle modifications - Follow up with logistics project manager as scheduled - Continue working on risk factor management Assessment & Plan (09/05/2023 9:47 AM EDT): >>ASSESSMENT AND PLAN FOR CHRONIC HEART FAILURE WITH PRESERVED EJECTION FRACTION (CMS/HCC) WRITTEN ON 09/16/2022 8:39 AM BY MICHELLE DAVIS MD - completed cardiac rehabilitation - TTE: 02/08/19 Echo LVEF 40-45%, mild-mod LV systolic dysfunction, mild mitral regurgitation - Most recent stress echo on 02/14/22: LVEF 55%, 47% with stress. No ischemia. - Continue Coreg, lisinopril and spironolactone. - Continue ASA. - Continue Jardiance for DM Assessment & Plan (09/05/2023 9:47 AM EDT): >>ASSESSMENT AND PLAN FOR CHRONIC HEART FAILURE WITH PRESERVED EJECTION FRACTION (CMS/HCC) WRITTEN ON 11/17/2022 4:26 PM BY MICHELLE DAVIS MD - completed cardiac rehabilitation - TTE: 02/08/19 Echo LVEF 40-45%, mild-mod LV systolic dysfunction, mild mitral regurgitation - Most recent stress echo on 02/14/22: LVEF 55%, 47% with stress. No ischemia. - Continue Coreg, lisinopril and spironolactone. - Continue ASA. - Continue Jardiance for DM Assessment & Plan (09/05/2023 9:47 AM EDT): >>ASSESSMENT AND PLAN FOR CHRONIC HEART FAILURE WITH PRESERVED EJECTION FRACTION (CMS/HCC) WRITTEN ON 02/22/2023 4:43 AM BY MICHELLE DAVIS MD - completed cardiac rehabilitation - TTE: 02/08/19 Echo LVEF 40-45%, mild-mod LV systolic dysfunction, mild mitral regurgitation - Most recent stress echo on 02/14/22: LVEF 55%, 47% with stress. No ischemia. - Continue Coreg, lisinopril and spironolactone. - Continue ASA. - Continue Jardiance for DM - Follow up with logistics project manager as scheduled - Continue working on risk factor management Assessment & Plan (09/05/2023 9:47 AM EDT): >>ASSESSMENT AND PLAN FOR CHRONIC HEART FAILURE WITH PRESERVED EJECTION FRACTION (CMS/HCC) WRITTEN ON 06/05/2023 1:43 PM BY MARLENY AQUINO MD Pt with Hx of ischemic cardiomyopathy. EF 40-45% 03/2021. He had been on neurohormonal modulation with carvedilol and lisinopril. Also on Aldactone, Jardiance. Echocardiogram done 02/28/2023 showed EF 40-45%, mid inferior, mid inferior lateral hypokinesis, basal inferior akinesis. No significant change from prior. Pt was recently admitted to [facility] with CHF exacerbation. BNP up to 2270. While in the hospital diuresed with IV Lasix. Then readmitted to [facility] days later for COVID, CHF, PRITI. On discharge his Aldactone and lisinopril were stopped. He is Currently on Lasix 20 mg Friday, Friday and Friday. Today he reports that his breathing is back to normal. He has no PND, orthopnea or edema. Fully recovered from COVID. Plan: Continue Lasix. Labs done 05/28/2023 shows potassium 4.4, creatinine 1.38. Creatinine had been as high as 2.0 at [facility]. Seen by Cardiology 06/02/2023 who stated that he can stay off lisinopril for now. Cardiology restarted Aldactone to help prevent recurrent heart failure. They recommended to continue carvedilol and follow-up with them in 4 months to reassess for heart failure. Nonproliferative diabetic retinopathy 08/13/2022 Assessment & Plan (07/11/2024 1:09 PM EST): -with macular edema, b/l eyes -followed by [facility] -Intravitreal Avastin Assessment & Plan (11/18/2023 11:35 AM EDT): -with macular edema, b/l eyes -followed by [facility] -Intravitreal [facility]in Assessment & Plan (09/04/2023 10:00 PM EDT): -with macular edema, b/l eyes -followed by [facility] -Intravitreal Avastin Assessment & Plan (02/22/2023 4:46 AM EDT): -with macular edema, b/l eyes -followed by [facility] -Intravitreal Avastin Assessment & Plan (11/17/2022 4:28 PM EDT): -with macular edema, b/l eyes -followed by [facility] -Intravitreal Avastin Assessment & Plan (09/09/2022 11:21 AM EDT): -with macular edema, b/l eyes -followed by [facility]Intravitreal Avastin Assessment & Plan (08/13/2022 5:32 AM EST): -with macular edema, b/l eyes -followed by [facility] -Intravitreal Avastin Diabetic nephropathy with proteinuria 08/13/2022 Assessment & Plan (07/11/2024 1:09 PM EST): -Following with Dr. Ji Assessment & Plan (11/18/2023 11:35 AM EDT): -Following with Dr. Ji Assessment & Plan (02/22/2023 4:46 AM EDT): -Following with Dr. Ji Assessment & Plan (11/17/2022 4:28 PM EDT): -Following with Dr. Ji Assessment & Plan (09/09/2022 11:22 AM EDT): -Following with Dr. Ji Assessment & Plan (08/13/2022 5:33 AM EST): -Following with Dr. Ji Stage 3b chronic kidney disease 05/20/2022 Assessment & Plan (07/11/2024 1:07 PM EST): - [employer]: Dr. Ji - sohail following with organ teacher - continue ARB and SGLT2i - avoid nephrotoxins - renal dose medication Assessment & Plan (03/01/2024 10:46 AM EDT): - [employer] S[employer]: Dr. Ji - sohail following with organ teacher - avoid nephrotoxins - renal dose medication Assessment & Plan (11/18/2023 11:34 AM EDT): - [employer] S[employer]: Dr. Ji - sohail following with organ teacher - avoid nephrotoxins - renal dose medication Assessment & Plan (09/04/2023 9:59 PM EDT): - [employer] S[employer]: Dr. Ji - sohail following with organ teacher - avoid nephrotoxins - renal dose medication Assessment & Plan (02/22/2023 4:46 AM EDT): - [employer] Seller: Dr. Ji - sohail following with organ teacher - avoid nephrotoxins - renal dose medication Assessment & Plan (11/17/2022 4:27 PM EDT): - [employer] Seller: Dr. Garrison sauceda following with organ teacher - avoid nephrotoxins - renal dose medication S/P CABG x 4 01/21/2017 Assessment & Plan (07/11/2024 1:03 PM EST): -quadruple CABG for 3-vessel CAD by Dr. Uriarte on 01/06/17. -no complication -completed cardiac rehabilitation Assessment & Plan (02/22/2023 4:45 AM EDT): -quadruple CABG for 3-vessel CAD by Dr. Uriarte on 01/06/17. -no complication -completed cardiac rehabilitation Assessment & Plan (11/17/2022 4:25 PM EDT): -quadruple CABG for 3-vessel CAD by Dr. Uriarte on 01/06/17. -no complication -completed cardiac rehabilitation Assessment & Plan (09/16/2022 8:40 AM EDT): -quadruple CABG for 3-vessel CAD by Dr. Uriarte on 01/06/17. -no complication -completed cardiac rehabilitation Ischemic cardiomyopathy 12/24/2016 Ischemic heart disease 12/24/2016 Assessment & Plan (07/11/2024 1:04 PM EST): -Following with Dr. Interiano at [facility], last seen in Feb 2024. -quadruple CABG for 3-vessel CAD by Dr. Uriarte on 01/06/17. - TTE: 05/19/23 mild to moderate LVH. Severely dilated LV. EF 35%. Severe global hypokinesis without regional wall motion abnormality. Grade III diastolic dysfunction. Moderately dilated RV and systolic function is severely reduced. Severely dilated LA. Moderate mitral and mild tricuspid regurgitation. - Continue Carvedilol, furosemide, spironolactone, Entresto and ASA. - Continue empagliflozin for diabetes mellitus - Treatment Hx: lisinopril was discontinued in May 2023 due to PRITI. Vaksaran was changed to Enntresto in Feb 2024 - Follow-up with logistics project manager as scheduled Assessment & Plan (03/01/2024 10:44 AM EDT): -Following with Dr. Interiano at [facility], last seen in September 2023. -quadruple CABG for 3-vessel CAD by Dr. Uriarte on 01/06/17. - TTE: 05/19/23 mild to moderate LVH. Severely dilated LV. EF 35%. Severe global hypokinesis without regional wall motion abnormality. Grade III diastolic dysfunction. Moderately dilated RV and systolic function is severely reduced. Severely dilated LA. Moderate mitral and mild tricuspid regurgitation. - Continue Carvedilol, furosemide, spironolactone and ASA. - Continue empagliflozin for diabetes mellitus - Treatment Hx: lisinopril was discontinued in May 2023 due to PRITI. - Follow-up with logistics project manager as scheduled Assessment & Plan (11/18/2023 12:31 PM EDT): -Following with Dr. Interiano at [facility], last seen in September 2023. -quadruple CABG for 3-vessel CAD by Dr. Uriarte on 01/06/17. - TTE: 05/19/23 mild to moderate LVH. Severely dilated LV. EF 35%. Severe global hypokinesis without regional wall motion abnormality. Grade III diastolic dysfunction. Moderately dilated RV and systolic function is severely reduced. Severely dilated LA. Moderate mitral and mild tricuspid regurgitation. - Continue Carvedilol, furosemide, spironolactone and ASA. - Continue empagliflozin for diabetes mellitus - Treatment Hx: lisinopril was discontinued in May 2023 due to PRITI. - Follow-up with logistics project manager as scheduled Assessment & Plan (09/05/2023 9:52 AM EDT): -Following with Dr. Interiano at [facility], last seen in May 2023. -quadruple CABG for 3-vessel CAD by Dr. Uriarte on 01/06/17. - TTE: 05/19/23 mild to moderate LVH. Severely dilated LV. EF 35%. Severe global hypokinesis without regional wall motion abnormality. Grade III diastolic dysfunction. Moderately dilated RV and systolic function is severely reduced. Severely dilated LA. Moderate mitral and mild tricuspid regurgitation. - Continue Carvedilol, furosemide, spironolactone and ASA. - Continue empagliflozin for diabetes mellitus - Treatment Hx: lisinopril was discontinued in May 2023 due to PRITI. - Follow-up with logistics project manager as scheduled Assessment & Plan (02/22/2023 4:42 AM EDT): -Following with Dr. Interiano at [facility] - TTE: 02/08/19 Echo LVEF 40-45%, mild-mod LV systolic dysfunction, mild mitral regurgitation - Most recent stress echo on 02/14/22: LVEF 55%, 47% with stress. No ischemia. - Continue Carvedilol, lisinopril, spironolactone and ASA. - Continue Jardiance for DM - Follow-up as scheduled Assessment & Plan (11/17/2022 4:25 PM EDT): -Following with Dr. Interiano at [facility] - TTE: 02/08/19 Echo LVEF 40-45%, mild-mod LV systolic dysfunction, mild mitral regurgitation - Most recent stress echo on 02/14/22: LVEF 55%, 47% with stress. No ischemia. - Continue Carvedilol, lisinopril, spironolactone and ASA. - Continue Jardiance for DM Assessment & Plan (09/16/2022 8:41 AM EDT): -Following with Dr. Interiano at [facility] - TTE: 02/08/19 Echo LVEF 40-45%, mild-mod LV systolic dysfunction, mild mitral regurgitation - Most recent stress echo on 02/14/22: LVEF 55%, 47% with stress. No ischemia. - Continue Carvedilol, lisinopril, spironolactone and ASA. - Continue Jardiance for DM Allergic rhinitis 04/01/2016 Type 2 diabetes mellitus 09/19/2015 Assessment & Plan (07/11/2024 1:08 PM EST): - A1C 7.4% slightly increased from 7.3% on 03/01/24, personal best 6.7% on 09/04/23 - Pt has worked with CDE RN and price economist in the past - Continue working on lifestyle modifications, especially diet. - Continue diligent SMBG as instructed. - Continue Jardiance 25 mg daily - Continue Trulicity 0.75 mg weekly, started since Mar 2021 - Treatment Hx: metformin 1000 mg bid was discontinued due to CKD / PRITI in AprMay 2023 DM Health Maintenance: - Last eye exam: Jan 2023 OU mild nonproliferative diabetic retinopathy with macular edema. - Last foot exam: Feb 2024 - Last microalbumin test: 09/10/23 UACR 319 - Last lipid panel: 11/05/23 - Dental exam: up to date - Immunizations: up to date Assessment & Plan (03/07/2024 7:43 AM EDT): - A1C 7.3% on 03/01/24, increased from 6.7% on 09/04/23 - Pt has worked with CDE RN and price economist in the past - Continue working on lifestyle modifications, especially diet. - Continue diligent SMBG as instructed. - Continue Jardiance 25 mg daily - Continue Trulicity 0.75 mg weekly, started since Mar 2021 - Treatment Hx: metformin 1000 mg bid was discontinued due to CKD / PRITI in AprMay 2023 DM Health Maintenance: - Last eye exam: Jan 2023 OU mild nonproliferative diabetic retinopathy with macular edema. - Last foot exam: Feb 2024 - Last microalbumin test: 09/10/23 UACR 319 - Last lipid panel: 11/05/23 - Dental exam: up to date - Immunizations: up to date Assessment & Plan (11/18/2023 12:33 PM EDT): - most recent A1C 6.7% on 09/04/23 - Pt has worked with CDE RN and price economist in the past - Continue working on lifestyle modifications, especially diet. - Continue diligent SMBG as instructed. - Continue Jardiance 25 mg daily - Continue Trulicity 0.75 mg weekly, started since Mar 2021 - Treatment Hx: metformin 1000 mg bid was discontinued due to CKD / PRITI in AprMay 2023 DM Health Maintenance: - Last eye exam: Jan 2023 OU mild nonproliferative diabetic retinopathy with macular edema. - Last foot exam: August 2023 - Last microalbumin test: 09/10/23 UACR 319 - Last lipid panel: 11/05/23 - Dental exam: up to date - Immunizations: up to date Assessment & Plan (09/05/2023 9:55 AM EDT): - most recent A1C 6.7% on 09/04/23 - Pt has worked with CDE RN and price economist in the past - Continue working on lifestyle modifications, especially diet. - Continue diligent SMBG as instructed. - Continue Jardiance 25 mg daily - Continue Trulicity 0.75 mg weekly, started since Mar 2021 - Treatment Hx: metformin 1000 mg bid was discontinued due to CKD / PRITI in AprMay 2023 DM Health Maintenance: - Last eye exam: Jan 2023 OU mild nonproliferative diabetic retinopathy with macular edema. - Last foot exam: August 2023 - Last microalbumin test: 09/06/21 UACR 826 - Last lipid panel: 11/13/22 TC 163; TG 152; HDL 44; LDL 94 - Dental exam: up to date - Immunizations: up to date Assessment & Plan (06/05/2023 2:03 PM EST): Pt recently discharge from Hospital Metformin discontinued due to PRITI Most recent A1C 7.2% on 06/05/23 Pt has worked with CDE RN and price economist in the past Continue working on lifestyle modifications, especially diet. Continue diligent SMBG as instructed. Referred to [facility] Continue Jardiance 25 mg daily Continue Trulicity 0.75 mg weekly, started since Mar 2021 Repeat BMP if Renal function back to baseline Metformin might be able to be restarted Assessment & Plan (02/22/2023 4:47 AM EDT): -most recent A1C 7.0% on 02/03/23, improving - Pt has worked with CDE RN and price economist in the past - Continue working on lifestyle modifications, especially diet. - Continue diligent SMBG as instructed. - Continue Metformin 1000 mg in the morning and 1000 mg in the evening. 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 - Last foot exam: 09/09/22 - Last microalbumin test: 09/06/21 UACR 826 - Last lipid panel: 11/13/22 TC 163; TG 152; HDL 44; LDL 94 - Dental exam: up to date - Immunizations: up to date Assessment & Plan (11/17/2022 4:27 PM EDT): -most recent A1C 7.4% on 09/09/22, worsened from 6.5% on 11/30/21 - Pt has worked with CDE RN and price economist in the past - Continue working on lifestyle modifications, especially diet. - Continue diligent SMBG as instructed. - Continue Metformin 1000 mg in the morning and 1000 mg in the evening. 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 - Last foot exam: 09/09/22 - Last microalbumin test: 09/06/21 UACR 826 - Last FLP: 09/06/21 TC 151; TG 208; HDL 49; LDL 71 - Dental exam: up to date - Immunizations: up to date Assessment & Plan (09/16/2022 8:24 AM EDT): -most recent A1C 7.4% on 09/09/22, worsened from 6.5% on 11/30/21 - Pt has worked with CDE RN and price economist in the past - Continue working on lifestyle modifications, especially diet. - Continue diligent SMBG as instructed. - Continue Metformin 1000 mg in the morning and 1000 mg in the evening. 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 - Last foot exam: 09/09/22 - Last microalbumin test: 09/06/21 UACR 826 - Last FLP: 09/06/21 TC 151; TG 208; HDL 49; LDL 71 - Dental exam: up to date - Immunizations: up to date Assessment & Plan (08/13/2022 5:37 AM EST): -most recent A1C 6.5% on 11/30/21 - Pt has worked with CDE RN and price economist in the past - Continue working on lifestyle modifications, especially diet. - Continue diligent SMBG as instructed. - Continue Metformin 1000 mg in the morning and 1000 mg in the evening. 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 - Last foot exam: 09/03/21. - Last microalbumin test: 09/06/21 UACR 826 - Last FLP: 09/06/21 TC 151; TG 208; HDL 49; LDL 71 - Dental exam: up to date - Immunizations: up to date Dyslipidemia 08/17/2012 Assessment & Plan (07/11/2024 1:09 PM EST): -Last lipid panel: 11/05/23 -Current Medications: Praluent, atorvastatin 80 mg at bedtime; Zetia 10 mg daily -Continue working on lifestyle modifications continue current medications and periodic lab Assessment & Plan (03/07/2024 7:44 AM EDT): -Last lipid panel: 11/05/23 -Current Medications: Praluent, atorvastatin 80 mg at bedtime; Zetia 10 mg daily -Continue working on lifestyle modifications continue current medications and periodic lab Assessment & Plan (09/04/2023 9:59 PM EDT): -Last lipid panel: 11/13/22 TC 163; TG 152; HDL 44; LDL 94 -Current Medications: Praluent, atorvastatin 80 mg at bedtime; Zetia 10 mg daily -Continue working on lifestyle modifications continue current medications and periodic lab Assessment & Plan (02/03/2023 4:47 AM EDT): -Last lipid panel: 11/13/22 TC 163; TG 152; HDL 44; LDL 94 -Current Medications: Praluent, atorvastatin 80 mg at bedtime; Zetia 10 mg daily -Continue working on lifestyle modifications continue current medications and periodic lab Assessment & Plan (11/17/2022 4:34 PM EDT): -Last lipid panel: 09/06/21 TC 151; TG 208; HDL 49; LDL 71 -Current Medications: Praluent, atorvastatin 80 mg at bedtime; Zetia 10 mg daily -Continue working on lifestyle modifications continue current medications and periodic lab Assessment & Plan (09/09/2022 11:25 AM EDT): -Last lipid panel: 09/06/21 TC 151; TG 208; HDL 49; LDL 71 -Current Medications: Praluent, atorvastatin 80 mg at bedtime -Continue working on lifestyle modifications continue current medications and periodic lab Assessment & Plan (08/13/2022 5:40 AM EST): -Last lipid panel: 09/06/21 TC 151; TG 208; HDL 49; LDL 71 -Current Medications: Praluent, atorvastatin 80 mg at bedtime -Continue working on lifestyle modifications continue current medications and periodic lab Gastroesophageal reflux disease 08/17/2012 Assessment & Plan (11/17/2022 4:26 PM EDT): -Hx H. Pylori gastritis s/p eradication Tx in 2020 -Continue pantoprazole -Keep appt with GI Assessment & Plan (09/16/2022 8:25 AM EDT): -Hx H. Pylori gastritis s/p eradication Tx in 2020 -Continue pantoprazole -Keep appt with GI Hypertension 08/17/2012 Assessment & Plan (07/11/2024 1:11 PM EST): -goal BP <140/90 per JNC-8, < 130/80 per ACC/AHA guideline -BP not at goal, normal BP at home, per patient's caregiver -comanaged with our pharmacist, logistics project manager, and organ teacher. -continue working on lifestyle modifications -decrease Amlodipine to 5 mg daily. -continue Carvedilol 25 mg bid -continue Spironolactone 25 mg daily (patient is developing mild gynecomastia, but tolerable) -continue sacubitril / valsartan 24-26 mg daily -continue furosemide 20 mg daily as directed by logistics project manager and organ teacher Assessment & Plan (03/01/2024 10:45 AM EDT): -goal BP <140/90 per JNC-8, < 130/80 per ACC/AHA guideline -BP at goal -comanaged with our pharmacist, logistics project manager, and organ teacher. -continue working on lifestyle modifications -decrease Amlodipine to 5 mg daily. -continue Carvedilol 25 mg bid -continue Spironolactone 25 mg daily -continue valsartan 40 mg daily -continue furosemide 20 mg daily as directed by logistics project manager and organ teacher -requested 24 hour BP monitoring with organ teacher; check its status -follow up in 3 mo or sooner prn Assessment & Plan (12/25/2023 5:21 PM EDT): BP 148/100 -states home BP 120/87 this am and states rarely BP is elevated at home -possible elevated now due to pain -to bring home BP at next apt w PCP --apt w PCP 03/01/2024 Assessment & Plan (11/18/2023 12:31 PM EDT): -goal BP <140/90 per JNC-8, < 130/80 per ACC/AHA guideline -BP at goal -comanaged with our pharmacist, logistics project manager, and organ teacher. -continue working on lifestyle modifications -decrease Amlodipine to 5 mg daily. -continue Carvedilol 25 mg bid -continue Spironolactone 25 mg daily -continue valsartan 40 mg daily -continue furosemide 20 mg daily as directed by logistics project manager and organ teacher -requested 24 hour BP monitoring with organ teacher; check its status -follow up in 3 mo or sooner prn Assessment & Plan (09/05/2023 9:46 AM EDT): -goal BP <140/90 per JNC-8, < 130/80 per ACC/AHA guideline -BP not at goal -comanaged with our pharmacist, logistics project manager, and organ teacher. -continue working on lifestyle modifications -continue Lisinopril 40 mg daily -decrease Amlodipine to 5 mg daily. -continue Carvedilol 25 mg bid -restart Spironolactone 25 mg daily -discontinue hydralazine 10 mg tid -continue furosemide as directed by logistics project manager and organ teacher; currently taking 20 mg MWF, and taking extra for weight gain and holding for weight loss and symptomatic hypotension -requested 24 hour BP monitoring with organ teacher; check its status -follow up in 3 mo or sooner prn Assessment & Plan (06/05/2023 2:02 PM EST): Pt here for a HDF -comanaged with our pharmacist, logistics project manager, and organ teacher. In the Hospital Lisinopril was discontinued due to PRITI Currently on: Amlodipine 10mg daily. Carvedilol 25 mg bid Restarted Spironolactone 25 mg daily by Cardiology hydralazine to 10 mg tid follow up in 3 mo or sooner with PCP Repeat BMP Assessment & Plan (02/22/2023 4:44 AM EDT): -goal BP <140/90 per JNC-8, < 130/80 per ACC/AHA guideline -BP not at goal, reportedly normal at home -comanaged with our pharmacist, logistics project manager, and organ teacher. -continue working on lifestyle modifications -continue Lisinopril 40 mg daily -continue Amlodipine 10mg daily. -continue Carvedilol 25 mg bid -continue Spironolactone 25 mg daily -continue hydralazine to 10 mg tid, decreased dose from 25 mg tid to 10 mg tid on 04/05/21. -pt was advised to check BP before taking hydralizine. hold if systolic BP <110 -requested 24 hour BP monitoring with organ teacher; check its status -follow up in 3 mo or sooner prn Assessment & Plan (11/17/2022 4:25 PM EDT): -goal BP <140/90 per JNC-8, < 130/80 per ACC/AHA guideline -BP not at goal, reportedly normal at home -comanaged with our pharmacist, logistics project manager, and organ teacher. -continue working on lifestyle modifications -continue Lisinopril 40 mg daily -continue Amlodipine 10mg daily. -continue Carvedilol 25 mg bid -continue Spironolactone 25 mg daily -continue hydralazine to 10 mg tid, decreased dose from 25 mg tid to 10 mg tid on 04/05/21. -pt was advised to check BP before taking hydralizine. hold if systolic BP <110 -requested 24 hour BP monitoring with organ teacher; check its status Assessment & Plan (09/16/2022 8:27 AM EDT): -goal BP <140/90 per JNC-8, < 130/80 per ACC/AHA guideline -BP not at goal, reportedly normal at home -comanaged with our pharmacist, logistics project manager, and organ teacher. -continue working on lifestyle modifications -continue Lisinopril 40 mg daily -continue Amlodipine 10mg daily. -continue Carvedilol 25 mg bid -continue Spironolactone 25 mg daily -continue hydralazine to 10 mg tid, decreased dose from 25 mg tid to 10 mg tid on 04/05/21. -pt was advised to check BP before taking hydralizine. hold if systolic BP <110 -requested 24 hour BP monitoring with organ teacher; check its status Proteinuria 08/17/2012 Backache 01/07/2012 Mood disorder 01/07/2012 Assessment & Plan (07/11/2024 1:09 PM EST): - major depression - S provider: [facility] Psychiatrevita sauceda mirtazapine and trazodone - treatment Hx: Lorazepam; antipsychotics Assessment & Plan (03/07/2024 7:43 AM EDT): - major depression - S provider: [facility] Psychiatrevita sauceda mirtazapine and trazodone - treatment Hx: Lorazepam; antipsychotics Assessment & Plan (09/04/2023 9:58 PM EDT): - major depression - S provider: [facility] Psychiatrevita sauceda mirtazapine and trazodone - treatment Hx: Lorazepam; antipsychotics Assessment & Plan (02/22/2023 4:48 AM EDT): - major depression - S provider: [facility] Psychiatrevita sauceda mirtazapine and trazodone - treatment Hx: Lorazepam; antipsychotics Assessment & Plan (11/17/2022 4:33 PM EDT): - major depression - [facility] provider: [facility] Psychiatrist Dr. 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 Davis here for a HDF He was recently admitted to [facility] with increased sob and treated for Congestive heart failure exacerbation. While in the hospital he was diuresed with IV Lasix. A few days after discharge he presented to the emergency room with c/o cough and sob, dx with COVID and treated conservatively as oxygen saturations was 99%. He then presented himself to [facility] for further treatment and was eventually admitted x 3 days for COVID, CHF, and PRITI. Upon discharge lisinopril and Aldactone were discontinued. Disease due to severe acute respiratory syndrome coronavirus 2 (SARS-CoV-2) 05/20/202308/15 Overview (08/18/2023): Problem added by Discern Expert Colon cancer screening 04/04/2023 04/04/202309/04 Gastroenteritis 08/26/2022 09/08/2022 Encounters Date Type Department Care Team Description 08/10/2024 Telephone [facility] [address], [place] [phone] Michelle Davis MD 08/10/2024 Refill [facility] [address], [place] [phone] Michelle Davis MD Primary hypertension 07/15/2024 Telephone [facility] [address], [place] [phone] Cuca Vera RN 07/15/2024 Orders Only [facility] [address] [place] [id number] Michelle Davis MD PAD (peripheral artery disease) ([facility]) (Primary Dx) 07/08/2024 11:15 AM EST Office Visit [facility] JESSE [id number] Michelle Davis MD Ischemic heart disease (Primary Dx); Frequent PVCs; Primary hypertension; Heart failure with reduced ejection fraction ([facility]); Stage 3b chronic kidney disease ([facility]); Type 2 diabetes mellitus with stage 3a chronic kidney disease, without long-term current use of insulin ([facility]); Diabetic nephropathy with proteinuria ([facility]); Nonproliferative diabetic retinopathy ([facility]); Mood disorder ([facility]); Dyslipidemia; S/P CABG x 4; Ischemic cardiomyopathy; Excessive cerumen in ear canal, unspecified laterality 07/08/2024 Travel 07/06/2024 Telephone [facility] [place] [place] [phone] Michelle Davis MD Letter Request (I called regarding a request for a letter for housing, and spoke with Jordana, his emergency contact. The patient is requesting a letter, stating that he is able to negotiate stairs, so that he could be given an apartment which has internal stairs. I informed her that, per the patient's PCP, that if he gets an apartment with internal stairs, and develops vertigo or another condition again in the future, he may not be able to get another apartment without the internal stairs. She stated that she and the ) 06/14/2024 Refill [facility] [place] [phone] Michelle Davis MD 06/10/2024 Orders Only [facility] [place] [phone] Michelle Davis MD 06/10/2024 Telephone [facility] [place] [phone] Michelle Davis MD Appointment Request; Letter Request (I called the patient, regarding a request for a letter for housing. Jordana, his emergency contact (on HIPAA), answered the phone and stated that he is requesting a letter stating that he is able to negotiate stairs, and would prefer a corner apartment. She stated that he is unable to tolerate a lot of noise, therefore, he cannot live in the middle of the apartment complex. She stated that he was unable to negotiate stairs in the past due to vertigo, but since he is no longer having that issue, he is) from Last 3 Months Immunizations Name Administration Dates Next Due Hep B, adult 06/15/2015,05/03/2014,09/27/2013 INFLUENZA INJECTABLE QUADRIV ALANT CCIIV4 MDCK Multi-dose vial 04/01/2017 Influenza High-dose Quadriva lent Preservative Free 04/21/2023,04/05/2021 Influenza Injectable Quadriv alant Preservative Free IIV4 MDCK 03/08/2020 Influenza injectable quadriv alent IIV4 with preservative 03/22/2019,04/01/2016,03/13/2015 Influenza injectable quadriv alent preservative free 05/07/2022 Influenza, High Dose Seasona l, Preservative Free 03/01/2024,03/03/2018 Influenza, IIV3, injectable 04/21/2023,1 07/07/2021,04/05/2021,03/08,03/22/2019,03/03/2018,04/01/2016 ,03/13/2015,05/03/2014,03/21/2011,01/2010,07/21/2009,02/23/2009, 8,05/06/2000 Influenza, Split (incl. gerard fied surface antigen) 03/18/2013,08/17/2012 Moderna Covid-19 Vaccine 12+ 06/14/2021,09/01/19 21,08/03/2020 Pneumococcal Conjugate PCV 13 12/08/2014 Pneumococcal Polysaccharide PPSV23 03/03/2018, Td (adult), 5 Lf tetanus tox oid, preservative free, adsorbed 11/12/2022 Tdap 08/17/2012 Zoster, Recombinant 05/31/2019,03/10/2019 Zoster, live 12/08/2014 Social History Tobacco Use Types Packs/Day Years Used Date Smoking Tobacco: Never Passive Smoke Exposure: Never Smokeless Tobacco: Never Tobacco Cessation:Counseling Given: Not Answered Alcohol Use Standard Drinks/Week Comments Never 0 [...] Orientation Straight 04/15/2022 10 :14 AM EDT Last Filed Vital Signs Vital Sign Reading Time Taken Comments Blood Pressure 154/90 07/08/2024 11:06 AM EST Pulse 75 07/08/2024 10:41 AM EST Temperature 36.4 ??C (97.5 ??F) 07/08/2024 1 0:41 AM EST Respiratory Rate 17 07/08/2024 10:4 1 AM EST Oxygen Saturation 98% 07/08/2024 10: 41 AM EST Inhaled Oxygen Concentration - - Weight 69.8 kg (153 lb 12.8 oz) 025 10:41 AM EST Height 177.8 cm (5' 10 ) 12/25/2023 11: 22 AM EDT Body Mass Index 22.07 12/25/2023 11:22 AM EDT Plan of Treatment Upcoming Encounters Date Type Department Care Team (Late st Contact Info) Description 10/14/2024 11:00 AM EDT Office Visit [facility] [address] [place] [phone] Michelle Davis MD [address] [place], [place] [phone] Health Maintenance Due Date Last Done Comments CT Colonography 1950 FIT DNA/Cologuard 1950 FIT 1950 FOBT 1950 Sigmoidoscopy 1950 Alcohol/Substance Use Screening 1961 Hepatitis C Screening 11/05/1967 RSV Patients and Patients Aged 60 years or older (1 - Risk 60-74 years 1-dose series) 2009 Dental X-Ray: Bitewings 11/07/2011 11/05/2010 Dental X-Ray: Full Mouth 11/06/2013 11/05/2010 Dental Prophylaxis 09/09/2016 03/11/2016, 0 11/24/2014, 03/16/2014, Additional history exists Dental Oral Exam 01/08/2020 07/09/2019, 02/2017, 12/19/2015, Additional history exists Eye Exam 02/01/2024 01/31/2023 COVID-19 Vaccine ( season) 2024 01/14/2022, 06/14/2021, 08/31/2020, Additional history exists SDOH Screening 08/27/2024 08/28/2023 Diabetes: Foot Exam 09/03/2024 09/04/2023, 09/04/2023, 09/04/2023, Additional history exists Diabetes: Hemoglobin A1C 10/06/2024 025, 03/01/2024, 11/18/2023, Additional history exists Lipid Panel 2024 11/05/2023, 08/15, 11/13/2022, Additional history exists Depression Screening 03/01/2025 03/01/2024, 03/01/20 24 Tobacco Screening 07/08/2025 07/08/2024 DTaP/Tdap/Td Vaccines (3 - Td or Tdap) 11/12/2032 11/12/2022, 08/17/2012 Colonoscopy 04/28/2033 04/28/2023 Colorectal Cancer Screening 04/28/2033 Hepatitis B Vaccines Completed 06/15/2015, 05/03/2014, 09/27/2013 Pneumococcal Vaccine: 50+ Years Completed 03/03/2018, 12/08/2014, 08/17/2012 Zoster Vaccines Completed 05/31/2019, 02/15, 12/08/2014 Influenza Vaccine Completed 03/01/2024, , 04/21/2023, Additional history exists HIB Vaccines Aged Out No longer eligi ble based on patient's age to complete this topic HPV Vaccines Aged Out No longer eligi ble based on patient's age to complete this topic Hepatitis A Vaccines Aged Out No long er eligible based on patient's age to complete this topic IPV Vaccines Aged Out No longer eligi ble based on patient's age to complete this topic Meningococcal Vaccine Aged Out No aylin nakul eligible based on patient's age to complete this topic RSV under 20 months Aged Out No longe r eligible based on patient's age to complete this topic Rotavirus Vaccines Aged Out No longer eligible based on patient's age to complete this topic Goals Goal Patient Goal Type Associated Problems Recent Progress Patient-Stated? Author Blood Pressure < 140/90 Blood Pressure 154/90( 025 11:06 AM EST) No Duke Betancourt, Wolf Procedures Procedure Name Priority Date/Time Associated Diagnosis Comments XR HAND WRIST LT Routine 08/13/2024 2:40 PM EST XR KNEE 3 VIEWS RIGHT Routine 08/13/2024 2:40 PM EST POCT GLYCOSYLATED HEMOGLOBIN (HGB A1C) Routine 07/08/2024 11:39 AM EST Type 2 diabetes mellitus with stage 3a chronic kidney disease, without long-term current use of insulin ([facility]) POCT GLUCOSE Routine 07/08/2024 10:42 AM EST Type 2 diabetes mellitus with stage 3a chronic kidney disease, without long-term current use of insulin ([facility]) VASC US LOWER EXTREMITY ARTERIAL DUPLEX BILATERAL Routine 06/10/2024 2:12 PM EST LIPID PANEL, STANDARD Routine 11/05/2023 8:04 AM EDT COLONOSCOPY Routine 04/28/2023 DIABETES EYE EXAM Routine 01/31/2023 PERIODIC ORAL EVALUATION - ESTABLISHED PATIENT Routine 07/09/2019 12:00 AM EST PROPHYLAXIS - ADULT Routine 03/11/2016 1 2:00 AM EDT PANORAMIC RADIOGRAPHIC IMAGE Routine 11/05/2010 12:00 AM EDT BITEWING - SINGLE RADIOGRAPHIC IMAGE Routine 11/05/2010 12:00 AM EDT from Last 3 Months or Most Recently Relevant to Health Maintenance Results * XR HAND WRIST LT (08/13/2024 2:40 PM EST) Anatomical Region Laterality Modality Abdomen Radiographic Rupal ging 08/13/2024 2:40 PM EST Narrative 08/13/2024 3:41 PM EST ? [facility] ?[address] ?[place] [address] ?XRay Report ? Signed ? Patient: Albaladejo,Johny ?MR#: MM ?? [id number] ? : 1950 ?Acct:[id number] ? Age/Sex: 73 / M ?ADM Date: 08/13/24 ? Loc: HO.ED ? Attending Dr: ? Ordering Physician: Zuleyma Ann ?? Date of Service: 08/13/24 ?? Procedure(s): XR hand wrist LT ?? Accession Number(s): [id number] ? cc: Zuleyma Ann; Michelle Davis MD ? EXAMINATION: ?? XR HAND/WRIST, LEFT ? CLINICAL INFORMATION: ?? fall ? COMPARISON: ?? None available. ? TECHNIQUE: ?? PA, lateral, oblique, and scaphoid views of the left hand and wrist. ? FINDINGS: ?? No fracture, dislocation, or suspicious bone lesion. Normal bone ?? mineralization. ?? Normal alignment. ?? Joint spaces are preserved. No significant arthropathy. ? No significant joint effusion. ? Soft tissue laceration to the distal aspect of the second digit. No ?? radiopaque foreign body. ?? Soft tissues otherwise normal. ?? Surgical clips abutting the volar medial distal radius. ? XR/XR hand wrist LT ?? IMPRESSION: ?? 1. No acute bony findings of the hand and wrist. ? 2. Soft tissue laceration to the distal second digit. ? Electronically signed by: ??Ga Hurt MD ??08/13/2024 03:38 PM EST RP ? Dictated By: ?Ga Hurt MD ? Signed By: ?<Electronically signed by Ga Hurt MD in OV> ?08/13/24 1538 ? DD/ 1440 ? TD/TT: 08/13/24 1505 ? Load Out Person: ? Procedure Note Devon Goyal - 08/13/[address] [address] XRay Report Signed Patient: Johny MansfieldMR#: [id number] : 1950Acct:[id number] Age/Sex: 73 / MADM Date: 08/13/24 Loc: HO.ED Attending Dr: Ordering Physician: Zuleyma Ann Date of Service: 08/13/24 Procedure(s): XR hand wrist LT Accession Number(s): [id number] cc: Zuleyma Ann; Michelle Davis MD EXAMINATION: XR HAND/WRIST, LEFT CLINICAL INFORMATION: fall COMPARISON: None available. TECHNIQUE: PA, lateral, oblique, and scaphoid views of the left hand and wrist. FINDINGS: No fracture, dislocation, or suspicious bone lesion. Normal bone mineralization. Normal alignment. Joint spaces are preserved. No significant arthropathy. No significant joint effusion. Soft tissue laceration to the distal aspect of the second digit. No radiopaque foreign body. Soft tissues otherwise normal. Surgical clips abutting the volar medial distal radius. XR/XR hand wrist LT IMPRESSION: 1. No acute bony findings of the hand and wrist. 2. Soft tissue laceration to the distal second digit. Electronically signed by: Ga Hurt MD 08/13/2024 03:38 PM EST Dictated By: Ga Hurt MD Signed By: <Electronically signed by Ga Hurt MD in OV> 08/13/24 1538 DD/ 1440 TD/TT: 08/13/24 1505 Load Out Person: us [facility] External Provider IMG XR PROCEDURES Final Result * XR Knee 3 Views Right (08/13/2024 2:40 PM EST) Anatomical Region Laterality Modality Lower Extremities, Knee Right Radiogra phic Imaging 08/13/2024 2:40 PM EST Narrative 08/13/2024 3:38 PM EST ? [facility] ?[address] ?[place] [address] ?XRay Report ? Signed ? Patient: Albaladejo,Johny ?MR#: MM ?? [id number] ? : 1950 ?Acct:[id number] ? Age/Sex: 73 / M ?ADM Date: 08/13/24 ? Loc: HO.ED ? Attending Dr: ? Ordering Physician: Zuleyma Ann ?? Date of Service: 08/13/24 ?? Procedure(s): XR knee RT 3V ?? Accession Number(s): [id number] ? cc: Zuleyma Ann; Michelle Davis MD ? EXAMINATION: ?? XR KNEE, RIGHT ? CLINICAL INFORMATION: ?? fall ? COMPARISON: ?? None available. ? TECHNIQUE: ?? Four views of the right knee. ? FINDINGS: ?? No fracture, dislocation, or suspicious bone lesion. Normal bone ?? mineralization. ?? Normal alignment. ?? Joint spaces are preserved. No significant arthropathy. ? Tiny suprapatellar joint effusion suspected. ? Soft tissues appear normal. There are surgical clips in the medial ?? posterior upper knee. ? XR/XR knee RT 3V ?? IMPRESSION: ?? No acute findings right knee. ? Electronically signed by: ??Ga Hurt MD ??08/13/2024 03:35 PM EST RP ? Dictated By: ?Ga Hurt MD ? Signed By: ?<Electronically signed by Ga Hurt MD in OV> ?08/13/24 1535 ? DD/ 1440 ? TD/TT: 08/13/24 1505 ? Load Out Person: ? Procedure Note Donotuseinterpreter, Image - 08/13/[address] [address] XRay Report Signed Patient: Johny MansfieldMR#: [id number] : 1950Acct:[id number] Age/Sex: 73 / MADM Date: 08/13/24 Loc: .ED Attending Dr: Ordering Physician: Zuleyma Ann Date of Service: 08/13/24 Procedure(s): XR knee RT 3V Accession Number(s): [id number] cc: Zuleyma Ann; Michelle Davis MD EXAMINATION: XR KNEE, RIGHT CLINICAL INFORMATION: fall COMPARISON: None available. TECHNIQUE: Four views of the right knee. FINDINGS: No fracture, dislocation, or suspicious bone lesion. Normal bone mineralization. Normal alignment. Joint spaces are preserved. No significant arthropathy. Tiny suprapatellar joint effusion suspected. Soft tissues appear normal. There are surgical clips in the medial posterior upper knee. XR/XR knee RT 3V IMPRESSION: No acute findings right knee. Electronically signed by: Ga Hurt MD 08/13/2024 03:35 PM EST Dictated By: Ga Hurt MD Signed By: <Electronically signed by Ga Hurt MD in OV> 08/13/24 1535 DD/ 1440 TD/TT: 08/13/24 1505 Load Out Person: [facility] External Provider IMG XR PROCEDURES Final Result * (ABNORMAL) POCT glycosylated hemoglobin (Hgb A1c) (07/08/2024 11:39 AM EST) Hemoglobin A1C 7.4(A) 4.0 - 6.0 % QC Media Lot # [id number] Lot# Expiration Date Blood Capillary blood specimen / Unknown 07/08/2024 11:39 AM EST Michelle Davis MD POINT OF CARE TEST ENTER/EDIT OR DERABLES Final Result * (ABNORMAL) POCT glucose manually resulted (07/08/2024 10:42 AM EST) [facility] Glucose Blood, POC 248(A) 60 - 200 mg/dL QC Media Lot # [id number] Lot# Expiration Date Blood Capillary blood specimen / Unknown 07/08/2024 10:42 AM EST Michelle Davis MD POINT OF CARE TEST ENTER/EDIT OR DERABLES Final Result * VASC US Lower Extremity Arterial Duplex Bilateral (06/10/2024 2:12 PM EST) 06/10/2024 2:12 PM EST Narrative [facility] - 07/14/2024 5:29 PM EST ? [facility] ?[address] ?[place] [address] ? Ultrasound Report ? Signed ? Patient: Albaladejo,Johny ?MR#: MM ?? [id number] ? : 1950 ?Acct:[id number] ? Age/Sex: 73 / M ?ADM Date: 06/10/24 ? Loc: HO.US ? Attending Dr: Michelle Davis MD ? Ordering Physician: Michelle Davis MD ?? Date of Service: 06/10/24 ?? Procedure(s): US arterial duplex LE BI ?? Accession Number(s): [id number] ? cc: Michelle Davis MD ? EXAMINATION: ?? COLOR-FLOW DUPLEX IMAGING OF THE BILATERAL LOWER EXTREMITY ARTERIAL ?? SYSTEM ?? VELOCITY MEASUREMENTS THROUGHOUT THE FEMORAL ARTERIES ? CLINICAL INFORMATION: ?? The patient is a 73 year-old woman with peripheral vascular disease. ? TECHNIQUE: Using a linear array transducer with grayscale, pulse and ?? color Doppler modalities, ultrasound evaluation is performed of the ?? bilateral lower extremity [place] arterial systems. ? RIGHT FEMORAL RUNOFF VELOCITIES: ? The right common femoral artery peak systolic velocity is 102 cm/s. The ?? waveform is triphasic. ? The right profunda femoral artery peak systolic velocity is 91 cm/s. ?? The waveform is triphasic. ? The right proximal superficial femoral artery peak systolic velocity is ?? 72 cm/s. The waveform is biphasic. ? The right mid superficial femoral artery peak systolic velocity is 56 ?? cm/s. The waveform is biphasic. ? The right distal right superficial femoral artery peak systolic ?? velocity is 68 cm/s. The waveform is biphasic. ? The right popliteal artery peak systolic velocity is 60 cm/s. The ?? waveform is biphasic. ? The right posterior tibial artery velocity peak systolic velocity is 82 ?? cm/s. The waveform is biphasic. ? The right peroneal artery peak systolic velocity is 71 cm/s. The ?? waveform is biphasic. ? The right anterior tibial artery peak systolic velocity is 71 cm/s. The ?? waveform is biphasic. ? The right dorsalis pedis artery peak systolic velocity is 32 cm/s. The ?? waveform is monophasic. ? LEFT FEMORAL RUNOFF VELOCITIES: ? The left common femoral artery peak systolic velocity is 120 cm/s. The ?? waveform is triphasic. ? The left profunda femoral artery peak systolic velocities are 36 cm/s. ?? The waveform is biphasic. ? The left proximal superficial femoral artery peak systolic velocity is ?? 69 cm/s. The waveform is biphasic. ? The left mid superficial femoral artery peak systolic velocity is 52 ?? cm/s. The waveform is biphasic. ? The left distal superficial femoral artery peak systolic velocity is 64 ?? cm/s. The waveform is biphasic. ? The left popliteal artery peak systolic velocity is 56 cm/s. The ?? waveform is biphasic. ? The left posterior tibial artery peak systolic velocity is 104 cm/s. ?? The waveform is biphasic. ? The left peroneal artery is poorly visualized. ? The left anterior tibial artery peak systolic velocity is 55 cm/s. The ?? waveform is biphasic. ? The left dorsalis pedis artery peak systolic velocity is 33 cm/s. The ?? waveform is biphasic. ? US/ arterial duplex LE BI ?? IMPRESSION: ?? There is hemodynamically significant arterial disease within the mid to ?? distal bilateral superficial femoral arteries and the bilateral ?? infrapopliteal arteries, in particular the dorsalis pedis arteries ?? bilaterally. This could be more fully evaluated with CTA or MRA, if ?? clinically indicated. ? Electronically signed by: ??Frankie Real MD ??07/14/2024 05:26 PM EST RP ? Dictated By: ?Frankie Real MD ? Signed By: ?<Electronically signed by Frankie Real MD in OV> ? 07/14/24 1726 ? DD/ 1412 ? TD/TT: 06/10/24 1430 ? Load Out Person: BESSY ? Procedure Note Donmigel, Image - 07/14/2024 [place] [address] Ultrasound Report Signed Patient: Johny MansfieldMR#: [id number] : 1950Acct:[id number] Age/Sex: 73 / MADM Date: 06/10/24 Loc: HO.US Attending Dr: Michelle Davis MD Ordering Physician: Michelle Davis MD Date of Service: 06/10/24 Procedure(s): US arterial duplex LE BI Accession Number(s): [id number] cc: Michelle Davis MD EXAMINATION: COLOR-FLOW DUPLEX IMAGING OF THE BILATERAL LOWER EXTREMITY ARTERIAL SYSTEM VELOCITY MEASUREMENTS THROUGHOUT THE FEMORAL ARTERIES CLINICAL INFORMATION: The patient is a 73 year-old woman with peripheral vascular disease. TECHNIQUE: Using a linear array transducer with grayscale, pulse and color Doppler modalities, ultrasound evaluation is performed of the bilateral lower extremity [place] arterial systems. RIGHT FEMORAL RUNOFF VELOCITIES: The right common femoral artery peak systolic velocity is 102 cm/s. The waveform is triphasic. The right profunda femoral artery peak systolic velocity is 91 cm/s. The waveform is triphasic. The right proximal superficial femoral artery peak systolic velocity is 72 cm/s. The waveform is biphasic. The right mid superficial femoral artery peak systolic velocity is 56 cm/s. The waveform is biphasic. The right distal right superficial femoral artery peak systolic velocity is 68 cm/s. The waveform is biphasic. The right popliteal artery peak systolic velocity is 60 cm/s. The waveform is biphasic. The right posterior tibial artery velocity peak systolic velocity is 82 cm/s. The waveform is biphasic. The right peroneal artery peak systolic velocity is 71 cm/s. The waveform is biphasic. The right anterior tibial artery peak systolic velocity is 71 cm/s. The waveform is biphasic. The right dorsalis pedis artery peak systolic velocity is 32 cm/s. The waveform is monophasic. LEFT FEMORAL RUNOFF VELOCITIES: The left common femoral artery peak systolic velocity is 120 cm/s. The waveform is triphasic. The left profunda femoral artery peak systolic velocities are 36 cm/s. The waveform is biphasic. The left proximal superficial femoral artery peak systolic velocity is 69 cm/s. The waveform is biphasic. The left mid superficial femoral artery peak systolic velocity is 52 cm/s. The waveform is biphasic. The left distal superficial femoral artery peak systolic velocity is 64 cm/s. The waveform is biphasic. The left popliteal artery peak systolic velocity is 56 cm/s. The waveform is biphasic. The left posterior tibial artery peak systolic velocity is 104 cm/s. The waveform is biphasic. The left peroneal artery is poorly visualized. The left anterior tibial artery peak systolic velocity is 55 cm/s. The waveform is biphasic. The left dorsalis pedis artery peak systolic velocity is 33 cm/s. The waveform is biphasic. US/US arterial duplex LE BI IMPRESSION: There is hemodynamically significant arterial disease within the mid to distal bilateral superficial femoral arteries and the bilateral infrapopliteal arteries, in particular the dorsalis pedis arteries bilaterally. This could be more fully evaluated with CTA or MRA, if clinically indicated. Electronically signed by: Frankie Real MD 07/14/2024 05:26 PM [facility] Dictated By: Frankie Real MD Signed By: <Electronically signed by Frankie Real MD in OV> 07/14/24 1726 DD/ 1412 TD/TT: 06/10/24 1430 Load Out Person: BESSY Authorbhupendra Provider Result Type Result Stat us Michelle Davis MD CV VASCULAR PROCEDURES Edited Re sult - Final Performing Organization Address City/[facility]/ZIP Co de Phone Number [facility] [address] [place] [address] * (ABNORMAL) Lipid Panel, Standard (11/05/2023 8:04 AM EDT) Triglycerides 103 <150 mg/dL [facility] Comment:Desirable Triglyceri de: less than 150 mg/dLBorderline High Triglyceride 150-199 mg/dLHigh Triglyceride: 200-499 mg/dLVery High Triglyceride: greater than or equal to 5OO mg/dL Cholesterol 109 <200 mg/dL [facility] Comment:Desirable Cholestero l: less than 200 mg/dLBorderline High Cholesterol: 200-239 mg/dLHigh Cholesterol: greater than 239 mg/dL LDL Cholesterol Calculated 52 <100 mg/dL [facility] Comment:Desirable LDL: less than 100 mg/dLNear Optimal/Above Optimal LDL: 110- 129 mg/dLBorderline High LDL: 130-159 mg/dLHigh LDL: 160-189 mg/dLVery High LDL: greater than or equal to 190 mg/dL HDL Cholesterol 37(L) >40 mg/dL [facility] Comment:Desirable HDL: great er than 40 mg/dL Note: This HDL assay may give artificially low results in patients with liver disease. 11/05/2023 8:04 AM EDT 11/05/2023 8:04 AM EDT us Generic External Data Provider LAB BLOOD ORDERAB LES Final Result [facility] [address] [place] [address] [phone] * Colonoscopy (04/28/2023) Colonoscopy Normal Normal Historical Provider HEALTH MAINTENANCE Edited Result - Final * Diabetes Eye Exam (01/31/2023) Eye Exam Normal Normal, BIRADS 0 , BIRADS 1 , BIRADS 2, BIRADS 3 , BIRADS 4+ us Historical Provider MD HEALTH MAINTENANCE Final Result from Last 3 Months or Most Recently Relevant to Health Maintenance Insurance [facility] - SCO DENTAL - [facility] * Guarantor: Johny Mansfield Account Type Relation to Patient Date of Phone Billing Address Personal/Family Self [address] Care Teams Calculator Operator Relationship Specialty Start Date End Date Michelle Davis MD [address] [place] [address] PCP - General Family Medicine 04/15/12 Duke Betancourt, SanjayD [address] [place] [address] Pharmacist Internal Medicine 08/26/22
--- OUTSIDE RECORDS SUMMARY | 2024-08-13 20:02 | XMS_ITS | Encounter Summary ---
Author Organization [employer] Address [address] [place] [address] Care Team Providers Care Carpet Inspector Finished Name Role Phone Michelle Zhang MD Primary Care Provider [phone] Duke Betancourt PharmD Unavailable [phone] Encounter Details Date Type Department Care Team ([facility] st Contact Info) Description 06/10/2024 Orders Only [facility] [address] [place], [place] [phone] Michelle Zhang MD [address] [place], [place] [phone] Social History Tobacco Use Types Packs/Day Years [...] Description 10/14/2024 11:00 AM EDT Office Visit [facility] [address] [place] [address] Michelle Zhang MD [address] [place] [address] documented as of this encounter Goals Goal Patient Goal Type Associated Problems Recent Progress Patient-Stated? Author Blood Pressure < 140/90 Blood Pressure 154/90( 025 11:06 AM EST) No Duke Betancourt, SanjayD documented as of this encounter Procedures Procedure Name Priority Date/Time Associated Diagnosis Comments [facility] LOWER EXTREMITY ARTERIAL DUPLEX BILATERAL Routine 06/10/2024 2:12 PM EST documented in this encounter Results * [facility] Lower Extremity Arterial Duplex Bilateral (06/10/2024 2:12 PM EST) 06/10/2024 2:12 PM EST Narrative [facility] - 07/14/2024 5:29 PM EST ? [facility] ?[address] ?[place] [address] ? Ultrasound Report ? Signed ? Patient: Albaladejo,Johny ?MR#: MM ?? [id number] ? : 1950 ?Acct:[id number] ? Age/Sex: 73 / M ?ADM Date: 12/26/24 ? Loc: HO.US ? Attending Dr: Michelle Zhang MD ? Ordering Physician: Michelle Zhang MD ?? Date of Service: 06/10/24 ?? Procedure(s): US arterial duplex LE BI ?? Accession Number(s): [id number] ? cc: Michelle Zhang MD ? EXAMINATION: ?? COLOR-FLOW DUPLEX IMAGING OF THE BILATERAL LOWER EXTREMITY ARTERIAL ?? SYSTEM ?? VELOCITY MEASUREMENTS THROUGHOUT THE FEMORAL ARTERIES ? CLINICAL INFORMATION: ?? The patient is a 73 year-old woman with peripheral vascular disease. ? TECHNIQUE: Using a linear array transducer with grayscale, pulse and ?? color Doppler modalities, ultrasound evaluation is performed of the ?? bilateral lower extremity [place] arterial systems. ? RIGHT FEMORAL RUNOFF VELOCITIES: [...] DD/ 1412 ? TD/TT: 06/10/24 1430 ? Jewel Bearing Driller: [facility] ? Procedure Note Jyotsna, Devon - 07/14/[address] [address] Ultrasound Report Signed Patient: Johny MansfieldMR#: [id number] : 1950Acct:[id number] Age/Sex: 73 / MADM Date: 06/10/24 Loc: HO.US Attending Dr: Michelle Zhang MD Ordering Physician: Michelle Zhang MD Date of Service: 06/10/24 Procedure(s): US arterial duplex LE BI Accession Number(s): [id number] cc: Michelle Zhang MD EXAMINATION: COLOR-FLOW DUPLEX IMAGING OF THE BILATERAL LOWER EXTREMITY ARTERIAL SYSTEM VELOCITY MEASUREMENTS THROUGHOUT THE FEMORAL ARTERIES CLINICAL INFORMATION: The patient is a 73 year-old woman with peripheral vascular disease. TECHNIQUE: Using a linear array transducer with grayscale, pulse and color Doppler modalities, ultrasound evaluation is performed of the bilateral lower extremity [place] arterial systems. RIGHT FEMORAL RUNOFF VELOCITIES: The [...] by: Frankie Real MD 07/14/2024 05:[address] [facility] Dictated By: Frankie Real MD Signed By: <Electronically signed by Frankie Real MD in OV> 07/14/24 1726 DD/ 1412 TD/TT: 06/10/24 1430 Jewel Bearing Driller: BESSY Authorbhupendra Provider Result Type Result Stat us Michelle Zhang MD CV VASCULAR PROCEDURES Edited Re sult - Final [facility] [address] [place], [place] [phone] documented in this encounter Visit Diagnoses Not on filedocumented in this encounter Additional Health Concerns Assessment Noted Time PHQ-9 Depression Total Score: 0 03/01/20 24 10:05 AM EDT documented as of this encounter Care Teams Carpet Inspector Finished Relationship Specialty Start Date End Date Michelle Zhang MD [address] [place] [address] PCP - General Family Medicine 04/15/12 Duke Betancourt, PharmD [address] [place] [address] Pharmacist Internal Medicine 08/26/22 documented as of this encounter
--- OUTSIDE RECORDS SUMMARY | 2024-08-13 20:02 | XMS_ITS | Encounter Summary ---
Author Organization [employer] Address [address] [facility] 7t [place] [address] Care Team Providers Care Electroneurodiagnostic Technologist Name Role Phone Michelle Zhang MD Primary Care Provider [phone] Duke Betancourt PharmD Unavailable [phone] Reason for Visit * Reason Onset Date Comments Durable Medical Equipment 03/28/2023 Encounter Details Date Type Department Care Team (Late st Contact Info) Description 03/28/2023 Telephone [facility] [address] [place], [place] [phone] Michelle Zhang MD [address] [place], [place] [phone] Durable Medical Equipment Social History Tobacco Use Types Packs/Day Years [...] encounter Miscellaneous Notes * Telephone Encounter - Monica Castellanos - 04/02/2023 1:09 PM EDT RX was generated and placed on provider desk for review and signature. * Telephone Encounter - Monica Castellanos - 03/31/2023 11:08 AM EDT Please see message below and advise. * Telephone Encounter - Shelbie Rankin - 03/28/2023 10:14 AM EDT Tc from [facility] requesting new diabetic shoes . Please call to clarify . documented in this encounter Plan of Treatment Upcoming Encounters Date Type Department Care Team (Late st Contact Info) Description 10/14/2024 11:00 AM EDT Office Visit [facility] [address] [place] [address] Michelle Zhang MD [address] [place] [address] documented as of this encounter Goals Goal Patient Goal Type Associated Problems Recent Progress Patient-Stated? Author Blood Pressure < 140/90 Blood Pressure 154/90( 025 11:06 AM EST) No Duke Betancourt, SanjayD documented as of this encounter Visit Diagnoses Not on filedocumented in this encounter Additional Health Concerns Assessment Noted Time PHQ-9 Depression Total Score: 0 09/10/19 10:48 AM EDT documented as of this encounter Care Teams Electroneurodiagnostic Technologist Relationship Specialty Start Date End Date Michelle Zhang MD [address] [place] [address] PCP - General Family Medicine 04/15/12 Duke Betancourt PharmD [address] [place] [address] Pharmacist Internal Medicine 08/26/22 documented as of this encounter
--- OUTSIDE RECORDS SUMMARY | 2024-08-13 20:02 | XMS_ITS | Encounter Summary ---
Author Organization [employer] Address [address] [place] [address] Care Team Providers Care Capacity Manager Name Role Phone Michelle Zhang MD Primary Care Provider [phone] Duke Betancourt PharmD Unavailable [phone] Encounter Details Date Type Department Care Team ([facility] st Contact Info) Description 07/15/2024 Telephone [facility] [address] [place], [place] [phone] Cuca Vera RN Social History Tobacco Use Types Packs/Day Years [...] encounter Miscellaneous Notes * Telephone Encounter - Cuca Vera RN - 07/15/2024 2:38 PM EST Tc to pt via bls id: [id number] per PCP Please inform patient / caregiver that arterial dopplershows decreased circulation of his legs. It can cause pain and poor wound healing (if he develops one). Please make sure to take care of his feet (no bare foot on the floor that is not clean). He will be referred to a vascular specialist for further evaluation. Thank you. Pt caregiver answered, verbalized understanding and no further questions or concerns at this time. * Telephone Encounter - Cuca Vera RN - 07/15/2024 2:37 PM EST ----- Message from Michelle Zhang MD sent at 07/15/2024 2:19 PM EST ----- Please inform patient / caregiver that arterial doppler shows decreased circulation of his legs. Itcan cause pain and poor wound healing (if he develops one). Please make sure to take care of his feet (no bare foot on the floor that is not clean). He will be referred to a vascular specialist for further evaluation. Thank you. documented in this encounter Plan of Treatment Upcoming Encounters Date Type Department Care Team (Late st Contact Info) Description 10/14/2024 11:00 AM EDT Office Visit [facility] [address] [place], [place] [phone] Michelle Zhang MD [address] [place] [phone] documented as of this encounter Goals Goal Patient Goal Type Associated Problems Recent Progress Patient-Stated? Author Blood Pressure < 140/90 Blood Pressure 154/90( 025 11:06 AM EST) No Duke Betancourt, PharmD documented as of this encounter Visit Diagnoses Not on filedocumented in this encounter Additional Health Concerns Assessment Noted Time PHQ-9 Depression Total Score: 0 03/01/20 24 10:05 AM EDT documented as of this encounter Care Teams Capacity Manager Relationship Specialty Start Date End Date Michelle Zhang MD [address] [place] [phone] PCP - General Family Medicine 04/15/12 Duke Betancourt, PharmD [address] [place] [phone] Pharmacist Internal Medicine 08/26/22 documented as of this encounter
--- OUTSIDE RECORDS SUMMARY | 2024-08-13 20:02 | XMS_ITS | Encounter Summary ---
Author Organization [employer] Address [address] [place] [address] Care Team Providers Care Reacher Name Role Phone Michelle Zhang MD Primary Care Provider [phone] Duke Betancourt PharmD Unavailable [phone] Encounter Details Date Type Department Care Team ([facility] st Contact Info) Description 08/10/2024 Telephone [facility] [address] [place], [place] [phone] Michelle Zhang MD [address] [place], [place] [phone] Social History Tobacco Use Types Packs/Day Years [...] Description 10/14/2024 11:00 AM EDT Office Visit [facility] [address] [place] [phone] Michelle Zhang MD [address] [place] [address] documented as of this encounter Goals Goal Patient Goal Type Associated Problems Recent Progress Patient-Stated? Author Blood Pressure < 140/90 Blood Pressure 154/90( 025 11:06 AM EST) No Duke Betancourt PharmD documented as of this encounter Visit Diagnoses Not on filedocumented in this encounter Additional Health Concerns Assessment Noted Time PHQ-9 Depression Total Score: 0 03/01/20 24 10:05 AM EDT documented as of this encounter Care Teams Reacher Relationship Specialty Start Date End Date Michelle Zhang MD [address] [place] [address] PCP - General Family Medicine 04/15/12 Duke Betancourt PharmD [address] [place] [phone] Pharmacist Internal Medicine 08/26/22 documented as of this encounter
--- OUTSIDE RECORDS SUMMARY | 2024-08-13 20:02 | XMS_ITS | Encounter Summary ---
Author Organization [facility], Address [address] [place] [address] Phone Care Team Providers Care Loan Funder Name Role Phone Michelle Zhang MD Primary Care Provider [phone] Reason for Visit * Reason Comments Med Refill Encounter Details Date Type Department Care Team (Late Contact Info) Description 10/28/2022 Refill [facility] [address] [place] [phone] Abel Ji DO [address] [place] [address] Social History Tobacco Use Types [...] Visit [facility], [address] [place] [address] Abel Ji DO [address] [place] [address] documented as of this encounter Visit Diagnoses Not on filedocumented in this encounter Care Teams Loan Funder Relationship Specialty Start Date End Date Michelle Zhang MD PCP - General 04/20/19 documented as of this encounter
--- OUTSIDE RECORDS SUMMARY | 2024-08-13 20:02 | XMS_ITS | Patient Health Record ---
Author Organization [facility] Address [address] [place] [address] Care Team Providers Care Para Professional Name Role Phone Leatha SUBRAMANIAN, Michelle Primary Care Provider Fausto Knight [phone] ALLERGIES No Known Allergies REASON FOR REFERRAL No Information MEDICATIONS Medication SIG (Take, Route, Frequency, Duration) Notes Start Date End Date Status Aspirin Adult Low Strength 81 MG Oral for 90 Active Dulcolax (colon prep) 5 MG take at 3:00 p.m and 7:00p.m. Orally two tablets twice a day for one day for 1 day 01/29/2023 Active Ezetimibe 10 MG TAKE 1 TABLET BY SHAUN TH AT BEDTIME Oral for 90 Active MiraLax (colon prep) 17 GM/SCOOP 1 238Gm bottle mixed with Gatorade or Crystal Light Orally begin at 5:00 p.m. the day before the procedure for 1 day 01/29/2023 Active metFORMIN HCl 1000 MG Oral for 90 Active Atorvastatin Calcium 80 MG Oral for 90 Active Carvedilol 25 MG Oral for 90 A ctive hydrALAZINE HCl 10 MG TAKE 1 TABLET BY M OUTH THREE TIMES DAILY IN THE MORNING, AT NOON, AND IN THE EVENING WITH FOOD Oral for 60 Active Jardiance 25 MG TAKE 1 TABLET BY SHAUN TH EVERY MORNING Diagnosis Unavailable Oral for 60 Active Mirtazapine 15 MG TAKE 1/2 TABLET BY M OUTH AT BEDTIME Oral for 60 Active Trulicity 0.75 MG/0.5ML Subcutaneous for 28 Active Spironolactone 25 MG Oral for 30 Active Pantoprazole Sodium 40 MG Oral for 60 Active Lisinopril 40 MG Oral for 90 A ctive SOCIAL HISTORY Tobacco Use: Social History Observation Description Date Details (start date - stop date) Never Smoker NA - NA Sex Assigned At : Social History Observation Description Sex Assigned At Unknown Tobacco Use/Smoking Question Answer Notes Patient is a nonsmoker Alcohol Screen Question Answer Notes Did you have a drink containing alcohol in the p ast year? No Points 0 Interpretation Negative PROBLEMS Problem Type ICD Code Onset Dates Problem Status W/U Status Risk SNOMED Code Notes Problem Colon cancer screening (Z12.11) Active confirmed 114279469 Problem Diverticulosis of large intestine without perforation or abscess without bleeding (K57.30) Active confirmed Diverticul ar disease of colon (450723011) Problem Long-term use of aspirin therapy (Z79.82) Active confirmed 017319938 PLAN OF TREATMENT Future Test Test Name Order Date COLONOSCOPY 01/29/2023 Insurance Providers Payer Name Payer Address Payer Phone Subscriber Number Group Number Insured Name Patient Relationship to Insured Coverage Start Date Coverage End Date [facility] [address] [place] [address] [id number] LIANA RAMOS Self - patient is the insured MEDICARE OF [place] [address] [facility] [place] [address] [id number] LIANA RAMOS Self - patient is the insured MEDICAL (GENERAL) HISTORY Medical History History ICD Code NIDDM Hyperlipidemia Hypertension Ischemic heart disease- Dr. Interiano Hx of H pylori Stage 3 chronic kidney disease GERD Negative colonoscopy [place] [address] 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
--- OUTSIDE RECORDS SUMMARY | 2024-08-13 20:02 | XMS_ITS | Encounter Summary ---
Author Organization [employer] Address [address] [facility] 7t [place] [address] Care Team Providers Care Sheet Sewer Name Role Phone Michelle Zhang MD Primary Care Provider [phone] Duke Betancourt PharmD Unavailable [phone] Reason for Visit * Reason Onset Date Comments Reschedule 05/20/2023 Encounter Details Date Type Department Care Team (Late st Contact Info) Description 05/20/2023 Telephone [facility] MED[facility]INE [address] [place], [place] [phone] Michelle Zhang MD [address] [place], [place] [phone] Reschedule Social History Tobacco Use Types Packs/Day Years [...] encounter Miscellaneous Notes * Telephone Encounter - Pilar Posada - 05/20/2023 2:08 PM EST Tc from Jordana requesting r/s HDF appt, [place] getting [place] [facility] documented in this encounter Plan of Treatment Upcoming Encounters Date Type Department Care Team (Late st Contact Info) Description 10/14/2024 11:00 AM EDT Office Visit [facility] [address] [place] [address] Michelle Zhang MD [address] [place] [address] documented as of this encounter Goals Goal [...] documented as of this encounter Care Teams Sheet Sewer Relationship Specialty Start Date End Date Michelle Zhang MD [address] [place] [address] PCP - General Family Medicine 04/15/12 Duke Betancourt PharmD [address] [place] [address] Pharmacist Internal Medicine 08/26/22 documented as of this encounter
--- OUTSIDE RECORDS SUMMARY | 2024-08-13 20:02 | XMS_ITS | Encounter Summary ---
Author Organization [employer] Address [address] [place] [address] 7t [place] [address] Care Team Providers Care Wet Roller Name Role Phone Michelle Zhang MD Primary Care Provider [phone] Duke Betancourt PharmD Unavailable [phone] Reason for Visit * Reason Onset Date Comments Appointment Request 09/03/2022 Encounter Details Date Type Department Care Team ([facility] st Contact Info) Description 09/03/[address] [facility] MEDICINE [address] [place], [place] [phone] Michelle Zhang MD [address] [place], [place] [phone] Appointment Request Social History Tobacco Use Types Packs/Day Years Used Date Smoking Tobacco: Never Assessed Sex and Gender Information Value Date Recorded [...] suspected to have Coronavirus/COVID-19? No / Unsure 08/26/2022 9:46 AM EDT documented as of this encounter Miscellaneous Notes * Telephone Encounter - Dee Owens - 09/03/2022 2:14 PM EDT Tc from pt requesting a physical appt added to the appt that is already schedule for 09/09/2022 if possible. Please contact pt [phone] documented in this encounter Plan of Treatment Upcoming Encounters Date Type Department Care Team (Late st Contact Info) Description 10/14/2024 11:00 AM EDT Office Visit [facility] [address] [place] [address] Michelle Zhang MD [address] [place] [address] documented as of this encounter Goals Goal Patient Goal Type Associated Problems Recent Progress Patient-Stated? Author Blood Pressure < 140/90 Blood Pressure 154/90( 025 11:06 AM EST) No Duke Betancourt, PharmD documented as of this encounter Visit Diagnoses Not on filedocumented in this encounter Care Teams Wet Roller Relationship Specialty Start Date End Date Michelle Zhang MD [address] [place] [address] PCP - General Family Medicine 04/15/12 Duke Betancourt, PharmD [address] [place] [address] Pharmacist Internal Medicine 08/26/22 documented as of this encounter
--- OUTSIDE RECORDS SUMMARY | 2024-08-13 20:02 | XMS_ITS | Encounter Summary ---
Author Organization [employer] Address [address] [place] [address] 7t [place] [address] Care Team Providers Care Eligibility Supervisor Name Role Phone Michelle Zhang MD Primary Care Provider [phone] Duke Betancourt PharmD Unavailable [phone] Reason for Visit * Reason Onset Date Comments Referral 05/17/2022 Encounter Details Date Type Department Care Team ([facility] st Contact Info) Description 05/17/2022 Telephone [facility] MEDICINE [address] [place], [place] [phone] Michelle Zhang MD [address] [place], [place] [phone] Referral Social History Tobacco Use Types Packs/Day Years Used Date Smoking Tobacco: Never Assessed Sex and Gender Information Value Date Recorded Sex Assigned at Male 04/15/2022 10:14 AM EDT Legal Sex Male 10:14 AM EDT Gender Identity Male 04/15/2022 10:14 AM EDT Sexual Orientation Straight 04/15/2022 10 :14 AM EDT documented as of this encounter Miscellaneous Notes * Telephone Encounter - Raquel Jennings RN - 05/28/2022 1:27 PM EST Telephone call to pt in regards to changing appt. Advised pt to call back with any questions or concerns. Let pt know that to change appt he must call the the hospital. Pt verbalizes understanding and agrees with plan. * Telephone Encounter - Yvette Mc - 05/28/2022 9:46 AM EST Tc from Jordana (on hipaa) requesting referral for colonoscopy gets changed for pt to do it after since he will be in [place] for the holidays. Please contact pt at [phone] * Telephone Encounter - Raquel Jennings RN - 05/21/2022 12:13 PM EST Pt's EC came in to ask ab out drops, let FD know about messages in chart see today's encounter. * Telephone Encounter - Raquel Jennings RN - 05/21/2022 11:18 AM EST Telephone call to pt in regards to asking if his wire insulator can rx the drops. Call not answered, left vm to call back nurses when able. * Telephone Encounter - Wendy Motta RN - 05/20/2022 12:32 PM EST Pt's spouse walked in requesting eye drops for dry eye. Queued eye drops that might be covered by insurance per [facility] (many not covered). Please review and advise. * Telephone Encounter - Arti Pruitt RN - 05/17/2022 10:43 AM EST LVM to return call to [facility] triage line. * Telephone Encounter - Mel Irizarry - 05/17/2022 8:54 AM EST Symptom: Earache Outcome: Schedule a same-day appointment or talk to a nurse or provider today Reason: No high acuity concerns reported by caller The caller accepted this outcome Tc from Jordana (friend) stating pt has left eye dryness and ear pain. *Jordana Murrieta is on hippa Please contact in Hungarian at [phone] documented in this encounter Plan of Treatment Upcoming Encounters Date Type Department Care Team ([facility] st Contact Info) Description 10/14/2024 11:00 AM EDT Office Visit [facility] MEDICINE [address] [place], [place] [phone] Michelle Zhang MD [address] [place] [address] documented as of this encounter Visit Diagnoses Not on filedocumented in this encounter Care Teams Eligibility Supervisor Relationship Specialty Start Date End Date Michelle Zhang MD [address] [place] [address] [phone] PCP - General Family Medicine 04/15/12 Duke Betancourt, PharmD [address] [place] [address] [phone] Pharmacist Internal Medicine 08/26/22 documented as of this encounter
--- OUTSIDE RECORDS SUMMARY | 2024-08-13 20:02 | XMS_ITS | Encounter Summary ---
Author Organization [employer] Address [address] [place] [address] 7 [place] [address] Care Team Providers Care Civil Division Commander Deputy Sheriff Name Role Phone Michelle Zhang MD Primary Care Provider [phone] Duke Betancourt PharmD Unavailable [phone] Encounter Details Date Type Department Care Team (Late Contact Info) Description 11/20/2022 [facility] [employer] [address] [place], [place] [phone] Michelle Zhang MD [address] [place], [place] [phone] Social History Tobacco Use Types Packs/Day Years [...] Department Care Team (Late Contact Info) Description 10/14/2024 11:00 AM EDT Office Visit [facility] MEDICINE [address] [place], [place] [phone] Michelle Zhang MD [address] [place] [address] documented as of this encounter Goals Goal [...] documented as of this encounter Care Teams Civil Division Commander Deputy Sheriff Relationship Specialty Start Date End Date Michelle Zhang MD [address] [place] [address] PCP - General Family Medicine 04/15/12 Duke Betancourt, PharmD [address] [place] [address] Pharmacist Internal Medicine 08/26/22 documented as of this encounter
--- OUTSIDE RECORDS SUMMARY | 2024-08-13 20:02 | XMS_ITS | Encounter Summary ---
Author Organization [employer] Address [address] [facility] 7t [place] [address] Care Team Providers Care Press Shop Supervisor Name Role Phone Michelle Zhang MD Primary Care Provider [phone] Duke Betancourt PharmD Unavailable [phone] Reason for Visit * Reason Onset Date Comments FYI 06/03/2023 Encounter Details Date Type Department Care Team ([facility] st Contact Info) Description 06/03/2023 Telephone [facility] MEDICINE [address] [place], [place] [phone] Michelle Zhang MD [address] [place], [place] [phone] FYI Social History Tobacco Use Types Packs/Day Years [...] * Telephone Encounter - Dee Owens - 06/03/2023 10:57 AM EST Tc from [facility] with [facility] stating that their will be discharging pt due to not being ableto reach pt. documented in this encounter Plan of Treatment Upcoming Encounters Date Type Department Care Team (Late st Contact Info) Description 10/14/2024 11:00 AM EDT Office Visit [facility] MEDICINE [address] [place] [address] Michelle Zhang MD [address] [place] [address] documented as of this encounter Goals Goal [...] documented as of this encounter Care Teams Press Shop Supervisor Relationship Specialty Start Date End Date Michelle Zhang MD [address] [place] [address] PCP - General Family Medicine 04/15/12 Duke Betancourt PharmD [address] [place] [address] Pharmacist Internal Medicine 08/26/22 documented as of this encounter
--- OUTSIDE RECORDS SUMMARY | 2024-08-13 20:02 | XMS_ITS | Encounter Summary ---
Author Organization [employer] Address [address] [place] [address] 7 [place] [address] Care Team Providers Care Spanish Translator Name Role Phone Michelle Zhang MD Primary Care Provider [phone] Duke Betancourt PharmD Unavailable [phone] Reason for Visit * Reason Comments Med Refill Encounter Details Date Type Department Care Team (Late Contact Info) Description 02/16/2023 Refill [facility] MEDICINE [address] [place] [phone] Michelle Zhang MD [address] [place], [place] [phone] Social History Tobacco Use Types Packs/Day Years [...] Description 10/14/2024 11:00 AM EDT Office Visit [facility] MEDICINE [address] [place] [address] [phone] Michelle Zhang MD [address] [place] [address] documented as of this encounter Goals Goal [...] documented as of this encounter Care Teams Spanish Translator Relationship Specialty Start Date End Date Michelle Zhang MD [address] [place] [address] PCP - General Family Medicine 04/15/12 Duke Betancourt, PharmD [address] [place] [address] Pharmacist Internal Medicine 08/26/22 documented as of this encounter
--- OUTSIDE RECORDS SUMMARY | 2024-08-13 20:02 | XMS_ITS ---
Author Organization [facility] Address [address] [facility] [address] [place] [phone] Care Team Providers Care Polarity Tester Name Role Phone Leatha SUBRAMANIAN, Michelle Primary Care Provider Fausto Knight [phone] REASON FOR VISIT No Trulicity after 04/20/2023 for the 04/28 procedure. Encounters Encounter Location Date Provider Diagnosis [facility] [address] [facility] [address] [place] [phone] 04/17/2023 Fausto Little PLAN OF TREATMENT No Information
--- OUTSIDE RECORDS SUMMARY | 2024-08-13 20:02 | XMS_ITS | Encounter Summary ---
Author Organization [employer] Address [address] [place] [address] 7t [place] [address] Care Team Providers Care Foreign Language Stenographer Name Role Phone Michelle Zhang MD Primary Care Provider [phone] Duke Betancourt PharmD Unavailable [phone] Reason for Referral * Consultation (Routine) - Closed Specialty Diagnoses / Procedures Referred By Contac t Referred To Contact Vascular Surgery Diagnoses PAD (peripheral artery disease) ([facility]) Michelle Zhang MD [address] [place] [address] Phone: tel: fax: [facility] Referral ID Status Reason Start Date Expiration Date V isits Requested Visits Authorized [id number] Closed Specialty Services Required 07/15/2024 07/15/2025 1 1 Encounter Details Date Type Department Care Team (Late st Contact Info) Description 07/15/2024 Orders Only [facility] MED[facility]INE [address] [place], [place] [phone] Michelle Zhang MD [address] [place], [place] [phone] PAD (peripheral artery disease) ([facility]) (Primary Dx) Social History Tobacco Use Types [...] Description 10/14/2024 11:00 AM EDT Office Visit [facility]INE [address] [place] [address] Michelle Zhang MD [address] [place] [address] Scheduled Referrals Name Type Priority Associated Diagnoses Orde r Schedule Referral to Vascular Surgery Outpatient Referral Routine PAD (peripheral artery disease) ([facility]) Expected: 07/15/2024 (Approximate), Expires: 07/15/2025 documented as of this encounter Goals Goal Patient Goal Type Associated Problems Recent Progress Patient-Stated? Author Blood Pressure < 140/90 Blood Pressure 154/90( 025 11:06 AM EST) No Duke Betancourt PharmD documented as of this encounter Procedures Procedure Name Priority Date/Time Associated Diagnosis Comments XR HAND WRIST LT Routine 08/13/2024 2:40 PM EST XR KNEE 3 VIEWS RIGHT Routine 08/13/2024 2:40 PM EST documented in this encounter Results * XR HAND WRIST LT (08/13/2024 2:40 PM EST) Anatomical Region Laterality Modality Abdomen Radiographic Rupal ging 08/13/2024 2:40 PM EST Narrative 08/13/2024 3:41 PM EST ? [facility] ?[address] ?[place] [address] ?XRay Report ? Signed ? Patient: Albaladejo,Johny ?MR#: [id number] ?? [id number] ? : 1950 ?Acct:[id number] ? Age/Sex: 73 / M ?ADM Date: 08/13/24 ? Loc: HO.ED ? Attending Dr: ? Ordering Physician: Zuleyma Ann ?? Date of Service: 08/13/24 ?? Procedure(s): XR hand wrist LT ?? Accession Number(s): [id number] ? cc: Zuleyma Ann; Michelle Zhang MD ? EXAMINATION: ?? XR HAND/WRIST, LEFT [...] DD/ 1440 ? TD/TT: 08/13/24 1505 ? Services Account Manager: ? Procedure Note Donotuseinterpreter, Image - 08/13/[address] [address] XRay Report Signed Patient: Johny MansfieldMR#: [id number] : 1950Acct:[id number] Age/Sex: 73 / MADM Date: 08/13/24 Loc: HO.ED Attending Dr: Ordering Physician: Zuleyma Ann Date of Service: 08/13/24 Procedure(s): XR hand wrist LT Accession Number(s): [id number] cc: Zuleyma Ann; Michelle Zhang MD EXAMINATION: XR HAND/WRIST, LEFT CLINICAL INFORMATION: [...] by: Ga Hurt MD 08/13/2024 03:38 PM [facility] Dictated By: Ga Hurt MD Signed By: <Electronically signed by Ga Hurt MD in OV> 08/13/24 1538 DD/ 1440 TD/TT: 08/13/24 1505 Services Account Manager: [facility] External Provider IMG XR PROCEDURES Final Result * XR Knee 3 Views Right (08/13/2024 2:40 PM EST) Anatomical Region Laterality Modality Lower Extremities, Knee Right Radiogra phic Imaging 08/13/2024 2:40 PM EST Narrative 08/13/2024 3:38 PM EST ? [facility] ?[address] ?[place] [address] ?XRay Report ? Signed ? Patient: Albaladejo,Johny ?MR#: [id number] ?? [id number] ? : 1950 ?Acct:[id number] ? Age/Sex: 73 / M ?ADM Date: 08/13/24 ? Loc: HO.ED ? Attending Dr: ? Ordering Physician: Zuleyma Ann ?? Date of Service: 08/13/24 ?? Procedure(s): XR knee RT 3V ?? Accession Number(s): [id number] ? cc: Zuleyma Ann; Michelle Zhang MD ? EXAMINATION: ?? XR KNEE, RIGHT [...] DD/ 1440 ? TD/TT: 08/13/24 1505 ? Services Account Manager: ? Procedure Note Jyotsna, Devon - 08/13/2024 [place] [address] [place] [address] XRay Report Signed Patient: Johny MansfieldMR#: [id number] : 1950Acct:[id number] Age/Sex: 73 / MADM Date: 08/13/24 Loc: HO.ED Attending Dr: Ordering Physician: Zuleyma Ann Date of Service: 08/13/24 Procedure(s): XR knee RT 3V Accession Number(s): [id number] cc: Zuleyma Ann; Michelle Zhang MD EXAMINATION: XR KNEE, RIGHT CLINICAL INFORMATION: [...] by: Ga Hurt MD 08/13/2024 03:35 PM [facility] Dictated By: Ga Hurt MD Signed By: <Electronically signed by Ga Hurt MD in OV> 08/13/24 1535 DD/ 1440 TD/TT: 08/13/24 1505 Services Account Manager: [facility] External Provider IMG XR PROCEDURES Final Result documented in this encounter Visit Diagnoses Diagnosis PAD (peripheral artery disease) ([facility])- Primary Unspecified peripheral vascular disease documented in this encounter Additional Health Concerns Assessment Noted Time PHQ-9 Depression Total Score: 0 03/01/20 24 10:05 AM EDT documented as of this encounter Care Teams Foreign Language Stenographer Relationship Specialty Start Date End Date Michelle Zhang MD [address] [place] [address] PCP - General Family Medicine 04/15/12 Duke Betancourt, Wolf [address] [place] [address] Pharmacist Internal Medicine 08/26/22 documented as of this encounter
--- OUTSIDE RECORDS SUMMARY | 2024-08-13 20:02 | XMS_ITS | Encounter Summary ---
Author Organization [facility], Address [address] [place] [address] Phone Care Team Providers Care Pipe Foreman Name Role Phone Michelle Zhang MD Primary Care Provider Encounter Details Date Type Department Care Team (Late st Contact Info) Description 02/03/2023 Documentation Only [facility] [address] [place] [address] Abel Ji DO [address] [place] [address] Social History Tobacco Use Types [...] Visit [facility] [address] [place] [address] Abel Ji DO [address] [place] [address] documented as of this encounter Visit Diagnoses Not on filedocumented in this encounter Care Teams Pipe Foreman Relationship Specialty Start Date End Date Michelle Zhnag MD PCP - General 04/20/19 documented as of this encounter
== END 2024-08-13 20:02 | disposition left against medical advice (07) ==
LOC: HO.ED 20:00
PROVIDERS: Emergency Provider Emergency Medicine; PCP Family Medicine
DX: S61.211A Laceration without foreign body of left index finger without damage to nail, initial encounter (principal); S61.215A Laceration without foreign body of left ring finger without damage to nail, initial encounter; M25.561 Pain in right knee; M79.642 Pain in left hand; M25.532 Pain in left wrist; W26.9XXA Contact with unspecified sharp object(s), initial encounter; Y93.9 Activity, unspecified; Y92.811 Bus as the place of occurrence of the external cause; Y99.8 Other external cause status
CPT/HCPCS: 73110; 73130; 73562; 99281; 99283

== ENCOUNTER → 2024-08-13 14:40 | Outpatient (BNV) | payer OTHER, SELFPAY | PROVIDERS: PCP Family Medicine; Visit Provider Radiology Diagnostic Radiology | DX: S61.211A Laceration without foreign body of left index finger without damage to nail, initial encounter (principal); M79.642 Pain in left hand; M25.561 Pain in right knee | CPT/HCPCS: 73130; 73562 ==

== ENCOUNTER → 2024-08-24 07:37 | Outpatient (REF) | payer OTHER, SELFPAY ==
--- NOTE | ~2024-08-24 | NM_ITS ---
EXERCISE MYOCARDIAL PERFUSION STUDY INDICATION: Cardiomyopathy TECHNIQUE: The patient was brought in for an exercise perfusion study on 08/24/2024. Patient performed exercise as per Cortes protocol and was injected 25 mCi of sestamibi once target heart rate was achieved. Images were obtained using the SPECT gamma camera interlaced with the gating device. Images were obtained in supine position. Resting perfusion study was performed on 08/25/2024. Patient was administered 25 mCi of sestamibi intravenously at rest. Images were then obtained in supine position. Total DLP 74 mGy-cm. Images were processed with the software and compared side to side in short axis, horizontal long axis and vertical long axis views. FINDINGS: Raw aquisition reviewed. The stress perfusion study showed diminished tracer uptake along the inferior wall. There is improvement with CT attenuation correction suggestive of diaphragmatic attenuation artifact. The gated study shows diminished LV systolic function with calculated LVEF of 38%. LV cavity is normal in size. The gated study shows globally reduced wall thickening and contraction of segments. Resting study shows diminished tracer uptake along the inferior wall. There is improvement with CT attenuation correction suggestive of diaphragmatic attenuation artifact. Gating at rest reveals globally reduced wall motion with ejection fraction at 51%. The findings are consistent with fixed inferior perfusion defect. No clear reversible defects. NM/NM cardiolite stress test IMPRESSION: 1. Myocardial perfusion imaging study shows fixed inferior defect possibly from diaphragmatic attenuation artifact. Less likely prior inferior infarct. Otherwise normal perfusion. 2. Gated LVEF is 38% during stress and 51% during rest. Correlate with echocardiogram. 3. Transient ischemic dilatation not present. EKG component of the test reported separately. Electronically signed by: Alvaro Arellano MD 08/26/2024 12:35 PM EDT
--- OUTSIDE RECORDS SUMMARY | 2024-08-24 07:39 | XMS_ITS | Encounter Summary ---
Author Organization [facility], Address [address] [place] [address] Phone Care Team Providers Care Environmental Science Instructor Name Role Phone Michelle Zhang MD Primary Care Provider [phone] Reason for Visit * Reason Comments Med Refill Encounter Details Date Type Department Care Team (Late Contact Info) Description 10/28/2022 [facility]ill [facility] [address] [place] [phone] Abel Ji DO [address] [place] [address] Social History Tobacco Use Types [...] Department Care Team (Late Contact Info) Description 12/30/2024 2:45 PM EDT Office Visit [facility], [address] [place] [address] Abel Ji DO [address] [place] [address] documented as of this encounter Visit Diagnoses Not on filedocumented in this encounter Care Teams Environmental Science Instructor Relationship Specialty Start Date End Date Michelle Zhang MD PCP - General 04/20/19 documented as of this encounter
--- OUTSIDE RECORDS SUMMARY | 2024-08-24 07:39 | XMS_ITS | Encounter Summary ---
Author Organization [facility] [employer] Address [address] [place] [address] Care Team Providers Care Produce Laborer Name Role Phone Michelle Zhang MD Primary Care Provider [phone] Duke Betancourt PharmD Unavailable [phone] Encounter Details Date Type Department Care Team ([facility] st Contact Info) Description 11/21/2023 Orders Only [facility] MEDICINE [address] [place], [place] [phone] Michelle Zhang MD [address] [place], [place] [phone] Bradycardia (Primary Dx) Social History Tobacco Use [...] Care Team (Late st Contact Info) Description 09/02/2024 11:15 AM EDT Office Visit [facility] MEDICINE [address] [place] [phone] Michelle Zhang MD [address] [place] [phone] 10/14/2024 11:00 AM EDT Office Visit [facility] MEDICINE [address] [place] [phone] Michelle Zhang MD [address] [place] [address] [phone] documented as of this encounter Goals Goal [...] documented as of this encounter Care Teams Produce Laborer Relationship Specialty Start Date End Date Michelle Zhang MD [address] [place] [address] [phone] PCP - General Family Medicine 04/15/12 Duke Betancourt PharmD [address] [place] [address] [phone] Pharmacist Internal Medicine 08/26/22 documented as of this encounter
--- OUTSIDE RECORDS SUMMARY | 2024-08-24 07:39 | XMS_ITS | Encounter Summary ---
Author Organization [facility] Address [address] [place] [address] Phone Care Team Providers Care Watch Assembler Name Role Phone Michelle Zhang MD Primary Care Provider [phone] Encounter Details Date Type Department Care Team (Late Contact Info) Description 12/24/2023 Documentation Only [facility] [address] [place] [address] Zahira Cazares [address] [place] [address] Social History Tobacco Use Types [...] Care Team (Late st Contact Info) Description 12/30/2024 2:45 PM EDT Office Visit [facility] [address] [place] [address] Abel Ji DO [address] [facility] [place] [address] documented as of this encounter Visit Diagnoses Not on filedocumented in this encounter Care Teams Watch Assembler Relationship Specialty Start Date End Date Michelle Zhang MD PCP - General 04/20/19 documented as of this encounter
--- OUTSIDE RECORDS SUMMARY | 2024-08-24 07:39 | XMS_ITS | Patient Health Record ---
Author Organization [facility] Address [address] [place] [address] Care Team Providers Care Jewel Supervisor Name Role Phone Leatha SUBRAMANIAN, Michelle Primary Care Provider Fausto Knight [phone] Allergies No Known Allergies Reason For Referral No Information Medications Medication SIG (Take, Route, Frequency, Duration) Notes [...] 40 MG Oral for 90 A ctive Social History Tobacco Use: Social History Observation Description Date Details (start date - stop date) Never Smoker NA - NA Tobacco Use/Smoking Question Answer Notes Patient is a nonsmoker Alcohol Screen Question Answer Notes Did you have a drink containing alcohol in the p ast year? No Points 0 Interpretation Negative Problems Problem Type SNOMED Code ICD Code Onset Dates Problem Status W/U Status Risk Notes Problem 228477215 Colon cancer screening (Z12.11) Active confirmed Problem Diverticular disease of colon (041728129) Diverticulosis of large intestine without perforation or abscess without bleeding (K57.30) Active confirmed Problem 909439049 Long-term use of aspirin therapy (Z79.82) Active confirmed Plan Of Treatment Future Test Test Name Order Date COLONOSCOPY 01/29/2023 Insurance Providers Payer Name Payer Address Payer Phone Subscriber Number Group Number Insured Name Patient Relationship to Insured Coverage Start Date Coverage End Date [facility] [address] Attn [place] [id number] [facility] Self - patient is the insured MEDICARE OF [place] [address] [place] [address] [id number] [facility] Self - patient is the insured Medical (General) History Medical History History ICD Code NIDDM Hyperlipidemia Hypertension Ischemic heart disease- Dr. Interiano Hx of H pylori Stage 3 chronic kidney disease GERD Negative colonoscopy [place] [address] Jesse barrios Denies [place],CVA,Lung disease Coronary artery diasease with CABG as be low Surgical History Surgery Date(Month/Year) CCY 3V CABG 01/21/2017
--- OUTSIDE RECORDS SUMMARY | 2024-08-24 07:39 | XMS_ITS | Clinical Summary ---
Author Organization [employer] Address [address] [place] [address] [address] [place] [address] Care Team Providers Care Coal Sample Tester Name Role Phone Michelle Davis MD Primary Care Provider [phone] Duke Betancourt PharmD Unavailable [phone] Allergies No known active allergies Medications Nutritional [...] a, without long-term current use of insulin ([facility]) 1 kit 3 times daily. Check blood sugar three times daily 1 kit 023 Active Blood Pressure Monitor kit Check blood pressure once daily and as needed 1 kit 023 Active Easy Touch Pen [place] 31G X 8 MM misc USE FOUR [...] disease, without long-term current use of insulin ([facility]) TEST BLOOD SUGAR 4-6 TIMES PER DAY 150 strip 11 024 Active ezetimibe (Zetia) 10 MG tablet TAKE 1 TABLET BY MOUTH AT BEDTIME 90 tablet 3 024 Active Jardiance 25 MGIndications:T ype 2 diabetes mellitus with other specified complication, unspecified whether automatic lehr operator insulin use ([facility]) TAKE 1 TABLET BY MOUTH EVERY MORNING [...] (11/18/2023 12:34 PM EDT): - will request demurrage agent for Holter monitor - patient seems to have bradycardia with heart rate in 40s at home Ingrown toenail of both feet 09/05/2023 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 09/05/2023 Assessment & Plan (09/05/2023 9:59 AM EDT): - will prescribe diabetic footwear - will refer to braille duplicating machine operator for further evaluation of ingrown toenails Constipation [...] on lifestyle modifications - Follow up with demurrage agent as scheduled - Continue working on risk [...] on lifestyle modifications - Follow up with demurrage agent as scheduled - Continue working on risk [...] on lifestyle modifications - Follow up with demurrage agent as scheduled - Continue working on risk [...] on lifestyle modifications - Follow up with demurrage agent as scheduled - Continue working on risk [...] Jardiance for DM - Follow up with demurrage agent as scheduled - Continue working on risk [...] from prior. Pt was recently admitted to [facility] [place] [place] with CHF exacerbation. BNP up to 2270. While in the hospital diuresed with IV Lasix. Then read[place] [facility] [place] later for COVID, CHF, PRITI. On [...] had been as high as 2.0 at [facility] Seen by Cardiology 06/02/2023 who stated that [...] & Plan (07/11/2024 1:07 PM EST): - School Principal: Dr. Ji - sohail following with plant nursery worker - continue ARB and SGLT2i - avoid nephrotoxins - renal dose medication Assessment & Plan (03/01/2024 10:46 AM EDT): - School Principal: Dr. Ji - sohail following with plant nursery worker - avoid nephrotoxins - renal dose medication Assessment & Plan (11/18/2023 11:34 AM EDT): - School Principal: Dr. Ji - sohail following with plant nursery worker - avoid nephrotoxins - renal dose medication Assessment & Plan (09/04/2023 9:59 PM EDT): - School Principal: Dr. Ji - sohail following with plant nursery worker - avoid nephrotoxins - renal dose medication Assessment & Plan (02/22/2023 4:46 AM EDT): - School Principal: Dr. Ji - sohail following with plant nursery worker - avoid nephrotoxins - renal dose medication Assessment & Plan (11/17/2022 4:27 PM EDT): - School Principal: Dr. Garrison sauceda following with plant nursery worker - avoid nephrotoxins - renal dose medication [...] PM EST): -Following with Dr. Interiano at [facility] [place] [place], last seen in Feb 2024. -quadruple CABG [...] Enntresto in Feb 2024 - Follow-up with demurrage agent as scheduled Assessment & Plan (03/01/2024 10:44 AM EDT): -Following with Dr. Interiano at [facility] [place] [place], last seen in September 2023. -quadruple CABG [...] 2023 due to PRITI. - Follow-up with demurrage agent as scheduled Assessment & Plan (11/18/2023 12:31 PM EDT): -Following with Dr. Interiano at [facility] [place] [place], last seen in September 2023. -quadruple CABG [...] 2023 due to PRITI. - Follow-up with demurrage agent as scheduled Assessment & Plan (09/05/2023 9:52 AM EDT): -Following with Dr. Interiano at [facility] [place] [place], last seen in May 2023. -quadruple CABG [...] 2023 due to PRITI. - Follow-up with demurrage agent as scheduled Assessment & Plan (02/22/2023 4:42 AM EDT): -Following with Dr. Interiano at [facility] [place] [place] - TTE: 02/08/19 Echo LVEF 40-45%, mild-mod LV systolic dysfunction, mild mitral regurgitation - Most recent stress echo on 02/14/22: LVEF 55%, 47% with stress. No ischemia. - Continue Carvedilol, lisinopril, spironolactone and ASA. - Continue Jardiance for DM - Follow-up as scheduled Assessment & Plan (11/17/2022 4:25 PM EDT): -Following with Dr. Interiano at [facility] [place] [place] - TTE: 02/08/19 Echo LVEF 40-45%, mild-mod LV systolic dysfunction, mild mitral regurgitation - Most recent stress echo on 02/14/22: LVEF 55%, 47% with stress. No ischemia. - Continue Carvedilol, lisinopril, spironolactone and ASA. - Continue Jardiance for DM Assessment & Plan (09/16/2022 8:41 AM EDT): -Following with Dr. Interiano at [facility] [place] [place] - TTE: 02/08/19 Echo LVEF 40-45%, mild-mod [...] Pt has worked with CDE RN and fruit or nut picker in the past - Continue working on [...] Pt has worked with CDE RN and fruit or nut picker in the past - Continue working on [...] Pt has worked with CDE RN and fruit or nut picker in the past - Continue working on [...] Pt has worked with CDE RN and fruit or nut picker in the past - Continue working on [...] Pt has worked with CDE RN and fruit or nut picker in the past Continue working on lifestyle [...] Pt has worked with CDE RN and fruit or nut picker in the past - Continue working on [...] Pt has worked with CDE RN and fruit or nut picker in the past - Continue working on [...] Pt has worked with CDE RN and fruit or nut picker in the past - Continue working on [...] Pt has worked with CDE RN and fruit or nut picker in the past - Continue working on [...] per patient's caregiver -comanaged with our pharmacist, demurrage agent, and plant nursery worker. -continue working on lifestyle modifications -decrease Amlodipine to 5 mg daily. -continue Carvedilol 25 mg bid -continue Spironolactone 25 mg daily (patient is developing mild gynecomastia, but tolerable) -continue sacubitril / valsartan 24-26 mg daily -continue furosemide 20 mg daily as directed by demurrage agent and plant nursery worker Assessment & Plan (03/01/2024 10:45 AM EDT): -goal BP <140/90 per JNC-8, < 130/80 per ACC/AHA guideline -BP at goal -comanaged with our pharmacist, demurrage agent, and plant nursery worker. -continue working on lifestyle modifications -decrease Amlodipine to 5 mg daily. -continue Carvedilol 25 mg bid -continue Spironolactone 25 mg daily -continue valsartan 40 mg daily -continue furosemide 20 mg daily as directed by demurrage agent and plant nursery worker -requested 24 hour BP monitoring with plant nursery worker; check its status -follow up in 3 [...] -BP at goal -comanaged with our pharmacist, demurrage agent, and plant nursery worker. -continue working on lifestyle modifications -decrease Amlodipine to 5 mg daily. -continue Carvedilol 25 mg bid -continue Spironolactone 25 mg daily -continue valsartan 40 mg daily -continue furosemide 20 mg daily as directed by demurrage agent and plant nursery worker -requested 24 hour BP monitoring with plant nursery worker; check its status -follow up in 3 mo or sooner prn Assessment & Plan (09/05/2023 9:46 AM EDT): -goal BP <140/90 per JNC-8, < 130/80 per ACC/AHA guideline -BP not at goal -comanaged with our pharmacist, demurrage agent, and plant nursery worker. -continue working on lifestyle modifications -continue Lisinopril 40 mg daily -decrease Amlodipine to 5 mg daily. -continue Carvedilol 25 mg bid -restart Spironolactone 25 mg daily -discontinue hydralazine 10 mg tid -continue furosemide as directed by demurrage agent and plant nursery worker; currently taking 20 mg MWF, and taking extra for weight gain and holding for weight loss and symptomatic hypotension -requested 24 hour BP monitoring with plant nursery worker; check its status -follow up in 3 mo or sooner prn Assessment & Plan (06/05/2023 2:02 PM EST): Pt here for a HDF -comanaged with our pharmacist, demurrage agent, and plant nursery worker. In the Hospital Lisinopril was discontinued due [...] normal at home -comanaged with our pharmacist, demurrage agent, and plant nursery worker. -continue working on lifestyle modifications -continue Lisinopril 40 mg daily -continue Amlodipine 10mg daily. -continue Carvedilol 25 mg bid -continue Spironolactone 25 mg daily -continue hydralazine to 10 mg tid, decreased dose from 25 mg tid to 10 mg tid on 04/05/21. -pt was advised to check BP before taking hydralizine. hold if systolic BP <110 -requested 24 hour BP monitoring with plant nursery worker; check its status -follow up in 3 mo or sooner prn Assessment & Plan (11/17/2022 4:25 PM EDT): -goal BP <140/90 per JNC-8, < 130/80 per ACC/AHA guideline -BP not at goal, reportedly normal at home -comanaged with our pharmacist, demurrage agent, and plant nursery worker. -continue working on lifestyle modifications -continue Lisinopril 40 mg daily -continue Amlodipine 10mg daily. -continue Carvedilol 25 mg bid -continue Spironolactone 25 mg daily -continue hydralazine to 10 mg tid, decreased dose from 25 mg tid to 10 mg tid on 04/05/21. -pt was advised to check BP before taking hydralizine. hold if systolic BP <110 -requested 24 hour BP monitoring with plant nursery worker; check its status Assessment & Plan (09/16/2022 8:27 AM EDT): -goal BP <140/90 per JNC-8, < 130/80 per ACC/AHA guideline -BP not at goal, reportedly normal at home -comanaged with our pharmacist, demurrage agent, and plant nursery worker. -continue working on lifestyle modifications -continue Lisinopril 40 mg daily -continue Amlodipine 10mg daily. -continue Carvedilol 25 mg bid -continue Spironolactone 25 mg daily -continue hydralazine to 10 mg tid, decreased dose from 25 mg tid to 10 mg tid on 04/05/21. -pt was advised to check BP before taking hydralizine. hold if systolic BP <110 -requested 24 hour BP monitoring with plant nursery worker; check its status Proteinuria 08/17/2012 Backache 01/07/2012 Mood disorder 01/07/2012 Assessment & Plan (07/11/2024 1:09 PM EST): - major depression - S provider: [facility] Psychiatrevita sauceda mirtazapine and trazodone - treatment Hx: Lorazepam; antipsychotics Assessment & Plan (03/07/2024 7:43 AM EDT): - major depression - S provider: [facility] Psychiatrevita sauceda mirtazapine and trazodone - treatment Hx: Lorazepam; antipsychotics Assessment & Plan (09/04/2023 9:58 PM EDT): - major depression - S provider: [facility] Psychiatrevita sauceda mirtazapine and trazodone - treatment Hx: Lorazepam; antipsychotics Assessment & Plan (02/22/2023 4:48 AM EDT): - major depression - S provider: [facility] Psychiatrevita sauceda mirtazapine and trazodone - treatment Hx: Lorazepam; antipsychotics Assessment & Plan (11/17/2022 4:33 PM EDT): - major depression - [facility] provider: [facility] Psychiatrist Dr. 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 Davis here for a HDF He was recently admitted to [facility] with increased sob and treated for Congestive heart failure exacerbation. While in the hospital he was diuresed with IV Lasix. A few days after discharge he presented to the emergency room with c/o cough and sob, dx with COVID and treated conservatively as oxygen saturations was 99%. He then presented himself to [facility] for further treatment and was eventually admitted x 3 days for COVID, CHF, and PRITI. Upon discharge lisinopril and Aldactone were discontinued. Disease due to severe acute respiratory syndrome coronavirus 2 (SARS-CoV-2) 05/20/202308/15 Overview (08/18/2023): Problem added by Discern Expert Colon cancer screening 04/04/2023 04/04/202309/04 Gastroenteritis 08/26/2022 09/08/2022 Encounters Date Type Department Care Team Description 08/10/2024 Telephone [facility] [address] [place], [place] [phone] Michelle Davis MD 08/10/2024 Refill [facility] [address] [place], [place] [phone] Michelle Davis MD Primary hypertension 07/15/2024 Telephone [facility] [address] [place], [place] [phone] Cuca Vera RN 07/15/2024 Orders Only [facility] [address] [place] [phone] Michelle Davis MD PAD (peripheral artery disease) ([facility]) (Primary Dx) 07/08/2024 11:15 AM EST Office Visit [facility] JESSE Trejo40 Michelle Davis MD Ischemic heart disease (Primary Dx); Frequent PVCs; Primary hypertension; Heart failure with reduced ejection fraction ([facility]); Stage 3b chronic kidney disease ([facility]); Type 2 diabetes mellitus with stage 3a chronic kidney disease, without long-term current use of insulin ([facility]); Diabetic nephropathy with proteinuria ([facility]); Nonproliferative diabetic retinopathy ([facility]); Mood disorder ([facility]); Dyslipidemia; S/P CABG x 4; Ischemic cardiomyopathy; Excessive cerumen in ear canal, unspecified laterality 07/08/2024 Travel 07/06/2024 Telephone [facility] [place] [address] Michelle Davis MD Letter Request (I called [...] that she and the ) 06/14/2024 Refill [facility] [place] [phone] Michelle Davis MD 06/10/2024 Orders Only [facility] [place] [address] Michelle Davis MD 06/10/2024 Telephone [facility] [place] [address] Michelle Davis MD Appointment Request; Letter Request [...] Description 09/02/2024 11:15 AM EDT Office Visit [facility] [address] [place] [address] Michelle Davis MD [address] [place] [address] 10/14/2024 11:00 AM EDT Office Visit [facility] [address] [place], [place] [phone] Michelle Davis MD [address] [place] [address] Health Maintenance Due Date Last Done Comments [...] 11:06 AM EST) No Duke Betancourt, SanjayD Procedures Procedure Name Priority Date/Time Associated Diagnosis Comments XR HAND WRIST LT Routine 08/13/2024 2:40 PM EST XR KNEE 3 VIEWS RIGHT Routine 08/13/2024 2:40 PM EST POCT GLYCOSYLATED HEMOGLOBIN (HGB A1C) Routine 07/08/2024 11:39 AM EST Type 2 diabetes mellitus with stage 3a chronic kidney disease, without long-term current use of insulin ([facility]) POCT GLUCOSE Routine 07/08/2024 10:42 AM EST Type 2 diabetes mellitus with stage 3a chronic kidney disease, without long-term current use of insulin (CMS/HCC) VASC US LOWER EXTREMITY ARTERIAL DUPLEX BILATERAL [...] EST Narrative 08/13/2024 3:41 PM EST ? [facility] ?[address] ?[place] [address] ?XRay Report ? Signed ? Patient: Albaladejo,Johny ?MR#: MM ?? [id number] ? : 1950 ?Acct:[id number] ? Age/Sex: 73 / M ?ADM Date: 02/28/25 ? Loc: HO.ED ? Attending Dr: ? Ordering Physician: Zuleyma Ann ?? Date of Service: 08/13/24 ?? Procedure(s): XR hand wrist LT ?? Accession Number(s): [id number] ? cc: Zuleyma Ann; Michelle Davis MD [...] DD/ 1440 ? TD/TT: 08/13/24 1505 ? [facility]: ? Procedure Note Devon Goyal - 08/13/2024 [place] [address] XRay Report Signed Patient: Johny MansfieldMR#: [id number] : 1950Acct:[id number] Age/Sex: 73 / MADM Date: 08/13/24 Loc: HO.ED Attending Dr: Ordering Physician: Zuleyma Ann Date of Service: 08/13/24 Procedure(s): XR hand wrist LT Accession Number(s): [id number] cc: Zuleyma Ann; Michelle Davis MD EXAMINATION: [...] 08/13/24 1538 DD/ 1440 TD/TT: 08/13/24 1505 [facility]: [facility] External Provider IMG XR PROCEDURES Final Result * XR Knee 3 Views Right (08/13/2024 2:40 PM EST) Anatomical Region Laterality Modality Lower Extremities, Knee Right Radiogra phic Imaging 08/13/2024 2:40 PM EST Narrative 08/13/2024 3:38 PM EST ? [facility] ?[address] ?[place] [address] ?XRay Report ? Signed ? Patient: Albaladejo,Johny ?MR#: MM ?? [id number] ? : 1950 ?Acct:[id number] ? Age/Sex: 73 / M ?ADM Date: 08/13/24 ? Loc: HO.ED ? Attending Dr: ? Ordering Physician: Zuleyma Ann ?? Date of Service: 08/13/24 ?? Procedure(s): XR knee RT 3V ?? Accession Number(s): [id number] ? cc: Zuleyma Ann; Michelle Davis MD [...] DD/ 1440 ? TD/TT: 08/13/24 1505 ? [facility]: ? Procedure Note Jyotsna, Image - 08/13/[address] [address] XRay Report Signed Patient: Johny MansfieldMR#: [id number] : 1950Acct:[id number] Age/Sex: 73 / MADM Date: 08/13/24 Loc: .ED Attending Dr: Ordering Physician: Zuleyma Ann Date of Service: 08/13/24 Procedure(s): XR knee RT 3V Accession Number(s): [id number] cc: Zuleyma Ann; Michelle Davis MD EXAMINATION: [...] 08/13/24 1535 DD/ 1440 TD/TT: 08/13/24 1505 [facility]: [facility] External Provider IMG XR PROCEDURES Final [...] glucose manually resulted (07/08/2024 10:42 AM EST) Glucose Blood, POC 248(A) 60 - 200 mg/dL QC Media Lot # [id number] Lot# Expiration Date Blood Capillary blood specimen / Unknown 07/08/2024 10:42 AM EST Michelle Davis MD POINT OF CARE TEST ENTER/EDIT OR DERABLES Final Result * VASC US Lower Extremity Arterial Duplex Bilateral (06/10/2024 2:12 PM EST) 06/10/2024 2:12 PM EST Narrative [facility] - 07/14/2024 5:29 PM EST ? [facility] ?[address] ?[place] [address] ? Ultrasound Report ? Signed ? Patient: Albaladejo,Johny ?MR#: MM ?? [id number] ? : 1950 ?Acct:[id number] ? Age/Sex: 73 / M ?ADM Date: 12/26/24 ? Loc: HO.US ? Attending Dr: Michelle Davis MD ? Ordering Physician: Michelle Davis MD ?? Date of Service: 06/10/24 ?? Procedure(s): US arterial duplex LE BI ?? Accession Number(s): [id number] ? cc: Michelle Davis MD ? EXAMINATION: [...] performed of the ?? bilateral lower extremity [place] arterial systems. ? RIGHT FEMORAL RUNOFF VELOCITIES: [...] DD/ 1412 ? TD/TT: 06/10/24 1430 ? [facility]: BESSY ? Procedure Note Jyotsna, Image - 07/14/2024 [place] [address] Ultrasound Report Signed Patient: Johny MansfieldMR#: [id number] : 1950Acct:[id number] Age/Sex: 73 / MADM Date: 06/10/24 Loc: HO.US Attending Dr: Michelle Davis MD Ordering Physician: Michelle Davis MD Date of Service: 06/10/24 Procedure(s): US arterial duplex LE BI Accession Number(s): [id number] cc: Michelle Davis MD EXAMINATION: COLOR-FLOW DUPLEX IMAGING OF THE BILATERAL LOWER EXTREMITY ARTERIAL SYSTEM VELOCITY MEASUREMENTS THROUGHOUT THE FEMORAL ARTERIES CLINICAL INFORMATION: The patient is a 73 year-old woman with peripheral vascular disease. TECHNIQUE: Using a linear array transducer with grayscale, pulse and color Doppler modalities, ultrasound evaluation is performed of the bilateral lower extremity [place] arterial systems. RIGHT FEMORAL RUNOFF VELOCITIES: The [...] by: Frankie Real MD 07/14/2024 05:26 PM EST RP Dictated By: Frankie Real MD Signed By: <Electronically signed by Frankie Real MD in OV> 07/14/24 1726 DD/ 1412 TD/TT: 06/10/24 1430 [facility]: BESSY us Michelle Davis MD CV VASCULAR PROCEDURES Edited Re sult - Final Performing Organization Address City/[facility]/ZIP Co de Phone Number [facility] [address] [place] [address] * (ABNORMAL) Lipid Panel, Standard (11/05/2023 8:04 AM EDT) Triglycerides 103 <150 mg/dL [facility] Comment:Desirable Triglyceri de: less than 150 mg/dLBorderline High Triglyceride 150-199 mg/dLHigh Triglyceride: 200-499 mg/dLVery High Triglyceride: greater than or equal to 5OO mg/dL Cholesterol 109 <200 mg/dL [facility] Comment:Desirable Cholestero l: less than 200 mg/dLBorderline High Cholesterol: 200-239 mg/dLHigh Cholesterol: greater than 239 mg/dL LDL Cholesterol Calculated 52 <100 mg/dL [facility] Comment:Desirable LDL: less than 100 mg/dLNear Optimal/Above Optimal LDL: 110- 129 mg/dLBorderline High LDL: 130-159 mg/dLHigh LDL: 160-189 mg/dLVery High LDL: greater than or equal to 190 mg/dL HDL Cholesterol 37(L) >40 mg/dL [facility] Comment:Desirable HDL: great er than 40 mg/dL Note: This HDL assay may give artificially low results in patients with liver disease. 11/05/2023 8:04 AM EDT 11/05/2023 8:04 AM EDT us Generic External Data Provider LAB BLOOD ORDERAB LES Final Result Performing Organization Address City/[facility]/ZIP Co de Phone Number [facility] [address] [place] [address] [phone] * Hm Colonoscopy (04/28/2023) Colonoscopy Normal Normal us Historical Provider HEALTH MAINTENANCE Edited Result - Final * Diabetes Eye Exam (01/31/2023) Eye Exam Normal Normal, BIRADS 0 , BIRADS 1 , BIRADS 2, BIRADS 3 , BIRADS 4+ us Historical Provider HEALTH MAINTENANCE Final Result from Last 3 Months or Most Recently Relevant to Health Maintenance Insurance [facility] - SCO DENTAL - [facility] Care Teams Coal Sample Tester Relationship Specialty Start Date End Date Michelle Davis MD [address] [place] [address] PCP - General Family Medicine 04/15/12 Duke Betancourt, SanjayD [address] [place] [address] Pharmacist Internal Medicine 08/26/22
--- OUTSIDE RECORDS SUMMARY | 2024-08-24 07:39 | XMS_ITS | Encounter Summary ---
Author Organization [employer] Address [address] [place] [address] 7t [place] [address] Care Team Providers Care Farm Operator Name Role Phone Michelle Zhang MD Primary Care Provider [phone] Duke Betancourt PharmD Unavailable [phone] Reason for Referral * Medications - Closed Specialty Diagnoses / Procedures Referred By Contac t Referred To Contact Michelle Zhang MD [address] [place] [address] Phone: tel: fax: Referral ID Status Reason Start Date Expiration Date Visits Re quested Visits Authorized [id number] Closed 1 1 Encounter Details Date Type Department Care Team (Late st Contact Info) Description 10/03/2023 Orders Only [facility] MEDICINE [address] [place], [place] [phone] Michelle Zhang MD [address] [place], [place] [phone] Social History Tobacco Use Types Packs/Day Years [...] Description 09/02/2024 11:15 AM EDT Office Visit [facility] [address] [place] [phone] Michelle Zhang MD [address] [place] [address] 10/14/2024 11:00 AM EDT Office Visit [facility] [address] [place] [address] Michelle Zhang MD [address] [place] [address] documented as of this encounter Goals Goal Patient Goal Type Associated Problems Recent Progress Patient-Stated? Author Blood Pressure < 140/90 Blood Pressure 154/90( 025 11:06 AM EST) Duke Muir, PharmD documented as of this encounter Visit Diagnoses Not on filedocumented in this encounter Additional Health Concerns Assessment Noted Time PHQ-9 Depression Total Score: 0 09/10/19 10:48 AM EDT documented as of this encounter Care Teams Farm Operator Relationship Specialty Start Date End Date Michelle Zhang MD [address] [place] [address] PCP - General Family Medicine 04/15/12 Duke Betancourt, Wolf [address] [place] [address] Pharmacist Internal Medicine 08/26/22 documented as of this encounter
--- OUTSIDE RECORDS SUMMARY | 2024-08-24 07:39 | XMS_ITS | Encounter Summary ---
Author Organization [facility], Address [address] [place] [address] Phone Care Team Providers Care Client Service Coordinator Name Role Phone Michelle Zhang MD Primary Care Provider [phone] Encounter Details Date Type Department Care Team (Late st Contact Info) Description 02/03/2023 Documentation Only [facility] [address] [place] [address] Abel Ji DO [address] [place] [address] Social History Tobacco Use Types [...] Visit [facility] [address] [place] [address] Abel Ji DO [address] [place] [address] documented as of this encounter Visit Diagnoses Not on filedocumented in this encounter Care Teams Client Service Coordinator Relationship Specialty Start Date End Date Michelle Zhang MD PCP - General 04/20/19 documented as of this encounter
--- OUTSIDE RECORDS SUMMARY | 2024-08-24 07:39 | XMS_ITS | Clinical Summary ---
Author Organization [facility], Address [address] [place] [address] [place] [address] Phone Care Team Providers Care Metal Grinder Name Role Phone Michelle Zhang MD Primary Care Provider [phone] Allergies No known active allergies Medications aspirin [...] Visit [facility], [address] [address] Abel Ji DO [address] [place] [id number] Health Maintenance Due Date Last Done Comments Colorectal Cancer Screening: Annual FOBT 1998 Colorectal Cancer Screening: Colonoscopy 1998 Colorectal Cancer Screening: Sigmoidoscopy 1998 Diabetes: Ophthalmology Exam 07/14/2019 Diabetes: Pedal Pulse Checked 07/14/2019 Diabetes: Sensory Foot Exam 07/14/2019 Diabetes: Visual Foot Exam 07/14/2019 Diabetes: Hemoglobin A1C 10/06/2024 025, 11/18/2023, 06/05/2023, Additional history exists Hepatitis B Vaccine Aged Out 06/15/2015, 05/03/2014, 09/27/2013 No longer eligible based on patient's age to complete this topic Pneumococcal Vaccine: 65+ Years Completed 03/03/2018, 12/08/2014, 08/17/2012 Influenza Vaccine Completed 03/01/2024, , 03/08/2020, Additional history exists Procedures Procedure Name Priority Date/Time Associated Diagnosis Comments HEMOGLOBIN A1C Routine 08/15/2022 2:13 PM EST Stage 3a chronic kidney disease (HCC) Chronic systolic congestive heart failure (HCC) Essential hypertension from Last 3 Months or Most Recently Relevant to Health Maintenance Results * (ABNORMAL) Hemoglobin A1c (08/15/2022 2:13 PM EST) Hemoglobin A1C 7.1(H) (4.0-5.6) % [facility] Comment: MONITORING: In known diabetic patients, hemoglobin A1c targets should be discussed with health care provider. DIAGNOSTIC USE: ??The [place] [employer] Diabetes Association (ADA) and the World Health [...] Supplement 1 Testing performed or reported by [facility], a Service of [facility], [address] [place] [address] Guerita Jorge MD, Compensation Specialist [facility]# [id number] Blood (Blood, Venous) 08/15/2022 2:13 PM EST 08/15/2022 2:17 PM EST us Abel Ji DO LAB BLOOD ORDERABLES Final Resu lt [facility] from Last 3 Months or Most Recently Relevant to Health Maintenance Insurance [facility] DUAL SNP ([id number]) [place] [id number] Care Teams Metal Grinder Relationship Specialty Start Date End Date Michelle Zhang MD PCP - General 04/20/19
--- OUTSIDE RECORDS SUMMARY | 2024-08-24 07:39 | XMS_ITS | Encounter Summary ---
Author Organization [employer] Address [address] [facility] 7t [place] [address] Care Team Providers Care Metal Casting Trades Worker Name Role Phone Michelle Zhang MD Primary Care Provider [phone] Duke Betancourt PharmD Unavailable [phone] Reason for Visit * Reason Onset Date Comments FYI 06/03/2023 Encounter Details Date Type Department Care Team ([facility] st Contact Info) Description 06/03/2023 Telephone [facility] MEDICINE 230 [place], [place] [phone] Michelle Zhang MD [address] [place], [place] [phone] FYI Social History Tobacco Use Types Packs/Day [...] - 06/03/2023 10:57 AM EST Tc from [facility] with [facility] stating that their will be discharging pt due to not being ableto reach pt. documented in this encounter Plan of Treatment Upcoming Encounters Date Type Department Care Team (Late st Contact Info) Description 09/02/2024 11:15 AM EDT Office Visit [facility] MEDICINE [address] [place] [phone] Michelle Zhang MD [address] [place] [address] 10/14/2024 11:00 AM EDT Office Visit [facility] MEDICINE [address] [place] [address] Michelle Zhang MD [address] [place] [address] documented as of this encounter Goals Goal [...] documented as of this encounter Care Teams Metal Casting Trades Worker Relationship Specialty Start Date End Date Michelle Zhang MD [address] [place], [place] [phone] PCP - General Family Medicine 04/15/12 Duke Betancourt, SanjayD [address] [place] [address] Pharmacist Internal Medicine 08/26/22 documented as of this encounter
--- OUTSIDE RECORDS SUMMARY | 2024-08-24 07:39 | XMS_ITS | Encounter Summary ---
Author Organization [facility], Address [address] [place] [address] Phone Care Team Providers Care Physical Metallurgist Name Role Phone Michelle Zhang MD Primary Care Provider Encounter Details Date Type Department Care Team (Late st Contact Info) Description 02/03/2023 Documentation Only [facility] [address] [place] [address] Abel Ji DO [address] [place] [address] Social History Tobacco Use Types [...] [facility] [address] [place] [address] Abel Ji DO [address] [place] [address] documented as of this encounter Visit Diagnoses Not on filedocumented in this encounter Care Teams Physical Metallurgist Relationship Specialty Start Date End Date Michelle Zhang MD PCP - General 04/20/19 documented as of this encounter
--- OUTSIDE RECORDS SUMMARY | 2024-08-24 07:40 | XMS_ITS | Encounter Summary ---
Author Organization [employer] Address [address] [facility] 7t [place] [address] Care Team Providers Care Head Of Quality Name Role Phone Michelle Zhang MD Primary Care Provider [phone] Duke Betancourt PharmD Unavailable [phone] Reason for Visit * Reason Comments Med Refill Encounter Details Date Type Department Care Team ([facility] st Contact Info) Description 08/10/2024 Refill [facility] MED[facility]INE [address] [place], [place] [phone] Michelle Zhang MD 230 [place], [place] [phone] Primary hypertension Social History Tobacco Use Types [...] 11:15 AM EDT Office Visit [facility] MEDICINE [address] [place] [address] Michelle Zhang MD [address] [place] [address] 10/14/2024 11:00 AM EDT Office Visit [facility] MEDICINE [address] [place] [address] Michelle Zhang MD [address] [place] [address] documented as of this encounter Goals Goal [...] documented as of this encounter Care Teams Head Of Quality Relationship Specialty Start Date End Date Michelle Zhang MD [address] [place] [address] PCP - General Family Medicine 04/15/12 Duke Betancourt PharmD [address] [place] [address] Pharmacist Internal Medicine 08/26/22 documented as of this encounter
--- OUTSIDE RECORDS SUMMARY | 2024-08-24 07:40 | XMS_ITS | Encounter Summary ---
Author Organization [employer] Address [address] 7t [place] [address] Care Team Providers Care Fast Food Delivery Driver Name Role Phone Michelle Zhang MD Primary Care Provider [phone] Duke Betancourt PharmD Unavailable [phone] Encounter Details Date Type Department Care Team ([facility] st Contact Info) Description 08/10/2024 Telephone [facility] MEDICINE 230 [place], [place] [phone] Michelle Zhang MD 230 [place], [place] [phone] Social History Tobacco Use Types Packs/Day Years [...] Description 09/02/2024 11:15 AM EDT Office Visit [facility] MEDICINE [address] [place] [address] Michelle Zhang MD [address] [place] [address] 10/14/2024 11:00 AM EDT Office Visit [facility] MEDICINE [address] [place] [address] Michelle Zhang MD [address] [place] [address] documented as of this encounter Goals Goal [...] documented as of this encounter Care Teams Fast Food Delivery Driver Relationship Specialty Start Date End Date Michelle Zhang MD [address] [place] [address] PCP - General Family Medicine 04/15/12 Duke Betancourt, SanjayD [address] [place] [address] Pharmacist Internal Medicine 08/26/22 documented as of this encounter
--- OUTSIDE RECORDS SUMMARY | 2024-08-24 07:40 | XMS_ITS | Encounter Summary ---
Author Organization [employer] Address [address] [place] [address] 7 [place] [address] Care Team Providers Care Dock Guard Name Role Phone Michelle Zhang MD Primary Care Provider [phone] Duke Betancourt PharmD Unavailable [phone] Reason for Visit * Reason Comments Med Refill Encounter Details Date Type Department Care Team (Late st Contact Info) Description 02/16/2023 Refill [facility] MEDICINE [address] [place] [address] [phone] Michelle Zhang MD 230 [place], [place] [phone] Social History Tobacco Use Types Packs/Day Years [...] 09/02/2024 11:15 AM EDT Office Visit [facility] MEDICINE [address] [place] [address] [phone] Michelle Zhang MD 230 [place] [address] 10/14/2024 11:00 AM EDT Office Visit [facility] MEDICINE [address] [place] [address] Michelle Zhang MD [address] [place] [address] documented as of this encounter Goals Goal [...] documented as of this encounter Care Teams Dock Guard Relationship Specialty Start Date End Date Michelle Zhang MD [address] [place] [address] PCP - General Family Medicine 04/15/12 Duke Betancourt, PharmD [address] [place] [address] [phone] Pharmacist Internal Medicine 08/26/22 documented as of this encounter
--- OUTSIDE RECORDS SUMMARY | 2024-08-24 07:40 | XMS_ITS | Encounter Summary ---
Author Organization [employer] Address [address] [place] [address] 7t [place] [address] Care Team Providers Care New Car Salesperson Name Role Phone Michelle Zhang MD Primary Care Provider Duke Betancourt PharmD Unavailable [phone] Reason for Visit * Reason Onset Date Comments Appointment Request 09/03/2022 Encounter Details Date Type Department Care Team ([facility] st Contact Info) Description 09/03/2022 Telephone [facility] MEDICINE 230 [place], [place] [phone] Michelle Zhang MD 230 [place], [place] [phone] Appointment Request Social History Tobacco Use Types [...] for 09/09/2022 if possible. Please contact pt [phone] documented in this encounter Plan of Treatment Upcoming Encounters Date Type Department Care Team (Late st Contact Info) Description 09/02/2024 11:15 AM EDT Office Visit [facility] 230 [place] [address] Michelle Zhang MD [address] [place], [place] [phone] 10/14/2024 11:00 AM EDT Office Visit [address] [phone] Michelle Zhang MD [address] [place], [place] [phone] documented as of this encounter Goals Goal Patient Goal Type Associated Problems Recent Progress Patient-Stated? Author Blood Pressure < 140/90 Blood Pressure 154/90( 025 11:06 AM EST) No Duke Betancourt, PharmD documented as of this encounter Visit Diagnoses Not on filedocumented in this encounter Care Teams New Car Salesperson Relationship Specialty Start Date End Date Michelle Zhang MD [address] [place] [address] [phone] PCP - General Family Medicine 04/15/12 Duke Betancourt, PharmD [address] [place] [address] Pharmacist Internal Medicine 08/26/22 documented as of this encounter
--- OUTSIDE RECORDS SUMMARY | 2024-08-24 07:40 | XMS_ITS | Encounter Summary ---
Author Organization [employer] Address [address] [place] [address] 7 [place] [address] Care Team Providers Care Seasonal Tax Preparer Name Role Phone Michelle Zhang MD Primary Care Provider Duke Betancourt PharmD Unavailable [phone] Encounter Details Date Type Department Care Team (Late Contact Info) Description 11/20/2022 [facility] [employer] 230 [place], [place] [phone] Michelle Zhang MD 230 [place], [place] [phone] Social History Tobacco Use Types Packs/Day Years [...] Department Care Team (Late Contact Info) Description 09/02/2024 11:15 AM EDT Office Visit [facility] MEDICINE 230 [place], [place] [phone] Michelle Zhang MD 230 [facility] [place], [place] [phone] 10/14/2024 11:00 AM EDT Office Visit [facility] [place], [place] [phone] Michelle Zhang MD 230 [place], [place] [phone] documented as of this encounter Goals Goal [...] documented as of this encounter Care Teams Seasonal Tax Preparer Relationship Specialty Start Date End Date Michelle Zhang MD [address] [place] [address] PCP - General Family Medicine 04/15/12 Duke Betancourt, PharmD [address] [place] [address] Pharmacist Internal Medicine 08/26/22 documented as of this encounter
--- OUTSIDE RECORDS SUMMARY | 2024-08-24 07:40 | XMS_ITS | Encounter Summary ---
Author Organization [employer] Address [address] [place] [address] 7t [place] [address] Care Team Providers Care Joint Finisher Name Role Phone Michelle Zhang MD Primary Care Provider [phone] Duke Betancourt PharmD Unavailable [phone] Reason for Referral * Consultation (Routine) - Closed Specialty Diagnoses / Procedures Referred By Contac t Referred To Contact Vascular Surgery Diagnoses PAD (peripheral artery disease) ([facility]) Michelle Zhang MD [address] [place] [address] Phone: tel: fax: [facility] Referral ID Status Reason Start Date Expiration Date V isits Requested Visits Authorized [id number] Closed Specialty Services Required 07/15/2024 07/15/2025 1 1 Encounter Details Date Type Department Care Team (Late st Contact Info) Description 07/15/2024 Orders Only [facility] MEDICINE [address] [place], [place] [phone] Michelle Zhang MD 230 [place], [place] [phone] PAD (peripheral artery disease) ([facility]/HCC) (Primary Dx) Social History Tobacco Use Types [...] Description 09/02/2024 11:15 AM EDT Office Visit [facility] MEDICINE [address] [place] [address] Michelle Zhang MD [address] [place] [address] 10/14/2024 11:00 AM EDT Office Visit [facility] MEDICINE [address] [place] [address] Michelle Zhang MD [address] [place] [address] Scheduled Referrals Name Type Priority Associated Diagnoses Orde r Schedule Referral to Vascular Surgery Outpatient Referral Routine PAD (peripheral artery disease) ([facility]/HCC) Expected: 07/15/2024 (Approximate), Expires: 07/15/2025 documented as [...] EST Narrative 08/13/2024 3:41 PM EST ? [facility] ?[address] ?[place] [address] ?XRay Report ? Signed ? Patient: Albrobertdejo,Johny ?MR#: [id number] ?? [id number] ? : 1950 ?Acct:[id number] ? Age/Sex: 73 / M ?ADM Date: 08/13/24 ? Loc: HO.ED ? Attending Dr: ? Ordering Physician: Zuleyma Ann ?? Date of Service: 08/13/24 ?? Procedure(s): XR hand wrist LT ?? Accession Number(s): [id number] ? cc: Zuleyma Ann; Michelle Zhang MD [...] DD/ 1440 ? TD/TT: 08/13/24 1505 ? Lime Kiln Worker Helper: ? Procedure Note Jyotsna, Image - 08/13/2024 [place] [address] XRay Report Signed Patient: Johny MansfieldMR#: [id number] : 1950Acct:[id number] Age/Sex: 73 / MADM Date: 08/13/24 Loc: HO.ED Attending Dr: Ordering Physician: Zuleyma Ann Date of Service: 08/13/24 Procedure(s): XR hand wrist LT Accession Number(s): [id number] cc: Zuleyma Ann; Michelle Zhang MD EXAMINATION: [...] 08/13/24 1538 DD/ 1440 TD/TT: 08/13/24 1505 Lime Kiln Worker Helper: [facility] External Provider IMG XR PROCEDURES Final Result * XR Knee 3 Views Right (08/13/2024 2:40 PM EST) Anatomical Region Laterality Modality Lower Extremities, Knee Right Radiogra phic Imaging 08/13/2024 2:40 PM EST Narrative 08/13/2024 3:38 PM EST ? [facility] ?[address] ?[place] [address] ?XRay Report ? Signed ? Patient: Albaladejo,Johny ?MR#: [id number] ?? [id number] ? : 1950 ?Acct:[id number] ? Age/Sex: 73 / M ?ADM Date: 08/13/24 ? Loc: HO.ED ? Attending Dr: ? Ordering Physician: Zuleyma Ann ?? Date of Service: 08/13/24 ?? Procedure(s): XR knee RT 3V ?? Accession Number(s): [id number] ? cc: Zuleyma Ann; Michelle Zhang MD [...] DD/ 1440 ? TD/TT: 08/13/24 1505 ? Lime Kiln Worker Helper: ? Procedure Note Donotyaelter, Image - 08/13/2024 [facility] [address] [place] [address] XRay Report Signed Patient: Johny MansfieldMR#: [id number] : 1950Acct:[id number] Age/Sex: 73 / MADM Date: 08/13/24 Loc: HO.ED Attending Dr: Ordering Physician: Zuleyma Ann Date of Service: 08/13/24 Procedure(s): XR knee RT 3V Accession Number(s): [id number] cc: Zuleyma Ann; Michelle Zhang MD EXAMINATION: [...] 08/13/24 1535 DD/ 1440 TD/TT: 08/13/24 1505 Lime Kiln Worker Helper: [facility] External Provider IMG XR PROCEDURES Final Result documented in this encounter Visit Diagnoses Diagnosis PAD (peripheral artery disease) (CMS/HCC)- Primary Unspecified peripheral vascular disease documented in this encounter Additional Health Concerns Assessment Noted Time PHQ-9 Depression Total Score: 0 03/01/20 24 10:05 AM EDT documented as of this encounter Care Teams Joint Finisher Relationship Specialty Start Date End Date Michelle Zhang MD [address] [place] [address] PCP - General Family Medicine 04/15/12 Duke Betancourt, PharmD [address] [place] [address] [place] [address] Pharmacist Internal Medicine 08/26/22 documented as of this encounter
--- OUTSIDE RECORDS SUMMARY | 2024-08-24 07:40 | XMS_ITS | Encounter Summary ---
Author Organization [employer] Address [address] [place] [address] 7t [place] [address] Care Team Providers Care Brass Chaser Name Role Phone Michelle Zhang MD Primary Care Provider [phone] Duke Betancourt PharmD Unavailable [phone] Reason for Visit * Reason Onset Date Comments Referral 05/17/2022 Encounter Details Date Type Department Care Team ([facility] st Contact Info) Description 05/17/2022 Telephone [facility] MEDICINE 230 [place], [place] [phone] Michelle Zhang MD 230 [place], [place] [phone] Referral Social History Tobacco Use Types Packs/Day [...] it after since he will be in [place] for the holidays. Please contact pt at [phone] * Telephone Encounter - Raquel Jennings RN - 05/21/2022 12:13 PM EST Pt's EC came in to ask ab out drops, let FD know about messages in chart see today's encounter. * Telephone Encounter - Raquel Jennings RN - 05/21/2022 11:18 AM EST Telephone call to pt in regards to asking if his explosives worker can rx the drops. Call not answered, left vm to call back nurses when able. * Telephone Encounter - Wendy Motta RN - 05/20/2022 12:32 PM EST Pt's spouse walked in requesting eye drops for dry eye. Queued eye drops that might be covered by insurance per [facility] (many not covered). Please review and advise. * Telephone Encounter - Arti Pruitt RN - 05/17/2022 10:43 AM EST LVM to return call to [facility] triage line. * Telephone Encounter - Mel Irizarry - 05/17/2022 8:54 AM EST Symptom: Earache Outcome: Schedule a same-day appointment or talk to a nurse or provider today Reason: No high acuity concerns reported by caller The caller accepted this outcome Tc from Jordana (friend) stating pt has left eye dryness and ear pain. *Jordana Murrieta is on hippa Please contact in [place] at [phone] documented in this encounter Plan of Treatment Upcoming Encounters Date Type Department Care Team (Late st Contact Info) Description 09/02/2024 11:15 AM EDT Office Visit [facility] MEDICINE [address] [place] [address] Michelle Zhang MD [address] [place] [address] 10/14/2024 11:00 AM EDT Office Visit [address] [address] Michelle Zhang MD [address] [place] [address] documented as of this encounter Visit Diagnoses Not on filedocumented in this encounter Care Teams Brass Chaser Relationship Specialty Start Date End Date Michelle Zhang MD [address] [place] [address] [phone] PCP - General Family Medicine 04/15/12 Duke Betancourt, PharmD [address] [place] [address] [phone] Pharmacist Internal Medicine 08/26/22 documented as of this encounter
--- OUTSIDE RECORDS SUMMARY | 2024-08-24 07:40 | XMS_ITS ---
Author Organization [facility] Address [address] [place] [address] Care Team Providers Care Tire Recapper Name Role Phone Leatha SUBRAMANIAN, Michelle Primary Care Provider Fausto Knight [phone] REASON FOR VISIT screening Problems Problem Type SNOMED Code ICD Code Onset Dates Problem Status W/U Status Risk Notes Problem Diverticular disease of colon (405752387) Diverticulosis of large intestine without perforation or abscess without bleeding (K57.30) Active confirmed Encounters Encounter Location Date Provider Diagnosis [facility] [address] [place] [id number] 04/28/2023 Fausto Little Encounter for scre ening colonoscopy Z12.11 ; Diverticulosis of large intestine without perforation or abscess without bleeding K57.30 and Other hemorrhoids K64.8 Assessments Encounter Date Diagnosis (ICD Code) Assessment Notes Treatment Notes Treatment Clinical Notes Section Notes 04/28/2023 Encounter for screening colonoscopy (ICD-10 - Z12.11) 04/28/2023 Diverticulosis of large intestine without perforation or abscess without bleeding (ICD-10 - K57.30) 04/28/2023 Other hemorrhoids (ICD-10 - K64.8) Plan Of Treatment No Information Progress Notes * LIANA RAMOSDOB: (73 yo M)Acc No.[id number]:04/28/2023 COLON WITH MAC Patient:?LORELEI RAMOS Provider:?Fausto Little MD :1950???Age:72 Y???Sex:Male Angus e:04/28/2023 Address:[address] [place], [place] [id number] Pcp:Michelle Zhang MD Subjective: * Chief Complaints: * ???1. Screening. * Medical History:? Objective: * Vitals:? Assessment: * Assessment: 1.?Encounter for screening c olonoscopy - Z12.11 (Primary)???2.?Diverticulosis of large intestine without perforation or abscess without bleeding - K57.30???3.?Other hemorrhoids - K64.8??? Plan: * Treatment: * Procedure Codes:?58376 DIAGN OSTIC COLONOSCOPY * * The named appointment provid er may or may not be the originator of this progress note, and it is not deemed complete until electronically signed by the appointment provider. Sign off status: Pending * Provider:?Fausto Little MD Date:? 023 Generated for Valarie zaman/Solitario/eTgwensmitting on:?08/24/2024 07:40 AM EDT
--- OUTSIDE RECORDS SUMMARY | 2024-08-24 07:40 | XMS_ITS ---
Author Organization [facility] Address [address] [place] [address] Care Team Providers Care Industrial Relations Analyst Name Role Phone Leatha SUBRAMANIAN, Michelle Primary Care Provider Fausto Knight [phone] REASON FOR VISIT No Trulicity after 04/20/2023 for the 04/28 procedure. Encounters Encounter Location Date Provider Diagnosis [facility] [address] [facility] ([place], [place]) [address] [place] [phone] 04/17/2023 Fausto Little Plan Of Treatment No Information Progress Notes * LIANA RAMOSDOB: (72 yo M)Acc No.[id number]:04/17/2023 Patient:?LORELEI RAMOS :1950???Age:72 Y???Sex:Male Address:[address] [place], [place] [address] [address] * true * Date:? Generated for Valarie zaman/Solitario/eTransmitting on:?08/24/2024 07:39 AM EDT
--- OUTSIDE RECORDS SUMMARY | 2024-08-24 07:40 | XMS_ITS | Encounter Summary ---
Author Organization [employer] Address [address] [facility] 7t [place] [address] Care Team Providers Care Curriculum Developer Name Role Phone Michelle Zhang MD Primary Care Provider [phone] Duke Betancourt PharmD Unavailable [phone] Reason for Visit * Reason Onset Date Comments Reschedule 05/20/2023 Encounter Details Date Type Department Care Team (Late st Contact Info) Description 05/20/2023 Telephone [facility] [address] [place], [place] [phone] Michelle Zhang MD [address] [place], [place] [phone] Reschedule Social History Tobacco Use Types Packs/Day [...] appt, pt is getting discharge today from [facility]. documented in this encounter Plan of Treatment Upcoming Encounters Date Type Department Care Team (Late st Contact Info) Description 09/02/2024 11:15 AM EDT Office Visit [address] [address] Michelle Zhang MD [address] [place] [address] 10/14/2024 11:00 AM EDT Office Visit [address] [address] Michelle Zhang MD [address] [place] [address] documented as of this encounter Goals Goal [...] documented as of this encounter Care Teams Curriculum Developer Relationship Specialty Start Date End Date Michelle Zhang MD [address] [place] [address] PCP - General Family Medicine 04/15/12 Duke Betancourt, SanjayD [address] [place] [address] Pharmacist Internal Medicine 08/26/22 documented as of this encounter
--- OUTSIDE RECORDS SUMMARY | 2024-08-24 07:40 | XMS_ITS | Encounter Summary ---
Author Organization [employer] Address [address] [facility] 7t [place] [address] Care Team Providers Care Tank Truck Loader Name Role Phone Michelle Zhang MD Primary Care Provider [phone] Duke Betancourt PharmD Unavailable [phone] Reason for Visit * Reason Onset Date Comments Durable Medical Equipment 03/28/2023 Encounter Details Date Type Department Care Team (Late st Contact Info) Description 03/28/2023 Telephone [facility] [address] [place], [place] [phone] Michelle Zhang MD [address] [place], [place] [phone] Durable Medical Equipment Social History Tobacco Use [...] Description 09/02/2024 11:15 AM EDT Office Visit [facility] [address] [place] [phone] Michelle Zhang MD [address] [place] [address] 10/14/2024 11:00 AM EDT Office Visit [facility] [address] [place] [address] Michelle Zhang MD [address] [place] [address] documented as of this encounter Goals Goal [...] documented as of this encounter Care Teams Tank Truck Loader Relationship Specialty Start Date End Date Michelle Zhang MD [address] [place] [address] PCP - General Family Medicine 04/15/12 Duke Betancourt, PharmD [address] [place] [address] Pharmacist Internal Medicine 08/26/22 documented as of this encounter
--- OUTSIDE RECORDS SUMMARY | 2024-08-24 07:40 | XMS_ITS | Encounter Summary ---
Author Organization [employer] Address [address] [place] [address] 7t [place] [address] Care Team Providers Care Gasket Notcher Name Role Phone Michelle Zhang MD Primary Care Provider [phone] Duke Betancourt PharmD Unavailable [phone] Reason for Visit * Reason Onset Date Comments glucose meter 11/18/2022 Encounter Details Date Type Department Care Team (Late st Contact Info) Description 11/18/[address] [facility] [address] [place], [place] [phone] Michelle Zhang MD [address] [place], [place] [phone] glucose meter Social History Tobacco Use Types [...] Description 09/02/2024 11:15 AM EDT Office Visit [facility] [address] [place], [place] [phone] Michelle Zhang MD [address] [place] [address] 10/14/2024 11:00 AM EDT Office Visit [facility] [address] [place], [place] [phone] Michelle Zhang MD [address] [place], [place] [phone] documented as of this encounter Goals Goal Patient Goal Type Associated Problems Recent Progress Patient-Stated? Author Blood Pressure < 140/90 Blood Pressure 154/90( 025 11:06 AM EST) No Duke Betancourt, Wolf documented as of this encounter Visit Diagnoses Diagnosis Type 2 diabetes mellitus with microalbuminuria, without long-term current use of insulin ([facility]) documented in this encounter Additional Health Concerns Assessment Noted Time PHQ-9 Depression Total Score: 0 09/10/19 23 10:48 AM EDT documented as of this encounter Care Teams Gasket Notcher Relationship Specialty Start Date End Date Michelle Zhang MD [address] [place] [address] PCP - General Family Medicine 04/15/12 Duke Betancourt, PharmD [address] [place] [address] [phone] Pharmacist Internal Medicine 08/26/22 documented as of this encounter
--- NOTE | 2024-08-24 07:41 | CA_ITS ---
Acquisition Time: 2024-08-24 08:01:30 Total Exercise Time: 00:05:03 Test Indications: CARDIOMYOPATHY Medications: SEE H&P Protocol: DEBORA Max HR: 240 BPM 164% of Pred: 146 BPM Max BP: 162/98 mmHG Max Work Load: 4.6 METS Exercise Stress Test with exercise 5 mins 3 secs of Debora Protocol, held at Stage 1 due to Leg discomfort, achieving 96% MPHR, without any anginal symptoms, with frequent isolated PVCs, with normotensive response to exercise. With borderline EKG chnages during recovery, difficult to assess EKGs during exercise due to artifacts; nonspecific ST-T waves at baseline. Nuclear images pending. Test reviewed with Dr. Arellano. Referred By: João Interiano Electronically Signed By: Heri Martínez
== END ==
LOC: HO.CARD 07:37
PROVIDERS: PCP Family Medicine; Visit Provider Internal Medicine Cardiovascular Disease
DX: I25.5 Ischemic cardiomyopathy (principal)
CPT/HCPCS: 78452; 93017; A9500

== ENCOUNTER → 2024-08-24 07:41 | Outpatient (BNV) | payer OTHER, SELFPAY | PROVIDERS: PCP Family Medicine | DX: I49.3 Ventricular premature depolarization (principal) | CPT/HCPCS: 78452; 93016; 93018 ==

== ENCOUNTER 2024-11-16 09:33 | Outpatient (AMB) | payer OTHER, SELFPAY ==
--- NOTE | 2024-11-16 10:07 | A.OFFVIS_ITS ---
Vital Signs 11/16/24 10:08 Height 5 ft 9 in Weight 152 lb 1.903 oz BMI 22.5 BP 110/70 Blood Pressure Location Lt brachial Position Sitting Pulse 70 Intake Visit Reasons: overdue follow up Intake Note: Follow-up feeling good Vest Presser Required: Yes Vest Presser Services: Vest Presser Present Vest Presser Name: yelena Dent Instructional Technology Director: Instructional Technology Director Present Accompanied by: Spouse Allergies No Known Allergies Allergy (Verified 08/13/24 14:44) Medication List - Last Reconciled 11/16/24 by João Interiano MD alirocumab (Praluent Pen) 75 mg subcut Q2W amlodipine 5 mg PO DAILY@1200 aspirin 81 mg PO DAILY atorvastatin 80 mg PO BEDTIME carvedilol 25 mg PO BID docusate sodium 100 mg PO BID PRN dulaglutide (Trulicity) 0.75 mg subcut TH@0900 empagliflozin (Jardiance) 25 mg PO DAILY ezetimibe 10 mg PO BEDTIME mirtazapine 7.5 mg PO BEDTIME pantoprazole 40 mg PO DAILY@0630 pen needle, diabetic Use four times a day or as directed. sacubitril-valsartan 24-26 mg (Entresto) 1 tab PO BID 90 days spironolactone 25 mg PO BEDTIME HPI Comments Details: Johny comes for follow-up. He is here with and accompanied by his . History was obtained with help of certified court/medical interpreter over the telephone. Patient denies any cardiac symptoms. He said he is very active and functional and walks without any exertional chest pain. No shortness of breath orthopnea, PND, leg edema. Denies any lightheadedness, syncope. No prolonged palpitation irregular heartbeat. Takes all his medications. His LDL is well optimized. [facility] Medical History Hospital discharge follow-up Heart failure with reduced ejection fraction Renal failure GERD (gastroesophageal reflux disease) Chronic renal insufficiency Hyperlipidemia Diabetes mellitus Ischemic cardiomyopathy HTN (hypertension) CAD (coronary artery disease) Surgical History S/P CABG x 4 H/O colonoscopy Hx of cholecystectomy Social History Household Members: Spouse Housing: Apartment Do you presently have visiting nurse or other home services: Yes ([facility] 1/month.) Alcohol intake: former Comment: at bedside Patient Tobacco Use Status: Never used Tobacco Second Hand Smoke Exposure: No Advance Directives Date on File: 05/09/23 service: No Review of Systems Const Denies chills, Denies fatigue, Denies fever(s), Denies frequent falls, Denies weakness, Denies weight gain and Denies weight loss ENT Denies dizziness Card Denies chest pain, Denies leg edema, Denies lightheadedness, Denies palpitations, Denies dyspnea, Denies dyspnea on exertion, Denies orthopnea and Denies other (loss of consciousness) Resp Denies cough, Denies dyspnea and Denies dyspnea on exertion GI Denies hematochezia and Denies change in stool character Musc Denies abnormal gait, Denies muscle weakness, Denies numbness, Denies radiating pain into limb and Denies tingling Neuro Denies abnormal gait, Denies dizziness, Denies frequent falls, Denies numbness, Denies tingling and Denies weakness Endo Denies fatigue and Denies palpitations Physical Exam Vital Signs: Last Vital Signs Pulse 70 11/16/24 10:08 BP 110/70 11/16/24 10:08 BMI result Body Mass Index 22.5 Const General: cooperative, comfortable, no acute distress, alert, awake and well groomed Nutritional Appearance: average body habitus and thin Orientation/consciousness: patient oriented x3 Limitations: no limitations Neck Neck: Yes trachea midline, Yes supple and Yes no JVD Carotids: no bruits Resp Effort & Inspection: normal respiratory effort Auscultation: clear to auscultation bilaterally Cardio Jugular venous distension: no JVD Palpation: normal PMI Rate: regular rate Rhythm: abnormal rhythm with ectopic beats Heart sounds: S1 normal heart sound present, S2 normal heart sound present, no click, no gallops, no murmurs and no rubs GI Auscultation: normal bowel sounds Skin General skin exam: no rashes or lesions noted Neuro General: patient oriented x3 and no focal motor deficits Extrem General: Yes no clubbing, cyanosis or edema Psych Appearance: grossly normal Assessment & Plan Assessment & Plan (1) Ischemic cardiomyopathy: Comment: Severe LV systolic dysfunction prior to coronary artery bypass grafting. Post coronary artery bypass grafting normalized LV systolic function along with neurohormonal modulation Code(s): I25.5 - Ischemic cardiomyopathy Category: Medical Plan: Moderate LV systolic dysfunction improved after coronary artery bypass grafting with neurohormonal modulation. Clinically doing well without signs of heart failure. Has tolerated current medications well. Continue current Entresto, carvedilol as well as Jardiance therapy. Also continue concomitant spironolactone therapy. He has not been able to uptitrate medications due to lower blood pressure. He has no signs or symptoms of heart failure. Follow-up echocardiogram in 6 months time. Signs and symptoms of heart failure were discussed. (2) CAD (coronary artery disease): Code(s): I25.10 - Atherosclerotic heart disease of cheesh-na coronary artery without angina pectoris Category: Medical Plan: CAD status post coronary artery bypass grafting. Currently not having any symptoms of angina. Continue aggressive vascular risk factor modification. Continue low-dose aspirin therapy for life. Continue high-intensity statin therapy along with ezetimibe therapy with well optimized LDL on current dual lipid therapy. Blood pressure is well optimized on current neurohormonal modulation. Continue the same. Advised to monitor blood pressure at home maintain a log. Goal blood pressure less than 130/84. Continue aggressive diabetes management goal hemoglobin A1c less than 7%. Advised to call me with any new symptoms. Follow up in the clinic in 6 months time, sooner p.r.n.. Thank you for allowing me to partake in his care Coding Level of Care Code Est Pt Level 4 (32596) Complex EM visit Add On G2211 Diagnoses Ischemic cardiomyopathy I25.5 CAD (coronary artery disease) I25.10
[2024-11-16 10:08] VITALS: BP 110/70; PULSE 70; BMI 22.5
--- OUTSIDE RECORDS SUMMARY | 2024-11-16 10:39 | XMS_ITS | Clinical Summary ---
Author Organization [facility], Address [address] [place] [address] [place] [address] Phone Care Team Providers Care Home Comfort Advisor Name Role Phone Michelle Zhang MD Primary Care Provider [phone] Allergies No known active allergies Medications aspirin [...] time 90 tablet 3 07/03/19 24 Active Praluent 75 MG/ML solution auto-injector [...] 90 capsule 3 12/24/19 24 025 Active carvedilol (COREG) 25 MG tablet TAKE 1 TABLET BY MOUTH TWICE DAILY IN THE MORNING AND IN THE EVENING 180 tablet 3 09/04/19 25 Active Active Problems Problem Noted Date Diagnosed Date Benign prostatic hyperplasia 12/24/2023 Stage 3a chronic kidney disease 07/14/2019 Essential hypertension 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 [place] [address] Health Maintenance Due Date Last Done Comments [...] age to complete this topic Pneumococcal Vaccine: 50+ Years Completed 03/03/2018, 12/08/2014, 08/17/2012 Pneumococcal Vaccine: Peds (0 to 5 Years) and At-Risk Patients (6 to 49 Years) Discontinued 03/03/2018, 12/08/2014, 08/17/2012 Influenza Vaccine Completed 03/01/2024, [...] PM EST) Hemoglobin A1C 7.1(H) (4.0-5.6) % [facility] Comment: MONITORING: In known diabetic patients, hemoglobin A1c targets should be discussed with health care provider. DIAGNOSTIC USE: ??The [place] Diabetes Association (ADA) and the World Health [...] Supplement 1 Testing performed or reported by [facility] Reference [employer], a Service of [facility], [address] [place] [phone] Guerita Jorge MD, [employer] [facility]# [id number] Blood specimen (specimen) Venous blood / Unknown 08/15/2022 2:13 PM EST 08/15/2022 2:17 PM EST us Abel Ji DO LAB BLOOD ORDERABLES Final Resu lt [facility] from Last 3 Months or Most Recently Relevant to Health Maintenance Insurance [facility] Dual SNP ([id number]) [place]END[place] [id number] Care Teams Home Comfort Advisor Relationship Specialty Start Date End Date Michelle Zhang MD PCP - General 04/20/19
== END 2024-11-16 10:27 | disposition home or self-care (01) ==
LOC: HO.HCS 09:34
PROVIDERS: PCP Family Medicine; Visit Provider Internal Medicine Cardiovascular Disease
DX: I25.5 Ischemic cardiomyopathy (principal); I25.10 Atherosclerotic heart disease of native coronary artery without angina pectoris
CPT/HCPCS: 99214; G2211

== ENCOUNTER → 2024-11-16 09:33 | Outpatient (BNVA) | payer OTHER, SELFPAY | PROVIDERS: PCP Family Medicine; Visit Provider Internal Medicine Cardiovascular Disease | DX: I25.5 Ischemic cardiomyopathy (principal); I25.10 Atherosclerotic heart disease of native coronary artery without angina pectoris | CPT/HCPCS: 99212 ==

== ENCOUNTER 2025-01-03 10:04 | Outpatient (REF) | payer OTHER, SELFPAY ==
--- OUTSIDE RECORDS SUMMARY | 2025-01-03 10:55 | XMS_ITS | Clinical Summary ---
Author Organization [facility], Address [address] [place] [address] [place] [address] Phone Care Team Providers Care Curator Medical Museum Name Role Phone Michelle Zhang MD Primary Care Provider [phone] Allergies No known active allergies Medications aspirin [...] mouth 1 (one) time each day Active carvedilol (COREG) 25 MG tablet TAKE 1 TABLET BY MOUTH TWICE DAILY IN THE MORNING AND IN THE EVENING 180 tablet 3 09/04/19 25 Active tamsulosin (FLOMAX) 0.4 MG 24 hr capsule Take 0.4 mg by mouth at bed time Active sacubitril-vals ila (Entresto) 24-26 MG per tablet Take 1 tablet by mouth every morning and evening Active tamsulosin (FLOMAX) 0.4 MG 24 hr capsuleIndicati ons:Stage 3a chronic kidney disease (HCC),Chronic systolic congestive heart failure (HCC),Type 2 diabetes mellitus with diabetic nephropathy (HCC) Take 1 capsule (0.4 mg total) by mouth 1 (one) time each day 90 capsule 3 12/24/19 24 025 Active Problems Problem Noted Date Diagnosed Date Benign prostatic hyperplasia 12/24/2023 Neuropathy due to type 2 diabetes mellitus 09/04 Stage 3a chronic kidney disease 07/14/2019 Essential hypertension 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 Proteinuria Hyperlipidemia Dyslipidemia Acute tubular necrosis Overview (07/14/2019): ischemic Systolic congestive heart failure Encounters Date Type Department Care Team Description 12/30/2024 2:45 PM EDT Office Visit [facility] [address] [place] [address] Abel Ji DO Stage 3a chronic kidney disease (HCC) (Primary Dx); Chronic systolic congestive heart failure (HCC); Type 2 diabetes mellitus with diabetic nephropathy (HCC); Benign prostatic hyperplasia from Last 3 Months Immunizations Immunization Administration Dates Next Due Hepatitis B 06/15/2015,05/03/2014,09/27/2013 Influenza, MDCK, PF, Quadrivalent 03/08/2020 Influenza, MDCK, Quadrivalen t, with preservative 04/01/2017 Moderna SARS-COV-2 01/14/2022,,08/31/2020,2020 Pneumococcal Conjugate 13-Valent 12/08/2014 TD Preservative Free 11/12/2022 Td, Unspecified 11/12/2022 Zoster 05/31/2019,03/10/2019 Social History Tobacco Use Types [...] Sign Reading Time Taken Comments Blood Pressure 124/62 12/30/2024 2:51 PM EDT Pulse 70 12/30/2024 2:51 PM EDT Temperature - - Respiratory Rate - - Oxygen Saturation - - Inhaled Oxygen Concentration - - Weight 65.8 kg (145 lb) 12/24/2023 2:17 PM EDT Height 170.2 cm (5' 7 ) 01/13/2019 12:00 PM EDT Body Mass Index 22.71 01/13/2019 12:00 PM EDT Plan of Treatment Upcoming Encounters Date Type Department Care Team (Late st Contact Info) Description 06/30/2025 1:45 PM EST Office Visit [facility] [address] [place] [address] Abel Ji DO [address] [place] [id number] Health Maintenance Due Date Last Done Comments Colorectal Cancer Screening: Annual FOBT 1998 Colorectal Cancer Screening: Colonoscopy 1998 Colorectal Cancer Screening: Sigmoidoscopy 1998 Pneumococcal Vaccine: 50+ Years (2 of 2 - PPSV23, PCV20, or PCV21) 02/02/2015 12/08/2014 Diabetes: Ophthalmology Exam 07/14/2019 Diabetes: Pedal Pulse Checked 07/14/2019 Diabetes: Sensory Foot Exam 07/14/2019 Diabetes: Visual Foot Exam 07/14/2019 Diabetes: Hemoglobin A1C 02/02/2025 025, 07/08/2024, 11/18/2023, Additional history exists Influenza Vaccine (#1) 2025 03/08/2020, 2016 Pneumococcal Vaccine: Peds (0 to 5 Years) and At-Risk Patients (6 to 49 Years) Discontinued 12/08/2014 Hepatitis B Vaccine Aged Out 06/15/2015, 05/03/2014, 09/27/2013 No longer eligible based on patient's age to complete this topic Procedures Procedure Name Priority Date/Time Associated Diagnosis Comments HEMOGLOBIN A1C Routine 08/15/2022 2:13 PM EST Stage 3a chronic kidney disease (HCC) Chronic systolic congestive heart failure (HCC) Essential hypertension from Last 3 Months or Most Recently Relevant to Health Maintenance Results * (ABNORMAL) Hemoglobin A1c (08/15/2022 2:13 PM EST) Hemoglobin A1C 7.1(H) (4.0-5.6) % [facility] Comment: MONITORING: In known diabetic patients, hemoglobin A1c targets should be discussed with health care provider. DIAGNOSTIC USE: The [place] Diabetes Association (ADA) and the World Health [...] Supplement 1 Testing performed or reported by [facility], a Service of [facility], [address] [place] [id number] Guerita Jorge MD, Commercial Roofing Estimator [facility]# [id number] Blood specimen (specimen) Venous blood / Unknown 08/15/2022 2:13 PM EST 08/15/2022 2:17 PM EST us Abel Ji DO LAB BLOOD ORDERABLES Final Resu lt [facility] from Last 3 Months or Most Recently Relevant to Health Maintenance Insurance [employer] Dual SNP ([id number]) [place] [id number] Care Teams Curator Medical Museum Relationship Specialty Start Date End Date Michelle Zhang MD PCP - General 04/20/19
--- OUTSIDE RECORDS SUMMARY | 2025-01-03 10:56 | XMS_ITS | Patient Health Record ---
Author Organization [facility] Address [address] [place] [address] Care Team Providers Care Recreation Instructor Name Role Phone Leatha SUBRAMANIAN, Michelle Primary Care Provider Fausto Knight [phone] Allergies No Known Allergies Reason For Referral [...] Problem Status W/U Status Risk Notes Problem [id number] Colon cancer screening (Z12.11) Active confirmed Problem Diverticular disease of colon (504177908) Diverticulosis of large intestine without perforation or abscess without bleeding (K57.30) Active confirmed Problem [id number] Long-term use of aspirin therapy (Z79.82) Active confirmed Plan Of Treatment Future Test Test Name Order Date COLONOSCOPY 01/29/2023 Insurance Providers Payer Name Payer Address Payer Phone Subscriber Number Group Number Insured Name Patient Relationship to Insured Coverage Start Date Coverage End Date [facility] [address] Attn Claims [place] [id number] [facility] Self - patient is the insured MEDICARE OF [place] [address] [place] [address] [phone] [id number] [facility] Self - patient is the insured Medical (General) History Medical History History ICD Code NIDDM Hyperlipidemia Hypertension Ischemic heart disease- Dr. Interiano Hx of H pylori Stage 3 chronic kidney disease GERD Negative colonoscopy [place] [address] Jesse barrios Denies NC,CVA,Lung disease Coronary artery diasease with CABG as be low Surgical History Surgery Date(Month/Year) CCY 3V CABG 01/21/2017
--- OUTSIDE RECORDS SUMMARY | 2025-01-03 10:56 | XMS_ITS | Encounter Summary ---
Author Organization [employer] Address [address] [place] [address] [address] [place] [address] Care Team Providers Care Quality Assurance Tester Name Role Phone Michelle Zhang MD Primary Care Provider [phone] Duke Betancourt PharmD Unavailable [phone] Reason for Visit * Reason Onset Date Comments FYI 06/03/2023 Encounter Details Date Type Department Care Team ([facility] Contact Info) Description 06/03/2023 Telephone [facility] [address], [place] [phone] Michelle Zhang MD [address] [place], [place] [phone] FYI Social History Tobacco Use Types Packs/Day [...] - 06/03/2023 10:57 AM EST Tc from [facility] with [facility] stating that their will be discharging pt due to not being ableto reach pt. documented in this encounter Plan of Treatment Upcoming Encounters Date Type Department Care Team (Late st Contact Info) Description 02/07/2025 11:00 AM EDT Office Visit [facility] [address] [place] [address] Michelle Zhang MD [address] [place] [address] documented as of this encounter Goals Goal Patient Goal Type Associated Problems Recent Progress Patient-Stated? Author Blood Pressure < 140/90 Blood Pressure 140/94( 025 11:18 AM EDT) No Duke Betancourt, Wolf documented as of this encounter Visit Diagnoses Not on filedocumented in this encounter Additional Health Concerns Assessment Noted Time PHQ-9 Depression Total Score: 0 09/10/19 23 10:48 AM EDT documented as of this encounter Care Teams Quality Assurance Tester Relationship Specialty Start Date End Date Michelle Zhang MD [address] [place] [address] PCP - General Family Medicine 04/15/12 Duke Betancourt PharmD [address] [place] [address] Pharmacist Internal Medicine 08/26/22 documented as of this encounter
[2025-01-03 11:11] LABS: Hemoglobin A1C 321.0862 umol/L; Total Hemoglobin (HGBA1C) 4368.9581 umol/L
[2025-01-03 11:37] LABS: Anion Gap 14 (12-20); Blood Urea Nitrogen 27 mg/dL (9-16); Calcium 9.2 mg/dL (8.4-10.2); Carbon Dioxide 26 mmol/L (22-29); Chloride 104 mmol/L (96-108); Estimated Glomerular Filt Rate 44; Potassium 5.1 mmol/L (3.3-5.1); Sodium 139 mmol/L (135-145)
[2025-01-03 12:15] LABS: Microalbum/Creatinine Ratio Ur 142.3 ug/mg cr (<30)
== END 2025-01-03 10:05 | disposition home or self-care (01) ==
LOC: HO.LAB 10:04
PROVIDERS: PCP Family Medicine; Visit Provider Internal Medicine Nephrology
DX: N18.31 Chronic kidney disease, stage 3a (principal); I50.22 Chronic systolic (congestive) heart failure; E11.21 Type 2 diabetes mellitus with diabetic nephropathy; N40.0 Benign prostatic hyperplasia without lower urinary tract symptoms
CPT/HCPCS: 36415; 80051; 82043; 82310; 82565; 82570; 83036; 84520

== ENCOUNTER 2025-03-23 18:21 | Emergency (ER) | payer OTHER, SELFPAY ==
--- NOTE | ~2025-03-23 | XR_ITS ---
CLINICAL HISTORY: CP 1 view chest x-ray Comparison: CR/SR - XR CHEST 2 VIEWS - 11/26/23 10:19 EDT Findings: No consolidation or effusion. Heart size is normal. Sternotomy changes. No acute fracture. Cholecystectomy clips. IMPRESSION: 1. No acute findings. This document has been electronically signed by: Juliana Cheng MD on 03/23/2025 19:06:39
--- NOTE | 2025-03-23 18:23 | ECG_ITS ---
Test Reason : CP Blood Pressure : */* mmHG Vent. Rate : 69 BPM Atrial Rate : 69 BPM P-R Int : 186 ms QRS Dur : 106 ms QT Int : 406 ms P-R-T Axes : 25 -17 100 degrees QTcB Int : 435 ms Normal sinus rhythm Left ventricular hypertrophy with repolarization abnormality ( R in aVL , Sokolow-Desai , Reuben product ) Abnormal ECG When compared with ECG of 19-Oct-2023 10:15, Premature ventricular complexes are no longer Present Referred By: Maribell Herrera Electronically Signed By: CATHLEEN BREWSTER MD
[2025-03-23 18:28] VITALS: BP 173/91; PULSE 72; RESP 16; TEMP 36.1; O2SAT 98; BMI 21.6
[2025-03-23 19:23] LABS: MANUAL DIFF FLAG NO
[2025-03-23 19:25] LABS: Hematocrit 50.9 % (42.0-52.0); Hemoglobin 17.2 g/dl (14.0-18.0); Imm Gran Abs Auto 0.03 X10*3/uL (0.00-0.03); Imm Gran Pct Auto 0.3 % (0.0-0.4); Lymphocytes Absolute Auto 1.3 X10*3/uL (1.2-4.9); Mean Corpuscular HGB Conc 33.8 g/dl (31.0-36.0); Mean Corpuscular Hemoglobin 29.9 pg (27.0-33.0); Mean Corpuscular Volume 88.5 fL (80.0-98.0); NRBC Abs Auto 0.000 X10*3/uL (0.0-0.012); NRBC Pct Auto 0.0 /100WBC (0.0-0.2); Platelet Count 175 X10*3/uL (160-400); Red Blood Count 5.75 X10*6/uL (4.60-5.80); White Blood Count 8.9 X10*3/uL (4.8-10.8)
[2025-03-23 19:32] LABS: INTERNATIONAL NORM RATIO 1.1 (0.9-1.1); Prothrombin Time 12.1 SEC (10.9-12.4)
[2025-03-23 19:42] LABS: Alanine Aminotransferase 21 U/L (0-40); Albumin Level 3.9 g/dL (3.5-5.0); Alkaline Phosphatase 102 U/L (39-117); Anion Gap 11 (12-20); Aspartate Amino Transferase 21 U/L (5-37); Blood Urea Nitrogen 21 mg/dL (9-16); Calcium 9.2 mg/dL (8.4-10.2); Carbon Dioxide 27 mmol/L (22-29); Chloride 106 mmol/L (96-108); Creatinine Clr Calc Pharmacy 52.7; Estimated Glomerular Filt Rate > 60; Magnesium 2.1 mg/dL (1.6-2.6); Potassium 3.6 mmol/L (3.3-5.1); Sodium 140 mmol/L (135-145); Total Protein 7.5 g/dL (6.5-8.0)
[2025-03-23 19:49] LABS: Troponin-I High Sensitivity 4.7 ng/L (<3.5-35.0)
--- NOTE | 2025-03-23 21:31 | ED_ITS ---
HPI - Chest Pain General Chief Complaint: Chest Pain Stated Complaint: CP Time Seen by Provider: 03/23/25 21:43 Source: patient Mode of arrival: ambulatory Limitations: language barrier ([place]) History of Present Illness ED Provider: DELFINA Moore Related Data Home Medications ?Medication ?Instructions ?Recorded ?Confirmed aspirin 81 mg tablet,delayed 81 mg PO DAILY 03/08/21 0 11/16/24 release carvedilol 25 mg tablet 25 mg PO BID 03/08/21 empagliflozin 25 mg tablet 25 mg PO DAILY 03/08/2109/07 (Jardiance) ezetimibe 10 mg tablet 10 mg PO BEDTIME 03/08/21 mirtazapine 15 mg tablet 7.5 mg PO BEDTIME 03/08/21 0 11/16/24 pantoprazole 40 mg tablet,delayed 40 mg PO DAILY@0630 03/08/21 11/16/24 release dulaglutide 0.75 mg/0.5 mL 0.75 mg subcut TH@0902/1511/16/24 subcutaneous pen injector (Trulicity) amlodipine 5 mg tablet 5 mg PO DAILY@1200 10/19/23 11/16/24 docusate sodium 100 mg capsule 100 mg PO BID PRN Const ipation 10/19/23 11/16/24 spironolactone 25 mg tablet 25 mg PO BEDTIME 10/19/23 11/16/24 Previous Rx's ?Medication ?Instructions ?Recorded pen needle, diabetic 32 gauge x #100 ea 05/11/2306/19 sacubitril 24 mg-valsartan 26 mg 1 tab PO BID 90 days #180 tabs 06/11/24 tablet (Entresto) atorvastatin 80 mg tablet 80 mg PO BEDTIME #90 tabs evolocumab 140 mg/mL subcutaneous 140 mg subcut Q2W #2 mL 03/24/25 pen injector (Ivis Zimmerman) Allergies Allergy/AdvReac Type Severity Reaction Status Date / Time No Known Allergies Allergy Verified 03/23/25 18:34 Review of Systems 2 Review of Systems: Yes all other systems are reviewed and are negative PMFSH Past Medical History Attestation statement: The following information was validated with the patient. Source: old records reviewed, obtained from family, nursing notes reviewed and other (bilingual interpreter) Medical History Hospital discharge follow-up Heart failure with reduced ejection fraction Renal failure GERD (gastroesophageal reflux disease) Chronic renal insufficiency Hyperlipidemia Diabetes mellitus Ischemic cardiomyopathy HTN (hypertension) CAD (coronary artery disease) Surgical History S/P CABG x 4 H/O colonoscopy Hx of cholecystectomy Social History Social History Household Members: Spouse Housing: Apartment Do you presently have visiting nurse or other home services: Yes ([facility] 1/month.) Alcohol intake: former Comment: at bedside Patient Tobacco Use Status: Never used Tobacco Second Hand Smoke Exposure: No Advance Directives: Yes Advance Directives on File: Yes Advance Directives Date on File: 05/09/23 Do you have a plan to hurt others: No Plan service: No Physical Exam 2 Exam: Exam: General: Appears in no acute distress, appears well-nourished body habitus is normal, appears stated age. No septic or ill-appearing. Vitals were reviewed as normal, and PMH/Social and Surgical hx was reviewed, including allergies and current medications. - reviewed for prior visits here Head: Normocephalic, no obvious trauma or skin lesions noted. Eyes: EOMI ENMT: moist oral mucosa Neck: trachea midline Cardiovascular: peripheral perfusion normal, Regular heart rate, regular rhythm Respiratory: no respiratory distress Abdomen: non-distended Extremities: warm and moving without difficulty with exception to left upper extremity. TTP over bicipital groove, abduction of GH joint reproduces pain in bicep, + speeds test, neg neer and hawkings, neg spurling, no midline tenderness, step-offs or deformities of entire spine, moving neck without pain or difficulty 45 degree each direction, no chest wall tenderness other than slightly over lateral pectoralis major without crepitus or ecchymosis, no flail chest. Psych: Cooperative Neuro: Alert and oriented. Vital Signs: Vital Signs: Last Vital Signs Temp 97.0 F 03/23/25 21:49 Pulse 72 03/23/25 21:49 Resp 16 03/23/25 21:49 BP 173/91 H 03/23/25 21:49 Pulse Ox 98 10/08/25 21:49 O2 Del Method Room Air 03/23/25 21:49 BMI result Body Mass Index 21.6 Medical Decision Making Medical Decision Making [facility] Narrative: Patient presents to ED today for evaluation of left sided shoulder pain . STEFANIE is lifting grocery items yesterday. Given cardiac etiology (triple bypass), he had cardiac work up initiated from triage, but no cp, sob or infectious sxs. EKG without concern for acute ischemia or malignant arrhythmia, trop 4.7, ACS can be ruled out. His PE is most suggestive of musculoskeletal etiology. No pleuritic pain. Formal inperson hourly sign language interpreter was utlized. H and P as above. Patient is afebrile with stable vitals and well-appearing. ?History and physical as stated above. ?Patient is neurovascular intact in the affected extremity. At this time no evidence of NVC to warrant further work up/ intervention or consult. ?Patient's symptoms are consistent with bicipital tendonitis. ?Discussed icing it, elevating and alternating ibuprofen and Tylenol for discomfort. ?Discussed that there is no significant improvement in the next 1 to 2 weeks to follow-up with an ?orthopedic clinic, information given. Discussed symptomatic treatment with the patient. ?Discussed return precautions. ?Patient verbalized understanding of the above plan and is in agreement with the above plan. ?The patient was discharged home in stable condition with return precautions. Differential Diagnosis Differential Diagnoses: The differential diagnosis associated with the presentation includes ACS fracture/dislocation impingement syndrome left shoulder strain cervical radiculopathy bicipital tendonitis Admission/Observation Consideration of admission/observation: Escalation of care including admission/observation considered Lab Data [facility] Lab Attestation statement: I reviewed the patient's lab results. 03/23/25 18:52 03/23/25 18:52 Labs: Lab Results 03/23/25 Range/Units 18:52 WBC 8.9 (4.8-10.8) X10*3/uL RBC 5.75 (4.60-5.80) X10*6/uL Hgb 17.2 (14.0-18.0) g/dl Hct 50.9 (42.0-52.0) % MCV 88.5 (80.0-98.0) fL MCH 29.9 (27.0-33.0) pg MCHC 33.8 (31.0-36.0) g/dl RDW 13.4 (11.0-16.0) % Plt Count 175 (160-400) X10*3/uL MPV 10.4 (9.4-12.4) fL Immature Gran % (Auto) 0.3 (0.0-0.4) % Neut % (Auto) 68.6 (45-73) % Lymph % (Auto) 14.7 L (20-40) % [place] % (Auto) 9.3 (2-11) % Eos % (Auto) 6.7 H (0-4) % Baso % (Auto) 0.4 (0-2) % Lymph # (Auto) 1.3 (1.2-4.9) X10*3/uL [place] # (Auto) 0.8 (0.1-1.2) X10*3/uL Eos # (Auto) 0.6 H (0.0-0.4) X10*3/uL Baso # (Auto) 0.0 (0.0-0.2) X10*3/uL Abs Immat Gran (auto) 0.03 (0.00-0.03) X10*3/uL Absolute Neuts (auto) 6.1 (2.0-8.3) x10*3/uL Absolute Nucleated RBC 0.000 (0.0-0.012) X10*3/uL Nucleated RBC % (auto) 0.0 (0.0-0.2) /100WBC PT 12.1 (10.9-12.4) SEC INR 1.1 (0.9-1.1) Sodium 140 (135-145) mmol/L Potassium 3.6 D (3.3-5.1) mmol/L Chloride 106 (96-108) mmol/L Carbon Dioxide 27 (22-29) mmol/L Anion Gap 11 L (12-20) BUN 21 H (9-16) mg/dL Creatinine 1.17 (0.5-1.4) mg/dL Estim Creat Clear Calc 52.7 Estimated GFR > 60 Random Glucose 110 (60-115) mg/dL Calcium 9.2 (8.4-10.2) mg/dL Magnesium 2.1 (1.6-2.6) mg/dL Total Bilirubin 0.3 (0.0-1.0) mg/dL AST 21 (5-37) U/L ALT 21 (0-40) U/L Alkaline Phosphatase 102 (39-117) U/L Troponin I High Sens 4.7 D (<3.5-35.0) ng/L Total Protein 7.5 (6.5-8.0) g/dL Albumin 3.9 (3.5-5.0) g/dL Independent Interpretation I performed an independent interpretation of an: EKG and Plain X-Ray Interpretation: EKG: NSR no obvious acute ischemia or malignant arrhythmia. CXR: no widened mediastinum, obvious mass, or PTX Radiology Impression Discussion of test interpretation with radiology: I have reviewed the radiologist's reading. Independent Historian Clinical information obtained from an independent historian. History obtained from or confirmed by: Spouse Tests considered The following testing was considered but not selected: would have considered MRI spine or CTA chest had there been concerns for NVC or dissection/ PE Prescription Management I considered prescription management with: Pain Medication Chronic Conditions Patient?s care impacted by: Other Social Determinants Patient?s care significantly limited by Social Determinants of Health including: Other Social Determinant of Health Critical Care Time Critical Care Time Critical Care Time: No Discharge Plan Discharge Clinical Impression: Biceps tendinitis of left shoulder Patient Disposition: Home, Self-Care Instructions: Tendinitis (ED) Additional Instructions: You had work up here today that does not show cardiac etiology. Your presentation is most consistent with your bicipital tendon being strain from your recent lifting. Avoiding any aggravating activity even 5 lb. You can alternate Tylenol for discomfort along with topical measures such as Biofreeze icy hot and Joshua-Solorio. FOllow up with orthopedics Prescriptions: No Action Entresto 24-26 mg tablet 1 tab PO BID 90 Days Qty: 180 3RF atorvastatin 80 mg tablet 80 mg PO BEDTIME Qty: 90 3RF Repatha SureClick 140 mg/mL pen injector 140 mg subcut Q2W Qty: 2 5RF amlodipine 5 mg tablet 5 mg PO DAILY@1200 spironolactone 25 mg tablet 25 mg PO BEDTIME docusate sodium 100 mg capsule 100 mg PO BID PRN (Reason: Constipation) (DME) pen needle, diabetic 32 gauge x 1/4 needle Qty: 100 0RF Rx Instructions: Use four times a day or as directed. aspirin 81 mg tablet,delayed release (DR/EC) 81 mg PO DAILY ezetimibe 10 mg tablet 10 mg PO BEDTIME Jardiance 25 mg tablet 25 mg PO DAILY pantoprazole 40 mg tablet,delayed release (DR/EC) 40 mg PO DAILY@0630 mirtazapine 15 mg tablet 7.5 mg PO BEDTIME carvedilol 25 mg tablet 25 mg PO BID Trulicity 0.75 mg/0.5 mL pen injector 0.75 mg subcut TH@0900 Referrals: [facility] [Provider Group, Orthopedics] Interventions: ED Discharge Assessment Last Done: 03/23/25 21:49 Discharge Date/Time: 03/23/25 21:49 Print Language: [place]
[2025-03-23 21:49] VITALS: BP 173/91; PULSE 72; RESP 16; TEMP 36.1; O2SAT 98
== END 2025-03-23 21:49 | disposition home or self-care (01) ==
PROVIDERS: Emergency Provider Emergency Medicine Emergency Medical Services
DX: M75.22 Bicipital tendinitis, left shoulder (principal); I13.0 Hypertensive heart and chronic kidney disease with heart failure and stage 1 through stage 4 chronic kidney disease, or unspecified chronic kidney disease; E11.22 Type 2 diabetes mellitus with diabetic chronic kidney disease; N18.9 Chronic kidney disease, unspecified; I50.20 Unspecified systolic (congestive) heart failure; I25.10 Atherosclerotic heart disease of native coronary artery without angina pectoris
CPT/HCPCS: 36415; 71045; 80053; 83735; 84484; 85025; 85610; 93005; 99283

== ENCOUNTER → 2025-03-23 18:23 | Outpatient (BNV) | payer OTHER, SELFPAY | PROVIDERS: Emergency Provider Emergency Medicine Emergency Medical Services; Visit Provider Internal Medicine Cardiovascular Disease | DX: I42.2 Other hypertrophic cardiomyopathy (principal) | CPT/HCPCS: 93010 ==

== ENCOUNTER → 2025-03-23 18:39 | Outpatient (BNV) | payer OTHER, SELFPAY | PROVIDERS: Visit Provider Student in an Organized Health Care Education/Training Program | DX: R07.9 Chest pain, unspecified (principal) | CPT/HCPCS: 71045 ==

== ENCOUNTER 2025-04-13 10:28 | Outpatient (REF) | payer OTHER, SELFPAY ==
--- OUTSIDE RECORDS SUMMARY | 2025-04-08 14:00 | XMS_ITS | Encounter Summary ---
Author Organization [employer] Address [address] [facility] 7t [place] [address] Care Team Providers Care Patient Relations Manager Name Role Phone Michelle Zhang MD Primary Care Provider [phone] Duke Betancourt PharmD Unavailable [phone] Reason for Visit * Reason Comments Chest Pain Encounter Details Date Type Department Care Team ([facility] st Contact Info) Description 04/08/2025 2:00 PM EDT Office Visit [facility] [address] [place], [place] [phone] Mel Duran MD [address] [place] [address] Pectoralis muscle strain, initial encounter (Primary Dx) Social History Tobacco Use Types Packs/Day Years Used Date Smoking Tobacco: Never Passive Smoke Exposure: Never Smokeless Tobacco: Never Alcohol Use Standard Drinks/Week Comments Never 0 (1 standard drink = 0.6 oz pur e alcohol) Depression Answer Date Recorded Patient Health Questionnaire-9 Score 0 02/07/2025 Patient Health Questionnaire-9 Score 0 02/07/2025 Last PHQ-9: Questionnaire Data Not on file 0 02/07/2025 Housing Stability Answer Date Recorded What is your housing situation today? I have rola luis felipe 11/02/[address] you li ve. Do you have problems with any of the following? Oven or stove not working 11/02/2024 Food Insecurity Answer Date Recorded Within the past 12 months, y ou worried that your food would run out before you got money to buy more: Never True 11/02/2024 Within the past 12 months,th e food you bought just didn't last and you didn't have enough money to get more: Never True Transportation Answer Date Recorded In the past 12 months, has l ack of transportation kept you from medical appts, meetings, work or from getting things needed for daily living? No 11/02/2024 Utilities Answer Date Recorded In the past 12 months, has t he electric, gas, oil or water company threatened to shut off services in your home? Yes 11/02/2024 Depression Answer Date Recorded Patient Health Questionnaire-2 Score 0 02/07/2025 Internet Access Answer Date Recorded Internet Access Q1 Yes 11/02/2024 Internet Access Q2 Not on file 11/02/2024 Sex and Gender Information Value Date Recorded Sex Assigned at Male 04/15/2022 10:14 AM EDT Legal Sex Male 10:14 AM EDT Gender Identity Male 04/15/2022 10:14 AM EDT Sexual Orientation Straight 04/15/2022 10 :14 AM EDT documented as of this encounter Last Filed Vital Signs Vital Sign Reading Time Taken Comments Blood Pressure 157/96 04/08/2025 1:14 PM EDT Pulse 73 04/08/2025 1:14 PM EDT Temperature 36.4 C (97.5 F) 04/08/2025 1:14 PM EDT Respiratory Rate 17 04/08/2025 1:14 PM EDT Oxygen Saturation 98% 04/08/2025 1:14 PM EDT room air Inhaled Oxygen Concentration - - Weight - - Height - - Body Mass Index - - documented in this encounter Progress Notes * Mel Duran MD - 04/08/2025 2:00 PM EDT Images from the original note were not included. SUBJECTIVE: Johny Mansfield is a 74 y.o. year old male who presents for [facility] [place]/. Denies recent illness, injury, or hospitalization. Acute Concerns: Patient complaining of left-sided chest pain radiated to left shoulder x 2 days that increases mostly with movement of the left arm and coughing. Patient says symptoms started after he was doing laundry and bring in the laundry back to the second floor. Symptoms improved with rest and with holding the chest when coughing. He does not have any fever, no sputum production, no exertional chest pain or back pain. Social History Social History Narrative Not on file Problem List[1] Family History[2] Review of Systems Constitutional: Negative for fever. HENT: Negative for congestion, ear pain, rhinorrhea and sore throat. Eyes: Negative for pain and discharge. Respiratory: Negative for cough and shortness of breath. Cardiovascular: Positive for chest pain. Gastrointestinal: Negative for abdominal pain, constipation, diarrhea and nausea. Endocrine: Negative for polydipsia. Genitourinary: Negative for dysuria and frequency. Musculoskeletal: Negative for arthralgias, back pain and neck pain. Neurological: Negative for dizziness, numbness and headaches. Psychiatric/Behavioral: Negative for agitation. OBJECTIVE: Vitals: 04/08/25 1314 BP: (!) 157/96 Pulse: 73 Resp: 17 Temp: 97.5 ??F (36.4 ??C) SpO2: 98% Physical Exam Constitutional: Appearance: Normal appearance. HENT: Right Ear: Tympanic membrane and ear canal normal. Left Ear: Tympanic membrane and ear canal normal. Mouth/Throat: Mouth: Mucous membranes are moist. Pharynx: No oropharyngeal exudate or posterior oropharyngeal erythema. Eyes: Pupils: Pupils are equal, round, and reactive to light. Cardiovascular: Rate and Rhythm: Normal rate and regular rhythm. Heart sounds: No murmur heard. Pulmonary: Breath sounds: Normal breath sounds. No wheezing. Chest: Chest wall: Tenderness (left sided towards left shoulder) present. Abdominal: General: Bowel sounds are normal. Palpations: Abdomen is soft. Tenderness: There is no abdominal tenderness. Musculoskeletal: General: No tenderness. Normal range of motion. Cervical back: Normal range of motion. No tenderness. Skin: General: Skin is warm. Neurological: General: No focal deficit present. Mental Status: He is alert and oriented to person, place, and time. Psychiatric: Mood and Affect: Mood normal. Problem List Items Addressed This Visit Pectoralis muscle strain - Primary He has atypical chest pain. Recommended to avoid lifting objects or any exertion for least 1 week Recommended heat to affected area + diclofenac gel + Tylenol as needed Re consult as needed exertional chest pain, DUNN or dizziness Relevant Medications Diclofenac Sodium 1 % gel acetaminophen (Tylenol Extra Strength) 500 MG tablet Follow Up: Medications Ordered Prior to Encounter[3] [1] Patient Active Problem List Diagnosis Acquired keratoderma Allergic rhinitis Backache Mood disorder (CMS/HCC) Dyslipidemia Gastroesophageal reflux disease Ischemic cardiomyopathy Hypertension Ischemic heart disease Proteinuria S/P CABG x 4 Stage 3a chronic kidney disease ([facility]) ([facility]) Type 2 diabetes mellitus ([facility]) Nonproliferative diabetic retinopathy ([facility]) Diabetic nephropathy with proteinuria ([facility]) Long-term use of aspirin therapy Osteoarthritis of multiple joints Periodontal disease Heart failure with reduced ejection fraction ([facility]) Constipation Ingrown toenail of both feet Diabetic neuropathy associated with type 2 diabetes mellitus ([facility]) Bradycardia Right hip pain Frequent PVCs History of COVID-19 Pain in both lower extremities PAD (peripheral artery disease) Nocturia Pectoralis muscle strain [2] No family history on file. [3] Current Outpatient Medications on File Prior to Visit Medication Sig Dispense Refill amLODIPine (Norvasc) 5 MG tablet TAKE 1 TABLET BY MOUTH EVERY EVENING 90 tablet 3 ammonium lactate (Lac-Hydrin) 12 % lotion Apply topically if needed for dry skin. 225 g 3 Aspirin Low Dose 81 MG EC tablet TAKE 1 TABLET BY MOUTH EVERY MORNING 90 tablet 3 atorvastatin (Lipitor) 80 MG tablet Take 1 tablet by mouth at bedtime. Blood Glucose Monitoring Suppl (AdaptlySt[employer] Lite) w/Device kit 1 kit 3 times daily. Check blood sugarthree times daily 1 kit 0 Blood Pressure Monitor kit Check blood pressure once daily and as needed 1 kit 0 carvedilol (Coreg) 25 MG tablet TAKE 1 TABLET BY MOUTH TWICE DAILY IN THE MORNING AND IN THE EVENING Continuous Glucose Book Illustrator (AdaptlyStyle Lilliam 3 [place]) device 1 each Once per day. Use as directed for CGM 1 each 0 Continuous Glucose Sensor (FreeStyle Lilliam 3 Plus Sensor) misc 1 each every 15 days. Apply 1 every 15 days as directed for CGM 2 each 11 Entresto 24-26 MG tablet TAKE 1 TABLET BY MOUTH TWICE DAILY IN THE MORNING AND IN THE EVENING ezetimibe (Zetia) 10 MG tablet TAKE 1 TABLET BY MOUTH AT BEDTIME 90 tablet 3 glucose blood (AdaptlyStyle Precision Nicholas Test) test strip Use to test blood sugar 3 times daily in case of CGM failure or extremes of BG 100 each 11 Jardiance 25 MG TAKE 1 TABLET BY MOUTH EVERY MORNING 90 tablet 3 Ketotifen Fumarate 0.035 % solution Administer 1 drop into affected eye(s) 2 times daily. 5 mL 1 mirtazapine (Remeron) 15 MG tablet TAKE 1/2 TABLET BY MOUTH AT BEDTIME Multiple Vitamin (Multivitamin) tablet TAKE 1 TABLET BY MOUTH EVERY MORNING 90 tablet 3 Nutritional Supplements (Glucerna Shake) liquid Drink 2-3 cans daily pantoprazole (ProtoNix) 40 MG EC tablet TAKE 1 TABLET BY MOUTH EVERY MORNING 90 tablet 3 Repatha SureClick 140 MG/ML injection INJECT 1 PEN (140 MG) SUBCUTANEOUSLY EVERY 14 DAYS spironolactone (Aldactone) 25 MG tablet TAKE 1 TABLET BY MOUTH AT BEDTIME 90 tablet 3 tamsulosin (Flomax) 0.4 MG 24 hr capsule Take 1 capsule (0.4 mg) by mouth at bedtime. 90 capsule 3 traZODone (Desyrel) 50 MG tablet Take 1 tablet by mouth as needed for sleep TRUEplus Lancets 33G misc TEST BLOOD SUGAR THREE TIMES DAILY 100 each 11 Trulicity 0.75 MG/0.5ML solution auto-injector INJECT ONE PEN (=0.75MG) SUBCUTANEOUSLY ONCE A WEEK DIRECTED 2 mL 11 [DISCONTINUED] alirocumab (Praluent) 75 MG/ML injection Inject 1 mL (75 mg) under the skin every 14(fourteen) days. 2.24 mL 11 [DISCONTINUED] docusate sodium (Colace) 100 MG capsule TAKE 1 CAPSULE BY MOUTH TWICE DAILY IN THE MORNING AND IN THE EVENING NEEDED 180 capsule 0 [DISCONTINUED] insulin degludec (Tresiba FlexTouch) 100 UNIT/ML injection Administer 10 units subcutaneously daily. 3 mL 12 [DISCONTINUED] pen needle 32G x 4 mm misc Use as instructed 100 each 11 No current facility-administered medications on file prior to visit. documented in this encounter Miscellaneous Notes * Assessment & Plan Note - Mel Duran MD - 04/08/2025 2:09 PM EDT Associated Problem(s): Pectoralis muscle strain He has atypical chest pain. Recommended to avoid lifting objects or any exertion for least 1 week Recommended heat to affected area + diclofenac gel + Tylenol as needed Re consult as needed exertional chest pain, DUNN or dizziness documented in this encounter Plan of Treatment Upcoming Encounters Date Type Department Care Team (Late st Contact Info) Description 05/10/2025 10:30 AM EST Office Visit [address] [phone] Michelle [place] [address] 06/27/2025 11:30 AM EST Medication Management [address] [address] Duke Betancourt, Wolf [address] [place] [phone] documented as of this encounter Goals Goal Patient Goal Type Associated Problems Recent Progress Patient-Stated? Author Blood Pressure < 140/90 Blood Pressure 157/96( 025 1:14 PM EDT) No Duke Betancourt, Wolf documented as of this encounter Visit Diagnoses Diagnosis Pectoralis muscle strain, initial encounter- Primary documented in this encounter Additional Health Concerns Assessment Noted Time PHQ-9 Depression Total Score: 0 02/08/20 11:06 AM EDT documented as of this encounter Care Teams Patient Relations Manager Relationship Specialty Start Date End Date Michelle Zhang MD [address] [place] [phone] PCP - General Family Medicine 04/15/12 Duke Betancourt, SanjayD [address] [place] [phone] Pharmacist Pharmacy 03/18/25 documented as of this encounter
[2025-04-13 12:34] LABS: Microalbum/Creatinine Ratio Ur 220.9 ug/mg cr (<30)
--- OUTSIDE RECORDS SUMMARY | 2025-04-13 12:59 | XMS_ITS | Encounter Summary ---
Author Organization [employer] Address [address] [place] [address] 7t [place] [address] Care Team Providers Care Farm Loan Representative Name Role Phone Michelle Zhang MD Primary Care Provider [phone] Duke Betancourt PharmD Unavailable [phone] Duke Betancourt PharmD Unavailable [phone] Reason for Visit * Reason Onset Date Comments FYI 06/03/2023 Encounter Details Date Type Department Care Team (Late st Contact Info) Description 06/03/2023 Telephone [facility] [address] [place], [place] [phone] Michelle Zhang MD [address] [place], [place] [phone] FYI Social History Tobacco Use Types Packs/Day [...] - 06/03/2023 10:57 AM EST Tc from [facility] with [facility] stating that their will be discharging pt due to not being ableto reach pt. documented in this encounter Plan of Treatment Upcoming Encounters Date Type Department Care Team (Late st Contact Info) Description 05/10/2025 10:30 AM EST Office Visit [facility] [address] [place] [phone] Michelle Zhang MD [address] [place] [phone] 06/27/2025 11:30 AM EST Medication Management [facility] [address] [place] [address] Duke Betancourt, SanjayD [address] [place] [phone] documented as of this encounter Goals Goal Patient Goal Type Associated Problems Recent Progress Patient-Stated? Author Blood Pressure < 140/90 Blood Pressure 157/96( 025 1:14 PM EDT) No Duke Betancourt, PharmD documented as of this encounter Visit Diagnoses Not on filedocumented in this encounter Additional Health Concerns Assessment Noted Time PHQ-9 Depression Total Score: 0 09/10/19 10:48 AM EDT documented as of this encounter Care Teams Farm Loan Representative Relationship Specialty Start Date End Date Michelle Zhang MD [address] [place] [address] PCP - General Family Medicine 04/15/12 Duke Betancourt, PharmD [address] [place] [phone] Pharmacist Internal Medicine 08/26/22 03/17/25 Duke Betancourt, Wolf [address] [place] [phone] Pharmacist Pharmacy 03/18/25 documented as of this encounter
--- OUTSIDE RECORDS SUMMARY | 2025-04-13 12:59 | XMS_ITS | Encounter Summary ---
Author Organization [employer] Address [address] [place] [address] 7t [place] [address] Care Team Providers Care Roller Mill Tender Name Role Phone Michelle Zhang MD Primary Care Provider [phone] Duke Betancourt PharmD Unavailable [phone] Duke Betancourt PharmD Unavailable [phone] Encounter Details Date Type Department Care Team (Late st Contact Info) Description 10/03/2023 Orders Only [facility] [address] [place], [place] [phone] Michelle Zhang MD [address] [place], [place] [phone] Social History Tobacco Use Types Packs/Day Years [...] Description 05/10/2025 10:30 AM EST Office Visit [facility] [address] [place] [phone] Michelle Zhang MD [address] [place] [phone] 06/27/2025 11:30 AM EST Medication Management [address] [address] Duke Betancourt PharmD [address] [place] [address] [phone] documented as of this encounter Goals Goal [...] documented as of this encounter Care Teams Roller Mill Tender Relationship Specialty Start Date End Date Michelle Zhang MD [address] [place] [phone] PCP - General Family Medicine 04/15/12 Duke Betancourt PharmD [address] [place] [address] [phone] Pharmacist Internal Medicine 08/26/22 03/17/25 Duke Betancourt, PharmD [address] [place] [address] [place] [phone] Pharmacist Pharmacy 03/18/25 documented as of this encounter
--- OUTSIDE RECORDS SUMMARY | 2025-04-13 12:59 | XMS_ITS | Encounter Summary ---
Author Organization [employer] Address [address] [facility] [address] 7t [place] [address] Care Team Providers Care Petal Shaper Hand Name Role Phone Michelle Zhang MD Primary Care Provider Duke Betancourt PharmD Unavailable [phone] Encounter Details Date Type Department Care Team (Latest Contact Info) Description 04/08/2025 Travel Social History Tobacco Use Types Packs/Day Years [...] housing situation today? I have rola briscoe 11/02/[address] you li [...] Description 05/10/2025 10:30 AM EST Office Visit [facility] [address] [place] [address] Michelle Zhang MD [address] [place] [phone] 06/27/2025 11:30 AM EST Medication Management [address] [address] Duke Betancourt, PharmD [address] [place] [address] documented as of this encounter Goals Goal Patient Goal Type Associated Problems Recent Progress Patient-Stated? Author Blood Pressure < 140/90 Blood Pressure 157/96( 025 1:14 PM EDT) No Duke Betancourt, PharmKomal documented as of this encounter Visit Diagnoses Not on filedocumented in this encounter Additional Health Concerns Assessment Noted Time PHQ-9 Depression Total Score: 0 02/08/20 11:06 AM EDT documented as of this encounter Care Teams Petal Shaper Hand Relationship Specialty Start Date End Date Michelle Zhang MD [address] [place] [address] [phone] PCP - General Family Medicine 04/15/12 Duke Betancourt, PharmD [address] [place] [address] [phone] Pharmacist Pharmacy 03/18/25 documented as of this encounter
--- OUTSIDE RECORDS SUMMARY | 2025-04-13 12:59 | XMS_ITS | Encounter Summary ---
Author Organization [facility], Address [address] [place] [address] Phone Care Team Providers Care Credit Processor Name Role Phone Michelle Zhang MD Primary Care Provider [phone] Encounter Details Date Type Department Care Team (Late st Contact Info) Description 02/03/2023 Documentation Only [facility] [address] [place] [address] Abel Ji DO [address] [facility] [address] [place] [address] Social History Tobacco Use Types [...] Visit [facility] [address] [place] [address] Abel Ji DO [address] [facility] [address] [place] [address] documented as of this encounter Visit Diagnoses Not on filedocumented in this encounter Care Teams Credit Processor Relationship Specialty Start Date End Date Michelle Zhang MD PCP - General 04/20/19 documented as of this encounter
--- OUTSIDE RECORDS SUMMARY | 2025-04-13 12:59 | XMS_ITS | Encounter Summary ---
Author Organization [facility], Address [address] [place] [address] Phone Care Team Providers Care Washerette Machine Operator Name Role Phone Michelle Zhang MD Primary Care Provider [phone] Encounter Details Date Type Department Care Team (Late st Contact Info) Description 12/24/2023 Documentation Only [facility] [address] [place] [address] Zahira Cazares [address] [place] [address] Social History Tobacco Use Types [...] Visit [facility] [address] [place] [address] Abel Ji [address] [place] [address] documented as of this encounter Visit Diagnoses Not on filedocumented in this encounter Care Teams Washerette Machine Operator Relationship Specialty Start Date End Date Michelle Zhang MD PCP - General 04/20/19 documented as of this encounter
--- OUTSIDE RECORDS SUMMARY | 2025-04-13 12:59 | XMS_ITS | Encounter Summary ---
Author Organization [employer] Address [address] [facility] 7t [place] [address] Care Team Providers Care Trimmer Tailer Name Role Phone Michelle Zhang MD Primary Care Provider [phone] Duke Betancourt PharmD Unavailable [phone] Duke Betancourt PharmD Unavailable [phone] Encounter Details Date Type Department Care Team (Late st Contact Info) Description 11/21/2023 Orders Only [facility] [address] [place], [place] [phone] Michelle Zhang MD [address] [place] [address] Bradycardia (Primary Dx) Social History Tobacco Use [...] Description 05/10/2025 10:30 AM EST Office Visit [address] [address] Michelle Zhang MD [address] [place] [address] 06/27/2025 11:30 AM EST Medication Management [address] [address] Duke Betancourt PharmD [address] [place] [address] documented as of this encounter Goals Goal Patient Goal Type Associated Problems Recent Progress Patient-Stated? Author Blood Pressure < 140/90 Blood Pressure 157/96( 025 1:14 PM EDT) No Duke Betancourt PharmD documented as of this encounter Visit Diagnoses Diagnosis Bradycardia- Primary Other specified cardiac dysrhythmias documented in this encounter Additional Health Concerns Assessment Noted Time PHQ-9 Depression Total Score: 0 09/10/19 23 10:48 AM EDT documented as of this encounter Care Teams Trimmer Tailer Relationship Specialty Start Date End Date Michelle Zhang MD [address] [place] [address] PCP - General Family Medicine 04/15/12 Duke Betancourt PharmD [address] [place] [address] Pharmacist Internal Medicine 08/26/22 03/17/25 Duke Betancourt, PharmD [address] [place] [address] Pharmacist Pharmacy 03/18/25 documented as of this encounter
--- OUTSIDE RECORDS SUMMARY | 2025-04-13 12:59 | XMS_ITS | Patient Health Record ---
Author Organization [facility] Address [address] [place] [address] Care Team Providers Care Director Of Corporate Sales Name Role Phone Leatha SUBRAMANIAN, Michelle Primary Care Provider Fausto Knight [phone] Allergies No Known Allergies Reason For Referral No Information Medications Medication SIG (Take, Route, Frequency, Duration) Notes Start Date End Date Status Aspirin Adult Low Strength 81 MG Oral; Duration: 90 Active Dulcolax (colon prep) 5 MG take at 3:00 p.m and 7:00p.m. Orally two tablets twice a day for one day; Duration: 1 day 01/29/2023 Active Ezetimibe 10 MG TAKE 1 TABLET BY SHAUN TH AT BEDTIME Oral; Duration: 90 Active MiraLax (colon prep) 17 GM/SCOOP 1 238Gm bottle mixed with Gatorade or Crystal Light Orally begin at 5:00 p.m. the day before the procedure; Duration: 1 day 01/29/2023 Active metFORMIN HCl 1000 MG Oral; Duration: 90 Active Atorvastatin Calcium 80 MG Oral; Duration: 90 Active Carvedilol 25 MG Oral; Duration: 90 Active hydrALAZINE HCl 10 MG TAKE 1 TABLET BY M OUTH THREE TIMES DAILY IN THE MORNING, AT NOON, AND IN THE EVENING WITH FOOD Oral; Duration: 60 Active Jardiance 25 MG TAKE 1 TABLET BY SHAUN TH EVERY MORNING Diagnosis Unavailable Oral; Duration: 60 Active Mirtazapine 15 MG TAKE 1/2 TABLET BY M OUTH AT BEDTIME Oral; Duration: 60 Active Trulicity 0.75 MG/0.5ML Subcutaneous; Du ration: 28 Active Spironolactone 25 MG Oral; Duration: 30 Active Pantoprazole Sodium 40 MG Oral; Duration: 60 Active Lisinopril 40 MG Oral; Duration: 90 Active Social History Tobacco Use: Social History Observation [...] Problem Status W/U Status Risk Notes Problem Colon cancer screening (269309446) Colon cancer screening (Z12.11) Active confirmed Problem Diverticular disease of colon (790364031) Diverticulosis of large intestine without perforation or abscess without bleeding (K57.30) Active confirmed Problem Long-term current use of antiplatelet drug (703845486341591 ) Long-term use of aspirin therapy (Z79.82) Active confirmed Plan Of Treatment Future Test Test Name Order Date COLONOSCOPY 01/29/2023 Insurance Providers Payer Name Payer Address Payer Phone Subscriber Number Group Number Insured Name Patient Relationship to Insured Coverage Start Date Coverage End Date [facility] [address] Attn Claims [place] [id number] [facility] Self - patient is the insured MEDICARE OF [place] [address] [place] [address] [id number] [facility] Self - patient is the insured Medical (General) History Medical History History ICD Code NIDDM Hyperlipidemia Hypertension Ischemic heart disease- Dr. Interiano Hx of H pylori Stage 3 chronic kidney disease GERD Negative colon[place] [address] 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
--- OUTSIDE RECORDS SUMMARY | 2025-04-13 12:59 | XMS_ITS | Clinical Summary ---
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 [address] Abel Ji DO [address] [facility] [facility] [place] [address] Health Maintenance Due Date Last Done Comments Colorectal Cancer Screening: Annual FOBT 1998 Colorectal Cancer Screening: Colonoscopy 1998 Colorectal Cancer Screening: Sigmoidoscopy 1998 Pneumococcal Vaccine: 50+ Years (2 of 2 - PPSV23, PCV20, or PCV21) 02/02/2015 12/08/2014 Diabetes: Ophthalmology Exam 07/14/2019 Diabetes: Pedal Pulse Checked 07/14/2019 Diabetes: Sensory Foot Exam 07/14/2019 Diabetes: Visual Foot Exam 07/14/2019 Influenza Vaccine (#1) 2025 03/08/2020, 2016 Diabetes: Hemoglobin A1C 05/10/2025 025, 11/02/2024, 07/08/2024, Additional history exists Pneumococcal Vaccine: Peds (0 to 5 Years) [...] PM EST) Hemoglobin A1C 7.1(H) (4.0-5.6) % [facility] Comment: MONITORING: In known diabetic patients, hemoglobin A1c targets should be discussed with health care provider. DIAGNOSTIC USE: The [place] Diabetes Association (ADA) and the World Health [...] Supplement 1 Testing performed or reported by [facility], a Service of [facility], [address] [place] [id number] Guerita Jorge MD, Forestry Pilot [facility]# [id number] Blood specimen (specimen) Venous blood / Unknown 08/15/2022 2:13 PM EST 08/15/2022 2:17 PM EST us Abel Ji DO LAB BLOOD ORDERABLES Final Resu lt [facility] from Last 3 Months or Most Recently Relevant to Health Maintenance Insurance [facility] Dual SNP ([id number]) Care Teams Director Career Relationship Specialty Start Date End Date Michelle Zhang MD PCP - General 04/20/19
--- OUTSIDE RECORDS SUMMARY | 2025-04-13 12:59 | XMS_ITS | Encounter Summary ---
Author Organization [employer] Address [address] [facility] 7t [place] [address] Care Team Providers Care In Classroom Tutor Name Role Phone Michelle Zhang MD Primary Care Provider [phone] Duke Betancourt PharmD Unavailable [phone] Reason for Visit * Reason Onset Date Comments triage 04/08/2025 Encounter Details Date Type Department Care Team ([facility] st Contact Info) Description 04/08/2025 Telephone [facility] [address] [place], [place] [phone] Mel Duran MD [address] [place] [address] triage Social History Tobacco Use Types Packs/Day Years [...] encounter Miscellaneous Notes * Telephone Encounter - Vanessa Medina RN - 04/08/2025 1:16 PM EDT Patient presents to walk in center states he has chest pain was brought back to be triaged. Pt states that he wwas helping neighbor move heavy objects to the second floor when he felt something pull and now when he takes a deep breath he feels like muscle pulling on left side. BP noted to be elevated 157/96 pt reorts he is taking his BP medication daily. Patient denies headache, SOB, left arm pain, or nausea.. documented in this encounter Plan of Treatment Upcoming Encounters Date Type Department Care Team (Late st Contact Info) Description 05/10/2025 10:30 AM EST Office Visit [facility] [address] [place] [address] Michelle Zhang MD [address] [place] [address] 06/27/2025 11:30 AM EST Medication Management [facility] [address] [place] [address] Duke Betancourt, PharmD [address] [place] [address] documented as of this encounter Goals Goal [...] documented as of this encounter Care Teams In Classroom Tutor Relationship Specialty Start Date End Date Michelle Zhang MD [address] [place] [address] PCP - General Family Medicine 04/15/12 Duke Betancourt, PharmD [address] [place] [address] Pharmacist Pharmacy 03/18/25 documented as of this encounter
--- OUTSIDE RECORDS SUMMARY | 2025-04-13 12:59 | XMS_ITS | Encounter Summary ---
Author Organization [facility], Address [address] [place] [address] Phone Care Team Providers Care Test And Research Reactor Operator Name Role Phone Michelle Zhang MD Primary Care Provider [phone] Encounter Details Date Type Department Care Team (Late st Contact Info) Description 02/03/2023 Documentation Only [facility] [place] [facility] [address] [place] [address] Abel Ji DO [address] [facility] [place] [address] Social History Tobacco Use Types [...] Visit [facility] [place] [facility] [address] [place] [address] Abel Ji DO [address] [facility] [place] [address] documented as of this encounter Visit Diagnoses Not on filedocumented in this encounter Care Teams Test And Research Reactor Operator Relationship Specialty Start Date End Date Michelle Zhang MD PCP - General 04/20/19 documented as of this encounter
--- OUTSIDE RECORDS SUMMARY | 2025-04-13 12:59 | XMS_ITS | Encounter Summary ---
Author Organization [employer] Address [address] [place] [address] 7 [place] [address] Care Team Providers Care Solutions Market Consultant Name Role Phone Michelle Zhang MD Primary Care Provider [phone] Duke Betancourt PharmD Unavailable [phone] Reason for Visit * Reason Onset Date Comments Durable Medical Equipment 04/06/2025 Encounter Details Date Type Department Care Team ([facility] st Contact Info) Description 04/06/2025 Telephone [facility] [address] [place], [place] [phone] Michelle Zhang MD [address] [place], [place] [phone] Durable Medical Equipment Social History Tobacco Use [...] encounter Miscellaneous Notes * Telephone Encounter - Trish Gorman - 04/06/2025 3:53 PM EDT Tc from pt friend requesting a DME order for boost flavor vanilla Contact at [phone] documented in this encounter Plan of Treatment Upcoming Encounters Date Type Department Care Team (Late st Contact Info) Description 05/10/2025 10:30 AM EST Office Visit [facility] [address] [place] [phone] Michelle Zhang MD [address] [place] [address] 06/27/2025 11:30 AM EST Medication Management [facility] [address] [place] [address] Duke Betancourt, SanjayD [address] [place] [address] documented as of this encounter Goals Goal [...] documented as of this encounter Care Teams Solutions Market Consultant Relationship Specialty Start Date End Date Michelle Zhang MD [address] [place] [address] PCP - General Family Medicine 04/15/12 Duke Betancourt, PharmD [address] [place] [address] Pharmacist Pharmacy 03/18/25 documented as of this encounter
--- OUTSIDE RECORDS SUMMARY | 2025-04-13 12:59 | XMS_ITS | Encounter Summary ---
Author Organization [facility], Address [address] [place] [address] Phone Care Team Providers Care Vulcanizing Machine Operator Name Role Phone Michelle Zhang MD Primary Care Provider [phone] Reason for Visit * Reason Comments Med Refill Encounter Details Date Type Department Care Team (Late Contact Info) Description 10/28/2022 Refill [facility] [address] [place] [phone] Abel Ji DO [address] [facility] [place] [address] Social History Tobacco Use Types [...] Department Care Team (Late Contact Info) Description 06/30/2025 1:45 PM EST Office Visit [facility], [address] [place] [address] Abel Ji DO [address] [facility] [place] [address] documented as of this encounter Visit Diagnoses Not on filedocumented in this encounter Care Teams Vulcanizing Machine Operator Relationship Specialty Start Date End Date Michelle Zhang MD PCP - General 04/20/19 documented as of this encounter
--- OUTSIDE RECORDS SUMMARY | 2025-04-13 13:00 | XMS_ITS | Encounter Summary ---
Author Organization [employer] Address [address] [place] [address] 7 [place] [address] [address] Care [address] Bailiff Name Role Phone Michelle Zhang MD Primary Care Provider [phone] Duke Betancourt PharmD Unavailable [phone] Duke Betancourt PharmD Unavailable [phone] Reason for Visit * Reason Onset Date Comments Appointment Request 09/03/2022 Encounter Details Date Type Department Care Team (Late st Contact Info) Description 09/03/2022 Telephone [facility] [address] [place], [place] [phone] Michelle Zhang MD [address] [place], [place] [phone] Appointment Request Social History Tobacco Use Types [...] for 09/09/2022 if possible. Please contact pt [phone] documented in this encounter Plan of Treatment Upcoming Encounters Date Type Department Care Team (Late st Contact Info) Description 05/10/2025 10:30 AM EST Office Visit [address] [address] Michelle Zhang MD [address] [place] [address] 06/27/2025 11:30 AM EST Medication Management [address] [address] Duke Betancourt, PharmKomal [address] [place] [address] documented as of this encounter Goals Goal Patient Goal Type Associated Problems Recent Progress Patient-Stated? Author Blood Pressure < 140/90 Blood Pressure 157/96( 025 1:14 PM EDT) No Duke Betancourt, PharmD documented as of this encounter Visit Diagnoses Not on filedocumented in this encounter Care Teams Court Bailiff Relationship Specialty Start Date End Date Michelle Zhang MD [address] [place] [address] PCP - General Family Medicine 04/15/12 Duke Betancourt, PharmD [address] [place] [address] Pharmacist Internal Medicine 08/26/22 03/17/25 Duke Betancourt PharmD [address] [place] [address] Pharmacist Pharmacy 03/18/25 documented as of this encounter
--- OUTSIDE RECORDS SUMMARY | 2025-04-13 13:00 | XMS_ITS | Data Portability ---
Author Organization [facility] Address [address] [place] [phone] Care Team Providers Care Plant Custodian Name Role Phone HIM TERRELL OTHER Assessment Encounter Date Assessment Date Assessment LastModified by Organization Details LastModified Time 11/03/2024 11/03/2024 As noted, we were called to see this patient regarding concerns of Cough, itchy eyes, and runny nose. Evaluation in the field was performed by my panel maker colleague, as noted above, I provided real-time direction and supervision for this visit. Patient states that since yesterday he's been having cough, itchy eyes, and runny nose. He does have a known allergy to pollen. His cough has been dry. His has similar symptoms. COVID is positive. Patient denies any chest pain, shortness of breath, fever. I am unable to prescribe him paxlovid due to drug allergies with Flomax which is currently on. Patient is meeting oxygen saturation. Will prescribed him Flonase for his runny nose and tessalon pearles for his cough. Recommend he follow up with his primary care physician. Impression: COVID Plan: Follow-up PCP Primary care, consider labs Disposition: We discussed the diagnostic uncertainty of home visits and the risk associated with this. In this case, the patient and I felt this to be an acceptable and reasonable amount of risk given the benefit of avoiding an ED visit. We discussed the need to seek care urgently/emerge ntly in the setting of any new or worsening serious symptoms, particularly shortness of breath, chest pain, fever. [email or web address] Not available 11/03/2024 10:50:57 Plan of Treatment Reminders Order Date Submit Date Provider Last Modified By Organization Details Last Modified Time Details Appointments None recorded. Lab rapid SARS CoV 2 Ag, QL IA, respiratory specimen [address] [facility], [address] [place] [address], [id number] 11:55:22 rapid flu (A+B) 2024 025 [facility], [address] [place] [address], [id number] 11:55:39 Referral None recorded. Procedures None recorded. Surgeries None recorded. Imaging None recorded. Medication Orders Flonase Allergy Relief 50 mcg/actuati on nasal spray,suspe nsion 2024 [facility], [address] [place] [address], [id number], 15:07:34 benzonatate 100 mg capsule 2024 [email or web address] Not available 10:28:28 Patient TargetsNo targets recorded. Patient InstructionsNo instructions recorded. Reason for Referral None Reported. Results Created Date Observation Date Name Description Value Unit Range Abnormal Flag Note LastModifiedBy Organization Detail LastModifiedTime 11/04/1911/03/2024 rapid flu (A+B) Flu negati ve Not Available [facility] ed [address] [place] [address], [id number] 11/03/2024 10:50:32 11/04/1911/03/2024 rapid SARS CoV 2 Ag, QL IA, respi rator y speci men rapid SARS CoV 2 Ag, QL IA, respiratory specimen positi ve Not Available [facility] ed [address] [place] [address], [id number] 11/03/2024 10:50:31 Result Notes None recorded. Medical Equipment None Reported. Allergies No known drug allergies Medications Name Sig Start Date Stop Date Status Note LastModified by Organization Details LastModified Time multivitamin tablet TAKE 1 TABLET BY MOUTH EVERY MORNING active Not Available Not Available No t Available neomycin-khalif ymyxin-hydro milli 3.5 mg/mL-10,000 unit/mL-1 % ear solution PLACE 3 DROPS INTO THE AFFECTED EAR(S) FOUR TIMES DAILY active Not Available Not Available Not Available atorvastatin 80 mg tablet TAKE 1 TABLET BY MOUTH AT BEDTIME active Not Available Not Available No t Available carvedilol 25 mg tablet TAKE 1 TABLET BY MOUTH TWICE DAILY IN THE MORNING AND IN THE EVENING active Not Available Not Available No t Available ammonium lactate 12 % lotion APPLY TOPICALLY TO THE AFFECTED AREA(S) EVERY DAY NEEDED FOR DRY SKIN active Not Available Not Available No t Available trazodone 50 mg tablet TAKE 1 TABLET BY MOUTH AT BEDTIME NEEDED FOR SLEEP active Not Available Not Available No t Available amlodipine 5 mg tablet TAKE 1 TABLET BY MOUTH EVERY EVENING active Not Available Not Available No t Available aspirin 81 mg tablet,delay ed release TAKE 1 TABLET BY MOUTH EVERY MORNING active Not Available Not Available No t Available spironolacto ne 25 mg tablet TAKE 1 TABLET BY MOUTH AT BEDTIME active Not Available Not Available No t Available lorazepam 0.5 mg tablet TAKE 1 TABLET BY MOUTH ONCE DAILY NEEDED FOR ANXIETY BEFORE YOUR FLIGHT active Not Available Not Available No t Available tamsulosin 0.4 mg capsule TAKE 1 CAPSULE BY MOUTH AT BEDTIME active Not Available Not Available No t Available hydrocortiso ne-acetic acid 1 %-2 % ear drops INSTILL 4 DROPS IN THE LEFT EAR TWICE DAILY FOR 10 DAYS active Not Available Not Available No t Available Ear Wax Removal Drops 6.5 % PLACE 5 TO 10 DROPS INTO THE AFFECTED EAR(S) TWICE DAILY FOR 4 DAYS active Not Available Not Available N ot Available benzonatate 100 mg capsule Take 1 capsule 3 times a day by oral route as needed for 3 days. 2024 active Not Available Not Available Not Avai lable pantoprazole 40 mg tablet,delay ed release TAKE 1 TABLET BY MOUTH EVERY MORNING active Not Available Not Available No t Available furosemide 20 mg tablet TAKE 1 TABLET BY MOUTH EVERY MORNING active Not Available Not Available No t Available mirtazapine 15 mg tablet TAKE 1/2 TABLET BY MOUTH AT BEDTIME active Not Available Not Available No t Available fluticasone propionate 50 mcg/actuatio n nasal spray,suspen shaniqua INSTILL 1 SPRAY IN EACH NOSTRIL ONCE DAILY FOR 7 DAYS active Not Available Not Available N ot Available valsartan 40 mg tablet TAKE 1 TABLET BY MOUTH EVERY MORNING active Not Available Not Available No t Available ezetimibe 10 mg tablet TAKE 1 TABLET BY MOUTH AT BEDTIME active Not Available Not Available No t Available FreeStyle Lite Strips USE DIRECTED TO TEST BLOOD SUGAR THREE TIMES DAILY active Not Available Not Available Not Available diclofenac 1 % topical gel APPLY 2 GRAMS TOPICALLY TO AFFECTED AREA(S) OF la HIP EVERY DAY active Not Available Not Available No t Available Eye Itch Relief 0.025 % (0.035 %) drops INSTILL 1 DROP AFFECTED EYE(S) TWICE DAILY active Not Available Not Available Not Available Easy Touch 31 gauge x 5/16 needle USE FOUR TIMES DAILY OR DIRECTED active Not Available Not Available No t Available TRUEplus Lancets 33 gauge USE DIRECTED TO TEST BLOOD SUGAR THREE TIMES DAILY active Not Available Not Available Not Available Jardiance 25 mg tablet TAKE 1 TABLET BY MOUTH EVERY MORNING active Not Available Not Available No t Available Trulicity 0.75 mg/0.5 mL subcutaneous pen injector INJECT ONE PEN (=0.75MG) SUBCUTANEOU SLY ONCE A WEEK DIRECTED active Not Available Not Available No t Available Entresto 24 mg-26 mg tablet TAKE 1 TABLET BY MOUTH TWICE DAILY IN THE MORNING AND IN THE EVENING active Not Available Not Available No t Available Praluent Pen 75 mg/mL subcutaneous pen injector INJECT 75 MG SUBCUTANEOU SLY EVERY 14 DAYS active Not Available Not Available No t Available Paxlovid 300 mg (150 mg x 2)-100 mg tablets in a dose pack TAKE 1 TABLET (150 MG) OF NIRMATRELVI R & 1 TABLET (100 MG) OF RITONAVIR BY MOUTH TWICE DAILY FOR 5 DAYS active Not Available Not Available N ot Available Vitals Date Recorded Oxygen saturation Oxygen saturation in Arterial blood by Pulse oximetry Respiratory rate Heart rate Body temperature Systolic And Diastolic Provider Name and Address Organization Details Last Updated DateTime 5 98 % 98 % 18 /min 78 /min 97.7 [degF] 162/102 mm[Hg] Not Available [facility] - production 5 10:14:01 Social History None recorded. Functional Status None recorded. Mental Status None recorded. Family History Nothing Reported. Medical History No medical history recorded. Past Encounters Encounter ID Performer Location Encounter Start Date Encounter Closed Date Diagnosis/Indication Diagnosis SNOMED-CT Code Diagnosis ICD10 Code Diagnosis IMO Codes Diagnosis Note [id number] Zach Melgoza MD Main - [facility] [address] [place] [phone] 11/03/2024 10:13:51 11/03/2024 18:27:20 Acute COVID-19 3763481495 U07.5 [id number] Health Concerns Section Related Observation LastModified by Organization Detai ls LastModified Time None Recorded Concern Status LastModified by Organization Details LastModified Time None Recorded Advance Directives Directive None Recorded Payers Insurance Date Sequence Insurance Name Policy Number Policy Hodges Covered Member ID Hodges Member ID Guarantor Name 11/03/2024 1 [facility] - DOS ON OR AFTER 2022 - DUAL ELIGIBLE - PENITENTIARY OPTIONS AND ONE CARE (MEDICARE REPLACEMENT/AD VANTAGE - HMO) [facility] [id number] [facility] Notes Date Note Type Note Provider Name and Address Organization Details Recorded Time 11/03/2024 text/html ROS as noted in the HPI HPI: No calibration tester needed as this staff writer speaks Malian. Call returned to [facility] via [employer] as this staff writer is remote to triage below. Spoke with spouse Jordana who is on HIPAA. Reports pt seen by Dr. Zhang yesterday. Had home kit for COVID-19 yesterday. Per spouse pt was having cough and itchy watery eyes. Per spouse did home kit again today and positive home kit at home. Denies any fever. Cough is dry. PT also having nasal discharge. Pt spouse wants pt seen. Agrees to [facility] referral as does not want to step out in cold/rainy weather with patient. Pt is isolating in room and using face coverings. ...................... ...................... ...................... ...................... ...................... ...................... ......... [facility] Nurse Triage Notes (Rosa Carrasco): Reason For Request: cough and itchy watery eyes Chief Complaints: Cough, Eye Complaint PMH: Diabetes Mellitus Type 2, Hypertension, Peripheral Artery Disease, Gastroesophageal Reflux Disease (GERD) PMH Reviewed at 11/03/2024 09:11 Allergies Reviewed at 11/03/2024 - 09:11 Comments: Reviewed HPI Automotive Title Clerk Organization Information for August Hernandes Business Legal Name: [employer]. Address: [address] [place] [id number], Trace Evidence Technician: Robert HAAS No.: [id number] Automotive Title Clerk POC Test Results from [facility] Rapid COVID antigen (10:06:01) COVID: + Attachments uploaded as part of this test result can be found under Documents section. Rapid influenza antigen (10::02) Flu: - Attachments uploaded as part of this test result can be found under Documents section. ...................... ...................... ...................... ...................... ...................... ...................... ......... Automotive Title Clerk Note From August Hernandes: Encountered patient seated upright and conscious with family present. Patient reports since last night, a dry cough, runny nose and itchy eyes. Patient denies chest pain, shortness of breath and fevers. POC Covid swab positive, flu negative; [facility] notified. Skin warm, dry and of appropriate color for ethnicity. Head and neck free of trauma and edema. PERRL. -JVD. Breath sounds present, clear and equal bilaterally. Abdomen soft, non-tender and non-distended. Extremities free of trauma and edema. [facility] contacted: reports patient is not a candidate for Paxlovid due to current medication regimen but will send prescriptions for supportive care to patients pharmacy of choice. Patient additionally advised to monitor for symptoms such as chest pain, shortness of breath and fevers and to seek further medical attention including 911 if he were to develop them. Patient verbalizes understanding of the plan and states he is comfortable with remaining home today. [facility] Lab Orders: rapid SARS CoV 2 Ag, QL IA, respiratory specimen: Performed rapid flu (A+B): Performed ...................... ...................... ...................... ...................... ...................... ...................... ......... [facility] Consulted: Zach Melgoza ...................... ...................... ...................... ...................... ...................... ...................... ......... Disposition: Fulfilled Zach Melgoza MD [address] [place] [address],[address] [facility], [place], [address], GIL LEGER 11/03/2024 11:27:09
--- OUTSIDE RECORDS SUMMARY | 2025-04-13 13:00 | XMS_ITS | Encounter Summary ---
Author Organization [employer] Address [address] [place] [address] 7 [place] [address] Care Team Providers Care Division Head Name Role Phone Michelle Zhang MD Primary Care Provider Duke Betancourt PharmD Unavailable [phone] Duke Betancourt PharmD Unavailable [phone] Reason for Visit * Reason Onset Date Comments Referral 05/17/2022 Encounter Details Date Type Department Care Team (Late st Contact Info) Description 05/17/2022 Telephone [facility] [address] [place], [place] [phone] Michelle Zhang MD [address] [place], [place] [phone] Referral Social History Tobacco Use Types Packs/Day [...] it after since he will be in [place] for the holidays. Please contact pt at [phone] * Telephone Encounter - Raquel Jennings RN - 05/21/2022 12:13 PM EST Pt's EC came in to ask ab out drops, let FD know about messages in chart see today's encounter. * Telephone Encounter - Raquel Jennings RN - 05/21/2022 11:18 AM EST Telephone call to pt in regards to asking if his press cleaner can rx the drops. Call not answered, left vm to call back nurses when able. * Telephone Encounter - Wendy Motta RN - 05/20/2022 12:32 PM EST Pt's spouse walked in requesting eye drops for dry eye. Queued eye drops that might be covered by insurance per [facility] (many not covered). Please review and advise. * Telephone Encounter - Arti Pruitt RN - 05/17/2022 10:43 AM EST LVM to return call to [facility] triage line. * Telephone Encounter - Mel Irizarry - 05/17/2022 8:54 AM EST Symptom: Earache Outcome: Schedule a same-day appointment or talk to a nurse or provider today Reason: No high acuity concerns reported by caller The caller accepted this outcome Tc from Jordana (friend) stating pt has left eye dryness and ear pain. *Jordana Murrieta is on hippa Please contact in Gambian at [phone] documented in this encounter Plan of Treatment Upcoming Encounters Date Type Department Care Team (Late st Contact Info) Description 05/10/2025 10:30 AM EST Office Visit [address] [address] Michelle Zhang MD [address] [place] [address] 06/27/2025 11:30 AM EST Medication Management [address] [address] Duke Betancourt, Wolf [address] [place] [address] documented as of this encounter Visit Diagnoses Not on filedocumented in this encounter Care Teams Division Head Relationship Specialty Start Date End Date Michelle Zhang MD [address] [place] [phone] PCP - General Family Medicine 04/15/12 Duke Betancourt, Wolf [address] [place] [address] Pharmacist Internal Medicine 08/26/22 03/17/25 Duke Betancourt, SanjayD [address] [place] [address] Pharmacist Pharmacy 03/18/25 documented as of this encounter
--- OUTSIDE RECORDS SUMMARY | 2025-04-13 13:00 | XMS_ITS | Encounter Summary ---
Author Organization [employer] Address [address] [place] [address] 7 [place] [address] Care Team Providers Care Internet Sales Associate Name Role Phone Michelle Zhang MD Primary Care Provider [phone] Duke Betancourt PharmD Unavailable [phone] Duke Betancourt PharmD Unavailable [phone] Reason for Referral * Consultation (Routine) - Closed Specialty Diagnoses / Procedures Referred By Astrid lal Referred To Contact Vascular Surgery Diagnoses PAD (peripheral artery disease) Michelle Zhang MD [address] [place] [address] Phone: tel: fax: [facility] Referral ID Status Reason Start Date Expiration Date V isits Requested Visits Authorized [id number] Closed Specialty Services Required 07/15/2024 07/15/2025 1 1 Encounter Details Date Type Department Care Team (Late st Contact Info) Description 07/15/2024 Orders Only [facility] [address] [place] [address] Michelle Zhang MD [address] [place] [address] PAD (peripheral artery disease) (CMS/HCC) (Primary Dx) Social History Tobacco Use Types [...] Office Visit [facility] [address] [place] [address] Michelle Zhang MD [address] [place] [address] 06/27/2025 11:30 AM EST Medication Management [facility] [address] [place] [address] Duke Betancourt, PharmD [address] [place] [address] Scheduled Referrals Name Type Priority Associated Diagnoses Orde r Schedule Referral to Vascular Surgery Outpatient Referral Routine PAD (peripheral artery disease) ([facility]) Expected: 07/15/2024 (Approximate), Expires: 07/15/2025 documented as [...] PM EST Narrative 08/13/2024 3:41 PM EST [place] [address] XRay Report Signed Patient: Johny Mansfield MR#: [id number] : 1950 Acct:[id number] Age/Sex: 73 / M ADM Date: 08/13/24 Loc: .ED Attending Dr: Ordering Physician: Zuleyma Ann Date of Service: 08/13/24 Procedure(s): XR hand wrist LT Accession Number(s): [id number] cc: Zuleyma Ann; Mihcelle Zhang MD EXAMINATION: XR HAND/WRIST, LEFT CLINICAL [...] Ga Hurt MD 08/13/2024 03:38 PM EST RP Dictated By: Ga Hurt MD Signed By: <Electronically signed by Ga Hurt MD in OV> 08/13/24 1538 DD/ 1440 TD/TT: 08/13/24 1505 Gas Compressor Operator: Procedure Note Donotuseinterpreter, Image - 08/13/[address] [address] XRay Report Signed Patient: Johny MansfieldMR#: [id number] : 1950Acct:[id number] Age/Sex: 73 / MADM Date: 08/13/24 Loc: .ED Attending Dr: Ordering Physician: Zuleyma Ann Date of Service: 08/13/24 Procedure(s): XR hand wrist LT Accession Number(s): [id number] cc: Zuleyma Ann; Michelle Zhang MD EXAMINATION: [...] Ga Hurt MD 08/13/2024 03:38 PM EST RP Dictated By: Ga Hurt MD Signed By: <Electronically signed by aG Hurt MD in OV> 08/13/24 1538 DD/ 1440 TD/TT: 08/13/24 1505 Gas Compressor Operator: us [facility] External Provider IMG XR PROCEDURES Final Result * XR Knee 3 Views Right (08/13/2024 2:40 PM EST) Anatomical Region Laterality Modality Lower Extremities, Knee Right Radiogra phic Imaging 08/13/2024 2:40 PM EST Narrative 08/13/2024 3:38 PM EST [address] [address] XRay Report Signed Patient: Johny Mansfield MR#: [id number] : 1950 Acct:[id number] Age/Sex: 73 / M ADM Date: 08/13/24 Loc: HO.ED Attending Dr: Ordering Physician: Zuleyma Ann Date of Service: 08/13/24 Procedure(s): XR knee RT 3V Accession Number(s): [id number] cc: Zuleyma Ann; Michelle Zhang MD EXAMINATION: [...] 08/13/24 1535 DD/ 1440 TD/TT: 08/13/24 1505 Gas Compressor Operator: Procedure Note Donotlizinterpreter, Image - 08/13/[address] [address] XRay Report Signed Patient: Johny MansfieldMR#: [id number] : 1950Acct:[id number] Age/Sex: 73 / MADM Date: 08/13/24 Loc: HO.ED Attending Dr: Ordering Physician: Zuleyma Ann Date of Service: 08/13/24 Procedure(s): XR knee RT 3V Accession Number(s): [id number] cc: Zuleyma Ann; Michelle Zhang MD EXAMINATION: [...] by: Ga Hurt MD 08/13/2024 03:35 PM [facility] Dictated By: Ga Hurt MD Signed By: <Electronically signed by Ga Hurt MD in OV> 08/13/24 1535 DD/ 1440 TD/TT: 08/13/24 1505 Gas Compressor Operator: [facility] External Provider IMG XR PROCEDURES Final Result documented in this encounter Visit Diagnoses Diagnosis PAD (peripheral artery disease)- Primary Unspecified peripheral vascular disease documented in this encounter Additional Health Concerns Assessment Noted Time PHQ-9 Depression Total Score: 0 03/01/20 24 10:05 AM EDT documented as of this encounter Care Teams Internet Sales Associate Relationship Specialty Start Date End Date Michelle Zhang MD [address] [place] [address] PCP - General Family Medicine 04/15/12 Duke Betancourt PharmD [address] [place] [address] Pharmacist Internal Medicine 08/26/22 03/17/25 Duke Betancourt PharmD [address] [place] [address] Pharmacist Pharmacy 03/18/25 documented as of this encounter
--- OUTSIDE RECORDS SUMMARY | 2025-04-13 13:00 | XMS_ITS | Encounter Summary ---
Author Organization [employer] Address [address] [place] [address] 7 [place] [address] Care Team Providers Care Pipe Straightener Name Role Phone Michelle Zhang MD Primary Care Provider [phone] Duke Betancourt PharmD Unavailable [phone] Duke Betancourt PharmD Unavailable [phone] Reason for Visit * Reason Onset Date Comments Reschedule 05/20/2023 Encounter Details Date Type Department Care Team (Late st Contact Info) Description 05/20/2023 Telephone [facility] [address] [place], [place] [phone] Michelle Zhang MD [address] [place], [place] [phone] Reschedule Social History Tobacco Use Types Packs/Day [...] - 05/20/2023 2:08 PM EST Tc from [place] requesting r/s HDF appt, pt is getting [facility] today [facility] documented in this encounter Plan of Treatment Upcoming Encounters Date Type Department Care Team (Late st Contact Info) Description 05/10/2025 10:30 AM EST Office Visit [facility] [address] [place] [address] Michelle Zhang MD [address] [place] [address] 06/27/2025 11:30 AM EST Medication Management [facility] [address] [place] [address] Duke Betancourt, PharmD [address] [place] [address] documented as of this encounter Goals Goal [...] documented as of this encounter Care Teams Pipe Straightener Relationship Specialty Start Date End Date Michelle Zhang MD [address] [place] [address] PCP - General Family Medicine 04/15/12 Duke Betancourt, SanjayD [address] [place] [address] Pharmacist Internal Medicine 08/26/22 03/17/25 Duke Betancourt, Wolf [address] [place] [address] Pharmacist Pharmacy 03/18/25 documented as of this encounter
--- OUTSIDE RECORDS SUMMARY | 2025-04-13 13:00 | XMS_ITS | Encounter Summary ---
Author Organization [employer] Address [address] [place] [address] 7 [place] [address] Care Team Providers Care Machine Featheredger And Reducer Name Role Phone Michelle Zhang MD Primary Care Provider [phone] Duke Betancourt PharmD Unavailable [phone] Duke Betancourt PharmD Unavailable [phone] Reason for Visit * Reason Onset Date Comments Durable Medical Equipment 03/28/2023 Encounter Details Date Type Department Care Team (Late st Contact Info) Description 03/28/2023 Telephone [facility] [address] [place], [place] [phone] Michelle Zhang MD [address] [place], [place] [phone] Durable Medical Equipment Social History Tobacco Use [...] Description 05/10/2025 10:30 AM EST Office Visit [facility] [address] [place] [phone] Michelle Zhang MD [address] [place] [address] 06/27/2025 11:30 AM EST Medication Management [facility] [address] [place] [address] Duke Betancourt, PharmD [address] [place] [address] documented as of this encounter Goals Goal [...] documented as of this encounter Care Teams Machine Featheredger And Reducer Relationship Specialty Start Date End Date Michelle Zhang MD [address] [place] [address] PCP - General Family Medicine 04/15/12 Duke Betancourt, PharmD [address] [place] [address] Pharmacist Internal Medicine 08/26/22 03/17/25 Duke Betancourt, SanjayD [address] [place] [address] Pharmacist Pharmacy 03/18/25 documented as of this encounter
--- OUTSIDE RECORDS SUMMARY | 2025-04-13 13:00 | XMS_ITS | Encounter Summary ---
Author Organization [employer] Address [address] [place] [address] [place] [address] Care Team Providers Care Office Asst Name Role Phone Michelle Zhang MD Primary Care Provider [phone] Duke Betancourt PharmD Unavailable [phone] Duke Betancourt PharmD Unavailable [phone] Encounter Details Date Type Department Care Team ([facility] Contact Info) Description 11/20/2022 [facility] Proficiency Information Management [address] [place] [address] Michelle Zhang MD [address] [place] [address] Social History Tobacco Use Types Packs/Day Years [...] Upcoming Encounters Date Type Department Care Team ([facility] Contact Info) Description 05/10/2025 10:30 AM EST Office Visit [facility] [address] [facility] [place] [address] [place] [address] 06/27/2025 11:30 AM EST Medication Management [facility] [address] [facility] [place] [address] Duke Betancourt, PharmKomal [place] [facility] [place]és [place] [address] documented as of this encounter Goals Goal [...] documented as of this encounter Care Teams Office Asst Relationship Specialty Start Date End Date Michelle Zhang MD [facility] [place] [address] PCP - General Family Medicine 04/15/12 Duke Betancourt, PharmD [address] [facility] [place] [address] Pharmacist Internal Medicine 08/26/22 03/17/25 Duke Betancourt PharmD [address] [place], [place] [address]gerry [place] [address] Pharmacist Pharmacy 03/18/25 documented as of this encounter
--- OUTSIDE RECORDS SUMMARY | 2025-04-13 13:00 | XMS_ITS | Encounter Summary ---
Author Organization [facility], Address [address] [place] [address] Phone Care Team Providers Care Greeting Card Maker Name Role Phone Michelle Zhang MD Primary Care Provider [phone] Encounter Details Date Type Department Care Team (Late st Contact Info) Description 01/04/2025 Documentation Only [facility] [address] [place] [address] [place], [place] [address] [place] [address] Social History Tobacco Use Types [...] Visit [facility] [address] [place] [address] Abel Ji DO [address] [place] [address] [place] [address] documented as of this encounter Visit Diagnoses Not on filedocumented in this encounter Care Teams Greeting Card Maker Relationship Specialty Start Date End Date Michelle Zhang MD PCP - General 04/20/19 documented as of this encounter
--- OUTSIDE RECORDS SUMMARY | 2025-04-13 13:00 | XMS_ITS | Encounter Summary ---
Author Organization [employer] Address [address] [place] [address] 7 [place] [address] Care Team Providers Care Fresh Foods Cake Decorator Name Role Phone Michelle Zhang MD Primary Care Provider [phone] Duke Betancourt PharmD Unavailable [phone] Duke Betancourt PharmD Unavailable [phone] Reason for Visit * Reason Comments Med Refill Encounter Details Date Type Department Care Team (Late Contact Info) Description 02/16/2023 Refill [facility] [address] [place] [address] Michelle Zhang MD [address] [place] [phone] Social History Tobacco Use Types Packs/Day Years [...] Department Care Team (Late Contact Info) Description 05/10/2025 10:30 AM EST Office Visit [facility] [address] [place] [phone] Michelle Zhang MD 230 [facility] [place] [address] 06/27/2025 11:30 AM EST Medication Management [facility] 230 [facility] [place] [address] Duke Betancourt, Wolf [address] [place] [address] documented as of this encounter Goals Goal [...] documented as of this encounter Care Teams Fresh Foods Cake Decorator Relationship Specialty Start Date End Date Michelle Zhang MD [address] [place] [address] PCP - General Family Medicine 04/15/12 Duke Betancourt, PharmD [address] [place] [address] Pharmacist Internal Medicine 08/26/22 03/17/25 Duke Betancourt PharmD [address] [place] [address] Pharmacist Pharmacy 03/18/25 documented as of this encounter
--- OUTSIDE RECORDS SUMMARY | 2025-04-13 13:00 | XMS_ITS | Clinical Summary ---
Author Organization [employer] Address [address] [place] [address] [address] [place] [address] Care Team Providers Care Surtass Analyst Name Role Phone Michelle Zhang MD Primary Care Provider [phone] Duke Betancourt PharmD Unavailable [phone] Allergies No known active allergies Medications Nutritional [...] a, without long-term current use of insulin (HCC) 1 kit 3 times daily. Check blood sugar three times daily 1 kit 023 Active Blood Pressure Monitor kit Check blood pressure once daily and as needed 1 kit 023 Active Aspirin Low Dose 81 MG EC tabletIndicatio ns:Ischemic heart disease TAKE 1 TABLET BY MOUTH EVERY MORNING 90 tablet 3 024 Active TRUEplus Lancets 33G misc TEST BLOOD SUGAR THREE TIMES DAILY 100 each 11 024 Active Entresto 24-26 MG tablet TAKE 1 TABLET BY MOUTH TWICE DAILY IN THE MORNING AND IN THE EVENING 024 Active tamsulosin (Flomax) 0.4 MG 24 hr capsule Take 1 capsule (0.4 mg) by mouth at bedtime. 90 capsule 3 025 Active ammonium lactate (Lac-Hydrin) 12 % lotion Apply topically if needed for dry skin. 225 g 3 025 Active amLODIPine (Norvasc) 5 MG tabletIndicatio ns:Primary hypertension TAKE 1 TABLET BY MOUTH EVERY EVENING 90 tablet 3 025 Active Trulicity 0.75 MG/0.5ML solution auto-injector INJECT ONE PEN (=0.75MG) SUBCUTANEOUSLY ONCE A WEEK DIRECTED 2 mL 11 025 Active spironolactone (Aldactone) 25 MG tablet TAKE 1 TABLET BY MOUTH AT BEDTIME 90 tablet 3 025 Active Multiple Vitamin (Multivitamin) tablet TAKE 1 TABLET BY MOUTH EVERY MORNING 90 tablet 3 025 Active Ketotifen Fumarate 0.035 % solution Administer 1 drop into affected eye(s) 2 times daily. 5 mL 1 025 Active pantoprazole (ProtoNix) 40 MG EC tabletIndicatio ns:Chronic GERD TAKE 1 TABLET BY MOUTH EVERY MORNING 90 tablet 3 025 Active ezetimibe (Zetia) 10 MG tablet TAKE 1 TABLET BY MOUTH AT BEDTIME 90 tablet 3 025 Active Jardiance 25 MGIndications:T ype 2 diabetes mellitus with other specified complication, unspecified whether fdc insulin use (HCC) TAKE 1 TABLET BY MOUTH EVERY MORNING 90 tablet 3 025 Active Continuous Glucose Deck Builder (FreeStyle Lilliam 3 [place]) deviceIndicatio ns:Type 2 diabetes mellitus with stage 3a chronic kidney disease, without long-term current use of insulin (HCC) 1 each Once per day. Use as directed for CGM 1 each 025 Active Continuous Glucose Sensor (FreeStyle Lilliam 3 Plus Sensor) miscIndications :Type 2 diabetes mellitus with stage 3a chronic kidney disease, without long-term current use of insulin (HCC) 1 each every 15 days. Apply 1 every 15 days as directed for CGM 2 each 025 Active glucose blood (FreeStyle Precision Nicholas Test) test strip Use to test blood sugar 3 times daily in case of CGM failure or extremes of BG 100 each 11 2025 Active Repatha SureClick 140 MG/ML injection INJECT 1 PEN (140 MG) SUBCUTANEOUSLY EVERY 14 DAYS Active Diclofenac Sodium 1 % gel Apply 1 inch topically if needed in the morning and at bedtime (pain). 60 g 2024 Active acetaminophen (Tylenol Extra Strength) 500 MG tablet Take 1 tablet (500 mg) by mouth every 6 (six) hours if needed for mild pain. 60 tablet 2024 Active alirocumab (Praluent) 75 MG/ML injection Inject 1 mL (75 mg) under the skin every 14 (fourteen) days. 2.24 mL 11 2024 Discontinued(M ed list cleanup (will not trigger notification to Pharmacy)) docusate sodium (Colace) 100 MG capsuleIndicati ons:Constipatio n, unspecified constipation type TAKE 1 CAPSULE BY MOUTH TWICE DAILY IN THE MORNING AND IN THE EVENING NEEDED 180 capsule 2024 Discontinued(M ed list cleanup (will not trigger notification to Pharmacy)) furosemide (Lasix) 20 MG tablet Take 20 mg by mouth Once per day. 2024 Discontinued(M ed list cleanup (will not trigger notification to Pharmacy)) lidocaine (Lidoderm) 5 % patchIndication s:Pain of right hip Apply 1 patch topically Once per day. Remove & discard patch within 12 hours or as directed by . 30 patch 1 2024 Discontinued(M ed list cleanup (will not trigger notification to Pharmacy)) Diclofenac Sodium 1 % gelIndications: Pain of right hip Apply 1 Application topically if needed each day (hip pain). 50 g 2024 Discontinued(M ed list cleanup (will not trigger notification to Pharmacy)) aspirin (Aspirin Adult Low Strength) 81 MG EC tabletIndicatio ns:Ischemic heart disease Take 1 tablet (81 mg) by mouth in the morning. 90 tablet 3 2024 Discontinued(M ed list cleanup (will not trigger notification to Pharmacy)) FREESTYLE LITE test stripIndication s:Type 2 diabetes mellitus with stage 3a chronic kidney disease, without long-term current use of insulin (HCC) USE DIRECTED TO TEST BLOOD SUGAR THREE TIMES DAILY 100 each 11 025 2024 Discontinued(M ed list cleanup (will not trigger notification to Pharmacy)) Neomycin-Polymy melly-HC 1 % solution Administer 3 drops into affected ear(s) 4 times daily. 10 mL 025 2024 Discontinued(M ed list cleanup (will not trigger notification to Pharmacy)) insulin degludec (Tresiba FlexTouch) 100 UNIT/ML injection Administer 10 units subcutaneously daily. 3 mL 12 025 2024 Discontinued(M ed list cleanup (will not trigger notification to Pharmacy)) pen needle 32G x 4 mm misc Use as instructed 100 each 11 025 2024 Discontinued(M ed list cleanup (will not trigger notification to Pharmacy)) Active Problems Problem Noted Date Diagnosed Date Pectoralis muscle strain 04/08/2025 Assessment & Plan (04/08/2025 2:09 PM EDT): He has atypical chest pain. Recommended to avoid lifting objects or any exertion for least 1 week Recommended heat to affected area + diclofenac gel + Tylenol as needed Re consult as needed exertional chest pain, DUNN or dizziness Nocturia 02/06/2025 Assessment & Plan (02/06/2025 6:55 PM EDT): - continue tamsulosin PAD (peripheral artery disease) 09/02/2024 Assessment & Plan (09/05/2024 4:44 PM EDT): - seen by Dr. Quispe, vascular specialist at [facility] in Jul 2023 - 06/10/24 AMOL: There is hemodynamically significant arterial disease within the mid to distal bilateral superficial femoral arteries and the bilateral infrapopliteal arteries, in particular the dorsalis pedis arteries bilaterally. - Dr. Quispe recommended conservative management for stable claudication. Patient also has diabetic neuropathy. Pain in both lower extremities 03/07/2024 Assessment & Plan (09/05/2024 4:46 PM EDT): Right > left Worse with standing and walking DDx: claudication / PAD or neuropathy, venous insufficiency, or musculoskeletal etiology AMOL in May 2024 showed significant bilateral femoral artery stenosis Seen by Dr. Quispe in Jul 2024, conservative management for stable claudication Assessment & Plan (03/07/2024 7:47 AM EDT): [...] (11/18/2023 12:34 PM EDT): - will request deicer repairer electric for Holter monitor - patient seems to have bradycardia with heart rate in 40s at home Ingrown toenail of both feet 09/05/2023 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 09/05/2023 Assessment & Plan (09/03/2024 8:00 PM EDT): - A1c 7.4% on 09/02/24 - will prescribe diabetic footwear - will refer to dispensing optician for further evaluation of ingrown toenails Assessment & Plan (09/05/2023 9:59 AM EDT): - will prescribe diabetic footwear - will refer to dispensing optician for further evaluation of ingrown toenails Constipation 09/04/2023 Assessment & Plan (09/04/2023 10:02 PM EDT): - Continue Colace 100 mg prn. Periodontal disease 08/21/2023 Osteoarthritis of multiple joints 08/18/2023 Long-term use of aspirin therapy 04/04/2023 04/04/2023 Heart failure with reduced ejection fraction Assessment & Plan (02/06/2025 6:53 PM EDT): -quadruple CABG for 3-vessel CAD [...] with statin, ezetimibe, and Praluent - Continue empagliflozin for diabetes mellitus, CKD, and heart failure - Treatment Hx: lisinopril was discontinued due to PRITI in May 2023 - Continue working on lifestyle modifications - Follow up with deicer repairer electric as scheduled - Continue working on risk factor management Assessment & Plan (11/02/2024 9:03 AM EDT): -quadruple CABG for 3-vessel CAD [...] with statin, ezetimibe, and Praluent - Continue empagliflozin for diabetes mellitus, CKD, and heart failure - Treatment Hx: lisinopril was discontinued due to PRITI in May 2023 - Continue working on lifestyle modifications - Follow up with deicer repairer electric as scheduled - Continue working on risk factor management Assessment & Plan (09/05/2024 4:45 PM EDT): -quadruple CABG for 3-vessel CAD [...] with statin, ezetimibe, and Praluent - Continue empagliflozin for diabetes mellitus, CKD, and heart failure - Treatment Hx: lisinopril was discontinued due to PRITI in May 2023 - Continue working on lifestyle modifications - Follow up with deicer repairer electric as scheduled - Continue working on risk factor management Assessment & Plan (07/11/2024 1:06 PM EST): [...] on lifestyle modifications - Follow up with deicer repairer electric as scheduled - Continue working on risk [...] on lifestyle modifications - Follow up with deicer repairer electric as scheduled - Continue working on risk [...] on lifestyle modifications - Follow up with deicer repairer electric as scheduled - Continue working on risk [...] on lifestyle modifications - Follow up with deicer repairer electric as scheduled - Continue working on risk factor management Assessment & Plan (09/05/2023 9:47 AM EDT): >>ASSESSMENT AND PLAN FOR CHRONIC HEART FAILURE WITH PRESERVED EJECTION FRACTION (CMS/HCC) WRITTEN ON 09/16/2022 8:39 AM BY MICHELLE ZHANG MD - completed cardiac rehabilitation - TTE: [...] WRITTEN ON 11/17/2022 4:26 PM BY MICHELLE ZHANG MD - completed cardiac rehabilitation - TTE: [...] WRITTEN ON 02/22/2023 4:43 AM BY MICHELLE ZHANG MD - completed cardiac rehabilitation - TTE: 02/08/19 Echo LVEF 40-45%, mild-mod LV systolic dysfunction, mild mitral regurgitation - Most recent stress echo on 02/14/22: LVEF 55%, 47% with stress. No ischemia. - Continue Coreg, lisinopril and spironolactone. - Continue ASA. - Continue Jardiance for DM - Follow up with deicer repairer electric as scheduled - Continue working on risk [...] diuresed with IV Lasix. Then readmitted to [facility] days later for COVID, CHF, PRITI. On [...] had been as high as 2.0 at [facility]. Seen by Cardiology 06/02/2023 who stated that [...] [facility] -Intravitreal Avastin Assessment & Plan (08/13/2022 5:32 [...] AM EST): -Following with Dr. Ji Stage 3a chronic kidney disease ([facility]) 2021 Assessment & Plan (02/06/2025 6:54 PM EDT): - Missile Mechanic: Dr. Ji - continue following with administrative tech - continue ARB and SGLT2i - avoid nephrotoxins - renal dose medication Assessment & Plan (11/02/2024 9:04 AM EDT): - Missile Mechanic: Dr. Ji - continue following with administrative tech - continue ARB and SGLT2i - avoid nephrotoxins - renal dose medication Assessment & Plan (09/03/2024 7:47 PM EDT): - Missile Mechanic: Dr. Ji - continue following with administrative tech - continue ARB and SGLT2i - avoid nephrotoxins - renal dose medication Assessment & Plan (07/11/2024 1:07 PM EST): - Missile Mechanic: Dr. Ji - sohail following with administrative tech - continue ARB and SGLT2i - avoid nephrotoxins - renal dose medication Assessment & Plan (03/01/2024 10:46 AM EDT): - Missile Mechanic: Dr. Ji - sohail following with administrative tech - avoid nephrotoxins - renal dose medication Assessment & Plan (11/18/2023 11:34 AM EDT): - Missile Mechanic: Dr. Ji - sohail following with administrative tech - avoid nephrotoxins - renal dose medication Assessment & Plan (09/04/2023 9:59 PM EDT): - Missile Mechanic: Dr. Ji - sohail following with administrative tech - avoid nephrotoxins - renal dose medication Assessment & Plan (02/22/2023 4:46 AM EDT): - Missile Mechanic: Dr. Ji - sohail following with administrative tech - avoid nephrotoxins - renal dose medication Assessment & Plan (11/17/2022 4:27 PM EDT): - Missile Mechanic: Dr. Ji - sohail following with administrative tech - avoid nephrotoxins - renal dose medication [...] Ischemic heart disease 12/24/2016 Assessment & Plan (02/06/2025 6:52 PM EDT): -Following with Dr. Interiano at [facility], last seen in November 2024 -quadruple CABG for 3-vessel CAD by Dr. Uriarte on 01/06/17. - TTE: 05/19/23 mild to moderate LVH. Severely dilated LV. EF 35%. Severe global hypokinesis without regional wall motion abnormality. Grade III diastolic dysfunction. Moderately dilated RV and systolic function is severely reduced. Severely dilated LA. Moderate mitral and mild tricuspid regurgitation. -transthoracic echocardiogram: 02/20/2024 Left ventricular systolic function is moderately decreased. Calculated ejection fraction with 37%. The basal inferior, mid inferior, and basal inferolateral segments akinetic. No obviously valvular pathology. - Continue Carvedilol, furosemide, spironolactone, Entresto and ASA. - Continue empagliflozin for diabetes mellitus - Treatment Hx: lisinopril was discontinued in May 2023 due to PRITI. Vaksaran was changed to Enntresto in Feb 2024 - Follow-up with deicer repairer electric as scheduled Assessment & Plan (11/02/2024 9:03 AM EDT): -Following with Dr. Interiano at [...] Enntresto in Feb 2024 - Follow-up with deicer repairer electric as scheduled Assessment & Plan (09/03/2024 7:48 PM EDT): -Following with Dr. Interiano at [...] Enntresto in Feb 2024 - Follow-up with deicer repairer electric as scheduled Assessment & Plan (07/11/2024 1:04 PM EST): [...] Enntresto in Feb 2024 - Follow-up with deicer repairer electric as scheduled Assessment & Plan (03/01/2024 10:44 [...] 2023 due to PRITI. - Follow-up with deicer repairer electric as scheduled Assessment & Plan (11/18/2023 12:31 [...] 2023 due to PRITI. - Follow-up with deicer repairer electric as scheduled Assessment & Plan (09/05/2023 9:52 [...] 2023 due to PRITI. - Follow-up with deicer repairer electric as scheduled Assessment & Plan (02/22/2023 4:42 [...] 2 diabetes mellitus 09/19/2015 Assessment & Plan (02/15/2025 8:54 AM EDT): - A1C 9.0% on 02/07/25, increase from 7.5% on 11/02/24 - Pt has worked with CDE RN and stucco plasterer in the past - Continue working on lifestyle modifications, especially diet. - Continue diligent SMBG as instructed. Patient requests CGM. Patient prefers to start insulin therapy and have CGM. - Start basal insulin. 10 units daily. - Continue empagliflozin 25 mg daily - Continue dulaglutide (Trulicity) 0.75 mg weekly, started since Mar 2021. If he develops hypoglycemia after starting insulin, consider discontinuing or lower dose of SGLT2i. 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 - Last foot exam: Feb 2024 - Last microalbumin test: 09/10/23 UACR 319 - Last lipid panel: 11/05/23 - Dental exam: up to date - Immunizations: up to date - Ordered labs 09/02/24 Assessment & Plan (11/02/2024 11:45 AM EDT): - A1C 7.5% on 11/02/24, trending upward since Feb 2024 - Pt has worked with CDE RN and stucco plasterer in the past - Continue working on lifestyle modifications, especially diet. - Continue diligent SMBG as instructed. - Continue empagliflozin 25 mg daily - Continue dulaglutide (Trulicity) 0.75 mg weekly, started since Mar 2021 [...] to date - Immunizations: up to date - Ordered labs 09/02/24 Assessment & Plan (09/05/2024 4:47 PM EDT): - A1C 7.4% on 07/08/24 slightly increased from 7.3% on 03/01/24, personal best 6.7% on 09/04/23 - Pt has worked with CDE RN and stucco plasterer in the past - Continue working on lifestyle modifications, especially diet. - Continue diligent SMBG as instructed. - Continue empagliflozin 25 mg daily - Continue dulaglutide (Trulicity) 0.75 mg weekly, started since Mar 2021 [...] to date - Immunizations: up to date - Ordered labs 09/02/24 Assessment & Plan (07/11/2024 1:08 PM EST): - A1C 7.4% slightly increased from 7.3% on 03/01/24, personal best 6.7% on 09/04/23 - Pt has worked with CDE RN and stucco plasterer in the past - Continue working on [...] Pt has worked with CDE RN and stucco plasterer in the past - Continue working on [...] Pt has worked with CDE RN and stucco plasterer in the past - Continue working on [...] Pt has worked with CDE RN and stucco plasterer in the past - Continue working on [...] Pt has worked with CDE RN and stucco plasterer in the past Continue working on lifestyle [...] Pt has worked with CDE RN and stucco plasterer in the past - Continue working on [...] Pt has worked with CDE RN and stucco plasterer in the past - Continue working on [...] Pt has worked with CDE RN and stucco plasterer in the past - Continue working on [...] Pt has worked with CDE RN and stucco plasterer in the past - Continue working on [...] to date Dyslipidemia 08/17/2012 Assessment & Plan (02/06/2025 6:53 PM EDT): -Last lipid panel: 11/05/23 -Current Medications: Praluent, atorvastatin 80 mg at bedtime; Zetia 10 mg daily -Continue working on lifestyle modifications continue current medications and periodic lab - Ordered Lipid Panel with Reflex to Direct LDL 09/02/24 Assessment & Plan (11/02/2024 9:03 AM EDT): -Last lipid panel: 11/05/23 -Current Medications: Praluent, atorvastatin 80 mg at bedtime; Zetia 10 mg daily -Continue working on lifestyle modifications continue current medications and periodic lab - Ordered Lipid Panel with Reflex to Direct LDL 09/02/24 Assessment & Plan (09/03/2024 8:01 PM EDT): -Last lipid panel: 11/05/23 -Current Medications: Praluent, atorvastatin 80 mg at bedtime; Zetia 10 mg daily -Continue working on lifestyle modifications continue current medications and periodic lab - Ordered Lipid Panel with Reflex to Direct LDL 09/02/24 Assessment & Plan (07/11/2024 1:09 PM EST): [...] with GI Hypertension 08/17/2012 Assessment & Plan (02/06/2025 6:53 PM EDT): -goal BP < 130/80 per ACC/AHA guideline -BP elevated in the clinic today -comanaged with our pharmacist, deicer repairer electric, and administrative tech. -continue working on lifestyle modifications -Continue Amlodipine 5 mg daily, consider increase if BP is consistently elevated -continue Carvedilol 25 mg bid -continue Spironolactone 25 mg daily (patient is developing mild gynecomastia, but tolerable) -continue sacubitril / valsartan 24-26 mg daily -continue furosemide 20 mg daily as directed by deicer repairer electric and administrative tech - Prescribed BP monitor Assessment & Plan (11/02/2024 11:47 AM EDT): -goal BP <140/90 per JNC-8, < 130/80 per ACC/AHA guideline -BP elevated in the clinic today -comanaged with our pharmacist, deicer repairer electric, and administrative tech. -continue working on lifestyle modifications -Continue Amlodipine 5 mg daily, consider increase if BP is consistently elevated -continue Carvedilol 25 mg bid -continue Spironolactone 25 mg daily (patient is developing mild gynecomastia, but tolerable) -continue sacubitril / valsartan 24-26 mg daily -continue furosemide 20 mg daily as directed by deicer repairer electric and administrative tech - Prescribed BP monitor Assessment & Plan (09/05/2024 4:44 PM EDT): -goal BP <140/90 per JNC-8, < 130/80 per ACC/AHA guideline -BP at goal, normal BP at home, per patient's caregiver -comanaged with our pharmacist, deicer repairer electric, and administrative tech. -continue working on lifestyle modifications -decrease Amlodipine to 5 mg daily. -continue Carvedilol 25 mg bid -continue Spironolactone 25 mg daily (patient is developing mild gynecomastia, but tolerable) -continue sacubitril / valsartan 24-26 mg daily -continue furosemide 20 mg daily as directed by deicer repairer electric and administrative tech - Ordered Albumin, Random Urine W/Creatinine 09/02/24 Assessment & Plan (07/11/2024 1:11 PM EST): -goal BP <140/90 per JNC-8, < 130/80 per ACC/AHA guideline -BP not at goal, normal BP at home, per patient's caregiver -comanaged with our pharmacist, deicer repairer electric, and administrative tech. -continue working on lifestyle modifications -decrease Amlodipine to 5 mg daily. -continue Carvedilol 25 mg bid -continue Spironolactone 25 mg daily (patient is developing mild gynecomastia, but tolerable) -continue sacubitril / valsartan 24-26 mg daily -continue furosemide 20 mg daily as directed by deicer repairer electric and administrative tech Assessment & Plan (03/01/2024 10:45 AM EDT): -goal BP <140/90 per JNC-8, < 130/80 per ACC/AHA guideline -BP at goal -comanaged with our pharmacist, deicer repairer electric, and administrative tech. -continue working on lifestyle modifications -decrease Amlodipine to 5 mg daily. -continue Carvedilol 25 mg bid -continue Spironolactone 25 mg daily -continue valsartan 40 mg daily -continue furosemide 20 mg daily as directed by deicer repairer electric and administrative tech -requested 24 hour BP monitoring with administrative tech; check its status -follow up in 3 [...] -BP at goal -comanaged with our pharmacist, deicer repairer electric, and administrative tech. -continue working on lifestyle modifications -decrease Amlodipine to 5 mg daily. -continue Carvedilol 25 mg bid -continue Spironolactone 25 mg daily -continue valsartan 40 mg daily -continue furosemide 20 mg daily as directed by deicer repairer electric and administrative tech -requested 24 hour BP monitoring with administrative tech; check its status -follow up in 3 mo or sooner prn Assessment & Plan (09/05/2023 9:46 AM EDT): -goal BP <140/90 per JNC-8, < 130/80 per ACC/AHA guideline -BP not at goal -comanaged with our pharmacist, deicer repairer electric, and administrative tech. -continue working on lifestyle modifications -continue Lisinopril 40 mg daily -decrease Amlodipine to 5 mg daily. -continue Carvedilol 25 mg bid -restart Spironolactone 25 mg daily -discontinue hydralazine 10 mg tid -continue furosemide as directed by deicer repairer electric and administrative tech; currently taking 20 mg MWF, and taking extra for weight gain and holding for weight loss and symptomatic hypotension -requested 24 hour BP monitoring with administrative tech; check its status -follow up in 3 mo or sooner prn Assessment & Plan (06/05/2023 2:02 PM EST): Pt here for a HDF -comanaged with our pharmacist, deicer repairer electric, and administrative tech. In the Hospital Lisinopril was discontinued due [...] normal at home -comanaged with our pharmacist, deicer repairer electric, and administrative tech. -continue working on lifestyle modifications -continue Lisinopril 40 mg daily -continue Amlodipine 10mg daily. -continue Carvedilol 25 mg bid -continue Spironolactone 25 mg daily -continue hydralazine to 10 mg tid, decreased dose from 25 mg tid to 10 mg tid on 04/05/21. -pt was advised to check BP before taking hydralizine. hold if systolic BP <110 -requested 24 hour BP monitoring with administrative tech; check its status -follow up in 3 mo or sooner prn Assessment & Plan (11/17/2022 4:25 PM EDT): -goal BP <140/90 per JNC-8, < 130/80 per ACC/AHA guideline -BP not at goal, reportedly normal at home -comanaged with our pharmacist, deicer repairer electric, and administrative tech. -continue working on lifestyle modifications -continue Lisinopril 40 mg daily -continue Amlodipine 10mg daily. -continue Carvedilol 25 mg bid -continue Spironolactone 25 mg daily -continue hydralazine to 10 mg tid, decreased dose from 25 mg tid to 10 mg tid on 04/05/21. -pt was advised to check BP before taking hydralizine. hold if systolic BP <110 -requested 24 hour BP monitoring with administrative tech; check its status Assessment & Plan (09/16/2022 8:27 AM EDT): -goal BP <140/90 per JNC-8, < 130/80 per ACC/AHA guideline -BP not at goal, reportedly normal at home -comanaged with our pharmacist, deicer repairer electric, and administrative tech. -continue working on lifestyle modifications -continue Lisinopril 40 mg daily -continue Amlodipine 10mg daily. -continue Carvedilol 25 mg bid -continue Spironolactone 25 mg daily -continue hydralazine to 10 mg tid, decreased dose from 25 mg tid to 10 mg tid on 04/05/21. -pt was advised to check BP before taking hydralizine. 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 Chucky sauecda mirtazapine and trazodone - treatment Hx: Lorazepam; antipsychotics Assessment & Plan (07/11/2024 1:09 PM EST): - major depression - S provider: [facility] Psychiatrevita sauceda mirtazapine and trazodone - treatment Hx: Lorazepam; antipsychotics Assessment & Plan (03/07/2024 7:43 AM EDT): - major depression - S provider: [facility] Psychiatrevita sauceda mirtazapine and trazodone - treatment Hx: Lorazepam; antipsychotics Assessment & Plan (09/04/2023 9:58 PM EDT): - major depression - S provider: [facility] Psychiatrevita sauceda mirtazapine and trazodone - treatment Hx: Lorazepam; antipsychotics Assessment & Plan (02/22/2023 4:48 AM EDT): - major depression - S provider: [facility] Psychiatrevita sauceda mirtazapine and trazodone - treatment Hx: Lorazepam; antipsychotics Assessment & Plan (11/17/2022 4:33 PM EDT): - major depression - [facility] provider: [facility] Psychiatrist Dr. 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 Zhang here for a HDF He was recently admitted to [facility] with increased sob and treated for Congestive heart failure exacerbation. While in the hospital he was diuresed with IV Lasix. A few days after discharge he presented to the emergency room with c/o cough and sob, dx with COVID and treated conservatively as oxygen saturations was 99%. He then presented himself to [facility] for further treatment and was eventually admitted x 3 days for COVID, CHF, and PRITI. Upon discharge lisinopril and Aldactone were discontinued. Disease due to severe acute respiratory syndrome coronavirus 2 (SARS-CoV-2) 05/20/202308/15 Overview (08/18/2023): Problem added by Discern Expert Colon cancer screening 04/04/2023 04/04/202309/04 Gastroenteritis 08/26/2022 09/08/2022 Encounters Date Type Department Care Team Description 04/08/2025 2:00 PM EDT Office Visit [facility] [address] [address] Mel Duran MD Pectoralis muscle strain, initial encounter (Primary Dx) 04/08/2025 Telephone [facility] [address] [address] Mel Duran MD triage 04/08/2025 Travel 04/06/2025 Telephone [facility] [address] [address] Michelle Zhang MD Durable Medical Equipment 03/18/2025 Travel 03/09/2025 3:00 PM EDT Clinical Support [facility] [place] [address] Maddison Hu, RN Type 2 diabetes mellitus with stage 3a chronic kidney disease, without long-term current use of insulin ([facility]) 03/09/2025 Travel 02/18/[address] [address] Maddison Hu, MANOLO [employer] [facility] 02/17/[address] [address] Michelle Zhang MD Medical equipment for Bp monitor 02/09/[address] [address] Michelle Zhang MD Type 2 diabetes mellitus with other specified complication, unspecified whether fdc insulin use ([facility]) 02/08/[address] [address] Michelle Zhang MD eye 02/07/2025 11:00 AM EDT Office Visit [address] [address] Michelle Zhang MD Primary hypertension (Primary Dx); Ischemic heart disease; Heart failure with reduced ejection fraction (CMS/[facility]); Dyslipidemia; Type 2 diabetes mellitus with stage 3a chronic kidney disease, without long-term current use of insulin (CMS/[facility]); Stage 3a chronic kidney disease (CMS/HCC); Nocturia 02/07/2025 Travel 02/04/[address] [address] Michelle Zhang MD CHART PREP from Last 3 Months Immunizations Immunization Administration Dates Next Due Hep B, adult [...] air Inhaled Oxygen Concentration - - Weight 70.2 kg (154 lb 12.8 oz) 025 10:36 AM EDT Height 177.8 cm (5' 10 ) 02/07/2025 11: 05 AM EDT Body Mass Index 22.21 02/07/2025 11:05 AM EDT Plan of Treatment Upcoming Encounters Date Type Department Care Team (Late st Contact Info) Description 05/10/2025 10:30 AM EST Office Visit [facility] [address] [place] [address] Michelle Zhang MD [address] [place] [address] 06/27/2025 11:30 AM EST Medication Management [facility] [address] [place] [address] Duke Betancourt, PharmD [address] [place] [address] Health Maintenance Due Date Last Done Comments CT Colonography 1950 FIT DNA/Cologuard 1950 FIT 1950 FOBT 1950 Sigmoidoscopy 1950 Hepatitis C Screening 11/05/1967 Dental X-Ray: Bitewings 11/07/2011 11/05/2010 Dental X-Ray: Full Mouth 11/06/2013 11/05/2010 Dental Prophylaxis 09/09/2016 03/11/2016, 0 11/24/2014, 03/16/2014, Additional history exists Dental Oral Exam 01/08/2020 07/09/2019, 02/2017, 12/19/2015, Additional history exists Eye Exam 02/01/2024 01/31/2023 Lipid Panel 2024 11/05/2023, 08/15, 11/13/2022, Additional history exists RSV Patients and Patients Aged 60 years or older (1 - 1-dose 75+ series) 2024 COVID-19 Vaccine ( season) 2025 01/14/2022, 06/14/2021, 08/31/2020, Additional history exists Influenza Vaccine (#1) 2025 , 04/21/2023, 04/21/2023, Additional history exists Diabetes: Hemoglobin A1C 05/10/2025 025, 11/02/2024, 07/08/2024, Additional history exists Diabetes: Foot Exam 09/02/2025 09/02/2024, 09/04/2023, 09/04/2023, Additional history exists Alcohol/Substance Use Screening 11/02/2025 11/02/2024 SDOH Screening 11/02/2025 11/02/2024 Depression Screening 02/07/2026 02/07/2025, 02/08/20 Tobacco Screening 02/15/2026 02/15/2025 DTaP/Tdap/Td Vaccines (3 - Td or Tdap) 11/12/2032 11/12/2022, 08/17/2012 Colonoscopy 04/28/2033 04/28/2023 Colorectal Cancer Screening 04/28/2033 Hepatitis B Vaccines Completed 06/15/2015, 05/03/2014, 09/27/2013 Pneumococcal Vaccine: 50+ Years Completed 03/03/2018, 12/08/2014, 08/17/2012 Zoster Vaccines Completed 05/31/2019, 02/15, 12/08/2014 HIB Vaccines Aged Out No longer eligi [...] patient's age to complete this topic Meningococcal B Vaccine Aged Out No l onger eligible based on patient's age to complete [...] 025 1:14 PM EDT) No Duke Betancourt, SanjayD Procedures Procedure Name Priority Date/Time Associated Diagnosis Comments ALBUMIN, RANDOM URINE W/CREATININE Routine 04/13/2025 10:41 AM EDT Type 2 diabetes mellitus with stage 3a chronic kidney disease, without long-term current use of insulin (HCC) Primary hypertension POCT GLYCOSYLATED HEMOGLOBIN (HGB A1C) Routine 02/07/2025 11:08 AM EDT Type 2 diabetes mellitus with stage 3a chronic kidney disease, without long-term current use of insulin ([facility]) POCT GLUCOSE Routine 02/07/2025 11:05 AM EDT Type 2 diabetes mellitus with stage 3a chronic kidney disease, without long-term current use of insulin ([facility]) LIPID PANEL, STANDARD Routine 11/05/2023 8:04 AM [...] Relevant to Health Maintenance Results * (ABNORMAL) Albumin, Random Urine W/Creatinine (04/13/2025 10:41 AM EDT) Creatinine, Urine 73.78 mg/dL [facility] Microalbumin Urine 163.0 mg/L [facility] Microalbum Creatinine Ratio Ur 220.9(H) <30 ug/mg cr [facility] Comment:Albumin/Creatinine R atio Reference Ranges: Normal: < 30 ug/mg creatinine Microalbuminuria: 30 - 300 ug/mg creatinineClinical Albuminuria: > 300 ug/mg creatinine Urine 04/13/2025 10:4 1 AM EDT 04/13/2025 11:21 AM EDT us Michelle Zhang MD LAB URINE ORDERABLES Final Resul t [facility] [address] [place] [phone] * (ABNORMAL) POCT glycosylated hemoglobin (Hgb A1c) (02/07/2025 11:08 AM EDT) Hemoglobin A1C 9.0(A) 4.0 - 5.7 % QC Media Lot # [id number] Lot# Expiration Date ,[id number] Blood Capillary blood specimen / Unknown 02/07/2025 11:08 AM EDT Michelle Zhang MD POINT OF CARE TEST ENTER/EDIT OR DERABLES Final Result * (ABNORMAL) POCT glucose manually resulted (02/07/2025 11:05 AM EDT) Glucose Blood, POC 326(A) 60 - 200 mg/dL QC Media Lot # [id number] Lot# Expiration Date ,[id number] Blood Capillary blood specimen / Unknown 02/07/2025 11:05 AM EDT Michelle Zhang MD POINT OF CARE TEST ENTER/EDIT OR DERABLES Final Result * (ABNORMAL) Lipid Panel, Standard (11/05/2023 8:04 AM EDT) Triglycerides 103 <150 mg/dL [facility] Comment:Desirable Triglyceri de: less than 150 mg/dLBorderline High Triglyceride 150-199 mg/dLHigh Triglyceride: 200-499 mg/dLVery High Triglyceride: greater than or equal to 5OO mg/dL Cholesterol 109 <200 mg/dL [facility] Comment:Desirable Cholestero l: less than 200 mg/dLBorderline High Cholesterol: 200-239 mg/dLHigh Cholesterol: greater than 239 mg/dL LDL Cholesterol Calculated 52 <100 mg/dL [facility] Comment:Desirable LDL: less than 100 mg/dLNear Optimal/Above Optimal LDL: 110- 129 mg/dLBorderline High LDL: 130-159 mg/dLHigh LDL: 160-189 mg/dLVery High LDL: greater than or equal to 190 mg/dL HDL Cholesterol 37(L) >40 mg/dL [facility] Comment:Desirable HDL: great er than 40 mg/dL Note: This HDL assay may give artificially low results in patients with liver disease. 11/05/2023 8:04 AM EDT 11/05/2023 8:04 AM EDT Generic External Data Provider LAB BLOOD ORDERAB LES Final Result [facility] [address] [place] [phone] * Colonoscopy (04/28/2023) Colonoscopy Normal Normal us Historical Provider HEALTH MAINTENANCE Edited Result - Final * Diabetes Eye Exam (01/31/2023) Eye Exam Normal Normal, BIRADS 0 , BIRADS 1 , BIRADS 2, BIRADS 3 , BIRADS 4+ us Historical Provider MD HEALTH MAINTENANCE Final Result from Last 3 Months or Most Recently Relevant to Health Maintenance Insurance [facility] [employer] (O D-SNP) DELFINA HENDERSON [id number] [facility] Care Teams Surtass Analyst Relationship Specialty Start Date End Date Michelle Zhang MD [address] [place] [address] PCP - General Family Medicine 04/15/12 Duke Betancourt, PharmD [address] [place] [address] Pharmacist Pharmacy 03/18/25
--- OUTSIDE RECORDS SUMMARY | 2025-04-13 13:00 | XMS_ITS | Encounter Summary ---
Author Organization [employer] Address [address] [place] [address] 7[address] [place] [address] Care Team Providers Care Luggage Maker Name Role Phone Michelle Zhang MD Primary Care Provider [phone] Duke Betancourt PharmD Unavailable [phone] Duke Betancourt PharmD Unavailable [phone] Encounter Details Date Type Department Care Team (Late st Contact Info) Description 10/15/2024 Telephone [facility] [address] [place], [place] [phone] Michelle Zhang MD [address] [place], [place] [phone] Social History Tobacco Use Types Packs/Day Years [...] encounter Miscellaneous Notes * Telephone Encounter - Jocelyn Garcia - 10/15/2024 8:22 AM EDT Tc from [facility] stating was sick yesterday and overslept. Pt was unable to attend the appointment because she's providing transportation. Appointment for 10/14 was rescheduled for 11/02 at 11:15 am. documented in this encounter Plan of Treatment Upcoming Encounters Date Type Department Care Team (Late st Contact Info) Description 05/10/2025 10:30 AM EST Office Visit [facility] [address] [place] [phone] Michelle Zhang MD [address] [place] [address] 06/27/2025 11:30 AM EST Medication Management [facility] [address] [place] [address] Duke Betancourt, PharmD [address] [place] [address] documented as of this encounter Goals Goal [...] documented as of this encounter Care Teams Luggage Maker Relationship Specialty Start Date End Date Michelle Zhang MD [address] [place] [address] PCP - General Family Medicine 04/15/12 Duke Betancourt, PharmD [address] [place] [address] Pharmacist Internal Medicine 08/26/22 03/17/25 Duke Betancourt, PharmD [address] [place] [address] Pharmacist Pharmacy 03/18/25 documented as of this encounter
--- OUTSIDE RECORDS SUMMARY | 2025-04-13 13:00 | XMS_ITS | Encounter Summary ---
Author Organization [employer] Address [address] [place] [address] 7t [place] [address] Care Team Providers Care Auto Damage Trainee Name Role Phone Michelle Zhang MD Primary Care Provider [phone] Duke Betancourt PharmD Unavailable [phone] Duke Betancourt PharmD Unavailable [phone] Reason for Visit * Reason Onset Date Comments glucose meter 11/18/2022 Encounter Details Date Type Department Care Team (Late st Contact Info) Description 11/18/2022 Telephone [facility] [address] [place], [place] [phone] Michelle Zhang MD [address] [place], [place] [phone] glucose meter Social History Tobacco Use Types [...] Description 05/10/2025 10:30 AM EST Office Visit [address] [address] Michelle Zhang MD [address] [place] [address] 06/27/2025 11:30 AM EST Medication Management [address] [phone] Duke Betancourt PharmD [address] [place] [phone] documented as of this encounter Goals Goal Patient Goal Type Associated Problems Recent Progress Patient-Stated? Author Blood Pressure < 140/90 Blood Pressure 157/96( 1:14 PM EDT) No Duke Betancourt, Wolf documented as of this encounter Visit Diagnoses Diagnosis Type 2 diabetes mellitus with microalbuminuria, without long-term current use of insulin (HCC) documented in this encounter Additional Health Concerns Assessment Noted Time PHQ-9 Depression Total Score: 0 09/10/19 23 10:48 AM EDT documented as of this encounter Care Teams Auto Damage Trainee Relationship Specialty Start Date End Date Michelle Zhang MD [address] [place] [phone] PCP - General Family Medicine 04/15/12 Duke Betancourt PharmD [address] [place] [phone] Pharmacist Internal Medicine 08/26/22 03/17/25 Duke Betancourt PharmD [address] [place] [phone] Pharmacist Pharmacy 03/18/25 documented as of this encounter
[2025-04-13 13:38] LABS: Alanine Aminotransferase 35 U/L (0-40); Albumin Level 4.0 g/dL (3.5-5.0); Alkaline Phosphatase 97 U/L (39-117); Anion Gap 9 (12-20); Aspartate Amino Transferase 27 U/L (5-37); Blood Urea Nitrogen 24 mg/dL (9-16); Calcium 9.3 mg/dL (8.4-10.2); Carbon Dioxide 29 mmol/L (22-29); Chloride 106 mmol/L (96-108); Cholesterol 124 mg/dL (<200); Estimated Glomerular Filt Rate 58; HDL Cholesterol 40 mg/dL (>40); Potassium 4.1 mmol/L (3.3-5.1); Sodium 140 mmol/L (135-145); Total Protein 7.6 g/dL (6.5-8.0); Triglycerides 115 mg/dL (<150)
[2025-04-13 13:44] LABS: Reflex LDLD? No
[2025-04-14 04:29] LABS: ~HepC Num1 0.07 S/CO (0.00-0.79); ~Hepatitis C Antibody Nonreactive (Nonreactive)
== END 2025-04-13 10:29 | disposition home or self-care (01) ==
LOC: HO.HHCL 10:28
PROVIDERS: PCP Family Medicine; Visit Provider Family Medicine
DX: I12.9 Hypertensive chronic kidney disease with stage 1 through stage 4 chronic kidney disease, or unspecified chronic kidney disease (principal); N18.31 Chronic kidney disease, stage 3a; E11.22 Type 2 diabetes mellitus with diabetic chronic kidney disease; E78.5 Hyperlipidemia, unspecified; Z11.59 Encounter for screening for other viral diseases
CPT/HCPCS: 36415; 80053; 80061; 82043; 82570; 86803

== ENCOUNTER → 2025-05-04 12:33 | Outpatient (REF) | payer OTHER, SELFPAY ==
--- NOTE | 2025-05-04 12:36 | CA_ITS ---
Transthoracic Echocardiogram Patient (Last, First, Middle): Johny Mansfield, Gender: M Date of : 1950 Age: 74 Procedure Date: 05/04/2025 Procedure Type: Transthoracic Echocardiogram Location: OP Height: 177.8 cm Weight: 68.04 kg BSA: 1.85 m2 Heart Rate: bpm Colored Leather Setter: HAILE Referring MD: João Interiano MD Symptoms: I25.5 - Ischemic cardiomyopathy Study Quality: Adequate ECG Rhythm: Sinus Conclusions: - The left ventricular systolic function is moderately decreased. The calculated ejection fraction is 39% by biplane method. - The basal inferior, basal inferoseptal, and basal inferolateral segments are akinetic. - There is moderate calcification of the aortic valve. - No obvious valvular pathology seen on this study. Findings Left Ventricle Normal left ventricular cavity size. The left ventricular systolic function is moderately decreased. The calculated ejection fraction is 39% by biplane method. There is evidence of regional wall motion abnormalities. Evidence suggests grade I (mild) diastolic dysfunction. There is moderate septal asymmetric hypertrophy. Wall Motion Rest Echo Findings The basal inferior, basal inferoseptal, and basal inferolateral segments are akinetic. Right Ventricle Normal right ventricular cavity size. There is moderately decreased right ventricular systolic function. Atria Both atria are normal in size. Aortic Valve There is a normal trileaflet aortic valve. There is moderate calcification of the aortic valve. There is no aortic valve stenosis. There is no aortic valve regurgitation. Mitral Valve The mitral valve appears normal. There is trace mitral valve regurgitation. There is no mitral valve stenosis. Pulmonic Valve The pulmonic valve is likely normal. Tricuspid Valve Normal tricuspid valve structure. There is no tricuspid valve regurgitation. Tricuspid regurgitation envelope is inadequate for calculation of right ventricular systolic pressure. Great Vessels The asc aorta is normal in size. Venous The inferior vena cava was not well visualized. Pericardium/Pleural There is no evidence of pericardial effusion. Prior Study Comparison No significant change compared to prior study dated: 02/20/2024. Recommendations, Care & Conclusions No obvious valvular pathology seen on this study. Measurements 2D Linear Measurements IVSd: 1.34 0.6-0.9/0.6-1.0 cm LVIDd: 3.64 3.9-5.3/4.2-5.9 cm LVIDd Index: 1.97 2.4-3.2/2.2-3.1 cm/m2 LVIDs: 3.20 2.0-3.6 cm LVPWd: 0.98 0.7-1.1 cm LA Diam: 4.20 2.7-3.8/3.0-4.0 cm LAIDs Index: 2.27 1.5-2.3 cm/m2 LV Mass: 170.13 67-162/88-224 g LV Mass Index: 91.96 43-95/49-115 g/m2 LVOT Diam: 2.20 3.0+(-)1.3 cm 2D Systolic Function EF 4C: 48.10 >55% EF 2C: 28.60 >55% EF BiP: 39.10 >55% Mitral Valve MV Pk E: 0.37 MV PK A: 0.66 MV Decel Time: 232.00 E/A: 0.60 E'Lateral: 6.96 E'Medial: 3.15 E/E' Med: 11.70 E/E' Lat: 5.30 PHT: 68.00 MVA PHT: 3.24 Decel Burnet: 1.59 Aortic Valve AoV Pk Dawson: 1.59 AoV Mn Dawson: 1.01 AoV VTI: 0.27 AoV Pk Grad: 10.00 Aov Mn Grad: 5.00 WHITNEY Cont.VTI: 1.68 LVOT LVOT Pk Dawson: 0.71 LVOT Mn Dawson: 0.47 LVOT VTI: 0.12 LVOT Pk Grad: 2.00 LVOT Mn Grad: 1.00 LVOT Diam: 2.20 LVOT Area: 3.80 Diastolic Function MV Pk E: 0.37 MV Pk A: 0.66 E/A: 0.60 E'Medial: 3.15 E/E' Med: 11.70 E' Laterial: 6.96 E/E' Lat: 5.30 Right Ventricle TAPSE (mm): 8.84 TVS' Dawson: 7.29 Great Vessels Aorta Sinus of Valsalva: 3.00 2.0-3.5 cm Ao Asc: 3.10 2.1-3.4 cm Ao Arch: 2.60 Pulmonary Veins Pulm Vein S/D 2.20 Pulmonary Valve PV Pk Dawson: 0.66 Peak PV Grad: 2.00 Updated in Other Vendor System with Status of Final Alvaro Adan MD electronically signed on 05/05/2025 11:07:43 AM with status of Final
--- OUTSIDE RECORDS SUMMARY | 2025-05-04 23:48 | XMS_ITS | Encounter Summary ---
Author Organization [employer] Address [address] [place] [address] 7t [place] [address] Care Team Providers Care Finisher Tailor Apprentice Name Role Phone Michelle Zhang MD Primary Care Provider [phone] Duke Betancourt PharmD Unavailable [phone] Duke Betancourt PharmD Unavailable [phone] Reason for Visit * Reason Onset Date Comments FYI 06/03/2023 Encounter Details Date Type Department Care Team (Late st Contact Info) Description 06/03/2023 Telephone [facility] [address] [place], [place] [phone] Michelle Zhang MD [address] [place], [place] [phone] FYI Social History Tobacco Use Types Packs/Day [...] - 06/03/2023 10:57 AM EST Tc from [facility] stating that their will be discharging pt due to not being ableto reach pt. documented in this encounter Plan of Treatment Upcoming Encounters Date Type Department Care Team (Late st Contact Info) Description 05/10/2025 10:30 AM EST Office Visit [facility] [address] [place] [phone] Michelle Zhang MD [address] [place] [phone] 06/27/2025 11:30 AM EST Medication Management [facility] [address] [place] [phone] Duke Betancourt, SanjayD [address] [place] [phone] documented as of this encounter Goals Goal [...] documented as of this encounter Care Teams Finisher Tailor Apprentice Relationship Specialty Start Date End Date Michelle Zhang MD [address] [place] [address] PCP - General Family Medicine 04/15/12 Duke Betancourt, PharmD [address] [place] [phone] Pharmacist Internal Medicine 08/26/22 03/17/25 Duke Betancourt, Wolf [address] [place] [phone] Pharmacist Pharmacy 03/18/25 documented as of this encounter
--- OUTSIDE RECORDS SUMMARY | 2025-05-04 23:48 | XMS_ITS | Encounter Summary ---
Author Organization [employer] Address [address] [place] [address] 7t [place] [address] Care Team Providers Care Cook Short Order Name Role Phone Michelle Zhang MD Primary Care Provider [phone] Dkue Betancourt PharmD Unavailable [phone] Duke Betancourt PharmD Unavailable [phone] Encounter Details Date Type Department Care Team (Late st Contact Info) Description 10/03/2023 Orders Only [facility] [address] [place], [place] [phone] Michelle Zhang MD [address] [place], [place] [phone] Social History Tobacco Use Types Packs/Day Years [...] Description 05/10/2025 10:30 AM EST Office Visit [facility] [address] [place] [phone] Michelle Zhang MD [address] [place] [phone] 06/27/2025 11:30 AM EST Medication Management [address] [address] Duke Betancourt PharmD [address] [place] [phone] documented as of this encounter Goals Goal [...] documented as of this encounter Care Teams Cook Short Order Relationship Specialty Start Date End Date Michelle Zhang MD [address] [place] [phone] PCP - General Family Medicine 04/15/12 Duke Betancourt PharmD [address] [place] [address] [phone] Pharmacist Internal Medicine 08/26/22 03/17/25 Duke Betancourt, PharmD [address] [place] [address] [place] [address] Pharmacist Pharmacy 03/18/25 documented as of this encounter
--- OUTSIDE RECORDS SUMMARY | 2025-05-04 23:48 | XMS_ITS | Patient Health Record ---
Author Organization [facility] Address [address] [place] [address] Care Team Providers Care Branch Operations Specialist Name Role Phone Leatha SUBRAMANIAN, Michelle Primary Care Provider Fausto Knight [phone] Allergies No Known Allergies Reason For Referral No Information Medications Medication SIG (Take, Route, Frequency, Duration) Notes Start Date End Date Status Aspirin Adult Low Strength 81 MG Tablet Delayed Release Oral; Duration: 90 Active Dulcolax (colon prep) 5 MG Tablet Delayed Release take at 3:00 p.m and 7:00p.m. Orally two tablets twice a day for one day; Duration: 1 day 01/29/2023 Active Ezetimibe 10 MG Tablet TAKE 1 TABLET BY MOUTH AT BEDTIME Oral; Duration: 90 Active MiraLax (colon prep) 17 GM/SCOOP Powder 1 238Gm bottle mixed with Gatorade or Crystal Light Orally begin at 5:00 p.m. the day before the procedure; Duration: 1 day 01/29/2023 Active metFORMIN HCl 1000 MG Tablet Oral; Duration: 90 Active Atorvastatin Calcium 80 MG Tablet Oral; Duration: 90 Active Carvedilol 25 MG Tablet Oral; Duration: 90 Active hydrALAZINE HCl 10 MG Tablet TAKE 1 TABL ET BY MOUTH THREE TIMES DAILY IN THE MORNING, AT NOON, AND IN THE EVENING WITH FOOD Oral; Duration: 60 Active Jardiance 25 MG Tablet TAKE 1 TABLET BY MOUTH EVERY MORNING Diagnosis Unavailable Oral; Duration: 60 Active Mirtazapine 15 MG Tablet TAKE 1/2 TABLET BY MOUTH AT BEDTIME Oral; Duration: 60 Active Trulicity 0.75 MG/0.5ML Solution Pen-injector Subcutaneous; Duration: 28 Active Spironolactone 25 MG Tablet Oral; Duration: 30 Active Pantoprazole Sodium 40 MG Tablet Delayed Release Oral; Duration: 60 Active Lisinopril 40 MG Tablet Oral; Duration: 90 Active Social History Tobacco Use: Social History Observation Description Date Details (start date - stop date) Never Smoker NA - NA Social History Drugs/Alcohol: Social Info Question Answer Notes Alcohol Screen Did you have a drink containing alcohol in the past year? No Points 0 Interpretation Negative Tobacco Use: Social Info Question Answer Notes Tobacco Use/Smoking Patient is a nonsmoker Additional Details Category Social Info Options Details Miscellaneous: Marital status: single aylin g time partner Occupation: retired Problems Problem Type SNOMED Code ICD Code Onset Dates Problem Status W/U Status Risk Notes Problem Colon cancer screening (324217986) Colon cancer screening (Z12.11) Active confirmed Problem Diverticular disease of colon (043713621) Diverticulosis of large intestine without perforation or abscess without bleeding (K57.30) Active confirmed Problem Long-term current use of antiplatelet drug (383058696198830 ) Long-term use of aspirin therapy (Z79.82) Active confirmed Plan Of Treatment Future Test Test Name Order Date COLONOSCOPY 01/29/2023 Insurance Providers Payer Name Payer Address Payer Phone Subscriber Number Group Number Insured Name Patient Relationship to Insured Coverage Start Date Coverage End Date [facility] [address] Attn Claims [place] [id number] LIANA RAMOS Self - patient is the insured MEDICARE OF [place] [address] [place] [address] [id number] LIANA RAMOS Self - patient is the insured Medical (General) History Medical History History ICD Code NIDDM Hyperlipidemia Hypertension Ischemic heart disease- Dr. Interiano Hx of H pylori Stage 3 chronic kidney disease GERD Negative colonoscopy [place] [address] Luis Eduardo barrios Denies [place],CVA,Lung disease Coronary artery diasease with CABG as be low Surgical History Surgery Date(Month/Year) CCY 3V CABG 01/21/2017
--- OUTSIDE RECORDS SUMMARY | 2025-05-04 23:48 | XMS_ITS | Clinical Summary ---
Author Organization [employer] Address [address] [place] [address] [address] [place] [address] Care Team Providers Care Rapid Extractor Operator Name Role Phone Michelle Davis MD Primary Care Provider [phone] Duke Betancourt PharmD Unavailable [phone] Allergies No known active allergies Medications Nutritional [...] mellitus with other specified complication, unspecified whether retirement insulin use (HCC) TAKE 1 TABLET BY MOUTH EVERY MORNING 90 tablet 3 025 Active Continuous Glucose Client Services Assistant (FreeStyle Lilliam 3 [place]) deviceIndicatio ns:Type 2 diabetes mellitus with stage [...] failure or extremes of BG 100 each 2025 Active Repatha SureClick 140 MG/ML injection [...] skin every 14 (fourteen) days. 2.24 mL 2024 Discontinued(M ed list cleanup (will not [...] 10 units subcutaneously daily. 3 mL 12 2024 Discontinued(M ed list cleanup (will not trigger notification to Pharmacy)) pen needle 32G x 4 mm misc Use as instructed 100 each 2024 Discontinued(M ed list cleanup (will not [...] seen by Dr. 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 09/05/2023 Assessment & Plan (09/03/2024 8:00 PM EDT): - A1c 7.4% on 09/02/24 - will prescribe diabetic footwear - will refer to wet finisher for further evaluation of ingrown toenails Assessment & Plan (09/05/2023 9:59 AM EDT): - will prescribe diabetic footwear - will refer to wet finisher for further evaluation of ingrown toenails Constipation [...] on lifestyle modifications - Follow up with business development sales executive as scheduled - Continue working on risk [...] on lifestyle modifications - Follow up with business development sales executive as scheduled - Continue working on risk [...] on lifestyle modifications - Follow up with business development sales executive as scheduled - Continue working on risk [...] on lifestyle modifications - Follow up with business development sales executive as scheduled - Continue working on risk [...] on lifestyle modifications - Follow up with business development sales executive as scheduled - Continue working on risk [...] on lifestyle modifications - Follow up with business development sales executive as scheduled - Continue working on risk [...] on lifestyle modifications - Follow up with business development sales executive as scheduled - Continue working on risk [...] Jardiance for DM - Follow up with business development sales executive as scheduled - Continue working on risk [...] from prior. Pt was recently admitted to [facility] with CHF exacerbation. BNP up to 2270. While in the hospital diuresed with IV Lasix. Then readmitted to [facility] days later for COVID, [...] had been as high as 2.0 at [facility]. Seen by Cardiology 06/02/2023 [...] Dr. Ji Stage 3a chronic kidney disease (CMS/HCC) 2021 Assessment & Plan (02/06/2025 6:54 PM EDT): - Complex Care Nurse Practitioner: Dr. Ji - continue following with malted milk mixer - continue ARB and SGLT2i - avoid nephrotoxins - renal dose medication Assessment & Plan (11/02/2024 9:04 AM EDT): - Complex Care Nurse Practitioner: Dr. Ji - sohail following with malted milk mixer - continue ARB and SGLT2i - avoid nephrotoxins - renal dose medication Assessment & Plan (09/03/2024 7:47 PM EDT): - Complex Care Nurse Practitioner: Dr. Ji - sohail following with malted milk mixer - continue ARB and SGLT2i - avoid nephrotoxins - renal dose medication Assessment & Plan (07/11/2024 1:07 PM EST): - Complex Care Nurse Practitioner: Dr. Ji - sohail following with malted milk mixer - continue ARB and SGLT2i - avoid nephrotoxins - renal dose medication Assessment & Plan (03/01/2024 10:46 AM EDT): - Complex Care Nurse Practitioner: Dr. Ji - sohail following with malted milk mixer - avoid nephrotoxins - renal dose medication Assessment & Plan (11/18/2023 11:34 AM EDT): - Complex Care Nurse Practitioner: Dr. Ji - sohail following with malted milk mixer - avoid nephrotoxins - renal dose medication Assessment & Plan (09/04/2023 9:59 PM EDT): - Complex Care Nurse Practitioner: Dr. Ji - sohail following with malted milk mixer - avoid nephrotoxins - renal dose medication Assessment & Plan (02/22/2023 4:46 AM EDT): - Complex Care Nurse Practitioner: Dr. Ji - sohail following with malted milk mixer - avoid nephrotoxins - renal dose medication Assessment & Plan (11/17/2022 4:27 PM EDT): - Complex Care Nurse Practitioner: Dr. Ji - sohail following with malted milk mixer - avoid nephrotoxins - renal dose medication [...] PM EDT): -Following with [place]. Interiano at [facility], last seen in November 2024 -quadruple CABG [...] Enntresto in Feb 2024 - Follow-up with business development sales executive as scheduled Assessment & Plan (11/02/2024 9:03 AM EDT): -Following with Dr. Interiano at [facility], last seen in Feb 2024. -quadruple CABG [...] Enntresto in Feb 2024 - Follow-up with business development sales executive as scheduled Assessment & Plan (09/03/2024 7:48 PM EDT): -Following with Dr. Interiano at [facility], last seen in Feb 2024. -quadruple CABG [...] Enntresto in Feb 2024 - Follow-up with business development sales executive as scheduled Assessment & Plan (07/11/2024 1:04 PM EST): -Following with Dr. Interiano at [facility], last seen in Feb 2024. -quadruple CABG [...] Enntresto in Feb 2024 - Follow-up with business development sales executive as scheduled Assessment & Plan (03/01/2024 10:44 AM EDT): -Following with Dr. Interiano at [facility], last seen in September 2023. -quadruple CABG for 3-vessel CAD by Dr. Urirate on 01/06/17. - TTE: 05/19/23 mild to [...] 2023 due to PRITI. - Follow-up with business development sales executive as scheduled Assessment & Plan (11/18/2023 12:31 PM EDT): -Following with Dr. Interiano at [facility], last seen in September 2023. -quadruple CABG [...] 2023 due to PRITI. - Follow-up with business development sales executive as scheduled Assessment & Plan (09/05/2023 9:52 AM EDT): -Following with Dr. Interiano at [facility], last seen in May 2023. -quadruple CABG [...] 2023 due to PRITI. - Follow-up with business development sales executive as scheduled Assessment & Plan (02/22/2023 4:42 AM EDT): -Following with Dr. Interiano at [facility] - TTE: 02/08/19 Echo LVEF 40-45%, mild-mod LV systolic dysfunction, mild mitral regurgitation - Most recent stress echo on 02/14/22: LVEF 55%, 47% with stress. No ischemia. - Continue Carvedilol, lisinopril, spironolactone and ASA. - Continue Jardiance for DM - Follow-up as scheduled Assessment & Plan (11/17/2022 4:25 PM EDT): -Following with Dr. Interiano at [facility] - TTE: 02/08/19 Echo LVEF 40-45%, mild-mod LV systolic dysfunction, mild mitral regurgitation - Most recent stress echo on 02/14/22: LVEF 55%, 47% with stress. No ischemia. - Continue Carvedilol, lisinopril, spironolactone and ASA. - Continue Jardiance for DM Assessment & Plan (09/16/2022 8:41 AM EDT): -Following with Dr. Interiano at [facility] - TTE: 02/08/19 Echo LVEF 40-45%, mild-mod [...] Pt has worked with CDE RN and decal transferrer in the past - Continue working on [...] Pt has worked with CDE RN and decal transferrer in the past - Continue working on [...] Pt has worked with CDE RN and decal transferrer in the past - Continue working on [...] Pt has worked with CDE RN and decal transferrer in the past - Continue working on [...] Pt has worked with CDE RN and decal transferrer in the past - Continue working on [...] Pt has worked with CDE RN and decal transferrer in the past - Continue working on [...] Pt has worked with CDE RN and decal transferrer in the past - Continue working on [...] Pt has worked with CDE RN and decal transferrer in the past Continue working on lifestyle [...] Pt has worked with CDE RN and decal transferrer in the past - Continue working on [...] Pt has worked with CDE RN and decal transferrer in the past - Continue working on [...] Pt has worked with CDE RN and decal transferrer in the past - Continue working on [...] Pt has worked with CDE RN and decal transferrer in the past - Continue working on [...] (02/06/2025 6:53 PM EDT): -Last lipid panel: 5/22/24 -Current Medications: Praluent, atorvastatin 80 mg at [...] the clinic today -comanaged with our pharmacist, business development sales executive, and malted milk mixer. -continue working on lifestyle modifications -Continue Amlodipine 5 mg daily, consider increase if BP is consistently elevated -continue Carvedilol 25 mg bid -continue Spironolactone 25 mg daily (patient is developing mild gynecomastia, but tolerable) -continue sacubitril / valsartan 24-26 mg daily -continue furosemide 20 mg daily as directed by business development sales executive and malted milk mixer - Prescribed BP monitor Assessment & Plan (11/02/2024 11:47 AM EDT): -goal BP <140/90 per JNC-8, < 130/80 per ACC/AHA guideline -BP elevated in the clinic today -comanaged with our pharmacist, business development sales executive, and malted milk mixer. -continue working on lifestyle modifications -Continue Amlodipine 5 mg daily, consider increase if BP is consistently elevated -continue Carvedilol 25 mg bid -continue Spironolactone 25 mg daily (patient is developing mild gynecomastia, but tolerable) -continue sacubitril / valsartan 24-26 mg daily -continue furosemide 20 mg daily as directed by business development sales executive and malted milk mixer - Prescribed BP monitor Assessment & Plan (09/05/2024 4:44 PM EDT): -goal BP <140/90 per JNC-8, < 130/80 per ACC/AHA guideline -BP at goal, normal BP at home, per patient's caregiver -comanaged with our pharmacist, business development sales executive, and malted milk mixer. -continue working on lifestyle modifications -decrease Amlodipine to 5 mg daily. -continue Carvedilol 25 mg bid -continue Spironolactone 25 mg daily (patient is developing mild gynecomastia, but tolerable) -continue sacubitril / valsartan 24-26 mg daily -continue furosemide 20 mg daily as directed by business development sales executive and malted milk mixer - Ordered Albumin, Random Urine W/Creatinine 09/02/24 Assessment & Plan (07/11/2024 1:11 PM EST): -goal BP <140/90 per JNC-8, < 130/80 per ACC/AHA guideline -BP not at goal, normal BP at home, per patient's caregiver -comanaged with our pharmacist, business development sales executive, and malted milk mixer. -continue working on lifestyle modifications -decrease Amlodipine to 5 mg daily. -continue Carvedilol 25 mg bid -continue Spironolactone 25 mg daily (patient is developing mild gynecomastia, but tolerable) -continue sacubitril / valsartan 24-26 mg daily -continue furosemide 20 mg daily as directed by business development sales executive and malted milk mixer Assessment & Plan (03/01/2024 10:45 AM EDT): -goal BP <140/90 per JNC-8, < 130/80 per ACC/AHA guideline -BP at goal -comanaged with our pharmacist, business development sales executive, and malted milk mixer. -continue working on lifestyle modifications -decrease Amlodipine to 5 mg daily. -continue Carvedilol 25 mg bid -continue Spironolactone 25 mg daily -continue valsartan 40 mg daily -continue furosemide 20 mg daily as directed by business development sales executive and malted milk mixer -requested 24 hour BP monitoring with malted milk mixer; check its status -follow up in 3 [...] -BP at goal -comanaged with our pharmacist, business development sales executive, and malted milk mixer. -continue working on lifestyle modifications -decrease Amlodipine to 5 mg daily. -continue Carvedilol 25 mg bid -continue Spironolactone 25 mg daily -continue valsartan 40 mg daily -continue furosemide 20 mg daily as directed by business development sales executive and malted milk mixer -requested 24 hour BP monitoring with malted milk mixer; check its status -follow up in 3 mo or sooner prn Assessment & Plan (09/05/2023 9:46 AM EDT): -goal BP <140/90 per JNC-8, < 130/80 per ACC/AHA guideline -BP not at goal -comanaged with our pharmacist, business development sales executive, and malted milk mixer. -continue working on lifestyle modifications -continue Lisinopril 40 mg daily -decrease Amlodipine to 5 mg daily. -continue Carvedilol 25 mg bid -restart Spironolactone 25 mg daily -discontinue hydralazine 10 mg tid -continue furosemide as directed by business development sales executive and malted milk mixer; currently taking 20 mg MWF, and taking extra for weight gain and holding for weight loss and symptomatic hypotension -requested 24 hour BP monitoring with malted milk mixer; check its status -follow up in 3 mo or sooner prn Assessment & Plan (06/05/2023 2:02 PM EST): Pt here for a HDF -comanaged with our pharmacist, business development sales executive, and malted milk mixer. In the Hospital Lisinopril was discontinued due [...] normal at home -comanaged with our pharmacist, business development sales executive, and malted milk mixer. -continue working on lifestyle modifications -continue Lisinopril 40 mg daily -continue Amlodipine 10mg daily. -continue Carvedilol 25 mg bid -continue Spironolactone 25 mg daily -continue hydralazine to 10 mg tid, decreased dose from 25 mg tid to 10 mg tid on 04/05/21. -pt was advised to check BP before taking hydralizine. hold if systolic BP <110 -requested 24 hour BP monitoring with malted milk mixer; check its status -follow up in 3 mo or sooner prn Assessment & Plan (11/17/2022 4:25 PM EDT): -goal BP <140/90 per JNC-8, < 130/80 per ACC/AHA guideline -BP not at goal, reportedly normal at home -comanaged with our pharmacist, business development sales executive, and malted milk mixer. -continue working on lifestyle modifications -continue Lisinopril 40 mg daily -continue Amlodipine 10mg daily. -continue Carvedilol 25 mg bid -continue Spironolactone 25 mg daily -continue hydralazine to 10 mg tid, decreased dose from 25 mg tid to 10 mg tid on 04/05/21. -pt was advised to check BP before taking hydralizine. hold if systolic BP <110 -requested 24 hour BP monitoring with malted milk mixer; check its status Assessment & Plan (09/16/2022 8:27 AM EDT): -goal BP <140/90 per JNC-8, < 130/80 per ACC/AHA guideline -BP not at goal, reportedly normal at home -comanaged with our pharmacist, business development sales executive, and malted milk mixer. -continue working on lifestyle modifications -continue Lisinopril 40 mg daily -continue Amlodipine 10mg daily. -continue Carvedilol 25 mg bid -continue Spironolactone 25 mg daily -continue hydralazine to 10 mg tid, decreased dose from 25 mg tid to 10 mg tid on 04/05/21. -pt was advised to check BP before taking hydralizine. hold if systolic BP <110 -requested 24 hour BP monitoring with malted milk mixer; check its status Proteinuria 08/17/2012 Backache 01/07/2012 Mood disorder 01/07/2012 Assessment & Plan (11/02/2024 9:04 AM EDT): - major depression - S provider: [facility] Psychiatrist Dr. Locke - continue mirtazapine and trazodone - treatment Hx: Lorazepam; antipsychotics Assessment & Plan (07/11/2024 1:09 PM EST): - major depression - S provider: [facility] Psychiatrist Dr. Locke - continue mirtazapine and trazodone - treatment Hx: Lorazepam; antipsychotics Assessment & Plan (03/07/2024 7:43 AM EDT): - major depression - S provider: [facility] Psychiatrist Dr. Chucky sauceda mirtazapine and trazodone - treatment Hx: Lorazepam; antipsychotics Assessment & Plan (09/04/2023 9:58 PM EDT): - major depression - S provider: [facility] Psychiatrist Dr. Chucky sauceda mirtazapine and trazodone - treatment Hx: Lorazepam; antipsychotics Assessment & Plan (02/22/2023 4:48 AM EDT): - major depression - S provider: [facility] Psychiatrist Dr. Chucky sauceda mirtazapine and trazodone - treatment Hx: Lorazepam; antipsychotics Assessment & Plan (11/17/2022 4:33 PM EDT): - major depression - [facility] provider: [facility] Psychiatrist Dr. 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 Davis here for a HDF He was recently admitted to [facility] with increased sob and treated for Congestive heart failure exacerbation. While in the hospital he was diuresed with IV Lasix. A few days after discharge he presented to the emergency room with c/o cough and sob, dx with COVID and treated conservatively as oxygen saturations was 99%. He then presented himself to [facility] for further treatment and was eventually admitted x 3 days for COVID, CHF, and PRITI. Upon discharge lisinopril and Aldactone were discontinued. Disease due to severe acute respiratory syndrome coronavirus 2 (SARS-CoV-2) 05/20/202308/15 Overview (08/18/2023): Problem added by Discern Expert Colon cancer screening 04/04/2023 04/04/202309/044 Gastroenteritis 08/26/2022 09/08/2022 Encounters Date Type Department Care Team Description 04/18/2025 Telephone [facility] [place] [address] Michelle Davis MD 04/14/2025 Results Follow-Up [facility] [place] [address] Michelle Davis MD Albumin, Random Urine W/Creatinine, Comprehensive Metabolic Panel, Lipid Panel with Reflex to Direct LDL, Hepatitis C Antibody with Reflex to HCV, RNA, Quantitative, Real-Time PCR 04/08/2025 2:00 PM EDT Office Visit [facility] [place] [address] Mel Duran MD Pectoralis muscle strain, initial encounter (Primary Dx) 04/08/2025 Telephone [facility] [place] [address] Mel Duran MD triage 04/08/2025 Travel 04/06/[address] [place] [address] Michelle Davis MD Durable Medical Equipment (DME Request: Boost) 03/18/2025 Travel 03/09/2025 3:00 PM EDT Clinical Support [address] [place] [address] Maddison Hu RN Type 2 diabetes mellitus with stage 3a chronic kidney disease, without long-term current use of insulin ([facility]) 03/09/2025 Travel 02/18/2025 [address] [place] [address] Maddison Hu RN [facility] 02/17/[address] [phone] Michelle Davis MD Medical equipment for Bp monitor 02/09/[address] [address] Michelle Davis MD Type 2 diabetes mellitus with other specified complication, unspecified whether retirement insulin use (CMS/HCC) 02/08/2025 Telephone [facility] [address] [place] [address] Michelle Davis MD eye 02/07/2025 11:00 AM EDT Office Visit [facility] [address] [place] [address] Michelle Davis MD Primary hypertension (Primary Dx); Ischemic heart disease; Heart failure with reduced ejection fraction ([facility]/HCC); Dyslipidemia; Type 2 diabetes mellitus with stage 3a chronic kidney disease, without long-term current use of insulin (CMS/HCC); Stage 3a chronic kidney disease ([facility]/HCC); Nocturia 02/07/2025 Travel 02/04/2025 Telephone [facility] [address] [place] [address] Michelle Davis MD CHART PREP from Last 3 Months [...] Description 05/10/2025 10:30 AM EST Office Visit [address] [address] Michelle Davis MD [address] [place] [address] 06/27/2025 11:30 AM EST Medication Management [address] [address] Duke Betancourt, PharmD [address] [place] [id number] Health Maintenance Due Date Last Done Comments CT Colonography 1949 FIT DNA/Cologuard 1950 FIT 1949 FOBT 1950 Sigmoidoscopy 1950 Dental X-Ray: Bitewings 11/07/2011 11/05/2010 Dental X-Ray: Full Mouth 11/06/2013 11/05/2010 Dental Prophylaxis 09/09/2016 03/11/2016, 0 11/24/2014, 03/16/2014, Additional history exists Dental Oral Exam 01/08/2020 07/09/2019, 02/2017, 12/19/2015, Additional history exists Eye Exam 02/01/2024 01/31/2023 RSV Patients and Patients Aged 60 years or older (1 - 1-dose 75+ series) 2024 COVID-19 Vaccine ( - 2024- season) 2025 01/14/2022, 06/14/2021, 08/31/2020, Additional history exists Influenza Vaccine (#1) 2025 4, 04/21/2023, 04/21/2023, Additional history exists Diabetes: Hemoglobin A1C 05/10/2025 025, 11/02/2024, 07/08/2024, Additional history exists Diabetes: Foot Exam 09/02/2025 09/02/2024, 09/04/2023, 09/04/2023, Additional history exists Alcohol/Substance Use Screening 11/02/2025 11/02/2024 SDOH Screening 11/02/2025 11/02/2024 Depression Screening 02/07/2026 02/07/2025, 02/08/20 Tobacco Screening 02/15/2026 02/15/2025 Lipid Panel 04/13/2026 04/13/2025, 10/15, 09/10/2023, Additional history exists DTaP/Tdap/Td Vaccines (3 - Td or Tdap) 11/12/2032 11/12/2022, 08/17/2012 Colonoscopy 04/28/2033 04/28/2023 Colorectal Cancer Screening 04/28/2033 Hepatitis B Vaccines Completed 06/15/2015, 05/03/2014, 09/27/2013 Pneumococcal Vaccine: 50+ Years Completed 03/03/2018, 12/08/2014, 08/17/2012 Zoster Vaccines Completed 05/31/2019, 02/15, 12/08/2014 Hepatitis C Screening Completed 04/13/2025 HIB Vaccines Aged Out No longer eligi [...] Blood Pressure 157/96( 025 1:14 PM EDT) Duke Muir, [place] Procedures Procedure Name Priority Date/Time Associated Diagnosis Comments HEPATITIS C AB W/REFL TO HCV RNA, QN, PCR Routine 04/13/2025 10:41 AM EDT Need for hepatitis C screening test LIPID PANEL WITH REFLEX TO DIRECT LDL Routine 04/13/2025 10:41 AM EDT Dyslipidemia COMPREHENSIVE METABOLIC PANEL Routine 04/13/2025 10:41 AM EDT Type 2 diabetes mellitus with stage 3a chronic kidney disease, without long-term current use of insulin (HCC) ALBUMIN, RANDOM URINE W/CREATININE Routine 04/13/2025 10:41 AM EDT Type 2 diabetes mellitus with stage 3a chronic kidney disease, without long-term current use of insulin (HCC) Primary hypertension POCT GLYCOSYLATED HEMOGLOBIN (HGB A1C) Routine 02/07/2025 11:08 AM EDT Type 2 diabetes mellitus with stage 3a chronic kidney disease, without long-term current use of insulin (CMS/HCC) POCT GLUCOSE Routine 02/07/2025 11:05 AM EDT Type 2 diabetes mellitus with stage 3a chronic kidney disease, without long-term current use of insulin (CMS/HCC) COLONOSCOPY Routine 04/28/2023 DIABETES EYE EXAM Routine 01/31/2023 PERIODIC ORAL EVALUATION - ESTABLISHED PATIENT Routine 07/09/2019 12:00 AM EST PROPHYLAXIS - ADULT Routine 03/11/2016 1 2:00 AM EDT PANORAMIC RADIOGRAPHIC IMAGE Routine 11/05/2010 12:00 AM EDT BITEWING - SINGLE RADIOGRAPHIC IMAGE Routine 11/05/2010 12:00 AM EDT from Last 3 Months or Most Recently Relevant to Health Maintenance Results * (ABNORMAL) Lipid Panel with Reflex to Direct LDL (04/13/2025 10:41 AM EDT) Triglycerides 115 <150 mg/dL [facility] Comment:Desirable Triglyceri de: less than 150 mg/dLBorderline High Triglyceride 150-199 mg/dLHigh Triglyceride: 200-499 mg/dLVery High Triglyceride: greater than or equal to 5OO mg/dL Cholesterol 124 <200 mg/dL [facility] Comment:Desirable Cholestero l: less than 200 mg/dLBorderline High Cholesterol: 200-239 mg/dLHigh Cholesterol: greater than 239 mg/dL LDL Cholesterol Calculated 61 <100 mg/dL [facility] Comment:Desirable LDL: less than 100 mg/dLNear Optimal/Above Optimal LDL: 110- 129 mg/dLBorderline High LDL: 130-159 mg/dLHigh LDL: 160-189 mg/dLVery High LDL: greater than or equal to 190 mg/dL HDL Cholesterol 40(L) >40 mg/dL [facility] Comment:Desirable HDL: great er than 40 mg/dL Note: This HDL assay may give artificially low results in patients with liver disease. Blood 04/13/2025 10:4 1 AM EDT 04/13/2025 1:13 PM EDT us Michelle Davis MD LAB BLOOD ORDERABLES Final Resul t [facility] [address] [place] [phone] * (ABNORMAL) Albumin, Random Urine W/Creatinine (04/13/2025 10:41 AM EDT) Creatinine, Urine 73.78 mg/dL [facility] Microalbumin Urine 163.0 mg/L H [facility] Microalbum Creatinine Ratio Ur 220.9(H) <30 ug/mg cr [facility] Comment:Albumin/Creatinine R atio Reference Ranges: Normal: < 30 ug/mg creatinine Microalbuminuria: 30 - 300 ug/mg creatinineClinical Albuminuria: > 300 ug/mg creatinine Urine 04/13/2025 10:4 1 AM EDT 04/13/2025 11:21 AM EDT us Michelle Davis MD LAB URINE ORDERABLES Final Resul t Performing Organization Address City/[facility]/ZIP Co de Phone Number [facility] [address] [place] [phone] * Hepatitis C Antibody with Reflex to HCV, RNA, Quantitative, Real-Time PCR (04/13/2025 10:41 AM EDT) Hepatitis C Antibody Nonreactive Nonreactive [facility] Comment:Antibodies to HCV no t detected; does not exclude early acuteHCV infection. Blood Venous blood specimen / Unknown 04/13/2025 10:41 AM EDT 04/13/2025 1:13 PM EDT us Michelle Davis MD LAB BLOOD ORDERABLES Final Resul t Performing Organization Address City/[facility]/ZIP Co de Phone Number [facility] [address] [place] [phone] * (ABNORMAL) Comprehensive Metabolic Panel (04/13/2025 10:41 AM EDT) Sodium 140 135 - 145 mmol/L [facility] Potassium 4.1 3.3 - 5.1 mmol/L [facility] Chloride 106 96 - 108 mmol/L [facility] Carbon Dioxide 29 22 - 29 mmol/L [facility] Anion Gap 9(L) 12 - 20 [facility] Urea Nitrogen (BUN) 24(H) 9 - 16 mg/dL [facility] Creatinine, Serum 1.22 0.5 - 1.4 mg/dL [facility] Estimated Glomerular Filt Rate 58 [facility] Comment:Chronic Kidney Disea se: Estimated GFR < 60 mL/min/1.01c2Fwgxtt Kidney Disease: Estimated GFR < 15 mL/min/1.73m2 Glucose 147(H) 60 - 115 mg/dL [facility] Calcium 9.3 8.4 - 10.2 mg/dL [facility] Bilirubin, Total 0.4 0.0 - 1.0 mg/dL [facility] Aspartate Amino Transferase 27 5 - 37 U/L [facility] Alanine Aminotransferase 35 0 - 40 U/L [facility] Total Protein 7.6 6.5 - 8.0 g/dL [facility] Albumin Level 4.0 3.5 - 5.0 g/dL [facility] Alkaline Phosphatase 97 39 - 117 U/L [facility] Blood Venous blood specimen / Unknown 04/13/2025 10:41 AM EDT 04/13/2025 1:13 PM EDT Michelle Davis MD LAB BLOOD ORDERABLES Final Resul t Performing Organization Address City/State/[facility] Co de Phone Number [facility] [address] [place] [phone] * (ABNORMAL) POCT glycosylated hemoglobin (Hgb A1c) (02/07/2025 11:08 AM EDT) [facility] Hemoglobin A1C 9.0(A) 4.0 - 5.7 % QC Media Lot # [id number] Lot# Expiration Date [id number] Blood Capillary blood specimen / Unknown 02/07/2025 11:08 AM EDT Michelle Davis MD POINT OF CARE TEST ENTER/EDIT OR DERABLES Final Result * (ABNORMAL) POCT glucose manually resulted (02/07/2025 11:05 AM EDT) Pathologist [facility] Glucose Blood, POC 326(A) 60 - 200 mg/dL QC Media Lot # [id number] Lot# Expiration Date ,[id number] Blood Capillary blood specimen / Unknown 02/07/2025 11:05 AM EDT Michelle Davis MD POINT OF CARE TEST ENTER/EDIT OR DERABLES Final Result * Colonoscopy (04/28/2023) Colonoscopy Normal Normal Historical Provider HEALTH MAINTENANCE Edited Result - Final * Diabetes Eye Exam (01/31/2023) Eye Exam Normal Normal, BIRADS 0 , BIRADS 1 , BIRADS 2, BIRADS 3 , BIRADS 4+ Historical Provider HEALTH MAINTENANCE Final Result from Last 3 Months or Most Recently Relevant to Health Maintenance Insurance [facility] LONG TERM OPTIONS (O D-SNP) [facility] Care Teams Rapid Extractor Operator Relationship Specialty Start Date End Date Michelle Davis MD [address] [place] [address] PCP - General Family Medicine 04/15/12 Duke Betancourt, PharmD [address] [place] [phone] Pharmacist Pharmacy 03/18/25
--- OUTSIDE RECORDS SUMMARY | 2025-05-04 23:48 | XMS_ITS | Encounter Summary ---
Author Organization [facility], Address [address] [place] [address] Phone Care Team Providers Care Spring Fitter Name Role Phone Michelle Zhang MD Primary Care Provider [phone] Encounter Details Date Type Department Care Team (Late st Contact Info) Description 02/03/2023 Documentation Only [facility] [address] [place] [address] Abel Ji DO [address] [place] [address] Social History Tobacco Use Types [...] Visit [facility] [address] [place] [address] Abel Ji DO [address] [place] [address] documented as of this encounter Visit Diagnoses Not on filedocumented in this encounter Care Teams Spring Fitter Relationship Specialty Start Date End Date Michelle Zhang MD PCP - General 04/20/19 documented as of this encounter
--- OUTSIDE RECORDS SUMMARY | 2025-05-04 23:48 | XMS_ITS | Clinical Summary ---
Author Organization [facility] [place], Address [address] [place] [address] [place] [address] Phone Care Team Providers Care Towboat Engineer Name Role Phone Michelle Zhang MD Primary Care Provider Allergies No known active allergies Medications aspirin [...] Visit [facility] [place], [address] [place] [address] Abel Ji DO [address] [place] [place] [address] Health Maintenance Due Date Last Done [...] EST) Hemoglobin A1C 7.1(H) (4.0-5.6) % [facility] Comment: MONITORING: In known diabetic patients, hemoglobin A1c targets should be discussed with health care provider. DIAGNOSTIC USE: The [place] [employer] (ADA) and the World Health [...] Supplement 1 Testing performed or reported by [facility] Reference Proenza Schouer, a Service of [facility], [address] [place] [address] Guerita Jorge MD, Food Service Technician [facility]# [id number] Blood specimen (specimen) Venous blood / Unknown 08/15/2022 2:13 PM EST 08/15/2022 2:17 PM EST us Abel Ji DO LAB BLOOD ORDERABLES Final Resu lt [facility] from Last 3 Months or Most Recently Relevant to Health Maintenance Insurance [facility] Dual SNP ([id number]) Care Teams Towboat Engineer Relationship Specialty Start Date End Date Michelle Zhang MD PCP - General 04/20/19
--- OUTSIDE RECORDS SUMMARY | 2025-05-04 23:48 | XMS_ITS | Encounter Summary ---
Author Organization [facility] Address [address] [place] [address] Phone Care Team Providers Care Sports Health Club Membership Advisors Name Role Phone Michelle Zhang MD Primary Care Provider [phone] Encounter Details Date Type Department Care Team (Late st Contact Info) Description 12/24/2023 Documentation Only [facility] [address] [place] [address] Zahira Cazares [address] [place] [address] Social History Tobacco Use Types [...] on file documented as of this encounter Functional Status documented as of this encounter Plan of Treatment Upcoming Encounters Date Type Department Care Team (Late st Contact Info) Description 06/30/2025 1:45 PM EST Office Visit [facility] [address] [place] [address] Abel Ji DO [address] [place] [address] [place] [address] documented as of this encounter Visit Diagnoses Not on filedocumented in this encounter Care Teams Sports Health Club Membership Advisors Relationship Specialty Start Date End Date Michelle Zhang MD PCP - General 04/20/19 documented as of this encounter
--- OUTSIDE RECORDS SUMMARY | 2025-05-04 23:48 | XMS_ITS | Encounter Summary ---
Author Organization [employer] Address [address] [place] [address] 7 [place] [address] Care Team Providers Care Bingo Caller Name Role Phone Michelle Zhang MD Primary Care Provider [phone] Duke Betancourt PharmD Unavailable [phone] Duke Betancourt PharmD Unavailable [phone] Reason for Referral * Consultation (Routine) - Closed Specialty Diagnoses / Procedures Referred By Astrid lal Referred To Contact Vascular Surgery Diagnoses PAD (peripheral artery disease) Michelle Zhang MD [address] [place] [address] Phone: tel: fax: [facility] Referral ID Status Reason Start Date Expiration Date V isits Requested Visits Authorized [id number] Closed Specialty Services Required 07/15/2024 07/15/2025 1 1 Encounter Details Date Type Department Care Team (Late st Contact Info) Description 07/15/2024 Orders Only [facility] [address] [place] [address] Michelle Zhang MD [address] [place] [address] PAD (peripheral artery disease) (CMS/HCC) [...] 05/10/2025 10:30 AM EST Office Visit [facility] [address] [place] [address] Michelle Zhang MD [address] [place] [address] 06/27/2025 11:30 AM EST Medication Management [facility] [address] [place] [address] Duke Betancourt, PharmD [address] [place] [address] Scheduled Referrals Name Type Priority Associated Diagnoses Orde r Schedule Referral to Vascular Surgery Outpatient Referral Routine PAD (peripheral artery disease) ([facility]) Expected: 07/15/2024 (Approximate), Expires: 07/15/2025 documented as [...] PM EST Narrative 08/13/2024 3:41 PM EST [place] [address] XRay Report Signed Patient: Johny Mansfield MR#: [id number] : 1950 Acct:[id number] Age/Sex: 73 / M ADM Date: 08/13/24 Loc: .ED Attending Dr: Ordering Physician: Zuleyma Ann Date of Service: 08/13/24 Procedure(s): XR hand wrist LT Accession Number(s): [id number] cc: Zuleyma Ann; Michelle Zhang MD EXAMINATION: [...] 08/13/24 1538 DD/ 1440 TD/TT: 08/13/24 1505 Catering And Events Manager: Procedure Note Donotuseinterpreter, Image - 08/13/[address] [address] XRay Report Signed Patient: Johny MansfieldMR#: [id number] : 1950Acct:[id number] Age/Sex: 73 / MADM Date: 08/13/24 Loc: .ED Attending Dr: Ordering Physician: Zuleyma Ann Date of Service: 08/13/24 Procedure(s): XR hand wrist LT Accession Number(s): [id number] cc: Zuleyma Ann; Michelle Zhang MD EXAMINATION: [...] 08/13/24 1538 DD/ 1440 TD/TT: 08/13/24 1505 Catering And Events Manager: us [facility] External Provider IMG XR PROCEDURES Final Result * XR Knee 3 Views Right (08/13/2024 2:40 PM EST) Anatomical Region Laterality Modality Lower Extremities, Knee Right Radiogra phic Imaging 08/13/2024 2:40 PM EST Narrative 08/13/2024 3:38 PM EST [address] [address] XRay Report Signed Patient: Johny Mansfield MR#: [id number] : 1950 Acct:[id number] Age/Sex: 73 / M ADM Date: 08/13/24 Loc: HO.ED Attending Dr: Ordering Physician: Zuleyma Ann Date of Service: 08/13/24 Procedure(s): XR knee RT 3V Accession Number(s): [id number] cc: Zuleyma Ann; Michelle Zhang MD EXAMINATION: [...] 08/13/24 1535 DD/ 1440 TD/TT: 08/13/24 1505 Catering And Events Manager: Procedure Note Donotlizinterpreter, Image - 08/13/[address] [address] XRay Report Signed Patient: Johny MansfieldMR#: [id number] : 1950Acct:[id number] Age/Sex: 73 / MADM Date: 08/13/24 Loc: HO.ED Attending Dr: Ordering Physician: Zuleyma Ann Date of Service: 08/13/24 Procedure(s): XR knee RT 3V Accession Number(s): [id number] cc: Zuleyma Ann; Michelle Zhang MD EXAMINATION: [...] by: Ga Hurt MD 08/13/2024 03:35 PM [facility] Dictated By: Ga Hurt MD Signed By: <Electronically signed by Ga Hurt MD in OV> 08/13/24 1535 DD/ 1440 TD/TT: 08/13/24 1505 Catering And Events Manager: [facility] External Provider IMG XR PROCEDURES Final Result documented in this encounter Visit Diagnoses Diagnosis PAD (peripheral artery disease)- Primary Unspecified peripheral vascular disease documented in this encounter Additional Health Concerns Assessment Noted Time PHQ-9 Depression Total Score: 0 03/01/20 24 10:05 AM EDT documented as of this encounter Care Teams Bingo Caller Relationship Specialty Start Date End Date Michelle Zhang MD [address] [place] [address] PCP - General Family Medicine 04/15/12 Duke Betancourt PharmD [address] [place] [address] Pharmacist Internal Medicine 08/26/22 03/17/25 Duke Betancourt PharmD [address] [place] [address] Pharmacist Pharmacy 03/18/25 documented as of this encounter
--- OUTSIDE RECORDS SUMMARY | 2025-05-04 23:48 | XMS_ITS | Encounter Summary ---
Author Organization [employer] Address [address] [facility] 7t [place] [address] Care Team Providers Care Printing Screen Assembler Name Role Phone Michelle Zhang MD Primary Care Provider [phone] Duke Betancourt PharmD Unavailable [phone] Duke Betancourt PharmD Unavailable [phone] Encounter Details Date Type Department Care Team (Late st Contact Info) Description 11/21/2023 Orders Only [facility] [address] [place], [place] [phone] Michelle Zhang MD [address] [place] [address] Bradycardia (Primary Dx) Social History Tobacco Use [...] Description 05/10/2025 10:30 AM EST Office Visit [address] [address] Michelle Zhang MD [address] [place] [address] 06/27/2025 11:30 AM EST Medication Management [address] [address] Duke Betancourt PharmD [address] [place] [address] documented as of this encounter Goals Goal [...] documented as of this encounter Care Teams Printing Screen Assembler Relationship Specialty Start Date End Date Michelle Zhang MD [address] [place] [address] PCP - General Family Medicine 04/15/12 Duke Betancourt PharmD [address] [place] [address] Pharmacist Internal Medicine 08/26/22 03/17/25 Duke Betancourt, PharmD [address] [place] [address] Pharmacist Pharmacy 03/18/25 documented as of this encounter
--- OUTSIDE RECORDS SUMMARY | 2025-05-04 23:48 | XMS_ITS | Encounter Summary ---
Author Organization [facility], Address [address] [place] [address] Phone Care Team Providers Care Power Digger Operator Name Role Phone Michelle Zhang MD Primary Care Provider [phone] Reason for Visit * Reason Comments Med Refill Encounter Details Date Type Department Care Team (Late Contact Info) Description 10/28/2022 Refill [facility] [address] [place] [phone] Abel Ji DO [address] [place] [address] Social History Tobacco Use Types [...] Visit [facility] [place], [address] [place] [address] Abel Ji DO [address] [place] [address] documented as of this encounter Visit Diagnoses Not on filedocumented in this encounter Care Teams Power Digger Operator Relationship Specialty Start Date End Date Michelle Zhang MD PCP - General 04/20/19 documented as of this encounter
--- OUTSIDE RECORDS SUMMARY | 2025-05-04 23:48 | XMS_ITS | Encounter Summary ---
Author Organization [employer] Address [address] [facility] 7t [place] [address] Care Team Providers Care Senior Product Manager Name Role Phone Michelle Zhang MD Primary Care Provider [phone] Duke Betancourt PharmD Unavailable [phone] Encounter Details Date Type Department Care Team (Latest Contact Info) Description 04/14/2025 Results Follow-Up [facility] [address] [place], [place] [phone] Michelle Zhang MD [address] [place] [address] Albumin, Random Urine W/Creatinine, Comprehensive Metabolic Panel, Lipid Panel with Reflex to Direct LDL, Hepatitis C Antibody with Reflex to HCV, RNA, Quantitative, Real-Time PCR Social History Tobacco Use Types Packs/Day Years [...] Description 05/10/2025 10:30 AM EST Office Visit [address] [address] Michelle Zhang MD [address] [place] [address] 06/27/2025 11:30 AM EST Medication Management [address] [address] Duke Betancourt PharmD [address] [place] [address] documented as of this encounter Goals Goal [...] documented as of this encounter Care Teams Senior Product Manager Relationship Specialty Start Date End Date Michelle Zhang MD [address] [place] [address] PCP - General Family Medicine 04/15/12 Duke Betancourt, SanjayD [address] [place] [address] Pharmacist Pharmacy 03/18/25 documented as of this encounter
--- OUTSIDE RECORDS SUMMARY | 2025-05-04 23:48 | XMS_ITS | Encounter Summary ---
Author Organization [facility] [place], Address [address] [place] [address] Phone Care Team Providers Care Paradichlorobenzene Tender Name Role Phone Michelle Zhang MD Primary Care Provider [phone] Encounter Details Date Type Department Care Team (Late st Contact Info) Description 02/03/2023 Documentation Only [facility] [address] [place] [address] Abel Ji DO [address] [facility] [place] [address] Social History Tobacco Use Types [...] Visit [facility] [address] [place] [address] Abel Ji DO [address] [facility] [place] [address] documented as of this encounter Visit Diagnoses Not on filedocumented in this encounter Care Teams Paradichlorobenzene Tender Relationship Specialty Start Date End Date Michelle Zhang MD PCP - General 04/20/19 documented as of this encounter
--- OUTSIDE RECORDS SUMMARY | 2025-05-04 23:49 | XMS_ITS | Encounter Summary ---
Author Organization [employer] Address [address] [place] [address] 7 [place] [address] Care Team Providers Care Schedule Hanger Name Role Phone Michelle Zhang MD Primary Care Provider [phone] Duke Beatncourt PharmD Unavailable [phone] Duke Betancourt PharmD Unavailable [phone] Reason for Visit * Reason Comments Med Refill Encounter Details Date Type Department Care Team (Late Contact Info) Description 02/16/2023 Refill [facility] [address] [place] [address] Michelle Zhang MD [address] [place] [address] [phone] Social History Tobacco Use Types Packs/Day Years [...] Description 05/10/2025 10:30 AM EST Office Visit [facility] [address] [place] [phone] Michelle Zhang MD [address] [facility] [place] [address] 06/27/2025 11:30 AM EST Medication Management [facility] [address] [facility] [place] [address] Duke Betancourt, Wolf [address] [place] [address] documented as of this encounter Goals Goal [...] documented as of this encounter Care Teams Schedule Hanger Relationship Specialty Start Date End Date Michelle Zhang MD [address] [place] [address] PCP - General Family Medicine 04/15/12 Duke Betancourt, PharmD [address] [place] [address] Pharmacist Internal Medicine 08/26/22 03/17/25 Duke Betancourt PharmD [address] [place] [address] Pharmacist Pharmacy 03/18/25 documented as of this encounter
--- OUTSIDE RECORDS SUMMARY | 2025-05-04 23:49 | XMS_ITS | Encounter Summary ---
Author Organization [employer] Address [address] [place] [address] [place] [address] Care Team Providers Care Professor Of Environmental Studies Name Role Phone Michelle Zhang MD Primary Care Provider [phone] Duke Betancourt PharmD Unavailable [phone] Duke Betancourt PharmD Unavailable [phone] Encounter Details Date Type Department Care Team (Late Contact Info) Description 11/20/2022 [facility] Exent Information Management [address] [place] [address] Michelle Zhang MD [address] [place] [address] Social History Tobacco Use Types Packs/Day Years [...] Upcoming Encounters Date Type Department Care Team ([facility] Contact Info) Description 05/10/2025 10:30 AM EST Office Visit [facility] [place] [address] [place] [address] 06/27/2025 11:30 AM EST Medication Management [facility] [address] [facility] [place] [address] Duke Betancourt, PharmKomal [facility] [place] [address] documented as of this encounter Goals Goal [...] documented as of this encounter Care Teams Professor Of Environmental Studies Relationship Specialty Start Date End Date Michelle Zhang MD [facility] [place] [address] PCP - General Family Medicine 04/15/12 Duke Betancourt, PharmD [facility] [place] [address] Pharmacist Internal Medicine 08/26/22 03/17/25 Duke Betancourt PharmD [address] [place], [place] [address]gerry [place] [address] Pharmacist Pharmacy 03/18/25 documented as of this encounter
--- OUTSIDE RECORDS SUMMARY | 2025-05-04 23:49 | XMS_ITS | Encounter Summary ---
Author Organization [facility] [place], Address [address] [place] [address] Phone Care Team Providers Care Jacket Changer Name Role Phone Michelle Zhang MD Primary Care Provider [phone] Encounter Details Date Type Department Care Team (Late st Contact Info) Description 01/04/2025 Documentation Only [facility] [address] [place] [address] [place] [address] [place] [address] Social History Tobacco Use Types [...] Visit [facility] [address] [place] [address] Abel Ji DO [address] [place] [address] [place] [address] documented as of this encounter Visit Diagnoses Not on filedocumented in this encounter Care Teams Jacket Changer Relationship Specialty Start Date End Date Michelle Zhang MD PCP - General 04/20/19 documented as of this encounter
--- OUTSIDE RECORDS SUMMARY | 2025-05-04 23:49 | XMS_ITS | Encounter Summary ---
Author Organization [employer] Address [address] [place] [address] 7 [place] [address] Care Team Providers Care Boiler Service Technician Name Role Phone Michelle Zhang MD Primary Care Provider [phone] Duke Betancourt PharmD Unavailable [phone] Duke Betancourt PharmD Unavailable [phone] Reason for Visit * Reason Onset Date Comments Reschedule 05/20/2023 Encounter Details Date Type Department Care Team (Late st Contact Info) Description 05/20/2023 Telephone [facility] MED[facility]INE [address] [place], [place] [phone] Michelle Zhang MD [address] [place], [place] [phone] Reschedule Social History Tobacco Use Types Packs/Day [...] - 05/20/2023 2:08 PM EST Tc from [place] requesting r/s HDF appt, pt is getting [facility] today [facility] documented in this encounter Plan of Treatment Upcoming Encounters Date Type Department Care Team (Late st Contact Info) Description 05/10/2025 10:30 AM EST Office Visit [facility] [address] [place] [phone] Michelle Zhang MD [address] [place] [address] 06/27/2025 11:30 AM EST Medication Management [facility] [address] [place] [address] Duke Betancourt, PharmD [address] [place] [address] documented as of this encounter Goals Goal [...] documented as of this encounter Care Teams Boiler Service Technician Relationship Specialty Start Date End Date Michelle Zhang MD [address] [place] [address] PCP - General Family Medicine 04/15/12 Duke Betancourt, SanjayD [address] [place] [address] Pharmacist Internal Medicine 08/26/22 03/17/25 Duke Betancourt, Wolf [address] [place] [address] Pharmacist Pharmacy 03/18/25 documented as of this encounter
--- OUTSIDE RECORDS SUMMARY | 2025-05-04 23:49 | XMS_ITS | Encounter Summary ---
Author Organization [employer] Address [address] [place] [address] 7 [place] [address] Care Team Providers Care Community Service Manager Name Role Phone Michelle Zhang MD Primary Care Provider [phone] Duke Betancourt PharmD Unavailable [phone] Duke Betancourt PharmD Unavailable [phone] Reason for Visit * Reason Onset Date Comments Durable Medical Equipment 03/28/2023 Encounter Details Date Type Department Care Team (Late st Contact Info) Description 03/28/2023 Telephone [facility] MEDICINE [address] [place], [place] [phone] Michelle Zhang MD [address] [place], [place] [phone] Durable Medical Equipment Social History Tobacco Use [...] Description 05/10/2025 10:30 AM EST Office Visit [facility] MED[facility]INE [address] [place] [phone] Michelle Zhang MD [address] [place] [address] 06/27/2025 11:30 AM EST Medication Management [facility] [address] [place] [address] Duke Betancourt, PharmD [address] [place] [address] documented as of this encounter Goals Goal [...] documented as of this encounter Care Teams Community Service Manager Relationship Specialty Start Date End Date Michelle Zhang MD [address] [place] [address] PCP - General Family Medicine 04/15/12 Duke Betancourt, PharmD [address] [place] [address] Pharmacist Internal Medicine 08/26/22 03/17/25 Duke Betancourt, SanjayD [address] [place] [address] Pharmacist Pharmacy 03/18/25 documented as of this encounter
--- OUTSIDE RECORDS SUMMARY | 2025-05-04 23:49 | XMS_ITS | Encounter Summary ---
Author Organization [employer] Address [address] [place] [address] 7t [place] [address] Care Team Providers Care Meter Tester Polyphase Name Role Phone Michelle Zhang MD Primary Care Provider [phone] Duke Betancourt PharmD Unavailable [phone] Duke Betancourt PharmD Unavailable [phone] Reason for Visit * Reason Onset Date Comments glucose meter 11/18/2022 Encounter Details Date Type Department Care Team (Late st Contact Info) Description 11/18/[address] [facility] MEDICINE [address] [place], [place] [phone] Michelle Zhang MD [address] [place], [place] [phone] glucose meter Social History Tobacco Use Types [...] Miscellaneous Notes * Telephone Encounter - Shelbie Raknin - 11/18/2022 2:08 PM EDT Tc from [facility] requesting a new glucose meter due to old one not working . documented in this encounter Plan of Treatment Upcoming Encounters Date Type Department Care Team (Late st Contact Info) Description 05/10/2025 10:30 AM EST Office Visit [address] [address] Michelle Zhang MD [address] [place] [address] 06/27/2025 11:30 AM EST Medication Management [address] [phone] Duke Betancourt PharmD [address] [place] [phone] documented as of this encounter Goals Goal [...] documented as of this encounter Care Teams Meter Tester Polyphase Relationship Specialty Start Date End Date Michelle Zhang MD [address] [place] [address] [phone] PCP - General Family Medicine 04/15/12 Duke Betancourt PharmD [address] [place] [address] [phone] Pharmacist Internal Medicine 08/26/22 03/17/25 Duke Betancourt PharmD [address] [place] [address] [phone] Pharmacist Pharmacy 03/18/25 documented as of this encounter
--- OUTSIDE RECORDS SUMMARY | 2025-05-04 23:49 | XMS_ITS | Data Portability ---
Author Organization [facility] [facility], [employer] [facility] Address [address] [place] [phone] Care Team Providers Care Wealth Management Advisor Name Role Phone HIM TERRELL OTHER Assessment Encounter Date Assessment Date Assessment LastModified by Organization Details LastModified Time 11/03/2024 11/03/2024 As noted, we were called to see this patient regarding concerns of Cough, itchy eyes, and runny nose. Evaluation in the field was performed by my medical language specialist colleague, as noted above, I provided real-time [...] QL IA, respiratory specimen 2024 025 [facility], [address] [place] [address], [phone] 11:55:22 rapid flu (A+B) 2024 025 [facility], [address] [place] [address], [phone] 11:55:39 Referral None recorded. Procedures None recorded. Surgeries None recorded. Imaging None recorded. Medication Orders Flonase Allergy Relief 50 mcg/actuati on nasal spray,suspe nsion 2024 [facility], [address] [place] [address], [phone], 15:07:34 benzonatate 100 mg capsule 2024 [email or web address] Not available 10:28:28 Patient TargetsNo targets recorded. Patient InstructionsNo instructions recorded. Reason for Referral None Reported. Results Created Date Observation Date Name Description Value Unit Range Abnormal Flag Note LastModifiedBy Organization Detail LastModifiedTime 11/04/1911/03/2024 rapid flu (A+B) Flu negati ve Not Available [facility] ed [address] [place] [address], [id number] 11/03/2024 10:50:32 11/04/1911/03/2024 rapid SARS CoV 2 Ag, QL IA, respi rator y speci men rapid SARS CoV 2 Ag, QL IA, respiratory specimen positi ve Not Available [facility] ed [address] [place] [address], [phone] 11/03/2024 10:50:31 Result Notes None recorded. Medical [...] ICD10 Code Diagnosis IMO Codes Diagnosis Note [phone] Zach Melgoza MD Main - instED [address] [place] [phone] 11/03/2024 10:13:51 11/03/2024 18:27:20 Acute COVID-19 [id number] U07.6 [id number] Health Concerns Section Related Observation LastModified by Organization Detai ls LastModified Time None Recorded Concern Status LastModified by Organization Details LastModified Time None Recorded Advance Directives Directive None Recorded Payers Insurance Date Sequence Insurance Name Policy Number Policy Hodges Covered Member ID Hodges Member ID Guarantor Name 11/03/2024 1 [facility] - DOS ON OR AFTER 2022 - DUAL ELIGIBLE - GROUP HOME OPTIONS AND ONE CARE (MEDICARE REPLACEMENT/AD VANTAGE - HMO) [facility] [id number] [facility] Notes Date Note Type Note Provider Name and Address Organization Details Recorded Time 11/03/2024 text/html ROS as noted in the HPI HPI: No montessori program director needed as this journalists and other writers speaks Mongolian. Call returned to [facility] via [employer] Pattern Shop Supervisor as this journalists and other writers is remote to triage below. Spoke with [...] at 11/03/2024 - 09:11 Comments: Reviewed HPI Seed Production Field Supervisor Organization Information for August Hernandes Business Legal Name: [employer] Address: [address] [place] [address], Web Project Manager: Robert HAAS No.: [id number] Seed Production Field Supervisor POC Test Results from August Hernandes Rapid COVID antigen (10:06:01) COVID: + Attachments uploaded as part of this test result can be found under Documents section. Rapid influenza antigen (10::02) Flu: - Attachments uploaded as part of this test result can be found under Documents section. ...................... ...................... ...................... ...................... ...................... ...................... ......... Seed Production Field Supervisor Note From August Hernandes: Encountered patient seated upright and conscious with family present. Patient reports since last night, a dry cough, runny nose and itchy eyes. Patient denies chest pain, shortness of breath and fevers. POC Covid swab positive, flu negative; [facility] notified. Skin warm, dry and of appropriate color for ethnicity. Head and neck free of trauma and edema. PERRL. -JVD. Breath sounds present, clear and equal bilaterally. Abdomen soft, non-tender and non-distended. Extremities free of trauma and edema. [facility] contacted: reports patient is not a candidate [...] he is comfortable with remaining home today. [facility] Lab Orders: rapid SARS CoV 2 Ag, QL IA, respiratory specimen: Performed rapid flu (A+B): Performed ...................... ...................... ...................... ...................... ...................... ...................... ......... [facility] Consulted: Zach Melgoza ...................... ...................... ...................... ...................... ...................... ...................... ......... Disposition: Fulfilled Zach Melgoza MD [address] [place] [address],[address] [facility], [place], [phone], GIL LEGER 11/03/2024 11:27:09
--- OUTSIDE RECORDS SUMMARY | 2025-05-04 23:49 | XMS_ITS | Encounter Summary ---
Author Organization [employer] Address [address] [place] [address] 7t [place] [address] Care Team Providers Care Seam Sewer Name Role Phone Michelle Zhang MD Primary Care Provider [phone] Duke Betancourt PharmD Unavailable [phone] Duke Betancourt PharmD Unavailable [phone] Reason for Visit * Reason Onset Date Comments Appointment Request 09/03/2022 Encounter Details Date Type Department Care Team (Late st Contact Info) Description 09/03/2022 Telephone [facility] MEDICINE [address] [place], [place] [phone] Michelle Zhang MD [address] [place], [place] [phone] Appointment Request Social History Tobacco Use Types [...] for 09/09/2022 if possible. Please contact pt [phone] documented in this encounter Plan of Treatment Upcoming Encounters Date Type Department Care Team (Late st Contact Info) Description 05/10/2025 10:30 AM EST Office Visit [address] [address] Michelle Zhang MD [address] [place] [address] 06/27/2025 11:30 AM EST Medication Management [address] [address] Duke Betancourt, PharmKomal [address] [place] [phone] documented as of this encounter Goals Goal Patient Goal Type Associated Problems Recent Progress Patient-Stated? Author Blood Pressure < 140/90 Blood Pressure 157/96( 025 1:14 PM EDT) No Duke Betancourt, PharmD documented as of this encounter Visit Diagnoses Not on filedocumented in this encounter Care Teams Seam Sewer Relationship Specialty Start Date End Date Michelle Zhang MD [address] [place] [address] PCP - General Family Medicine 04/15/12 Duke Betancourt, PharmD [address] [place] [phone] Pharmacist Internal Medicine 08/26/22 03/17/25 Duke Betancourt PharmD [address] [place] [phone] Pharmacist Pharmacy 03/18/25 documented as of this encounter
--- OUTSIDE RECORDS SUMMARY | 2025-05-04 23:49 | XMS_ITS | Encounter Summary ---
Author Organization [employer] Address [address] [place] [address] 7t [place] [address] Care Team Providers Care Tenter Name Role Phone Michelle Zhang MD Primary Care Provider [phone] Duke Betancourt PharmD Unavailable [phone] Duke Betancourt PharmD Unavailable [phone] Encounter Details Date Type Department Care Team (Late st Contact Info) Description 10/15/2024 Telephone [facility] MEDICINE [address] [place], [place] [phone] Michelle Zhang MD [address] [place], [place] [phone] Social History Tobacco Use Types Packs/Day Years [...] - 10/15/2024 8:22 AM EDT Tc from [place] stating was sick yesterday and overslept. Pt was unable to attend the appointment because she's providing transportation. Appointment for 10/14 was rescheduled for 11/02 at 11:15 am. documented in this encounter Plan of Treatment Upcoming Encounters Date Type Department Care Team (Late st Contact Info) Description 05/10/2025 10:30 AM EST Office Visit [facility] MEDICINE [address] [place] [phone] Michelle Zhang MD [address] [place] [address] 06/27/2025 11:30 AM EST Medication Management [facility] [address] [place] [address] Duke Betancourt, PharmD [address] [place] [address] documented as of this encounter Goals Goal [...] documented as of this encounter Care Teams Tenter Relationship Specialty Start Date End Date Michelle Zhang MD [address] [place] [address] PCP - General Family Medicine 04/15/12 Duke Betancourt, PharmD [address] [place] [address] Pharmacist Internal Medicine 08/26/22 03/17/25 Duke Betancourt, PharmD [address] [place] [address] Pharmacist Pharmacy 03/18/25 documented as of this encounter
--- OUTSIDE RECORDS SUMMARY | 2025-05-04 23:49 | XMS_ITS | Encounter Summary ---
Author Organization [employer] Address [address] [place] [address] 7 [place] [address] Care Team Providers Care Investment Banking Manager Name Role Phone Michelle Zhang MD Primary Care Provider [phone] Duke Betancourt PharmD Unavailable [phone] Duke Betancourt PharmD Unavailable [phone] Reason for Visit * Reason Onset Date Comments Referral 05/17/2022 Encounter Details Date Type Department Care Team (Late st Contact Info) Description 05/17/[address] [facility] MEDICINE [address] [place], [place] [phone] Michelle Zhang MD [address] [place], [place] [phone] Referral Social History Tobacco Use Types Packs/Day [...] it after since he will be in [place] for the holidays. Please contact pt at [phone] * Telephone Encounter - Raquel Jennings RN - 05/21/2022 12:13 PM EST Pt's EC came in to ask ab out drops, let FD know about messages in chart see today's encounter. * Telephone Encounter - Raquel Jennings RN - 05/21/2022 11:18 AM EST Telephone call to pt in regards to asking if his stable hand can rx the drops. Call not answered, left vm to call back nurses when able. * Telephone Encounter - Wendy Motta RN - 05/20/2022 12:32 PM EST Pt's spouse walked in requesting eye drops for dry eye. Queued eye drops that might be covered by insurance per [facility] (many not covered). Please review and advise. * Telephone Encounter - Arti Pruitt RN - 05/17/2022 10:43 AM EST LVM to return call to [facility] triage line. * Telephone Encounter [...] Murrieta is on hippa Please contact in Armenian at [phone] documented in this encounter Plan of Treatment Upcoming Encounters Date Type Department Care Team (Late st Contact Info) Description 05/10/2025 10:30 AM EST Office Visit [address] [address] Michelle Zhang MD [address] [place] [address] 06/27/2025 11:30 AM EST Medication Management [address] [address] Duke Betancourt, Wolf [address] [place] [address] documented as of this encounter Visit Diagnoses Not on filedocumented in this encounter Care Teams Investment Banking Manager Relationship Specialty Start Date End Date Michelle Zhang MD [address] [place] [address] PCP - General Family Medicine 04/15/12 Duke Betancourt, Wolf [address] [place] [address] Pharmacist Internal Medicine 08/26/22 03/17/25 Duke Betancourt, SanjayD [address] [place] [phone] Pharmacist Pharmacy 03/18/25 documented as of this encounter
== END ==
LOC: HO.CARD 12:33
PROVIDERS: PCP Family Medicine; Visit Provider Internal Medicine Cardiovascular Disease
DX: I25.5 Ischemic cardiomyopathy (principal)
CPT/HCPCS: 93306

== ENCOUNTER → 2025-05-04 12:36 | Outpatient (BNV) | payer OTHER, SELFPAY | PROVIDERS: PCP Family Medicine; Visit Provider Internal Medicine | DX: I51.89 Other ill-defined heart diseases (principal); I35.8 Other nonrheumatic aortic valve disorders | CPT/HCPCS: 93306 ==

== ENCOUNTER 2025-06-14 13:07 | Outpatient (AMB) | payer OTHER, SELFPAY ==
--- NOTE | 2025-06-14 13:57 | A.OFFVIS_ITS ---
Vital Signs 06/14/25 13:58 Height 5 ft 10 in Weight 159 lb 9.835 oz BMI 22.9 BP 110/72 Blood Pressure Location Lt brachial Position Sitting Pulse 83 Pulse Source Pulse Oximeter Intake Visit Reasons: RS 05/19/25 6m f/u Intake Note: r/s 4 mth f/up Seal Extrusion Operator Required: Yes Seal Extrusion Operator Language: Invasive Cardiovascular Technologist Name: voyce/georgian Accompanied by: Spouse Allergies No Known Allergies Allergy (Verified 03/23/25 18:34) Medication List - Last Reconciled 06/14/25 by João Interiano MD amlodipine 5 mg PO DAILY@1200 aspirin 81 mg PO DAILY atorvastatin 80 mg PO BEDTIME carvedilol 25 mg PO BID docusate sodium 100 mg PO BID PRN dulaglutide (Trulicity) 0.75 mg subcut TH@0900 empagliflozin (Jardiance) 25 mg PO DAILY evolocumab (Repatha SureClick) 140 mg subcut Q2W ezetimibe 10 mg PO BEDTIME mirtazapine 7.5 mg PO BEDTIME pantoprazole 40 mg PO DAILY@0630 pen needle, diabetic Use four times a day or as directed. sacubitril-valsartan 24-26 mg (Entresto) 1 tab PO BID spironolactone 25 mg PO BEDTIME tamsulosin 0.4 mg PO BEDTIME HPI Comments Details: Johny comes for follow-up, accompanied by his . History was obtained with help of ebd teacher over the phone. Patient says overall he has been doing well. He has no symptoms of exertional chest pain or shortness of breath. No orthopnea, PND, leg edema. Most recent echocardiogram shows persistent moderate LV systolic dysfunction. He denies any lightheadedness, syncope. His blood pressure has been generally well controlled. He remains active for his day-to-day activity. Takes all his medications. [facility] Medical History Hospital discharge follow-up Heart failure with reduced ejection fraction Renal failure GERD (gastroesophageal reflux disease) Chronic renal insufficiency Hyperlipidemia Diabetes mellitus Ischemic cardiomyopathy HTN (hypertension) CAD (coronary artery disease) Surgical History S/P CABG x 4 H/O colonoscopy Hx of cholecystectomy Social History Household Members: Spouse Housing: Apartment Do you presently have visiting nurse or other home services: Yes ([facility] 1/month.) Alcohol intake: former Comment: at bedside Patient Tobacco Use Status: Never used Tobacco Second Hand Smoke Exposure: No Advance Directives Date on File: 05/09/23 service: No Review of Systems Const Denies chills, Denies fatigue, Denies fever(s), Denies frequent falls, Denies weakness, Denies weight gain and Denies weight loss ENT Denies dizziness Card Denies chest pain, Denies leg edema, Denies lightheadedness, Denies palpitations, Denies dyspnea and Denies dyspnea on exertion Resp Denies cough, Denies dyspnea and Denies dyspnea on exertion GI Denies hematochezia Musc Denies abnormal gait, Denies muscle weakness, Denies numbness, Denies radiating pain into limb and Denies tingling Neuro Denies abnormal gait, Denies dizziness, Denies frequent falls, Denies numbness, Denies tingling and Denies weakness Endo Denies fatigue and Denies palpitations Physical Exam Vital Signs: Last Vital Signs Pulse 83 06/14/25 13:58 BP 110/72 06/14/25 13:58 BMI result Body Mass Index 22.9 Const General: cooperative, comfortable, no acute distress, alert, awake and well groomed Nutritional Appearance: average body habitus and thin Orientation/consciousness: patient oriented x3 Limitations: no limitations Neck Neck: Yes trachea midline, Yes supple and Yes no JVD Carotids: no bruits Resp Effort & Inspection: normal respiratory effort Auscultation: clear to auscultation bilaterally Cardio Jugular venous distension: no JVD Palpation: normal PMI Rate: regular rate Rhythm: abnormal rhythm with ectopic beats Heart sounds: S1 normal heart sound present, S2 normal heart sound present, no click, no gallops, no murmurs and no rubs GI Auscultation: normal bowel sounds Skin General skin exam: no rashes or lesions noted Neuro General: patient oriented x3 and no focal motor deficits Extrem General: Yes no clubbing, cyanosis or edema Psych Appearance: grossly normal Assessment & Plan Assessment & Plan (1) Ischemic cardiomyopathy: Comment: Severe LV systolic dysfunction prior to coronary artery bypass grafting. Post coronary artery bypass grafting normalized LV systolic function along with neuro hormonal modulation Code(s): I25.5 - Ischemic cardiomyopathy Category: Medical Plan: Ischemic cardiomyopathy with moderate LV systolic dysfunction without overt signs of fluid overload. Currently doing well from cardiac perspective. Given persistent LV systolic dysfunction will continue maximize neurohormonal modulation. Will increase Entresto to 49-51 mg b.i.d. and reduce amlodipine to 2.5 mg at noon time. Follow-up blood pressure check and BMP check in 1 week time. If blood pressure remains adequate will further uptitrate Entresto therapy and discontinue amlodipine therapy. Continue carvedilol, Jardiance as well as spironolactone therapy. Signs and symptoms of heart failure were discussed. Encouraged to continue maintain activity level as tolerated. (2) CAD (coronary artery disease): Code(s): I25.10 - Atherosclerotic heart disease of [place] coronary artery without angina pectoris Category: Medical Plan: CAD status post 4 vessel coronary artery bypass grafting without symptoms of angina. Continue low-dose aspirin therapy for life. Continue high-intensity statin therapy as well as PCSK9 therapy with target goal LDL less than 60 mg/dL. Continue aggressive diabetes management through your office with goal hemoglobin A1c less than 7%. Advised to call me with any anginal symptoms. Will follow up in the clinic in 6 months time, sooner PRN. Thank you for allowing me to partake in his care Orders: Orders Basic Metabolic Panel 1 Week I25.5 - Ischemic cardiomyopathy Medications: New amlodipine At noon time 2.5 mg PO DAILY 30 tabs 5RF sacubitril-valsartan 49-51 mg (Entresto) 1 tab PO BID 60 tabs 5RF Discontinued sacubitril-valsartan 24-26 mg (Entresto) Discontinued Reason: Doctor's Order 1 tab PO BID 180 tabs 3RF Coding Level of Care Code Est Pt Level 4 (38678) Diagnoses Ischemic cardiomyopathy I25.5 CAD (coronary artery disease) I25.10
[2025-06-14 13:58] VITALS: BP 110/72; PULSE 83; BMI 22.9
--- OUTSIDE RECORDS SUMMARY | 2025-06-14 16:58 | XMS_ITS | Encounter Summary ---
Author Organization [facility], Address [address] [place] [address] Phone Care Team Providers Care Heavy Coil Winder Name Role Phone Michelle Zhang MD Primary Care Provider Encounter Details Date Type Department Care Team (Late st Contact Info) Description 02/03/2023 Documentation Only [facility] [address] [place] [place] [address] Abel Ji DO [address] [place] [address] Social History Tobacco Use Types [...] Visit [facility] [address] [place] [address] Abel Ji DO [address] [place] [address] documented as of this encounter Visit Diagnoses Not on filedocumented in this encounter Care Teams Heavy Coil Winder Relationship Specialty Start Date End Date Michelle Zhang MD PCP - General 04/20/19 documented as of this encounter
--- OUTSIDE RECORDS SUMMARY | 2025-06-14 16:58 | XMS_ITS | Clinical Summary ---
Author Organization [facility], Address [address] [place] [address] [place] [address] Phone Care Team Providers Care Evaporator Supervisor Name Role Phone Michelle Zhang MD Primary Care Provider [phone] Allergies No known active allergies Medications aspirin [...] Visit [facility], [address] [place] [address] Abel Ji DO [address] [place] [address] Health Maintenance Due Date Last Done [...] PM EST) Hemoglobin A1C 7.1(H) (4.0-5.6) % [facility] Comment: MONITORING: In known diabetic patients, hemoglobin A1c targets should be discussed with health care provider. DIAGNOSTIC USE: The Citizen Of [place] Diabetes Association (ADA) and the World Health [...] Supplement 1 Testing performed or reported by [facility] Reference Virtual 3-D Display for Smartphones, a Service of [facility], [address] [place] [id number] Guerita Jorge MD, Beauty Parlor Cleaner [facility]# [id number] Blood specimen (specimen) Venous blood / Unknown 08/15/2022 2:13 PM EST 08/15/2022 2:17 PM EST us Abel Ji DO LAB BLOOD ORDERABLES Final Resu lt [facility] from Last 3 Months or Most Recently Relevant to Health Maintenance Insurance [facility] Dual SNP ([id number]) Care Teams Evaporator Supervisor Relationship Specialty Start Date End Date Michelle Zhang MD PCP - General 04/20/19
--- OUTSIDE RECORDS SUMMARY | 2025-06-14 16:58 | XMS_ITS | Encounter Summary ---
Author Organization [facility], Address [address] [place] [address] Phone Care Team Providers Care Fur Cleaner Name Role Phone Michelle Zhang MD Primary Care Provider [phone] Encounter Details Date Type Department Care Team (Late st Contact Info) Description 02/03/2023 Documentation Only [facility] [address] [place] [address] Abel Ji DO [address] [place] [address] Social History Tobacco Use Types [...] Visit [facility] [address] [place] [address] Abel Ji DO [address] [place] [address] documented as of this encounter Visit Diagnoses Not on filedocumented in this encounter Care Teams Fur Cleaner Relationship Specialty Start Date End Date Michelle Zhang MD PCP - General 04/20/19 documented as of this encounter
--- OUTSIDE RECORDS SUMMARY | 2025-06-14 16:58 | XMS_ITS | Encounter Summary ---
Author Organization [employer] Address [address] [place] [address] Care Team Providers Care Machine Guide Base Winder Name Role Phone Michelle Zhang MD Primary Care Provider [phone] Duke Betancourt PharmD Unavailable [phone] Duke Betancourt PharmD Unavailable [phone] Encounter Details Date Type Department Care Team (Late st Contact Info) Description 10/03/2023 Orders Only [facility] MEDICINE [address] [place], [place] [phone] Michelle Zhang MD [address] [place], [place] [phone] Social History Tobacco Use Types Packs/Day Years [...] Care Team (Late st Contact Info) Description 06/27/2025 11:30 AM EST Medication Management [facility]INE [address] [place] [address] Duke Betancourt PharmD [address] [place] [address] documented as of this encounter Goals Goal Patient Goal Type Associated Problems Recent Progress Patient-Stated? Author Blood Pressure < 140/90 Blood Pressure 168/107(2024 2:50 PM EST) No Duke Betancourt PharmD documented as of this encounter Visit Diagnoses Not on filedocumented in this encounter Additional Health Concerns Assessment Noted Time PHQ-9 Depression Total Score: 0 09/10/19 10:48 AM EDT documented as of this encounter Care Teams Machine Guide Base Winder Relationship Specialty Start Date End Date Michelle Zhang MD [address] [place] [address] PCP - General Family Medicine 04/15/12 Duke Betancourt PharmD [address] [place] [address] Pharmacist Internal Medicine 08/26/22 03/17/25 Duke Betancourt PharmD [address] [place] [address] Pharmacist Pharmacy 03/18/25 documented as of this encounter
--- OUTSIDE RECORDS SUMMARY | 2025-06-14 16:58 | XMS_ITS | Encounter Summary ---
Author Organization [facility] [place], Address [address] [place] [address] Phone Care Team Providers Care Administration Specialist Name Role Phone Michelle Zhang MD Primary Care Provider [phone] Reason for Visit * Reason Comments Med Refill Encounter Details Date Type Department Care Team (Late Contact Info) Description 10/28/2022 Refill [facility] [address] [place] [phone] Abel Ji DO [address] [place] [address] Social History Tobacco Use Types [...] Visit [facility] [place], [address] [place] [address] Abel Ji DO [address] [place] [address] documented as of this encounter Visit Diagnoses Not on filedocumented in this encounter Care Teams Administration Specialist Relationship Specialty Start Date End Date Michelle Zhang MD PCP - General 04/20/19 documented as of this encounter
--- OUTSIDE RECORDS SUMMARY | 2025-06-14 16:58 | XMS_ITS | Encounter Summary ---
Author Organization [facility] [place], Address [address] [place] [address] Phone Care Team Providers Care Waist Pleater Name Role Phone Michelle Zhang MD Primary Care Provider [phone] Encounter Details Date Type Department Care Team (Late st Contact Info) Description 12/24/2023 Documentation Only [facility] [address] [place] [address] Zahira Cazares [address] [place] [address] Social History Tobacco Use Types [...] Visit [facility] [address] [place] [address] Abel Ji [address] [place] [address] documented as of this encounter Visit Diagnoses Not on filedocumented in this encounter Care Teams Waist Pleater Relationship Specialty Start Date End Date Michelle Zhang MD PCP - General 04/20/19 documented as of this encounter
--- OUTSIDE RECORDS SUMMARY | 2025-06-14 16:58 | XMS_ITS | Encounter Summary ---
Author Organization [employer] Address [address] [facility] [address] [place] [address] Care Team Providers Care Oracle Financials Developer Name Role Phone Michelle Zhang MD Primary Care Provider [phone] Duke Betancourt PharmD Unavailable [phone] Duke Betancourt PharmD Unavailable [phone] Reason for Visit * Reason Onset Date Comments FYI 06/03/2023 Encounter Details Date Type Department Care Team (Late st Contact Info) Description 06/03/2023 Telephone [facility] MED[facility]INE [address], [place] [phone] Michelle Zhang MD [address] [place], [place] [phone] FYI Social History Tobacco Use Types Packs/Day [...] - 06/03/2023 10:57 AM EST Tc from [facility] with [facility] stating that their will be discharging pt due to not being ableto reach pt. documented in this encounter Plan of Treatment Upcoming Encounters Date Type Department Care Team (Late st Contact Info) Description 06/27/2025 11:30 AM EST Medication Management [facility] [address] [place] [address] Duke Betancourt, SanjayD [address] [place] [address] documented as of this encounter Goals Goal Patient Goal Type Associated Problems Recent Progress Patient-Stated? Author Blood Pressure < 140/90 Blood Pressure 168/107(2024 2:50 PM EST) No Duke Betancourt, PharmD documented as of this encounter Visit Diagnoses Not on filedocumented in this encounter Additional Health Concerns Assessment Noted Time PHQ-9 Depression Total Score: 0 09/10/19 23 10:48 AM EDT documented as of this encounter Care Teams [employer] Developer Relationship Specialty Start Date End Date Michelle Zhang MD [address] [place] [address] PCP - General Family Medicine 04/15/12 Duke Betancourt, PharmD [address] [place] [address] Pharmacist Internal Medicine 08/26/22 03/17/25 Duke Betancourt, PharmD [address] [place] [address] Pharmacist Pharmacy 03/18/25 documented as of this encounter
--- OUTSIDE RECORDS SUMMARY | 2025-06-14 16:59 | XMS_ITS | Clinical Summary ---
Author Organization [employer] Address [address] [place] [address] [address] [place] [address] Care Team Providers Care Course Instructor Name Role Phone Michelle Davis MD Primary Care Provider [phone] Duke Betancourt PharmD Unavailable [phone] Allergies No known active allergies Medications Nutritional [...] and as needed 1 kit 023 Active TRUEplus Lancets 33G misc TEST BLOOD SUGAR THREE TIMES DAILY 100 each 11 024 Active Entresto 24-26 MG tablet TAKE 1 TABLET BY MOUTH TWICE DAILY IN THE MORNING AND IN THE EVENING 024 Active tamsulosin (Flomax) 0.4 MG 24 hr capsule Take 1 capsule (0.4 mg) by mouth at bedtime. 90 capsule 3 05/17/20 25 9:06 AM EST 025 Active ammonium lactate (Lac-Hydrin) 12 % lotion Apply topically if needed for dry skin. 225 g 3 025 Active amLODIPine (Norvasc) 5 MG tabletIndicatio ns:Primary hypertension TAKE 1 TABLET BY MOUTH EVERY EVENING 90 tablet 3 025 Active Trulicity 0.75 MG/0.5ML solution auto-injector INJECT ONE PEN (=0.75MG) SUBCUTANEOUSLY ONCE A WEEK DIRECTED 2 mL 06/13/20 11:52 AM EST 025 Active spironolactone (Aldactone) 25 MG tablet TAKE 1 TABLET BY MOUTH AT BEDTIME 90 tablet 3 05/17/20 25 9:06 AM EST 025 Active Multiple Vitamin (Multivitamin) tablet TAKE 1 TABLET BY MOUTH EVERY MORNING 90 tablet 3 06/13/20 11:52 AM EST 025 Active Ketotifen Fumarate 0.035 % solution Administer 1 drop into affected eye(s) 2 times daily. 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 (HCC) TAKE 1 TABLET BY MOUTH EVERY MORNING 90 tablet 3 025 Active Continuous Glucose Edi Architect (FreeStyle Lilliam 3 [place]) deviceIndicatio ns:Type 2 diabetes mellitus with stage [...] days as directed for CGM 2 each 06/13/20 11:52 AM EST Active glucose blood (FreeStyle Precision Nicholas Test) test strip Use to test blood sugar 3 times daily in case of CGM failure or extremes of BG 100 each 2025 Active Repatha SureClick 140 MG/ML injection INJECT 1 PEN (140 MG) SUBCUTANEOUSLY EVERY 14 DAYS Active loratadine (Claritin) 10 MG tabletIndicatio ns:Ear itch Take 1 tablet (10 mg) by mouth Once per day. 30 tablet 1 025 2025 Active aspirin (Aspirin Low Dose) 81 MG EC tabletIndicatio ns:Ischemic heart disease Take 1 tablet (81 mg) by mouth in the morning. 90 tablet 3 06/13/20 11:52 AM EST Active Aspirin Low Dose 81 MG EC tabletIndicatio ns:Ischemic heart disease TAKE 1 TABLET BY MOUTH EVERY MORNING 90 tablet 3 024 2024 Discontinued(R eorder (will not trigger notification to Pharmacy)) Active Problems Problem Noted Date Diagnosed Date Ear itch 05/06/2025 Xerosis of skin 05/06/2025 Elevated blood pressure read ing in office with diagnosis of hypertension 05/06/2025 Pectoralis muscle strain 04/08/2025 Assessment & Plan [...] seen by Dr. Quispe, vascular specialist at [facility] in Jul 2023 - 06/10/24 AMOL: There [...] (11/18/2023 12:34 PM EDT): - will request compounder for Holter monitor - patient seems to have bradycardia with heart rate in 40s at home Ingrown toenail of both feet 09/05/2023 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 09/05/2023 Assessment & Plan (09/03/2024 8:00 PM EDT): - A1c 7.4% on 09/02/24 - will prescribe diabetic footwear - will refer to online merchant for further evaluation of ingrown toenails Assessment & Plan (09/05/2023 9:59 AM EDT): - will prescribe diabetic footwear - will refer to online merchant for further evaluation of ingrown toenails Constipation [...] on lifestyle modifications - Follow up with compounder as scheduled - Continue working on risk [...] on lifestyle modifications - Follow up with compounder as scheduled - Continue working on risk [...] on lifestyle modifications - Follow up with compounder as scheduled - Continue working on risk [...] on lifestyle modifications - Follow up with compounder as scheduled - Continue working on risk [...] on lifestyle modifications - Follow up with compounder as scheduled - Continue working on risk [...] on lifestyle modifications - Follow up with compounder as scheduled - Continue working on risk [...] on lifestyle modifications - Follow up with compounder as scheduled - Continue working on risk factor management Assessment & Plan (09/05/2023 9:47 AM EDT): >>ASSESSMENT AND PLAN FOR CHRONIC HEART FAILURE WITH PRESERVED EJECTION FRACTION (CMS/HCC) WRITTEN ON 09/16/2022 8:39 AM BY MICHELLE DAIVS MD - completed cardiac rehabilitation - TTE: [...] Jardiance for DM - Follow up with compounder as scheduled - Continue working on risk [...] from prior. Pt was recently admitted to [facility] with CHF exacerbation. BNP up to 2270. While in the hospital diuresed with IV Lasix. Then readmitted to [facility] days later for COVID, CHF, PRITI. On [...] had been as high as 2.0 at [facility]. Seen by Cardiology 06/02/2023 who stated that [...] Dr. Ji Stage 3a chronic kidney disease ([facility]) 2021 Assessment & Plan (02/06/2025 6:54 PM EDT): - Electromechanical Assembly Technician: Dr. Ji - continue following with rand maker - continue ARB and SGLT2i - avoid nephrotoxins - renal dose medication Assessment & Plan (11/02/2024 9:04 AM EDT): - Electromechanical Assembly Technician: Dr. Ji - continue following with rand maker - continue ARB and SGLT2i - avoid nephrotoxins - renal dose medication Assessment & Plan (09/03/2024 7:47 PM EDT): - Electromechanical Assembly Technician: Dr. Ji - sohail following with rand maker - continue ARB and SGLT2i - avoid nephrotoxins - renal dose medication Assessment & Plan (07/11/2024 1:07 PM EST): - Electromechanical Assembly Technician: Dr. Ji - sohail following with rand maker - continue ARB and SGLT2i - avoid nephrotoxins - renal dose medication Assessment & Plan (03/01/2024 10:46 AM EDT): - Electromechanical Assembly Technician: Dr. Ji - sohail following with rand maker - avoid nephrotoxins - renal dose medication Assessment & Plan (11/18/2023 11:34 AM EDT): - Electromechanical Assembly Technician: Dr. Ji - sohail following with rand maker - avoid nephrotoxins - renal dose medication Assessment & Plan (09/04/2023 9:59 PM EDT): - Electromechanical Assembly Technician: Dr. Ji - sohail following with rand maker - avoid nephrotoxins - renal dose medication Assessment & Plan (02/22/2023 4:46 AM EDT): - Electromechanical Assembly Technician: Dr. Ji - sohail following with rand maker - avoid nephrotoxins - renal dose medication Assessment & Plan (11/17/2022 4:27 PM EDT): - Electromechanical Assembly Technician: Dr. Ji - sohail following with rand maker - avoid nephrotoxins - renal dose medication [...] PM EDT): -Following with Dr. Interiano at [facility], last seen in November 2024 -quadruple CABG [...] Enntresto in Feb 2024 - Follow-up with compounder as scheduled Assessment & Plan (11/02/2024 9:03 AM EDT): -Following with Dr. Interiano at [facility], last seen in Feb 2024. -quadruple CABG [...] Enntresto in Feb 2024 - Follow-up with compounder as scheduled Assessment & Plan (09/03/2024 7:48 PM EDT): -Following with Dr. Interiano at [facility], last seen in Feb 2024. -quadruple CABG [...] Enntresto in Feb 2024 - Follow-up with compounder as scheduled Assessment & Plan (07/11/2024 1:04 PM EST): -Following with Dr. Interiano at [facility], last seen in Feb 2024. -quadruple CABG [...] Enntresto in Feb 2024 - Follow-up with compounder as scheduled Assessment & Plan (03/01/2024 10:44 AM EDT): -Following with Dr. Interiano at [facility], last seen in September 2023. -quadruple CABG [...] 2023 due to PRITI. - Follow-up with compounder as scheduled Assessment & Plan (11/18/2023 12:31 PM EDT): -Following with Dr. Interiano at [facility], last seen in September 2023. -quadruple CABG [...] 2023 due to PRITI. - Follow-up with compounder as scheduled Assessment & Plan (09/05/2023 9:52 AM EDT): -Following with Dr. Interiano at [facility], last seen in May 2023. -quadruple CABG [...] 2023 due to PRITI. - Follow-up with compounder as scheduled Assessment & Plan (02/22/2023 4:42 AM EDT): -Following with Dr. Interiano at [facility] - TTE: 02/08/19 Echo LVEF 40-45%, mild-mod LV systolic dysfunction, mild mitral regurgitation - Most recent stress echo on 02/14/22: LVEF 55%, 47% with stress. No ischemia. - Continue Carvedilol, lisinopril, spironolactone and ASA. - Continue Jardiance for DM - Follow-up as scheduled Assessment & Plan (11/17/2022 4:25 PM EDT): -Following with Dr. Interiano at [facility] - TTE: 02/08/19 Echo LVEF 40-45%, mild-mod LV systolic dysfunction, mild mitral regurgitation - Most recent stress echo on 02/14/22: LVEF 55%, 47% with stress. No ischemia. - Continue Carvedilol, lisinopril, spironolactone and ASA. - Continue Jardiance for DM Assessment & Plan (09/16/2022 8:41 AM EDT): -Following with Dr. Interiano at [facility] - TTE: 02/08/19 Echo LVEF 40-45%, mild-mod [...] Pt has worked with CDE RN and canal equipment mechanic in the past - Continue working on [...] Pt has worked with CDE RN and canal equipment mechanic in the past - Continue working on [...] Pt has worked with CDE RN and canal equipment mechanic in the past - Continue working on [...] Pt has worked with CDE RN and canal equipment mechanic in the past - Continue working on [...] Pt has worked with CDE RN and canal equipment mechanic in the past - Continue working on [...] Pt has worked with CDE RN and canal equipment mechanic in the past - Continue working on [...] Pt has worked with CDE RN and canal equipment mechanic in the past - Continue working on [...] Pt has worked with CDE RN and canal equipment mechanic in the past Continue working on lifestyle [...] Pt has worked with CDE RN and canal equipment mechanic in the past - Continue working on [...] Pt has worked with CDE RN and canal equipment mechanic in the past - Continue working on [...] Pt has worked with CDE RN and canal equipment mechanic in the past - Continue working on [...] Pt has worked with CDE RN and canal equipment mechanic in the past - Continue working on [...] the clinic today -comanaged with our pharmacist, compounder, and rand maker. -continue working on lifestyle modifications -Continue Amlodipine 5 mg daily, consider increase if BP is consistently elevated -continue Carvedilol 25 mg bid -continue Spironolactone 25 mg daily (patient is developing mild gynecomastia, but tolerable) -continue sacubitril / valsartan 24-26 mg daily -continue furosemide 20 mg daily as directed by compounder and rand maker - Prescribed BP monitor Assessment & Plan (11/02/2024 11:47 AM EDT): -goal BP <140/90 per JNC-8, < 130/80 per ACC/AHA guideline -BP elevated in the clinic today -comanaged with our pharmacist, compounder, and rand maker. -continue working on lifestyle modifications -Continue Amlodipine 5 mg daily, consider increase if BP is consistently elevated -continue Carvedilol 25 mg bid -continue Spironolactone 25 mg daily (patient is developing mild gynecomastia, but tolerable) -continue sacubitril / valsartan 24-26 mg daily -continue furosemide 20 mg daily as directed by compounder and rand maker - Prescribed BP monitor Assessment & Plan (09/05/2024 4:44 PM EDT): -goal BP <140/90 per JNC-8, < 130/80 per ACC/AHA guideline -BP at goal, normal BP at home, per patient's caregiver -comanaged with our pharmacist, compounder, and rand maker. -continue working on lifestyle modifications -decrease Amlodipine to 5 mg daily. -continue Carvedilol 25 mg bid -continue Spironolactone 25 mg daily (patient is developing mild gynecomastia, but tolerable) -continue sacubitril / valsartan 24-26 mg daily -continue furosemide 20 mg daily as directed by compounder and rand maker - Ordered Albumin, Random Urine W/Creatinine 09/02/24 Assessment & Plan (07/11/2024 1:11 PM EST): -goal BP <140/90 per JNC-8, < 130/80 per ACC/AHA guideline -BP not at goal, normal BP at home, per patient's caregiver -comanaged with our pharmacist, compounder, and rand maker. -continue working on lifestyle modifications -decrease Amlodipine to 5 mg daily. -continue Carvedilol 25 mg bid -continue Spironolactone 25 mg daily (patient is developing mild gynecomastia, but tolerable) -continue sacubitril / valsartan 24-26 mg daily -continue furosemide 20 mg daily as directed by compounder and rand maker Assessment & Plan (03/01/2024 10:45 AM EDT): -goal BP <140/90 per JNC-8, < 130/80 per ACC/AHA guideline -BP at goal -comanaged with our pharmacist, compounder, and rand maker. -continue working on lifestyle modifications -decrease Amlodipine to 5 mg daily. -continue Carvedilol 25 mg bid -continue Spironolactone 25 mg daily -continue valsartan 40 mg daily -continue furosemide 20 mg daily as directed by compounder and rand maker -requested 24 hour BP monitoring with rand maker; check its status -follow up in 3 [...] -BP at goal -comanaged with our pharmacist, compounder, and rand maker. -continue working on lifestyle modifications -decrease Amlodipine to 5 mg daily. -continue Carvedilol 25 mg bid -continue Spironolactone 25 mg daily -continue valsartan 40 mg daily -continue furosemide 20 mg daily as directed by compounder and rand maker -requested 24 hour BP monitoring with rand maker; check its status -follow up in 3 mo or sooner prn Assessment & Plan (09/05/2023 9:46 AM EDT): -goal BP <140/90 per JNC-8, < 130/80 per ACC/AHA guideline -BP not at goal -comanaged with our pharmacist, compounder, and rand maker. -continue working on lifestyle modifications -continue Lisinopril 40 mg daily -decrease Amlodipine to 5 mg daily. -continue Carvedilol 25 mg bid -restart Spironolactone 25 mg daily -discontinue hydralazine 10 mg tid -continue furosemide as directed by compounder and rand maker; currently taking 20 mg MWF, and taking extra for weight gain and holding for weight loss and symptomatic hypotension -requested 24 hour BP monitoring with rand maker; check its status -follow up in 3 mo or sooner prn Assessment & Plan (06/05/2023 2:02 PM EST): Pt here for a HDF -comanaged with our pharmacist, compounder, and rand maker. In the Hospital Lisinopril was discontinued due [...] normal at home -comanaged with our pharmacist, compounder, and rand maker. -continue working on lifestyle modifications -continue Lisinopril 40 mg daily -continue Amlodipine 10mg daily. -continue Carvedilol 25 mg bid -continue Spironolactone 25 mg daily -continue hydralazine to 10 mg tid, decreased dose from 25 mg tid to 10 mg tid on 04/05/21. -pt was advised to check BP before taking hydralizine. hold if systolic BP <110 -requested 24 hour BP monitoring with rand maker; check its status -follow up in 3 mo or sooner prn Assessment & Plan (11/17/2022 4:25 PM EDT): -goal BP <140/90 per JNC-8, < 130/80 per ACC/AHA guideline -BP not at goal, reportedly normal at home -comanaged with our pharmacist, compounder, and rand maker. -continue working on lifestyle modifications -continue Lisinopril 40 mg daily -continue Amlodipine 10mg daily. -continue Carvedilol 25 mg bid -continue Spironolactone 25 mg daily -continue hydralazine to 10 mg tid, decreased dose from 25 mg tid to 10 mg tid on 04/05/21. -pt was advised to check BP before taking hydralizine. hold if systolic BP <110 -requested 24 hour BP monitoring with rand maker; check its status Assessment & Plan (09/16/2022 8:27 AM EDT): -goal BP <140/90 per JNC-8, < 130/80 per ACC/AHA guideline -BP not at goal, reportedly normal at home -comanaged with our pharmacist, compounder, and rand maker. -continue working on lifestyle modifications -continue Lisinopril 40 mg daily -continue Amlodipine 10mg daily. -continue Carvedilol 25 mg bid -continue Spironolactone 25 mg daily -continue hydralazine to 10 mg tid, decreased dose from 25 mg tid to 10 mg tid on 04/05/21. -pt was advised to check BP before taking hydralizine. hold if systolic BP <110 -requested 24 hour BP monitoring with rand maker; check its status Proteinuria 08/17/2012 Backache 01/07/2012 Mood disorder 01/07/2012 Assessment & Plan (11/02/2024 9:04 AM EDT): - major depression - S provider: [facility] Psychiatrevita sauceda mirtazapine and trazodone - treatment Hx: Lorazepam; antipsychotics Assessment & Plan (07/11/2024 1:09 PM EST): - major depression - S provider: [facility] Psychiatrevita Locke - sohail mirtazapine and trazodone - treatment Hx: Lorazepam; antipsychotics Assessment & Plan (03/07/2024 7:43 AM EDT): - major depression - S provider: [facility] Psychiatrevita sauceda mirtazapine and trazodone - treatment Hx: Lorazepam; antipsychotics Assessment & Plan (09/04/2023 9:58 PM EDT): - major depression - S provider: [facility] Psychiatrevita sauceda mirtazapine and trazodone - treatment Hx: Lorazepam; antipsychotics Assessment & Plan (02/22/2023 4:48 AM EDT): - major depression - [facility] provider: [facility] Psychiatrist Dr. Locke - sohail mirtazapine and trazodone - treatment Hx: Lorazepam; antipsychotics Assessment & Plan (11/17/2022 4:33 PM EDT): - major depression - [facility] provider: [facility] Psychiatrist Dr. 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 Davis here for a HDF He was recently admitted to [facility] with increased sob and treated for Congestive heart failure exacerbation. While in the hospital he was diuresed with IV Lasix. A few days after discharge he presented to the emergency room with c/o cough and sob, dx with COVID and treated conservatively as oxygen saturations was 99%. He then presented himself to [facility] for further treatment and was eventually admitted x 3 days for COVID, CHF, and PRITI. Upon discharge lisinopril and Aldactone were discontinued. Disease due to severe acute respiratory syndrome coronavirus 2 (SARS-CoV-2) 05/20/202308/15 Overview (08/18/2023): Problem added by Discern Expert Colon cancer screening 04/04/2023 04/04/202309/04 Gastroenteritis 08/26/2022 09/08/2022 Encounters Date Type Department Care Team Description 06/03/2025 Refill [facility] [address] [place] [address] Michelle Davis MD Ischemic heart disease 05/05/2025 2:20 PM EST Office Visit [facility] [address] [place] [address] Kayla Faith FNP Ear itch (Primary Dx); Xerosis of skin; Elevated blood pressure reading in office with diagnosis of hypertension 05/05/2025 Travel 04/18/2025 Telephone [facility] [address] [place] [id number] Michelle Davis MD 04/14/2025 Results Follow-Up [facility] [address] [place] [phone] Michelle Davis MD Albumin, Random Urine W/Creatinine, Comprehensive Metabolic Panel, Lipid Panel with Reflex to Direct LDL, Hepatitis C Antibody with Reflex to HCV, RNA, Quantitative, Real-Time PCR 04/08/2025 2:00 PM EDT Office Visit [facility] [address] [place] [phone] Mel Duran MD Pectoralis muscle strain, initial encounter (Primary Dx) 04/08/2025 Telephone [facility] [address] [place] [id number] Mel Duran MD triage 04/08/2025 Travel 04/06/2025 Telephone [facility] [address] [place] [phone] Michelle Davis MD Durable Medical Equipment (DME Request: Boost) 03/18/2025 Travel from Last 3 Months Immunizations Immunization Administration [...] Sign Reading Time Taken Comments Blood Pressure 168/107 05/05/2025 2:50 PM EST Pulse 71 05/05/2025 2:50 PM EST Temperature 36.7 C (98 F) 05/05/2025 2:50 PM EST Respiratory Rate 18 05/05/2025 2:50 PM EST Oxygen Saturation 97% 05/05/2025 2:50 PM EST Inhaled Oxygen Concentration - - Weight 72.1 kg (159 lb) 05/05/2025 2:50 PM EST Height 177.8 cm (5' 10 ) 02/07/2025 11:05 AM EDT Body Mass Index 22.81 02/07/2025 11:05 AM EDT Plan of Treatment Upcoming Encounters Date Type Department Care Team (Late st Contact Info) Description 06/27/2025 11:30 AM EST Medication Management [facility] [address] [place] [address] Duke Betancourt, PharmD [address] [place] [address] Health Maintenance Due Date Last Done Comments [...] 75+ series) 2024 COVID-19 Vaccine ( - season) 2025 01/14/2022, 06/14/2021, 08/31/2020, Additional history exists Influenza Vaccine (#1) 2025 , 04/21/2023, 04/21/2023, Additional history exists Diabetes: Hemoglobin A1C 05/10/2025 025, 11/02/2024, 07/08/2024, Additional history exists Diabetes: Foot Exam 09/02/2025 09/02/2024, 09/04/2023, 09/04/2023, Additional history exists Alcohol/Substance Use Screening 11/02/2025 11/02/2024 SDOH Screening 11/02/2025 11/02/2024 Depression Screening 02/07/2026 02/07/2025, 02/08/20 Lipid Panel 04/13/2026 04/13/2025, 10/15, 09/10/2023, Additional history exists Tobacco Screening 05/05/2026 05/05/2025 DTaP/Tdap/Td Vaccines (3 - Td or Tdap) [...] Author Blood Pressure < 140/90 Blood Pressure 168/107(05/05 2:50 PM EST) No Duke Betancourt, PharmD Help patients manage their type 2 diabetes Care Plan Help patients manage their type 2 diabetes No Tim Khan MA Weekly blood pressure task Care Plan Weekly blood pressure task No Samantha Khansmo MA Help patients manage their type 2 diabetes Care Plan Help patients manage their type 2 diabetes No Samantha KhansmoJESSE Patient has diabetic eye disease Care Plan Patient has diabetic eye disease No Samantha KhansmoJESSE Help patients manage their type 2 diabetes Care Plan Help patients manage their type 2 diabetes No Samantha KhansmoJESSE Patient has chronic kidney disease Care Plan Patient has chronic kidney disease No Samantha Khansmo MA Help patients manage their type 2 diabetes Care Plan Help patients manage their type 2 diabetes No Samantha KhansmoJESSE Patient has diabetic neuropathy Care Plan Patient has diabetic neuropathy No Samantha Khansmo MA Weekly blood pressure task Care Plan Weekly blood pressure task No Samantha KhansmoJESSE Weekly blood pressure task Care Plan Weekly blood pressure task No Samantha Khansmo, [place] Weekly blood pressure task Care Plan Weekly blood pressure task No Kory SimpsonparSamantha michaelssmo, [place] Patient has diabetic eye disease Care Plan Patient has diabetic eye disease No Kory SimpsonparSamantha michaelssmoJESSE Patient has diabetic eye disease Care Plan Patient has diabetic eye disease No Kory SimpsonparSamantha michaelssmoJESSE Patient has diabetic eye disease Care Plan Patient has diabetic eye disease No Kory SimpsonparSamantha michaelssmoJESSE Patient has chronic kidney disease Care Plan Patient has chronic kidney disease No Kory SimpsonRosman, [place] Patient has chronic kidney disease Care Plan Patient has chronic kidney disease No [place], [place] Patient has chronic kidney disease Care Plan Patient has chronic kidney disease No [place], [place] Patient has diabetic neuropathy Care Plan Patient has diabetic neuropathy No [place] Patient has diabetic neuropathy Care Plan Patient has diabetic neuropathy No [place], [place] Patient has diabetic neuropathy Care Plan Patient has diabetic neuropathy No [place], [place] Weekly blood pressure task Care Plan Weekly blood pressure task No LangMarie cooper, PharmD Weekly blood pressure task Care Plan Weekly blood pressure task No LangMarie cooper, PharmD Weekly blood pressure task Care Plan Weekly blood pressure task No LangMarie cooper, PharmD Weekly blood pressure task Care Plan Weekly blood pressure task No LangZakiya cooperfer, PharmD Patient has diabetic eye disease Care Plan Patient has diabetic eye disease No LangZakiya cooperfer, PharmD Patient has diabetic eye disease Care Plan Patient has diabetic eye disease No Lang, Marie, PharmD Patient has diabetic eye disease Care Plan Patient has diabetic eye disease No Lang, Marie, PharmD Patient has diabetic eye disease Care Plan Patient has diabetic eye disease No LangZahiraMarie, PharmD Patient has chronic kidney disease Care Plan Patient has chronic kidney disease No LangZahiraMarie, PharmD Patient has chronic kidney disease Care Plan Patient has chronic kidney disease No LangZahiraMarie, PharmD Patient has chronic kidney disease Care Plan Patient has chronic kidney disease No Lang, Marie, PharmD Patient has chronic kidney disease Care Plan Patient has chronic kidney disease No Lang, Marie, PharmD Patient has diabetic neuropathy Care Plan Patient has diabetic neuropathy No Lang, Marie, PharmD Patient has diabetic neuropathy Care Plan Patient has diabetic neuropathy No Lang, Marie, PharmD Patient has diabetic neuropathy Care Plan Patient has diabetic neuropathy No LangZahiraMarie, PharmD Patient has diabetic neuropathy Care Plan Patient has diabetic neuropathy No LangZakiya cooperfer, PharmD Procedures Procedure Name Priority Date/Time Associated Diagnosis [...] 10:41 AM EDT) Triglycerides 115 <150 mg/dL [facility] Comment:Desirable Triglyceri de: less than 150 mg/dLBorderline High Triglyceride 150-199 mg/dLHigh Triglyceride: 200-499 mg/dLVery High Triglyceride: greater than or equal to 5OO mg/dL Cholesterol 124 <200 mg/dL [facility] Comment:Desirable Cholestero l: less than 200 mg/dLBorderline High Cholesterol: 200-239 mg/dLHigh Cholesterol: greater than 239 mg/dL LDL Cholesterol Calculated 61 <100 mg/dL [facility] Comment:Desirable LDL: less than 100 mg/dLNear Optimal/Above Optimal LDL: 110- 129 mg/dLBorderline High LDL: 130-159 mg/dLHigh LDL: 160-189 mg/dLVery High LDL: greater than or equal to 190 mg/dL HDL Cholesterol 40(L) >40 mg/dL [facility] Comment:Desirable HDL: great er than 40 mg/dL Note: This HDL assay may give artificially low results in patients with liver disease. Blood 04/13/2025 10:4 1 AM EDT 04/13/2025 1:13 PM EDT Michelle Davis MD LAB BLOOD ORDERABLES Final Resul t Performing Organization Address [facility] Co de Phone Number [facility] [address] [place] [phone] * (ABNORMAL) Albumin, Random Urine W/Creatinine (04/13/2025 10:41 AM EDT) Creatinine, Urine 73.78 mg/dL [facility] Microalbumin Urine 163.0 mg/L [facility] Microalbum Creatinine Ratio Ur 220.9(H) <30 ug/mg cr [facility] Comment:Albumin/Creatinine R at Reference Ranges: Normal: < 30 ug/mg creatinine Microalbuminuria: 30 - 300 ug/mg creatinineClinical Albuminuria: > 300 ug/mg creatinine Urine 04/13/2025 10:4 1 AM EDT 04/13/2025 11:21 AM EDT Michelle Davis MD LAB URINE ORDERABLES Final Resul t Performing Organization Address [facility] Co de Phone Number [facility] [address] [place] [phone] * Hepatitis C Antibody with Reflex to HCV, RNA, Quantitative, Real-Time PCR (04/13/2025 10:41 AM EDT) Hepatitis C Antibody Nonreactive Nonreactive [facility] Comment:Antibodies to HCV no t detected; does not exclude early acuteHCV infection. Blood Venous blood specimen / Unknown 04/13/2025 10:41 AM EDT 04/13/2025 1:13 PM EDT us Michelle Davis MD LAB BLOOD ORDERABLES Final Resul t [facility] [address] [place] [phone] * (ABNORMAL) Comprehensive Metabolic Panel (04/13/2025 10:41 AM EDT) Sodium 140 135 - 145 mmol/L [facility] Potassium 4.1 3.3 - 5.1 mmol/L [facility] Chloride 106 96 - 108 mmol/L [facility] Carbon Dioxide 29 22 - 29 mmol/L [facility] Anion Gap 9(L) 12 - 20 [facility] Urea Nitrogen (BUN) 24(H) 9 - 16 mg/dL [facility] Creatinine, Serum 1.22 0.5 - 1.4 mg/dL [facility] Estimated Glomerular Filt Rate 58 [facility] Comment:Chronic Kidney Disea se: Estimated GFR < 60 mL/min/1.06c8Ppgvbi Kidney Disease: Estimated GFR < 15 mL/min/1.73m2 Glucose 147(H) 60 - 115 mg/dL [facility] Calcium 9.3 8.4 - 10.2 mg/dL [facility] Bilirubin, Total 0.4 0.0 - 1.0 mg/dL [facility] Aspartate Amino Transferase 27 5 - 37 U/L [facility] Alanine Aminotransferase 35 0 - 40 U/L [facility] Total Protein 7.6 6.5 - 8.0 g/dL [facility] Albumin Level 4.0 3.5 - 5.0 g/dL [facility] Alkaline Phosphatase 97 39 - 117 U/L [facility] Blood Venous blood specimen / Unknown 04/13/2025 10:41 AM EDT 04/13/2025 1:13 PM EDT us Michelle Davis MD LAB BLOOD ORDERABLES Final Resul t [facility] [address] [place] [phone] * (ABNORMAL) POCT glycosylated hemoglobin (Hgb A1c) (02/07/2025 11:08 AM EDT) Hemoglobin A1C 9.0(A) 4.0 - 5.7 % QC Media Lot # [id number] Lot# Expiration Date [id number] Blood Capillary blood specimen / Unknown 02/07/2025 11:08 AM EDT Michelle Davis MD POINT OF CARE TEST ENTER/EDIT OR DERABLES Final Result * Colonoscopy (04/28/2023) Colonoscopy Normal Normal Orlin Tomas MD HEALTH MAINTENANCE Edited Result - Final * Diabetes Eye Exam (01/31/2023) Eye Exam Normal Normal, BIRADS 0 , BIRADS 1 , BIRADS 2, BIRADS 3 , BIRADS 4+ Orlin Tomas MD HEALTH MAINTENANCE Final Result from Last 3 Months or Most Recently Relevant to Health Maintenance Additional Health Concerns Active Problems Noted Date Diagnosed Date Help patients manage their type 2 diabetes 05/05 Weekly blood pressure task 05/05/2025 Help patients manage their type 2 diabetes 05/05 Patient has diabetic eye disease 05/05/2025 Help patients manage their type 2 diabetes 05/05 Patient has chronic kidney disease 05/05/2025 Help patients manage their type 2 diabetes 05/05 Patient has diabetic neuropathy 05/05/2025 Weekly blood pressure task 05/05/2025 Weekly blood pressure task 05/05/2025 Weekly blood pressure task 05/05/2025 Patient has diabetic eye disease 05/05/2025 Patient has diabetic eye disease 05/05/2025 Patient has diabetic eye disease 05/05/2025 Patient has chronic kidney disease 05/05/2025 Patient has chronic kidney disease 05/05/2025 Patient has chronic kidney disease 05/05/2025 Patient has diabetic neuropathy 05/05/2025 Patient has diabetic neuropathy 05/05/2025 Patient has diabetic neuropathy 05/05/2025 Weekly blood pressure task 06/03/2025 Weekly blood pressure task 06/03/2025 Weekly blood pressure task 06/03/2025 Weekly blood pressure task 06/03/2025 Patient has diabetic eye disease 06/03/2025 Patient has diabetic eye disease 06/03/2025 Patient has diabetic eye disease 06/03/2025 Patient has diabetic eye disease 06/03/2025 Patient has chronic kidney disease 06/03/2025 Patient has chronic kidney disease 06/03/2025 Patient has chronic kidney disease 06/03/2025 Patient has chronic kidney disease 06/03/2025 Patient has diabetic neuropathy 06/03/2025 Patient has diabetic neuropathy 06/03/2025 Patient has diabetic neuropathy 06/03/2025 Patient has diabetic neuropathy 06/03/2025 Insurance [facility] (O D-SNP) DELFINA HENDERSON [id number] [facility] Care Teams Course Instructor Relationship Specialty Start Date End Date Michelle Davis MD [address] [place] [phone] PCP - General Family Medicine 04/15/12 Duke Betancourt, SanjayD [address] [place] [address] Pharmacist Pharmacy 03/18/25
--- OUTSIDE RECORDS SUMMARY | 2025-06-14 16:59 | XMS_ITS | Encounter Summary ---
Author Organization [facility], Address [address] [place] [address] Phone Care Team Providers Care Superintendent Electric Power Name Role Phone Michelle Zhang MD Primary Care Provider [phone] Encounter Details Date Type Department Care Team (Late st Contact Info) Description 01/04/2025 Documentation Only [facility] [address] [place] [address] Isiah GarridoTIFFIN, [place] [address] [place] [address] Social History Tobacco Use Types [...] Visit [facility] [address] [place] [address] Abel Ji DO [address] [place] [address] [place] [address] documented as of this encounter Visit Diagnoses Not on filedocumented in this encounter Care Teams Superintendent Electric Power Relationship Specialty Start Date End Date Michelle Zhang MD PCP - General 04/20/19 documented as of this encounter
--- OUTSIDE RECORDS SUMMARY | 2025-06-14 16:59 | XMS_ITS | Encounter Summary ---
Author Organization [employer] Address [address] [place] [address] 7[address] [place] [address] Care Team Providers Care Commodities Trader Name Role Phone Michelle Zhang MD Primary Care Provider [phone] Duke Betancourt PharmD Unavailable [phone] Duke Betancourt PharmD Unavailable [phone] Reason for Visit * Reason Onset Date Comments Appointment Request 09/03/2022 Encounter Details Date Type Department Care Team ([facility] st Contact Info) Description 09/03/2022 Telephone [facility] [address] [place], [place] [phone] Michelle Zhang MD [address] [place], [place] [phone] Appointment Request Social History Tobacco Use Types [...] for 09/09/2022 if possible. Please contact pt [phone] documented in this encounter Plan of Treatment Upcoming Encounters Date Type Department Care Team (Late st Contact Info) Description 06/27/2025 11:30 AM EST Medication Management [facility] [address] [place] [address] Duke Betancourt PharmD [address] [place] [address] documented as of this encounter Goals Goal Patient Goal Type Associated Problems Recent Progress Patient-Stated? Author Blood Pressure < 140/90 Blood Pressure 168/107(2024 2:50 PM EST) No Duke Betancourt PharmD documented as of this encounter Visit Diagnoses Not on filedocumented in this encounter Care Teams Commodities Trader Relationship Specialty Start Date End Date Michelle Zhang MD [address] [place] [phone] PCP - General Family Medicine 04/15/12 Duke Betancourt PharmD [address] [place] [phone] Pharmacist Internal Medicine 08/26/22 03/17/25 Duke Betancourt PharmD [address] [place] [phone] Pharmacist Pharmacy 03/18/25 documented as of this encounter
--- OUTSIDE RECORDS SUMMARY | 2025-06-14 16:59 | XMS_ITS | Encounter Summary ---
Author Organization [employer] Address [address] [facility] 7t [place] [address] Care Team Providers Care Tobacco Drummer Name Role Phone Michelle Zhang MD Primary Care Provider [phone] Duke Betancourt PharmD Unavailable [phone] Duke Betancourt PharmD Unavailable [phone] Encounter Details Date Type Department Care Team (Late st Contact Info) Description 11/21/2023 Orders Only [facility] [address] [place], [place] [phone] Michelle Zhang MD [address] [place], [place] [phone] Bradycardia (Primary Dx) Social History Tobacco Use [...] Description 06/27/2025 11:30 AM EST Medication Management [facility] [address] [place] [address] Duke Betancourt PharmD [address] [place] [address] documented as of this encounter Goals Goal [...] documented as of this encounter Care Teams Tobacco Drummer Relationship Specialty Start Date End Date Michelle Zhang MD [address] [place] [address] [phone] PCP - General Family Medicine 04/15/12 Duke Betancourt PharmD [address] [place] [address] [phone] Pharmacist Internal Medicine 08/26/22 03/17/25 Duke Betancourt PharmD [address] [place] [address] [phone] Pharmacist Pharmacy 03/18/25 documented as of this encounter
--- OUTSIDE RECORDS SUMMARY | 2025-06-14 16:59 | XMS_ITS | Encounter Summary ---
Author Organization [employer] Address [address] [place] [address] 7 [place] [address] Care Team Providers Care Court Advocate Name Role Phone Michelle Zhang MD Primary Care Provider [phone] Duke Betancourt PharmD Unavailable [phone] Duke Betancourt PharmD Unavailable [phone] Reason for Visit * Reason Comments Med Refill Encounter Details Date Type Department Care Team (Late st Contact Info) Description 02/16/2023 Refill [facility] [address] [place] [phone] Michelle Zhang MD [address] [place] [address] [phone] Social History Tobacco Use Types Packs/Day Years [...] Description 06/27/2025 11:30 AM EST Medication Management [facility] [address] [place] [address] [phone] Duke Betancourt, PharmD [address] [place] [address] documented as of this encounter Goals Goal Patient Goal Type Associated Problems Recent Progress Patient-Stated? Author Blood Pressure < 140/90 Blood Pressure 168/107(2024 2:50 PM EST) No Duke Betancourt, Wolf documented as of this encounter Visit Diagnoses Not on filedocumented in this encounter Additional Health Concerns Assessment Noted Time PHQ-9 Depression Total Score: 0 09/10/19 10:48 AM EDT documented as of this encounter Care Teams Court Advocate Relationship Specialty Start Date End Date Michelle Zhang MD [address] [place] [address] PCP - General Family Medicine 04/15/12 Duke Betancourt, PharmD [address] [place] [phone] Pharmacist Internal Medicine 08/26/22 03/17/25 Duke Betancourt, SanjayD [address] [place] [address] Pharmacist Pharmacy 03/18/25 documented as of this encounter
--- OUTSIDE RECORDS SUMMARY | 2025-06-14 16:59 | XMS_ITS | Encounter Summary ---
Author Organization [employer] Address [address] [place] [address] [address] [place] [address] Care Team Providers Care Credit And Collections Analyst Name Role Phone Michelle Zhang MD Primary Care Provider [phone] Duke Betancourt PharmD Unavailable [phone] Duke Betancourt PharmD Unavailable [phone] Reason for Visit * Reason Onset Date Comments Referral 05/17/2022 Encounter Details Date Type Department Care Team (Late st Contact Info) Description 05/17/2022 Telephone [facility] [address] [place], [place] [phone] Michelle Zhang MD [address] [place], [place] [phone] Referral Social History Tobacco Use Types Packs/Day [...] for the holidays. Please contact pt at [phone] * Telephone Encounter - Raquel Jennings RN - 05/21/2022 12:13 PM EST Pt's EC came in to ask ab out drops, let FD know about messages in chart see today's encounter. * Telephone Encounter - Raquel Jennings RN - 05/21/2022 11:18 AM EST Telephone call to pt in regards to asking if his rubber chemist can rx the drops. Call not answered, left vm to call back nurses when able. * Telephone Encounter - Wendy Motta RN - 05/20/2022 12:32 PM EST Pt's spouse walked in requesting eye drops for dry eye. Queued eye drops that might be covered by insurance per [facility] (many not covered). Please review and advise. * Telephone Encounter - Arti Pruitt RN - 05/17/2022 10:43 AM EST LVM to return call to [facility] triage line. * Telephone Encounter - Mel Irizarry - 05/17/2022 8:54 AM EST Symptom: Earache Outcome: Schedule a same-day appointment or talk to a nurse or provider today Reason: No high acuity concerns reported by caller The caller accepted this outcome Tc from Jordana (friend) stating pt has left eye dryness and ear pain. *Jordana Murrieta is on hippa Please contact in Pakistani at [phone] documented in this encounter Plan of Treatment Upcoming Encounters Date Type Department Care Team (Late st Contact Info) Description 06/27/2025 11:30 AM EST Medication Management [facility] [address] [place] [address] Duke Betancourt, PharmD [address] [place] [address] documented as of this encounter Visit Diagnoses Not on filedocumented in this encounter Care Teams Credit And Collections Analyst Relationship Specialty Start Date End Date Michelle Zhang MD [address] [place] [address] PCP - General Family Medicine 04/15/12 Duke Betancourt, PharmD [address] [place] [address] [phone] Pharmacist Internal Medicine 08/26/22 03/17/25 Duke Betancourt, PharmD [address] [place] [address] [phone] Pharmacist Pharmacy 03/18/25 documented as of this encounter
--- OUTSIDE RECORDS SUMMARY | 2025-06-14 16:59 | XMS_ITS | Encounter Summary ---
Author Organization [employer] Address [address] [place] [address] [address] [place] [address] Care Team Providers Care Entry Level Software Engineer Name Role Phone Michelle Zhang MD Primary Care Provider [phone] Duke Betancourt PharmD Unavailable [phone] Duke Betancourt PharmD Unavailable [phone] Encounter Details Date Type Department Care Team (Late Contact Info) Description 11/20/2022 [facility] [employer] [address] [place], [place] [phone] Michelle Zhang MD [address] [place] [address] Social History Tobacco Use Types Packs/Day Years [...] Department Care Team (Late Contact Info) Description 06/27/2025 11:30 AM EST Medication Management [facility] [address] [place] [address] Duke Betancourt, PharmKomal [address] [place] [address] documented as of this encounter Goals Goal [...] documented as of this encounter Care Teams Entry Level Software Engineer Relationship Specialty Start Date End Date Michelle Zhang MD [address] [place] [phone] PCP - General Family Medicine 04/15/12 Duke Betancourt PharmD [address] [place] [phone] Pharmacist Internal Medicine 08/26/22 03/17/25 Duke Betancourt PharmD [address] [place] [phone] Pharmacist Pharmacy 03/18/25 documented as of this encounter
--- OUTSIDE RECORDS SUMMARY | 2025-06-14 16:59 | XMS_ITS | Data Portability ---
Author Organization Locationary [facility], [facility] Address [address] [place] [phone] Care Team Providers Care Limerock Tower Loader Name Role Phone HIM TERRELL OTHER Assessment Encounter Date Assessment Date Assessment LastModified by Organization Details LastModified Time 11/03/2024 11/03/2024 As noted, we were called to see this patient regarding concerns of Cough, itchy eyes, and runny nose. Evaluation in the field was performed by my independent sales representative colleague, as noted above, I provided real-time [...] QL IA, respiratory specimen [address] [facility], [address] [place] [address], [phone] 11:55:22 rapid flu (A+B) 2024 025 [facility], [address] [place] [address], [phone] 11:55:39 Referral None recorded. Procedures None recorded. Surgeries None recorded. Imaging None recorded. Medication Orders Flonase Allergy Relief 50 mcg/actuati on nasal spray,suspe nsion 2024 [facility], [address] [place] [address], [id number], 15:07:34 benzonatate 100 mg capsule 2024 [email or web address] Not available 10:28:28 Patient TargetsNo targets recorded. Patient InstructionsNo instructions recorded. Reason for Referral None Reported. Results Created Date Observation Date Name Description Value Unit Range Abnormal Flag Note LastModifiedBy Organization Detail LastModifiedTime 11/04/1911/03/2024 rapid flu (A+B) Flu negati ve Not Available [facility] ed [address] [place] [address], [phone] 11/03/2024 10:50:32 11/04/1911/03/2024 rapid SARS CoV 2 Ag, QL IA, respi rator y speci men rapid SARS CoV 2 Ag, QL IA, respiratory specimen positi ve Not Available [facility] ed [address] [place] [address], [phone] 11/03/2024 10:50:31 Result Notes None recorded. Medical [...] ot Available Vitals Date Recorded Oxygen saturation Respiratory rate Heart rate Body temperature Systolic And Diastolic Provider Name and Address Organization Details Last Updated DateTime 5 98 % 18 /min 78 /min 97.7 [degF] 162/102 mm[Hg] Not Available [employer] - production 5 10:14:01 Social History None recorded. Functional Status None recorded. Mental Status None recorded. Family History Nothing Reported. Medical History No medical history recorded. Past Encounters Encounter ID Performer Location Encounter Start Date Encounter Closed Date Diagnosis/Indication Diagnosis SNOMED-CT Code Diagnosis ICD10 Code Diagnosis IMO Codes Diagnosis Note [id number] Zach Melgoza MD Main - [facility] [address] [place] [address] 11/03/2024 10:13:51 11/03/2024 18:27:20 Acute COVID-19 3806360727 U07.4 [id number] Health Concerns Section Related Observation LastModified by Organization Detai ls LastModified Time None Recorded Concern Status LastModified by Organization Details LastModified Time None Recorded Advance Directives Directive None Recorded Payers Insurance Date Sequence Insurance Name Policy Number Policy Hodges Covered Member ID Hodges Member ID Guarantor Name 11/03/2024 1 [facility] - DOS ON OR AFTER 2022 - DUAL ELIGIBLE - CORRECTION OPTIONS AND ONE CARE (MEDICARE REPLACEMENT/AD VANTAGE - HMO) [facility] [id number] [facility] Notes Date Note Type Note Provider Name and Address Organization Details Recorded Time 11/03/2024 text/html ROS as noted in the HPI HPI: No adult high school instructor needed as this keno writer/runner speaks Turkmen. Call returned to [facility] via [employer] Ball Warper Tender as this keno writer/runner is remote to triage below. Spoke with [...] Reflux Disease (GERD) PMH Reviewed at 11/03/2024 - 09:11 Allergies Reviewed at 11/03/2024 - 09:11 Comments: Reviewed HPI Broiler Chef Or Cook Organization Information for August Hernandes Business Legal Name: [employer]. Address: [address] [place] [address], Lens Blocker: Robert HAAS No.: [id number] Broiler Chef Or Cook POC Test Results from August Hernandes Rapid COVID antigen (::) COVID: + Attachments uploaded as part of this test result can be found under Documents section. Rapid influenza antigen (::) Flu: - Attachments uploaded as part of this test result can be found under Documents section. ...................... ...................... ...................... ...................... ...................... ...................... ......... Broiler Chef Or Cook Note From August Hernandes: Encountered patient seated upright and conscious with family present. Patient reports since last night, a dry cough, runny nose and itchy eyes. Patient denies chest pain, shortness of breath and fevers. POC Covid swab positive, flu negative; [facility] notified. Skin warm, dry and of appropriate color for ethnicity. Head and neck free of trauma and edema. PERRL. -JVD. Breath sounds present, clear and equal bilaterally. Abdomen soft, non-tender and non-distended. Extremities free of trauma and edema. [facility] contacted: reports patient is not a candidate [...] he is comfortable with remaining home today. [facility] Lab Orders: rapid SARS CoV 2 Ag, QL IA, respiratory specimen: Performed rapid flu (A+B): Performed ...................... ...................... ...................... ...................... ...................... ...................... ......... [facility] Consulted: Zach Melgoza ...................... ...................... ...................... ...................... ...................... ...................... ......... Disposition: Fulfilled Zach Melgoza MD [address] [place] [address],[address] [facility], [place], [address], GIL LEGER 11/03/2024 11:27:09
--- OUTSIDE RECORDS SUMMARY | 2025-06-14 16:59 | XMS_ITS | Encounter Summary ---
Author Organization [employer] Address [address] [place] [address] 7 [place] [address] Care Team Providers Care Woolen Tester Name Role Phone Michelle Zhang MD Primary Care Provider [phone] Duke Betancourt PharmD Unavailable [phone] Duke Betancourt PharmD Unavailable [phone] Reason for Referral * Consultation (Routine) - Closed Specialty Diagnoses / Procedures Referred By Astrid lal Referred To Contact Vascular Surgery Diagnoses PAD (peripheral artery disease) Michelle Zhang MD [address] [place] [address] Phone: tel: fax: [facility] Referral ID Status Reason Start Date Expiration Date V isits Requested Visits Authorized [id number] Closed Specialty Services Required 07/15/2024 07/15/2025 1 1 Encounter Details Date Type Department Care Team (Late st Contact Info) Description 07/15/2024 Orders Only [facility] MEDICINE [address] [place] [address] Michelle Zhang MD [address] [place] [address] PAD (peripheral artery disease) (CMS/HCC) [...] 06/27/2025 11:30 AM EST Medication Management [facility] [address] [place] [address] Duke Betancourt, PharmD [address] [place] [address] Scheduled Referrals Name Type Priority Associated Diagnoses Orde r Schedule Referral to Vascular Surgery Outpatient Referral Routine PAD (peripheral artery disease) ([facility]) Expected: 07/15/2024 (Approximate), Expires: 07/15/2025 documented as [...] PM EST Narrative 08/13/2024 3:41 PM EST [address] [address] XRay Report Signed Patient: Johny Mansfield MR#: [id number] : 1950 Acct:[id number] Age/Sex: 73 / M ADM Date: 08/13/24 Loc: HO.ED Attending Dr: Ordering Physician: Zuleyma Ann Date of Service: 08/13/24 Procedure(s): XR hand wrist LT Accession Number(s): [id number] cc: Zuleyma Ann; Michelle Zhang MD EXAMINATION: [...] 08/13/24 1538 DD/ 1440 TD/TT: 08/13/24 1505 Box Closing Machine Operator: Procedure Note Donotuseinterpreter, Image - 08/13/[address] [address] XRay Report Signed Patient: Johny MansfieldMR#: [id number] : 1950Acct:[id number] Age/Sex: 73 / MADM Date: 08/13/24 Loc: HO.ED Attending Dr: Ordering Physician: Zuleyma Ann Date of Service: 08/13/24 Procedure(s): XR hand wrist LT Accession Number(s): [id number] cc: Zuleyma Ann; Michelle Zhang MD EXAMINATION: [...] 08/13/24 1538 DD/ 1440 TD/TT: 08/13/24 1505 Box Closing Machine Operator: [facility] External Provider IMG XR PROCEDURES Final Result * XR Knee 3 Views Right (08/13/2024 2:40 PM EST) Anatomical Region Laterality Modality Lower Extremities, Knee Right Radiogra phic Imaging 08/13/2024 2:40 PM EST Narrative 08/13/2024 3:38 PM EST [address] [address] XRay Report Signed Patient: Johny Mansfield MR#: [id number] : 1950 Acct:[id number] Age/Sex: 73 / M ADM Date: 08/13/24 Loc: HO.ED Attending Dr: Ordering Physician: Zuleyma Ann Date of Service: 08/13/24 Procedure(s): XR knee RT 3V Accession Number(s): [id number] cc: Zuleyma Ann; Michelle Zhang MD EXAMINATION: [...] 08/13/24 1535 DD/ 1440 TD/TT: 08/13/24 1505 Box Closing Machine Operator: Procedure Note Donotuseinterpreter, Image - 08/13/[address] [address] XRay Report Signed Patient: Johny MansfieldMR#: [id number] : 1950Acct:[id number] Age/Sex: 73 / MADM Date: 08/13/24 Loc: HO.ED Attending Dr: Ordering Physician: Zuleyma Ann Date of Service: 08/13/24 Procedure(s): XR knee RT 3V Accession Number(s): [id number] cc: Zuleyma Ann; Michelle Zhang MD EXAMINATION: [...] by Ga Hurt MD in OV> 08/13/24 1533 DD/ 1440 TD/TT: 08/13/24 1505 Box Closing Machine Operator: [facility] External Provider IMG XR PROCEDURES Final Result documented in this encounter Visit Diagnoses Diagnosis PAD (peripheral artery disease)- Primary Unspecified peripheral vascular disease documented in this encounter Additional Health Concerns Assessment Noted Time PHQ-9 Depression Total Score: 0 03/01/20 24 10:05 AM EDT documented as of this encounter Care Teams Woolen Tester Relationship Specialty Start Date End Date Michelle Zhang MD [address] [place] [address] PCP - General Family Medicine 04/15/12 Duke Betancourt, SanjayD [address] [place] [address] Pharmacist Internal Medicine 08/26/22 03/17/25 Duke Betancourt PharmD [address] [place] [address] Pharmacist Pharmacy 03/18/25 documented as of this encounter
--- OUTSIDE RECORDS SUMMARY | 2025-06-14 16:59 | XMS_ITS | Encounter Summary ---
Author Organization [employer] Address [address] [facility] 7t [place] [address] Care Team Providers Care Grease Cup Filler Name Role Phone Michelle Zhang MD Primary Care Provider [phone] Duke Betancourt PharmD Unavailable [phone] Encounter Details Date Type Department Care Team (Latest Contact Info) Description 04/14/2025 Results Follow-Up [facility] [address] [place], [place] [phone] Michelle Zhang MD [address] [place], [place] [phone] Albumin, Random Urine W/Creatinine, Comprehensive Metabolic Panel, [...] Description 06/27/2025 11:30 AM EST Medication Management [facility] [address] [place] [address] Duke Betancourt PharmD [address] [place] [address] documented as of this encounter Goals Goal [...] documented as of this encounter Care Teams Grease Cup Filler Relationship Specialty Start Date End Date Michelle Zhang MD [address] [place] [address] PCP - General Family Medicine 04/15/12 Duke Betancourt PharmD [address] [place] [address] Pharmacist Pharmacy 03/18/25 documented as of this encounter
--- OUTSIDE RECORDS SUMMARY | 2025-06-14 16:59 | XMS_ITS | Encounter Summary ---
Author Organization [employer] Address [address] [place] [address] 7[address] [place] [address] Care Team Providers Care Honey Liquefier Name Role Phone Michelle Zhang MD Primary Care Provider [phone] Duke Betancourt PharmD Unavailable [phone] Duke Betancourt PharmD Unavailable [phone] Reason for Visit * Reason Onset Date Comments Reschedule 05/20/2023 Encounter Details Date Type Department Care Team (Late st Contact Info) Description 05/20/2023 Telephone [facility] MED[facility]INE [address] [place], [place] [phone] Michelle Zhang MD [address] [place], [place] [phone] Reschedule Social History Tobacco Use Types Packs/Day [...] - 05/20/2023 2:08 PM EST Tc from [place] requesting r/s HDF appt, pt is getting discharge today from [facility]. documented in this encounter Plan of Treatment Upcoming Encounters Date Type Department Care Team (Late st Contact Info) Description 06/27/2025 11:30 AM EST Medication Management [facility] [address] [place] [address] Duke Betancourt, PharmD [address] [place] [address] documented as of this encounter Goals Goal [...] documented as of this encounter Care Teams Honey Liquefier Relationship Specialty Start Date End Date Michelle Zhang MD [address] [place] [address] PCP - General Family Medicine 04/15/12 Duke Betancourt, PharmD [address] [place] [address] Pharmacist Internal Medicine 08/26/22 03/17/25 Duke Betancourt, SanjayD [address] [place] [address] Pharmacist Pharmacy 03/18/25 documented as of this encounter
--- OUTSIDE RECORDS SUMMARY | 2025-06-14 16:59 | XMS_ITS | Patient Health Record ---
Author Organization [facility] Address [address] [place] [address] Care Team Providers Care Seismometer Operator Name Role Phone Leatha SUBRAMANIAN, Michelle Primary Care Provider Fausto Knight [phone] Allergies No Known Allergies Reason For Referral [...] Status Risk Notes Problem Colon cancer screening (385036877) Colon cancer screening (Z12.11) Active confirmed Problem Diverticular disease of colon (074480878) Diverticulosis of large intestine without perforation or abscess without bleeding (K57.30) Active confirmed Problem Long-term current use of antiplatelet drug (081143203019576 ) Long-term use of aspirin therapy (Z79.82) Active confirmed Plan Of Treatment Future Test Test Name Order Date COLONOSCOPY 01/29/2023 Insurance Providers Payer Name Payer Address Payer Phone Subscriber Number Group Number Insured Name Patient Relationship to Insured Coverage Start Date Coverage End Date [facility] [address] Attn [place] [id number] LIANA RAMOS Self - patient is the insured MEDICARE OF [place] [address] [place] [address] [id number] LIANA RAMOS Self - patient is the insured Medical (General) History Medical History History ICD Code NIDDM Hyperlipidemia Hypertension Ischemic heart disease- Dr. Interiano Hx of H pylori Stage 3 chronic kidney disease GERD Negative colonoscopy [place] [address] Luis Eduardo barrios Denies NE,CVA,Lung disease Coronary artery diasease with CABG as be low Surgical History Surgery Date(Month/Year) CCY 3V CABG 01/21/2017
--- OUTSIDE RECORDS SUMMARY | 2025-06-14 16:59 | XMS_ITS | Encounter Summary ---
Author Organization [employer] Address [address] [facility] 7t [place] [address] Care Team Providers Care Machine Brusher Name Role Phone Michelle Zhang MD Primary Care Provider [phone] Duke Betancourt PharmD Unavailable [phone] Duke Betancourt PharmD Unavailable [phone] Encounter Details Date Type Department Care Team (Late st Contact Info) Description 10/15/2024 Telephone [facility]INE [address] [place], [place] [phone] Michelle Zhang MD [address] [place], [place] [phone] Social History Tobacco Use Types Packs/Day Years [...] - 10/15/2024 8:22 AM EDT Tc from [place] stating was sick yesterday and overslept. Pt was unable to attend the appointment because she's providing transportation. Appointment for 10/14 was rescheduled for 11/02 at 11:15 am. documented in this encounter Plan of Treatment Upcoming Encounters Date Type Department Care Team (Late st Contact Info) Description 06/27/2025 11:30 AM EST Medication Management [facility] [address] [place] [address] Duke Betancourt PharmD [address] [place] [address] documented as of this encounter Goals Goal [...] as of this encounter Care Teams Machine Brusher Relationship Specialty Start Date End Date Michelle Zhang MD [address] [place] [address] PCP - General Family Medicine 04/15/12 Duke Betancourt, PharmD [address] [place] [address] Pharmacist Internal Medicine 08/26/22 03/17/25 Duke Betancourt, Wolf [address] [place] [address] Pharmacist Pharmacy 03/18/25 documented as of this encounter
--- OUTSIDE RECORDS SUMMARY | 2025-06-14 16:59 | XMS_ITS | Encounter Summary ---
Author Organization [employer] Address [address] [place] [address] 7t [place] [address] Care Team Providers Care Sheet Manager Name Role Phone Michelle Zhang MD Primary Care Provider [phone] Duke Betancourt PharmD Unavailable [phone] Duke Betancourt PharmD Unavailable [phone] Reason for Visit * Reason Onset Date Comments glucose meter 11/18/2022 Encounter Details Date Type Department Care Team (Late st Contact Info) Description 11/18/2022 Telephone [facility]INE [address] [place], [place] [phone] Michelle Zhang MD [address] [place], [place] [phone] glucose meter Social History Tobacco Use Types [...] Description 06/27/2025 11:30 AM EST Medication Management [facility] [address] [place] [address] Duke Betancourt, Wolf [address] [place] [address] documented as of this encounter Goals Goal [...] as of this encounter Care Teams Sheet Manager Relationship Specialty Start Date End Date Michelle Zhang MD [address] [place] [address] PCP - General Family Medicine 04/15/12 Duke Betancourt PharmD [address] [place] [address] Pharmacist Internal Medicine 08/26/22 03/17/25 Duke Betancourt PharmD [address] [place] [address] Pharmacist Pharmacy 03/18/25 documented as of this encounter
--- OUTSIDE RECORDS SUMMARY | 2025-06-14 16:59 | XMS_ITS | Encounter Summary ---
Author Organization [employer] Address [address] [facility] 7t [place] [address] Care Team Providers Care Real Estate Analyst Name Role Phone Michelle Zhang MD Primary Care Provider [phone] Duke Betancourt PharmD Unavailable [phone] Duke Betancourt PharmD Unavailable [phone] Reason for Visit * Reason Onset Date Comments Durable Medical Equipment 03/28/2023 Encounter Details Date Type Department Care Team (Late st Contact Info) Description 03/28/2023 Telephone [facility]INE [address] [place], [place] [phone] Michelle Zhang MD [address] [place], [place] [phone] Durable Medical Equipment Social History Tobacco Use [...] Description 06/27/2025 11:30 AM EST Medication Management [facility] [address] [place] [address] Duke Betancourt, PharmD [address] [place] [address] documented as of this encounter Goals Goal [...] documented as of this encounter Care Teams Real Estate Analyst Relationship Specialty Start Date End Date Michelle Zhang MD [address] [place] [address] PCP - General Family Medicine 04/15/12 Duke Betancourt, PharmD [address] [place] [address] Pharmacist Internal Medicine 08/26/22 03/17/25 Duke Betancourt, PharmD [address] [place] [address] Pharmacist Pharmacy 03/18/25 documented as of this encounter
== END 2025-06-14 14:17 | disposition home or self-care (01) ==
PROVIDERS: PCP Family Medicine; Visit Provider Internal Medicine Cardiovascular Disease
DX: I25.5 Ischemic cardiomyopathy (principal); I25.10 Atherosclerotic heart disease of native coronary artery without angina pectoris
CPT/HCPCS: 99214

== ENCOUNTER → 2025-06-14 13:07 | Outpatient (BNVA) | payer OTHER, SELFPAY | PROVIDERS: PCP Family Medicine; Visit Provider Internal Medicine Cardiovascular Disease | DX: I25.10 Atherosclerotic heart disease of native coronary artery without angina pectoris (principal); I25.5 Ischemic cardiomyopathy; I11.0 Hypertensive heart disease with heart failure; I50.20 Unspecified systolic (congestive) heart failure; E11.9 Type 2 diabetes mellitus without complications; Z79.82 Long term (current) use of aspirin; Z79.899 Other long term (current) drug therapy; Z79.84 Long term (current) use of oral hypoglycemic drugs; Z95.1 Presence of aortocoronary bypass graft | CPT/HCPCS: 99212 ==